=== PATIENT | female | born 1940 | race Caucasian/White ===

== ENCOUNTER 2016-09-09 16:08 | Inpatient (IN) | payer OTHER ==
[2016-09-09] VITALS (9 sets, daily range): BP systolic 75–97; BP diastolic 44–60; PULSE 91–101; RESP 19–26; TEMP 98.4; Ht 154.9 cm; Wt 60.1 kg
[~2016-09-09] VITALS: Ht 154.9 cm; Wt 60.1 kg
[~2016-09-09 16:08] MED LIST: ETOMIDATE 20 MG INJ ONE; ROCURONIUM 50 MG INJ ONE
--- NOTE | 2016-09-09 17:59 | ERA ---
ER Documentation Chief Complaint Date/Time DATE: 09/09/16 TIME: 17:59 Chief Complaint Back pain HPI The patient is a 75-year-old female, presenting to the ER because of right lower back pain, generalized weakness that began today. She complains of vomiting mostly mucus, dizziness, denies fever, chills, neck pain, chest pain, dyspnea, abdominal pain, diarrhea or constipation or dysuria. She does not smoke does not drink Past medical history: Diabetes mellitus Past surgical history: Right hip ROS All systems reviewed and are negative except as per history of present illness. Allergies Allergies: Coded Allergies: No Known Allergy (Unverified , 09/09/16) Physical Exam Vitals Vital Signs Date Time Temp Pulse Resp B/P Pulse Ox O2 Delivery O2 Flow Rate FiO2 09/09/16 19:29 98.9 09/09/16 16:14 98.8 68 22 88/49 97 Physical Exam Const: No acute distress. Head: Atraumatic. Eyes: Normal Conjunctiva. ENT: Normal External Ears, Nose and Mouth. Neck: Full range of motion. No meningismus. Resp: Clear to auscultation bilaterally. Cardio: Regular rate and rhythm, no murmurs. Abd: Soft, non distended, normal bowel sounds, right CVA tenderness, no right lower quadrant, right upper quadrant, epigastric tenderness Skin: No petechiae or rashes. Back: No midline or flank tenderness. Ext: No cyanosis, or edema. Neur: Awake and alert. No focal deficit Psych: Normal Mood and Affect. Result Diagram: 09/09/16 1810 09/09/16 1810 Results 24 hrs Laboratory Tests Test 09/09/16 16:32 09/09/16 18:10 09/09/16 19:57 Bedside Glucose 205mg/dL Activated Partial Thromboplast Time 23.6Sec Alanine Aminotransferase (ALT/SGPT) 15IU/L Albumin 3.3g/dl Albumin/Globulin Ratio 1.17 Alkaline Phosphatase 118IU/L Anion Gap 21 Aspartate Amino Transf (AST/SGOT) 33IU/L Band Neutrophils % 9.0% Blood Urea Nitrogen 23mg/dl Calcium Level 8.7mg/dl Carbon Dioxide Level 24mmol/L Chloride Level 100mmol/L Creatinine 1.58mg/dl Direct Bilirubin 0.00mg/dl Globulin 2.80g/dl Glucose Level 205mg/dl Hematocrit 37.2% Hemoglobin 12.6g/dl INR International Normalized Ratio 1.11 Indirect Bilirubin 0.4mg/dl Lactic Acid Level 9.1mmol/L Lymphocytes # 1.610^3/ul Lymphocytes % 7.0% Mean Corpuscular Hemoglobin 29.4pg Mean Corpuscular Hemoglobin Concent 33.7g/dl Mean Corpuscular Volume 87.3fl Mean Platelet Volume 8.4fl Neutrophils # 19.710^3/ul Neutrophils % 84.0% Platelet Count 99621^3/UL Platelet Estimate PLT APPEAR ADEQUATE Potassium Level 3.7mmol/L Prothrombin Time 14.3Sec Prothrombin Time Ratio 1.1 Red Blood Count 4.2610^6/ul Red Cell Distribution Width 13.9% Sodium Level 141mmol/L Total Bilirubin 0.4mg/dl Total Protein 6.1g/dl Troponin I < 0.012ng/ml White Blood Count 23.410^3/ul Bedside Urine Blood 1+ Bedside Urine Glucose (UA) Negative Bedside Urine Ketones (LAB) Negative Bedside Urine Leukocyte Esterase (L 3+ Bedside Urine Nitrite (LAB) Negative Bedside Urine Protein (LAB) 1+ Bedside Urine pH (LAB) 6.0 Current Medications Medications (Trade) Dose Ordered Sig/Nisreen Route PRN Reason Start Time Stop Time Status Last Admin Dose Admin Sodium Chloride 1950 ml 1,950 ml BOLUS OVER 2 HOURS STAT IV* 09/09/16 18:09 09/09/16 18:11 DC 09/09/16 18:37 Vancomycin HCl 250 ml @ 125 mls/hr ONCE IVPB 09/09/16 19:30 09/09/16 21:29 Piperacillin Sod/ Tazobactam Sod 50 ml @ 100 mls/hr ONCE ONCE IVPB 09/09/16 19:30 09/09/16 19:59 DC Sodium Chloride (NS) 1,000 ml @ 75 mls/hr [id number] IV 09/09/16 19:47 UNV Ondansetron HCl (Zofran Inj) 4 mg Q6H PRN IV NAUSEA AND/OR VOMITING 09/09/16 20:00 UNV Nitroglycerin (Nitroglycerin (Sl Tab) 0.4 Mg) 1 tab Q5M PRN SL CHEST PAIN 09/09/16 20:00 UNV Acetaminophen (Tylenol Liquid) 650 mg Q6H PRN PO PAIN LEVEL 1-3 OR FEVER 09/09/16 20:00 UNV Morphine Sulfate (morphine) 2 mg Q4H PRN IV PAIN LEVEL 7-10 09/09/16 20:00 UNV Lorazepam (Ativan) 1 mg Q2H PRN IV ANXIETY 09/09/16 20:00 UNV Docusate Sodium (Colace) 100 mg Q12H PRN PO CONSTIPATION 09/09/16 20:00 UNV Famotidine (Pepcid Iv) 20 mg Q12 IV 09/09/16 21:00 UNV Heparin Sodium (Porcine) (Heparin (5000 Units/0.5 ml)) 5,000 unit Q12 SC 09/09/16 21:00 UNV Insulin Aspart (Novolog Insulin Pen) NOVOLOG *MILD* ALGORITHM WITH MEALS BEDTIME SC 09/09/16 21:00 UNV Miscellaneous Information (* Miscellaneous Pharmacy Order) HYPOGLYCEMIA PROTOCOL w... ONCE ONCE XX 09/09/16 20:00 09/09/16 20:01 DC Miscellaneous Information (* Miscellaneous Pharmacy Order) Discontinue Glyburide, Glipizide,... ONCE ONCE XX 09/09/16 20:00 09/09/16 20:01 DC Miscellaneous Information Discontinue all previ... ONCE ONCE XX 09/09/16 20:00 09/09/16 20:01 DC Sodium Chloride 1,000 ml @ 1,000 mls/hr Q1H IV 09/09/16 19:47 09/09/16 21:46 UNV Piperacillin Sod/ Tazobactam Sod (Zosyn 3.375gm/ 100 ml (Pmx)) 100 ml @ 200 mls/hr Q6 IVPB 09/10/16 00:00 UNV Vancomycin HCl (Vanco Iv Per Pharmacy) VANCOMYCIN PER PHARMACY PER PROTOCOL XX 09/09/16 20:00 UNV Diagnostic Test (Pha) (Accucheck) 1 ea 02 XX 09/10/16 02:00 Miscellaneous Information 1 ea NOTE XX 09/09/16 20:30 Glucose (Glutose) 15 gm Q15M PRN PO DECREASED GLUCOSE 09/09/16 20:30 Glucose (Glutose) 22.5 gm Q15M PRN PO DECREASED GLUCOSE 09/09/16 20:30 Dextrose (D50w Syringe) 25 ml Q15M PRN IV DECREASED GLUCOSE 09/09/16 20:30 Dextrose (D50w Syringe) 50 ml Q15M PRN IV DECREASED GLUCOSE 09/09/16 20:30 Glucagon (Glucagen) 1 mg Q15M PRN IM DECREASED GLUCOSE 09/09/16 20:30 Glucose (Glutose) 15 gm Q15M PRN BUCCAL DECREASED GLUCOSE 09/09/16 20:30 Famotidine (Pepcid Iv) 20 mg DAILY IV 09/10/16 09:00 Procedures/[place] [id number] Radiology Main Line: [phone] DIAGNOSTIC IMAGING REPORT Patient: DARIUS WHITE : 1940 Age: 75 Sex: F MR #: [id number] DOS: 09/09/16 180 Ordering MD: SHAREE JENKINS MD Location: E/R Room/Bed: PROCEDURE: XR Chest. CLINICAL INDICATION: Sepsis TECHNIQUE: Chest AP portable COMPARISON: None available FINDINGS: The mediastinal structures are unremarkable. There is calcification of the thoracic aorta (consistent with atherosclerosis). The heart is normal in size and configuration. The pulmonary vascularity is normal. The lung modi are unremarkable. No consolidation is identified. The pleural spaces are unremarkable. There are senescent changes of the axial skeleton. IMPRESSION: Calcification of the thoracic aorta (consistent with atherosclerosis). No evidence for active cardiopulmonary disease. RPTAT: HGDB .Ayo Villarreal MD, Date Time Electronically viewed and signed by .Ayo Villarreal MD, on 09/09/2016 18:30 .B/ CC: SHAREE JENKINS MD MEDICAL MAKING DECISION: The patient is a 75-year-old female, presenting with acute septic shock. She was treated with normal saline 30 mL/kg IV, Zosyn IV, vancomycin IV with good response. The differential diagnoses considered include but are not limited to cholelithiasis, cholecystitis, cystitis, pancreatitis, hepatitis, gastritis, peptic ulcer disease, gastric ulcer, appendicitis, diverticulitis, cholangitis, choledocholithiasis, partial small bowel obstruction. Admit MDM: Patient's infectious symptoms have not stabilized and the patient is at risk of rapid decompensation. The patient will be admitted for careful hydration, antibiotic therapy, and infectious source control. Severe Sepsis criteria: Infectious source: Pyelonephritis End organ damage indicated by: Lactate > 2.0 mmol/L Hypotension (SBP < 90 or >40 mmHG drop or MAP < 65) Sepsis Management: Time of recognition of severe sepsis/septic shock:6:15 PM Within 3 hours of recognition: Blood cultures x 2 before broad-spectrum antibiotics: Yes 30 ml/kg NS bolus completed Initial lactate 9.1 Repeat lactate pending Critical Care: Critical care time 35 minutes Emergent fluid management while maintaining close respiratory support. Provision of immediate and broad-spectrum antibiotic therapy. Simultaneous assessment for possible sources in order to direct targeted therapy. Consideration for invasive and chemical support to prevent cardiopulmonary collapse. Septic Shock Assessment: Any lactic acid > 4.0 yes Persistent hypotension (SBP < 90 or 40 mmHg drop, MAP < 65) despite 30 mL/kg IV fluid bolusno Volume Re-assessment for Septic Shock (post 30 ml/kg bolus): Temp98.5 BP105/46 HR95, RR20, Pox 95% RA Heart regular rate & rhythm Lungs no crackles Skin Warm & dry & pink Cap Refill less than 2 seconds Peripheral pulses radially present Persistent Hypotension Treatment: Comfort care no Central line not indicated Vasopressor started not indicated I considered further perfusion assessment with CVP measurement, SCVO2, bedside ultrasound volume assessment, passive leg raise, trial of further fluid bolus. And proceeded withIV fluid Departure Diagnosis: Primary Impression: Septic shock Additional Impression: Pyelonephritis Condition: Critical Comments I discussed the findings with the patient. I discussed the patient with the on- call hospitalist Dr. Nj who was made aware of the lab, the treatment, the patient condition. The patient is admitted to ICU at 7:45 PM SHAREE JENKINS MD Sep 09, 2016 17:59
[2016-09-09] MEDS ORDERED: SODIUM CHLORIDE 0.9% 1L BAG IV* STA (18:09)
--- NOTE | 2016-09-09 18:30 | RADRPT ---
PROCEDURE: XR Chest. CLINICAL INDICATION: Sepsis TECHNIQUE: Chest AP portable COMPARISON: None available FINDINGS: The mediastinal structures are unremarkable. There is calcification of the thoracic aorta (consiste nt with atherosclerosis). The heart is normal in size and configuration. The pulmonary vascularity is normal. The lung modi are unremarkable. No consolidation is identified. The pleural spaces are unremarkable. There are senescent changes of the axial skeleton. IMPRESSION: Calcification of the thoracic aorta (consistent with atherosclerosis). No evidence for active cardiopulmonary disease. RPTAT: HGDB .Ayo Villarreal MD, MD Date Time Electronically viewed and signed by .Ayo Villarreal MD, on 09/09/2016 18:30 .B/
[2016-09-09 18:32] LABS: HEMATOCRIT 37.2 % (37.0-47.0); HEMOGLOBIN 12.6 g/dl (12.0-16.0); MEAN CORPUSCULAR HEMOGLOBIN 29.4 pg (29.0-33.0); MEAN CORPUSCULAR HGB CONC 33.7 g/dl (32.0-37.0); MEAN CORPUSCULAR VOLUME 87.3 fl (82.0-101.0); MEAN PLATELET VOLUME 8.4 fl (7.4-10.4); PLATELET COUNT 176 10^3/UL (140-440); RED BLOOD COUNT 4.26 10^6/ul (4.20-5.40); RED CELL DISTRIBUTION WIDTH 13.9 % (11.5-14.5); UNCORRECTED WBC 23.4 10^3/ul (4.8-10.8); WHITE BLOOD COUNT 23.4 10^3/ul (4.8-10.8)
[2016-09-09 18:35] LABS: CONDITION 1; LH ANALYZER COMMENTS 1; SUSPECT 1
[2016-09-09 18:39] LABS: ALBUMIN 3.3 g/dl (3.3-4.9); CHLORIDE 100 mmol/L (97-110); INR 1.11; POTASSIUM 3.7 mmol/L (3.5-5.1); PROTIME 14.3 Sec (12.2-14.2); PT RATIO 1.1; SODIUM 141 mmol/L (135-144)
[2016-09-09 18:41] LABS: BILIRUBIN,INDIRECT 0.4 mg/dl (0-1.1); BILIRUBIN,TOTAL 0.4 mg/dl (0.2-1.3); CREATININE 1.58 mg/dl (0.44-1.00)
[2016-09-09 18:42] LABS: ALANINE AMINOTRANSFERASE 15 IU/L (13-69); ALBUMIN/GLOBULIN RATIO 1.17; ALKALINE PHOSPHATASE 118 IU/L (42-121); ANION GAP 21 (8-16); ASPARTATE AMINO TRANSFERASE 33 IU/L (15-46); BLOOD UREA NITROGEN 23 mg/dl (7-20); CALCIUM 8.7 mg/dl (8.4-10.2); CARBON DIOXIDE 24 mmol/L (21-31); GLUCOSE 205 mg/dl (70-220); TOTAL PROTEIN 6.1 g/dl (6.1-8.1)
[2016-09-09 18:45] LABS: PARTIAL THROMBOPLASTIN TIME 23.6 Sec (25.0-35.0)
[2016-09-09 19:02] LABS: TROPONIN-I < 0.012 ng/ml (0.00-0.12)
[2016-09-09 19:10] LABS: LYMPHOCYTES # 1.6 10^3/ul (0.8-2.9); NEUTROPHIL # 19.7 10^3/ul (1.6-7.5); PLATELET ESTIMATE PLT APPEAR ADEQUATE
[2016-09-09] MEDS ORDERED: VANCOMYCIN 1 GM (PMX) 250 ML IVPB SCH (19:30)
[2016-09-09] MEDS ORDERED: PIPER-TAZO 2.25 GM (PMX) 50 ML IVPB ONE (19:30)
[2016-09-09 19:55] LABS: URINE BLOOD (Dip) POC 1+ (NEGATIVE)
[2016-09-09] MEDS ORDERED: DOCUSATE SODIUM 100 MG CAP PO PRN (20:00)
[2016-09-09] MEDS ORDERED: NITROGLYCERIN (SL) 0.4 MG TAB SL PRN (20:00)
[2016-09-09] MEDS ORDERED: VANCOMYCIN IV PER PHARMACY XX SCH (20:00)
[2016-09-09 20:12] LABS: ADD UMIC YES; URINE BILIRUBIN (Dip) NEGATIVE (NEGATIVE); URINE BLOOD (Dip) 1+ (NEGATIVE); URINE COLOR RED (YELLOW); URINE GLUCOSE (Dip) NEGATIVE (NEGATIVE); URINE KETONES (Dip) TRACE (NEGATIVE); URINE LEUKOCYTE ESTERASE (Dip) 3+ (NEGATIVE); URINE NITRITE (Dip) NEGATIVE (NEGATIVE); URINE TOTAL PROTEIN (Dip) TRACE (NEGATIVE); URINE UROBILINOGEN (Dip) 0.2 E.U./dL (0.1-1.0)
--- NOTE | 2016-09-09 20:23 | HP ---
Date/Time of Note Date/Time of Note DATE: 09/09/16 TIME: 20:15 Assessment/Plan VTE Prophylaxis VTE Prophylaxis Intervention: heparin Lines/Catheters Urinary Cath still in place: No Assessment/Plan Assessment/Plan 75 yo female with a past medical history of type II DM, chronic pain who complains of weakness and decreased urinary output for the last several days. 1. Severe Sepsis 2/2 UTI - leukocytosis/hypotension/lactic acidosis, will admit the patient to the ICU, monitor for acute changes, IVF, if needed pressor support, IV antibiotics, f/u blood and urine cultures, trend lactic acid 2. Acute renal failure - 2/2 to ATN - will renally adjust medications, check renal US, avoid nephrotoxins 3. Type II DM - uncontrolled - will check hgba1c, labs, ISS 4. Metabolic acidosis 2/2 #1 - will continue to monitor trend 5. GI ppx - pepcid 6. DVT ppx - heparin answered all of her questions. as per clinical course. this critical care note took greater than 1 hour to complete HPI/ROS Admit Date/Time Admit Date/Time 09/09/2016, 8:16 pm Hx of Present Illness 75 yo female with a past medical history of type II DM, chronic pain who complains of weakness and decreased urinary output for the last several days. She states that she has increasing fatigue. Associated with nausea and 4 episodes of NBNB vomitus. Her urine output has decreased dramatically and is not getting any better at this time. Denies any discharge, hematuria, or increased frequency. She complains of chills, and mild flank pain on the right in comparison to the left. Denies any chest pain, shortness of breath, recent travel, headaches, sick contacts, dizziness, or other constitutional symptoms. ED course: NS boluses x2 for hypotension, IV antibiotics ROS 14 point review of systems completed, please refer to HPI for any positive findings PMH/Family/Social Past Medical History chronic back pain Medical History: diabetes Past Surgical History ALVARO-BSO Family History Significant Family History: no pertinent family hx, heart disease (none), cancer (none), COPD (none) Social History Alcohol Use: none Smoking Status: Current every day smoker (1 cig/day) Drug Use: none Exam/Review of Systems Vital Signs Vitals Vital Signs Date Time Temp Pulse Resp B/P Pulse Ox O2 Delivery O2 Flow Rate FiO2 2/20/17 19:29 98.9 09/09/16 16:14 68 22 88/49 97 Exam Exam Gen Sheeba: mild to moderate distress 2/2 to right flank pain, AAOx4 HEENT: NC/AT, PERRLA, EOMI, no pharyngeal erythema, no tonsillar exudates, no lymphadenopathy, no JVD, no carotid bruits, MM dry NECK: supple, no thyromegaly THORAX: symmetrical, no obvious deformities CV: S1S2, RRR, no M/G/R Lungs: CTAB no W/C/R/R Abd: soft, NT/ND, +BS, no rebound, no guarding, neg HSM, mild right CVA tenderness EXT: no edema, no ecchymosis, no clubbing, FROM Neuro: CN II-XII grossly intact, no focal deficits Psych: good mentation, alert and oriented, fair mood and affect Skin: C/D/I Labs Result Diagram: 09/09/16180909/09/16 181 Medications Medications Current Medications Vancomycin HCl 250 ml @ 125 mls/hr ONCE IVPB ; Start 09/09/16 at 19:30; Stop at 21:29 Sodium Chloride (NS) 1,000 ml @ 75 mls/hr [id number] IV ; Start 09/09/16 at 19:47 Ondansetron HCl (Zofran Inj) 4 mg Q6H PRN IV NAUSEA AND/OR VOMITING; Start at 20:00 Nitroglycerin (Nitroglycerin (Sl Tab) 0.4 Mg) 1 tab Q5M PRN SL CHEST PAIN; Start 09/09/16 at 20:00 Acetaminophen (Tylenol Liquid) 650 mg Q6H PRN PO PAIN LEVEL 1-3 OR FEVER; Start 09/09/16 at 20:00 Morphine Sulfate (morphine) 2 mg Q4H PRN IV PAIN LEVEL 7-10; Start 09/09/16 at 20:00 Lorazepam (Ativan) 1 mg Q2H PRN IV ANXIETY; Start 09/09/16 at 20:00 Docusate Sodium (Colace) 100 mg Q12H PRN PO CONSTIPATION; Start 09/09/16 at 20: 00 Heparin Sodium (Porcine) 5000 unit 5,000 unit Q12 SC ; Start 09/09/16 at 21:00 Sodium Chloride 1,000 ml @ 1,000 mls/hr Q1H IV ; Start 09/09/16 at 19:47; Stop 09/09/16 at 21:46 Piperacillin Sod/ Tazobactam Sod (Zosyn 3.375gm/ 100 ml (Pmx)) 100 ml @ 200 mls /hr Q6 IVPB ; Start 09/10/16 at 00:00 Diagnostic Test (Pha) (Accucheck) 1 ea 02 XX ; Start 09/10/16 at 02:00 Miscellaneous Information 1 ea NOTE XX ; Start 09/09/16 at 20:30 Glucose (Glutose) 15 gm Q15M PRN PO DECREASED GLUCOSE; Start 09/09/16 at 20:30 Glucose (Glutose) 22.5 gm Q15M PRN PO DECREASED GLUCOSE; Start 09/09/16 at 20: 30 Dextrose (D50w Syringe) 25 ml Q15M PRN IV DECREASED GLUCOSE; Start 09/09/16 at 20:30 Dextrose (D50w Syringe) 50 ml Q15M PRN IV DECREASED GLUCOSE; Start 09/09/16 at 20:30 Glucagon (Glucagen) 1 mg Q15M PRN IM DECREASED GLUCOSE; Start 09/09/16 at 20:30 Glucose (Glutose) 15 gm Q15M PRN BUCCAL DECREASED GLUCOSE; Start 09/09/16 at 20 :30 Famotidine 20 mg 20 mg DAILY IV ; Start 09/10/16 at 09:00 Sodium Chloride (NS) 1,000 ml @ 1,000 mls/hr Q1H ONCE IV ; Start 09/09/16 at 20 :30; Stop 09/09/16 at 21:29 Procedures Procedures CXR IMPRESSION: Calcification of the thoracic aorta (consistent with atherosclerosis). No evidence for active cardiopulmonary disease. LUIGI KIM MD Sep 09, 2016 20:23
[2016-09-09] MEDS ORDERED: GLUCOSE GEL 15 GRAM TUBE PO PRN ×2 (20:30)
[2016-09-09] MEDS ORDERED: SOD CHLORIDE 0.9% 1,000 ML IV ONE (20:30)
[2016-09-09] MEDS ORDERED: DEXTROSE 50% 50 ML SYRINGE IV PRN (20:30)
[2016-09-09] MEDS ORDERED: GLUCOSE GEL 15 GRAM TUBE BUCCAL PRN (20:30)
[2016-09-09] MEDS ORDERED: GLUCAGON 1 MG INJ IM PRN (20:30)
[2016-09-09 20:36] LABS: BACTERIA,URINE MANY
[2016-09-09] MEDS: SOD CHLORIDE 0.9% 1,000 ML IV SCH ×3 (20:36→20:47)
--- NOTE | 2016-09-09 20:49 | RADRPT ---
PROCEDURE: Retroperitoneal ultrasound. CLINICAL INDICATION: Flank pain TECHNIQUE: Sainz scale and color doppler ultrasound images of the retroperitoneum, kidneys, urinary bladder COMPARISON: No prior studies are available for comparison. FINDINGS: Right kidney 12.9 cm in length. Right renal cortical thickness is preserved. Left kidney 11.5 cm in length. Left renal cortical thickness is preserved. Normal echogenicity. Mild right-sided hydronephrosis. No renal calculi. A few cortical and parapelvic cysts are present within the right kidney measuring up to 1.7 cm. Bladder: Urinary bladder is not well distended however there appears to be significant wall thickening measur ing at least 9.6 mm. Partial visualization of gallstones. IMPRESSION: Mild right-sided hydronephrosis. No renal calculi are seen. Apparent wall thickening of the urinary bladder possibly due to under distension. Recommend correla tion with urinalysis. Incidental finding of gallstones. RPTAT: AADD .Lalo Gee MD, MD Date Time Electronically viewed and signed by .Lalo Gee MD, on 09/09/2016 20:49 .B/
[2016-09-09] MEDS: INSULIN ASPART [NOVOLOG] 3 ML PEN SC SCH (21:00)
[2016-09-09] MEDS ORDERED: FAMOTIDINE 20 MG INJ IV SCH (21:00)
[2016-09-09 21:44] LABS: HEMATOCRIT 34.4 % (37.0-47.0); HEMOGLOBIN 11.4 g/dl (12.0-16.0); MEAN CORPUSCULAR HEMOGLOBIN 29.2 pg (29.0-33.0); MEAN CORPUSCULAR HGB CONC 33.2 g/dl (32.0-37.0); MEAN PLATELET VOLUME 7.4 fl (7.4-10.4); PLATELET COUNT 193 10^3/UL (140-440); RED CELL DISTRIBUTION WIDTH 14.2 % (11.5-14.5); UNCORRECTED WBC 26.7 10^3/ul (4.8-10.8); WHITE BLOOD COUNT 26.7 10^3/ul (4.8-10.8)
[2016-09-09] MEDS: HEPARIN 5,000 UNIT/0.5 ML SYG SC SCH (21:47)
[2016-09-09 21:48] LABS: CONDITION 1; LH ANALYZER COMMENTS 1; SUSPECT 1
[2016-09-09 21:57] LABS: INR 1.38; PT RATIO 1.3
[2016-09-09 21:58] LABS: PARTIAL THROMBOPLASTIN TIME 41.2 Sec (25.0-35.0)
[2016-09-09 21:59] LABS: ALBUMIN 2.6 g/dl (3.3-4.9); CHLORIDE 106 mmol/L (97-110)
[2016-09-09 22:00] LABS: POTASSIUM 3.3 mmol/L (3.5-5.1); SODIUM 144 mmol/L (135-144)
[2016-09-09 22:02] LABS: ALANINE AMINOTRANSFERASE 16 IU/L (13-69); ALBUMIN/GLOBULIN RATIO 0.96; ALKALINE PHOSPHATASE 84 IU/L (42-121); ANION GAP 20 (8-16); ASPARTATE AMINO TRANSFERASE 28 IU/L (15-46); BILIRUBIN,INDIRECT 0.2 mg/dl (0-1.1); BILIRUBIN,TOTAL 0.2 mg/dl (0.2-1.3); BLOOD UREA NITROGEN 21 mg/dl (7-20); CARBON DIOXIDE 21 mmol/L (21-31); CREATININE 1.33 mg/dl (0.44-1.00); GLUCOSE 147 mg/dl (70-220); TOTAL PROTEIN 5.3 g/dl (6.1-8.1)
[2016-09-09 22:03] LABS: CALCIUM 7.1 mg/dl (8.4-10.2); LACTATE DEHYDROGENASE 461 IU/L (313-618)
[2016-09-09 22:07] LABS: LYMPHOCYTES # 0.5 10^3/ul (0.8-2.9)
[2016-09-09 22:08] LABS: PLATELET ESTIMATE PLT APPEAR ADEQUATE
[2016-09-09] MEDS ORDERED: POTASSIUM CHLORIDE (SR) 20 MEQ TAB PO STA (22:14)
[2016-09-09 22:18] LABS: TROPONIN-I < 0.012 ng/ml (0.00-0.12)
[2016-09-09] MEDS ORDERED: MAGNESIUM SULFATE 3 GM in SOD CHLORIDE 0.9% 100 ML IVPB ONE (22:30)
[2016-09-10] VITALS (95 sets, daily range): BP systolic 64–155; BP diastolic 36–83; PULSE 91–149; RESP 12–34
[2016-09-10] MEDS: PIPER-TAZO 3.375 GM IV (PMX) 100 ML IVPB SCH ×3 (00:48→12:40)
[2016-09-10] MEDS: ACCUCHECK AT 2AM (Patients on SS coverage) XX SCH (02:08)
[2016-09-10] MEDS: morphine 2 MG INJ IV PRN ×2 (02:10→23:03)
[2016-09-10] MEDS: ONDANSETRON 4 MG INJ IV PRN ×2 (02:15→23:03)
[2016-09-10 04:58] LABS: EOSINOPHILS % 0.3 % (0.0-7.0); HEMATOCRIT 35.4 % (37.0-47.0); LYMPHOCYTES # 0.2 10^3/ul (0.8-2.9); LYMPHOCYTES % 2.2 % (15.0-51.0); MEAN CORPUSCULAR HEMOGLOBIN 29.7 pg (29.0-33.0); MEAN CORPUSCULAR VOLUME 87.4 fl (82.0-101.0); MEAN PLATELET VOLUME 8.1 fl (7.4-10.4); MONOCYTE # 0.2 10^3/ul (0.3-0.9); MONOCYTES % 1.5 % (0.0-11.0); NEUTROPHIL # 10.7 10^3/ul (1.6-7.5); PLATELET COUNT 172 10^3/UL (140-440); RED BLOOD COUNT 4.05 10^6/ul (4.20-5.40); RED CELL DISTRIBUTION WIDTH 14.4 % (11.5-14.5); UNCORRECTED WBC 11.1 10^3/ul (4.8-10.8); WHITE BLOOD COUNT 11.1 10^3/ul (4.8-10.8)
[2016-09-10 05:02] LABS: POTASSIUM 3.7 mmol/L (3.5-5.1)
[2016-09-10 05:04] LABS: CREATININE 1.5 mg/dl (0.44-1.00)
[2016-09-10 05:05] LABS: CALCIUM 7.5 mg/dl (8.4-10.2)
[2016-09-10 05:53] LABS: CONDITION 1; LH ANALYZER COMMENTS 1; SUSPECT 1
--- NOTE | 2016-09-10 07:44 | EN ---
Date/Time of Note Date/Time of Note DATE: 09/10/16 TIME: 07:40 ER Progress Note I was called to the intensive care unit to place a central line. In short: This is a 75-year-old female presents to the ICU with hypotension requiring pressors. The patient is becoming more confused and requiring pressor support. On exam: The patient is in slight distress, slightly confused and generally weak, decreased capillary refill is noted, the patient is hypotensive on the monitor. Assessment and plan: Central Line Note: Consent: The patient had been consented by the ICU team using a tetryl blender operator. The document was signed and placed in the chart Indication: Critically ill patient requiring specialized vascular access for fluid or pressor management Location: Right IJ Procedure: Sterile procedure was observed throughout insertion of the central line. The insertion site was prepped with sterile solution. Ultrasound-guided identification of the vein was performed. Insertion of a needle into the vein was obtained with return of dark, nonpulsatile blood. The wire was then threaded through the needle without complication. The wire was then identified within the vein using ultrasound. A small skin incision was made, the needle was removed intact, dilation of the vein was performed and insertion of a triple lumen catheter was completed. The catheter was then sutured to the skin. All 3 ports inocencio back and flushed without difficulty. A sterile dressing was applied. The patient tolerated the procedure well there were no complications. Emergency Bedside Ultrasound: Indication: Central line Probe Type: Linear Findings: Dynamic ultrasound utilizing compressive technique with both linear and horizontal views, additional images showing wire within the venous system were obtained. The images unable to be saved given that the ultrasound does not have printer capability. The patient tolerated the procedure well and there were no complications. A post-line chest x-ray was ordered as indicated. Chest x-ray: I reviewed and interpreted a 1 view of the chest Mediastinum: No enlargement Cardiac silhouette: No cardiomegaly Airspace: Clear lung modi bilaterally without evidence of pneumothorax Bones: No evidence of fracture Triple-lumen catheter in good position Managing nurse and team notified of placement and ability to use the triple lumen catheter. Diagnostic impression Acute encephalopathy Hypotension Shock MIKAL NARANJO MD Sep 10, 2016 07:44
--- NOTE | 2016-09-10 07:55 | RADRPT ---
PROCEDURE: XR Chest 1 View. CLINICAL INDICATION: Status post central line placement TECHNIQUE: AP view of the chest were obtained. COMPARISON: Yesterday FINDINGS: The heart size is within normal limits. Calcified atherosclerosis is noted in the aorta. Right-side d central line has its tip in the expected location of the mid superior vena cava. The lungs are hy perexpanded. Mild elevation right hemidiaphragm is observed. Atelectasis is seen at the lung bases . No consolidations are identified. No pneumothorax is seen. The osseous structures are unchanged. IMPRESSION: Calcified atherosclerosis in the aorta. Right-sided central line with its tip in the expected location of the mid superior vena cava. No pn eumothorax. Hyperexpanded lungs with mild elevation right hemidiaphragm. Atelectasis at the lung bases. RPTAT: AA .Praveen Martell MD, MD Date Time Electronically viewed and signed by .Praveen Martell MD, MD on 09/10/2016 07:54 .P/
[2016-09-10] MEDS: INSULIN ASPART [NOVOLOG] 3 ML PEN SC SCH ×4 (08:35→21:00)
[2016-09-10] MEDS: SOD CHLORIDE 0.9% 1,000 ML IV SCH ×2 (09:39→22:27)
[2016-09-10] MEDS: HEPARIN 5,000 UNIT/0.5 ML SYG SC SCH ×2 (09:39→21:24)
[2016-09-10] MEDS: FAMOTIDINE 20 MG INJ IV SCH (09:39)
[2016-09-10] MEDS ORDERED: LIDOCAINE 1% (MDV) 20 ML INJ ONE ×2 (11:28→11:29)
[2016-09-10] MEDS ORDERED: CEFAZOLIN 1 GM/50 ML (PMX) 50 ML IVPB ONE (11:29)
[2016-09-10] MEDS ORDERED: MIDAZOLAM 1 MG/ML 2 ML INJ ONE (11:29)
[2016-09-10] MEDS ORDERED: HEPARIN 1000 UNITS/ML 10 ML INJ ONE (11:29)
[2016-09-10] MEDS ORDERED: SOD CHLORIDE 0.9% 1,000 ML ONE (11:30)
[2016-09-10] MEDS ORDERED: DIPHENHYDRAMINE 50 MG INJ ONE (11:30)
[2016-09-10] MEDS ORDERED: FENTAnyl 50 MCG/ML VIAL ONE (11:30)
[2016-09-10] MEDS: LORAZEPAM 2 MG INJ IV PRN ×2 (17:37→21:43)
[2016-09-10] MEDS ORDERED: FUROSEMIDE 40 MG INJ ONE (17:45)
[2016-09-10] MEDS ORDERED: FUROSEMIDE 40 MG INJ IV ONE (18:00)
--- NOTE | 2016-09-10 18:21 | RADRPT ---
PROCEDURE: XR Chest 1 View. CLINICAL INDICATION: Shortness of breath TECHNIQUE: AP view of the chest were obtained. COMPARISON: September 10, 2016 at 07:29 a.m. FINDINGS: The heart size is within normal limits. Calcified atherosclerosis is noted in the aorta. Right-side d central line is stable. Lungs are hyperexpanded. Diffuse mild interstitial prominence in both santiago ngs is unchanged. Small right pleural effusion with associated basilar atelectasis is observed. No consolidations are identified. No pneumothorax is seen. The osseous structures are unchanged. IMPRESSION: Calcified atherosclerosis in the aorta. Hyperexpanded lungs with diffuse mild interstitial prominence in both lungs. Interstitial prominenc e could be chronic. Findings could reflect COPD. Interval development of small right pleural effusion with associated basilar atelectasis. RPTAT: AA .Praveen Martell MD, Date Time Electronically viewed and signed by .Praveen Martell MD, MD on 09/10/2016 18:21 .P/
[2016-09-10] MEDS ORDERED: NORepinephrine 32 MG in DEXTROSE 5% 218 ML IV SCH ×2 (18:30→19:30)
[2016-09-10 18:37] LABS: AADO2 Arterial 166.4 mmHg (7.0-24.0); Allen Test ACCEPTAB; Arterial Base Excess -12.1 mmol/L (-3.0-3); Arterial COHb 0.3 % (0.0-3.0); Arterial Fraction of Oxyhgb 98.9 % (93.0-99.0); Arterial HCO3 13.9 mmol/L (22.0-26.0); Arterial MetHb 0.5 % (0.0-1.5); Arterial Total Hemglobin 12.7 g/dl (12.0-18.0); Blood Gas IEPAP 12; Blood Gas PS 20/8; MODE MASK - BIPAP
--- NOTE | 2016-09-10 18:49 | EN ---
Date/Time of Note Date/Time of Note DATE: 09/10/16 TIME: 18:42 Event Note Medicine Medicine Event Note Patient developed acute episode of shortness of breath and tachypnea and agitation. Patient was evaluated stat. IV Lasix 40 mg given stat chest x-ray ordered, stat EKG reviewed by myself, negative for ST elevations or depression concerning for acute ischemic infarct. Stat ABG ordered. Patient was placed on BiPAP, ABG confirmed presence of acidosis. Continue supportive BiPAP therapy / rule out an acute coronary syndrome / cardiology pulmonary and infectious diseases consultation. Critical care time 35 minutes. EMILIANO HENDRICKS Sep 10, 2016 18:49
[2016-09-10 19:10] LABS: CK-MB 1.53 ng/ml (0.0-2.4)
[2016-09-10 19:13] LABS: TROPONIN-I 0.097 ng/ml (0.00-0.12)
[2016-09-10] MEDS: ALBUMIN HUMAN 25% 100 ML IV SCH ×3 (19:31→21:28)
[2016-09-10] MEDS ORDERED: VANCOMYCIN 750 MG in SOD CHLORIDE 0.9% 150 ML IVPB SCH (20:00)
[2016-09-10] MEDS: DOCUSATE SODIUM 100 MG CAP PO SCH (20:00)
[2016-09-10 20:24] LABS: POTASSIUM 5.1 mmol/L (3.5-5.1)
[2016-09-10 20:27] LABS: CALCIUM 7.4 mg/dl (8.4-10.2); CREATININE 2.59 mg/dl (0.44-1.00)
[2016-09-10 20:35] LABS: AADO2 Arterial 203.8 mmHg (7.0-24.0); Allen Test ACCEPTAB; Arterial Base Excess -9.2 mmol/L (-3.0-3); Arterial COHb 0.3 % (0.0-3.0); Arterial Fraction of Oxyhgb 98.7 % (93.0-99.0); Arterial HCO3 15.5 mmol/L (22.0-26.0); Arterial MetHb 0.6 % (0.0-1.5); Arterial Total Hemglobin 12.1 g/dl (12.0-18.0); Blood Gas IEPAP 20/8; Blood Gas PS 12; MODE MASK - BIPAP
[2016-09-10] MEDS ORDERED: PIPER-TAZO 3.375 GM IV (PMX) 100 ML IVPB SCH (22:00)
[2016-09-10] MEDS: PHENYLephrine 160 MG in DEXTROSE 5% 484 ML IV SCH (22:05)
[2016-09-10] MEDS: NORepinephrine 32 MG in DEXTROSE 5% 218 ML IV SCH (22:26)
[2016-09-11] VITALS (103 sets, daily range): BP systolic 70–140; BP diastolic 36–94; PULSE 84–110; RESP 13–32
[2016-09-11] MEDS: LORAZEPAM 2 MG INJ IV PRN ×2 (00:03→04:06)
[2016-09-11 00:47] LABS: CK-MB 1.69 ng/ml (0.0-2.4)
[2016-09-11 01:05] LABS: TROPONIN-I 0.211 ng/ml (0.00-0.12)
[2016-09-11] MEDS: ACCUCHECK AT 2AM (Patients on SS coverage) XX SCH (02:00)
[2016-09-11 04:48] LABS: HEMATOCRIT 30.2 % (37.0-47.0); MEAN CORPUSCULAR HEMOGLOBIN 29.7 pg (29.0-33.0); MEAN CORPUSCULAR HGB CONC 33.2 g/dl (32.0-37.0); MEAN CORPUSCULAR VOLUME 89.5 fl (82.0-101.0); MEAN PLATELET VOLUME 9.2 fl (7.4-10.4); PLATELET COUNT 62 10^3/UL (140-440); RED BLOOD COUNT 3.38 10^6/ul (4.20-5.40)
[2016-09-11 05:05] LABS: CALCIUM 7.3 mg/dl (8.4-10.2)
[2016-09-11 05:13] LABS: CONDITION 1; LH ANALYZER COMMENTS 1; SUSPECT 1
[2016-09-11 05:18] LABS: CK-MB 2.08 ng/ml (0.0-2.4)
[2016-09-11 05:26] LABS: CREATININE 3.15 mg/dl (0.44-1.00)
[2016-09-11 05:27] LABS: TROPONIN-I 0.234 ng/ml (0.00-0.12)
[2016-09-11] MEDS ORDERED: VANCOMYCIN 750 MG in SOD CHLORIDE 0.9% 150 ML IVPB SCH (06:00)
--- NOTE | 2016-09-11 07:10 | CONS ---
Date/Time of Note Date/Time of Note DATE: 09/11/16 TIME: 07:03 Assessment/Plan Assessment/Plan Additional Assessment/Plan Chest x-ray was reviewed from yesterday which is totally clear. Labs were reviewed as well patient on developing acute renal failure. With mild metabolic acidosis. ABG also was reviewed from yesterday which is showing normal PO2 100% FiO2 on BiPAP with evidence of hyperventilation. Next Assessment and recommendations; 1. Patient admitted with severe gram-negative sepsis from UTI. 2. Severe hypotension on high-dose pressor support. 3. Developing acute renal failure and metabolic acidosis. 4. Worsening mental status. 5. Patient hyperventilating as a compensatory mechanism. 6. Developing thrombocytopenia indicative of underlying sepsis. He will need to be intubated and put on invasive mechanical ventilation. Meanwhile administer sodium bicarb. Chest x-ray and an ABG. Continue current supportive care. Continue current antibiotics. Prognosis is guarded. Patient may need a CT of the head done. Consultation Date/Type/Reason Admit Date/Time 09/09/2016, 8:16 pm Date of Consultation: Sep 11, 2016 Type of Consultation: Pulmonary/critical care Reason for Consultation Patient is a 75-year-old lady who was admitted on the of this month with complaints of decreased urinary output. The patient over the last 24 hours has taken a turn for the worse now admitted to ICU on high-dose pressor support. Consultation obtained for impending respiratory failure and sepsis. History presenting; 75-year-old lady admitted 2 days ago with complaints of decreased urine output patient was diagnosed with severe UTI as well as gram- negative sepsis. Her course has been of decline with patient now developing renal failure as well as metabolic acidosis. Also requiring high-dose pressor support with combination Levophed and Michael-Synephrine drips. Patient mental status also has been poor over the last 24 hours to the point where the patient currently is essentially unresponsive. Patient has been adequately fluid resuscitated as well as provided with broad-spectrum antibiotic coverage. The time I saw the patient I see the patient is on nasal cannula unresponsive. Appearing tachypneic. Past medical history; 1. Patient is a history of any back pain. 2. Total abdominal hysterectomy with a large ventral hernia. 3. No show any diabetes, hypertension or any renal insufficiency. Medications; were reviewed. Allergies; none. Social history; patient is a very scant smoker not more than 1 cigarette per day. No history of alcohol or drug abuse. Family history; currently not available. Occupational history; not available. Review of systems; currently not obtainable. General examination; elderly woman, on nasal cannula appearing tachypneic and unresponsive. Past Medical History Medical History: diabetes Social History Alcohol Use: none Smoking Status: Former smoker Drug Use: none Exam/Review of Systems Vital Signs Vitals Vital Signs Date Time Temp Pulse Resp B/P Pulse Ox O2 Delivery O2 Flow Rate FiO2 09/11/16 06:45 98.5 95 23 106/47 97 09/11/16 06:00 Nasal Cannula 5.0 09/10/16 19:30 100 Intake and Output 09/10/16 09/10/16 09/11/16 15:00 23:00 07:00 Intake Total 881.25 ml 970.75 ml 164.05 ml Output Total 150 ml 125 ml 55 ml Balance 731.25 ml 845.75 ml 109.05 ml Exam H EENT examination; supple neck, no JVD. No lymphadenopathy. Patient is edentulous. And he has dentures. Pupils are small bilaterally. Chest examination; clear to auscultation bilaterally. S1-S2 audible, no murmurs. Regular rhythm. Abdomen examination; there is a very large reducible ventral hernia present. There is a well-healed laparotomy scar present. Bowel sounds are sluggish. Umbilicus is flat. No organomegaly felt. Extremity examination; no peripheral edema. MICA INSPECTOR examination; patient is essentially unresponsive. Results Result Diagram: 09/11/16 0400 09/11/16 0400 Results 24 hrs Laboratory Tests Test 09/10/16 08:35 09/10/16 10:13 09/10/16 12:30 09/10/16 14:20 Bedside Glucose 136 189 Lactic Acid Level 4.0 H 4.7 *H Test 09/10/16 17:54 09/10/16 18:13 09/10/16 18:20 09/10/16 18:30 Arterial Blood HCO3 13.9 L Arterial Blood Base Excess -12.1 L Arterial Blood Oxygen Saturation 99.7 Jarett Test ACCEPTAB Arterial Blood Gas Puncture Site Right Radial Arterial Blood Carboxyhemoglobin 0.3 Arterial Blood Date Drawn 09/10/2016 6:25:03 PM Arterial Blood Methemoglobin 0.5 Arterial Blood pCO2 (Temp correct) 32.2 L Arterial Blood pH (Temp corrected) 7.253 *L Arterial Blood pO2 (Temp corrected) 514.4 H Blood Gas A-a O2 Differential 166.4 H Blood Gas Actual Respiration Rate 25 Blood Gas Critical Value Read Back Barbara CHISHOLM RN Blood Gas IPAP/EPAP Ratio 12 Blood Gas Modality MASK - BIPAP Blood Gas Notified Time 09/10/2016 6:37:12 PM Blood Gas Notified Whom DT Blood Gas Pressure Support 20 Blood Gas Respiration Rate 16.0 Blood Gas Specimen Source Blood arterial Blood Gas Temperature 37.0 FiO2 100.0 Oxyhemoglobin Percent 98.9 Total Hemoglobin 12.7 Lactic Acid Level 5.2 *H Creatine Kinase 28 Creatine Kinase Index 5.5 Creatinine Kinase MB (Mass) 1.53 Troponin I 0.097 Bedside Glucose 148 Test 09/10/16 20:00 09/10/16 20:30 09/10/16 21:23 09/10/16 21:46 Anion Gap 21 H Blood Urea Nitrogen 38 #H Calcium Level 7.4 L Carbon Dioxide Level 19 L Chloride Level 105 Creatinine 2.59 #H Glucose Level 131 Lactic Acid Level 4.6 *H 4.0 H Potassium Level 5.1 Sodium Level 140 Arterial Blood HCO3 15.5 L Arterial Blood Base Excess -9.2 L Arterial Blood Oxygen Saturation 99.6 Jarett Test ACCEPTAB Arterial Blood Gas Puncture Site Left Radial Arterial Blood Carboxyhemoglobin 0.3 Arterial Blood Date Drawn 09/10/2016 8:28:03 PM Arterial Blood Methemoglobin 0.6 Arterial Blood pCO2 (Temp correct) 30.1 L Arterial Blood pH (Temp corrected) 7.329 L Arterial Blood pO2 (Temp corrected) 479.1 H Blood Gas A-a O2 Differential 203.8 H Blood Gas Actual Respiration Rate 21 Blood Gas IPAP/EPAP Ratio 20 Blood Gas Modality MASK - BIPAP Blood Gas Notified Time 09/10/2016 8:34:59 PM Blood Gas Notified Whom KM Blood Gas Pressure Support 12 Blood Gas Respiration Rate 16.0 Blood Gas Specimen Source Blood arterial Blood Gas Temperature 37.0 FiO2 100.0 Oxyhemoglobin Percent 98.7 Total Hemoglobin 12.1 Bedside Glucose 114 Test 09/11/16 00:10 09/11/16 02:06 09/11/16 04:00 Creatine Kinase 65 55 Creatine Kinase Index 2.6 3.8 Creatinine Kinase MB (Mass) 1.69 2.08 Troponin I 0.211 *H 0.234 *H Bedside Glucose 110 Anion Gap 23 H Blood Morphology Comment Blood Urea Nitrogen 43 H Calcium Level 7.3 L Carbon Dioxide Level 18 L Chloride Level 105 Creatinine 3.15 H Glucose Level 107 Hematocrit 30.2 L Hemoglobin 10.0 L Lactic Acid Level 3.9 H Mean Corpuscular Hemoglobin 29.7 Mean Corpuscular Hemoglobin Concent 33.2 Mean Corpuscular Volume 89.5 Mean Platelet Volume 9.2 Platelet Count 62 #L Potassium Level 5.0 Red Blood Count 3.38 L Red Cell Distribution Width 15.0 H Sodium Level 141 White Blood Count 34.0 #H Medications Medications Current Medications Sodium Chloride (NS) 1,000 ml @ 75 mls/hr [id number] IV Last administered on 09/10 09:39; Admin Dose 75 MLS/HR; Start 09/09/16 at 19:47; Status Future Hold Ondansetron HCl (Zofran Inj) 4 mg Q6H PRN IV NAUSEA AND/OR VOMITING Last administered on 09/10/16 23:03; Admin Dose 4 MG; Start 09/09/16 at 20:00 Nitroglycerin (Nitroglycerin (Sl Tab) 0.4 Mg) 1 tab Q5M PRN SL CHEST PAIN; Start 09/09/16 at 20:00 Acetaminophen (Tylenol Liquid) 650 mg Q6H PRN PO PAIN LEVEL 1-3 OR FEVER; Start 09/09/16 at 20:00 Morphine Sulfate (morphine) 2 mg Q4H PRN IV PAIN LEVEL 7-10 Last administered on 09/10/16 23:03; Admin Dose 2 MG; Start 09/09/16 at 20:00 Lorazepam (Ativan) 1 mg Q2H PRN IV ANXIETY Last administered on 09/11/16 04:06 ; Admin Dose 1 MG; Start 09/09/16 at 20:00 Heparin Sodium (Porcine) (Heparin (5000 Units/0.5 ml)) 5,000 unit Q12 SC Last administered on 09/10/16 21:24; Admin Dose 5,000 UNIT; Start 09/09/16 at 21:00 ; Status Future Hold Diagnostic Test (Pha) (Accucheck) 1 ea 02 XX Last administered on 09/10/16 02: 08; Admin Dose 1 EA; Start 09/10/16 at 02:00 Miscellaneous Information 1 ea NOTE XX ; Start 09/09/16 at 20:30 Glucose (Glutose) 15 gm Q15M PRN PO DECREASED GLUCOSE; Start 09/09/16 at 20:30 Glucose (Glutose) 22.5 gm Q15M PRN PO DECREASED GLUCOSE; Start 09/09/16 at 20: 30 Dextrose (D50w Syringe) 25 ml Q15M PRN IV DECREASED GLUCOSE; Start 09/09/16 at 20:30 Dextrose (D50w Syringe) 50 ml Q15M PRN IV DECREASED GLUCOSE; Start 09/09/16 at 20:30 Glucagon (Glucagen) 1 mg Q15M PRN IM DECREASED GLUCOSE; Start 09/09/16 at 20:30 Glucose (Glutose) 15 gm Q15M PRN BUCCAL DECREASED GLUCOSE; Start 09/09/16 at 20 :30 Famotidine 20 mg 20 mg DAILY IV Last administered on 09/10/16 09:39; Admin Dose 20 MG; Start 09/10/16 at 09:00 Piperacillin Sod/ Tazobactam Sod 100 ml @ 200 mls/hr Q8 IVPB Last administered on 09/10/16 21:30; Admin Dose 200 MLS/HR; Start 09/10/16 at 22:00 Vancomycin HCl/ Sodium Chloride (Vancocin/NS) 150 ml @ 75 mls/hr Q36H IVPB Last administered on 09/11/16 05:56; Admin Dose 75 MLS/HR; Start 09/11/16 at 06 :00 Docusate Sodium 100 mg 100 mg Q12H PO ; Start 09/10/16 at 20:00 Albumin Human 100 ml @ 100 mls/hr Q8H IV Last administered on 09/10/16 21:28 ; Admin Dose 100 MLS/HR; Start 09/10/16 at 19:30; Stop 09/11/16 at 12:29 Phenylephrine HCl 160 mg/Dextrose 500 ml @ 0 mls/hr TITRATE IV Last administered on 09/10/16 22:05; Admin Dose 18.75 MLS/HR; Start 09/10/16 at 19: 30 Norepinephrine/ Dextrose (Levophed/D5W) 250 ml @ 0.46 mls/hr TITRATE IV Last administered on 09/10/16t 22:26; Admin Dose 14.06 MLS/HR; Start 09/10/16 at 22: 00 DEANNA MONSALVE Sep 11, 2016 07:10
[2016-09-11 07:35] LABS: AADO2 Arterial 109.5 mmHg (7.0-24.0); Arterial Base Excess -12.1 mmol/L (-3.0-3); Arterial COHb 0.3 % (0.0-3.0); Arterial Fraction of Oxyhgb 96.2 % (93.0-99.0); Arterial HCO3 14.8 mmol/L (22.0-26.0); Arterial MetHb 0.5 % (0.0-1.5); Arterial Total Hemglobin 11.6 g/dl (12.0-18.0); MODE NASAL CANNULA
[2016-09-11] MEDS: INSULIN ASPART [NOVOLOG] 3 ML PEN SC SCH ×4 (07:35→20:13)
[2016-09-11] MEDS: DOCUSATE SODIUM 100 MG CAP PO SCH ×2 (08:00→19:34)
[2016-09-11] MEDS: FENTAnyl (DRIP) 1000 mcg/100mL 100 ML IV SCH ×2 (08:41→22:50)
[2016-09-11] MEDS: MIDAZOLAM (DRIP) 50 mg/50 mL 50 ML IV SCH ×2 (08:41→19:46)
[2016-09-11 09:08] LABS: AADO2 Arterial 81.5 mmHg (7.0-24.0); Arterial Base Excess -11.8 mmol/L (-3.0-3); Arterial COHb 0.3 % (0.0-3.0); Arterial Fraction of Oxyhgb 95.2 % (93.0-99.0); Arterial MetHb 0.3 % (0.0-1.5); Arterial Total Hemglobin 11.7 g/dl (12.0-18.0); MODE VENT - AC
--- NOTE | 2016-09-11 09:08 | RADRPT ---
PROCEDURE: XR Chest. CLINICAL INDICATION: Status post intubation TECHNIQUE: Single portable view of the chest was obtained COMPARISON: Yesterday FINDINGS: There is a new endotracheal tube 1.7 cm above the haroon. There is a nasogastric tube extending below the diaphragm. There is a right-sided central line in p lace. The heart is normal in size. There is no focal infiltrate. RPTAT: AA IMPRESSION: New endotracheal tube in appropriate position. Nasogastric tube extending below the diaphragm. .Salas Wise MD, MD Date Time Electronically viewed and signed by .Salas Wise MD, MD on 09/11/2016 09:08 .S/
--- NOTE | 2016-09-11 09:25 | EN ---
Date/Time of Note Date/Time of Note DATE: 09/11/16 TIME: 09:23 Event Note Medicine Medicine Event Note Oral intubation note. Patient appearing tachypneic with developing renal failure metabolic acidosis and profound mental unresponsiveness. It was decided to electively intubate the patient. Patient was given 20 mg of etomidate intravenously and 10 mg of rocuronium intravenously for paralysis. Orally intubated with 7.5 endotracheal tube without any difficulty. Direct visualization of vocal cords was seen. The procedure was well-tolerated. DEANNA MONSALVE Sep 11, 2016 09:25
[2016-09-11 09:34] LABS: EOSINOPHILS # 0.3 10^3/ul (0.0-0.5); LYMPHOCYTES # 1.7 10^3/ul (0.8-2.9); MONOCYTE # 1.4 10^3/ul (0.3-0.9); NEUTROPHIL # 21.4 10^3/ul (1.6-7.5); PLATELET ESTIMATE PLT APPEAR DECREASED
[2016-09-11] MEDS: FAMOTIDINE 20 MG INJ IV SCH (09:57)
[2016-09-11] MEDS: PIPER-TAZO 2.25 GM (PMX) 50 ML IVPB SCH ×4 (09:57→23:44)
[2016-09-11] MEDS ORDERED: SOD CHLORIDE 0.9% 1,000 ML IV SCH (10:30)
[2016-09-11] MEDS ORDERED: VANCOMYCIN IV PER PHARMACY XX SCH (10:30)
[2016-09-11] MEDS ORDERED: ASPIRIN 325 MG TAB PO ONE (10:30)
[2016-09-11] MEDS: PHENYLephrine 160 MG in DEXTROSE 5% 484 ML IV SCH (11:02)
[2016-09-11] MEDS: NORepinephrine 32 MG in DEXTROSE 5% 218 ML IV SCH (11:04)
[2016-09-11] MEDS ORDERED: NA BICARBONATE 8.4% 50 ML SYG IV STA (12:06)
[2016-09-11] MEDS ORDERED: NA BICARBONATE 8.4% 50 ML SYG IV ONE (12:30)
--- NOTE | 2016-09-11 13:57 | PN ---
DATE: 09/11/2016 INFECTIOUS DISEASE PROGRESS NOTE SUBJECTIVE: The patient was intubated this morning. She is on multiple pressors. Family at bedsid e. LABORATORY DATA: WBC today is 34, H 10 and 30.2, platelets 62, neutrophils 63, bands 27, lymphs 5, monos 4. BUN 43, creatinine 3.15. MICROBIOLOGY: Blood culture growing gram-negative rods. Urine culture growing E coli resistant to Ancef and ampicillin. Nares swab negative. DIAGNOSTICS: Chest x-ray revealed no focal infiltrates. INDWELLINGS: Endotracheal tube, NG tube, right chest triple lumen catheter, Alaniz catheter. ANTIMICROBIALS: The patient is on: 1. Vancomycin. 2. Zosyn. PHYSICAL EXAMINATION: GENERAL: This is a well-developed, elderly woman who is intubated, in no distress. HEENT: Head atraumatic, normocephalic. Sclerae anicteric. Buccal mucosa dry. NECK: Supple. CHEST: Rise symmetrical. Breath sounds diminished with bilateral scattered crackles. HEART: S1, S2. ABDOMEN: Soft, abdominal hernia present. Bowel sounds hypoactive. EXTREMITIES: Without cyanosis. ASSESSMENT: 1. Severe sepsis with shock and multisystem organ failure. 2. Escherichia coli urinary tract infection. 3. Gram-negative sergio bacteremia, likely secondary to above. 4. Acute renal failure with metabolic acidosis. 5. Acute respiratory failure, intubated. 6. Acute encephalopathy. 7. Thrombocytopenia. PLAN: The patient is doing poorly, hemodynamically unstable, covered with broad-spectrum antibiotic s. Final cultures pending. Continue present care. Dictated By: CHLOE MONROY VET ASSISTANT for DELANO RODRIGUEZ/ARLENE Conf#: [id number] DID#: [id number]
--- NOTE | 2016-09-11 14:14 | CONS ---
DATE OF ADMISSION: 09/09/2016 DATE OF CONSULTATION: 09/11/2016 REASON FOR CONSULTATION: Positive troponin, shock. REQUESTING PHYSICIAN: Dr. Hendricks from the hospitalist service. HISTORY OF PRESENT ILLNESS: Ms. Juarez is a 75-year-old female with a history of diabetes mellitu s, chronic pain syndrome who initially presented with feelings of generalized weakness, decreased ur ine output, chills, mild flank pain. Upon arrival in the emergency department, temperature 98.8, bl ood pressure 88/49, pulse 68, respiratory rate 22, saturating 97%. The patient's labs revealed sodium 141, potassium 3.7, creatinine 1.58, BUN 23. Lactic acid of 9.1. Troponin negative. White blood cell count 23.4, hemoglobin 12.6, platelet count of 176. ABG reve aling a pH of 7.253, a PaO2 of 514, a pCO2 of 32.2, INR 1.1. UA positive. The patient underwent a renal ultrasound revealing mild right-sided hydronephrosis. No renal calcul i, apparent wall thickening, urinary bladder, possibly due to urinary distention and a chest x-ray t hat revealed calcification of thoracic aorta. No evidence of active cardiopulmonary disease. The p atient's electrocardiogram revealed a rhythm most probably consistent with sinus rhythm with first d egree AV block versus accelerated junctional rhythm at a rate of 89, normal axis, normal intervals w ith lateral biphasic T-wave abnormalities. The patient subsequently required BiPAP respiratory supp ort and emergent intubation and has now been admitted to the ICU where she remains intubated on mult iple pressor support. PAST MEDICAL HISTORY: As above in HPI. MEDICATIONS CURRENTLY IN HOSPITAL: 1. Aspirin 81 mg daily. 2. Sodium bicarbonate 120 mg IV q.8h. 3. Zosyn IV q.6h. 4. Midazolam. 5. Fentanyl. 6. Vancomycin. 7. Levophed pressure support. 8. Albumin IV q.8h. 9. Michael-Synephrine pressor support. 10. Xopenex. 11. Pepcid 20 mg IV daily. 12. Insulin sliding scale. ALLERGIES: NO KNOWN DRUG ALLERGIES. SOCIAL HISTORY: No tobacco, ETOH or illicit drug use. FAMILY HISTORY: No history of sudden cardiac or early CAD. REVIEW OF SYSTEMS: As above in HPI. CONSTITUTIONAL: No current fevers. PULMONARY: Respiratory failure and subsequent intubation. GASTROINTESTINAL: No current nausea or vomiting: GENITOURINARY: Hydroureteronephrosis on renal ultrasound, renal failure. PSYCHIATRIC: No documented psychiatric history. NEUROLOGIC: No documented history of CVA. ENDOCRINE: Diabetes mellitus. PHYSICAL EXAMINATION: VITAL SIGNS: Temperature 98.8, blood pressure 114/45, pulse 90, respiratory rate 20, saturating 98% . GENERAL: The patient is sedated, intubated. NECK: JVP of approximately 9 cm of water. CHEST: Upper airway sounds are rhonchorous sounds. HEART: Regular rate and rhythm. Normal S1, increased S2, 1/6 systolic murmur, nondisplaced PMI. ABDOMEN: Positive bowel sounds, soft. EXTREMITIES: No pitting edema, 1+ pulses bilaterally, posterior tibial. LABORATORY DATA: As above in HPI with most recently from today, sodium 141, potassium 5.0, creatini ne 3.15, BUN of 43. Troponin positive 0.234. Lactic acid of 3.9. INR of 1.38. White blood cell c ount 34, hemoglobin 10, platelet count of 62. ABG revealing a pH of 7.227, a PaO2 of 89, a pCO2 of 36. IMAGING STUDIES: As above in HPI with a chest x-ray from the revealing a new endotracheal tube in appropriate position, nasogastric tube extending below the diaphragm. ECG: As above in HPI, with most recent from today revealing sinus rhythm, rate 94 with normal axis and nonspecific STT abnormalities. IMPRESSION: 1. Positive troponin, assess significance, assess for true acute coronary syndrome. 2. Hypotension, shock state. Rule out cardiac etiology. 3. Abnormal electrocardiogram, assess for acute coronary syndrome. 4. Respiratory failure. 5. Leukocytosis. 6. Anemia. 7. Thrombocytopenia. 8. Renal failure. 9. Bacteremia with gram negative rods. RECOMMENDATIONS: 1. At this time, would maintain the patient on telemetry monitoring to follow rhythm and rate close ly. 2. Continue to trend the patient's cardiac enzymes to assess for any significant ongoing cardiac da mage. 3. Continue the patient's aspirin at this time. Will hold on Lovenox at this time given developmen t of thrombocytopenia. 4. We will wean the patient's pressors as tolerated. 5. Check a 2D echocardiogram to further assess patient's ejection fraction, wall motion and any az[place] or valve abnormalities. 6. Continue the patient's broad spectrum antibiotics and follow up all culture data. 7. Continue the patient's bicarbonate fluids for acidosis. Thank you for allowing me to take part in the care of this patient. I will continue to follow along very closely with you. Further recommendations will be made as the [facility]. Dictated By: ALLISON ALVA/ARLENE Conf#: [id number] DID#: [id number] CC: EMILIANO HENDRICKS MD;*EndCC*
--- NOTE | 2016-09-11 15:04 | PN ---
Date/Time of Note Date/Time of Note DATE: 09/11/16 TIME: 14:51 Assessment/Plan VTE Prophylaxis VTE Prophylaxis Intervention: heparin Lines/Catheters IV Catheter Type (from Nrsg): Central Line Central line still needed: Yes Urinary Cath still in place: Yes Reason Cath still needed: other (indicate) (intubated) Assessment/Plan Assessment/Plan 75 yo female with a past medical history of type II DM, chronic pain who complains of weakness and decreased urinary output for the last several days. 1. Severe Sepsis with septic shock 2/2 Ecoli UTI /Bacteremia 2. Acute renal failure - 2/2 to ATN from sepsis 3. Type II DM - 4. Metabolic acidosis 2/2 #1 5. Acute resp failure now ventilator dependent 6. NSTEMI versus demand ischemia PLAN: * Continue ICU care * Continue Vent mgt / appreciate pulm input * Continue broad spectrum abx / ID consult * Daily aspirin / no BB or Acei for now 2/2 hypotension /Cardiology consult * SSI only for now till on some kind of diet * serial labs and IVF hydration * Appreciate all consults PROPHYLAXIS: Pepcid / SCDS CRITICAL CARE TIME: >35 mins Subjective 24 Hr Interval Summary Free Text/Dictation Patient seen and examined. just got intubated by pulmonary spoke with family at bedside Exam/Review of Systems Vital Signs Vitals Vital Signs Date Time Temp Pulse Resp B/P Pulse Ox O2 Delivery O2 Flow Rate FiO2 09/11/16 12:00 91 09/11/16 12:00 98.8 20 114/45 98 Mechanical Ventilator 09/11/16 10:40 30 09/11/16 08:00 5.0 Intake and Output 09/10/16 09/10/16 09/11/16 15:00 23:00 07:00 Intake Total 881.25 ml 970.75 ml 215.61 ml Output Total 150 ml 125 ml 55 ml Balance 731.25 ml 845.75 ml 160.61 ml Exam Constitutional: No alert, No distress Head: normocephalic Eyes: PERRL Respiratory: diminished breath sounds, No labored breathing, No wheezing Cardiovascular: No murmurs/extra sounds, No regular rate and rhythm (tachy) Gastrointestinal: bowel sounds, other (Large periumbilical hernia), soft Extremities: No edema Neurological: other (dsedated) Results Result Diagram: 09/11/16 0400 09/11/16 0400 Results 24 hrs Laboratory Tests Test 09/10/16 17:54 09/10/16 18:13 09/10/16 18:20 09/10/16 18:30 Arterial Blood HCO3 13.9 L Arterial Blood Base Excess -12.1 L Arterial Blood Oxygen Saturation 99.7 Jarett Test ACCEPTAB Arterial Blood Gas Puncture Site Right Radial Arterial Blood Carboxyhemoglobin 0.3 Arterial Blood Date Drawn 09/10/2016 6:25:03 PM Arterial Blood Methemoglobin 0.5 Arterial Blood pCO2 (Temp correct) 32.2 L Arterial Blood pH (Temp corrected) 7.253 *L Arterial Blood pO2 (Temp corrected) 514.4 H Blood Gas A-a O2 Differential 166.4 H Blood Gas Actual Respiration Rate 25 Blood Gas Critical Value Read Back Barbara CHISHOLM RN Blood Gas IPAP/EPAP Ratio 12 Blood Gas Modality MASK - BIPAP Blood Gas Notified Time 09/10/2016 6:37:12 PM Blood Gas Notified Whom DT Blood Gas Pressure Support 20 Blood Gas Respiration Rate 16.0 Blood Gas Specimen Source Blood arterial Blood Gas Temperature 37.0 FiO2 100.0 Oxyhemoglobin Percent 98.9 Total Hemoglobin 12.7 Lactic Acid Level 5.2 *H Creatine Kinase 28 Creatine Kinase Index 5.5 Creatinine Kinase MB (Mass) 1.53 Troponin I 0.097 Bedside Glucose 148 Test 09/10/16 20:00 09/10/16 20:30 09/10/16 21:23 09/10/16 21:46 Anion Gap 21 H Blood Urea Nitrogen 38 #H Calcium Level 7.4 L Carbon Dioxide Level 19 L Chloride Level 105 Creatinine 2.59 #H Glucose Level 131 Lactic Acid Level 4.6 *H 4.0 H Potassium Level 5.1 Sodium Level 140 Arterial Blood HCO3 15.5 L Arterial Blood Base Excess -9.2 L Arterial Blood Oxygen Saturation 99.6 Jarett Test ACCEPTAB Arterial Blood Gas Puncture Site Left Radial Arterial Blood Carboxyhemoglobin 0.3 Arterial Blood Date Drawn 09/10/2016 8:28:03 PM Arterial Blood Methemoglobin 0.6 Arterial Blood pCO2 (Temp correct) 30.1 L Arterial Blood pH (Temp corrected) 7.329 L Arterial Blood pO2 (Temp corrected) 479.1 H Blood Gas A-a O2 Differential 203.8 H Blood Gas Actual Respiration Rate 21 Blood Gas IPAP/EPAP Ratio 20/8 Blood Gas Modality MASK - BIPAP Blood Gas Notified Time 09/10/2016 8:34:59 PM Blood Gas Notified Whom KM Blood Gas Pressure Support 12 Blood Gas Respiration Rate 16.0 Blood Gas Specimen Source Blood arterial Blood Gas Temperature 37.0 FiO2 100.0 Oxyhemoglobin Percent 98.7 Total Hemoglobin 12.1 Bedside Glucose 114 Test 09/11/16 00:10 09/11/16 02:06 09/11/16 04:00 09/11/16 06:57 Creatine Kinase 65 55 Creatine Kinase Index 2.6 3.8 Creatinine Kinase MB (Mass) 1.69 2.08 Troponin I 0.211 *H 0.234 *H Bedside Glucose 110 Anion Gap 23 H Band Neutrophils % 27.0 H Blood Morphology Comment Blood Urea Nitrogen 43 H Calcium Level 7.3 L Carbon Dioxide Level 18 L Chloride Level 105 Creatinine 3.15 H Eosinophils # 0.3 Eosinophils % 1.0 Glucose Level 107 Hematocrit 30.2 L Hemoglobin 10.0 L Lactic Acid Level 3.9 H Lymphocytes # 1.7 Lymphocytes % 5.0 L Mean Corpuscular Hemoglobin 29.7 Mean Corpuscular Hemoglobin Concent 33.2 Mean Corpuscular Volume 89.5 Mean Platelet Volume 9.2 Monocytes # 1.4 H Monocytes % 4.0 Neutrophils # 21.4 H Neutrophils % 63.0 Platelet Count 62 #L Platelet Estimate PLT APPEAR DECREASED Potassium Level 5.0 Red Blood Count 3.38 L Red Cell Distribution Width 15.0 H Sodium Level 141 White Blood Count 34.0 #H Arterial Blood HCO3 14.8 L Arterial Blood Base Excess -12.1 L Arterial Blood Oxygen Saturation 97.0 Jarett Test N/A Arterial Blood Gas Puncture Site Right Brachial Arterial Blood Carboxyhemoglobin 0.3 Arterial Blood Date Drawn 09/11/2016 7:27:49 AM Arterial Blood Methemoglobin 0.5 Arterial Blood pCO2 (Temp correct) 37.7 Arterial Blood pH (Temp corrected) 7.213 *L Arterial Blood pO2 (Temp corrected) 103.5 H Blood Gas A-a O2 Differential 109.5 H Blood Gas Critical Value Read Back Jeovanny SELF RN Blood Gas Modality NASAL CANNULA Blood Gas Notified Time 09/11/2016 7:35:30 AM Blood Gas Notified Whom TM Blood Gas Specimen Source Blood arterial Blood Gas Temperature 37.0 FiO2 36.0 Oxyhemoglobin Percent 96.2 Total Hemoglobin 11.6 L Test 09/11/16 09:00 09/11/16 11:47 Arterial Blood HCO3 15.0 L Arterial Blood Base Excess -11.8 L Arterial Blood Oxygen Saturation 95.8 Jarett Test N/A Arterial Blood Gas Puncture Site Right Brachial Arterial Blood Carboxyhemoglobin 0.3 Arterial Blood Date Drawn 09/11/2016 9:00:26 AM Arterial Blood Methemoglobin 0.3 Arterial Blood pCO2 (Temp correct) 36.8 Arterial Blood pH (Temp corrected) 7.227 *L Arterial Blood pO2 (Temp corrected) 89.2 Blood Gas A-a O2 Differential 81.5 H Blood Gas Actual Respiration Rate 23 Blood Gas Critical Value Read Back D CLAIR RN Blood Gas Modality VENT - AC Blood Gas Notified Time 09/11/2016 9:08:12 AM Blood Gas Notified Whom TM Blood Gas Respiration Rate 12.0 Blood Gas Specimen Source Blood arterial Blood Gas Temperature 37.0 Blood Gas Tidal Volume 450.0 FiO2 30.0 Oxyhemoglobin Percent 95.2 Total Hemoglobin 11.7 L Bedside Glucose 112 Medications Medications Current Medications Ondansetron HCl (Zofran Inj) 4 mg Q6H PRN IV NAUSEA AND/OR VOMITING Last administered on 09/10/16 23:03; Admin Dose 4 MG; Start 09/09/16 at 20:00 Nitroglycerin (Nitroglycerin (Sl Tab) 0.4 Mg) 1 tab Q5M PRN SL CHEST PAIN; Start 09/09/16 at 20:00 Acetaminophen (Tylenol Liquid) 650 mg Q6H PRN PO PAIN LEVEL 1-3 OR FEVER; Start 09/09/16 at 20:00 Morphine Sulfate (morphine) 2 mg Q4H PRN IV PAIN LEVEL 7-10 Last administered on 09/10/16 23:03; Admin Dose 2 MG; Start 09/09/16 at 20:00 Lorazepam (Ativan) 1 mg Q2H PRN IV ANXIETY Last administered on 09/11/16 04:06 ; Admin Dose 1 MG; Start 09/09/16 at 20:00 Heparin Sodium (Porcine) (Heparin (5000 Units/0.5 ml)) 5,000 unit Q12 SC Last administered on 09/10/16 21:24; Admin Dose 5,000 UNIT; Start 09/09/16 at 21:00 ; Status Future Hold Diagnostic Test (Pha) (Accucheck) 1 ea 02 XX Last administered on 09/10/16 02: 08; Admin Dose 1 EA; Start 09/10/16 at 02:00 Miscellaneous Information 1 ea NOTE XX ; Start 09/09/16 at 20:30 Glucose (Glutose) 15 gm Q15M PRN PO DECREASED GLUCOSE; Start 09/09/16 at 20:30 Glucose (Glutose) 22.5 gm Q15M PRN PO DECREASED GLUCOSE; Start 09/09/16 at 20: 30 Dextrose (D50w Syringe) 25 ml Q15M PRN IV DECREASED GLUCOSE; Start 09/09/16 at 20:30 Dextrose (D50w Syringe) 50 ml Q15M PRN IV DECREASED GLUCOSE; Start 09/09/16 at 20:30 Glucagon (Glucagen) 1 mg Q15M PRN IM DECREASED GLUCOSE; Start 09/09/16 at 20:30 Glucose (Glutose) 15 gm Q15M PRN BUCCAL DECREASED GLUCOSE; Start 09/09/16 at 20 :30 Famotidine 20 mg 20 mg DAILY IV Last administered on 09/11/16 09:57; Admin Dose 20 MG; Start 09/10/16 at 09:00 Vancomycin HCl/ Sodium Chloride (Vancocin/NS) 150 ml @ 75 mls/hr Q36H IVPB Last administered on 09/11/16 05:56; Admin Dose 75 MLS/HR; Start 09/11/16 at 06 :00 Docusate Sodium 100 mg 100 mg Q12H PO ; Start 09/10/16 at 20:00 Phenylephrine HCl 160 mg/Dextrose 500 ml @ 0 mls/hr TITRATE IV Last administered on 09/11/16 11:02; Admin Dose 28.12 MLS/HR; Start 09/10/16 at 19: 30 Norepinephrine 32 mg/Dextrose 250 ml @ 0.46 mls/hr TITRATE IV Last administered on 09/11/16 11:04; Admin Dose 14.06 MLS/HR; Start 09/10/16 at 22: 00 Midazolam HCl 50 ml @ 1 mls/hr TITRATE IV Last administered on 09/11/16 08:41 ; Admin Dose 2 MLS/HR; Start 09/11/16 at 08:30 Fentanyl 100 ml @ 2.5 mls/hr TITRATE IV Last administered on 09/11/16 08:41; Admin Dose 5 MLS/HR; Start 09/11/16 at 08:30 Piperacillin Sod/ Tazobactam Sod (Zosyn 2.25gm/ 50ml (Pmx)) 50 ml @ 200 mls/hr Q6 IVPB Last administered on 09/11/16 09:57; Admin Dose 200 MLS/HR; Start at 09:45 Aspirin 81 mg 81 mg DAILY PO ; Start 09/12/16 at 09:00 Sodium Bicarbonate/ Dextrose (Na Bicarb/D5W) 1,000 ml @ 125 mls/hr Q8H IV ; Start 09/11/16 at 13:15 Procedures Procedures PROCEDURE: XR Chest. CLINICAL INDICATION: Status post intubation TECHNIQUE: Single portable view of the chest was obtained COMPARISON: Yesterday FINDINGS: There is a new endotracheal tube 1.7 cm above the haroon. There is a nasogastric tube extending below the diaphragm. There is a right- sided central line in place. The heart is normal in size. There is no focal infiltrate. RPTAT: AA IMPRESSION: New endotracheal tube in appropriate position. Nasogastric tube extending below the diaphragm. .Salas Wise MD, MD Date Time Electronically viewed and signed by .Salas Wise MD, MD on 09/11/2016 09: 08 .S/ CC: DEANNA MONSALVE BOLATITO M. Sep 11, 2016 15:02
--- NOTE | 2016-09-11 15:57 | RADRPT ---
Vent Rate: 89 bpm RR Interval: 0 msec MA Interval: 0 msec QRS Duration: 68 msec QT Interval: 350 msec QTC Interval: 425 msec P-R-T [place]: 0 - 79 - 80 degrees ? Accelerated Junctional rhythm Nonspecific T wave abnormality Abnormal ECG Electronically Signed By: Everardo Canales [id number]
--- NOTE | 2016-09-11 16:02 | RADRPT ---
Vent Rate: 94 bpm RR Interval: 0 msec TX Interval: 100 msec QRS Duration: 84 msec QT Interval: 364 msec QTC Interval: 455 msec P-R-T [place]: 29 - 74 - 72 degrees Sinus rhythm with short TX Otherwise normal ECG Electronically Signed By: Everardo Canales [id number]
[2016-09-11] MEDS: SODIUM BICARBONATE (IV ADD) 100 MEQ in DEXTROSE 5% 900 ML IV SCH ×2 (16:05→20:10)
--- NOTE | 2016-09-11 16:48 | RADRPT ---
Echocardiogram Report Patient Name: DARIUS WHITE Gender: Female Date: 1940 Study Date: 11-Sep-2016 Paralegal Legal Secretary: Gabe Merchant RDCS Location: [facility] Ref. Physician: EMILIANO HENDRICKS Quality: Adequate Procedures: Transthoracic echocardiogram with complete 2D, M-Mode, and doppler examination. Indications: Acute resp distress. 2D/M Mode Doppler Measurement Value Normal Ranges Measurement Value Normal Ranges LVIDd 2D 4.7 3.5 - 5.6 cm AV Peak Sriram 1.5 m/sec LVIDs 2D 3.0 2.1 - 4.1 cm AV Peak PG 9.1 mmHg LVPWd 2D 0.9 0.6 - 1.1 cm LVOT Peak Sriram 0.9 m/sec IVSd 2D 0.8 0.6 - 1.1 cm LVOT Peak PG 3.2 mmHg AoR Diam 2D 2.6 2.0 - 3.7 cm MV E Peak Sriram 0.9 m/sec EDV 2D 102.8 cm3 MV A Peak Sriram 0.6 m/sec ESV 2D 27.9 cm3 MV E/A 1.5 LA Dimen 2D 2.8 2.3 - 4.0 cm MV Decel Time 147 msec MV Decel Charles 6 MV E/A 1.5 TR Peak Sriram 3.5 m/sec TR Peak PG 50.0 mmHg RVSP 65.0 mmHg Findings Left Ventricle: Normal left ventricular cavity size. Normal left ventricular wall thickness. Mild left ventricular systolic dysfunction. Ejection fraction is visually estimated at 4550 %. These segments of the LV are hypokinetic apical septum and mid septum segment. Right Ventricle: Normal right ventricular size. Normal right ventricular systolic function. Left Atrium: The left atrium is normal in size. Right Atrium: The right atrium is normal in size. Mitral Valve: Mitral valve leaflets appear mildly thickened. Mild mitral annular calcification. Mild mitral valve regurgitation. Aortic Valve: No significant aortic stenosis or insufficiency. Aortic cusps appear mildly calcified. Tricuspid Valve: Estimated peak PA systolic pressure 65 mmHg. There is mild to moderate tricuspid regurgitation. Pulmonic Valve: Normal pulmonic valve appearance. Pericardium: Normal pericardium with no significant pericardial effusion. Aorta: Normal aortic root. IVC: Dilated inferior vena cava without respiratory collapse, however, patient on ventilator. Conclusions 1.Normal left ventricular cavity size. Normal left ventricular wall thickness. Mild left ventricular systolic dysfunction. Ejection fraction is visually estimated at 45-50 %. These segments of the LV are hypokinetic apical septum and mid septum segment. 2.Mitral valve leaflets appear mildly thickened. Mild mitral annular calcification. Mild mitral valve regurgitation. 3.Estimated peak PA systolic pressure 65 mmHg. 4.There is mild to moderate tricuspid regurgitation. Electronically Signed By: Colin Vinson 11-Sep-2016 16:47:20 -0800 Patient Name: DARIUS WHITE Study Date: 11-Sep-2016 [id number]
[2016-09-11 19:35] LABS: CK-MB 3.14 ng/ml (0.0-2.4)
[2016-09-11 19:38] LABS: TROPONIN-I 0.509 ng/ml (0.00-0.12)
[2016-09-12] VITALS (106 sets, daily range): BP systolic 68–138; BP diastolic 38–77; PULSE 79–150; RESP 12–23
[2016-09-12] MEDS: INSULIN ASPART [NOVOLOG] 3 ML PEN SC SCH ×6 (01:00→20:44)
[2016-09-12] MEDS: SODIUM BICARBONATE (IV ADD) 100 MEQ in DEXTROSE 5% 900 ML IV SCH ×3 (01:06→19:10)
[2016-09-12 01:45] LABS: TROPONIN-I 0.47 ng/ml (0.00-0.12)
[2016-09-12 05:40] LABS: EOSINOPHILS # 0.2 10^3/ul (0.0-0.5); EOSINOPHILS % 1.1 % (0.0-7.0); HEMATOCRIT 29.1 % (37.0-47.0); HEMOGLOBIN 9.9 g/dl (12.0-16.0); LYMPHOCYTES # 1.2 10^3/ul (0.8-2.9); LYMPHOCYTES % 6.8 % (15.0-51.0); MEAN CORPUSCULAR HEMOGLOBIN 29.7 pg (29.0-33.0); MEAN CORPUSCULAR VOLUME 87.4 fl (82.0-101.0); MEAN PLATELET VOLUME 11.1 fl (7.4-10.4); MONOCYTE # 0.3 10^3/ul (0.3-0.9); MONOCYTES % 1.4 % (0.0-11.0); NEUTROPHIL # 16.4 10^3/ul (1.6-7.5); NEUTROPHILS % 90.7 % (39.0-77.0); RED BLOOD COUNT 3.33 10^6/ul (4.20-5.40); RED CELL DISTRIBUTION WIDTH 15.1 % (11.5-14.5); UNCORRECTED WBC 18.1 10^3/ul (4.8-10.8); WHITE BLOOD COUNT 18.1 10^3/ul (4.8-10.8)
[2016-09-12 05:58] LABS: CK-MB 3.94 ng/ml (0.0-2.4)
[2016-09-12] MEDS: PIPER-TAZO 2.25 GM (PMX) 50 ML IVPB SCH ×3 (06:09→18:28)
[2016-09-12 06:22] LABS: TROPONIN-I 0.428 ng/ml (0.00-0.12)
[2016-09-12 06:27] LABS: CONDITION 1; LH ANALYZER COMMENTS 1; SUSPECT 1
[2016-09-12 06:29] LABS: PLATELET COUNT 15 10^3/UL (140-440)
[2016-09-12 07:01] LABS: POTASSIUM 4.7 mmol/L (3.5-5.1)
[2016-09-12 07:04] LABS: CALCIUM 6.6 mg/dl (8.4-10.2)
[2016-09-12 07:20] LABS: CREATININE 3.61 mg/dl (0.44-1.00)
[2016-09-12 07:33] LABS: CHOLESTEROL 58 mg/dl (100-200); TRIGLYCERIDES 307 mg/dl (0-149)
[2016-09-12 07:34] LABS: CHOL/HDL RATIO 4.4 RATIO; HDL CHOLESTEROL 13 mg/dl (33-92)
[2016-09-12 08:02] LABS: AADO2 Arterial 43.7 mmHg (7.0-24.0); Allen Test ACCEPTAB; Arterial Base Excess -0.1 mmol/L (-3.0-3); Arterial COHb 0.3 % (0.0-3.0); Arterial Fraction of Oxyhgb 96.8 % (93.0-99.0); Arterial HCO3 25.7 mmol/L (22.0-26.0); Arterial MetHb 0.5 % (0.0-1.5); Arterial Total Hemglobin 9.6 g/dl (12.0-18.0); Blood Gas Low PEEP Setting 0 cmH2O; MODE VENT - AC
--- NOTE | 2016-09-12 08:14 | RADRPT ---
PROCEDURE: CHEST 1VW CLINICAL INDICATION: Status post intubation TECHNIQUE: Single frontal view of the chest was obtained COMPARISON: 09/11/2016 FINDINGS: Stable positioning of right internal jugular central venous catheter, endotracheal tube, nasogastric tube. The cardiac size is normal. Aortic vascular calcifications are demonstrated. There is no pulmonary vascular congestion. The lungs are clear. No consolidation, effusion, or pneumothorax. Mild degenerative changes of the visualized osseous structures are visualized. IMPRESSION: 1. No acute cardiopulmonary process. 2. Atherosclerosis. 3. Stable lines and tubes. RPTAT:PP .Darren Olmos MD, Date Time Electronically viewed and signed by .Darren Olmos MD, MD on 09/12/2016 08:14 .V/
[2016-09-12] MEDS: ASPIRIN 81 MG TAB PO SCH (09:00)
[2016-09-12 09:02] LABS: INR 1.67; PROTIME 19.8 Sec (12.2-14.2); PT RATIO 1.5
[2016-09-12 09:03] LABS: PARTIAL THROMBOPLASTIN TIME 55.8 Sec (25.0-35.0)
[2016-09-12 09:06] LABS: PLATELET COUNT 16 10^3/UL (140-415)
--- NOTE | 2016-09-12 09:09 | PN ---
Date/Time of Note Date/Time of Note DATE: 09/12/16 TIME: 09:08 Assessment/Plan VTE Prophylaxis VTE Prophylaxis Intervention: SCD's Lines/Catheters IV Catheter Type (from Nrs): Central Line Central line still needed: Yes Urinary Cath still in place: Yes Reason Cath still needed: other (indicate) Assessment/Plan Assessment/Plan 75 yo female with a past medical history of type II DM, chronic pain who complains of weakness and decreased urinary output for the last several days. 1. Severe Sepsis with septic shock 2/2 Ecoli UTI /Bacteremia 2. Acute renal failure - 2/2 to ATN from sepsis 3. Type II DM - 4. Metabolic / Lactic acidosis 2/2 #1 5. Acute resp failure now ventilator dependent 6. NSTEMI versus demand ischemia 7. ?Impending DIC PLAN: * Continue ICU care * Continue Vent mgt / appreciate pulm input * Continue broad spectrum abx / ID consult * Daily aspirin / no BB or Acei for now 2/2 hypotension /Cardiology consult * SSI only for now till on some kind of diet * serial labs and IVF hydration * Appreciate all consults PROPHYLAXIS: Pepcid / SCDS CRITICAL CARE TIME: >35 mins Exam/Review of Systems Vital Signs Vitals Vital Signs Date Time Temp Pulse Resp B/P Pulse Ox O2 Delivery O2 Flow Rate FiO2 09/12/16 06:45 93 13 112/48 99 09/12/16 06:30 Mechanical Ventilator 09/12/16 05:09 30 09/12/16 04:00 98.9 09/11/16 08:00 5.0 Intake and Output 09/11/16 09/11/16 09/12/16 14:59 22:59 06:59 Intake Total 734.47 ml 1127.19 ml 1294.21 ml Output Total 15 ml 135 ml 140 ml Balance 719.47 ml 992.19 ml 1154.21 ml Results Result Diagram: 09/12/16 0500 09/12/16 0500 Results 24 hrs Laboratory Tests Test 09/11/16 11:47 09/11/16 19:00 09/11/16 20:12 09/12/16 00:39 Bedside Glucose 112 91 Creatine Kinase 50 57 Creatine Kinase Index 6.3 5.3 Creatinine Kinase MB (Mass) 3.14 H 3.00 H Troponin I 0.509 *H 0.470 *H Test 09/12/16 01:14 09/12/16 05:00 09/12/16 05:16 09/12/16 07:00 Bedside Glucose 106 130 Anion Gap 19 H Basophils # 0.0 Basophils % 0.0 Blood Morphology Comment Blood Urea Nitrogen 54 H Calcium Level 6.6 L Carbon Dioxide Level 28 # Chloride Level 97 Cholesterol Level 58 L Cholesterol/HDL Ratio 4.4 Creatine Kinase 89 Creatine Kinase Index 4.4 Creatinine 3.61 H Creatinine Kinase MB (Mass) 3.94 H Eosinophils # 0.2 Eosinophils % 1.1 Glucose Level 121 HDL Cholesterol 13 L Hematocrit 29.1 L Hemoglobin 9.9 L LDL Cholesterol, Calculated Pending Lactic Acid Level 2.7 H Lymphocytes # 1.2 Lymphocytes % 6.8 L Mean Corpuscular Hemoglobin 29.7 Mean Corpuscular Hemoglobin Concent 34.0 Mean Corpuscular Volume 87.4 Mean Platelet Volume 11.1 #H Monocytes # 0.3 Monocytes % 1.4 Neutrophils # 16.4 H Neutrophils % 90.7 H Nucleated Red Blood Cells # 0.0 Nucleated Red Blood Cells % 0.0 Platelet Count 15 #*L Potassium Level 4.7 Random Vancomycin Level 14.9 Red Blood Count 3.33 L Red Cell Distribution Width 15.1 H Sodium Level 139 Triglycerides Level 307 H Troponin I 0.428 *H White Blood Count 18.1 #H Arterial Blood HCO3 25.7 Arterial Blood Base Excess -0.1 Arterial Blood Oxygen Saturation 97.6 Jarett Test ACCEPTAB Arterial Blood Gas Puncture Site Left Radial Arterial Blood Carboxyhemoglobin 0.3 Arterial Blood Date Drawn 09/12/2016 7:33:10 AM Arterial Blood Methemoglobin 0.5 Arterial Blood pCO2 (Temp correct) 47.3 H Arterial Blood pH (Temp corrected) 7.353 Arterial Blood pO2 (Temp corrected) 114.6 H Blood Gas A-a O2 Differential 43.7 H Blood Gas Actual Respiration Rate 13 Blood Gas Low PEEP Setting 0 Blood Gas Modality VENT - AC Blood Gas Notified Time 09/12/2016 8:01:59 AM Blood Gas Notified Whom JLD Blood Gas Respiration Rate 12.0 Blood Gas Specimen Source Blood arterial Blood Gas Temperature 37.0 Blood Gas Tidal Volume 450.0 FiO2 30.0 Oxyhemoglobin Percent 96.8 Total Hemoglobin 9.6 L Test 09/12/16 08:26 Activated Partial Thromboplast Time 55.8 H D-Dimer Pending Fibrinogen 581.0 H INR International Normalized Ratio 1.67 Plasma Fibrin Degradation Products Pending Platelet Count 16 *L Prothrombin Time 19.8 H Prothrombin Time Ratio 1.5 Thrombin Time Pending Medications Medications Current Medications Ondansetron HCl (Zofran Inj) 4 mg Q6H PRN IV NAUSEA AND/OR VOMITING Last administered on 09/10/16 23:03; Admin Dose 4 MG; Start 09/09/16 at 20:00 Nitroglycerin (Nitroglycerin (Sl Tab) 0.4 Mg) 1 tab Q5M PRN SL CHEST PAIN; Start 09/09/16 at 20:00 Acetaminophen (Tylenol Liquid) 650 mg Q6H PRN PO PAIN LEVEL 1-3 OR FEVER; Start 09/09/16 at 20:00 Morphine Sulfate (morphine) 2 mg Q4H PRN IV PAIN LEVEL 7-10 Last administered on 09/10/16 23:03; Admin Dose 2 MG; Start 09/09/16 at 20:00 Lorazepam (Ativan) 1 mg Q2H PRN IV ANXIETY Last administered on 09/11/16 04:06 ; Admin Dose 1 MG; Start 09/09/16 at 20:00 Heparin Sodium (Porcine) (Heparin (5000 Units/0.5 ml)) 5,000 unit Q12 SC Last administered on 09/10/16 21:24; Admin Dose 5,000 UNIT; Start 09/09/16 at 21:00 ; Status Future Hold Glucose (Glutose) 15 gm Q15M PRN PO DECREASED GLUCOSE; Start 09/09/16 at 20:30 Glucose (Glutose) 22.5 gm Q15M PRN PO DECREASED GLUCOSE; Start 09/09/16 at 20: 30 Dextrose (D50w Syringe) 25 ml Q15M PRN IV DECREASED GLUCOSE; Start 09/09/16 at 20:30 Dextrose (D50w Syringe) 50 ml Q15M PRN IV DECREASED GLUCOSE; Start 09/09/16 at 20:30 Glucagon (Glucagen) 1 mg Q15M PRN IM DECREASED GLUCOSE; Start 09/09/16 at 20:30 Glucose (Glutose) 15 gm Q15M PRN BUCCAL DECREASED GLUCOSE; Start 09/09/16 at 20 :30 Famotidine 20 mg 20 mg DAILY IV Last administered on 09/11/16 09:57; Admin Dose 20 MG; Start 09/10/16 at 09:00 Vancomycin HCl/ Sodium Chloride (Vancocin/NS) 150 ml @ 75 mls/hr Q36H IVPB Last administered on 09/11/16 05:56; Admin Dose 75 MLS/HR; Start 09/11/16 at 06 :00; Status Future Hold Docusate Sodium 100 mg 100 mg Q12H PO ; Start 09/10/16 at 20:00 Phenylephrine HCl 160 mg/Dextrose 500 ml @ 0 mls/hr TITRATE IV Last administered on 09/11/16 11:02; Admin Dose 28.12 MLS/HR; Start 09/10/16 at 19: 30 Norepinephrine 32 mg/Dextrose 250 ml @ 0.46 mls/hr TITRATE IV Last administered on 09/11/16 11:04; Admin Dose 14.06 MLS/HR; Start 09/10/16 at 22: 00 Midazolam HCl 50 ml @ 1 mls/hr TITRATE IV Last administered on 09/11/16 19:46 ; Admin Dose 2 MLS/HR; Start 09/11/16 at 08:30 Fentanyl 100 ml @ 2.5 mls/hr TITRATE IV Last administered on 09/11/16 22:50; Admin Dose 5 MLS/HR; Start 09/11/16 at 08:30 Piperacillin Sod/ Tazobactam Sod (Zosyn 2.25gm/ 50ml (Pmx)) 50 ml @ 200 mls/hr Q6 IVPB Last administered on 09/12/16 06:09; Admin Dose 200 MLS/HR; Start at 09:45 Aspirin 81 mg 81 mg DAILY PO ; Start 09/12/16 at 09:00 Sodium Bicarbonate/ Dextrose (Na Bicarb/D5W) 1,000 ml @ 125 mls/hr Q8H IV Last administered on 09/12/16 01:06; Admin Dose 125 MLS/HR; Start 09/11/16 at 13:15 Insulin Aspart (Novolog Insulin Pen) NOVOLOG *MILD* ALGORI... Q4 SC ; Start at 21:00 Procedures Procedures PROCEDURE: CHEST 1VW CLINICAL INDICATION: Status post intubation TECHNIQUE: Single frontal view of the chest was obtained COMPARISON: 09/11/2016 FINDINGS: Stable positioning of right internal jugular central venous catheter, endotracheal tube, nasogastric tube. The cardiac size is normal. Aortic vascular calcifications are demonstrated. There is no pulmonary vascular congestion. The lungs are clear. No consolidation, effusion, or pneumothorax. Mild degenerative changes of the visualized osseous structures are visualized. IMPRESSION: 1. No acute cardiopulmonary process. 2. Atherosclerosis. 3. Stable lines and tubes. RPTAT:PP .Darren Olmos MD, MD Date Time Electronically viewed and signed by .Darren Olmos MD, MD on 09/12/2016 08:14 .V/ CC: DEANNA MONSALVE BOLATITO M. Sep 12, 2016 09:09
[2016-09-12 09:13] LABS: ADD SCAN DIFF NO
[2016-09-12 09:27] LABS: ABNORMAL IP MESSAGE 1; HEMATOCRIT 28.8 % (37.0-47.0); HEMOGLOBIN 9.7 g/dl (12.0-16.0); MEAN CORPUSCULAR HEMOGLOBIN 29.6 pg (29.0-33.0); MEAN CORPUSCULAR HGB CONC 33.7 g/dl (32.0-37.0); MEAN CORPUSCULAR VOLUME 87.8 fl (82.0-101.0); RED BLOOD COUNT 3.28 10^6/ul (4.20-5.40); RED CELL DISTRIBUTION WIDTH 15.3 % (11.5-14.5); WHITE BLOOD COUNT 16.8 10^3/ul (4.8-10.8)
[2016-09-12 09:35] LABS: PLATELET COUNT 16 10^3/UL (140-415)
--- NOTE | 2016-09-12 09:35 | CONS ---
Date/Time of Note Date/Time of Note DATE: 09/12/16 TIME: 09:31 Assessment/Plan Assessment/Plan Additional Assessment/Plan Ventilator settings; assist control of 12, tidal volume 450, PEEP of 5, 30% FiO2. Chest x-ray was reviewed from today which is showing no acute infiltrates endotracheal tube is at an adequate level. Assessment and recommendations; 1. Patient admitted with severe sepsis due to UTI due to gram-negative bacteremia. 2. Severe shock. 3. Acute renal failure. Slight improvement in serum creatinine today. 4. Patient currently on high-dose pressor support. 5. Possibilities decerebrate posturing. 6. Severe thrombocytopenia. From likely underlying sepsis possibly DIC as well. Continue current supportive care. Stat CBC has been ordered if the platelet count is below 20,000 I would recommend transfusing 2 units of platelets. Add Keppra IV. Prognosis remains extremely guarded. I did have a detailed discussion the patient's son at bedside and answered all his questions. About 35 minutes of critical care time was spent evaluating the patient Consultation Date/Type/Reason Admit Date/Time Sep 09, 2016 at 19:47 Initial Consult Date 09/11/16 Type of Consultation: Pulmonary/critical care 24 HR Interval Summary Free Text/Dictation Patient's condition remains extremely critical. Requiring full ventilator support. On high-dose pressor support for blood pressure maintenance. General examination; elderly woman, orally intubated. Sedated. Exam/Review of Systems Vital Signs Vitals Vital Signs Date Time Temp Pulse Resp B/P Pulse Ox O2 Delivery O2 Flow Rate FiO2 09/12/16 07:40 91 14 99 30 09/12/16 06:45 112/48 09/12/16 06:30 Mechanical Ventilator 09/12/16 04:00 98.9 09/11/16 08:00 5.0 Intake and Output 09/11/16 09/11/16 09/12/16 15:00 23:00 07:00 Intake Total 713.34 ml 1255.94 ml 1135.03 ml Output Total 20 ml 145 ml 125 ml Balance 693.34 ml 1110.94 ml 1010.03 ml Exam HEENT examination; supple neck, no JVD. No lymphadenopathy. Pupils are small bilaterally. Orally intubated. No thyromegaly. No lymphadenopathy. Chest examination; clear to auscultation bilaterally. S1-S2 audible, no murmurs. Abdomen examination; there is a large reducible ventral hernia. Bowel sounds audible. No organomegaly felt. Extremity examination; no peripheral edema. HORSER UP examination; patient is sedated. Exhibiting what appears to be mild decerebrate posturing. Results Result Diagram: 09/12/16 0826 09/12/16 0500 Results 24 hrs Laboratory Tests Test 09/11/16 11:47 09/11/16 19:00 09/11/16 20:12 09/12/16 00:39 Bedside Glucose 112 91 Creatine Kinase 50 57 Creatine Kinase Index 6.3 5.3 Creatinine Kinase MB (Mass) 3.14 H 3.00 H Troponin I 0.509 *H 0.470 *H Test 09/12/16 01:14 09/12/16 05:00 09/12/16 05:16 09/12/16 07:00 Bedside Glucose 106 130 Anion Gap 19 H Basophils # 0.0 Basophils % 0.0 Blood Morphology Comment Blood Urea Nitrogen 54 H Calcium Level 6.6 L Carbon Dioxide Level 28 # Chloride Level 97 Cholesterol Level 58 L Cholesterol/HDL Ratio 4.4 Creatine Kinase 89 Creatine Kinase Index 4.4 Creatinine 3.61 H Creatinine Kinase MB (Mass) 3.94 H Eosinophils # 0.2 Eosinophils % 1.1 Glucose Level 121 HDL Cholesterol 13 L Hematocrit 29.1 L Hemoglobin 9.9 L LDL Cholesterol, Calculated Pending Lactic Acid Level 2.7 H Lymphocytes # 1.2 Lymphocytes % 6.8 L Mean Corpuscular Hemoglobin 29.7 Mean Corpuscular Hemoglobin Concent 34.0 Mean Corpuscular Volume 87.4 Mean Platelet Volume 11.1 #H Monocytes # 0.3 Monocytes % 1.4 Neutrophils # 16.4 H Neutrophils % 90.7 H Nucleated Red Blood Cells # 0.0 Nucleated Red Blood Cells % 0.0 Platelet Count 15 #*L Potassium Level 4.7 Random Vancomycin Level 14.9 Red Blood Count 3.33 L Red Cell Distribution Width 15.1 H Sodium Level 139 Triglycerides Level 307 H Troponin I 0.428 *H White Blood Count 18.1 #H Arterial Blood HCO3 25.7 Arterial Blood Base Excess -0.1 Arterial Blood Oxygen Saturation 97.6 Jarett Test ACCEPTAB Arterial Blood Gas Puncture Site Left Radial Arterial Blood Carboxyhemoglobin 0.3 Arterial Blood Date Drawn 09/12/2016 7:33:10 AM Arterial Blood Methemoglobin 0.5 Arterial Blood pCO2 (Temp correct) 47.3 H Arterial Blood pH (Temp corrected) 7.353 Arterial Blood pO2 (Temp corrected) 114.6 H Blood Gas A-a O2 Differential 43.7 H Blood Gas Actual Respiration Rate 13 Blood Gas Low PEEP Setting 0 Blood Gas Modality VENT - AC Blood Gas Notified Time 09/12/2016 8:01:59 AM Blood Gas Notified Whom JLD Blood Gas Respiration Rate 12.0 Blood Gas Specimen Source Blood arterial Blood Gas Temperature 37.0 Blood Gas Tidal Volume 450.0 FiO2 30.0 Oxyhemoglobin Percent 96.8 Total Hemoglobin 9.6 L Test 09/12/16 08:26 Activated Partial Thromboplast Time 55.8 H D-Dimer Pending Fibrinogen 581.0 H INR International Normalized Ratio 1.67 Plasma Fibrin Degradation Products Pending Platelet Count 16 *L Prothrombin Time 19.8 H Prothrombin Time Ratio 1.5 Thrombin Time Pending Medications Medications Current Medications Ondansetron HCl (Zofran Inj) 4 mg Q6H PRN IV NAUSEA AND/OR VOMITING Last administered on 09/10/16 23:03; Admin Dose 4 MG; Start 09/09/16 at 20:00 Nitroglycerin (Nitroglycerin (Sl Tab) 0.4 Mg) 1 tab Q5M PRN SL CHEST PAIN; Start 09/09/16 at 20:00 Acetaminophen (Tylenol Liquid) 650 mg Q6H PRN PO PAIN LEVEL 1-3 OR FEVER; Start 09/09/16 at 20:00 Morphine Sulfate (morphine) 2 mg Q4H PRN IV PAIN LEVEL 7-10 Last administered on 09/10/16 23:03; Admin Dose 2 MG; Start 09/09/16 at 20:00 Lorazepam (Ativan) 1 mg Q2H PRN IV ANXIETY Last administered on 09/11/16 04:06 ; Admin Dose 1 MG; Start 09/09/16 at 20:00 Glucose (Glutose) 15 gm Q15M PRN PO DECREASED GLUCOSE; Start 09/09/16 at 20:30 Glucose (Glutose) 22.5 gm Q15M PRN PO DECREASED GLUCOSE; Start 09/09/16 at 20: 30 Dextrose (D50w Syringe) 25 ml Q15M PRN IV DECREASED GLUCOSE; Start 09/09/16 at 20:30 Dextrose (D50w Syringe) 50 ml Q15M PRN IV DECREASED GLUCOSE; Start 09/09/16 at 20:30 Glucagon (Glucagen) 1 mg Q15M PRN IM DECREASED GLUCOSE; Start 09/09/16 at 20:30 Glucose (Glutose) 15 gm Q15M PRN BUCCAL DECREASED GLUCOSE; Start 09/09/16 at 20 :30 Famotidine 20 mg 20 mg DAILY IV Last administered on 09/11/16 09:57; Admin Dose 20 MG; Start 09/10/16 at 09:00 Vancomycin HCl/ Sodium Chloride (Vancocin/NS) 150 ml @ 75 mls/hr Q36H IVPB Last administered on 09/11/16 05:56; Admin Dose 75 MLS/HR; Start 09/11/16 at 06 :00; Status Future Hold Docusate Sodium 100 mg 100 mg Q12H PO ; Start 09/10/16 at 20:00 Phenylephrine HCl 160 mg/Dextrose 500 ml @ 0 mls/hr TITRATE IV Last administered on 09/11/16 11:02; Admin Dose 28.12 MLS/HR; Start 09/10/16 at 19: 30 Norepinephrine 32 mg/Dextrose 250 ml @ 0.46 mls/hr TITRATE IV Last administered on 09/11/16 11:04; Admin Dose 14.06 MLS/HR; Start 09/10/16 at 22: 00 Midazolam HCl 50 ml @ 1 mls/hr TITRATE IV Last administered on 09/11/16 19:46 ; Admin Dose 2 MLS/HR; Start 09/11/16 at 08:30 Fentanyl 100 ml @ 2.5 mls/hr TITRATE IV Last administered on 09/11/16 22:50; Admin Dose 5 MLS/HR; Start 09/11/16 at 08:30 Piperacillin Sod/ Tazobactam Sod (Zosyn 2.25gm/ 50ml (Pmx)) 50 ml @ 200 mls/hr Q6 IVPB Last administered on 09/12/16 06:09; Admin Dose 200 MLS/HR; Start at 09:45 Aspirin 81 mg 81 mg DAILY PO ; Start 09/12/16 at 09:00 Sodium Bicarbonate/ Dextrose (Na Bicarb/D5W) 1,000 ml @ 125 mls/hr Q8H IV Last administered on 09/12/16t 01:06; Admin Dose 125 MLS/HR; Start 09/11/16 at 13:15 Insulin Aspart (Novolog Insulin Pen) NOVOLOG *MILD* ALGORI... Q4 SC ; Start at 21:00 DEANNA MONSALVE Sep 12, 2016 09:35
[2016-09-12] MEDS: DOCUSATE SODIUM 100 MG CAP PO SCH ×2 (10:03→20:38)
[2016-09-12] MEDS: FAMOTIDINE 20 MG INJ IV SCH (10:03)
[2016-09-12 10:06] LABS: D-DIMER > 10000.00 ng/ml (<460)
[2016-09-12] MEDS: NORepinephrine 32 MG in DEXTROSE 5% 218 ML IV SCH (10:16)
--- NOTE | 2016-09-12 11:01 | CONS ---
Date/Time of Note Date/Time of Note DATE: 09/12/16 TIME: 10:53 Assessment/Plan Assessment/Plan Chief Complaint/Hosp Course IMPRESSION: 1. Positive troponin, assess significance, assess for true acute coronary syndrome.-mild uptrend in setting of renal failure 2. Hypotension, shock state. Rule out cardiac etiology-EF 45-50 by echo this admit 3. Abnormal electrocardiogram, assess for acute coronary syndrome. 4. Respiratory failure. 5. Leukocytosis. 6. Anemia. 7. Thrombocytopenia. 8. Renal failure. 9. Bacteremia with gram negative rods. REcc: -Tele -wean pressors as tolerated -continue abx's and f/u ca data -ASA as tolerated only given low platelets -Consider renal consult for acute on chronic renal failure -Follow volume status closely Problems: Consultation Date/Type/Reason Admit Date/Time Sep 09, 2016 at 19:47 Initial Consult Date 09/11/16 Type of Consultation: Cardiology Reason for Consultation Positive troponin Referring Provider: JOAN MALONEY MD Exam/Review of Systems Vital Signs Vitals Vital Signs Date Time Temp Pulse Resp B/P Pulse Ox O2 Delivery O2 Flow Rate FiO2 09/12/16 09:53 94 16 100 30 09/12/16 06:45 112/48 09/12/16 06:30 Mechanical Ventilator 09/12/16 04:00 98.9 09/11/16 08:00 5.0 Intake and Output 09/11/16 09/11/16 09/12/16 15:00 23:00 07:00 Intake Total 713.34 ml 1255.94 ml 1135.03 ml Output Total 20 ml 145 ml 125 ml Balance 693.34 ml 1110.94 ml 1010.03 ml Exam Review of Systems: CONSTITUTIONAL: No fevers, chills. PULMONARY: intubated CARDIOVASCULAR: No chest pain/palpitations GASTROINTESTINAL: No nausea/vomiting. GENITOURINARY: No hematuria/dysuria. MUSCULOSKELETAL: No myagias/arthalgias. PSYCHIATRIC: The patient denies depression. NEUROLOGIC: non-responsive Constitutional: alert, oriented Psych: no complaints Head: normocephalic ENMT: mucosa pink and moist Neck: jvd (9 cm water), supple Respiratory: diminished breath sounds Cardiovascular: regular rate and rhythm Gastrointestinal: non-tender Musculoskeletal: muscle tone (normal) Extremities: edema (none) Neurological: unresponsive Results Result Diagram: 09/12/16 0826 09/12/16 0500 Results 24 hrs Laboratory Tests Test 09/11/16 11:47 09/11/16 19:00 09/11/16 20:12 09/12/16 00:39 Bedside Glucose 112 91 Creatine Kinase 50 57 Creatine Kinase Index 6.3 5.3 Creatinine Kinase MB (Mass) 3.14 H 3.00 H Troponin I 0.509 *H 0.470 *H Test 09/12/16 01:14 09/12/16 05:00 09/12/16 05:16 09/12/16 07:00 Bedside Glucose 106 130 Anion Gap 19 H Basophils # 0.0 Basophils % 0.0 Blood Morphology Comment Blood Urea Nitrogen 54 H Calcium Level 6.6 L Carbon Dioxide Level 28 # Chloride Level 97 Cholesterol Level 58 L Cholesterol/HDL Ratio 4.4 Creatine Kinase 89 Creatine Kinase Index 4.4 Creatinine 3.61 H Creatinine Kinase MB (Mass) 3.94 H Eosinophils # 0.2 Eosinophils % 1.1 Glucose Level 121 HDL Cholesterol 13 L Hematocrit 29.1 L Hemoglobin 9.9 L LDL Cholesterol, Calculated Pending Lactic Acid Level 2.7 H Lymphocytes # 1.2 Lymphocytes % 6.8 L Mean Corpuscular Hemoglobin 29.7 Mean Corpuscular Hemoglobin Concent 34.0 Mean Corpuscular Volume 87.4 Mean Platelet Volume 11.1 #H Monocytes # 0.3 Monocytes % 1.4 Neutrophils # 16.4 H Neutrophils % 90.7 H Nucleated Red Blood Cells # 0.0 Nucleated Red Blood Cells % 0.0 Platelet Count 15 #*L Potassium Level 4.7 Random Vancomycin Level 14.9 Red Blood Count 3.33 L Red Cell Distribution Width 15.1 H Sodium Level 139 Triglycerides Level 307 H Troponin I 0.428 *H White Blood Count 18.1 #H Arterial Blood HCO3 25.7 Arterial Blood Base Excess -0.1 Arterial Blood Oxygen Saturation 97.6 Jarett Test ACCEPTAB Arterial Blood Gas Puncture Site Left Radial Arterial Blood Carboxyhemoglobin 0.3 Arterial Blood Date Drawn 09/12/2016 7:33:10 AM Arterial Blood Methemoglobin 0.5 Arterial Blood pCO2 (Temp correct) 47.3 H Arterial Blood pH (Temp corrected) 7.353 Arterial Blood pO2 (Temp corrected) 114.6 H Blood Gas A-a O2 Differential 43.7 H Blood Gas Actual Respiration Rate 13 Blood Gas Low PEEP Setting 0 Blood Gas Modality VENT - AC Blood Gas Notified Time 09/12/2016 8:01:59 AM Blood Gas Notified Whom JLD Blood Gas Respiration Rate 12.0 Blood Gas Specimen Source Blood arterial Blood Gas Temperature 37.0 Blood Gas Tidal Volume 450.0 FiO2 30.0 Oxyhemoglobin Percent 96.8 Total Hemoglobin 9.6 L Test 09/12/16 08:26 09/12/16 10:10 Activated Partial Thromboplast Time 55.8 H Basophils # 0.1 Basophils % 0.4 D-Dimer > 08378.00 H Eosinophils # 0.2 Eosinophils % 1.4 Fibrinogen 581.0 H Hematocrit 28.8 L Hemoglobin 9.7 L INR International Normalized Ratio 1.67 Lymphocytes # 1.3 Lymphocytes % 7.8 L Mean Corpuscular Hemoglobin 29.6 Mean Corpuscular Hemoglobin Concent 33.7 Mean Corpuscular Volume 87.8 Mean Platelet Volume Monocytes # 0.5 Monocytes % 3.1 Neutrophils # 14.0 H Neutrophils % 86.0 H Nucleated Red Blood Cells # 0.0 Nucleated Red Blood Cells % 0.0 Plasma Fibrin Degradation Products Pending Platelet Count 16 *L Prothrombin Time 19.8 H Prothrombin Time Ratio 1.5 Red Blood Count 3.28 L Red Cell Distribution Width 15.3 H Thrombin Time 14.0 White Blood Count 16.8 H Bedside Glucose 113 Medications Medications Current Medications Ondansetron HCl (Zofran Inj) 4 mg Q6H PRN IV NAUSEA AND/OR VOMITING Last administered on 09/10/16 23:03; Admin Dose 4 MG; Start 09/09/16 at 20:00 Nitroglycerin (Nitroglycerin (Sl Tab) 0.4 Mg) 1 tab Q5M PRN SL CHEST PAIN; Start 09/09/16 at 20:00 Acetaminophen (Tylenol Liquid) 650 mg Q6H PRN PO PAIN LEVEL 1-3 OR FEVER; Start 09/09/16 at 20:00 Morphine Sulfate (morphine) 2 mg Q4H PRN IV PAIN LEVEL 7-10 Last administered on 09/10/16 23:03; Admin Dose 2 MG; Start 09/09/16 at 20:00 Lorazepam (Ativan) 1 mg Q2H PRN IV ANXIETY Last administered on 09/11/16 04:06 ; Admin Dose 1 MG; Start 09/09/16 at 20:00 Glucose (Glutose) 15 gm Q15M PRN PO DECREASED GLUCOSE; Start 09/09/16 at 20:30 Glucose (Glutose) 22.5 gm Q15M PRN PO DECREASED GLUCOSE; Start 09/09/16 at 20: 30 Dextrose (D50w Syringe) 25 ml Q15M PRN IV DECREASED GLUCOSE; Start 09/09/16 at 20:30 Dextrose (D50w Syringe) 50 ml Q15M PRN IV DECREASED GLUCOSE; Start 09/09/16 at 20:30 Glucagon (Glucagen) 1 mg Q15M PRN IM DECREASED GLUCOSE; Start 09/09/16 at 20:30 Glucose (Glutose) 15 gm Q15M PRN BUCCAL DECREASED GLUCOSE; Start 09/09/16 at 20 :30 Famotidine 20 mg 20 mg DAILY IV Last administered on 09/12/16 10:03; Admin Dose 20 MG; Start 09/10/16 at 09:00 Vancomycin HCl/ Sodium Chloride (Vancocin/NS) 150 ml @ 75 mls/hr Q36H IVPB Last administered on 09/11/16 05:56; Admin Dose 75 MLS/HR; Start 09/11/16 at 06 :00; Status Future Hold Docusate Sodium 100 mg 100 mg Q12H PO Last administered on 09/12/16 10:03; Admin Dose 100 MG; Start 09/10/16 at 20:00 Phenylephrine HCl 160 mg/Dextrose 500 ml @ 0 mls/hr TITRATE IV Last administered on 09/11/16 11:02; Admin Dose 28.12 MLS/HR; Start 09/10/16 at 19: 30 Norepinephrine 32 mg/Dextrose 250 ml @ 0.46 mls/hr TITRATE IV Last administered on 09/12/16 10:16; Admin Dose 14.05 MLS/HR; Start 09/10/16 at 22: 00 Midazolam HCl 50 ml @ 1 mls/hr TITRATE IV Last administered on 09/11/16 19:46 ; Admin Dose 2 MLS/HR; Start 09/11/16 at 08:30 Fentanyl 100 ml @ 2.5 mls/hr TITRATE IV Last administered on 09/11/16 22:50; Admin Dose 5 MLS/HR; Start 09/11/16 at 08:30 Piperacillin Sod/ Tazobactam Sod (Zosyn 2.25gm/ 50ml (Pmx)) 50 ml @ 200 mls/hr Q6 IVPB Last administered on 09/12/16 06:09; Admin Dose 200 MLS/HR; Start at 09:45 Aspirin 81 mg 81 mg DAILY PO ; Start 09/12/16 at 09:00 Sodium Bicarbonate/ Dextrose (Na Bicarb/D5W) 1,000 ml @ 125 mls/hr Q8H IV Last administered on 09/12/16 10:18; Admin Dose 125 MLS/HR; Start 09/11/16 at 13:15 Insulin Aspart NOVOLOG *MILD* ALGORI... Q4 SC ; Start 09/11/16 at 21:00 Levetiracetam/ Dextrose (Keppra Iv/D5W) 110 ml @ 440 mls/hr Q12 IVPB ; Start at 11:30 ALLISON CONTRERAS Sep 12, 2016 11:01
[2016-09-12] MEDS: LEVETIRACETAM IV 1,000 MG in DEXTROSE 5% 100 ML IVPB SCH ×2 (12:05→20:38)
--- NOTE | 2016-09-12 12:12 | PN ---
DATE: 09/12/2016 SUBJECTIVE: No acute events. The patient remains intubated, off sedation, unresponsive. She is on multiple pressors for blood pressure support with Michael- Synephrine and Levophed drip. Family at bedside. VITAL SIGNS: Temperature 98.9, pulse 93, respirations 13, blood pressure 112/48 , saturation 100 on 30 FIO2. WBC 16.8, H and H 9.7 and 28.8, platelets 16, neutrophils 86, no bands. Lactic acid 2.7, BUN 54, creatinine 3.61. INDWELLINGS: Endotracheal tube, NG tube, right IJ triple lumen catheter, Alaniz catheter. ANTIMICROBIALS: 1. Vancomycin. 2. Zosyn. MICROBIOLOGY: Blood culture and urine culture growing Escherichia coli. PHYSICAL EXAMINATION: GENERAL: This is a well-developed, elderly woman who is intubated, in no distress. HEENT: Head atraumatic, normocephalic. Sclerae anicteric. Buccal mucosa dry. NECK: Supple, trachea midline. CHEST: Rise symmetrical. Breath sounds diminished to bases. HEART: S1, S2, tachycardic, soft. ABDOMEN: Soft. Bowel tones hypoactive. EXTREMITIES: With trace edema and mottled. ASSESSMENT: 1. Severe sepsis with shock and multisystem organ failure. 2. Escherichia coli UTI with bacteremia. 3. Acute renal failure with metabolic acidosis. 4. Coagulopathy, possible DIC. 5. Acute event respiratory failure, intubated. 6. Acute encephalopathy. 7. Severe thrombocytopenia secondary to above. PLAN: The patient remains hemodynamically unstable, overall doing poorly. She is covered with broad spectrum antibiotics, which we are going to continue. Repeat blood cultures pending. She is being followed by multiple consultants. Prognosis guarded. Above was discussed with family at bedside. Dictated By: CHLOE MONROY VP LAB for DELANO RODRIGUEZ/ARLENE Conf#: [id number] DID#: [id number] MTDD
[2016-09-12 12:13] LABS: FIBRIN SPLIT PRODUCT <10 ug/ml (<10)
[2016-09-12] MEDS ORDERED: VANCOMYCIN 750 MG in SOD CHLORIDE 0.9% 150 ML IVPB SCH (14:30)
--- NOTE | 2016-09-12 15:55 | CONS ---
DATE OF ADMISSION: 09/09/2016 DATE OF CONSULTATION: 09/10/2016 TYPE OF CONSULTATION: Infectious disease. REASON FOR CONSULTATION: Antibiotic management. HISTORY OF PRESENT ILLNESS: Kay Juarez is an unfortunate 75-year-old female with n umerous problems who comes in with weakness, decreased urinary output for several days and severe se psis. She is a 75-year-old female with problems which include: 1. Adult-onset diabetes mellitus. 2. Chronic pain syndrome. As noted, she had decreased urine associated with nausea and was found t o have severe sepsis with leukocytosis, hypotension and lactic acidosis. She was admitted to the [facility] for acute changes. Intravenous fluids, pressors and IV antibiotics. Patient has acute renal fail ure secondary to ATN. She currently is intubated. She has an ET tube, an NG tube, a Alaniz catheter and a central line. HER PAST PROBLEMS: Include: 1. Chronic back pain. 2. Diabetes mellitus. 3. Surgical history of ALVARO and BSO. FAMILY HISTORY: Noncontributory. SOCIAL HISTORY: She is a current every day smoker. PHYSICAL EXAMINATION: GENERAL: She is an elderly appearing female who is obtunded on a respirator. VITAL SIGNS: Stable. Her blood pressure is 88/49, probably maintained on pressors. She has an ET tube, an NG tube. SKIN: Without generalized rash. HEENT: Within normal limits. NECK: Supple. LYMPH NODES: None palpable. CHEST: Decreased breath sounds at the bases. HEART: Without murmur or gallop. ABDOMEN: Soft, nontender, without organosplenomegaly or masses. EXTREMITIES: Without cyanosis, clubbing, or edema. RECTAL AND GENITAL: Deferred. NEUROLOGIC: Difficult to assess. She is obtunded. HOSPITAL COURSE: Her white count on the was 23.4, H and H of 12.6 and 37.2, platelet count 176 ,000. BUN and creatinine 23/1.58, glucose of 205. She was placed on vancomycin and Zosyn. Chest x -ray shows calcification of the thoracic aorta, no evidence for acute cardiopulmonary disease. Ches t x-ray on the shows no acute cardiopulmonary process, stable lines and tubes. Microbiology: She has urosepsis or UTI with sepsis with Escherichia coli, which is sensitive to cefotaxime. The p atient is currently on vancomycin and Zosyn. She has a right IJ triple lumen catheter as noted. We can probably switch her over to Rocephin. I will dictate my findings to the hospitalist. Dictated By: DELANO DUNNE MD, JD/ARLENE Conf#: [id number] DID#: [id number]
[2016-09-12 16:26] LABS: PLATELET ESTIMATE PLT APPEAR DECREASED
[2016-09-12 16:32] LABS: EOSINOPHILS # 0.3 10^3/ul (0.0-0.5); LYMPHOCYTES # 1.7 10^3/ul (0.8-2.9); MONOCYTE # 0.5 10^3/ul (0.3-0.9); NEUTROPHIL # 12.1 10^3/ul (1.6-7.5)
[2016-09-12] MEDS: CEFTRIAXONE 1 GM/50 ML (PMX) 50 ML IVPB SCH (17:27)
--- NOTE | 2016-09-12 19:09 | QN ---
Documentation Comment [id number] consult QUITA SCHOFIELD MD Sep 12, 2016 19:09
[2016-09-12 19:18] LABS: HAAIG REFLEX REFLEX FILED
--- NOTE | 2016-09-12 20:23 | CONS ---
DATE OF ADMISSION: 09/09/2016 DATE OF CONSULTATION: TYPE OF CONSULTATION: Nephrology. Thank you, Dr. Land, HISTORY OF PRESENT ILLNESS: Thank you Dr. Land for kindly asking me to see this patient in consultation. Chart reviewed. The patient initially was admitted with severe sepsis. The patient currently is intubated, unable to give any history. Patient is on pressors and in view of patient's abnormal electrolytes , nephrology consultation requested. Patient's diagnoses include: 1. Sepsis. 2. Renal failure. 3. Diabetes mellitus. The patient is being seen by Dr. Angel Massey for of his impression. The patient has a gram-negative sepsis and severe hypotension. The patient has also thrombocytopenia. The patient is being seen by Dr. Vinson in consultation and Dr. Vinson' impression positive troponin, hypertension, hypotension shock state , respiratory failure, leukocytosis and the patient, as mentioned, unable to give any detailed history. The patient's laboratory data shows patient's WBC is , hematocrit 28.8, platelet count of 16. Patient has sodium 139, potassium 4.7, CO2 19, _28, BUN 54, creatinine 3.61. Troponin 0.470, patient had an echocardiogram done shows the patient has ejection fraction _%, mild wall leaflet, estimated peak PA systolic pressure 65, mild to moderate tricuspid regurgitation. PAST MEDICAL HISTORY: Cannot be obtained as mentioned above. ALLERGY HISTORY: Not available. FAMILY HISTORY: Cannot be obtained. SOCIAL HISTORY: Cannot be obtained. MEDICATION HISTORY: The patient is currently on: 1. Rocephin. 2. Dextrose with sodium bicarbonate. 3. Keppra. 4. Versed. 5. Norepinephrine. 6. Phenylephrine. 7. Michael-Synephrine. 8. Zosyn. 9. Vancomycin. 10. Tylenol. 11. Aspirin. 12. Pepcid. 13. Glucagon. 14. Heparin. 15. Lorazepam. 16. Nitroglycerin 17. NovoLog insulin. 18. Vancomycin. REVIEW OF SYSTEMS: Cannot be obtained. PHYSICAL EXAMINATION: GENERAL: The patient is intubated, unresponsive, possibly sedated. VITAL SIGNS: Pulse 80, blood pressure 106/47. Patient intake recorded as 3155 , output 290. HEENT: Head is atraumatic, normocephalic. Pupils equal, reactive. NECK: Supple, no JVD. LUNGS: Rhonchi noted. CARDIOVASCULAR: S1, S2 are normal. ABDOMEN: Soft, nontender. Bowel sounds positive. No palpable mass abdominal area noted. EXTREMITIES: There is no cyanosis, clubbing. Trace edema. LABORATORY DATA: As mentioned above. The patient has BUN 43, creatinine 3.15 earlier. Urine, specific gravity x15, trace ketones, nitrite positive. The patient has ultrasound of the kidney shows the patient's urinary bladder is not well distended. Right-sided mild hydronephrosis, right kidney 12.9 cm, left 9.7 cm. Chest x-ray shows no acute abdominal process, atherosclerosis. IMPRESSION: 1. Patient has acute kidney injury. 2. Patient has acute kidney injury possibly due to severe hypertension and sepsis. 3. Patient has acute tubular necrosis multifactorial. 4.. Patient has leukocytosis, anemia, thrombocytopenia. The patient has Escherichia coli bacteremia, E. coli urinary tract infection. OTHER DIAGNOSES: Metabolic acidosis, respiratory failure, vent dependent, incomplete database, positive troponin, thrombocytopenia. PLAN: To obtain urine sodium, creatinine and eosinophil. IV fluid will be continued. Patient's uric acid, phosphorus will be monitored, including BMP. Patient will use Lasix p.r.n. Thank you, Dr. Land for kindly asking me to see this patient in nephrology consultation. Dictated By: QUITA LEON/ARLENE Conf#: [id number] DID#: [id number] MTDD
[2016-09-12 20:42] LABS: PROTEIN URINE 91.5 mg/dl (0.0-9.9); PROTEIN/CREAT RATIO 2.42 RATIO
[2016-09-12 20:48] LABS: HEPATITIS B CORE ANTIBODY NEGATIVE (NEGATIVE)
[2016-09-13] VITALS (93 sets, daily range): BP systolic 97–170; BP diastolic 49–86; PULSE 71–91; RESP 1–25
[2016-09-13] MEDS: PIPER-TAZO 2.25 GM (PMX) 50 ML IVPB SCH ×2 (01:19→05:41)
[2016-09-13] MEDS: INSULIN ASPART [NOVOLOG] 3 ML PEN SC SCH ×6 (01:35→21:00)
[2016-09-13] MEDS: SODIUM BICARBONATE (IV ADD) 100 MEQ in DEXTROSE 5% 900 ML IV SCH ×2 (04:32→05:15)
[2016-09-13 06:26] LABS: ADD SCAN DIFF NO
[2016-09-13 06:53] LABS: ABNORMAL IP MESSAGE 1; HEMATOCRIT 26.8 % (37.0-47.0); HEMOGLOBIN 9.1 g/dl (12.0-16.0); MEAN CORPUSCULAR HEMOGLOBIN 28.9 pg (29.0-33.0); MEAN CORPUSCULAR VOLUME 85.1 fl (82.0-101.0); MEAN PLATELET VOLUME 10.5 fl (7.4-10.4); RED BLOOD COUNT 3.15 10^6/ul (4.20-5.40); RED CELL DISTRIBUTION WIDTH 14.7 % (11.5-14.5)
[2016-09-13 06:57] LABS: CREATININE 3.91 mg/dl (0.44-1.00)
[2016-09-13 06:58] LABS: CALCIUM 6.8 mg/dl (8.4-10.2)
[2016-09-13 07:33] LABS: PLATELET COUNT 6 10^3/UL (140-415)
[2016-09-13] MEDS ORDERED: SOD CHLORIDE 0.9% 1,000 ML IV ONE (08:00)
[2016-09-13] MEDS: FAMOTIDINE 20 MG INJ IV SCH (08:00)
[2016-09-13] MEDS: DOCUSATE SODIUM 100 MG CAP PO SCH ×2 (08:13→20:00)
[2016-09-13] MEDS: ASPIRIN 81 MG TAB PO SCH (08:13)
[2016-09-13] MEDS: LEVETIRACETAM IV 1,000 MG in DEXTROSE 5% 100 ML IVPB SCH ×2 (08:13→21:30)
[2016-09-13] MEDS ORDERED: CALCIUM GLUCONATE 10% 2 GM in SOD CHLORIDE 0.9% 100 ML IVPB ONE (09:30)
--- NOTE | 2016-09-13 09:49 | CONS ---
Date/Time of Note Date/Time of Note DATE: 09/13/16 TIME: 09:43 Assessment/Plan Assessment/Plan Additional Assessment/Plan Ventilator settings; AC of 12, tidal volume 450, PEEP of 5, 30% FiO2. Assessment and recommendations; 1. Patient admitted with severe gram-negative sepsis from UTI leading to respiratory failure. 2. Acute renal failure. Patient however having adequate urine output. 3. Severe thrombocytopenia. 4. Perform mental unresponsiveness. Continue current supportive care. Transfuse platelets. Obtain a CT of the head. Discontinue Zosyn due to thrombocytopenia and continue Rocephin and vancomycin. Prognosis remains very guarded. Consultation Date/Type/Reason Admit Date/Time Sep 09, 2016 at 19:47 Initial Consult Date 09/11/16 Type of Consultation: Pulmonary/critical care Referring Provider: JOAN MALONEY MD 24 HR Interval Summary Free Text/Dictation Patient's condition remains critical. However patient is improving hemodynamically and currently on low-dose Levophed drip only. Patient however still remains unresponsive despite getting no sedation. General examination; elderly woman orally intubated, unresponsive. Exam/Review of Systems Vital Signs Vitals Vital Signs Date Time Temp Pulse Resp B/P Pulse Ox O2 Delivery O2 Flow Rate FiO2 09/13/16 08:00 78 09/13/16 06:30 13 139/62 100 Mechanical Ventilator 09/13/16 05:19 30 09/13/16 04:00 98.6 09/11/16 08:00 5.0 Intake and Output 09/12/16 09/12/16 09/13/16 15:00 23:00 07:00 Intake Total 1313.46 ml 1462.975 ml 1056.97 ml Output Total 315 ml 320 ml 230 ml Balance 998.46 ml 1142.975 ml 826.97 ml Exam H EENT examination; supple neck, no JVD. No lymphadenopathy. Pupils small bilaterally. Orally intubated. No thyromegaly. Chest examination; clear to auscultation bilaterally. S1-S2 audible, no murmurs. Regular rhythm. Abdomen examination; soft, nondistended. No organomegaly. Extremity examination; no peripheral edema. INTEGRITY ENGINEER examination; patient remains unresponsive. Results Result Diagram: 09/13/16 0510 09/13/16 0510 Results 24 hrs Laboratory Tests Test 09/12/16 10:10 09/12/16 12:43 09/12/16 18:33 09/12/16 19:00 Bedside Glucose 113 146 191 Urine Eosinophils % 1.0 Urine Protein/Creatinine Ratio 2.42 Urine Random Creatinine 37.78 Urine Random Sodium 82 Urine Total Protein 91.5 H Test 09/12/16 19:05 09/12/16 20:34 09/13/16 01:20 09/13/16 05:10 Hepatitis B Core Total Antibody NEGATIVE Hepatitis B Surface Antigen NEGATIVE Hepatitis C Antibody NEGATIVE Parathyroid Hormone (Intact) Phosphorus Level 4.0 Bedside Glucose 197 201 Anion Gap 17 H Blood Urea Nitrogen 55 H Calcium Level 6.8 L Carbon Dioxide Level 33 H Chloride Level 91 L Creatinine 3.91 H Eosinophils # Eosinophils % Glucose Level 197 Hematocrit 26.8 L Hemoglobin 9.1 L Lactic Acid Level 2.3 H Mean Corpuscular Hemoglobin 28.9 L Mean Corpuscular Hemoglobin Concent 34.0 Mean Corpuscular Volume 85.1 Mean Platelet Volume 10.5 H Neutrophils # Neutrophils % Platelet Count 6 #*L Potassium Level 4.0 Red Blood Count 3.15 L Red Cell Distribution Width 14.7 H Sodium Level 137 White Blood Count 11.0 #H Test 09/13/16 05:36 Bedside Glucose 214 Medications Medications Current Medications Ondansetron HCl (Zofran Inj) 4 mg Q6H PRN IV NAUSEA AND/OR VOMITING Last administered on 09/10/16 23:03; Admin Dose 4 MG; Start 09/09/16 at 20:00 Nitroglycerin (Nitroglycerin (Sl Tab) 0.4 Mg) 1 tab Q5M PRN SL CHEST PAIN; Start 09/09/16 at 20:00 Acetaminophen (Tylenol Liquid) 650 mg Q6H PRN PO PAIN LEVEL 1-3 OR FEVER; Start 09/09/16 at 20:00 Morphine Sulfate (morphine) 2 mg Q4H PRN IV PAIN LEVEL 7-10 Last administered on 09/10/16 23:03; Admin Dose 2 MG; Start 09/09/16 at 20:00 Lorazepam (Ativan) 1 mg Q2H PRN IV ANXIETY Last administered on 09/11/16 04:06 ; Admin Dose 1 MG; Start 09/09/16 at 20:00 Glucose (Glutose) 15 gm Q15M PRN PO DECREASED GLUCOSE; Start 09/09/16 at 20:30 Glucose (Glutose) 22.5 gm Q15M PRN PO DECREASED GLUCOSE; Start 09/09/16 at 20: 30 Dextrose (D50w Syringe) 25 ml Q15M PRN IV DECREASED GLUCOSE; Start 09/09/16 at 20:30 Dextrose (D50w Syringe) 50 ml Q15M PRN IV DECREASED GLUCOSE; Start 09/09/16 at 20:30 Glucagon (Glucagen) 1 mg Q15M PRN IM DECREASED GLUCOSE; Start 09/09/16 at 20:30 Glucose (Glutose) 15 gm Q15M PRN BUCCAL DECREASED GLUCOSE; Start 09/09/16 at 20 :30 Famotidine (Pepcid Iv) 20 mg DAILY IV Last administered on 09/13/16 08:00; Admin Dose 20 MG; Start 09/10/16 at 09:00 Docusate Sodium 100 mg 100 mg Q12H PO Last administered on 09/13/16 08:13; Admin Dose 100 MG; Start 09/10/16 at 20:00 Phenylephrine HCl 160 mg/Dextrose 500 ml @ 0 mls/hr TITRATE IV Last administered on 09/11/16 11:02; Admin Dose 28.12 MLS/HR; Start 09/10/16 at 19: 30 Norepinephrine 32 mg/Dextrose 250 ml @ 0.46 mls/hr TITRATE IV Last administered on 09/12/16 10:16; Admin Dose 14.05 MLS/HR; Start 09/10/16 at 22: 00 Midazolam HCl 50 ml @ 1 mls/hr TITRATE IV Last administered on 09/11/16 19:46 ; Admin Dose 2 MLS/HR; Start 09/11/16 at 08:30 Fentanyl 100 ml @ 2.5 mls/hr TITRATE IV Last administered on 09/11/16 22:50; Admin Dose 5 MLS/HR; Start 09/11/16 at 08:30 Piperacillin Sod/ Tazobactam Sod (Zosyn 2.25gm/ 50ml (Pmx)) 50 ml @ 200 mls/hr Q6 IVPB Last administered on 09/13/16 05:41; Admin Dose 200 MLS/HR; Start at 09:45 Aspirin 81 mg 81 mg DAILY PO Last administered on 09/13/16 08:13; Admin Dose 81 MG; Start 09/12/16 at 09:00 Sodium Bicarbonate/ Dextrose (Na Bicarb/D5W) 1,000 ml @ 125 mls/hr Q8H IV Last administered on 09/13/16 04:32; Admin Dose 125 MLS/HR; Start 09/11/16 at 13:15 Insulin Aspart NOVOLOG *MILD* ALGORI... Q4 SC Last administered on 09/13/16 05 :43; Admin Dose 2 UNIT; Start 09/11/16 at 21:00 Levetiracetam 1000 mg/Dextrose 110 ml @ 440 mls/hr Q12 IVPB Last administered on 09/13/16 08:13; Admin Dose 440 MLS/HR; Start 09/12/16 at 11:30 Ceftriaxone Sodium 50 ml @ 100 mls/hr Q24H IVPB Last administered on 17:27; Admin Dose 100 MLS/HR; Start 09/12/16 at 16:00 Sodium Chloride 1,000 ml @ 500 mls/hr Q2H ONCE IV Last administered on 08:23; Admin Dose 500 MLS/HR; Start 09/13/16 at 08:00; Stop 09/13/16 at 09: 59 Calcium Gluconate/ Sodium Chloride (Ca Gluc/NS) 120 ml @ 60 mls/hr ONCE ONCE IVPB ; Start 09/13/16 at 09:30; Stop 09/13/16 at 11:29 DEANNA MONSALVE Sep 13, 2016 09:49
[2016-09-13 09:59] LABS: EOSINOPHILS # 0.1 10^3/ul (0.0-0.5); LYMPHOCYTES # 0.2 10^3/ul (0.8-2.9); MONOCYTE # 0.6 10^3/ul (0.3-0.9); NEUTROPHIL # 9.2 10^3/ul (1.6-7.5)
[2016-09-13 10:00] LABS: PLATELET ESTIMATE PLT APPEAR DECREASED
[2016-09-13 10:05] LABS: AADO2 Arterial 30.7 mmHg (7.0-24.0); Allen Test ACCEPTAB; Arterial Base Excess 8.4 mmol/L (-3.0-3); Arterial COHb 0.3 % (0.0-3.0); Arterial Fraction of Oxyhgb 97.8 % (93.0-99.0); Arterial HCO3 33.4 mmol/L (22.0-26.0); Arterial MetHb 0.3 % (0.0-1.5); Arterial Total Hemglobin 10.3 g/dl (12.0-18.0); Blood Gas Low PEEP Setting 0 cmH2O; MODE VENT - AC
--- NOTE | 2016-09-13 11:34 | PN ---
DATE: 09/13/2016 INFECTIOUS DISEASE PROGRESS NOTE SUBJECTIVE: Patient is lying comfortably in bed. She is on Levophed only. Michael-Synephrine most tape red off. She is getting platelet transfusion. VITAL SIGNS: Temperature 98.6, pulse 86, respirations 12, blood pressure 139/62, saturation 99% on 30%. LABORATORY DATA: WBC today 11, H and H 9.1 and 26.8, platelets 6, neutrophils 84, bands 8, lymphs 2 , BUN 55, creatinine 3.91. MICROBIOLOGY: Blood and urine culture growing Escherichia coli. Repeat blood cultures pending. INDWELLINGS: Endotracheal tube, NG tube, Alaniz catheter, right IJ triple-lumen catheter. ANTIMICROBIALS: Rocephin, status post vancomycin, Zosyn. PHYSICAL EXAMINATION: GENERAL: This is a fragile, elderly woman who is in no distress. HEENT: Head atraumatic, normocephalic. Sclerae anicteric. Buccal mucosa dry. NECK: Supple. CHEST: Rise symmetrical. Breath sounds diminished to bases. HEART: S1, S2. ABDOMEN: Soft, bowel tones present. EXTREMITIES: With trace edema, mottled. ASSESSMENT: 1. Severe sepsis with shock and multisystem organ failure. 2. Escherichia coli urinary tract infection with bacteremia. 3. Acute respiratory failure. 4. Acute encephalopathy. 5. Acute renal failure with metabolic acidosis. 6. Coagulopathy with anemia and thrombocytopenia, possible DIC. PLAN: The patient remains hemodynamically unstable, although now on 1 pressor only. She is getting platelet transfusion and getting blood products p.r.n. She is being followed by multiple human resources consultant s. Antibiotics downgraded to Rocephin pending repeat blood cultures. Dictated By: CHLOE MONROY DEWATERING FILTERING SUPERVISOR for DELANO DUNNE MD NI/NTS Conf#: [id number] DID#: [id number]
--- NOTE | 2016-09-13 12:01 | CONS ---
Date/Time of Note Date/Time of Note DATE: 09/13/16 TIME: 11:59 Assessment/Plan Assessment/Plan Additional Assessment/Plan 1. Positive troponin, assess significance, assess for true acute coronary syndrome.-mild uptrend in setting of renal failure - no intervention planned now , will monitor 2. Hypotension, shock state. Rule out cardiac etiology-EF 45-50 by echo this admit - better now, con't supportive care 3. Abnormal electrocardiogram, assess for acute coronary syndrome- no cp now, will monitor 4. Respiratory failure- acute, con't resp rx, intubated 5. Leukocytosis- on anti-bx 6. Anemia- H/H stable - no significant active bleed noted 7. Thrombocytopenia. 8. Renal failure. 9. Bacteremia with gram negative rods. Consultation Date/Type/Reason Admit Date/Time Sep 09, 2016 at 19:47 Initial Consult Date 09/11/16 Type of Consultation: Pulmonary/critical care Referring Provider: JOAN MALONEY MD 24 HR Interval Summary Free Text/Dictation NO acute cahnge - BP stable, family at bedside - happy with care. ROS: No fever, no chills, no nausea, no vomiting, no diarrhea/constipation No recent weight changes No chest pain, no PND, no orthopnea No dizziness, blurred vision No thirst, no heat or cold intolerance (per nurse)_ Exam/Review of Systems Vital Signs Vitals Vital Signs Date Time Temp Pulse Resp B/P Pulse Ox O2 Delivery O2 Flow Rate FiO2 09/13/16 09:00 86 12 99 30 09/13/16 06:30 139/62 Mechanical Ventilator 09/13/16 04:00 98.6 09/11/16 08:00 5.0 Intake and Output 09/12/16 09/12/16 09/13/16 15:00 23:00 07:00 Intake Total 1313.46 ml 1462.975 ml 1056.97 ml Output Total 315 ml 320 ml 230 ml Balance 998.46 ml 1142.975 ml 826.97 ml Exam General: WN/WD/NAD, AOx 0 HEENT: Unicetric/atraumatic/EOMI (does not follow commands) NECK: JVD elevated, no thyromegaly, intib Lymph: no lymphadenopathy HEART: regular with no S3, II/ systolic murmur at apex LUNGS: Coarse sounds ABD: soft, NT, ND, +BS : Intact Neuro: non focal SKIN: chronic changes EXT: trace edema, rue swelling Results Result Diagram: 09/13/16 0510 09/13/16 0510 Results 24 hrs Laboratory Tests Test 09/12/16 12:43 09/12/16 18:33 09/12/16 19:00 09/12/16 19:05 Bedside Glucose 146 191 Urine Eosinophils % 1.0 Urine Protein/Creatinine Ratio 2.42 Urine Random Creatinine 37.78 Urine Random Sodium 82 Urine Total Protein 91.5 H Hepatitis B Core Total Antibody NEGATIVE Hepatitis B Surface Antigen NEGATIVE Hepatitis C Antibody NEGATIVE Parathyroid Hormone (Intact) Phosphorus Level 4.0 Test 09/12/16 20:34 09/13/16 01:20 09/13/16 05:10 09/13/16 05:36 Bedside Glucose 197 201 214 Anion Gap 17 H Band Neutrophils % 8.0 H Blood Urea Nitrogen 55 H Calcium Level 6.8 L Carbon Dioxide Level 33 H Chloride Level 91 L Creatinine 3.91 H Eosinophils # 0.1 Eosinophils % 1.0 Glucose Level 197 Hematocrit 26.8 L Hemoglobin 9.1 L Lactic Acid Level 2.3 H Lymphocytes # 0.2 L Lymphocytes % 2.0 L Mean Corpuscular Hemoglobin 28.9 L Mean Corpuscular Hemoglobin Concent 34.0 Mean Corpuscular Volume 85.1 Mean Platelet Volume 10.5 H Monocytes # 0.6 Monocytes % 5.0 Neutrophils # 9.2 H Neutrophils % 84.0 H Platelet Count 6 #*L Platelet Estimate PLT APPEAR DECREASED Potassium Level 4.0 Red Blood Count 3.15 L Red Cell Distribution Width 14.7 H Sodium Level 137 White Blood Count 11.0 #H Test 09/13/16 09:23 Arterial Blood HCO3 33.4 H Arterial Blood Base Excess 8.4 H Arterial Blood Oxygen Saturation 98.4 Jarett Test ACCEPTAB Arterial Blood Gas Puncture Site Left Radial Arterial Blood Carboxyhemoglobin 0.3 Arterial Blood Date Drawn 09/13/2016 9:51:51 AM Arterial Blood Methemoglobin 0.3 Arterial Blood pCO2 (Temp correct) 48.6 H Arterial Blood pH (Temp corrected) 7.455 H Arterial Blood pO2 (Temp corrected) 126.1 H Blood Gas A-a O2 Differential 30.7 H Blood Gas Actual Respiration Rate 16 Blood Gas Low PEEP Setting 0 Blood Gas Modality VENT - AC Blood Gas Notified Time 09/13/2016 10:05:34 AM Blood Gas Notified Whom JLD Blood Gas Respiration Rate 12.0 Blood Gas Specimen Source Blood arterial Blood Gas Temperature 37.0 Blood Gas Tidal Volume 450.0 FiO2 30.0 Oxyhemoglobin Percent 97.8 Total Hemoglobin 10.3 L Medications Medications Current Medications Ondansetron HCl (Zofran Inj) 4 mg Q6H PRN IV NAUSEA AND/OR VOMITING Last administered on 09/10/16 23:03; Admin Dose 4 MG; Start 09/09/16 at 20:00 Nitroglycerin (Nitroglycerin (Sl Tab) 0.4 Mg) 1 tab Q5M PRN SL CHEST PAIN; Start 09/09/16 at 20:00 Acetaminophen (Tylenol Liquid) 650 mg Q6H PRN PO PAIN LEVEL 1-3 OR FEVER; Start 09/09/16 at 20:00 Morphine Sulfate (morphine) 2 mg Q4H PRN IV PAIN LEVEL 7-10 Last administered on 09/10/16 23:03; Admin Dose 2 MG; Start 09/09/16 at 20:00 Lorazepam (Ativan) 1 mg Q2H PRN IV ANXIETY Last administered on 09/11/16 04:06 ; Admin Dose 1 MG; Start 09/09/16 at 20:00 Glucose (Glutose) 15 gm Q15M PRN PO DECREASED GLUCOSE; Start 09/09/16 at 20:30 Glucose (Glutose) 22.5 gm Q15M PRN PO DECREASED GLUCOSE; Start 09/09/16 at 20: 30 Dextrose (D50w Syringe) 25 ml Q15M PRN IV DECREASED GLUCOSE; Start 09/09/16 at 20:30 Dextrose (D50w Syringe) 50 ml Q15M PRN IV DECREASED GLUCOSE; Start 09/09/16 at 20:30 Glucagon (Glucagen) 1 mg Q15M PRN IM DECREASED GLUCOSE; Start 09/09/16 at 20:30 Glucose (Glutose) 15 gm Q15M PRN BUCCAL DECREASED GLUCOSE; Start 09/09/16 at 20 :30 Famotidine (Pepcid Iv) 20 mg DAILY IV Last administered on 09/13/16 08:00; Admin Dose 20 MG; Start 09/10/16 at 09:00 Docusate Sodium 100 mg 100 mg Q12H PO Last administered on 09/13/16 08:13; Admin Dose 100 MG; Start 09/10/16 at 20:00 Phenylephrine HCl 160 mg/Dextrose 500 ml @ 0 mls/hr TITRATE IV Last administered on 09/11/16 11:02; Admin Dose 28.12 MLS/HR; Start 09/10/16 at 19: 30 Norepinephrine 32 mg/Dextrose 250 ml @ 0.46 mls/hr TITRATE IV Last administered on 09/12/16 10:16; Admin Dose 14.05 MLS/HR; Start 09/10/16 at 22: 00 Midazolam HCl 50 ml @ 1 mls/hr TITRATE IV Last administered on 09/11/16 19:46 ; Admin Dose 2 MLS/HR; Start 09/11/16 at 08:30 Fentanyl (Sublimaze) 100 ml @ 2.5 mls/hr TITRATE IV Last administered on 22:50; Admin Dose 5 MLS/HR; Start 09/11/16 at 08:30 Aspirin 81 mg 81 mg DAILY PO Last administered on 09/13/16 08:13; Admin Dose 81 MG; Start 09/12/16 at 09:00 Sodium Bicarbonate/ Dextrose (Na Bicarb/D5W) 1,000 ml @ 125 mls/hr Q8H IV Last administered on 09/13/16 04:32; Admin Dose 125 MLS/HR; Start 09/11/16 at 13:15 Insulin Aspart NOVOLOG *MILD* ALGORI... Q4 SC Last administered on 09/13/16 05 :43; Admin Dose 2 UNIT; Start 09/11/16 at 21:00 Levetiracetam 1000 mg/Dextrose 110 ml @ 440 mls/hr Q12 IVPB Last administered on 09/13/16 08:13; Admin Dose 440 MLS/HR; Start 09/12/16 at 11:30 Ceftriaxone Sodium (Rocephin) 50 ml @ 100 mls/hr Q24H IVPB Last administered on 09/12/16 17:27; Admin Dose 100 MLS/HR; Start 09/12/16 at 16:00 CHERI PATTEN MD Sep 13, 2016 12:01
--- NOTE | 2016-09-13 14:44 | RADRPT ---
PROCEDURE: CT Brain without contrast. CLINICAL INDICATION: poor mental statud TECHNIQUE: A CT of the brain was performed on a GE [employer] 64-slice CT scanner utilizing axial imaging from the skull base through the vertex without IV contrast. Multiplanar reformatted images were made. Images were reviewed on a PACS workstation. The CTDIvol is 39.3 mGy and the DLP is 555 mGycm. COMPARISON: None FINDINGS: There is no intracranial hemorrhage, mass effect, or midline shift. No extra-axial fluid collection is seen. The ventricles and sulci are normal in size and configuration. Nonspecific periventricular white matter hypodensities are mild in severity and may reflect chronic microvascular ischemic leon ge. 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 Sainz-white matter differentiation is preserved. In tracranial arterial calcifications are present. The visualized paranasal sinuses and osseous structures are grossly unremarkable. IMPRESSION: 1. No evidence of acute intracranial pathology. 2. Mild periventricular white matter hypodensities are nonspecific but likely reflect chronic micro vascular ischemic change. Physician Barbara Date Time Electronically viewed and signed by Physician Barbara on 09/13/2016 14:44 ML/
--- NOTE | 2016-09-13 14:45 | PN ---
Date/Time of Note Date/Time of Note DATE: 09/13/16 TIME: 14:33 Assessment/Plan VTE Prophylaxis VTE Prophylaxis Intervention: SCD's VTE Contraindication Reason: thrombocytopenia Lines/Catheters IV Catheter Type (from Nrsg): Central Line Central line still needed: Yes Urinary Cath still in place: Yes Reason Cath still needed: other (indicate) Assessment/Plan Assessment/Plan 75 yo female with a past medical history of type II DM, chronic pain who complains of weakness and decreased urinary output for the last several days. 1. Severe Sepsis with septic shock 2/2 Ecoli UTI /Bacteremia 2. Acute renal failure - 2/2 to ATN from sepsis 3. Type II DM - Hyperglycemic on D5W 4. Metabolic / Lactic acidosis 2/2 #1 5. Acute resp failure now ventilator dependent 6. NSTEMI versus demand ischemia 7. DIC with thrombocytopenia s/p FFP yesterday PLAN: * Continue ICU care / Continue to wean pressors * Platelet transfusion today / hematology consult * Continue Vent mgt / appreciate pulm input * Continue broad spectrum abx / Appreciate ID consult * Daily aspirin / no BB or Acei for now 2/2 hypotension /Appreciate Cardiology consult * SSI only for now till on some kind of diet * D/C D5 and Bicarb if ok with nephro / serial labs * Appreciate all consults PROPHYLAXIS: Pepcid / SCDS CRITICAL CARE TIME: >35 mins Subjective 24 Hr Interval Summary Free Text/Dictation Patient seen and examined. Nursing reports no acute overnight events. Grimacing noted and some upper extremity movt Weaned down to 1 pressor Subjective hx not possible: pt critical status Exam/Review of Systems Vital Signs Vitals Vital Signs Date Time Temp Pulse Resp B/P Pulse Ox O2 Delivery O2 Flow Rate FiO2 09/13/16 12:00 76 09/13/16 11:45 16 143/73 100 09/13/16 11:25 30 09/13/16 11:00 Mechanical Ventilator 09/13/16 08:00 98.0 09/11/16 08:00 5.0 Intake and Output 09/12/16 09/12/16 09/13/16 15:00 23:00 07:00 Intake Total 1313.46 ml 1462.975 ml 1056.97 ml Output Total 315 ml 320 ml 230 ml Balance 998.46 ml 1142.975 ml 826.97 ml Exam Constitutional: frail, No alert, No oriented Head: normocephalic Eyes: PERRL, icteric ENMT: intubated Respiratory: clear to auscultation, diminished breath sounds Cardiovascular: regular rate and rhythm, No murmurs/extra sounds Gastrointestinal: bowel sounds, distended, other (large periumbilical hernia), soft Genitourinary - Female: other (montoya draining clear urine) Extremities: No edema Neurological: No nl mental status Results Result Diagram: 09/13/16 0510 09/13/16 0510 Results 24 hrs Laboratory Tests Test 09/12/16 18:33 09/12/16 19:00 09/12/16 19:05 09/12/16 20:34 Bedside Glucose 191 197 Urine Eosinophils % 1.0 Urine Protein/Creatinine Ratio 2.42 Urine Random Creatinine 37.78 Urine Random Sodium 82 Urine Total Protein 91.5 H Hepatitis B Core Total Antibody NEGATIVE Hepatitis B Surface Antigen NEGATIVE Hepatitis C Antibody NEGATIVE Parathyroid Hormone (Intact) Phosphorus Level 4.0 Test 09/13/16 01:20 09/13/16 05:10 09/13/16 05:36 09/13/16 09:23 Bedside Glucose 201 214 Anion Gap 17 H Band Neutrophils % 8.0 H Blood Urea Nitrogen 55 H Calcium Level 6.8 L Carbon Dioxide Level 33 H Chloride Level 91 L Creatinine 3.91 H Eosinophils # 0.1 Eosinophils % 1.0 Glucose Level 197 Hematocrit 26.8 L Hemoglobin 9.1 L Lactic Acid Level 2.3 H Lymphocytes # 0.2 L Lymphocytes % 2.0 L Mean Corpuscular Hemoglobin 28.9 L Mean Corpuscular Hemoglobin Concent 34.0 Mean Corpuscular Volume 85.1 Mean Platelet Volume 10.5 H Monocytes # 0.6 Monocytes % 5.0 Neutrophils # 9.2 H Neutrophils % 84.0 H Platelet Count 6 #*L Platelet Estimate PLT APPEAR DECREASED Potassium Level 4.0 Red Blood Count 3.15 L Red Cell Distribution Width 14.7 H Sodium Level 137 White Blood Count 11.0 #H Arterial Blood HCO3 33.4 H Arterial Blood Base Excess 8.4 H Arterial Blood Oxygen Saturation 98.4 Jarett Test ACCEPTAB Arterial Blood Gas Puncture Site Left Radial Arterial Blood Carboxyhemoglobin 0.3 Arterial Blood Date Drawn 09/13/2016 9:51:51 AM Arterial Blood Methemoglobin 0.3 Arterial Blood pCO2 (Temp correct) 48.6 H Arterial Blood pH (Temp corrected) 7.455 H Arterial Blood pO2 (Temp corrected) 126.1 H Blood Gas A-a O2 Differential 30.7 H Blood Gas Actual Respiration Rate 16 Blood Gas Low PEEP Setting 0 Blood Gas Modality VENT - AC Blood Gas Notified Time 09/13/2016 10:05:34 AM Blood Gas Notified Whom JLD Blood Gas Respiration Rate 12.0 Blood Gas Specimen Source Blood arterial Blood Gas Temperature 37.0 Blood Gas Tidal Volume 450.0 FiO2 30.0 Oxyhemoglobin Percent 97.8 Total Hemoglobin 10.3 L Test 09/13/16 13:22 Bedside Glucose 207 Medications Medications Current Medications Ondansetron HCl (Zofran Inj) 4 mg Q6H PRN IV NAUSEA AND/OR VOMITING Last administered on 09/10/16 23:03; Admin Dose 4 MG; Start 09/09/16 at 20:00 Nitroglycerin (Nitroglycerin (Sl Tab) 0.4 Mg) 1 tab Q5M PRN SL CHEST PAIN; Start 09/09/16 at 20:00 Acetaminophen (Tylenol Liquid) 650 mg Q6H PRN PO PAIN LEVEL 1-3 OR FEVER; Start 09/09/16 at 20:00 Morphine Sulfate (morphine) 2 mg Q4H PRN IV PAIN LEVEL 7-10 Last administered on 09/10/16 23:03; Admin Dose 2 MG; Start 09/09/16 at 20:00 Lorazepam (Ativan) 1 mg Q2H PRN IV ANXIETY Last administered on 09/11/16 04:06 ; Admin Dose 1 MG; Start 09/09/16 at 20:00 Glucose (Glutose) 15 gm Q15M PRN PO DECREASED GLUCOSE; Start 09/09/16 at 20:30 Glucose (Glutose) 22.5 gm Q15M PRN PO DECREASED GLUCOSE; Start 09/09/16 at 20: 30 Dextrose (D50w Syringe) 25 ml Q15M PRN IV DECREASED GLUCOSE; Start 09/09/16 at 20:30 Dextrose (D50w Syringe) 50 ml Q15M PRN IV DECREASED GLUCOSE; Start 09/09/16 at 20:30 Glucagon (Glucagen) 1 mg Q15M PRN IM DECREASED GLUCOSE; Start 09/09/16 at 20:30 Glucose (Glutose) 15 gm Q15M PRN BUCCAL DECREASED GLUCOSE; Start 09/09/16 at 20 :30 Famotidine (Pepcid Iv) 20 mg DAILY IV Last administered on 09/13/16 08:00; Admin Dose 20 MG; Start 09/10/16 at 09:00 Docusate Sodium 100 mg 100 mg Q12H PO Last administered on 09/13/16 08:13; Admin Dose 100 MG; Start 09/10/16 at 20:00 Phenylephrine HCl 160 mg/Dextrose 500 ml @ 0 mls/hr TITRATE IV Last administered on 09/11/16 11:02; Admin Dose 28.12 MLS/HR; Start 09/10/16 at 19: 30 Norepinephrine 32 mg/Dextrose 250 ml @ 0.46 mls/hr TITRATE IV Last administered on 09/12/16 10:16; Admin Dose 14.05 MLS/HR; Start 09/10/16 at 22: 00 Midazolam HCl 50 ml @ 1 mls/hr TITRATE IV Last administered on 09/11/16 19:46 ; Admin Dose 2 MLS/HR; Start 09/11/16 at 08:30 Fentanyl (Sublimaze) 100 ml @ 2.5 mls/hr TITRATE IV Last administered on 22:50; Admin Dose 5 MLS/HR; Start 09/11/16 at 08:30 Aspirin 81 mg 81 mg DAILY PO Last administered on 09/13/16 08:13; Admin Dose 81 MG; Start 09/12/16 at 09:00 Sodium Bicarbonate 100 meq/Dextrose 1,000 ml @ 125 mls/hr Q8H IV Last administered on 09/13/16 04:32; Admin Dose 125 MLS/HR; Start 09/11/16 at 13:15 Levetiracetam 1000 mg/Dextrose 110 ml @ 440 mls/hr Q12 IVPB Last administered on 09/13/16 08:13; Admin Dose 440 MLS/HR; Start 09/12/16 at 11:30 Ceftriaxone Sodium (Rocephin) 50 ml @ 100 mls/hr Q24H IVPB Last administered on 09/12/16 17:27; Admin Dose 100 MLS/HR; Start 09/12/16 at 16:00 Insulin Aspart (Novolog Insulin Pen) NOVOLOG *MODERATE* ALGORI... Q4 SC Last administered on 09/13/16t 13:24; Admin Dose 4 UNIT; Start 09/13/16 at 13:00 Procedures Procedures PROCEDURE: CHEST 1VW CLINICAL INDICATION: Status post intubation TECHNIQUE: Single frontal view of the chest was obtained COMPARISON: 09/11/2016 FINDINGS: Stable positioning of right internal jugular central venous catheter, endotracheal tube, nasogastric tube. The cardiac size is normal. Aortic vascular calcifications are demonstrated. There is no pulmonary vascular congestion. The lungs are clear. No consolidation, effusion, or pneumothorax. Mild degenerative changes of the visualized osseous structures are visualized. IMPRESSION: 1. No acute cardiopulmonary process. 2. Atherosclerosis. 3. Stable lines and tubes. RPTAT:PP .Darren Olmos MD, MD Date Time Electronically viewed and signed by .Darren Olmos MD, MD on 09/12/2016 08:14 EMILIANO HENDRICKS Sep 13, 2016 14:45
[2016-09-13] MEDS: SOD CHLORIDE 0.45% 1,000 ML IV SCH ×2 (15:00→19:03)
[2016-09-13] MEDS: CEFTRIAXONE 1 GM/50 ML (PMX) 50 ML IVPB SCH (17:38)
--- NOTE | 2016-09-13 22:17 | CONS ---
Date/Time of Note Date/Time of Note DATE: 09/13/16 TIME: 22:15 Assessment/Plan Assessment/Plan Chief Complaint/Hosp Course IMPRESSION: 1. Patient has acute kidney injury. 2. Patient has acute kidney injury possibly due to severe hypotension and sepsis. 3. Patient has acute tubular necrosis multifactorial. 4.. Patient has leukocytosis, anemia, thrombocytopenia. The patient has Escherichia coli bacteremia, E. coli urinary tract infection. 5: Metabolic acidosis,6 respiratory failure, vent dependent, incomplete database ,7 positive troponin,8 thrombocytopenia. plan iv fluid dec sodium bicarbonate Problems: Consultation Date/Type/Reason Admit Date/Time Sep 09, 2016 at 19:47 Initial Consult Date 09/11/16 Type of Consultation: RENAL Referring Provider: JOAN MALONEY MD 24 HR Interval Summary Constitutional: other (ON VENT) Exam/Review of Systems Vital Signs Vitals Vital Signs Date Time Temp Pulse Resp B/P Pulse Ox O2 Delivery O2 Flow Rate FiO2 09/13/16 21:45 72 14 120/57 100 Mechanical Ventilator 09/13/16 20:00 98.1 09/13/16 17:20 30 09/11/16 08:00 5.0 Intake and Output 09/12/16 09/12/16 09/13/16 15:00 23:00 07:00 Intake Total 1313.46 ml 1462.975 ml 1066.79 ml Output Total 315 ml 320 ml 270 ml Balance 998.46 ml 1142.975 ml 796.79 ml Exam Neck: supple Respiratory: diminished breath sounds Cardiovascular: regular rate and rhythm Gastrointestinal: bowel sounds (+), soft Extremities: edema (TR) Results Result Diagram: 09/13/16 0510 09/13/16 0510 Results 24 hrs Laboratory Tests Test 09/13/16 01:20 09/13/16 05:10 09/13/16 05:36 09/13/16 09:23 Bedside Glucose 201 214 Anion Gap 17 H Band Neutrophils % 8.0 H Blood Urea Nitrogen 55 H Calcium Level 6.8 L Carbon Dioxide Level 33 H Chloride Level 91 L Creatinine 3.91 H Eosinophils # 0.1 Eosinophils % 1.0 Glucose Level 197 Hematocrit 26.8 L Hemoglobin 9.1 L Lactic Acid Level 2.3 H Lymphocytes # 0.2 L Lymphocytes % 2.0 L Mean Corpuscular Hemoglobin 28.9 L Mean Corpuscular Hemoglobin Concent 34.0 Mean Corpuscular Volume 85.1 Mean Platelet Volume 10.5 H Monocytes # 0.6 Monocytes % 5.0 Neutrophils # 9.2 H Neutrophils % 84.0 H Platelet Count 6 #*L Platelet Estimate PLT APPEAR DECREASED Potassium Level 4.0 Red Blood Count 3.15 L Red Cell Distribution Width 14.7 H Sodium Level 137 White Blood Count 11.0 #H Arterial Blood HCO3 33.4 H Arterial Blood Base Excess 8.4 H Arterial Blood Oxygen Saturation 98.4 Jarett Test ACCEPTAB Arterial Blood Gas Puncture Site Left Radial Arterial Blood Carboxyhemoglobin 0.3 Arterial Blood Date Drawn 09/13/2016 9:51:51 AM Arterial Blood Methemoglobin 0.3 Arterial Blood pCO2 (Temp correct) 48.6 H Arterial Blood pH (Temp corrected) 7.455 H Arterial Blood pO2 (Temp corrected) 126.1 H Blood Gas A-a O2 Differential 30.7 H Blood Gas Actual Respiration Rate 16 Blood Gas Low PEEP Setting 0 Blood Gas Modality VENT - AC Blood Gas Notified Time 09/13/2016 10:05:34 AM Blood Gas Notified Whom JLD Blood Gas Respiration Rate 12.0 Blood Gas Specimen Source Blood arterial Blood Gas Temperature 37.0 Blood Gas Tidal Volume 450.0 FiO2 30.0 Oxyhemoglobin Percent 97.8 Total Hemoglobin 10.3 L Test 09/13/16 13:22 09/13/16 17:48 09/13/16 21:34 Bedside Glucose 207 141 123 Medications Medications Current Medications Ondansetron HCl (Zofran Inj) 4 mg Q6H PRN IV NAUSEA AND/OR VOMITING Last administered on 09/10/16 23:03; Admin Dose 4 MG; Start 09/09/16 at 20:00 Nitroglycerin (Nitroglycerin (Sl Tab) 0.4 Mg) 1 tab Q5M PRN SL CHEST PAIN; Start 09/09/16 at 20:00 Acetaminophen (Tylenol Liquid) 650 mg Q6H PRN PO PAIN LEVEL 1-3 OR FEVER; Start 09/09/16 at 20:00 Morphine Sulfate (morphine) 2 mg Q4H PRN IV PAIN LEVEL 7-10 Last administered on 09/10/16 23:03; Admin Dose 2 MG; Start 09/09/16 at 20:00 Lorazepam (Ativan) 1 mg Q2H PRN IV ANXIETY Last administered on 09/11/16 04:06 ; Admin Dose 1 MG; Start 09/09/16 at 20:00 Glucose (Glutose) 15 gm Q15M PRN PO DECREASED GLUCOSE; Start 09/09/16 at 20:30 Glucose (Glutose) 22.5 gm Q15M PRN PO DECREASED GLUCOSE; Start 09/09/16 at 20: 30 Dextrose (D50w Syringe) 25 ml Q15M PRN IV DECREASED GLUCOSE; Start 09/09/16 at 20:30 Dextrose (D50w Syringe) 50 ml Q15M PRN IV DECREASED GLUCOSE; Start 09/09/16 at 20:30 Glucagon (Glucagen) 1 mg Q15M PRN IM DECREASED GLUCOSE; Start 09/09/16 at 20:30 Glucose (Glutose) 15 gm Q15M PRN BUCCAL DECREASED GLUCOSE; Start 09/09/16 at 20 :30 Famotidine (Pepcid Iv) 20 mg DAILY IV Last administered on 09/13/16 08:00; Admin Dose 20 MG; Start 09/10/16 at 09:00 Docusate Sodium 100 mg 100 mg Q12H PO Last administered on 09/13/16 08:13; Admin Dose 100 MG; Start 09/10/16 at 20:00 Phenylephrine HCl 160 mg/Dextrose 500 ml @ 0 mls/hr TITRATE IV Last administered on 09/11/16 11:02; Admin Dose 28.12 MLS/HR; Start 09/10/16 at 19: 30 Norepinephrine 32 mg/Dextrose 250 ml @ 0.46 mls/hr TITRATE IV Last administered on 09/12/16 10:16; Admin Dose 14.05 MLS/HR; Start 09/10/16 at 22: 00 Midazolam HCl 50 ml @ 1 mls/hr TITRATE IV Last administered on 09/11/16 19:46 ; Admin Dose 2 MLS/HR; Start 09/11/16 at 08:30 Fentanyl (Sublimaze) 100 ml @ 2.5 mls/hr TITRATE IV Last administered on 22:50; Admin Dose 5 MLS/HR; Start 09/11/16 at 08:30 Aspirin 81 mg 81 mg DAILY PO Last administered on 09/13/16 08:13; Admin Dose 81 MG; Start 09/12/16 at 09:00 Levetiracetam 1000 mg/Dextrose 110 ml @ 440 mls/hr Q12 IVPB Last administered on 09/13/16 21:30; Admin Dose 440 MLS/HR; Start 09/12/16 at 11:30 Ceftriaxone Sodium (Rocephin) 50 ml @ 100 mls/hr Q24H IVPB Last administered on 09/13/16 17:38; Admin Dose 100 MLS/HR; Start 09/12/16 at 16:00 Insulin Aspart NOVOLOG *MODERATE* ALGORI... Q4 SC Last administered on 13:24; Admin Dose 4 UNIT; Start 09/13/16 at 13:00 Sodium Chloride (1/2 NS) 1,000 ml @ 125 mls/hr Q8H IV Last administered on 19:03; Admin Dose 125 MLS/HR; Start 09/13/16 at 15:00 QUITA SCHOFIELD MD Sep 13, 2016 22:17
--- NOTE | 2016-09-13 22:51 | CONS ---
Date/Time of Note Date/Time of Note DATE: 09/13/16 TIME: 22:32 Assessment/Plan Assessment/Plan Chief Complaint/Hosp Course IMPRESSION: thrombocytopenia in pt with severe sepsis, exposed to multiple meds with pos thrombocytopenic effect, including VANCO, ZOSYN, HEPARIN,CEFAZOLIN NO EVIDENCE DIC s/p FFP yesterday and platelet transfusion today cont to monitor blood count closely transfuse [place] [id number], considering severe sepsis check HIPA Leukocytosis. REACTIVE MONITOR Anemia. COMPLETE W-UP Severe Sepsis with septic shock 08/22 Ecoli UTI /Bacteremia Acute renal failure - / to ATN from sepsis Type II DM - Hyperglycemic on D5W Metabolic / Lactic acidosis 08/22 #1 Acute resp failure now ventilator dependent NSTEMI versus demand ischemia Positive troponin, assess significance, assess for true acute coronary syndrome. Metabolic acidosis respiratory failure, vent dependent incomplete database Thank you for allowing me to take part in the care of this patient. I will continue to follow along very closely with you. Further recommendations will be made as the patient progresses through her inpatient hospital clinical course. Problems: Consultation Date/Type/Reason Admit Date/Time Sep 09, 2016 at 19:47 Date of Consultation: Sep 13, 2016 Type of Consultation: HEMEON Reason for Consultation THROMBOCYTOPENIA Referring Provider: EMILIANO HENDRICKS of Present Illness Ms. Juarez is a 75-year-old female with a history of diabetes mellitus, chronic pain syndrome who initially presented with feelings of generalized weakness, decreased urine output, chills, mild flank pain. Upon arrival in the emergency department, temperature 98.8, blood pressure 88/49, pulse 68, respiratory rate 22, saturating 97%. The patient's labs revealed sodium 141, potassium 3.7, creatinine 1.58, BUN 23. Lactic acid of 9.1. Troponin negative. White blood cell count 23.4, hemoglobin 12.6, platelet count of 176. ABG revealing a pH of 7.253, a PaO2 of 514, a pCO2 of 32.2, INR 1.1. UA positive. The patient underwent a renal ultrasound revealing mild right-sided hydronephrosis. No renal calculi, apparent wall thickening, urinary bladder, possibly due to urinary distention and a chest x-ray that revealed calcification of thoracic aorta. No evidence of active cardiopulmonary disease. The patient's electrocardiogram revealed a rhythm most probably consistent with sinus rhythm with first degree AV block versus accelerated junctional rhythm at a rate of 89, normal axis, normal intervals with lateral biphasic T-wave abnormalities. The patient subsequently required BiPAP respiratory support and emergent intubation and has now been admitted to the ICU where she remains intubated on multiple pressor support. SHE WAS NOTED TO HAVE PROGRESSIVE THROMBOCYTOPENIA AND I WAS ASKED TO [facility] NOTE THAT PT IS CRITICALLY ILL WITH SEVERE SEPSIS , IN ICU, ON ATB HER PLATELET COUNT WAS N ON ADMISSION AND IT RAPIDLY DECREASED TO 6 TODAY PER RN- NO ACTIVE BLEEDING NOTED PAST MEDICAL HISTORY: As above in HPI. MEDICATIONS CURRENTLY IN HOSPITAL: 1. Aspirin 81 mg daily. 2. Sodium bicarbonate 120 mg IV q.8h. 3. Zosyn IV q.6h. 4. Midazolam. 5. Fentanyl. 6. Vancomycin. 7. Levophed pressure support. 8. Albumin IV q.8h. 9. Michael-Synephrine pressor support. 10. Xopenex. 11. Pepcid 20 mg IV daily. 12. Insulin sliding scale. ALLERGIES: NO KNOWN DRUG ALLERGIES. SOCIAL HISTORY: No tobacco, ETOH or illicit drug use. FAMILY HISTORY: No history of sudden cardiac or early CAD. REVIEW OF SYSTEMS: As above in HPI. CONSTITUTIONAL: No current fevers. PULMONARY: Respiratory failure and subsequent intubation. GASTROINTESTINAL: No current nausea or vomiting: GENITOURINARY: Hydroureteronephrosis on renal ultrasound, renal failure. PSYCHIATRIC: No documented psychiatric history. NEUROLOGIC: No documented history of CVA. ENDOCRINE: Diabetes mellitus. Constitutional: other (ON VENT) Psychological: no complaints Past Medical History Medical History: diabetes Social History Alcohol Use: none Smoking Status: Former smoker Drug Use: none Exam/Review of Systems Vital Signs Vitals Vital Signs Date Time Temp Pulse Resp B/P Pulse Ox O2 Delivery O2 Flow Rate FiO2 09/13/16 21:45 72 14 120/57 100 Mechanical Ventilator 09/13/16 20:15 30 09/13/16 20:00 98.1 09/11/16 08:00 5.0 Intake and Output 09/12/16 09/12/16 09/13/16 15:00 23:00 07:00 Intake Total 1313.46 ml 1462.975 ml 1066.79 ml Output Total 315 ml 320 ml 270 ml Balance 998.46 ml 1142.975 ml 796.79 ml Exam PHYSICAL EXAMINATION: GENERAL: The patient is sedated, intubated. NECK: JVP of approximately 9 cm of water. CHEST: Upper airway sounds are rhonchorous sounds. HEART: Regular rate and rhythm. Normal S1, increased S2, 1/6 systolic murmur, nondisplaced PMI. ABDOMEN: Positive bowel sounds, soft. EXTREMITIES: No pitting edema, 1+ pulses bilaterally, posterior tibial. Results Result Diagram: 09/13/16 0510 09/13/16 0510 Results 24 hrs Laboratory Tests Test 09/13/16 01:20 09/13/16 05:10 09/13/16 05:36 09/13/16 09:23 Bedside Glucose 201 214 Anion Gap 17 H Band Neutrophils % 8.0 H Blood Urea Nitrogen 55 H Calcium Level 6.8 L Carbon Dioxide Level 33 H Chloride Level 91 L Creatinine 3.91 H Eosinophils # 0.1 Eosinophils % 1.0 Glucose Level 197 Hematocrit 26.8 L Hemoglobin 9.1 L Lactic Acid Level 2.3 H Lymphocytes # 0.2 L Lymphocytes % 2.0 L Mean Corpuscular Hemoglobin 28.9 L Mean Corpuscular Hemoglobin Concent 34.0 Mean Corpuscular Volume 85.1 Mean Platelet Volume 10.5 H Monocytes # 0.6 Monocytes % 5.0 Neutrophils # 9.2 H Neutrophils % 84.0 H Platelet Count 6 #*L Platelet Estimate PLT APPEAR DECREASED Potassium Level 4.0 Red Blood Count 3.15 L Red Cell Distribution Width 14.7 H Sodium Level 137 White Blood Count 11.0 #H Arterial Blood HCO3 33.4 H Arterial Blood Base Excess 8.4 H Arterial Blood Oxygen Saturation 98.4 Jarett Test ACCEPTAB Arterial Blood Gas Puncture Site Left Radial Arterial Blood Carboxyhemoglobin 0.3 Arterial Blood Date Drawn 09/13/2016 9:51:51 AM Arterial Blood Methemoglobin 0.3 Arterial Blood pCO2 (Temp correct) 48.6 H Arterial Blood pH (Temp corrected) 7.455 H Arterial Blood pO2 (Temp corrected) 126.1 H Blood Gas A-a O2 Differential 30.7 H Blood Gas Actual Respiration Rate 16 Blood Gas Low PEEP Setting 0 Blood Gas Modality VENT - AC Blood Gas Notified Time 09/13/2016 10:05:34 AM Blood Gas Notified Whom JLD Blood Gas Respiration Rate 12.0 Blood Gas Specimen Source Blood arterial Blood Gas Temperature 37.0 Blood Gas Tidal Volume 450.0 FiO2 30.0 Oxyhemoglobin Percent 97.8 Total Hemoglobin 10.3 L Test 09/13/16 13:22 09/13/16 17:48 09/13/16 21:34 Bedside Glucose 207 141 123 Medications Medications Current Medications Ondansetron HCl (Zofran Inj) 4 mg Q6H PRN IV NAUSEA AND/OR VOMITING Last administered on 09/10/16 23:03; Admin Dose 4 MG; Start 09/09/16 at 20:00 Nitroglycerin (Nitroglycerin (Sl Tab) 0.4 Mg) 1 tab Q5M PRN SL CHEST PAIN; Start 09/09/16 at 20:00 Acetaminophen (Tylenol Liquid) 650 mg Q6H PRN PO PAIN LEVEL 1-3 OR FEVER; Start 09/09/16 at 20:00 Morphine Sulfate (morphine) 2 mg Q4H PRN IV PAIN LEVEL 7-10 Last administered on 09/10/16 23:03; Admin Dose 2 MG; Start 09/09/16 at 20:00 Lorazepam (Ativan) 1 mg Q2H PRN IV ANXIETY Last administered on 09/11/16 04:06 ; Admin Dose 1 MG; Start 09/09/16 at 20:00 Glucose (Glutose) 15 gm Q15M PRN PO DECREASED GLUCOSE; Start 09/09/16 at 20:30 Glucose (Glutose) 22.5 gm Q15M PRN PO DECREASED GLUCOSE; Start 09/09/16 at 20: 30 Dextrose (D50w Syringe) 25 ml Q15M PRN IV DECREASED GLUCOSE; Start 09/09/16 at 20:30 Dextrose (D50w Syringe) 50 ml Q15M PRN IV DECREASED GLUCOSE; Start 09/09/16 at 20:30 Glucagon (Glucagen) 1 mg Q15M PRN IM DECREASED GLUCOSE; Start 09/09/16 at 20:30 Glucose (Glutose) 15 gm Q15M PRN BUCCAL DECREASED GLUCOSE; Start 09/09/16 at 20 :30 Famotidine (Pepcid Iv) 20 mg DAILY IV Last administered on 09/13/16 08:00; Admin Dose 20 MG; Start 09/10/16 at 09:00 Docusate Sodium 100 mg 100 mg Q12H PO Last administered on 09/13/16 08:13; Admin Dose 100 MG; Start 09/10/16 at 20:00 Phenylephrine HCl 160 mg/Dextrose 500 ml @ 0 mls/hr TITRATE IV Last administered on 09/11/16 11:02; Admin Dose 28.12 MLS/HR; Start 09/10/16 at 19: 30 Norepinephrine 32 mg/Dextrose 250 ml @ 0.46 mls/hr TITRATE IV Last administered on 09/12/16 10:16; Admin Dose 14.05 MLS/HR; Start 09/10/16 at 22: 00 Midazolam HCl 50 ml @ 1 mls/hr TITRATE IV Last administered on 09/11/16 19:46 ; Admin Dose 2 MLS/HR; Start 09/11/16 at 08:30 Fentanyl (Sublimaze) 100 ml @ 2.5 mls/hr TITRATE IV Last administered on 22:50; Admin Dose 5 MLS/HR; Start 09/11/16 at 08:30 Aspirin 81 mg 81 mg DAILY PO Last administered on 09/13/16 08:13; Admin Dose 81 MG; Start 09/12/16 at 09:00 Levetiracetam 1000 mg/Dextrose 110 ml @ 440 mls/hr Q12 IVPB Last administered on 09/13/16 21:30; Admin Dose 440 MLS/HR; Start 09/12/16 at 11:30 Ceftriaxone Sodium (Rocephin) 50 ml @ 100 mls/hr Q24H IVPB Last administered on 09/13/16 17:38; Admin Dose 100 MLS/HR; Start 09/12/16 at 16:00 Insulin Aspart NOVOLOG *MODERATE* ALGORI... Q4 SC Last administered on 13:24; Admin Dose 4 UNIT; Start 09/13/16 at 13:00 Sodium Chloride (1/2 NS) 1,000 ml @ 125 mls/hr Q8H IV Last administered on 19:03; Admin Dose 125 MLS/HR; Start 09/13/16 at 15:00 JEFF FRANK MD Sep 13, 2016 22:49
[2016-09-13 23:16] LABS: HEPARIN INDUCED PLATELET AB NEGATIVE (NEGATIVE)
[2016-09-14] VITALS (93 sets, daily range): BP systolic 97–141; BP diastolic 43–78; PULSE 71–83; RESP 10–24
[2016-09-14] MEDS: INSULIN ASPART [NOVOLOG] 3 ML PEN SC SCH ×6 (01:00→20:40)
[2016-09-14] MEDS: SOD CHLORIDE 0.45% 1,000 ML IV SCH ×3 (03:46→22:03)
[2016-09-14 04:34] LABS: ADD SCAN DIFF NO
[2016-09-14 04:43] LABS: ABNORMAL IP MESSAGE 1; BASOPHILS % 0.3 % (0.0-2.0); EOSINOPHILS # 0.1 10^3/ul (0.0-0.5); HEMATOCRIT 25.9 % (37.0-47.0); HEMOGLOBIN 8.6 g/dl (12.0-16.0); LYMPHOCYTES # 0.9 10^3/ul (0.8-2.9); LYMPHOCYTES % 7.3 % (15.0-51.0); MEAN CORPUSCULAR HEMOGLOBIN 28.4 pg (29.0-33.0); MEAN CORPUSCULAR HGB CONC 33.2 g/dl (32.0-37.0); MEAN CORPUSCULAR VOLUME 85.5 fl (82.0-101.0); MEAN PLATELET VOLUME 11.5 fl (7.4-10.4); MONOCYTE # 0.7 10^3/ul (0.3-0.9); MONOCYTES % 5.7 % (0.0-11.0); NEUTROPHIL # 9.9 10^3/ul (1.6-7.5); PLATELET COUNT 33 10^3/UL (140-415); RED BLOOD COUNT 3.03 10^6/ul (4.20-5.40); RED CELL DISTRIBUTION WIDTH 14.7 % (11.5-14.5); WHITE BLOOD COUNT 11.7 10^3/ul (4.8-10.8)
[2016-09-14 04:46] LABS: ALBUMIN 2.4 g/dl (3.3-4.9)
[2016-09-14 04:49] LABS: IRON 15 ug/dl (35-150)
[2016-09-14 04:49] LABS: BILIRUBIN,INDIRECT 0.1 mg/dl (0-1.1); BILIRUBIN,TOTAL 0.1 mg/dl (0.2-1.3); TOTAL PROTEIN 4.9 g/dl (6.1-8.1)
[2016-09-14 04:50] LABS: URIC ACID 6.4 mg/dl (3.1-7.9)
[2016-09-14 04:59] LABS: RETICULOCYTE COUNT % 1.9 % (0.5-1.5)
[2016-09-14 04:59] LABS: TOTAL IRON BINDING CAPACITY 218 ug/dl (241-421)
[2016-09-14 05:20] LABS: THYROID STIMULATING HORMONE 2.78 MIU/L (0.465-4.680)
[2016-09-14 05:22] LABS: POTASSIUM 3.6 mmol/L (3.5-5.1)
[2016-09-14 05:24] LABS: CREATININE 3.53 mg/dl (0.44-1.00)
[2016-09-14 05:25] LABS: CALCIUM 7.5 mg/dl (8.4-10.2)
[2016-09-14 06:46] LABS: FOLATE 7.8 ng/ml (2.8-20.0)
--- NOTE | 2016-09-14 08:45 | PN ---
Date/Time of Note Date/Time of Note DATE: 09/14/16 TIME: 08:44 Assessment/Plan VTE Prophylaxis VTE Prophylaxis Intervention: SCD's Lines/Catheters IV Catheter Type (from Nrs): Central Line Central line still needed: Yes Urinary Cath still in place: Yes Reason Cath still needed: other (indicate) Assessment/Plan Assessment/Plan 75 yo female with a past medical history of type II DM, chronic pain who complains of weakness and decreased urinary output for the last several days. 1. Severe Sepsis with septic shock 2/2 Ecoli UTI /Bacteremia 2. Acute renal failure - 2/2 to ATN from sepsis * Patient seems to be in recovery phase now. 3. Type II DM - Hyperglycemic on D5W 4. Metabolic / Lactic acidosis 2/2 #1 5. Acute resp failure now ventilator dependent 6. NSTEMI versus demand ischemia 7. Probable DIC with thrombocytopenia s/p FFP yesterday PLAN: * Continue ICU care / Continue to wean pressors * Continue Vent mgt / appreciate pulm input * Continue broad spectrum abx / Appreciate ID consult * Daily aspirin / no BB or Acei for now 2/2 hypotension /Appreciate Cardiology consult * SSI only for now till on some kind of diet * D/C D5 and Bicarb if ok with nephro / serial labs * Appreciate all consults PROPHYLAXIS: Pepcid / SCDS CRITICAL CARE TIME: >35 mins Subjective 24 Hr Interval Summary Free Text/Dictation Patient seen and examined. Still not fully awake but grimaces and moves in response to stimulation remains intubated and off sedation, Subjective hx not possible: pt critical status Exam/Review of Systems Vital Signs Vitals Vital Signs Date Time Temp Pulse Resp B/P Pulse Ox O2 Delivery O2 Flow Rate FiO2 09/14/16 07:44 78 13 99/46 99 Mechanical Ventilator 09/14/16 07:30 30 09/14/16 04:00 98.4 09/11/16 08:00 5.0 Intake and Output 09/13/16 09/13/16 09/14/16 15:00 23:00 07:00 Intake Total 60 ml 1610 ml 875.93 ml Output Total 560 ml 380 ml 400 ml Balance -500 ml 1230 ml 475.93 ml Exam Constitutional: frail, No alert, No oriented Head: normocephalic Eyes: PERRL, icteric ENMT: intubated Respiratory: clear to auscultation, diminished breath sounds Cardiovascular: regular rate and rhythm, No murmurs/extra sounds Gastrointestinal: bowel sounds, distended, other (large periumbilical hernia), soft Genitourinary - Female: other (montoya draining clear urine) Extremities: No edema Neurological: No nl mental status Results Result Diagram: 09/14/16 0410 09/14/16 0410 Results 24 hrs Laboratory Tests Test 09/13/16 09:23 09/13/16 13:22 09/13/16 17:48 09/13/16 21:34 Arterial Blood HCO3 33.4 H Arterial Blood Base Excess 8.4 H Arterial Blood Oxygen Saturation 98.4 Jarett Test ACCEPTAB Arterial Blood Gas Puncture Site Left Radial Arterial Blood Carboxyhemoglobin 0.3 Arterial Blood Date Drawn 09/13/2016 9:51:51 AM Arterial Blood Methemoglobin 0.3 Arterial Blood pCO2 (Temp correct) 48.6 H Arterial Blood pH (Temp corrected) 7.455 H Arterial Blood pO2 (Temp corrected) 126.1 H Blood Gas A-a O2 Differential 30.7 H Blood Gas Actual Respiration Rate 16 Blood Gas Low PEEP Setting 0 Blood Gas Modality VENT - AC Blood Gas Notified Time 09/13/2016 10:05:34 AM Blood Gas Notified Whom JLD Blood Gas Respiration Rate 12.0 Blood Gas Specimen Source Blood arterial Blood Gas Temperature 37.0 Blood Gas Tidal Volume 450.0 FiO2 30.0 Oxyhemoglobin Percent 97.8 Total Hemoglobin 10.3 L Bedside Glucose 207 141 123 Test 09/14/16 01:20 09/14/16 04:10 09/14/16 05:00 09/14/16 05:08 Bedside Glucose 130 117 Absolute Reticulocyte Count 0.061 Alanine Aminotransferase (ALT/SGPT) 40 Albumin 2.4 L Alkaline Phosphatase 186 H Anion Gap 14 Aspartate Amino Transf (AST/SGOT) 35 Basophils # 0.0 Basophils % 0.3 Blood Urea Nitrogen 55 H Calcium Level 7.5 L Carbon Dioxide Level 34 H Carcinoembryonic Antigen Pending Chloride Level 92 L Creatinine 3.53 H Direct Bilirubin 0.00 Eosinophils # 0.1 Eosinophils % 1.0 Ferritin 146.0 Folate 7.8 Glucose Level 114 # Hematocrit 25.9 L Hemoglobin 8.6 L Indirect Bilirubin 0.1 Lactate Dehydrogenase 420 Lactic Acid Level 1.1 Lymphocytes # 0.9 Lymphocytes % 7.3 L Mean Corpuscular Hemoglobin 28.4 L Mean Corpuscular Hemoglobin Concent 33.2 Mean Corpuscular Volume 85.5 Mean Platelet Volume 11.5 H Monocytes # 0.7 Monocytes % 5.7 Neutrophils # 9.9 H Neutrophils % 85.0 H Nucleated Red Blood Cells # 0.0 Nucleated Red Blood Cells % 0.0 Percent Reticulocyte Count 1.9 H Platelet Count 33 #L Potassium Level 3.6 Red Blood Count 3.03 L Red Cell Distribution Width 14.7 H Sodium Level 136 Thyroid Stimulating Hormone (TSH) 2.780 Total Bilirubin 0.1 L Total Protein 4.9 L Uric Acid 6.4 White Blood Count 11.7 H Iron Level 15 L Percent Iron Saturation 7 L Total Iron Binding Capacity 218 L Medications Medications Current Medications Ondansetron HCl (Zofran Inj) 4 mg Q6H PRN IV NAUSEA AND/OR VOMITING Last administered on 09/10/16 23:03; Admin Dose 4 MG; Start 09/09/16 at 20:00 Nitroglycerin (Nitroglycerin (Sl Tab) 0.4 Mg) 1 tab Q5M PRN SL CHEST PAIN; Start 09/09/16 at 20:00 Acetaminophen (Tylenol Liquid) 650 mg Q6H PRN PO PAIN LEVEL 1-3 OR FEVER; Start 09/09/16 at 20:00 Morphine Sulfate (morphine) 2 mg Q4H PRN IV PAIN LEVEL 7-10 Last administered on 09/10/16 23:03; Admin Dose 2 MG; Start 09/09/16 at 20:00 Lorazepam (Ativan) 1 mg Q2H PRN IV ANXIETY Last administered on 09/11/16 04:06 ; Admin Dose 1 MG; Start 09/09/16 at 20:00 Glucose (Glutose) 15 gm Q15M PRN PO DECREASED GLUCOSE; Start 09/09/16 at 20:30 Glucose (Glutose) 22.5 gm Q15M PRN PO DECREASED GLUCOSE; Start 09/09/16 at 20: 30 Dextrose (D50w Syringe) 25 ml Q15M PRN IV DECREASED GLUCOSE; Start 09/09/16 at 20:30 Dextrose (D50w Syringe) 50 ml Q15M PRN IV DECREASED GLUCOSE; Start 09/09/16 at 20:30 Glucagon (Glucagen) 1 mg Q15M PRN IM DECREASED GLUCOSE; Start 09/09/16 at 20:30 Glucose (Glutose) 15 gm Q15M PRN BUCCAL DECREASED GLUCOSE; Start 09/09/16 at 20 :30 Famotidine (Pepcid Iv) 20 mg DAILY IV Last administered on 09/13/16 08:00; Admin Dose 20 MG; Start 09/10/16 at 09:00 Docusate Sodium 100 mg 100 mg Q12H PO Last administered on 09/13/16 08:13; Admin Dose 100 MG; Start 09/10/16 at 20:00 Phenylephrine HCl 160 mg/Dextrose 500 ml @ 0 mls/hr TITRATE IV Last administered on 09/11/16 11:02; Admin Dose 28.12 MLS/HR; Start 09/10/16 at 19: 30 Norepinephrine 32 mg/Dextrose 250 ml @ 0.46 mls/hr TITRATE IV Last administered on 09/12/16 10:16; Admin Dose 14.05 MLS/HR; Start 09/10/16 at 22: 00 Midazolam HCl 50 ml @ 1 mls/hr TITRATE IV Last administered on 09/11/16 19:46 ; Admin Dose 2 MLS/HR; Start 09/11/16 at 08:30 Fentanyl (Sublimaze) 100 ml @ 2.5 mls/hr TITRATE IV Last administered on 22:50; Admin Dose 5 MLS/HR; Start 09/11/16 at 08:30 Aspirin 81 mg 81 mg DAILY PO Last administered on 09/13/16 08:13; Admin Dose 81 MG; Start 09/12/16 at 09:00 Levetiracetam 1000 mg/Dextrose 110 ml @ 440 mls/hr Q12 IVPB Last administered on 09/13/16 21:30; Admin Dose 440 MLS/HR; Start 09/12/16 at 11:30 Ceftriaxone Sodium (Rocephin) 50 ml @ 100 mls/hr Q24H IVPB Last administered on 09/13/16 17:38; Admin Dose 100 MLS/HR; Start 09/12/16 at 16:00 Insulin Aspart NOVOLOG *MODERATE* ALGORI... Q4 SC Last administered on 13:24; Admin Dose 4 UNIT; Start 09/13/16 at 13:00 Sodium Chloride (1/2 NS) 1,000 ml @ 125 mls/hr Q8H IV Last administered on 03:46; Admin Dose 125 MLS/HR; Start 09/13/16 at 15:00 EMILIANO HENDRICKS Sep 14, 2016 08:45
--- NOTE | 2016-09-14 09:15 | CONS ---
Date/Time of Note Date/Time of Note DATE: 09/14/16 TIME: 09:15 Assessment/Plan Assessment/Plan Chief Complaint/Hosp Course ID PROGRESS NOTE CURRENT ABX=> Ceftriaxone s/p Vanco IV/Zosyn 24H INTERVAL SUMMARY * Afebrile, VSS, NAD, noncommunicative on the Vent * Family member present, given update on ABX Rx for septicemia * CXR = unremarkable for acute process * CT Brain = age related changes: Mild periventricular white matter hypodensities are nonspecific but likely reflect chronic microvascular ischemic change. PHYSICAL EXAMINATION: GENERAL: VSS, NAD HEENT: ETT-> Secure to Vent, NGT -> Secure NECK: Supple, trachea midline. CHEST: Rise symmetrical, vented HEART: Pulse RRR ABDOMEN: Soft, benign EXTREMITIES: Warm ID ASSESSMENT 75 yo F seen in ICU with: 1. Severe GNR E.Coli septicemia with shock and multisystem organ failure. * GNR E/.Coli (+)BCx 09/09/16-> Repeat BCx 09/12/16 (-) 2. Complicated polymicrobial GNR Escherichia coli urinary tract infection w/ bacteremia 09/09/16 URINE CULTURE Final Organism 1 ESCHERICHIA COLI COLONY COUNT >100,000 CFU/ml Organism 2 ESCHERICHIA COLI#2 COLONY COUNT >100,000 CFU/ml 3. Acute respiratory failure. 4. Acute encephalopathy. 5. Acute renal failure with metabolic acidosis. 6. Coagulopathy with anemia and thrombocytopenia, possible DIC. (-)MRSA Nares INVASIVES: PIV, R-IJ TLC, ETT, NGT, FC ABX ALLERGY: KNDA CURRENT ABX: =>Ceftriaxone s/p Vanco IV/Zosyn ID RECOMMENDATIONS 1. Continue current ABX 2. F/U final result BCx (-)48 hours . Problems: Consultation Date/Type/Reason Admit Date/Time Sep 09, 2016 at 19:47 Initial Consult Date 09/13/16 Type of Consultation: ID Referring Provider: EMILIANO HENDRICKS Exam/Review of Systems Vital Signs Vitals Vital Signs Date Time Temp Pulse Resp B/P Pulse Ox O2 Delivery O2 Flow Rate FiO2 09/14/16 07:44 78 13 99/46 99 Mechanical Ventilator 09/14/16 07:30 30 09/14/16 04:00 98.4 09/11/16 08:00 5.0 Intake and Output 09/13/16 09/13/16 09/14/16 15:00 23:00 07:00 Intake Total 60 ml 1610 ml 875.93 ml Output Total 560 ml 380 ml 400 ml Balance -500 ml 1230 ml 475.93 ml Results Result Diagram: 09/14/16 0410 09/14/16 0410 Results 24 hrs Laboratory Tests Test 09/13/16 09:23 09/13/16 13:22 09/13/16 17:48 09/13/16 21:34 Arterial Blood HCO3 33.4 H Arterial Blood Base Excess 8.4 H Arterial Blood Oxygen Saturation 98.4 Jarett Test ACCEPTAB Arterial Blood Gas Puncture Site Left Radial Arterial Blood Carboxyhemoglobin 0.3 Arterial Blood Date Drawn 09/13/2016 9:51:51 AM Arterial Blood Methemoglobin 0.3 Arterial Blood pCO2 (Temp correct) 48.6 H Arterial Blood pH (Temp corrected) 7.455 H Arterial Blood pO2 (Temp corrected) 126.1 H Blood Gas A-a O2 Differential 30.7 H Blood Gas Actual Respiration Rate 16 Blood Gas Low PEEP Setting 0 Blood Gas Modality VENT - AC Blood Gas Notified Time 09/13/2016 10:05:34 AM Blood Gas Notified Whom JLD Blood Gas Respiration Rate 12.0 Blood Gas Specimen Source Blood arterial Blood Gas Temperature 37.0 Blood Gas Tidal Volume 450.0 FiO2 30.0 Oxyhemoglobin Percent 97.8 Total Hemoglobin 10.3 L Bedside Glucose 207 141 123 Test 09/14/16 01:20 09/14/16 04:10 09/14/16 05:00 09/14/16 05:08 Bedside Glucose 130 117 Absolute Reticulocyte Count 0.061 Alanine Aminotransferase (ALT/SGPT) 40 Albumin 2.4 L Alkaline Phosphatase 186 H Anion Gap 14 Aspartate Amino Transf (AST/SGOT) 35 Basophils # 0.0 Basophils % 0.3 Blood Urea Nitrogen 55 H Calcium Level 7.5 L Carbon Dioxide Level 34 H Carcinoembryonic Antigen Pending Chloride Level 92 L Creatinine 3.53 H Direct Bilirubin 0.00 Eosinophils # 0.1 Eosinophils % 1.0 Erythrocyte Sedimentation Rate 48 H Ferritin 146.0 Folate 7.8 Glucose Level 114 # Hematocrit 25.9 L Hemoglobin 8.6 L Indirect Bilirubin 0.1 Lactate Dehydrogenase 420 Lactic Acid Level 1.1 Lymphocytes # 0.9 Lymphocytes % 7.3 L Mean Corpuscular Hemoglobin 28.4 L Mean Corpuscular Hemoglobin Concent 33.2 Mean Corpuscular Volume 85.5 Mean Platelet Volume 11.5 H Monocytes # 0.7 Monocytes % 5.7 Neutrophils # 9.9 H Neutrophils % 85.0 H Nucleated Red Blood Cells # 0.0 Nucleated Red Blood Cells % 0.0 Percent Reticulocyte Count 1.9 H Platelet Count 33 #L Potassium Level 3.6 Red Blood Count 3.03 L Red Cell Distribution Width 14.7 H Sodium Level 136 Thyroid Stimulating Hormone (TSH) 2.780 Total Bilirubin 0.1 L Total Protein 4.9 L Uric Acid 6.4 White Blood Count 11.7 H Iron Level 15 L Percent Iron Saturation 7 L Total Iron Binding Capacity 218 L Medications Medications Current Medications Ondansetron HCl (Zofran Inj) 4 mg Q6H PRN IV NAUSEA AND/OR VOMITING Last administered on 09/10/16 23:03; Admin Dose 4 MG; Start 09/09/16 at 20:00 Nitroglycerin (Nitroglycerin (Sl Tab) 0.4 Mg) 1 tab Q5M PRN SL CHEST PAIN; Start 09/09/16 at 20:00 Acetaminophen (Tylenol Liquid) 650 mg Q6H PRN PO PAIN LEVEL 1-3 OR FEVER; Start 09/09/16 at 20:00 Morphine Sulfate (morphine) 2 mg Q4H PRN IV PAIN LEVEL 7-10 Last administered on 09/10/16 23:03; Admin Dose 2 MG; Start 09/09/16 at 20:00 Lorazepam (Ativan) 1 mg Q2H PRN IV ANXIETY Last administered on 09/11/16 04:06 ; Admin Dose 1 MG; Start 09/09/16 at 20:00 Glucose (Glutose) 15 gm Q15M PRN PO DECREASED GLUCOSE; Start 09/09/16 at 20:30 Glucose (Glutose) 22.5 gm Q15M PRN PO DECREASED GLUCOSE; Start 09/09/16 at 20: 30 Dextrose (D50w Syringe) 25 ml Q15M PRN IV DECREASED GLUCOSE; Start 09/09/16 at 20:30 Dextrose (D50w Syringe) 50 ml Q15M PRN IV DECREASED GLUCOSE; Start 09/09/16 at 20:30 Glucagon (Glucagen) 1 mg Q15M PRN IM DECREASED GLUCOSE; Start 09/09/16 at 20:30 Glucose (Glutose) 15 gm Q15M PRN BUCCAL DECREASED GLUCOSE; Start 09/09/16 at 20 :30 Famotidine (Pepcid Iv) 20 mg DAILY IV Last administered on 09/13/16 08:00; Admin Dose 20 MG; Start 09/10/16 at 09:00 Docusate Sodium 100 mg 100 mg Q12H PO Last administered on 09/13/16 08:13; Admin Dose 100 MG; Start 09/10/16 at 20:00 Phenylephrine HCl 160 mg/Dextrose 500 ml @ 0 mls/hr TITRATE IV Last administered on 09/11/16 11:02; Admin Dose 28.12 MLS/HR; Start 09/10/16 at 19: 30 Norepinephrine 32 mg/Dextrose 250 ml @ 0.46 mls/hr TITRATE IV Last administered on 09/12/16 10:16; Admin Dose 14.05 MLS/HR; Start 09/10/16 at 22: 00 Midazolam HCl 50 ml @ 1 mls/hr TITRATE IV Last administered on 09/11/16 19:46 ; Admin Dose 2 MLS/HR; Start 09/11/16 at 08:30 Fentanyl (Sublimaze) 100 ml @ 2.5 mls/hr TITRATE IV Last administered on 22:50; Admin Dose 5 MLS/HR; Start 09/11/16 at 08:30 Aspirin 81 mg 81 mg DAILY PO Last administered on 09/13/16 08:13; Admin Dose 81 MG; Start 09/12/16 at 09:00 Levetiracetam 1000 mg/Dextrose 110 ml @ 440 mls/hr Q12 IVPB Last administered on 09/13/16 21:30; Admin Dose 440 MLS/HR; Start 09/12/16 at 11:30 Ceftriaxone Sodium (Rocephin) 50 ml @ 100 mls/hr Q24H IVPB Last administered on 09/13/16 17:38; Admin Dose 100 MLS/HR; Start 09/12/16 at 16:00 Insulin Aspart NOVOLOG *MODERATE* ALGORI... Q4 SC Last administered on 13:24; Admin Dose 4 UNIT; Start 09/13/16 at 13:00 Sodium Chloride (1/2 NS) 1,000 ml @ 125 mls/hr Q8H IV Last administered on t 03:46; Admin Dose 125 MLS/HR; Start 09/13/16 at 15:00 LEONARDA PIZARRO NP Sep 14, 2016 09:15
--- NOTE | 2016-09-14 09:57 | CONS ---
Date/Time of Note Date/Time of Note DATE: 09/14/16 TIME: 09:53 Assessment/Plan Assessment/Plan Additional Assessment/Plan Ventilator settings; assist control of 12, tidal volume 450, PEEP of 5, 30% FiO2. Next Assessment and recommendations; 1. Patient admitted with severe gram-negative sepsis from E. coli leading to respiratory failure. 2. Acute renal insufficiency with improving serum creatinine. Patient having good urine output as well. 3. Severe thrombocytopenia. The platelet count improved today. Patient also had a CT scan of head done yesterday which is essentially negative. 4. Improving hemodynamics. Patient currently on low-dose Levophed. 5. Interval resolution of severe metabolic acidosis. 6. Severe mental unresponsiveness likely on account of metabolic encephalopathy. 7. Possibly underlying seizures. Patient started on Keppra. Continue current supportive care. Continue current antibiotics. Obtain a follow-up chest x-ray. Weaning from ventilator with depend upon adequate mental status recovery. I did have a detailed discussion with the patient's son at bedside and answered all his questions. Consultation Date/Type/Reason Admit Date/Time Sep 09, 2016 at 19:47 Initial Consult Date 09/11/16 Type of Consultation: Pulmonary/critical care Referring Provider: EMILIANO HENDRICKS 24 HR Interval Summary Free Text/Dictation Patient's condition remains critical. However the patient's hemodynamics are improving and is currently on 4 mics of Levophed. Patient however, remains profoundly unresponsive. General examination; elderly lady, orally intubated, unresponsive. Exam/Review of Systems Vital Signs Vitals Vital Signs Date Time Temp Pulse Resp B/P Pulse Ox O2 Delivery O2 Flow Rate FiO2 09/14/16 07:44 78 13 99/46 99 Mechanical Ventilator 09/14/16 07:30 30 09/14/16 04:00 98.4 09/11/16 08:00 5.0 Intake and Output 09/13/16 09/13/16 09/14/16 15:00 23:00 07:00 Intake Total 60 ml 1610 ml 875.93 ml Output Total 560 ml 380 ml 400 ml Balance -500 ml 1230 ml 475.93 ml Exam H EENT examination; supple neck, no JVD. No lymphadenopathy. Orally intubated. No neck masses. No thyromegaly. No neck bruits. Chest examination; clear to auscultation bilaterally. S1-S2 audible, no murmurs. Regular rhythm. Abdomen examination; soft, nondistended, no organomegaly. Bowel sounds audible. Extremity examination; no peripheral edema. MOLD DESIGNER examination; patient remains unresponsive. Results Result Diagram: 09/14/16 0410 09/14/16 0410 Results 24 hrs Laboratory Tests Test 09/13/16 13:22 09/13/16 17:48 09/13/16 21:34 09/14/16 01:20 Bedside Glucose 207 141 123 130 Test 09/14/16 04:10 09/14/16 05:00 09/14/16 05:08 Absolute Reticulocyte Count 0.061 Alanine Aminotransferase (ALT/SGPT) 40 Albumin 2.4 L Alkaline Phosphatase 186 H Anion Gap 14 Aspartate Amino Transf (AST/SGOT) 35 Basophils # 0.0 Basophils % 0.3 Blood Urea Nitrogen 55 H Calcium Level 7.5 L Carbon Dioxide Level 34 H Carcinoembryonic Antigen Pending Chloride Level 92 L Creatinine 3.53 H Direct Bilirubin 0.00 Eosinophils # 0.1 Eosinophils % 1.0 Erythrocyte Sedimentation Rate 48 H Ferritin 146.0 Folate 7.8 Glucose Level 114 # Hematocrit 25.9 L Hemoglobin 8.6 L Indirect Bilirubin 0.1 Lactate Dehydrogenase 420 Lactic Acid Level 1.1 Lymphocytes # 0.9 Lymphocytes % 7.3 L Mean Corpuscular Hemoglobin 28.4 L Mean Corpuscular Hemoglobin Concent 33.2 Mean Corpuscular Volume 85.5 Mean Platelet Volume 11.5 H Monocytes # 0.7 Monocytes % 5.7 Neutrophils # 9.9 H Neutrophils % 85.0 H Nucleated Red Blood Cells # 0.0 Nucleated Red Blood Cells % 0.0 Percent Reticulocyte Count 1.9 H Platelet Count 33 #L Potassium Level 3.6 Red Blood Count 3.03 L Red Cell Distribution Width 14.7 H Sodium Level 136 Thyroid Stimulating Hormone (TSH) 2.780 Total Bilirubin 0.1 L Total Protein 4.9 L Uric Acid 6.4 White Blood Count 11.7 H Iron Level 15 L Percent Iron Saturation 7 L Total Iron Binding Capacity 218 L Bedside Glucose 117 Medications Medications Current Medications Ondansetron HCl (Zofran Inj) 4 mg Q6H PRN IV NAUSEA AND/OR VOMITING Last administered on 09/10/16t 23:03; Admin Dose 4 MG; Start 09/09/16 at 20:00 Nitroglycerin (Nitroglycerin (Sl Tab) 0.4 Mg) 1 tab Q5M PRN SL CHEST PAIN; Start 09/09/16 at 20:00 Acetaminophen (Tylenol Liquid) 650 mg Q6H PRN PO PAIN LEVEL 1-3 OR FEVER; Start 09/09/16 at 20:00 Morphine Sulfate (morphine) 2 mg Q4H PRN IV PAIN LEVEL 7-10 Last administered on 09/10/16 23:03; Admin Dose 2 MG; Start 09/09/16 at 20:00 Lorazepam (Ativan) 1 mg Q2H PRN IV ANXIETY Last administered on 09/11/16 04:06 ; Admin Dose 1 MG; Start 09/09/16 at 20:00 Glucose (Glutose) 15 gm Q15M PRN PO DECREASED GLUCOSE; Start 09/09/16 at 20:30 Glucose (Glutose) 22.5 gm Q15M PRN PO DECREASED GLUCOSE; Start 09/09/16 at 20: 30 Dextrose (D50w Syringe) 25 ml Q15M PRN IV DECREASED GLUCOSE; Start 09/09/16 at 20:30 Dextrose (D50w Syringe) 50 ml Q15M PRN IV DECREASED GLUCOSE; Start 09/09/16 at 20:30 Glucagon (Glucagen) 1 mg Q15M PRN IM DECREASED GLUCOSE; Start 09/09/16 at 20:30 Glucose (Glutose) 15 gm Q15M PRN BUCCAL DECREASED GLUCOSE; Start 09/09/16 at 20 :30 Famotidine (Pepcid Iv) 20 mg DAILY IV Last administered on 09/13/16 08:00; Admin Dose 20 MG; Start 09/10/16 at 09:00 Docusate Sodium 100 mg 100 mg Q12H PO Last administered on 09/13/16 08:13; Admin Dose 100 MG; Start 09/10/16 at 20:00 Phenylephrine HCl 160 mg/Dextrose 500 ml @ 0 mls/hr TITRATE IV Last administered on 09/11/16 11:02; Admin Dose 28.12 MLS/HR; Start 09/10/16 at 19: 30 Norepinephrine 32 mg/Dextrose 250 ml @ 0.46 mls/hr TITRATE IV Last administered on 09/12/16 10:16; Admin Dose 14.05 MLS/HR; Start 09/10/16 at 22: 00 Midazolam HCl 50 ml @ 1 mls/hr TITRATE IV Last administered on 09/11/16 19:46 ; Admin Dose 2 MLS/HR; Start 09/11/16 at 08:30 Fentanyl (Sublimaze) 100 ml @ 2.5 mls/hr TITRATE IV Last administered on 22:50; Admin Dose 5 MLS/HR; Start 09/11/16 at 08:30 Aspirin 81 mg 81 mg DAILY PO Last administered on 09/13/16 08:13; Admin Dose 81 MG; Start 09/12/16 at 09:00 Levetiracetam 1000 mg/Dextrose 110 ml @ 440 mls/hr Q12 IVPB Last administered on 09/13/16 21:30; Admin Dose 440 MLS/HR; Start 09/12/16 at 11:30 Ceftriaxone Sodium (Rocephin) 50 ml @ 100 mls/hr Q24H IVPB Last administered on 09/13/16 17:38; Admin Dose 100 MLS/HR; Start 09/12/16 at 16:00 Insulin Aspart NOVOLOG *MODERATE* ALGORI... Q4 SC Last administered on 13:24; Admin Dose 4 UNIT; Start 09/13/16 at 13:00 Sodium Chloride (1/2 NS) 1,000 ml @ 125 mls/hr Q8H IV Last administered on 03:46; Admin Dose 125 MLS/HR; Start 09/13/16 at 15:00 DEANNA MONSALVE Sep 14, 2016 09:57
[2016-09-14 09:59] LABS: CARCINOEMBRYONIC ANTIGEN 2.3 ng/ml (0.0-5.0)
[2016-09-14] MEDS: ASPIRIN 81 MG TAB PO SCH (09:59)
[2016-09-14] MEDS: FAMOTIDINE 20 MG INJ IV SCH (09:59)
[2016-09-14] MEDS: LEVETIRACETAM IV 1,000 MG in DEXTROSE 5% 100 ML IVPB SCH ×2 (09:59→20:39)
[2016-09-14] MEDS: DOCUSATE SODIUM 100 MG CAP PO SCH ×2 (10:00→20:39)
--- NOTE | 2016-09-14 12:12 | CONS ---
Date/Time of Note Date/Time of Note DATE: 09/14/16 TIME: 12:12 Assessment/Plan Assessment/Plan Chief Complaint/Hosp Course IMPRESSION: thrombocytopenia in pt with severe sepsis, exposed to multiple meds with pos thrombocytopenic effect, including VANCO, ZOSYN, HEPARIN,CEFAZOLIN NO EVIDENCE DIC s/p FFP yesterday and platelet transfusion today cont to monitor blood count closely transfuse if platelet count less [place] [id number], considering severe sepsis check HIPA Leukocytosis. REACTIVE MONITOR Anemia. C/W ACD MONITOR BLOOD COUNT CLOSELY Severe Sepsis with septic shock / Ecoli UTI /Bacteremia Acute renal failure - / to ATN from sepsis Type II DM - Hyperglycemic on D5W Metabolic / Lactic acidosis / #1 Acute resp failure now ventilator dependent NSTEMI versus demand ischemia Positive troponin, assess significance, assess for true acute coronary syndrome. Metabolic acidosis respiratory failure, vent dependent incomplete database Thank you for allowing me to take part in the care of this patient. I will continue to follow along very closely with you. Further recommendations will be made as the patient progresses through her inpatient hospital clinical course. Problems: Consultation Date/Type/Reason Admit Date/Time Sep 09, 2016 at 19:47 Initial Consult Date 09/13/16 Type of Consultation: HEMEON Referring Provider: EMILIANO HENDRICKS 24 HR Interval Summary Free Text/Dictation ALL NOTED COUNT INCREASED POST PLATELET TRANSFUSION NO BLEEDING Exam/Review of Systems Vital Signs Vitals Vital Signs Date Time Temp Pulse Resp B/P Pulse Ox O2 Delivery O2 Flow Rate FiO2 09/14/16 11:45 76 13 105/55 99 09/14/16 09:00 Mechanical Ventilator 09/14/16 08:00 30 09/14/16 08:00 98.4 09/11/16 08:00 5.0 Intake and Output 09/13/16 09/13/16 09/14/16 15:00 23:00 07:00 Intake Total 60 ml 1610 ml 875.93 ml Output Total 560 ml 380 ml 450 ml Balance -500 ml 1230 ml 425.93 ml Exam General: WN/WD/NAD, AOx 0 HEENT: Unicetric/atraumatic/EOMI (does not follow commands) NECK: JVD elevated, no thyromegaly, intub Lymph: no lymphadenopathy HEART: regular with no S3, II/ systolic murmur at apex LUNGS: Coarse sounds ABD: soft, NT, ND, +BS : Intact Neuro: non focal SKIN: chronic changes EXT: increased edema Results Result Diagram: 09/14/1640909/14/16 0410 Results 24 hrs Laboratory Tests Test 09/13/16 13:22 09/13/16 17:48 09/13/16 21:34 09/14/16 01:20 Bedside Glucose 207 141 123 130 Test 09/14/16 04:10 09/14/16 05:00 09/14/16 05:08 09/14/16 09:52 Absolute Reticulocyte Count 0.061 Alanine Aminotransferase (ALT/SGPT) 40 Albumin 2.4 L Alkaline Phosphatase 186 H Anion Gap 14 Aspartate Amino Transf (AST/SGOT) 35 Basophils # 0.0 Basophils % 0.3 Blood Urea Nitrogen 55 H Calcium Level 7.5 L Carbon Dioxide Level 34 H Carcinoembryonic Antigen 2.3 Chloride Level 92 L Creatinine 3.53 H Direct Bilirubin 0.00 Eosinophils # 0.1 Eosinophils % 1.0 Erythrocyte Sedimentation Rate 48 H Ferritin 146.0 Folate 7.8 Glucose Level 114 # Hematocrit 25.9 L Hemoglobin 8.6 L Indirect Bilirubin 0.1 Lactate Dehydrogenase 420 Lactic Acid Level 1.1 Lymphocytes # 0.9 Lymphocytes % 7.3 L Mean Corpuscular Hemoglobin 28.4 L Mean Corpuscular Hemoglobin Concent 33.2 Mean Corpuscular Volume 85.5 Mean Platelet Volume 11.5 H Monocytes # 0.7 Monocytes % 5.7 Neutrophils # 9.9 H Neutrophils % 85.0 H Nucleated Red Blood Cells # 0.0 Nucleated Red Blood Cells % 0.0 Percent Reticulocyte Count 1.9 H Platelet Count 33 #L Potassium Level 3.6 Red Blood Count 3.03 L Red Cell Distribution Width 14.7 H Sodium Level 136 Thyroid Stimulating Hormone (TSH) 2.780 Total Bilirubin 0.1 L Total Protein 4.9 L Uric Acid 6.4 White Blood Count 11.7 H Iron Level 15 L Percent Iron Saturation 7 L Total Iron Binding Capacity 218 L Bedside Glucose 117 121 Medications Medications Current Medications Ondansetron HCl (Zofran Inj) 4 mg Q6H PRN IV NAUSEA AND/OR VOMITING Last administered on 09/10/16t 23:03; Admin Dose 4 MG; Start 09/09/16 at 20:00 Nitroglycerin (Nitroglycerin (Sl Tab) 0.4 Mg) 1 tab Q5M PRN SL CHEST PAIN; Start 09/09/16 at 20:00 Acetaminophen (Tylenol Liquid) 650 mg Q6H PRN PO PAIN LEVEL 1-3 OR FEVER; Start 09/09/16 at 20:00 Morphine Sulfate (morphine) 2 mg Q4H PRN IV PAIN LEVEL 7-10 Last administered on 09/10/16 23:03; Admin Dose 2 MG; Start 09/09/16 at 20:00 Lorazepam (Ativan) 1 mg Q2H PRN IV ANXIETY Last administered on 09/11/16 04:06 ; Admin Dose 1 MG; Start 09/09/16 at 20:00 Glucose (Glutose) 15 gm Q15M PRN PO DECREASED GLUCOSE; Start 09/09/16 at 20:30 Glucose (Glutose) 22.5 gm Q15M PRN PO DECREASED GLUCOSE; Start 09/09/16 at 20: 30 Dextrose (D50w Syringe) 25 ml Q15M PRN IV DECREASED GLUCOSE; Start 09/09/16 at 20:30 Dextrose (D50w Syringe) 50 ml Q15M PRN IV DECREASED GLUCOSE; Start 09/09/16 at 20:30 Glucagon (Glucagen) 1 mg Q15M PRN IM DECREASED GLUCOSE; Start 09/09/16 at 20:30 Glucose (Glutose) 15 gm Q15M PRN BUCCAL DECREASED GLUCOSE; Start 09/09/16 at 20 :30 Famotidine (Pepcid Iv) 20 mg DAILY IV Last administered on 09/14/16 09:59; Admin Dose 20 MG; Start 09/10/16 at 09:00 Docusate Sodium 100 mg 100 mg Q12H PO Last administered on 09/14/16 10:00; Admin Dose 100 MG; Start 09/10/16 at 20:00 Phenylephrine HCl 160 mg/Dextrose 500 ml @ 0 mls/hr TITRATE IV Last administered on 09/11/16 11:02; Admin Dose 28.12 MLS/HR; Start 09/10/16 at 19: 30 Norepinephrine 32 mg/Dextrose 250 ml @ 0.46 mls/hr TITRATE IV Last administered on 09/12/16 10:16; Admin Dose 14.05 MLS/HR; Start 09/10/16 at 22: 00 Midazolam HCl 50 ml @ 1 mls/hr TITRATE IV Last administered on 09/11/16 19:46 ; Admin Dose 2 MLS/HR; Start 09/11/16 at 08:30 Fentanyl (Sublimaze) 100 ml @ 2.5 mls/hr TITRATE IV Last administered on 22:50; Admin Dose 5 MLS/HR; Start 09/11/16 at 08:30 Aspirin 81 mg 81 mg DAILY PO Last administered on 09/14/16 09:59; Admin Dose 81 MG; Start 09/12/16 at 09:00 Levetiracetam 1000 mg/Dextrose 110 ml @ 440 mls/hr Q12 IVPB Last administered on 09/14/16 09:59; Admin Dose 440 MLS/HR; Start 09/12/16 at 11:30 Ceftriaxone Sodium (Rocephin) 50 ml @ 100 mls/hr Q24H IVPB Last administered on 09/13/16 17:38; Admin Dose 100 MLS/HR; Start 09/12/16 at 16:00 Insulin Aspart NOVOLOG *MODERATE* ALGORI... Q4 SC Last administered on 13:24; Admin Dose 4 UNIT; Start 09/13/16 at 13:00 Sodium Chloride (1/2 NS) 1,000 ml @ 125 mls/hr Q8H IV Last administered on 03:46; Admin Dose 125 MLS/HR; Start 09/13/16 at 15:00 JEFF FRANK MD Sep 14, 2016 12:12
--- NOTE | 2016-09-14 12:13 | CONS ---
Date/Time of Note Date/Time of Note DATE: 09/14/16 TIME: 12:11 Assessment/Plan Assessment/Plan Chief Complaint/Hosp Course IMPRESSION: 1. Patient has acute kidney injury./atn 2. Patient has acute kidney injury possibly due to severe hypotension and sepsis. 3. Patient has acute tubular necrosis multifactorial. 4.. Patient has leukocytosis, anemia, thrombocytopenia. The patient has Escherichia coli bacteremia, E. coli urinary tract infection. 5: Metabolic acidosis,6 respiratory failure, vent dependent, incomplete database ,7 positive troponin,8 thrombocytopenia. plan iv fluid ck bmp Problems: Consultation Date/Type/Reason Admit Date/Time Sep 09, 2016 at 19:47 Initial Consult Date 09/11/16 Type of Consultation: renal Referring Provider: EMILIANO HENDRICKS 24 HR Interval Summary Constitutional: other (on vent) Exam/Review of Systems Vital Signs Vitals Vital Signs Date Time Temp Pulse Resp B/P Pulse Ox O2 Delivery O2 Flow Rate FiO2 09/14/16 11:45 76 13 105/55 99 09/14/16 09:00 Mechanical Ventilator 09/14/16 08:00 30 09/14/16 08:00 98.4 09/11/16 08:00 5.0 Intake and Output 09/13/16 09/13/16 09/14/16 15:00 23:00 07:00 Intake Total 60 ml 1610 ml 875.93 ml Output Total 560 ml 380 ml 450 ml Balance -500 ml 1230 ml 425.93 ml Exam Respiratory: diminished breath sounds Cardiovascular: regular rate and rhythm Gastrointestinal: bowel sounds (+), soft Extremities: edema (+) Results Result Diagram: 09/14/16 0410 09/14/16 0410 Results 24 hrs Laboratory Tests Test 09/13/16 13:22 09/13/16 17:48 09/13/16 21:34 09/14/16 01:20 Bedside Glucose 207 141 123 130 Test 09/14/16 04:10 09/14/16 05:00 09/14/16 05:08 09/14/16 09:52 Absolute Reticulocyte Count 0.061 Alanine Aminotransferase (ALT/SGPT) 40 Albumin 2.4 L Alkaline Phosphatase 186 H Anion Gap 14 Aspartate Amino Transf (AST/SGOT) 35 Basophils # 0.0 Basophils % 0.3 Blood Urea Nitrogen 55 H Calcium Level 7.5 L Carbon Dioxide Level 34 H Carcinoembryonic Antigen 2.3 Chloride Level 92 L Creatinine 3.53 H Direct Bilirubin 0.00 Eosinophils # 0.1 Eosinophils % 1.0 Erythrocyte Sedimentation Rate 48 H Ferritin 146.0 Folate 7.8 Glucose Level 114 # Hematocrit 25.9 L Hemoglobin 8.6 L Indirect Bilirubin 0.1 Lactate Dehydrogenase 420 Lactic Acid Level 1.1 Lymphocytes # 0.9 Lymphocytes % 7.3 L Mean Corpuscular Hemoglobin 28.4 L Mean Corpuscular Hemoglobin Concent 33.2 Mean Corpuscular Volume 85.5 Mean Platelet Volume 11.5 H Monocytes # 0.7 Monocytes % 5.7 Neutrophils # 9.9 H Neutrophils % 85.0 H Nucleated Red Blood Cells # 0.0 Nucleated Red Blood Cells % 0.0 Percent Reticulocyte Count 1.9 H Platelet Count 33 #L Potassium Level 3.6 Red Blood Count 3.03 L Red Cell Distribution Width 14.7 H Sodium Level 136 Thyroid Stimulating Hormone (TSH) 2.780 Total Bilirubin 0.1 L Total Protein 4.9 L Uric Acid 6.4 White Blood Count 11.7 H Iron Level 15 L Percent Iron Saturation 7 L Total Iron Binding Capacity 218 L Bedside Glucose 117 121 Medications Medications Current Medications Ondansetron HCl (Zofran Inj) 4 mg Q6H PRN IV NAUSEA AND/OR VOMITING Last administered on 09/10/16 23:03; Admin Dose 4 MG; Start 09/09/16 at 20:00 Nitroglycerin (Nitroglycerin (Sl Tab) 0.4 Mg) 1 tab Q5M PRN SL CHEST PAIN; Start 09/09/16 at 20:00 Acetaminophen (Tylenol Liquid) 650 mg Q6H PRN PO PAIN LEVEL 1-3 OR FEVER; Start 09/09/16 at 20:00 Morphine Sulfate (morphine) 2 mg Q4H PRN IV PAIN LEVEL 7-10 Last administered on 09/10/16 23:03; Admin Dose 2 MG; Start 09/09/16 at 20:00 Lorazepam (Ativan) 1 mg Q2H PRN IV ANXIETY Last administered on 09/11/16 04:06 ; Admin Dose 1 MG; Start 09/09/16 at 20:00 Glucose (Glutose) 15 gm Q15M PRN PO DECREASED GLUCOSE; Start 09/09/16 at 20:30 Glucose (Glutose) 22.5 gm Q15M PRN PO DECREASED GLUCOSE; Start 09/09/16 at 20: 30 Dextrose (D50w Syringe) 25 ml Q15M PRN IV DECREASED GLUCOSE; Start 09/09/16 at 20:30 Dextrose (D50w Syringe) 50 ml Q15M PRN IV DECREASED GLUCOSE; Start 09/09/16 at 20:30 Glucagon (Glucagen) 1 mg Q15M PRN IM DECREASED GLUCOSE; Start 09/09/16 at 20:30 Glucose (Glutose) 15 gm Q15M PRN BUCCAL DECREASED GLUCOSE; Start 09/09/16 at 20 :30 Famotidine (Pepcid Iv) 20 mg DAILY IV Last administered on 09/14/16 09:59; Admin Dose 20 MG; Start 09/10/16 at 09:00 Docusate Sodium 100 mg 100 mg Q12H PO Last administered on 09/14/16 10:00; Admin Dose 100 MG; Start 09/10/16 at 20:00 Phenylephrine HCl 160 mg/Dextrose 500 ml @ 0 mls/hr TITRATE IV Last administered on 09/11/16 11:02; Admin Dose 28.12 MLS/HR; Start 09/10/16 at 19: 30 Norepinephrine 32 mg/Dextrose 250 ml @ 0.46 mls/hr TITRATE IV Last administered on 09/12/16 10:16; Admin Dose 14.05 MLS/HR; Start 09/10/16 at 22: 00 Midazolam HCl 50 ml @ 1 mls/hr TITRATE IV Last administered on 09/11/16 19:46 ; Admin Dose 2 MLS/HR; Start 09/11/16 at 08:30 Fentanyl (Sublimaze) 100 ml @ 2.5 mls/hr TITRATE IV Last administered on 22:50; Admin Dose 5 MLS/HR; Start 09/11/16 at 08:30 Aspirin 81 mg 81 mg DAILY PO Last administered on 09/14/16 09:59; Admin Dose 81 MG; Start 09/12/16 at 09:00 Levetiracetam 1000 mg/Dextrose 110 ml @ 440 mls/hr Q12 IVPB Last administered on 09/14/16 09:59; Admin Dose 440 MLS/HR; Start 09/12/16 at 11:30 Ceftriaxone Sodium (Rocephin) 50 ml @ 100 mls/hr Q24H IVPB Last administered on 09/13/16 17:38; Admin Dose 100 MLS/HR; Start 09/12/16 at 16:00 Insulin Aspart NOVOLOG *MODERATE* ALGORI... Q4 SC Last administered on 13:24; Admin Dose 4 UNIT; Start 09/13/16 at 13:00 Sodium Chloride (1/2 NS) 1,000 ml @ 125 mls/hr Q8H IV Last administered on 03:46; Admin Dose 125 MLS/HR; Start 09/13/16 at 15:00 QUITA SCHOFIELD MD Sep 14, 2016 12:13
[2016-09-14] MEDS: CEFTRIAXONE 1 GM/50 ML (PMX) 50 ML IVPB SCH (16:10)
--- NOTE | 2016-09-14 17:02 | CONS ---
Date/Time of Note Date/Time of Note DATE: 09/14/16 TIME: 17:01 Assessment/Plan Assessment/Plan Additional Assessment/Plan 1. Positive troponin, assess significance, assess for true acute coronary syndrome.-mild uptrend in setting of renal failure - no intervention planned now , will monitor - CONSERVATIVE RX for now. 2. Hypotension, shock state. Rule out cardiac etiology-EF 45-50 by echo this admit - better now, con't supportive care - STABLE 3. Abnormal electrocardiogram, assess for acute coronary syndrome- no cp now, will monitor 4. Respiratory failure- acute, con't resp rx, intubated 5. Leukocytosis- on anti-bx 6. Anemia- H/H stable - no significant active bleed noted 7. Thrombocytopenia. 8. Renal failure- acute on chronic, renal team follows 9. Bacteremia with gram negative rods. Consultation Date/Type/Reason Admit Date/Time Sep 09, 2016 at 19:47 Initial Consult Date 09/11/16 Type of Consultation: renal Referring Provider: EMILIANO HENDRICKS 24 HR Interval Summary Free Text/Dictation NO acute change - family at bedside, happy with care. ROS: No fever, no chills, no nausea, no vomiting, no diarrhea/constipation No recent weight changes No chest pain, no PND, no orthopnea No dizziness, blurred vision No thirst, no heat or cold intolerance (per nurse) Exam/Review of Systems Vital Signs Vitals Vital Signs Date Time Temp Pulse Resp B/P Pulse Ox O2 Delivery O2 Flow Rate FiO2 09/14/16 16:00 80 09/14/16 15:30 15 126/59 100 09/14/16 15:00 Mechanical Ventilator 09/14/16 12:00 98.3 09/14/16 11:00 30 09/11/16 08:00 5.0 Intake and Output 09/13/16 09/13/16 09/14/16 15:00 23:00 07:00 Intake Total 60 ml 1610 ml 875.93 ml Output Total 560 ml 380 ml 450 ml Balance -500 ml 1230 ml 425.93 ml Exam General: WN/WD/NAD, AOx 0 HEENT: Unicetric/atraumatic/EOMI (does not follow commands) NECK: JVD elevated, no thyromegaly, intibub Lymph: no lymphadenopathy HEART: regular with no S3, II/ systolic murmur at apex LUNGS: Coarse sounds ABD: soft, NT, ND, +BS : Intact Neuro: non focal SKIN: chronic changes EXT: trace edema Results Result Diagram: 09/14/1640909/14/160 Results 24 hrs Laboratory Tests Test 09/13/16 17:48 09/13/16 21:34 09/14/16 01:20 09/14/16 04:10 Bedside Glucose 141 123 130 Absolute Reticulocyte Count 0.061 Alanine Aminotransferase (ALT/SGPT) 40 Albumin 2.4 L Alkaline Phosphatase 186 H Anion Gap 14 Aspartate Amino Transf (AST/SGOT) 35 Basophils # 0.0 Basophils % 0.3 Blood Urea Nitrogen 55 H Calcium Level 7.5 L Carbon Dioxide Level 34 H Carcinoembryonic Antigen 2.3 Chloride Level 92 L Creatinine 3.53 H Direct Bilirubin 0.00 Eosinophils # 0.1 Eosinophils % 1.0 Erythrocyte Sedimentation Rate 48 H Ferritin 146.0 Folate 7.8 Glucose Level 114 # Hematocrit 25.9 L Hemoglobin 8.6 L Indirect Bilirubin 0.1 Lactate Dehydrogenase 420 Lactic Acid Level 1.1 Lymphocytes # 0.9 Lymphocytes % 7.3 L Mean Corpuscular Hemoglobin 28.4 L Mean Corpuscular Hemoglobin Concent 33.2 Mean Corpuscular Volume 85.5 Mean Platelet Volume 11.5 H Monocytes # 0.7 Monocytes % 5.7 Neutrophils # 9.9 H Neutrophils % 85.0 H Nucleated Red Blood Cells # 0.0 Nucleated Red Blood Cells % 0.0 Percent Reticulocyte Count 1.9 H Platelet Count 33 #L Potassium Level 3.6 Red Blood Count 3.03 L Red Cell Distribution Width 14.7 H Sodium Level 136 Thyroid Stimulating Hormone (TSH) 2.780 Total Bilirubin 0.1 L Total Protein 4.9 L Uric Acid 6.4 White Blood Count 11.7 H Test 09/14/16 05:00 09/14/16 05:08 09/14/16 09:52 09/14/16 12:40 Iron Level 15 L Percent Iron Saturation 7 L Total Iron Binding Capacity 218 L Bedside Glucose 117 121 119 Test 09/14/16 16:19 Bedside Glucose 114 Medications Medications Current Medications Ondansetron HCl (Zofran Inj) 4 mg Q6H PRN IV NAUSEA AND/OR VOMITING Last administered on 09/10/16t 23:03; Admin Dose 4 MG; Start 09/09/16 at 20:00 Nitroglycerin (Nitroglycerin (Sl Tab) 0.4 Mg) 1 tab Q5M PRN SL CHEST PAIN; Start 09/09/16 at 20:00 Acetaminophen (Tylenol Liquid) 650 mg Q6H PRN PO PAIN LEVEL 1-3 OR FEVER; Start 09/09/16 at 20:00 Morphine Sulfate (morphine) 2 mg Q4H PRN IV PAIN LEVEL 7-10 Last administered on 09/10/16 23:03; Admin Dose 2 MG; Start 09/09/16 at 20:00 Lorazepam (Ativan) 1 mg Q2H PRN IV ANXIETY Last administered on 09/11/16 04:06 ; Admin Dose 1 MG; Start 09/09/16 at 20:00 Glucose (Glutose) 15 gm Q15M PRN PO DECREASED GLUCOSE; Start 09/09/16 at 20:30 Glucose (Glutose) 22.5 gm Q15M PRN PO DECREASED GLUCOSE; Start 09/09/16 at 20: 30 Dextrose (D50w Syringe) 25 ml Q15M PRN IV DECREASED GLUCOSE; Start 09/09/16 at 20:30 Dextrose (D50w Syringe) 50 ml Q15M PRN IV DECREASED GLUCOSE; Start 09/09/16 at 20:30 Glucagon (Glucagen) 1 mg Q15M PRN IM DECREASED GLUCOSE; Start 09/09/16 at 20:30 Glucose (Glutose) 15 gm Q15M PRN BUCCAL DECREASED GLUCOSE; Start 09/09/16 at 20 :30 Famotidine (Pepcid Iv) 20 mg DAILY IV Last administered on 09/14/16 09:59; Admin Dose 20 MG; Start 09/10/16 at 09:00 Docusate Sodium 100 mg 100 mg Q12H PO Last administered on 09/14/16 10:00; Admin Dose 100 MG; Start 09/10/16 at 20:00 Phenylephrine HCl 160 mg/Dextrose 500 ml @ 0 mls/hr TITRATE IV Last administered on 09/11/16 11:02; Admin Dose 28.12 MLS/HR; Start 09/10/16 at 19: 30 Norepinephrine 32 mg/Dextrose 250 ml @ 0.46 mls/hr TITRATE IV Last administered on 09/12/16 10:16; Admin Dose 14.05 MLS/HR; Start 09/10/16 at 22: 00 Midazolam HCl 50 ml @ 1 mls/hr TITRATE IV Last administered on 09/11/16 19:46 ; Admin Dose 2 MLS/HR; Start 09/11/16 at 08:30 Fentanyl (Sublimaze) 100 ml @ 2.5 mls/hr TITRATE IV Last administered on 22:50; Admin Dose 5 MLS/HR; Start 09/11/16 at 08:30 Aspirin 81 mg 81 mg DAILY PO Last administered on 09/14/16 09:59; Admin Dose 81 MG; Start 09/12/16 at 09:00 Levetiracetam 1000 mg/Dextrose 110 ml @ 440 mls/hr Q12 IVPB Last administered on 09/14/16 09:59; Admin Dose 440 MLS/HR; Start 09/12/16 at 11:30 Ceftriaxone Sodium (Rocephin) 50 ml @ 100 mls/hr Q24H IVPB Last administered on 09/14/16 16:10; Admin Dose 100 MLS/HR; Start 09/12/16 at 16:00 Insulin Aspart NOVOLOG *MODERATE* ALGORI... Q4 SC Last administered on 13:24; Admin Dose 4 UNIT; Start 09/13/16 at 13:00 Sodium Chloride (1/2 NS) 1,000 ml @ 125 mls/hr Q8H IV Last administered on 12:35; Admin Dose 125 MLS/HR; Start 09/13/16 at 15:00 CHERI PATTEN MD Sep 14, 2016 17:02
[2016-09-15] VITALS (36 sets, daily range): BP systolic 114–150; BP diastolic 52–83; PULSE 76–87; RESP 13–29
[2016-09-15] MEDS: INSULIN ASPART [NOVOLOG] 3 ML PEN SC SCH ×6 (00:56→20:24)
[2016-09-15 05:05] LABS: ADD SCAN DIFF NO
[2016-09-15 05:25] LABS: ALBUMIN 2.2 g/dl (3.3-4.9)
[2016-09-15 05:28] LABS: TOTAL PROTEIN 4.5 g/dl (6.1-8.1)
[2016-09-15 05:30] LABS: ABNORMAL IP MESSAGE 1; BASOPHILS % 0.2 % (0.0-2.0); EOSINOPHILS # 0.1 10^3/ul (0.0-0.5); EOSINOPHILS % 0.8 % (0.0-7.0); HEMATOCRIT 29.2 % (37.0-47.0); HEMOGLOBIN 9.9 g/dl (12.0-16.0); LYMPHOCYTES # 1.3 10^3/ul (0.8-2.9); LYMPHOCYTES % 10.4 % (15.0-51.0); MEAN CORPUSCULAR HEMOGLOBIN 28.9 pg (29.0-33.0); MEAN CORPUSCULAR HGB CONC 33.9 g/dl (32.0-37.0); MEAN CORPUSCULAR VOLUME 85.1 fl (82.0-101.0); MONOCYTE # 0.9 10^3/ul (0.3-0.9); MONOCYTES % 7.3 % (0.0-11.0); NEUTROPHILS % 80.7 % (39.0-77.0); RED BLOOD COUNT 3.43 10^6/ul (4.20-5.40); RED CELL DISTRIBUTION WIDTH 14.9 % (11.5-14.5); WHITE BLOOD COUNT 12.4 10^3/ul (4.8-10.8)
[2016-09-15 05:31] LABS: POTASSIUM 3.5 mmol/L (3.5-5.1)
[2016-09-15 05:34] LABS: CREATININE 3.66 mg/dl (0.44-1.00)
[2016-09-15 05:35] LABS: CALCIUM 7.3 mg/dl (8.4-10.2); MAGNESIUM 1.9 mg/dl (1.7-2.5)
[2016-09-15 05:37] LABS: PLATELET COUNT 26 10^3/UL (140-415)
[2016-09-15] MEDS: SOD CHLORIDE 0.45% 1,000 ML IV SCH ×2 (06:13→15:00)
--- NOTE | 2016-09-15 08:33 | PN ---
Date/Time of Note Date/Time of Note DATE: 09/15/16 TIME: 08:25 Assessment/Plan VTE Prophylaxis VTE Prophylaxis Intervention: SCD's VTE Contraindication Reason: thrombocytopenia Lines/Catheters IV Catheter Type (from Nrsg): Central Line Central line still needed: Yes Urinary Cath still in place: Yes Reason Cath still needed: other (indicate) Assessment/Plan Assessment/Plan 75 yo female with a past medical history of type II DM, chronic pain who complains of weakness and decreased urinary output for the last several days. 1. Severe Sepsis with septic shock 2/2 Ecoli UTI /Bacteremia 2. Acute renal failure r/o CKD- 2/2 to ATN from sepsis 3. Type II DM - controlled on SSI only 4. Metabolic / Lactic acidosis 2/2 #1: resolved 5. Acute resp failure now ventilator dependent 6. NSTEMI versus demand ischemia 7. 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 Severe Iron deficiency: could be causing thrombocytopenia PLAN: * Continue ICU care * Continue Vent mgt/ patient on CPAP trials today/ appreciate pulm input * Continue broad spectrum abx / Appreciate ID consult * Daily aspirin / no BB or Acei for now 2/2 hypotension /Appreciate Cardiology consult * SSI only for now till on some kind of diet * IV iron infusion * Appreciate all consults PROPHYLAXIS: Pepcid / SCDS CRITICAL CARE TIME: >35 mins Subjective Subjective 24 Hr Interval Summary Free Text/Dictation Patient seen and examined. Exam/Review of Systems Vital Signs Vitals Vital Signs Date Time Temp Pulse Resp B/P Pulse Ox O2 Delivery O2 Flow Rate FiO2 09/15/16 07:00 81 15 124/57 99 Mechanical Ventilator 09/15/16 04:56 30 09/15/16 04:00 98.3 09/11/16 08:00 5.0 Intake and Output 09/14/16 09/14/16 09/15/16 15:00 23:00 07:00 Intake Total 1110.64 ml 1160 ml 1000 ml Output Total 525 ml 560 ml 390 ml Balance 585.64 ml 600 ml 610 ml Exam Constitutional: frail, No alert, No oriented Head: normocephalic Eyes: PERRL, icteric ENMT: intubated Respiratory: clear to auscultation, diminished breath sounds Cardiovascular: regular rate and rhythm, No murmurs/extra sounds Gastrointestinal: bowel sounds, distended, other (large periumbilical hernia), soft Genitourinary - Female: other (montoya draining clear urine) Extremities: No edema Neurological: No nl mental status Results Result Diagram: 09/15/16 0430 09/15/16 0430 Results 24 hrs Laboratory Tests Test 09/14/16 09:52 09/14/16 12:40 09/14/16 16:19 09/14/16 20:40 Bedside Glucose 121 119 114 100 Test 09/15/16 00:55 09/15/16 04:30 09/15/16 05:02 Bedside Glucose 112 105 Alanine Aminotransferase (ALT/SGPT) 37 Albumin 2.2 L Alkaline Phosphatase 184 H Anion Gap 14 Aspartate Amino Transf (AST/SGOT) 22 Basophils # 0.0 Basophils % 0.2 Blood Urea Nitrogen 53 H Calcium Level 7.3 L Carbon Dioxide Level 29 Chloride Level 94 L Creatinine 3.66 H Direct Bilirubin 0.00 Eosinophils # 0.1 Eosinophils % 0.8 Glucose Level 95 Hematocrit 29.2 L Hemoglobin 9.9 L Indirect Bilirubin 0.0 Lymphocytes # 1.3 Lymphocytes % 10.4 L Magnesium Level 1.9 Mean Corpuscular Hemoglobin 28.9 L Mean Corpuscular Hemoglobin Concent 33.9 Mean Corpuscular Volume 85.1 Mean Platelet Volume Monocytes # 0.9 Monocytes % 7.3 Neutrophils # 10.0 H Neutrophils % 80.7 H Nucleated Red Blood Cells # 0.0 Nucleated Red Blood Cells % 0.0 Phosphorus Level 3.6 Platelet Count 26 #*L Potassium Level 3.5 Red Blood Count 3.43 L Red Cell Distribution Width 14.9 H Sodium Level 133 L Total Bilirubin 0.0 L Total Protein 4.5 L White Blood Count 12.4 H Medications Medications Current Medications Ondansetron HCl (Zofran Inj) 4 mg Q6H PRN IV NAUSEA AND/OR VOMITING Last administered on 09/10/16t 23:03; Admin Dose 4 MG; Start 09/09/16 at 20:00 Nitroglycerin (Nitroglycerin (Sl Tab) 0.4 Mg) 1 tab Q5M PRN SL CHEST PAIN; Start 09/09/16 at 20:00 Acetaminophen (Tylenol Liquid) 650 mg Q6H PRN PO PAIN LEVEL 1-3 OR FEVER; Start 09/09/16 at 20:00 Morphine Sulfate (morphine) 2 mg Q4H PRN IV PAIN LEVEL 7-10 Last administered on 09/10/16 23:03; Admin Dose 2 MG; Start 09/09/16 at 20:00 Lorazepam (Ativan) 1 mg Q2H PRN IV ANXIETY Last administered on 09/11/16 04:06 ; Admin Dose 1 MG; Start 09/09/16 at 20:00 Glucose (Glutose) 15 gm Q15M PRN PO DECREASED GLUCOSE; Start 09/09/16 at 20:30 Glucose (Glutose) 22.5 gm Q15M PRN PO DECREASED GLUCOSE; Start 09/09/16 at 20: 30 Dextrose (D50w Syringe) 25 ml Q15M PRN IV DECREASED GLUCOSE; Start 09/09/16 at 20:30 Dextrose (D50w Syringe) 50 ml Q15M PRN IV DECREASED GLUCOSE; Start 09/09/16 at 20:30 Glucagon (Glucagen) 1 mg Q15M PRN IM DECREASED GLUCOSE; Start 09/09/16 at 20:30 Glucose (Glutose) 15 gm Q15M PRN BUCCAL DECREASED GLUCOSE; Start 09/09/16 at 20 :30 Famotidine (Pepcid Iv) 20 mg DAILY IV Last administered on 09/14/16 09:59; Admin Dose 20 MG; Start 09/10/16 at 09:00 Docusate Sodium 100 mg 100 mg Q12H PO Last administered on 09/14/16 20:39; Admin Dose 100 MG; Start 09/10/16 at 20:00 Phenylephrine HCl 160 mg/Dextrose 500 ml @ 0 mls/hr TITRATE IV Last administered on 09/11/16 11:02; Admin Dose 28.12 MLS/HR; Start 09/10/16 at 19: 30 Norepinephrine 32 mg/Dextrose 250 ml @ 0.46 mls/hr TITRATE IV Last administered on 09/12/16 10:16; Admin Dose 14.05 MLS/HR; Start 09/10/16 at 22: 00 Midazolam HCl 50 ml @ 1 mls/hr TITRATE IV Last administered on 09/11/16 19:46 ; Admin Dose 2 MLS/HR; Start 09/11/16 at 08:30 Fentanyl (Sublimaze) 100 ml @ 2.5 mls/hr TITRATE IV Last administered on 22:50; Admin Dose 5 MLS/HR; Start 09/11/16 at 08:30 Aspirin 81 mg 81 mg DAILY PO Last administered on 09/14/16 09:59; Admin Dose 81 MG; Start 09/12/16 at 09:00 Levetiracetam 1000 mg/Dextrose 110 ml @ 440 mls/hr Q12 IVPB Last administered on 09/14/16 20:39; Admin Dose 440 MLS/HR; Start 09/12/16 at 11:30 Ceftriaxone Sodium (Rocephin) 50 ml @ 100 mls/hr Q24H IVPB Last administered on 09/14/16 16:10; Admin Dose 100 MLS/HR; Start 09/12/16 at 16:00 Insulin Aspart NOVOLOG *MODERATE* ALGORI... Q4 SC Last administered on 13:24; Admin Dose 4 UNIT; Start 09/13/16 at 13:00 Sodium Chloride (1/2 NS) 1,000 ml @ 125 mls/hr Q8H IV Last administered on 06:13; Admin Dose 125 MLS/HR; Start 09/13/16 at 15:00 Procedures Procedures PROCEDURE: XR Chest. CLINICAL INDICATION: Shortness of breath. TECHNIQUE: A single portable view of the chest was obtained. COMPARISON: 09/12/2016 FINDINGS: An endotracheal tube is seen at the level of the haroon. Recommend retraction approximately 3 cm. The nasogastric tube and right internal jugular catheter are essentially unchanged. The cardiomediastinal silhouette is within normal limits. Increase in size of right pleural effusion is seen. A probable small left pleural effusion is also noted. Diffuse pulmonary vascular congestion is seen which is increased. The soft tissues and osseous structures are unremarkable. IMPRESSION: 1. Endotracheal tube at the level of the haroon. Recommend retraction approximately 3 cm. 2. Increase in size of a right pleural effusion as well as a small left pleural effusion. 3. Increased diffuse pulmonary vascular congestion. RPTAT: HPNM Results were discussed with the patient's nurse Rachel Contreras at 2016 11:29:58 AM Harjeet Maher, Physician Date Time Electronically viewed and signed by Harjeet Maher, Physician on 09/15/2016 11 :30 EMILIANO HENDRICKS Sep 15, 2016 08:32
[2016-09-15] MEDS: LEVETIRACETAM IV 1,000 MG in DEXTROSE 5% 100 ML IVPB SCH (09:04)
[2016-09-15] MEDS: DOCUSATE SODIUM 100 MG CAP PO SCH ×2 (09:04→20:22)
[2016-09-15] MEDS: FAMOTIDINE 20 MG INJ IV SCH (09:04)
[2016-09-15] MEDS: ASPIRIN 81 MG TAB PO SCH (09:04)
--- NOTE | 2016-09-15 10:19 | RADRPT ---
PROCEDURE: Right upper extremity venous ultrasound CLINICAL INDICATION: Right arm pain and swelling TECHNIQUE: Multiple color Doppler and spectral Doppler images of the right upper extremity venous system were obtained. Images were reviewed on a high-resolution PACS workstation. COMPARISON: None FINDINGS: Normal compressibility and color flow is seen in the right internal jugular vein, subclavian vein, a xillary vein, brachial vein, radial vein, ulnar vein, basilic vein, and cephalic vein. Normal respir atory ability with augmentation is seen. IMPRESSION: No sonographic evidence for a deep venous thrombosis. RPTAT: HPNM Physician Laura Date Time Electronically viewed and signed by Physician Laura on 09/15/2016 10:19 /
--- NOTE | 2016-09-15 10:36 | CONS ---
Date/Time of Note Date/Time of Note DATE: 09/15/16 TIME: 10:34 Assessment/Plan Assessment/Plan Additional Assessment/Plan Ventilator settings; AC of 14, tidal volume 500, PEEP of 5, 30% FiO2. Assessment and recommendations; next 1. Patient admitted with severe gram-negative sepsis leading to respiratory failure. 2. Severe metabolic acidosis with interval correction. 3. Acute renal insufficiency. Serum creatinine has stabilized. Patient having adequate urine output. 4. Severe mental unresponsiveness. Likely from metabolic encephalopathy. Patient did have a negative CT scan of the head done. 5. Thrombocytopenia from sepsis with slight drop in platelet count today. No overt bleeding seen. 6. Possibly seizure activity. Patient on Keppra. Continue current supportive care. Weaning from ventilator with depend upon adequate mental status recovery. Note is guarded. Consultation Date/Type/Reason Admit Date/Time Sep 09, 2016 at 19:47 Initial Consult Date 09/11/16 Type of Consultation: Pulmonary/critical care Referring Provider: EMILIANO HENDRICKS 24 HR Interval Summary Free Text/Dictation Patient's condition remains critical. Still requiring full ventilator support. Patient however still severely unresponsive mentally. General examination; elderly lady, currently in no distress. Unresponsive. Exam/Review of Systems Vital Signs Vitals Vital Signs Date Time Temp Pulse Resp B/P Pulse Ox O2 Delivery O2 Flow Rate FiO2 09/15/16 09:18 84 09/15/16 09:00 14 114/55 99 Mechanical Ventilator 09/15/16 04:56 30 09/15/16 04:00 98.3 09/11/16 08:00 5.0 Intake and Output 09/14/16 09/14/16 09/15/16 15:00 23:00 07:00 Intake Total 1110.64 ml 1160 ml 1000 ml Output Total 525 ml 560 ml 390 ml Balance 585.64 ml 600 ml 610 ml Exam H EENT examination; supple neck, no JVD. No lymphadenopathy. Midline trachea. Pupils are small bilaterally. Orally intubated. Chest examination; clear to auscultation bilaterally. S1-S2 audible, no murmurs. Regular rhythm. Abdomen examination; soft, nondistended. No organomegaly. Bowel sounds audible. Extremity examination; no peripheral edema. ASTRONOMY DEPARTMENT CHAIR examination; patient unresponsive. Results Result Diagram: 2/26/17 0430 2/26/17 0430 Results 24 hrs Laboratory Tests Test 09/14/16 12:40 09/14/16 16:19 09/14/16 20:40 09/15/16 00:55 Bedside Glucose 119 114 100 112 Test 09/15/16 03:00 09/15/16 04:30 09/15/16 05:02 09/15/16 08:51 Stool Occult Blood POSITIVE Alanine Aminotransferase (ALT/SGPT) 37 Albumin 2.2 L Alkaline Phosphatase 184 H Anion Gap 14 Aspartate Amino Transf (AST/SGOT) 22 Basophils # 0.0 Basophils % 0.2 Blood Urea Nitrogen 53 H Calcium Level 7.3 L Carbon Dioxide Level 29 Chloride Level 94 L Creatinine 3.66 H Direct Bilirubin 0.00 Eosinophils # 0.1 Eosinophils % 0.8 Glucose Level 95 Hematocrit 29.2 L Hemoglobin 9.9 L Indirect Bilirubin 0.0 Lymphocytes # 1.3 Lymphocytes % 10.4 L Magnesium Level 1.9 Mean Corpuscular Hemoglobin 28.9 L Mean Corpuscular Hemoglobin Concent 33.9 Mean Corpuscular Volume 85.1 Mean Platelet Volume Monocytes # 0.9 Monocytes % 7.3 Neutrophils # 10.0 H Neutrophils % 80.7 H Nucleated Red Blood Cells # 0.0 Nucleated Red Blood Cells % 0.0 Phosphorus Level 3.6 Platelet Count 26 #*L Potassium Level 3.5 Red Blood Count 3.43 L Red Cell Distribution Width 14.9 H Sodium Level 133 L Total Bilirubin 0.0 L Total Protein 4.5 L White Blood Count 12.4 H Bedside Glucose 105 81 Medications Medications Current Medications Ondansetron HCl (Zofran Inj) 4 mg Q6H PRN IV NAUSEA AND/OR VOMITING Last administered on 09/10/16 23:03; Admin Dose 4 MG; Start 09/09/16 at 20:00 Nitroglycerin (Nitroglycerin (Sl Tab) 0.4 Mg) 1 tab Q5M PRN SL CHEST PAIN; Start 09/09/16 at 20:00 Acetaminophen (Tylenol Liquid) 650 mg Q6H PRN PO PAIN LEVEL 1-3 OR FEVER; Start 09/09/16 at 20:00 Morphine Sulfate (morphine) 2 mg Q4H PRN IV PAIN LEVEL 7-10 Last administered on 09/10/16 23:03; Admin Dose 2 MG; Start 09/09/16 at 20:00 Lorazepam (Ativan) 1 mg Q2H PRN IV ANXIETY Last administered on 09/11/16 04:06 ; Admin Dose 1 MG; Start 09/09/16 at 20:00 Glucose (Glutose) 15 gm Q15M PRN PO DECREASED GLUCOSE; Start 09/09/16 at 20:30 Glucose (Glutose) 22.5 gm Q15M PRN PO DECREASED GLUCOSE; Start 09/09/16 at 20: 30 Dextrose (D50w Syringe) 25 ml Q15M PRN IV DECREASED GLUCOSE; Start 09/09/16 at 20:30 Dextrose (D50w Syringe) 50 ml Q15M PRN IV DECREASED GLUCOSE; Start 09/09/16 at 20:30 Glucagon (Glucagen) 1 mg Q15M PRN IM DECREASED GLUCOSE; Start 09/09/16 at 20:30 Glucose (Glutose) 15 gm Q15M PRN BUCCAL DECREASED GLUCOSE; Start 09/09/16 at 20 :30 Famotidine (Pepcid Iv) 20 mg DAILY IV Last administered on 09/15/16 09:04; Admin Dose 20 MG; Start 09/10/16 at 09:00 Docusate Sodium 100 mg 100 mg Q12H PO Last administered on 09/15/16 09:04; Admin Dose 100 MG; Start 09/10/16 at 20:00 Phenylephrine HCl 160 mg/Dextrose 500 ml @ 0 mls/hr TITRATE IV Last administered on 09/11/16 11:02; Admin Dose 28.12 MLS/HR; Start 09/10/16 at 19: 30 Norepinephrine 32 mg/Dextrose 250 ml @ 0.46 mls/hr TITRATE IV Last administered on 09/12/16 10:16; Admin Dose 14.05 MLS/HR; Start 09/10/16 at 22: 00 Midazolam HCl 50 ml @ 1 mls/hr TITRATE IV Last administered on 09/11/16 19:46 ; Admin Dose 2 MLS/HR; Start 09/11/16 at 08:30 Fentanyl (Sublimaze) 100 ml @ 2.5 mls/hr TITRATE IV Last administered on 22:50; Admin Dose 5 MLS/HR; Start 09/11/16 at 08:30 Aspirin 81 mg 81 mg DAILY PO Last administered on 09/15/16 09:04; Admin Dose 81 MG; Start 09/12/16 at 09:00 Levetiracetam 1000 mg/Dextrose 110 ml @ 440 mls/hr Q12 IVPB Last administered on 09/15/16 09:04; Admin Dose 440 MLS/HR; Start 09/12/16 at 11:30 Ceftriaxone Sodium (Rocephin) 50 ml @ 100 mls/hr Q24H IVPB Last administered on 09/14/16 16:10; Admin Dose 100 MLS/HR; Start 09/12/16 at 16:00 Insulin Aspart NOVOLOG *MODERATE* ALGORI... Q4 SC Last administered on 13:24; Admin Dose 4 UNIT; Start 09/13/16 at 13:00 Sodium Chloride 1,000 ml @ 125 mls/hr Q8H IV Last administered on 09/15/16 06 :13; Admin Dose 125 MLS/HR; Start 09/13/16 at 15:00 Ferric Sodium Gluconate Complex/ Sodium Chloride (Ferrlecit/NS) 110 ml @ 110 mls/hr Q24H IVPB ; Start 09/15/16 at 10:00; Stop 09/19/16 at 10:59 DEANNA MONSALVE Sep 15, 2016 10:36
[2016-09-15] MEDS: SOD FERRIC GLUC COMPLX 125 MG in SOD CHLORIDE 0.9% 100 ML IVPB SCH (11:19)
--- NOTE | 2016-09-15 11:30 | RADRPT ---
PROCEDURE: XR Chest. CLINICAL INDICATION: Shortness of breath. TECHNIQUE: A single portable view of the chest was obtained. COMPARISON: 09/12/2016 FINDINGS: An endotracheal tube is seen at the level of the haroon. Recommend retraction approximately 3 cm. The nasogastric tube and right internal jugular catheter are essentially unchanged. The cardiomedia stinal silhouette is within normal limits. Increase in size of right pleural effusion is seen. A pr obable small left pleural effusion is also noted. Diffuse pulmonary vascular congestion is seen whi ch is increased. The soft tissues and osseous structures are unremarkable. IMPRESSION: 1. Endotracheal tube at the level of the haroon. Recommend retraction approximately 3 cm. 2. Increase in size of a right pleural effusion as well as a small left pleural effusion. 3. Increased diffuse pulmonary vascular congestion. RPTAT: HPNM Results were discussed with the patient's nurse Rachel Contreras at 09/15/2016 11:29:58 AM Physician Laura Date Time Electronically viewed and signed by Harjeet Maher Physician on 09/15/2016 11:30 /
--- NOTE | 2016-09-15 13:34 | CONS ---
Date/Time of Note Date/Time of Note DATE: 09/15/16 TIME: 13:32 Assessment/Plan Assessment/Plan Additional Assessment/Plan 1. Positive troponin, assess significance, assess for true acute coronary syndrome.-mild uptrend in setting of renal failure - no intervention planned now , will monitor - CONSERVATIVE RX for now. 2. Hypotension, shock state. Rule out cardiac etiology-EF 45-50 by echo this admit - better now, con't supportive care - STABLE - now with increased edema - will hold IVF now. 3. Abnormal electrocardiogram, assess for acute coronary syndrome- no cp now, will monitor 4. Respiratory failure- acute, con't resp rx, intubated - stable 5. Leukocytosis- on anti-bx 6. Anemia- H/H stable - no significant active bleed noted 7. Thrombocytopenia. 8. Renal failure- acute on chronic, renal team follows 9. Bacteremia with gram negative rods- on anti-Bx Consultation Date/Type/Reason Admit Date/Time Sep 09, 2016 at 19:47 Initial Consult Date 09/11/16 Type of Consultation: Pulmonary/critical care Referring Provider: EMILIANO HENDRICKS 24 HR Interval Summary Free Text/Dictation Now with increased edema - will hold IVF now. NO ectopy on tele. ROS: No fever, no chills, no nausea, no vomiting, no diarrhea/constipation No recent weight changes No chest pain, no PND, no orthopnea No dizziness, blurred vision No thirst, no heat or cold intolerance (per nurse) Exam/Review of Systems Vital Signs Vitals Vital Signs Date Time Temp Pulse Resp B/P Pulse Ox O2 Delivery O2 Flow Rate FiO2 09/15/16 12:41 78 09/15/16 11:30 30 09/15/16 11:20 13 100 09/15/16 11:00 125/52 Mechanical Ventilator 09/15/16 04:00 98.3 09/11/16 08:00 5.0 Intake and Output 09/14/16 09/14/16 09/15/16 15:00 23:00 07:00 Intake Total 1110.64 ml 1160 ml 1000 ml Output Total 525 ml 560 ml 390 ml Balance 585.64 ml 600 ml 610 ml Exam General: WN/WD/NAD, AOx 0 HEENT: Unicetric/atraumatic/EOMI (does not follow commands) NECK: JVD elevated, no thyromegaly, intub Lymph: no lymphadenopathy HEART: regular with no S3, II/ systolic murmur at apex LUNGS: Coarse sounds ABD: soft, NT, ND, +BS : Intact Neuro: non focal SKIN: chronic changes EXT: increased edema Results Result Diagram: 09/15/16 0430 09/15/16 0430 Results 24 hrs Laboratory Tests Test 09/14/16 16:19 09/14/16 20:40 09/15/16 00:55 09/15/16 03:00 Bedside Glucose 114 100 112 Stool Occult Blood POSITIVE Test 09/15/16 04:30 09/15/16 05:02 09/15/16 08:51 Alanine Aminotransferase (ALT/SGPT) 37 Albumin 2.2 L Alkaline Phosphatase 184 H Anion Gap 14 Aspartate Amino Transf (AST/SGOT) 22 Basophils # 0.0 Basophils % 0.2 Blood Urea Nitrogen 53 H Calcium Level 7.3 L Carbon Dioxide Level 29 Chloride Level 94 L Creatinine 3.66 H Direct Bilirubin 0.00 Eosinophils # 0.1 Eosinophils % 0.8 Glucose Level 95 Hematocrit 29.2 L Hemoglobin 9.9 L Indirect Bilirubin 0.0 Lymphocytes # 1.3 Lymphocytes % 10.4 L Magnesium Level 1.9 Mean Corpuscular Hemoglobin 28.9 L Mean Corpuscular Hemoglobin Concent 33.9 Mean Corpuscular Volume 85.1 Mean Platelet Volume Monocytes # 0.9 Monocytes % 7.3 Neutrophils # 10.0 H Neutrophils % 80.7 H Nucleated Red Blood Cells # 0.0 Nucleated Red Blood Cells % 0.0 Phosphorus Level 3.6 Platelet Count 26 #*L Potassium Level 3.5 Red Blood Count 3.43 L Red Cell Distribution Width 14.9 H Sodium Level 133 L Total Bilirubin 0.0 L Total Protein 4.5 L White Blood Count 12.4 H Bedside Glucose 105 81 Medications Medications Current Medications Ondansetron HCl (Zofran Inj) 4 mg Q6H PRN IV NAUSEA AND/OR VOMITING Last administered on 09/10/16t 23:03; Admin Dose 4 MG; Start 09/09/16 at 20:00 Nitroglycerin (Nitroglycerin (Sl Tab) 0.4 Mg) 1 tab Q5M PRN SL CHEST PAIN; Start 09/09/16 at 20:00 Acetaminophen (Tylenol Liquid) 650 mg Q6H PRN PO PAIN LEVEL 1-3 OR FEVER; Start 09/09/16 at 20:00 Morphine Sulfate (morphine) 2 mg Q4H PRN IV PAIN LEVEL 7-10 Last administered on 09/10/16 23:03; Admin Dose 2 MG; Start 09/09/16 at 20:00 Lorazepam (Ativan) 1 mg Q2H PRN IV ANXIETY Last administered on 09/11/16 04:06 ; Admin Dose 1 MG; Start 09/09/16 at 20:00 Glucose (Glutose) 15 gm Q15M PRN PO DECREASED GLUCOSE; Start 09/09/16 at 20:30 Glucose (Glutose) 22.5 gm Q15M PRN PO DECREASED GLUCOSE; Start 09/09/16 at 20: 30 Dextrose (D50w Syringe) 25 ml Q15M PRN IV DECREASED GLUCOSE; Start 09/09/16 at 20:30 Dextrose (D50w Syringe) 50 ml Q15M PRN IV DECREASED GLUCOSE; Start 09/09/16 at 20:30 Glucagon (Glucagen) 1 mg Q15M PRN IM DECREASED GLUCOSE; Start 09/09/16 at 20:30 Glucose (Glutose) 15 gm Q15M PRN BUCCAL DECREASED GLUCOSE; Start 09/09/16 at 20 :30 Famotidine (Pepcid Iv) 20 mg DAILY IV Last administered on 09/15/16 09:04; Admin Dose 20 MG; Start 09/10/16 at 09:00 Docusate Sodium 100 mg 100 mg Q12H PO Last administered on 09/15/16 09:04; Admin Dose 100 MG; Start 09/10/16 at 20:00 Phenylephrine HCl 160 mg/Dextrose 500 ml @ 0 mls/hr TITRATE IV Last administered on 09/11/16 11:02; Admin Dose 28.12 MLS/HR; Start 09/10/16 at 19: 30 Norepinephrine 32 mg/Dextrose 250 ml @ 0.46 mls/hr TITRATE IV Last administered on 09/12/16 10:16; Admin Dose 14.05 MLS/HR; Start 09/10/16 at 22: 00 Midazolam HCl 50 ml @ 1 mls/hr TITRATE IV Last administered on 09/11/16 19:46 ; Admin Dose 2 MLS/HR; Start 09/11/16 at 08:30 Fentanyl (Sublimaze) 100 ml @ 2.5 mls/hr TITRATE IV Last administered on 22:50; Admin Dose 5 MLS/HR; Start 09/11/16 at 08:30 Aspirin 81 mg 81 mg DAILY PO Last administered on 09/15/16 09:04; Admin Dose 81 MG; Start 09/12/16 at 09:00 Levetiracetam 1000 mg/Dextrose 110 ml @ 440 mls/hr Q12 IVPB Last administered on 09/15/16 09:04; Admin Dose 440 MLS/HR; Start 09/12/16 at 11:30 Ceftriaxone Sodium (Rocephin) 50 ml @ 100 mls/hr Q24H IVPB Last administered on 09/14/16 16:10; Admin Dose 100 MLS/HR; Start 09/12/16 at 16:00 Insulin Aspart NOVOLOG *MODERATE* ALGORI... Q4 SC Last administered on 13:24; Admin Dose 4 UNIT; Start 09/13/16 at 13:00 Sodium Chloride 1,000 ml @ 125 mls/hr Q8H IV Last administered on 09/15/16 06 :13; Admin Dose 125 MLS/HR; Start 09/13/16 at 15:00 Ferric Sodium Gluconate Complex/ Sodium Chloride (Ferrlecit/NS) 110 ml @ 110 mls/hr Q24H IVPB Last administered on 09/15/16 11:19; Admin Dose 110 MLS/HR; Start 09/15/16 at 10:00; Stop 09/19/16 at 10:59 CHERI PATTEN MD Sep 15, 2016 13:34
--- NOTE | 2016-09-15 13:55 | CONS ---
Date/Time of Note Date/Time of Note DATE: 09/15/16 TIME: 13:32 Assessment/Plan Assessment/Plan Chief Complaint/Hosp Course ID PROGRESS NOTE TOTAL ABX DAY #7=> Ceftriaxone #4 s/p Vanco IV/Zosyn 24H INTERVAL SUMMARY * Obtunded on the Vent - family present - Afebrile, VSS, NAD * NEW: RUEXT forearm/wrist/hand edema w/erythema -US today (-)DVT * WBC up slightly, PLT down, no bleeing noted at trach, * CXR = unremarkable for acute process * CT Brain = age related changes: Mild periventricular white matter hypodensities are nonspecific but likely reflect chronic microvascular ischemic change. * 09/15/16 0430 09/15/16 0430 PHYSICAL EXAMINATION: GENERAL: VSS, NAD HEENT: ETT-> Secure to Vent, NGT -> Secure NECK: Supple, trachea midline. CHEST: Rise symmetrical, vented HEART: Pulse RRR ABDOMEN: Soft, benign EXTREMITIES: Warm ID ASSESSMENT 75 yo F seen in ICU with: 1. Severe GNR E.Coli septicemia with shock, (+Troponin bump, AMS, and multisystem organ failure. * GNR E/.Coli (+)BCx 09/09/16-> Repeat BCx 09/12/16 (-) 2. Complicated polymicrobial GNR Escherichia coli urinary tract infection w/ bacteremia 09/09/16 URINE CULTURE Final Organism 1 ESCHERICHIA COLI COLONY COUNT >100,000 CFU/ml Organism 2 ESCHERICHIA COLI#2 COLONY COUNT >100,000 CFU/ml 3. Acute respiratory failure. 4. Acute encephalopathy. 5. Acute renal failure with metabolic acidosis. 6. Coagulopathy with anemia and thrombocytopenia, possible DIC. 7. DM Type II 8/ NEW: RUEXT cellulitis forearm/wrist/hand edema w/erythema -US today (-)DVT (-)MRSA Nares INVASIVES: PIV, R-IJ TLC, ETT, NGT, FC ABX ALLERGY: KNDA CURRENT ABX: TOTAL ABX DAY #7=> Ceftriaxone #4 + Start Doxy for cellulitis s/p Vanco IV/Zosyn ID RECOMMENDATIONS 1. Continue Ceftriaxone to complete 14 day course for GNR septicemia = Today day #7/14 days 2. Doxy 100mg IV Q12 -> To cover RUEXT cellulitis 3. F/U final result BCx (-)48 hours . . Problems: Consultation Date/Type/Reason Admit Date/Time Sep 09, 2016 at 19:47 Initial Consult Date 09/13/16 Type of Consultation: ID Referring Provider: EMILIANO HENDRICKS Exam/Review of Systems Vital Signs Vitals Vital Signs Date Time Temp Pulse Resp B/P Pulse Ox O2 Delivery O2 Flow Rate FiO2 09/15/16 12:41 78 09/15/16 11:30 30 09/15/16 11:20 13 100 09/15/16 11:00 125/52 Mechanical Ventilator 09/15/16 04:00 98.3 09/11/16 08:00 5.0 Intake and Output 09/14/16 09/14/16 09/15/16 15:00 23:00 07:00 Intake Total 1110.64 ml 1160 ml 1000 ml Output Total 525 ml 560 ml 390 ml Balance 585.64 ml 600 ml 610 ml Results Result Diagram: 09/15/16 0430 09/15/16 0430 Results 24 hrs Laboratory Tests Test 09/14/16 16:19 09/14/16 20:40 09/15/16 00:55 09/15/16 03:00 Bedside Glucose 114 100 112 Stool Occult Blood POSITIVE Test 09/15/16 04:30 09/15/16 05:02 09/15/16 08:51 Alanine Aminotransferase (ALT/SGPT) 37 Albumin 2.2 L Alkaline Phosphatase 184 H Anion Gap 14 Aspartate Amino Transf (AST/SGOT) 22 Basophils # 0.0 Basophils % 0.2 Blood Urea Nitrogen 53 H Calcium Level 7.3 L Carbon Dioxide Level 29 Chloride Level 94 L Creatinine 3.66 H Direct Bilirubin 0.00 Eosinophils # 0.1 Eosinophils % 0.8 Glucose Level 95 Hematocrit 29.2 L Hemoglobin 9.9 L Indirect Bilirubin 0.0 Lymphocytes # 1.3 Lymphocytes % 10.4 L Magnesium Level 1.9 Mean Corpuscular Hemoglobin 28.9 L Mean Corpuscular Hemoglobin Concent 33.9 Mean Corpuscular Volume 85.1 Mean Platelet Volume Monocytes # 0.9 Monocytes % 7.3 Neutrophils # 10.0 H Neutrophils % 80.7 H Nucleated Red Blood Cells # 0.0 Nucleated Red Blood Cells % 0.0 Phosphorus Level 3.6 Platelet Count 26 #*L Potassium Level 3.5 Red Blood Count 3.43 L Red Cell Distribution Width 14.9 H Sodium Level 133 L Total Bilirubin 0.0 L Total Protein 4.5 L White Blood Count 12.4 H Bedside Glucose 105 81 Medications Medications Current Medications Ondansetron HCl (Zofran Inj) 4 mg Q6H PRN IV NAUSEA AND/OR VOMITING Last administered on 09/10/16 23:03; Admin Dose 4 MG; Start 09/09/16 at 20:00 Nitroglycerin (Nitroglycerin (Sl Tab) 0.4 Mg) 1 tab Q5M PRN SL CHEST PAIN; Start 09/09/16 at 20:00 Acetaminophen (Tylenol Liquid) 650 mg Q6H PRN PO PAIN LEVEL 1-3 OR FEVER; Start 09/09/16 at 20:00 Morphine Sulfate (morphine) 2 mg Q4H PRN IV PAIN LEVEL 7-10 Last administered on 09/10/16 23:03; Admin Dose 2 MG; Start 09/09/16 at 20:00 Lorazepam (Ativan) 1 mg Q2H PRN IV ANXIETY Last administered on 09/11/16 04:06 ; Admin Dose 1 MG; Start 09/09/16 at 20:00 Glucose (Glutose) 15 gm Q15M PRN PO DECREASED GLUCOSE; Start 09/09/16 at 20:30 Glucose (Glutose) 22.5 gm Q15M PRN PO DECREASED GLUCOSE; Start 09/09/16 at 20: 30 Dextrose (D50w Syringe) 25 ml Q15M PRN IV DECREASED GLUCOSE; Start 09/09/16 at 20:30 Dextrose (D50w Syringe) 50 ml Q15M PRN IV DECREASED GLUCOSE; Start 09/09/16 at 20:30 Glucagon (Glucagen) 1 mg Q15M PRN IM DECREASED GLUCOSE; Start 09/09/16 at 20:30 Glucose (Glutose) 15 gm Q15M PRN BUCCAL DECREASED GLUCOSE; Start 09/09/16 at 20 :30 Famotidine (Pepcid Iv) 20 mg DAILY IV Last administered on 09/15/16 09:04; Admin Dose 20 MG; Start 09/10/16 at 09:00 Docusate Sodium 100 mg 100 mg Q12H PO Last administered on 09/15/16 09:04; Admin Dose 100 MG; Start 09/10/16 at 20:00 Phenylephrine HCl 160 mg/Dextrose 500 ml @ 0 mls/hr TITRATE IV Last administered on 09/11/16 11:02; Admin Dose 28.12 MLS/HR; Start 09/10/16 at 19: 30 Norepinephrine 32 mg/Dextrose 250 ml @ 0.46 mls/hr TITRATE IV Last administered on 09/12/16 10:16; Admin Dose 14.05 MLS/HR; Start 09/10/16 at 22: 00 Midazolam HCl 50 ml @ 1 mls/hr TITRATE IV Last administered on 09/11/16 19:46 ; Admin Dose 2 MLS/HR; Start 09/11/16 at 08:30 Fentanyl (Sublimaze) 100 ml @ 2.5 mls/hr TITRATE IV Last administered on 22:50; Admin Dose 5 MLS/HR; Start 09/11/16 at 08:30 Aspirin 81 mg 81 mg DAILY PO Last administered on 09/15/16 09:04; Admin Dose 81 MG; Start 09/12/16 at 09:00 Levetiracetam 1000 mg/Dextrose 110 ml @ 440 mls/hr Q12 IVPB Last administered on 09/15/16 09:04; Admin Dose 440 MLS/HR; Start 09/12/16 at 11:30 Ceftriaxone Sodium (Rocephin) 50 ml @ 100 mls/hr Q24H IVPB Last administered on 09/14/16 16:10; Admin Dose 100 MLS/HR; Start 09/12/16 at 16:00 Insulin Aspart NOVOLOG *MODERATE* ALGORI... Q4 SC Last administered on 13:24; Admin Dose 4 UNIT; Start 09/13/16 at 13:00 Sodium Chloride 1,000 ml @ 125 mls/hr Q8H IV Last administered on 09/15/16 06 :13; Admin Dose 125 MLS/HR; Start 09/13/16 at 15:00 Ferric Sodium Gluconate Complex/ Sodium Chloride (Ferrlecit/NS) 110 ml @ 110 mls/hr Q24H IVPB Last administered on 09/15/16 11:19; Admin Dose 110 MLS/HR; Start 09/15/16 at 10:00; Stop 09/19/16 at 10:59 LEONARDA PIZARRO [employer] EMPLOYEE Sep 15, 2016 13:42
[2016-09-15] MEDS ORDERED: DOXYCYCLINE 100 MG in SOD CHLORIDE 0.9% 250 ML IVPB SCH (15:00)
[2016-09-15] MEDS: DOXYCYCLINE 100 MG in SOD CHLORIDE 0.9% 250 ML IVPB SCH ×2 (15:17→23:14)
[2016-09-15] MEDS ORDERED: ALBUMIN HUMAN 25% 100 ML IV ONE (16:30)
[2016-09-15] MEDS: CEFTRIAXONE 1 GM/50 ML (PMX) 50 ML IVPB SCH (16:38)
[2016-09-15] MEDS ORDERED: FUROSEMIDE 20 MG INJ IV ONE (17:30)
--- NOTE | 2016-09-15 19:40 | CONS ---
Date/Time of Note Date/Time of Note DATE: 09/15/16 TIME: 19:37 Assessment/Plan Assessment/Plan Chief Complaint/Hosp Course IMPRESSION: thrombocytopenia in pt with severe sepsis, exposed to multiple meds with pos thrombocytopenic effect, including VANCO, ZOSYN, HEPARIN,CEFAZOLIN NO EVIDENCE DIC s/p FFP yesterday and platelet transfusion today cont to monitor blood count closely transfuse if platelet count less [place] 11556, considering severe sepsis HIPA- NEG Leukocytosis. REACTIVE MONITOR Anemia. W-UP C/W ACD Severe Sepsis with septic shock / Ecoli UTI /Bacteremia Acute renal failure - / to ATN from sepsis Type II DM - Hyperglycemic on D5W Metabolic / Lactic acidosis / #1 Acute resp failure now ventilator dependent NSTEMI versus demand ischemia Positive troponin, assess significance, assess for true acute coronary syndrome. Metabolic acidosis respiratory failure, vent dependent incomplete database Thank you for allowing me to take part in the care of this patient. I will continue to follow along very closely with you. Further recommendations will be made as the patient progresses through her inpatient hospital clinical course. Problems: Consultation Date/Type/Reason Admit Date/Time Sep 09, 2016 at 19:47 Initial Consult Date 09/13/16 Type of Consultation: HEMEONC Reason for Consultation THROMBOCYTOPENIA Referring Provider: EMILIANO HENDRICKS 24 HR Interval Summary Free Text/Dictation ALL NOTED NO NEW EVENTS POST PLATELET TRANSFUSION COUNT STARTED TO DECLINE AGAIN NO BLEEDING Exam/Review of Systems Vital Signs Vitals Vital Signs Date Time Temp Pulse Resp B/P Pulse Ox O2 Delivery O2 Flow Rate FiO2 09/15/16 17:49 87 09/15/16 17:42 14 100 30 09/15/16 11:00 125/52 Mechanical Ventilator 09/15/16 04:00 98.3 09/11/16 08:00 5.0 Intake and Output 09/14/16 09/14/16 09/15/16 15:00 23:00 07:00 Intake Total 1110.64 ml 1160 ml 1000 ml Output Total 525 ml 560 ml 390 ml Balance 585.64 ml 600 ml 610 ml Exam General: WN/WD/NAD, AOx 0 HEENT: Unicetric/atraumatic/EOMI (does not follow commands) NECK: JVD elevated, no thyromegaly, intub Lymph: no lymphadenopathy HEART: regular with no S3, II/ systolic murmur at apex LUNGS: Coarse sounds ABD: soft, NT, ND, +BS : Intact Neuro: non focal SKIN: chronic changes EXT: increased edema Results Result Diagram: 09/15/16 0430 09/15/16 0430 Results 24 hrs Laboratory Tests Test 09/14/16 20:40 09/15/16 00:55 09/15/16 03:00 09/15/16 04:30 Bedside Glucose 100 112 Stool Occult Blood POSITIVE Alanine Aminotransferase (ALT/SGPT) 37 Albumin 2.2 L Alkaline Phosphatase 184 H Anion Gap 14 Aspartate Amino Transf (AST/SGOT) 22 Basophils # 0.0 Basophils % 0.2 Blood Urea Nitrogen 53 H Calcium Level 7.3 L Carbon Dioxide Level 29 Chloride Level 94 L Creatinine 3.66 H Direct Bilirubin 0.00 Eosinophils # 0.1 Eosinophils % 0.8 Glucose Level 95 Hematocrit 29.2 L Hemoglobin 9.9 L Indirect Bilirubin 0.0 Lymphocytes # 1.3 Lymphocytes % 10.4 L Magnesium Level 1.9 Mean Corpuscular Hemoglobin 28.9 L Mean Corpuscular Hemoglobin Concent 33.9 Mean Corpuscular Volume 85.1 Mean Platelet Volume Monocytes # 0.9 Monocytes % 7.3 Neutrophils # 10.0 H Neutrophils % 80.7 H Nucleated Red Blood Cells # 0.0 Nucleated Red Blood Cells % 0.0 Phosphorus Level 3.6 Platelet Count 26 #*L Potassium Level 3.5 Red Blood Count 3.43 L Red Cell Distribution Width 14.9 H Sodium Level 133 L Total Bilirubin 0.0 L Total Protein 4.5 L White Blood Count 12.4 H Test 09/15/16 05:02 09/15/16 08:51 09/15/16 13:38 09/15/16 17:10 Bedside Glucose 105 81 101 101 Medications Medications Current Medications Ondansetron HCl (Zofran Inj) 4 mg Q6H PRN IV NAUSEA AND/OR VOMITING Last administered on 09/10/16t 23:03; Admin Dose 4 MG; Start 09/09/16 at 20:00 Nitroglycerin (Nitroglycerin (Sl Tab) 0.4 Mg) 1 tab Q5M PRN SL CHEST PAIN; Start 09/09/16 at 20:00 Acetaminophen (Tylenol Liquid) 650 mg Q6H PRN PO PAIN LEVEL 1-3 OR FEVER; Start 09/09/16 at 20:00 Morphine Sulfate (morphine) 2 mg Q4H PRN IV PAIN LEVEL 7-10 Last administered on 09/10/16 23:03; Admin Dose 2 MG; Start 09/09/16 at 20:00 Lorazepam (Ativan) 1 mg Q2H PRN IV ANXIETY Last administered on 09/11/16 04:06 ; Admin Dose 1 MG; Start 09/09/16 at 20:00 Glucose (Glutose) 15 gm Q15M PRN PO DECREASED GLUCOSE; Start 09/09/16 at 20:30 Glucose (Glutose) 22.5 gm Q15M PRN PO DECREASED GLUCOSE; Start 09/09/16 at 20: 30 Dextrose (D50w Syringe) 25 ml Q15M PRN IV DECREASED GLUCOSE; Start 09/09/16 at 20:30 Dextrose (D50w Syringe) 50 ml Q15M PRN IV DECREASED GLUCOSE; Start 09/09/16 at 20:30 Glucagon (Glucagen) 1 mg Q15M PRN IM DECREASED GLUCOSE; Start 09/09/16 at 20:30 Glucose (Glutose) 15 gm Q15M PRN BUCCAL DECREASED GLUCOSE; Start 09/09/16 at 20 :30 Famotidine (Pepcid Iv) 20 mg DAILY IV Last administered on 09/15/16 09:04; Admin Dose 20 MG; Start 09/10/16 at 09:00 Docusate Sodium 100 mg 100 mg Q12H PO Last administered on 09/15/16 09:04; Admin Dose 100 MG; Start 09/10/16 at 20:00 Phenylephrine HCl 160 mg/Dextrose 500 ml @ 0 mls/hr TITRATE IV Last administered on 09/11/16 11:02; Admin Dose 28.12 MLS/HR; Start 09/10/16 at 19: 30 Norepinephrine/ Dextrose (Levophed/D5W) 250 ml @ 0.46 mls/hr TITRATE IV Last administered on 09/12/16 10:16; Admin Dose 14.05 MLS/HR; Start 09/10/16 at 22: 00 Aspirin 81 mg 81 mg DAILY PO Last administered on 09/15/16 09:04; Admin Dose 81 MG; Start 09/12/16 at 09:00 Ceftriaxone Sodium (Rocephin) 50 ml @ 100 mls/hr Q24H IVPB Last administered on 09/15/16 16:38; Admin Dose 100 MLS/HR; Start 09/12/16 at 16:00 Insulin Aspart NOVOLOG *MODERATE* ALGORI... Q4 SC Last administered on 13:24; Admin Dose 4 UNIT; Start 09/13/16 at 13:00 Ferric Sodium Gluconate Complex 125 mg/Sodium Chloride 110 ml @ 110 mls/hr Q24H IVPB Last administered on 09/15/16 11:19; Admin Dose 110 MLS/HR; Start at 10:00; Stop 09/19/16 at 10:59 Doxycycline Hyclate/Sodium Chloride (Vibramycin/NS) 250 ml @ 250 mls/hr Q12 IVPB Last administered on 09/15/16 15:17; Admin Dose 250 MLS/HR; Start at 15:00 JEFF FRANK MD Sep 15, 2016 19:39
--- NOTE | 2016-09-15 23:51 | RADRPT ---
PROCEDURE: XR Chest. CLINICAL INDICATION: Endotracheal tube adjustment. TECHNIQUE: Single frontal chest x-ray. COMPARISON: 09/15/2016 FINDINGS: Endotracheal tube tip is at the level aortic knob, 4.2 cm above haroon. The NG tube tip is at the d istal thoracic esophagus, unchanged... Right internal jugular central venous line tips in the SVC a ppear. The heart is normal in size. Pulmonary vessels are mildly engorged. There is a layering right pleural effusion with associated basilar atelectasis.. There is no pneumothorax. The osseous stru ctures are unremarkable. IMPRESSION: 1. Endotracheal tube retracted now approximately 4.2 cm above haroon. 2. NG tube tip at the distal thoracic esophagus. 3. Otherwise no change. Report called to ICU nurse Chloé 09-15-2016 23:48 RPTAT: HMVK .Rio Kaye MD, Date Time Electronically viewed and signed by .Rio Kaye MD, on 09/15/2016 23:51 .K/
[2016-09-16] VITALS (36 sets, daily range): BP systolic 128–166; BP diastolic 53–82; PULSE 79–97; RESP 15–28
[2016-09-16] MEDS: INSULIN ASPART [NOVOLOG] 3 ML PEN SC SCH ×6 (01:00→20:50)
[2016-09-16 04:55] LABS: ADD SCAN DIFF NO
[2016-09-16 05:04] LABS: ABNORMAL IP MESSAGE 1; BASOPHILS % 0.2 % (0.0-2.0); EOSINOPHILS # 0.1 10^3/ul (0.0-0.5); EOSINOPHILS % 0.5 % (0.0-7.0); HEMATOCRIT 26.5 % (37.0-47.0); HEMOGLOBIN 8.9 g/dl (12.0-16.0); LYMPHOCYTES # 1.1 10^3/ul (0.8-2.9); LYMPHOCYTES % 7.6 % (15.0-51.0); MEAN CORPUSCULAR HEMOGLOBIN 28.3 pg (29.0-33.0); MEAN CORPUSCULAR HGB CONC 33.6 g/dl (32.0-37.0); MEAN CORPUSCULAR VOLUME 84.4 fl (82.0-101.0); MONOCYTES % 7.5 % (0.0-11.0); NEUTROPHIL # 11.6 10^3/ul (1.6-7.5); NEUTROPHILS % 83.4 % (39.0-77.0); RED BLOOD COUNT 3.14 10^6/ul (4.20-5.40); RED CELL DISTRIBUTION WIDTH 14.6 % (11.5-14.5); WHITE BLOOD COUNT 13.9 10^3/ul (4.8-10.8)
[2016-09-16 05:09] LABS: PLATELET COUNT 38 10^3/UL (140-415)
[2016-09-16 05:13] LABS: INR 1.33; PROTIME 16.6 Sec (12.2-14.2); PT RATIO 1.3
[2016-09-16 05:14] LABS: PARTIAL THROMBOPLASTIN TIME 32.9 Sec (25.0-35.0)
[2016-09-16 05:29] LABS: POTASSIUM 3.4 mmol/L (3.5-5.1)
[2016-09-16 05:32] LABS: CREATININE 3.37 mg/dl (0.44-1.00)
[2016-09-16] MEDS: DOCUSATE SODIUM 100 MG CAP PO SCH ×2 (08:51→20:45)
[2016-09-16] MEDS: FAMOTIDINE 20 MG INJ IV SCH (08:51)
[2016-09-16] MEDS: ASPIRIN 81 MG TAB PO SCH (08:51)
[2016-09-16] MEDS: DOXYCYCLINE 100 MG in SOD CHLORIDE 0.9% 250 ML IVPB SCH ×2 (08:51→20:47)
--- NOTE | 2016-09-16 10:50 | CONS ---
Date/Time of Note Date/Time of Note DATE: 09/16/16 TIME: 10:47 Assessment/Plan Assessment/Plan Additional Assessment/Plan Ventilator settings are assist control of 16, tidal volume 450, PEEP of 0 30% FiO2. Assessment and recommendations; 1. Patient admitted with severe gram-negative sepsis from UTI. 2. Acute renal failure with improving serum creatinine. Patient maintaining adequate urine output. 3. Severe mental unresponsiveness with marked interval improvement as well. Patient empirically started on Keppra. 4. Thrombus cytopenia with stable platelet count. No overt bleeding noted. Next Continue current treatment. Ventilator settings have been adjusted. Patient has been switched over to SIMV with a rate of 12 pressure support 10and PEEP of 5, 30% FiO2. Patient also was assessed on CPAP mode and is currently not able to be weaned off from ventilator due to poor spontaneous minute ventilation. Require another 24 hours of supportive care. I did have a detailed discussion the patient's [id number] at bedside all throughout her questions. Consultation Date/Type/Reason Admit Date/Time Sep 09, 2016 at 19:47 Initial Consult Date 09/11/16 Type of Consultation: Pulmonary/critical care Referring Provider: EMILIANO HENDRICKS 24 HR Interval Summary Free Text/Dictation Patient condition remains critical however patient is improving on a daily basis. Mental status also is improving substantially. Patient always readily arousable and follows simple commands. General examination; elderly lady, orally intubated, currently in no distress. Awake and alert. Exam/Review of Systems Vital Signs Vitals Vital Signs Date Time Temp Pulse Resp B/P Pulse Ox O2 Delivery O2 Flow Rate FiO2 09/16/16 10:00 89 23 146/69 98 Mechanical Ventilator 09/16/16 09:35 30 09/16/16 08:00 97.9 Intake and Output 09/15/16 09/15/16 09/16/16 15:00 23:00 07:00 Intake Total 625 ml 740 ml 660 ml Output Total 660 ml 800 ml 750 ml Balance -35 ml -60 ml -90 ml Exam HEENT examination; supple neck, no JVD. No lymphadenopathy. Midline trachea. No thyromegaly. Orally intubated. Pupils are small bilaterally. Chest examination; clear to auscultation bilaterally. S1-S2 audible, no murmurs. Regular rhythm. Abdomen examination; soft, nondistended. No organomegaly. Bowel sounds audible. Extremity examination; no peripheral edema. GETTER WELDER examination; patient is awake and follows simple commands. Results Result Diagram: 09/16/16 0430 09/16/16 0430 Results 24 hrs Laboratory Tests Test 09/15/16 13:38 09/15/16 17:10 09/15/16 20:24 09/16/16 01:18 Bedside Glucose 101 101 96 134 Test 09/16/16 04:30 09/16/16 05:35 09/16/16 07:50 Activated Partial Thromboplast Time 32.9 Anion Gap 17 H Basophils # 0.0 Basophils % 0.2 Blood Urea Nitrogen 53 H Calcium Level 8.0 L Carbon Dioxide Level 29 Chloride Level 97 Creatinine 3.37 H Eosinophils # 0.1 Eosinophils % 0.5 Glucose Level 119 Hematocrit 26.5 L Hemoglobin 8.9 L INR International Normalized Ratio 1.33 Lymphocytes # 1.1 Lymphocytes % 7.6 L Mean Corpuscular Hemoglobin 28.3 L Mean Corpuscular Hemoglobin Concent 33.6 Mean Corpuscular Volume 84.4 Mean Platelet Volume Monocytes # 1.0 H Monocytes % 7.5 Neutrophils # 11.6 H Neutrophils % 83.4 H Nucleated Red Blood Cells # 0.0 Nucleated Red Blood Cells % 0.0 Platelet Count 38 #L Potassium Level 3.4 L Prothrombin Time 16.6 H Prothrombin Time Ratio 1.3 Red Blood Count 3.14 L Red Cell Distribution Width 14.6 H Sodium Level 140 White Blood Count 13.9 H Bedside Glucose 140 176 Medications Medications Current Medications Ondansetron HCl (Zofran Inj) 4 mg Q6H PRN IV NAUSEA AND/OR VOMITING Last administered on 09/10/16 23:03; Admin Dose 4 MG; Start 09/09/16 at 20:00 Nitroglycerin (Nitroglycerin (Sl Tab) 0.4 Mg) 1 tab Q5M PRN SL CHEST PAIN; Start 09/09/16 at 20:00 Acetaminophen (Tylenol Liquid) 650 mg Q6H PRN PO PAIN LEVEL 1-3 OR FEVER; Start 09/09/16 at 20:00 Morphine Sulfate (morphine) 2 mg Q4H PRN IV PAIN LEVEL 7-10 Last administered on 09/10/16 23:03; Admin Dose 2 MG; Start 09/09/16 at 20:00 Lorazepam (Ativan) 1 mg Q2H PRN IV ANXIETY Last administered on 09/11/16 04:06 ; Admin Dose 1 MG; Start 09/09/16 at 20:00 Glucose (Glutose) 15 gm Q15M PRN PO DECREASED GLUCOSE; Start 09/09/16 at 20:30 Glucose (Glutose) 22.5 gm Q15M PRN PO DECREASED GLUCOSE; Start 09/09/16 at 20: 30 Dextrose (D50w Syringe) 25 ml Q15M PRN IV DECREASED GLUCOSE; Start 09/09/16 at 20:30 Dextrose (D50w Syringe) 50 ml Q15M PRN IV DECREASED GLUCOSE; Start 09/09/16 at 20:30 Glucagon (Glucagen) 1 mg Q15M PRN IM DECREASED GLUCOSE; Start 09/09/16 at 20:30 Glucose (Glutose) 15 gm Q15M PRN BUCCAL DECREASED GLUCOSE; Start 09/09/16 at 20 :30 Famotidine (Pepcid Iv) 20 mg DAILY IV Last administered on 09/16/16 08:51; Admin Dose 20 MG; Start 09/10/16 at 09:00 Docusate Sodium 100 mg 100 mg Q12H PO Last administered on 09/16/16 08:51; Admin Dose 100 MG; Start 09/10/16 at 20:00 Phenylephrine HCl 160 mg/Dextrose 500 ml @ 0 mls/hr TITRATE IV Last administered on 09/11/16 11:02; Admin Dose 28.12 MLS/HR; Start 09/10/16 at 19: 30 Norepinephrine/ Dextrose (Levophed/D5W) 250 ml @ 0.46 mls/hr TITRATE IV Last administered on 09/12/16 10:16; Admin Dose 14.05 MLS/HR; Start 09/10/16 at 22: 00 Aspirin 81 mg 81 mg DAILY PO Last administered on 09/16/16 08:51; Admin Dose 81 MG; Start 09/12/16 at 09:00 Ceftriaxone Sodium (Rocephin) 50 ml @ 100 mls/hr Q24H IVPB Last administered on 09/15/16 16:38; Admin Dose 100 MLS/HR; Start 09/12/16 at 16:00 Insulin Aspart NOVOLOG *MODERATE* ALGORI... Q4 SC Last administered on 08:55; Admin Dose 2 UNIT; Start 09/13/16 at 13:00 Ferric Sodium Gluconate Complex 125 mg/Sodium Chloride 110 ml @ 110 mls/hr Q24H IVPB Last administered on 09/15/16 11:19; Admin Dose 110 MLS/HR; Start at 10:00; Stop 09/19/16 at 10:59 Doxycycline Hyclate/Sodium Chloride (Vibramycin/NS) 250 ml @ 250 mls/hr Q12 IVPB Last administered on 09/16/16 08:51; Admin Dose 250 MLS/HR; Start at 15:00 DEANNA MONSALVE Sep 16, 2016 10:50
[2016-09-16] MEDS: SOD FERRIC GLUC COMPLX 125 MG in SOD CHLORIDE 0.9% 100 ML IVPB SCH (10:56)
--- NOTE | 2016-09-16 11:03 | CONS ---
Date/Time of Note Date/Time of Note DATE: 09/16/16 TIME: 11:02 Assessment/Plan Assessment/Plan Additional Assessment/Plan 1. Positive troponin, assess significance, assess for true acute coronary syndrome.-mild uptrend in setting of renal failure - no intervention planned now , will monitor - CONSERVATIVE RX for now. No intervention planned. 2. Hypotension, shock state. Rule out cardiac etiology-EF 45-50 by echo this admit - better now, con't supportive care - STABLE - now with increased edema - will hold IVF now. 3. Abnormal electrocardiogram, assess for acute coronary syndrome- no cp now, will monitor - SINUS NOW - 80s 4. Respiratory failure- acute, con't resp rx, intubated - stable 5. Leukocytosis- on anti-bx 6. Anemia- H/H stable - no significant active bleed noted - no change 7. Thrombocytopenia. 8. Renal failure- acute on chronic, renal team follows 9. Bacteremia with gram negative rods- on anti-Bx Consultation Date/Type/Reason Admit Date/Time Sep 09, 2016 at 19:47 Initial Consult Date 09/11/16 Type of Consultation: Pulmonary/critical care Referring Provider: EMILIANO HENDRICKS 24 HR Interval Summary Free Text/Dictation NO acute change - con't resp Rx - in sinus now. ROS: No fever, no chills, no nausea, no vomiting, no diarrhea/constipation No recent weight changes No chest pain, no PND, no orthopnea No dizziness, blurred vision No thirst, no heat or cold intolerance (per nurse) Exam/Review of Systems Vital Signs Vitals Vital Signs Date Time Temp Pulse Resp B/P Pulse Ox O2 Delivery O2 Flow Rate FiO2 09/16/16 10:00 89 23 146/69 98 Mechanical Ventilator 09/16/16 09:35 30 09/16/16 08:00 97.9 Intake and Output 09/15/16 09/15/16 09/16/16 15:00 23:00 07:00 Intake Total 625 ml 740 ml 660 ml Output Total 660 ml 800 ml 750 ml Balance -35 ml -60 ml -90 ml Exam General: WN/WD/NAD, AOx 0 HEENT: Unicetric/atraumatic/EOMI (does not follow commands) NECK: JVD elevated, no thyromegaly, intub Lymph: no lymphadenopathy HEART: regular with no S3, II/ systolic murmur at apex LUNGS: Coarse sounds ABD: soft, NT, ND, +BS : Intact Neuro: non focal SKIN: chronic changes EXT: trace edema Results Result Diagram: 09/16/16 0430 09/16/16 0430 Results 24 hrs Laboratory Tests Test 09/15/16 13:38 09/15/16 17:10 09/15/16 20:24 09/16/16 01:18 Bedside Glucose 101 101 96 134 Test 09/16/16 04:30 09/16/16 05:35 09/16/16 07:50 Activated Partial Thromboplast Time 32.9 Anion Gap 17 H Basophils # 0.0 Basophils % 0.2 Blood Urea Nitrogen 53 H Calcium Level 8.0 L Carbon Dioxide Level 29 Chloride Level 97 Creatinine 3.37 H Eosinophils # 0.1 Eosinophils % 0.5 Glucose Level 119 Hematocrit 26.5 L Hemoglobin 8.9 L INR International Normalized Ratio 1.33 Lymphocytes # 1.1 Lymphocytes % 7.6 L Mean Corpuscular Hemoglobin 28.3 L Mean Corpuscular Hemoglobin Concent 33.6 Mean Corpuscular Volume 84.4 Mean Platelet Volume Monocytes # 1.0 H Monocytes % 7.5 Neutrophils # 11.6 H Neutrophils % 83.4 H Nucleated Red Blood Cells # 0.0 Nucleated Red Blood Cells % 0.0 Platelet Count 38 #L Potassium Level 3.4 L Prothrombin Time 16.6 H Prothrombin Time Ratio 1.3 Red Blood Count 3.14 L Red Cell Distribution Width 14.6 H Sodium Level 140 White Blood Count 13.9 H Bedside Glucose 140 176 Medications Medications Current Medications Ondansetron HCl (Zofran Inj) 4 mg Q6H PRN IV NAUSEA AND/OR VOMITING Last administered on 09/10/16 23:03; Admin Dose 4 MG; Start 09/09/16 at 20:00 Nitroglycerin (Nitroglycerin (Sl Tab) 0.4 Mg) 1 tab Q5M PRN SL CHEST PAIN; Start 09/09/16 at 20:00 Acetaminophen (Tylenol Liquid) 650 mg Q6H PRN PO PAIN LEVEL 1-3 OR FEVER; Start 09/09/16 at 20:00 Morphine Sulfate (morphine) 2 mg Q4H PRN IV PAIN LEVEL 7-10 Last administered on 09/10/16 23:03; Admin Dose 2 MG; Start 09/09/16 at 20:00 Lorazepam (Ativan) 1 mg Q2H PRN IV ANXIETY Last administered on 09/11/16 04:06 ; Admin Dose 1 MG; Start 09/09/16 at 20:00 Glucose (Glutose) 15 gm Q15M PRN PO DECREASED GLUCOSE; Start 09/09/16 at 20:30 Glucose (Glutose) 22.5 gm Q15M PRN PO DECREASED GLUCOSE; Start 09/09/16 at 20: 30 Dextrose (D50w Syringe) 25 ml Q15M PRN IV DECREASED GLUCOSE; Start 09/09/16 at 20:30 Dextrose (D50w Syringe) 50 ml Q15M PRN IV DECREASED GLUCOSE; Start 09/09/16 at 20:30 Glucagon (Glucagen) 1 mg Q15M PRN IM DECREASED GLUCOSE; Start 09/09/16 at 20:30 Glucose (Glutose) 15 gm Q15M PRN BUCCAL DECREASED GLUCOSE; Start 09/09/16 at 20 :30 Famotidine (Pepcid Iv) 20 mg DAILY IV Last administered on 09/16/16 08:51; Admin Dose 20 MG; Start 09/10/16 at 09:00 Docusate Sodium 100 mg 100 mg Q12H PO Last administered on 09/16/16 08:51; Admin Dose 100 MG; Start 09/10/16 at 20:00 Phenylephrine HCl 160 mg/Dextrose 500 ml @ 0 mls/hr TITRATE IV Last administered on 09/11/16 11:02; Admin Dose 28.12 MLS/HR; Start 09/10/16 at 19: 30 Norepinephrine/ Dextrose (Levophed/D5W) 250 ml @ 0.46 mls/hr TITRATE IV Last administered on 09/12/16 10:16; Admin Dose 14.05 MLS/HR; Start 09/10/16 at 22: 00 Aspirin 81 mg 81 mg DAILY PO Last administered on 09/16/16 08:51; Admin Dose 81 MG; Start 09/12/16 at 09:00 Ceftriaxone Sodium (Rocephin) 50 ml @ 100 mls/hr Q24H IVPB Last administered on 09/15/16 16:38; Admin Dose 100 MLS/HR; Start 09/12/16 at 16:00 Insulin Aspart NOVOLOG *MODERATE* ALGORI... Q4 SC Last administered on 08:55; Admin Dose 2 UNIT; Start 09/13/16 at 13:00 Ferric Sodium Gluconate Complex 125 mg/Sodium Chloride 110 ml @ 110 mls/hr Q24H IVPB Last administered on 09/16/16 10:56; Admin Dose 110 MLS/HR; Start at 10:00; Stop 09/19/16 at 10:59 Doxycycline Hyclate/Sodium Chloride (Vibramycin/NS) 250 ml @ 250 mls/hr Q12 IVPB Last administered on 09/16/16 08:51; Admin Dose 250 MLS/HR; Start at 15:00 CHERI PATTEN MD Sep 16, 2016 11:03
--- NOTE | 2016-09-16 13:32 | PN ---
DATE: 09/16/2016 SUBJECTIVE: No acute changes overnight. The patient is on SIMV mode. She is off pressors, looks c omfortable. Family at bedside. No fevers. VITAL SIGNS: Temperature 97.9, pulse 89, respirations 23, blood pressure 146/69, saturation 98 on 3 0 FIO2. WBC 13.9, H and H 8.9 and 26.5, platelets 38, neutrophils 83.4, BUN 53, creatinine 3.37. MICROBIOLOGY: Repeat blood culture on 09/12/2016 remains negative. INDWELLINGS: The patient has endotracheal tube, NG tube, Alaniz catheter, right IJ triple-lumen cath eter. ANTIMICROBIALS: She is on: 1. Doxycycline 2. Rocephin. PHYSICAL EXAMINATION: GENERAL: This is a fragile, elderly woman who is in no distress. HEENT: Head atraumatic, normocephalic. Sclerae anicteric. Buccal mucosa dry. NECK: Supple, trachea midline. CHEST: Rise symmetrical. Breath sounds diminished to bases. HEART: S1, S2. ABDOMEN: Soft, bowel tones present. EXTREMITIES: Without cyanosis. Right upper extremity with erythema. ASSESSMENT: 1. Severe sepsis status post shock. 2. Escherichia coli urinary tract infection with bacteremia. 3. Right upper extremity cellulitis. 4. Acute kidney injury, possibly chronic kidney disease. 5. Acute encephalopathy. 6. Anemia with severe thrombocytopenia. 7. Coagulopathy. PLAN: The patient remains stable off pressors, covered with appropriate antimicrobials. Repeat blo od cultures negative. Continue present care, weaning trials as per pulmonary. Blood products p.r.n . Dictated By: CHLOE MONROY [facility] EMT for DELANO RODRIGUEZ/NTS Conf#: [id number] DID#: [id number]
--- NOTE | 2016-09-16 14:32 | PN ---
Date/Time of Note Date/Time of Note DATE: 09/16/16 TIME: 14:32 Assessment/Plan VTE Prophylaxis VTE Prophylaxis Intervention: SCD's VTE Contraindication Reason: thrombocytopenia Lines/Catheters IV Catheter Type (from Nrsg): Central Line Central line still needed: Yes Urinary Cath still in place: Yes Reason Cath still needed: urinary retention Assessment/Plan Chief Complaint/Hosp Course Assessment/Plan: 75 yo female with a past medical history of type II DM, chronic pain who complains of weakness and decreased urinary output for the last several days, found with septic shock. 1. Severe Sepsis with septic shock - 2/2 Ecoli UTI /Bacteremia - received pressors earlier, now off, and on abx. - Continue broad spectrum abx / Appreciate ID consult - Continue ICU care 2. Acute renal failure r/o CKD- 2/2 to ATN from sepsis 3. Type II DM - controlled on SSI - SSI only for now 4. Metabolic / Lactic acidosis 2/2 #1: resolved 5. Acute resp failure now ventilator dependent - on SIMV presently - Continue Vent mgt/appreciate pulm input - wean off as tolerated 6. NSTEMI versus - Daily aspirin / no BB or Acei for now 2/2 hypotension /Appreciate Cardiology consultdemand ischemia 7. new onset thrombocytopenia: per heme Onc does not appear to be DIC. possibly is sec to sepsis and per per Heme/Onc, pt was also exposed to multiple meds with pos thrombocytopenic effect, including VANCO, ZOSYN, HEPARIN,CEFAZOLIN. HIT antibody negative/ s/p FFP and platelet transfusion. - monitor for now, transfuse if plts < 20,000 per heme/Onc rec's. 8. Severe Iron deficiency: pt also now with + occult test stool. No signs of GI bleeding presently. - IV iron infusion - will consult GI as well. PROPHYLAXIS: Pepcid / SCDS CRITICAL CARE TIME: 40 mins Problems: Subjective 24 Hr Interval Summary Free Text/Dictation Still intubated (on SIMV). Exam/Review of Systems Vital Signs Vitals Vital Signs Date Time Temp Pulse Resp B/P Pulse Ox O2 Delivery O2 Flow Rate FiO2 09/16/16 13:05 76 18 99 30 09/16/16 10:00 146/69 Mechanical Ventilator 09/16/16 08:00 97.9 Intake and Output 09/15/16 09/15/16 09/16/16 15:00 23:00 07:00 Intake Total 625 ml 740 ml 660 ml Output Total 660 ml 800 ml 750 ml Balance -35 ml -60 ml -90 ml Exam Constitutional: frail, No alert, No oriented, intubated Head: normocephalic Eyes: PERRL, icteric ENMT: intubated Respiratory: clear to auscultation, diminished breath sounds Cardiovascular: regular rate and rhythm, No murmurs/extra sounds Gastrointestinal: bowel sounds, distended, other (large periumbilical hernia), soft Genitourinary - Female: other (montoya draining clear urine) Extremities: No edema Neurological: No nl mental status Results Result Diagram: 09/16/1642909/16/16 043 Results 24 hrs Laboratory Tests Test 09/15/16 17:10 09/15/16 20:24 09/16/16 01:18 09/16/16 04:30 Bedside Glucose 101 96 134 Activated Partial Thromboplast Time 32.9 Anion Gap 17 H Basophils # 0.0 Basophils % 0.2 Blood Urea Nitrogen 53 H Calcium Level 8.0 L Carbon Dioxide Level 29 Chloride Level 97 Creatinine 3.37 H Eosinophils # 0.1 Eosinophils % 0.5 Glucose Level 119 Hematocrit 26.5 L Hemoglobin 8.9 L INR International Normalized Ratio 1.33 Lymphocytes # 1.1 Lymphocytes % 7.6 L Mean Corpuscular Hemoglobin 28.3 L Mean Corpuscular Hemoglobin Concent 33.6 Mean Corpuscular Volume 84.4 Mean Platelet Volume Monocytes # 1.0 H Monocytes % 7.5 Neutrophils # 11.6 H Neutrophils % 83.4 H Nucleated Red Blood Cells # 0.0 Nucleated Red Blood Cells % 0.0 Platelet Count 38 #L Potassium Level 3.4 L Prothrombin Time 16.6 H Prothrombin Time Ratio 1.3 Red Blood Count 3.14 L Red Cell Distribution Width 14.6 H Sodium Level 140 White Blood Count 13.9 H Test 09/16/16 05:35 09/16/16 07:50 09/16/16 12:01 Bedside Glucose 140 176 160 Medications Medications Current Medications Ondansetron HCl (Zofran Inj) 4 mg Q6H PRN IV NAUSEA AND/OR VOMITING Last administered on 09/10/16t 23:03; Admin Dose 4 MG; Start 09/09/16 at 20:00 Nitroglycerin (Nitroglycerin (Sl Tab) 0.4 Mg) 1 tab Q5M PRN SL CHEST PAIN; Start 09/09/16 at 20:00 Acetaminophen (Tylenol Liquid) 650 mg Q6H PRN PO PAIN LEVEL 1-3 OR FEVER; Start 09/09/16 at 20:00 Morphine Sulfate (morphine) 2 mg Q4H PRN IV PAIN LEVEL 7-10 Last administered on 09/10/16 23:03; Admin Dose 2 MG; Start 09/09/16 at 20:00 Lorazepam (Ativan) 1 mg Q2H PRN IV ANXIETY Last administered on 09/11/16 04:06 ; Admin Dose 1 MG; Start 09/09/16 at 20:00 Glucose (Glutose) 15 gm Q15M PRN PO DECREASED GLUCOSE; Start 09/09/16 at 20:30 Glucose (Glutose) 22.5 gm Q15M PRN PO DECREASED GLUCOSE; Start 09/09/16 at 20: 30 Dextrose (D50w Syringe) 25 ml Q15M PRN IV DECREASED GLUCOSE; Start 09/09/16 at 20:30 Dextrose (D50w Syringe) 50 ml Q15M PRN IV DECREASED GLUCOSE; Start 09/09/16 at 20:30 Glucagon (Glucagen) 1 mg Q15M PRN IM DECREASED GLUCOSE; Start 09/09/16 at 20:30 Glucose (Glutose) 15 gm Q15M PRN BUCCAL DECREASED GLUCOSE; Start 09/09/16 at 20 :30 Famotidine (Pepcid Iv) 20 mg DAILY IV Last administered on 09/16/16 08:51; Admin Dose 20 MG; Start 09/10/16 at 09:00 Docusate Sodium 100 mg 100 mg Q12H PO Last administered on 09/16/16 08:51; Admin Dose 100 MG; Start 09/10/16 at 20:00 Phenylephrine HCl 160 mg/Dextrose 500 ml @ 0 mls/hr TITRATE IV Last administered on 09/11/16 11:02; Admin Dose 28.12 MLS/HR; Start 09/10/16 at 19: 30 Norepinephrine/ Dextrose (Levophed/D5W) 250 ml @ 0.46 mls/hr TITRATE IV Last administered on 09/12/16 10:16; Admin Dose 14.05 MLS/HR; Start 09/10/16 at 22: 00 Aspirin 81 mg 81 mg DAILY PO Last administered on 09/16/16 08:51; Admin Dose 81 MG; Start 09/12/16 at 09:00 Ceftriaxone Sodium (Rocephin) 50 ml @ 100 mls/hr Q24H IVPB Last administered on 09/15/16 16:38; Admin Dose 100 MLS/HR; Start 09/12/16 at 16:00 Insulin Aspart NOVOLOG *MODERATE* ALGORI... Q4 SC Last administered on 12:24; Admin Dose 2 UNIT; Start 09/13/16 at 13:00 Ferric Sodium Gluconate Complex 125 mg/Sodium Chloride 110 ml @ 110 mls/hr Q24H IVPB Last administered on 09/16/16 10:56; Admin Dose 110 MLS/HR; Start at 10:00; Stop 09/19/16 at 10:59 Doxycycline Hyclate/Sodium Chloride (Vibramycin/NS) 250 ml @ 250 mls/hr Q12 IVPB Last administered on 09/16/16 08:51; Admin Dose 250 MLS/HR; Start at 15:00 MARIO ALBERTO CLAUDIO Sep 16, 2016 14:32
[2016-09-16] MEDS ORDERED: POTASSIUM CHLORIDE (SR) 10 MEQ TAB PO ONE (16:30)
--- NOTE | 2016-09-16 16:31 | CONS ---
Date/Time of Note Date/Time of Note DATE: 09/16/16 TIME: 16:29 Assessment/Plan Assessment/Plan Chief Complaint/Hosp Course IMPRESSION: 1. Patient has acute kidney injury./atn 2. Patient has acute kidney injury possibly due to severe hypotension and sepsis. 3. Patient has acute tubular necrosis multifactorial. 4.. Patient has leukocytosis, anemia, thrombocytopenia. The patient has Escherichia coli bacteremia, E. coli urinary tract infection. 5 hypokalemia 6 vdrf plan iv fluid ck bmp kcl Problems: Consultation Date/Type/Reason Admit Date/Time Sep 09, 2016 at 19:47 Initial Consult Date 09/11/16 Type of Consultation: renal Referring Provider: EMILIANO HENDRICKS 24 HR Interval Summary Constitutional: no complaints Exam/Review of Systems Vital Signs Vitals Vital Signs Date Time Temp Pulse Resp B/P Pulse Ox O2 Delivery O2 Flow Rate FiO2 09/16/16 16:00 80 09/16/16 13:05 18 99 30 09/16/16 10:00 146/69 Mechanical Ventilator 09/16/16 08:00 97.9 Intake and Output 09/15/16 09/15/16 09/16/16 15:00 23:00 07:00 Intake Total 625 ml 740 ml 660 ml Output Total 660 ml 800 ml 750 ml Balance -35 ml -60 ml -90 ml Exam Respiratory: clear to auscultation Cardiovascular: regular rate and rhythm Gastrointestinal: soft Musculoskeletal: nl extremities to inspection Results Result Diagram: 09/16/16 0430 09/16/16 0430 Results 24 hrs Laboratory Tests Test 09/15/16 17:10 09/15/16 20:24 09/16/16 01:18 09/16/16 04:30 Bedside Glucose 101 96 134 Activated Partial Thromboplast Time 32.9 Anion Gap 17 H Basophils # 0.0 Basophils % 0.2 Blood Urea Nitrogen 53 H Calcium Level 8.0 L Carbon Dioxide Level 29 Chloride Level 97 Creatinine 3.37 H Eosinophils # 0.1 Eosinophils % 0.5 Glucose Level 119 Hematocrit 26.5 L Hemoglobin 8.9 L INR International Normalized Ratio 1.33 Lymphocytes # 1.1 Lymphocytes % 7.6 L Mean Corpuscular Hemoglobin 28.3 L Mean Corpuscular Hemoglobin Concent 33.6 Mean Corpuscular Volume 84.4 Mean Platelet Volume Monocytes # 1.0 H Monocytes % 7.5 Neutrophils # 11.6 H Neutrophils % 83.4 H Nucleated Red Blood Cells # 0.0 Nucleated Red Blood Cells % 0.0 Platelet Count 38 #L Potassium Level 3.4 L Prothrombin Time 16.6 H Prothrombin Time Ratio 1.3 Red Blood Count 3.14 L Red Cell Distribution Width 14.6 H Sodium Level 140 White Blood Count 13.9 H Test 09/16/16 05:35 09/16/16 07:50 09/16/16 12:01 Bedside Glucose 140 176 160 Medications Medications Current Medications Ondansetron HCl (Zofran Inj) 4 mg Q6H PRN IV NAUSEA AND/OR VOMITING Last administered on 09/10/16 23:03; Admin Dose 4 MG; Start 09/09/16 at 20:00 Nitroglycerin (Nitroglycerin (Sl Tab) 0.4 Mg) 1 tab Q5M PRN SL CHEST PAIN; Start 09/09/16 at 20:00 Acetaminophen (Tylenol Liquid) 650 mg Q6H PRN PO PAIN LEVEL 1-3 OR FEVER; Start 09/09/16 at 20:00 Morphine Sulfate (morphine) 2 mg Q4H PRN IV PAIN LEVEL 7-10 Last administered on 09/10/16 23:03; Admin Dose 2 MG; Start 09/09/16 at 20:00 Lorazepam (Ativan) 1 mg Q2H PRN IV ANXIETY Last administered on 09/11/16 04:06 ; Admin Dose 1 MG; Start 09/09/16 at 20:00 Glucose (Glutose) 15 gm Q15M PRN PO DECREASED GLUCOSE; Start 09/09/16 at 20:30 Glucose (Glutose) 22.5 gm Q15M PRN PO DECREASED GLUCOSE; Start 09/09/16 at 20: 30 Dextrose (D50w Syringe) 25 ml Q15M PRN IV DECREASED GLUCOSE; Start 09/09/16 at 20:30 Dextrose (D50w Syringe) 50 ml Q15M PRN IV DECREASED GLUCOSE; Start 09/09/16 at 20:30 Glucagon (Glucagen) 1 mg Q15M PRN IM DECREASED GLUCOSE; Start 09/09/16 at 20:30 Glucose (Glutose) 15 gm Q15M PRN BUCCAL DECREASED GLUCOSE; Start 09/09/16 at 20 :30 Famotidine (Pepcid Iv) 20 mg DAILY IV Last administered on 09/16/16 08:51; Admin Dose 20 MG; Start 09/10/16 at 09:00 Docusate Sodium 100 mg 100 mg Q12H PO Last administered on 09/16/16 08:51; Admin Dose 100 MG; Start 09/10/16 at 20:00 Phenylephrine HCl 160 mg/Dextrose 500 ml @ 0 mls/hr TITRATE IV Last administered on 09/11/16 11:02; Admin Dose 28.12 MLS/HR; Start 09/10/16 at 19: 30 Norepinephrine/ Dextrose (Levophed/D5W) 250 ml @ 0.46 mls/hr TITRATE IV Last administered on 09/12/16 10:16; Admin Dose 14.05 MLS/HR; Start 09/10/16 at 22: 00 Aspirin 81 mg 81 mg DAILY PO Last administered on 09/16/16 08:51; Admin Dose 81 MG; Start 09/12/16 at 09:00 Ceftriaxone Sodium (Rocephin) 50 ml @ 100 mls/hr Q24H IVPB Last administered on 09/15/16 16:38; Admin Dose 100 MLS/HR; Start 09/12/16 at 16:00 Insulin Aspart NOVOLOG *MODERATE* ALGORI... Q4 SC Last administered on 12:24; Admin Dose 2 UNIT; Start 09/13/16 at 13:00 Ferric Sodium Gluconate Complex 125 mg/Sodium Chloride 110 ml @ 110 mls/hr Q24H IVPB Last administered on 09/16/16 10:56; Admin Dose 110 MLS/HR; Start at 10:00; Stop 09/19/16 at 10:59 Doxycycline Hyclate/Sodium Chloride (Vibramycin/NS) 250 ml @ 250 mls/hr Q12 IVPB Last administered on 09/16/16 08:51; Admin Dose 250 MLS/HR; Start at 15:00 QUITA SCHOFIELD MD Sep 16, 2016 16:31
[2016-09-16] MEDS: CEFTRIAXONE 1 GM/50 ML (PMX) 50 ML IVPB SCH (16:41)
[2016-09-16] MEDS: LORAZEPAM 2 MG INJ IV PRN (20:57)
[2016-09-16 21:49] LABS: HEPARIN INDUCED PLATELET AB NEGATIVE (NEGATIVE)
--- NOTE | 2016-09-16 22:05 | CONS ---
Date/Time of Note Date/Time of Note DATE: 09/16/16 TIME: 22:04 Assessment/Plan Assessment/Plan Chief Complaint/Hosp Course IMPRESSION: thrombocytopenia in pt with severe sepsis, exposed to multiple meds with pos thrombocytopenic effect, including VANCO, ZOSYN, HEPARIN,CEFAZOLIN NO EVIDENCE DIC s/p FFP yesterday and platelet transfusion today cont to monitor blood count closely transfuse if platelet count less [place] [id number], considering severe sepsis HIPA- NEG Leukocytosis. REACTIVE MONITOR Anemia. C/W ACD MONITOR BLOOD COUNT CLOSELY Severe Sepsis with septic shock 08/22 Ecoli UTI /Bacteremia Acute renal failure - 08/22 to ATN from sepsis Type II DM - Hyperglycemic on D5W Metabolic / Lactic acidosis 08/22 #1 Acute resp failure now ventilator dependent NSTEMI versus demand ischemia Positive troponin, assess significance, assess for true acute coronary syndrome. Metabolic acidosis respiratory failure, vent dependent incomplete database Thank you for allowing me to take part in the care of this patient. I will continue to follow along very closely with you. Further recommendations will be made as the patient progresses through her inpatient hospital clinical course. Problems: Consultation Date/Type/Reason Admit Date/Time Sep 09, 2016 at 19:47 Initial Consult Date 09/13/16 Type of Consultation: HEMEON Referring Provider: EMILIANO HENDRICKS 24 HR Interval Summary Free Text/Dictation ALL NOTED NO BLEEDING COUNT REVIEWED Exam/Review of Systems Vital Signs Vitals Vital Signs Date Time Temp Pulse Resp B/P Pulse Ox O2 Delivery O2 Flow Rate FiO2 09/16/16 21:15 91 28 100 30 09/16/16 17:00 136/56 Mechanical Ventilator 09/16/16 16:00 98.1 Intake and Output 09/15/16 09/15/16 09/16/16 15:00 23:00 07:00 Intake Total 625 ml 740 ml 660 ml Output Total 660 ml 800 ml 750 ml Balance -35 ml -60 ml -90 ml Exam Constitutional: frail, No alert, No oriented, intubated Head: normocephalic Eyes: PERRL, icteric ENMT: intubated Respiratory: clear to auscultation, diminished breath sounds Cardiovascular: regular rate and rhythm, No murmurs/extra sounds Gastrointestinal: bowel sounds, distended, other (large periumbilical hernia), soft Genitourinary - Female: other (montoya draining clear urine) Extremities: No edema Neurological: No nl mental status Results Result Diagram: 09/16/16 0430 09/16/16 0430 Results 24 hrs Laboratory Tests Test 09/16/16 01:18 09/16/16 04:30 09/16/16 05:35 09/16/16 07:50 Bedside Glucose 134 140 176 Activated Partial Thromboplast Time 32.9 Anion Gap 17 H Basophils # 0.0 Basophils % 0.2 Blood Urea Nitrogen 53 H Calcium Level 8.0 L Carbon Dioxide Level 29 Chloride Level 97 Creatinine 3.37 H Eosinophils # 0.1 Eosinophils % 0.5 Glucose Level 119 Hematocrit 26.5 L Hemoglobin 8.9 L INR International Normalized Ratio 1.33 Lymphocytes # 1.1 Lymphocytes % 7.6 L Mean Corpuscular Hemoglobin 28.3 L Mean Corpuscular Hemoglobin Concent 33.6 Mean Corpuscular Volume 84.4 Mean Platelet Volume Monocytes # 1.0 H Monocytes % 7.5 Neutrophils # 11.6 H Neutrophils % 83.4 H Nucleated Red Blood Cells # 0.0 Nucleated Red Blood Cells % 0.0 Platelet Count 38 #L Potassium Level 3.4 L Prothrombin Time 16.6 H Prothrombin Time Ratio 1.3 Red Blood Count 3.14 L Red Cell Distribution Width 14.6 H Sodium Level 140 White Blood Count 13.9 H Test 09/16/16 12:01 09/16/16 16:40 Bedside Glucose 160 129 Medications Medications Current Medications Ondansetron HCl (Zofran Inj) 4 mg Q6H PRN IV NAUSEA AND/OR VOMITING Last administered on 09/10/16 23:03; Admin Dose 4 MG; Start 09/09/16 at 20:00 Nitroglycerin (Nitroglycerin (Sl Tab) 0.4 Mg) 1 tab Q5M PRN SL CHEST PAIN; Start 09/09/16 at 20:00 Acetaminophen (Tylenol Liquid) 650 mg Q6H PRN PO PAIN LEVEL 1-3 OR FEVER; Start 09/09/16 at 20:00 Morphine Sulfate (morphine) 2 mg Q4H PRN IV PAIN LEVEL 7-10 Last administered on 09/10/16 23:03; Admin Dose 2 MG; Start 09/09/16 at 20:00 Lorazepam (Ativan) 1 mg Q2H PRN IV ANXIETY Last administered on 09/16/16 20:57 ; Admin Dose 1 MG; Start 09/09/16 at 20:00 Glucose (Glutose) 15 gm Q15M PRN PO DECREASED GLUCOSE; Start 09/09/16 at 20:30 Glucose (Glutose) 22.5 gm Q15M PRN PO DECREASED GLUCOSE; Start 09/09/16 at 20: 30 Dextrose (D50w Syringe) 25 ml Q15M PRN IV DECREASED GLUCOSE; Start 09/09/16 at 20:30 Dextrose (D50w Syringe) 50 ml Q15M PRN IV DECREASED GLUCOSE; Start 09/09/16 at 20:30 Glucagon (Glucagen) 1 mg Q15M PRN IM DECREASED GLUCOSE; Start 09/09/16 at 20:30 Glucose (Glutose) 15 gm Q15M PRN BUCCAL DECREASED GLUCOSE; Start 09/09/16 at 20 :30 Famotidine (Pepcid Iv) 20 mg DAILY IV Last administered on 09/16/16 08:51; Admin Dose 20 MG; Start 09/10/16 at 09:00 Docusate Sodium 100 mg 100 mg Q12H PO Last administered on 09/16/16 20:45; Admin Dose 100 MG; Start 09/10/16 at 20:00 Phenylephrine HCl 160 mg/Dextrose 500 ml @ 0 mls/hr TITRATE IV Last administered on 09/11/16 11:02; Admin Dose 28.12 MLS/HR; Start 09/10/16 at 19: 30 Norepinephrine/ Dextrose (Levophed/D5W) 250 ml @ 0.46 mls/hr TITRATE IV Last administered on 09/12/16 10:16; Admin Dose 14.05 MLS/HR; Start 09/10/16 at 22: 00 Aspirin 81 mg 81 mg DAILY PO Last administered on 09/16/16 08:51; Admin Dose 81 MG; Start 09/12/16 at 09:00 Ceftriaxone Sodium (Rocephin) 50 ml @ 100 mls/hr Q24H IVPB Last administered on 09/16/16 16:41; Admin Dose 100 MLS/HR; Start 09/12/16 at 16:00 Insulin Aspart NOVOLOG *MODERATE* ALGORI... Q4 SC Last administered on 20:50; Admin Dose 4 UNIT; Start 09/13/16 at 13:00 Ferric Sodium Gluconate Complex 125 mg/Sodium Chloride 110 ml @ 110 mls/hr Q24H IVPB Last administered on 09/16/16 10:56; Admin Dose 110 MLS/HR; Start at 10:00; Stop 09/19/16 at 10:59 Doxycycline Hyclate/Sodium Chloride (Vibramycin/NS) 250 ml @ 250 mls/hr Q12 IVPB Last administered on 09/16/16 20:47; Admin Dose 250 MLS/HR; Start at 15:00 JEFF FRANK MD Sep 16, 2016 22:05
[2016-09-17] VITALS (34 sets, daily range): BP systolic 140–200; BP diastolic 50–84; PULSE 86–110; RESP 19–35
[2016-09-17] MEDS: INSULIN ASPART [NOVOLOG] 3 ML PEN SC SCH ×6 (01:44→20:57)
[2016-09-17 04:43] LABS: ADD SCAN DIFF NO
[2016-09-17 04:53] LABS: ABNORMAL IP MESSAGE 1; BASOPHILS % 0.1 % (0.0-2.0); EOSINOPHILS # 0.1 10^3/ul (0.0-0.5); EOSINOPHILS % 0.6 % (0.0-7.0); HEMATOCRIT 26.3 % (37.0-47.0); HEMOGLOBIN 8.8 g/dl (12.0-16.0); LYMPHOCYTES % 7.9 % (15.0-51.0); MEAN CORPUSCULAR HEMOGLOBIN 28.8 pg (29.0-33.0); MEAN CORPUSCULAR HGB CONC 33.5 g/dl (32.0-37.0); MEAN CORPUSCULAR VOLUME 85.9 fl (82.0-101.0); MEAN PLATELET VOLUME 12.8 fl (7.4-10.4); MONOCYTE # 1.1 10^3/ul (0.3-0.9); MONOCYTES % 8.5 % (0.0-11.0); NEUTROPHIL # 10.8 10^3/ul (1.6-7.5); NEUTROPHILS % 82.2 % (39.0-77.0); PLATELET COUNT 70 10^3/UL (140-415); RED BLOOD COUNT 3.06 10^6/ul (4.20-5.40); WHITE BLOOD COUNT 13.2 10^3/ul (4.8-10.8)
[2016-09-17 04:59] LABS: INR 1.28; PROTIME 16.1 Sec (12.2-14.2); PT RATIO 1.3
[2016-09-17 05:00] LABS: PARTIAL THROMBOPLASTIN TIME 32.7 Sec (25.0-35.0)
[2016-09-17 05:46] LABS: POTASSIUM 3.4 mmol/L (3.5-5.1)
[2016-09-17 05:49] LABS: CREATININE 2.7 mg/dl (0.44-1.00)
[2016-09-17] MEDS: hydrALAzine 20 MG INJ IV PRN ×2 (06:45→21:15)
[2016-09-17] MEDS: morphine 2 MG INJ IV PRN ×2 (06:57→21:45)
[2016-09-17 07:58] LABS: PLATELET ESTIMATE PLT APPEAR DECREASED
[2016-09-17] MEDS: ASPIRIN 81 MG TAB PO SCH (08:32)
[2016-09-17] MEDS: FAMOTIDINE 20 MG INJ IV SCH (08:40)
[2016-09-17] MEDS: DOXYCYCLINE 100 MG in SOD CHLORIDE 0.9% 250 ML IVPB SCH ×2 (08:43→20:55)
[2016-09-17] MEDS: DOCUSATE SODIUM 10 MG/ML (10ML CUP) PO SCH ×2 (09:20→20:54)
--- NOTE | 2016-09-17 10:11 | CONS ---
Date/Time of Note Date/Time of Note DATE: 09/17/16 TIME: 10:07 Assessment/Plan Assessment/Plan Additional Assessment/Plan Ventilator settings; SIMV of 12, tidal volume 450, pressure support 10, PEEP of 5, 30% FiO2. Assessment and recommendations; 1. Patient admitted with severe gram-negative sepsis from E. coli leading to respiratory failure with severe metabolic acidosis with marked interval improvement. 2. Acute renal failure with continued improvement in renal function as well. 3. Thrombocytopenia with interval improvement as well. 4. Poor mental status with continually improving mental status. Continue current treatment. Patient has been switched over to CPAP mode with pressure support of 15. Will wean from ventilator as tolerated. I did have a detailed discussion the patient's daughter at bedside and answered all her questions. Consultation Date/Type/Reason Admit Date/Time Sep 09, 2016 at 19:47 Initial Consult Date 09/11/16 Type of Consultation: Pulmonary/critical care Referring Provider: EMILIANO HENDRICKS 24 HR Interval Summary Free Text/Dictation Patient condition is continually improving. There is continued improvement in mental status to the point with the patient is now following simple commands. She has remained hemodynamically stable. General examination; elderly lady, or intubated, awake. Currently in no distress. Exam/Review of Systems Vital Signs Vitals Vital Signs Date Time Temp Pulse Resp B/P Pulse Ox O2 Delivery O2 Flow Rate FiO2 09/17/16 08:00 97 09/17/16 07:00 32 175/64 98 Mechanical Ventilator 09/17/16 05:20 30 09/17/16 04:00 98.4 Intake and Output 09/16/16 09/16/16 09/17/16 15:00 23:00 07:00 Intake Total 580 ml 490 ml 480 ml Output Total 800 ml 450 ml 600 ml Balance -220 ml 40 ml -120 ml Exam HEENT examination; supple neck, no JVD. No lymphadenopathy. Midline trachea. Orally intubated. No neck masses. No thyromegaly. Pupils are small bilaterally. Chest examination; clear to auscultation bilaterally. S1-S2 audible, no murmurs. Regular rhythm. Abdomen examination; soft, nondistended, nontender. No organomegaly. Bowel sounds audible. Extremity examination; no peripheral edema. ROLL EXAMINER examination;. Patient follows simple commands moves all 4 extremities. Results Result Diagram: 09/17/160 09/17/16399 Results 24 hrs Laboratory Tests Test 09/16/16 12:01 09/16/16 16:40 09/16/16 20:47 09/17/16 01:42 Bedside Glucose 160 129 183 182 Test 09/17/16 04:00 09/17/16 04:57 09/17/16 08:30 09/17/16 08:33 Activated Partial Thromboplast Time 32.7 Anion Gap 14 Basophils # 0.0 Basophils % 0.1 Blood Urea Nitrogen 52 H Calcium Level 8.0 L Carbon Dioxide Level 31 Chloride Level 101 Creatinine 2.70 H Differential Comment AUTO w/SCAN Eosinophils # 0.1 Eosinophils % 0.6 Glucose Level 141 Hematocrit 26.3 L Hemoglobin 8.8 L INR International Normalized Ratio 1.28 Lymphocytes # 1.0 Lymphocytes % 7.9 L Mean Corpuscular Hemoglobin 28.8 L Mean Corpuscular Hemoglobin Concent 33.5 Mean Corpuscular Volume 85.9 Mean Platelet Volume 12.8 H Monocytes # 1.1 H Monocytes % 8.5 Neutrophils # 10.8 H Neutrophils % 82.2 H Nucleated Red Blood Cells # 0.0 Nucleated Red Blood Cells % 0.0 Platelet Count 70 #L Platelet Estimate PLT APPEAR DECREASED Potassium Level 3.4 L Prothrombin Time 16.1 H Prothrombin Time Ratio 1.3 Red Blood Count 3.06 L Red Cell Distribution Width 15.0 H Sodium Level 143 White Blood Count 13.2 H Bedside Glucose 149 125 Lab Scanned Report REFERENCE LAB Medications Medications Current Medications Ondansetron HCl (Zofran Inj) 4 mg Q6H PRN IV NAUSEA AND/OR VOMITING Last administered on 09/10/16 23:03; Admin Dose 4 MG; Start 09/09/16 at 20:00 Nitroglycerin (Nitroglycerin (Sl Tab) 0.4 Mg) 1 tab Q5M PRN SL CHEST PAIN; Start 09/09/16 at 20:00 Acetaminophen (Tylenol Liquid) 650 mg Q6H PRN PO PAIN LEVEL 1-3 OR FEVER; Start 09/09/16 at 20:00 Morphine Sulfate (morphine) 2 mg Q4H PRN IV PAIN LEVEL 7-10 Last administered on 09/17/16 06:57; Admin Dose 2 MG; Start 09/09/16 at 20:00 Lorazepam (Ativan) 1 mg Q2H PRN IV ANXIETY Last administered on 09/16/16 20:57 ; Admin Dose 1 MG; Start 09/09/16 at 20:00 Glucose (Glutose) 15 gm Q15M PRN PO DECREASED GLUCOSE; Start 09/09/16 at 20:30 Glucose (Glutose) 22.5 gm Q15M PRN PO DECREASED GLUCOSE; Start 09/09/16 at 20: 30 Dextrose (D50w Syringe) 25 ml Q15M PRN IV DECREASED GLUCOSE; Start 09/09/16 at 20:30 Dextrose (D50w Syringe) 50 ml Q15M PRN IV DECREASED GLUCOSE; Start 09/09/16 at 20:30 Glucagon (Glucagen) 1 mg Q15M PRN IM DECREASED GLUCOSE; Start 09/09/16 at 20:30 Glucose (Glutose) 15 gm Q15M PRN BUCCAL DECREASED GLUCOSE; Start 09/09/16 at 20 :30 Famotidine 20 mg 20 mg DAILY IV Last administered on 09/17/16 08:40; Admin Dose 20 MG; Start 09/10/16 at 09:00 Phenylephrine HCl 160 mg/Dextrose 500 ml @ 0 mls/hr TITRATE IV Last administered on 09/11/16 11:02; Admin Dose 28.12 MLS/HR; Start 09/10/16 at 19: 30 Norepinephrine/ Dextrose (Levophed/D5W) 250 ml @ 0.46 mls/hr TITRATE IV Last administered on 09/12/16 10:16; Admin Dose 14.05 MLS/HR; Start 09/10/16 at 22: 00 Aspirin 81 mg 81 mg DAILY PO Last administered on 09/17/16 08:32; Admin Dose 81 MG; Start 09/12/16 at 09:00 Ceftriaxone Sodium (Rocephin) 50 ml @ 100 mls/hr Q24H IVPB Last administered on 09/16/16 16:41; Admin Dose 100 MLS/HR; Start 09/12/16 at 16:00 Insulin Aspart NOVOLOG *MODERATE* ALGORI... Q4 SC Last administered on 05:01; Admin Dose 2 UNIT; Start 09/13/16 at 13:00 Ferric Sodium Gluconate Complex 125 mg/Sodium Chloride 110 ml @ 110 mls/hr Q24H IVPB Last administered on 09/16/16 10:56; Admin Dose 110 MLS/HR; Start at 10:00; Stop 09/19/16 at 10:59 Doxycycline Hyclate/Sodium Chloride (Vibramycin/NS) 250 ml @ 250 mls/hr Q12 IVPB Last administered on 09/17/16 08:43; Admin Dose 250 MLS/HR; Start at 15:00 Hydralazine HCl (Apresoline) 10 mg Q4H PRN IV SBP >160 Last administered on 06:45; Admin Dose 10 MG; Start 09/17/16 at 07:00 Docusate Sodium (Colace Liquid Cup) 100 mg Q12 PO Last administered on 09:20; Admin Dose 100 MG; Start 09/17/16 at 09:00 DEANNA MONSALVE Sep 17, 2016 10:11
[2016-09-17] MEDS ORDERED: POTASSIUM CHLORIDE 250 ML IVPB ONE (10:30)
[2016-09-17] MEDS: SOD FERRIC GLUC COMPLX 125 MG in SOD CHLORIDE 0.9% 100 ML IVPB SCH (10:49)
--- NOTE | 2016-09-17 12:00 | PN ---
DATE: 09/17/2016 SUBJECTIVE: No acute changes. The patient is on SIMV mode. Opens eyes to voice, looks comfortable, no fevers. VITAL SIGNS: Temperature 98.6, pulse 94, respirations 20, blood pressure 160/60, saturation 97% on vent. WBC 13.2, H and H 8.8 and 26.3, platelets 70, neutrophils 82.2, no bands. BUN 52, creatinin e 2.70. ANTIMICROBIALS: The patient is on: 1. Rocephin. 2. Doxycycline. INDWELLINGS: Endotracheal tube, NG tube, Alaniz catheter, right IJ triple-lumen catheter. PHYSICAL EXAMINATION: GENERAL: Fragile, elderly woman who is lying comfortably in bed. HEENT: Head atraumatic, normocephalic. Sclerae anicteric. Buccal mucosa dry. NECK: Supple, trachea midline. CHEST: Rise symmetrical. Breath sounds diminished to bases. HEART: S1, S2. ABDOMEN: Soft, bowel tones present. EXTREMITIES: Without cyanosis. Right upper extremity erythema. ASSESSMENT: 1. Resolving sepsis status post shock. 2. Escherichia coli urinary tract infection with bacteremia. 3. Right upper extremity cellulitis. 4. Acute respiratory failure. 5. Acute encephalopathy. 6. Acute renal failure. 7. Severe thrombocytopenia, coagulopathy and anemia, likely secondary to disseminated intravascular coagulopathy. PLAN: The patient remains stable, slowly improving, tolerates weaning. Continue present care, anti biotics and follow recommendations of consultants. Dictated By: CHLOE MONROY DECALER for DELANO RODRIGUEZ/ARLENE Conf#: [id number] DID#: [id number]
--- NOTE | 2016-09-17 12:04 | PN ---
Date/Time of Note Date/Time of Note DATE: 09/17/16 TIME: 12:01 Assessment/Plan VTE Prophylaxis VTE Prophylaxis Intervention: contraindicated, SCD's VTE Contraindication Reason: thrombocytopenia Lines/Catheters IV Catheter Type (from Nrs): Central Line Central line still needed: Yes Urinary Cath still in place: Yes Reason Cath still needed: urinary retention Assessment/Plan Chief Complaint/Hosp Course Assessment/Plan: 75 yo female with a past medical history of type II DM, chronic pain who complains of weakness and decreased urinary output for the last several days, found with septic shock. 1. Severe Sepsis with septic shock - 2/2 Ecoli UTI /Bacteremia - pressors off, and on abx. - Continue broad spectrum abx / Appreciate ID consult - Continue ICU care 2. Acute renal failure r/o CKD- 2/2 to ATN from sepsis 3. Type II DM - controlled on SSI - SSI only for now 4. Metabolic / Lactic acidosis 2/2 #1: resolved 5. Acute resp failure now ventilator dependent - on SIMV presently - Continue Vent mgt/appreciate pulm input - wean off as tolerated 6. NSTEMI versus - Daily aspirin / no BB or Acei for now 2/2 hypotension /Appreciate Cardiology consultdemand ischemia 7. new onset thrombocytopenia: slightly improved today - per heme Onc does not appear to be DIC. possibly is sec to sepsis and per per Heme/Onc, pt was also exposed to multiple meds with pos thrombocytopenic effect, including VANCO, ZOSYN, HEPARIN,CEFAZOLIN. HIT antibody negative/ s/p FFP and platelet transfusion. - monitor for now, transfuse if plts < 20,000 per heme/Onc rec's. 8. Severe Iron deficiency: pt also now with + occult test stool. No signs of GI bleeding presently. - IV iron infusion - awaiting consult GI as well. PROPHYLAXIS: Pepcid / SCDS CRITICAL CARE TIME: 40 mins Problems: Subjective 24 Hr Interval Summary Free Text/Dictation Pt presently undergoing CPAP trial. No acute events overnight. Exam/Review of Systems Vital Signs Vitals Vital Signs Date Time Temp Pulse Resp B/P Pulse Ox O2 Delivery O2 Flow Rate FiO2 09/17/16 10:00 94 20 160/60 97 Mechanical Ventilator 09/17/16 07:00 98.6 09/17/16 05:20 30 Intake and Output 2/09/16/16 09/17/16 15:00 23:00 07:00 Intake Total 580 ml 490 ml 480 ml Output Total 800 ml 450 ml 600 ml Balance -220 ml 40 ml -120 ml Exam Constitutional: frail, No alert, No oriented, intubated Head: normocephalic Eyes: PERRL, icteric ENMT: intubated Respiratory: clear to auscultation, diminished breath sounds Cardiovascular: regular rate and rhythm, No murmurs/extra sounds Gastrointestinal: bowel sounds, distended, other (large periumbilical hernia), soft Genitourinary - Female: other (montoya draining clear urine) Extremities: No edema Neurological: No nl mental status Results Result Diagram: 09/17/16 0400 09/17/16 0400 Results 24 hrs Laboratory Tests Test 09/16/16 16:40 09/16/16 20:47 09/17/16 01:42 09/17/16 04:00 Bedside Glucose 129 183 182 Activated Partial Thromboplast Time 32.7 Anion Gap 14 Basophils # 0.0 Basophils % 0.1 Blood Urea Nitrogen 52 H Calcium Level 8.0 L Carbon Dioxide Level 31 Chloride Level 101 Creatinine 2.70 H Differential Comment AUTO w/SCAN Eosinophils # 0.1 Eosinophils % 0.6 Glucose Level 141 Hematocrit 26.3 L Hemoglobin 8.8 L INR International Normalized Ratio 1.28 Lymphocytes # 1.0 Lymphocytes % 7.9 L Mean Corpuscular Hemoglobin 28.8 L Mean Corpuscular Hemoglobin Concent 33.5 Mean Corpuscular Volume 85.9 Mean Platelet Volume 12.8 H Monocytes # 1.1 H Monocytes % 8.5 Neutrophils # 10.8 H Neutrophils % 82.2 H Nucleated Red Blood Cells # 0.0 Nucleated Red Blood Cells % 0.0 Platelet Count 70 #L Platelet Estimate PLT APPEAR DECREASED Potassium Level 3.4 L Prothrombin Time 16.1 H Prothrombin Time Ratio 1.3 Red Blood Count 3.06 L Red Cell Distribution Width 15.0 H Sodium Level 143 White Blood Count 13.2 H Test 09/17/16 04:57 09/17/16 08:30 09/17/16 08:33 Bedside Glucose 149 125 Lab Scanned Report REFERENCE LAB Medications Medications Current Medications Ondansetron HCl (Zofran Inj) 4 mg Q6H PRN IV NAUSEA AND/OR VOMITING Last administered on 09/10/16 23:03; Admin Dose 4 MG; Start 09/09/16 at 20:00 Nitroglycerin (Nitroglycerin (Sl Tab) 0.4 Mg) 1 tab Q5M PRN SL CHEST PAIN; Start 09/09/16 at 20:00 Acetaminophen (Tylenol Liquid) 650 mg Q6H PRN PO PAIN LEVEL 1-3 OR FEVER; Start 09/09/16 at 20:00 Morphine Sulfate (morphine) 2 mg Q4H PRN IV PAIN LEVEL 7-10 Last administered on 09/17/16 06:57; Admin Dose 2 MG; Start 09/09/16 at 20:00 Lorazepam (Ativan) 1 mg Q2H PRN IV ANXIETY Last administered on 09/16/16 20:57 ; Admin Dose 1 MG; Start 09/09/16 at 20:00 Glucose (Glutose) 15 gm Q15M PRN PO DECREASED GLUCOSE; Start 09/09/16 at 20:30 Glucose (Glutose) 22.5 gm Q15M PRN PO DECREASED GLUCOSE; Start 09/09/16 at 20: 30 Dextrose (D50w Syringe) 25 ml Q15M PRN IV DECREASED GLUCOSE; Start 09/09/16 at 20:30 Dextrose (D50w Syringe) 50 ml Q15M PRN IV DECREASED GLUCOSE; Start 09/09/16 at 20:30 Glucagon (Glucagen) 1 mg Q15M PRN IM DECREASED GLUCOSE; Start 09/09/16 at 20:30 Glucose (Glutose) 15 gm Q15M PRN BUCCAL DECREASED GLUCOSE; Start 09/09/16 at 20 :30 Famotidine 20 mg 20 mg DAILY IV Last administered on 09/17/16 08:40; Admin Dose 20 MG; Start 09/10/16 at 09:00 Phenylephrine HCl 160 mg/Dextrose 500 ml @ 0 mls/hr TITRATE IV Last administered on 09/11/16 11:02; Admin Dose 28.12 MLS/HR; Start 09/10/16 at 19: 30 Norepinephrine/ Dextrose (Levophed/D5W) 250 ml @ 0.46 mls/hr TITRATE IV Last administered on 09/12/16 10:16; Admin Dose 14.05 MLS/HR; Start 09/10/16 at 22: 00 Aspirin 81 mg 81 mg DAILY PO Last administered on 09/17/16 08:32; Admin Dose 81 MG; Start 09/12/16 at 09:00 Ceftriaxone Sodium (Rocephin) 50 ml @ 100 mls/hr Q24H IVPB Last administered on 09/16/16 16:41; Admin Dose 100 MLS/HR; Start 09/12/16 at 16:00 Insulin Aspart NOVOLOG *MODERATE* ALGORI... Q4 SC Last administered on 05:01; Admin Dose 2 UNIT; Start 09/13/16 at 13:00 Ferric Sodium Gluconate Complex 125 mg/Sodium Chloride 110 ml @ 110 mls/hr Q24H IVPB Last administered on 09/17/16 10:49; Admin Dose 110 MLS/HR; Start at 10:00; Stop 09/19/16 at 10:59 Doxycycline Hyclate/Sodium Chloride (Vibramycin/NS) 250 ml @ 250 mls/hr Q12 IVPB Last administered on 09/17/16 08:43; Admin Dose 250 MLS/HR; Start at 15:00 Hydralazine HCl (Apresoline) 10 mg Q4H PRN IV SBP >160 Last administered on 06:45; Admin Dose 10 MG; Start 09/17/16 at 07:00 Docusate Sodium 100 mg 100 mg Q12 PO Last administered on 09/17/16 09:20; Admin Dose 100 MG; Start 09/17/16 at 09:00 Potassium Chloride (KCl 40 MEQ/250 ML NS) 250 ml @ 62.5 mls/hr ONCE ONCE IVPB ; Start 09/17/16 at 10:30; Stop 09/17/16 at 14:29 MARIO ALBERTO CLAUDIO Sep 17, 2016 12:04
--- NOTE | 2016-09-17 12:40 | CONS ---
Date/Time of Note Date/Time of Note DATE: 09/17/16 TIME: 12:38 Assessment/Plan Assessment/Plan Additional Assessment/Plan 1. Positive troponin, assess significance, assess for true acute coronary syndrome.-mild uptrend in setting of renal failure - no intervention planned now , will monitor - CONSERVATIVE RX for now. No intervention planned. WILL FOLLOW CLINICALLY. 2. Hypotension, shock state. Rule out cardiac etiology-EF 45-50 by echo this admit - better now, con't supportive care - STABLE - now with increased edema - will hold IVF now. BETTER NOW. 3. Abnormal electrocardiogram, assess for acute coronary syndrome- no cp now, will monitor - SINUS NOW - 80s 4. Respiratory failure- acute, con't resp rx, intubated - stable - now on WEANING TRIAL. 5. Leukocytosis- on anti-bx 6. Anemia- H/H stable - no significant active bleed noted - no change 7. Thrombocytopenia. 8. Renal failure- acute on chronic, renal team follows 9. Bacteremia with gram negative rods- on anti-Bx Consultation Date/Type/Reason Admit Date/Time Sep 09, 2016 at 19:47 Initial Consult Date 09/11/16 Type of Consultation: Pulmonary/critical care Referring Provider: EMILIANO HENDRICKS 24 HR Interval Summary Free Text/Dictation NO acute change - con't to wean off vent. NO CP noted. ROS: No fever, no chills, no nausea, no vomiting, no diarrhea/constipation No recent weight changes No chest pain, no PND, no orthopnea No dizziness, blurred vision No thirst, no heat or cold intolerance (per nurse) Exam/Review of Systems Vital Signs Vitals Vital Signs Date Time Temp Pulse Resp B/P Pulse Ox O2 Delivery O2 Flow Rate FiO2 09/17/16 12:00 91 09/17/16 10:00 20 160/60 97 Mechanical Ventilator 09/17/16 07:00 98.6 09/17/16 05:20 30 Intake and Output 09/16/16 09/16/16 09/17/16 15:00 23:00 07:00 Intake Total 580 ml 490 ml 480 ml Output Total 800 ml 450 ml 600 ml Balance -220 ml 40 ml -120 ml Exam General: WN/WD/NAD, AOx 0, seadted HEENT: Unicetric/atraumatic/EOMI (does not follow commands) NECK: JVD elevated, no thyromegaly, intub Lymph: no lymphadenopathy HEART: regular with no S3, II/ systolic murmur at apex LUNGS: Coarse sounds ABD: soft, NT, ND, +BS : Intact Neuro: non focal SKIN: chronic changes EXT: trace edema Results Result Diagram: 09/17/16 0400 09/17/16 0400 Results 24 hrs Laboratory Tests Test 09/16/16 16:40 09/16/16 20:47 09/17/16 01:42 09/17/16 04:00 Bedside Glucose 129 183 182 Activated Partial Thromboplast Time 32.7 Anion Gap 14 Basophils # 0.0 Basophils % 0.1 Blood Urea Nitrogen 52 H Calcium Level 8.0 L Carbon Dioxide Level 31 Chloride Level 101 Creatinine 2.70 H Differential Comment AUTO w/SCAN Eosinophils # 0.1 Eosinophils % 0.6 Glucose Level 141 Hematocrit 26.3 L Hemoglobin 8.8 L INR International Normalized Ratio 1.28 Lymphocytes # 1.0 Lymphocytes % 7.9 L Mean Corpuscular Hemoglobin 28.8 L Mean Corpuscular Hemoglobin Concent 33.5 Mean Corpuscular Volume 85.9 Mean Platelet Volume 12.8 H Monocytes # 1.1 H Monocytes % 8.5 Neutrophils # 10.8 H Neutrophils % 82.2 H Nucleated Red Blood Cells # 0.0 Nucleated Red Blood Cells % 0.0 Platelet Count 70 #L Platelet Estimate PLT APPEAR DECREASED Potassium Level 3.4 L Prothrombin Time 16.1 H Prothrombin Time Ratio 1.3 Red Blood Count 3.06 L Red Cell Distribution Width 15.0 H Sodium Level 143 White Blood Count 13.2 H Test 09/17/16 04:57 09/17/16 08:30 09/17/16 08:33 Bedside Glucose 149 125 Lab Scanned Report REFERENCE LAB Medications Medications Current Medications Ondansetron HCl (Zofran Inj) 4 mg Q6H PRN IV NAUSEA AND/OR VOMITING Last administered on 09/10/16t 23:03; Admin Dose 4 MG; Start 09/09/16 at 20:00 Nitroglycerin (Nitroglycerin (Sl Tab) 0.4 Mg) 1 tab Q5M PRN SL CHEST PAIN; Start 09/09/16 at 20:00 Acetaminophen (Tylenol Liquid) 650 mg Q6H PRN PO PAIN LEVEL 1-3 OR FEVER; Start 09/09/16 at 20:00 Morphine Sulfate (morphine) 2 mg Q4H PRN IV PAIN LEVEL 7-10 Last administered on 09/17/16 06:57; Admin Dose 2 MG; Start 09/09/16 at 20:00 Lorazepam (Ativan) 1 mg Q2H PRN IV ANXIETY Last administered on 09/16/16 20:57 ; Admin Dose 1 MG; Start 09/09/16 at 20:00 Glucose (Glutose) 15 gm Q15M PRN PO DECREASED GLUCOSE; Start 09/09/16 at 20:30 Glucose (Glutose) 22.5 gm Q15M PRN PO DECREASED GLUCOSE; Start 09/09/16 at 20: 30 Dextrose (D50w Syringe) 25 ml Q15M PRN IV DECREASED GLUCOSE; Start 09/09/16 at 20:30 Dextrose (D50w Syringe) 50 ml Q15M PRN IV DECREASED GLUCOSE; Start 09/09/16 at 20:30 Glucagon (Glucagen) 1 mg Q15M PRN IM DECREASED GLUCOSE; Start 09/09/16 at 20:30 Glucose (Glutose) 15 gm Q15M PRN BUCCAL DECREASED GLUCOSE; Start 09/09/16 at 20 :30 Famotidine 20 mg 20 mg DAILY IV Last administered on 09/17/16 08:40; Admin Dose 20 MG; Start 09/10/16 at 09:00 Phenylephrine HCl 160 mg/Dextrose 500 ml @ 0 mls/hr TITRATE IV Last administered on 09/11/16 11:02; Admin Dose 28.12 MLS/HR; Start 09/10/16 at 19: 30 Norepinephrine/ Dextrose (Levophed/D5W) 250 ml @ 0.46 mls/hr TITRATE IV Last administered on 09/12/16 10:16; Admin Dose 14.05 MLS/HR; Start 09/10/16 at 22: 00 Aspirin 81 mg 81 mg DAILY PO Last administered on 09/17/16 08:32; Admin Dose 81 MG; Start 09/12/16 at 09:00 Ceftriaxone Sodium (Rocephin) 50 ml @ 100 mls/hr Q24H IVPB Last administered on 09/16/16 16:41; Admin Dose 100 MLS/HR; Start 09/12/16 at 16:00 Insulin Aspart NOVOLOG *MODERATE* ALGORI... Q4 SC Last administered on 05:01; Admin Dose 2 UNIT; Start 09/13/16 at 13:00 Ferric Sodium Gluconate Complex 125 mg/Sodium Chloride 110 ml @ 110 mls/hr Q24H IVPB Last administered on 09/17/16 10:49; Admin Dose 110 MLS/HR; Start at 10:00; Stop 09/19/16 at 10:59 Doxycycline Hyclate/Sodium Chloride (Vibramycin/NS) 250 ml @ 250 mls/hr Q12 IVPB Last administered on 09/17/16 08:43; Admin Dose 250 MLS/HR; Start at 15:00 Hydralazine HCl (Apresoline) 10 mg Q4H PRN IV SBP >160 Last administered on 06:45; Admin Dose 10 MG; Start 09/17/16 at 07:00 Docusate Sodium 100 mg 100 mg Q12 PO Last administered on 09/17/16 09:20; Admin Dose 100 MG; Start 09/17/16 at 09:00 Potassium Chloride (KCl 40 MEQ/250 ML NS) 250 ml @ 62.5 mls/hr ONCE ONCE IVPB ; Start 09/17/16 at 10:30; Stop 09/17/16 at 14:29 CHERI PATTEN MD Sep 17, 2016 12:40
[2016-09-17] MEDS ORDERED: POTASSIUM CHLORIDE 250 ML IVPB SCH (14:00)
--- NOTE | 2016-09-17 15:38 | CONS ---
Date/Time of Note Date/Time of Note DATE: 09/17/16 TIME: 15:34 Assessment/Plan Assessment/Plan Additional Assessment/Plan Anemia * Stool OB pos * Cardiac clearance prior to EGD * EGD if clinically indicated * PPI BID * Monitor Hgb Q8hrs, transfuse 2 units for hgb < 7.5 * Continue iron supplementation SHALOM * Nephrology following Elevated Troponin * Cardiology following Acute Respiratory Failure * On CPAP * Pulmonology following Further recommendations depend on clinical course Consultation Date/Type/Reason Admit Date/Time Sep 09, 2016 at 19:47 Type of Consultation: GI Reason for Consultation Anemia Hx of Present Illness 75 YO woman that presented to ED 08/22 to increasing back pain and weakness. Pt at bedside is intubated on CPAP and sedated. Per pt's daughters, she was experiencing abdominal pain with nausea, and non bloody bilious vomiting x 1 day. They denied she had melena stool, fever, chills, chest pain, and diarrhea. Family denies previous colonoscopy and EGD. Pt also noted to have severe iron deficiency anemia and is currently getting supplementation. Constitutional: no complaints Psychological: no complaints Past Medical History Medical History: diabetes Past Surgical History Past Surgical Hx: no surgical history Social History Alcohol Use: none Smoking Status: Former smoker Drug Use: none Exam/Review of Systems Vital Signs Vitals Vital Signs Date Time Temp Pulse Resp B/P Pulse Ox O2 Delivery O2 Flow Rate FiO2 09/17/16 14:00 86 22 148/55 100 Mechanical Ventilator 09/17/16 12:00 98.0 09/17/16 05:20 30 Intake and Output 09/16/16 09/16/16 09/17/16 15:00 23:00 07:00 Intake Total 580 ml 490 ml 480 ml Output Total 800 ml 450 ml 600 ml Balance -220 ml 40 ml -120 ml Exam Constitutional: non-verbal Eyes: nl conjunctiva Respiratory: other (intubated CPAP) Cardiovascular: regular rate and rhythm Gastrointestinal: non-tender, soft Musculoskeletal: nl extremities to inspection Extremities: edema Neurological: lethargic Results Result Diagram: 09/17/16 0400 09/17/16 0400 Results 24 hrs Laboratory Tests Test 09/16/16 16:40 09/16/16 20:47 09/17/16 01:42 09/17/16 04:00 Bedside Glucose 129 183 182 Activated Partial Thromboplast Time 32.7 Anion Gap 14 Basophils # 0.0 Basophils % 0.1 Blood Urea Nitrogen 52 H Calcium Level 8.0 L Carbon Dioxide Level 31 Chloride Level 101 Creatinine 2.70 H Differential Comment AUTO w/SCAN Eosinophils # 0.1 Eosinophils % 0.6 Glucose Level 141 Hematocrit 26.3 L Hemoglobin 8.8 L INR International Normalized Ratio 1.28 Lymphocytes # 1.0 Lymphocytes % 7.9 L Mean Corpuscular Hemoglobin 28.8 L Mean Corpuscular Hemoglobin Concent 33.5 Mean Corpuscular Volume 85.9 Mean Platelet Volume 12.8 H Monocytes # 1.1 H Monocytes % 8.5 Neutrophils # 10.8 H Neutrophils % 82.2 H Nucleated Red Blood Cells # 0.0 Nucleated Red Blood Cells % 0.0 Platelet Count 70 #L Platelet Estimate PLT APPEAR DECREASED Potassium Level 3.4 L Prothrombin Time 16.1 H Prothrombin Time Ratio 1.3 Red Blood Count 3.06 L Red Cell Distribution Width 15.0 H Sodium Level 143 White Blood Count 13.2 H Test 09/17/16 04:57 09/17/16 08:30 09/17/16 08:33 09/17/16 13:12 Bedside Glucose 149 125 132 Lab Scanned Report REFERENCE LAB Medications Medications Current Medications Ondansetron HCl (Zofran Inj) 4 mg Q6H PRN IV NAUSEA AND/OR VOMITING Last administered on 09/10/16 23:03; Admin Dose 4 MG; Start 09/09/16 at 20:00 Nitroglycerin (Nitroglycerin (Sl Tab) 0.4 Mg) 1 tab Q5M PRN SL CHEST PAIN; Start 09/09/16 at 20:00 Acetaminophen (Tylenol Liquid) 650 mg Q6H PRN PO PAIN LEVEL 1-3 OR FEVER; Start 09/09/16 at 20:00 Morphine Sulfate (morphine) 2 mg Q4H PRN IV PAIN LEVEL 7-10 Last administered on 09/17/16 06:57; Admin Dose 2 MG; Start 09/09/16 at 20:00 Lorazepam (Ativan) 1 mg Q2H PRN IV ANXIETY Last administered on 09/16/16 20:57 ; Admin Dose 1 MG; Start 09/09/16 at 20:00 Glucose (Glutose) 15 gm Q15M PRN PO DECREASED GLUCOSE; Start 09/09/16 at 20:30 Glucose (Glutose) 22.5 gm Q15M PRN PO DECREASED GLUCOSE; Start 09/09/16 at 20: 30 Dextrose (D50w Syringe) 25 ml Q15M PRN IV DECREASED GLUCOSE; Start 09/09/16 at 20:30 Dextrose (D50w Syringe) 50 ml Q15M PRN IV DECREASED GLUCOSE; Start 09/09/16 at 20:30 Glucagon (Glucagen) 1 mg Q15M PRN IM DECREASED GLUCOSE; Start 09/09/16 at 20:30 Glucose (Glutose) 15 gm Q15M PRN BUCCAL DECREASED GLUCOSE; Start 09/09/16 at 20 :30 Famotidine 20 mg 20 mg DAILY IV Last administered on 09/17/16 08:40; Admin Dose 20 MG; Start 09/10/16 at 09:00 Phenylephrine HCl 160 mg/Dextrose 500 ml @ 0 mls/hr TITRATE IV Last administered on 09/11/16 11:02; Admin Dose 28.12 MLS/HR; Start 09/10/16 at 19: 30 Norepinephrine/ Dextrose (Levophed/D5W) 250 ml @ 0.46 mls/hr TITRATE IV Last administered on 09/12/16 10:16; Admin Dose 14.05 MLS/HR; Start 09/10/16 at 22: 00 Aspirin 81 mg 81 mg DAILY PO Last administered on 09/17/16 08:32; Admin Dose 81 MG; Start 09/12/16 at 09:00 Ceftriaxone Sodium (Rocephin) 50 ml @ 100 mls/hr Q24H IVPB Last administered on 09/16/16 16:41; Admin Dose 100 MLS/HR; Start 09/12/16 at 16:00 Insulin Aspart NOVOLOG *MODERATE* ALGORI... Q4 SC Last administered on 05:01; Admin Dose 2 UNIT; Start 09/13/16 at 13:00 Ferric Sodium Gluconate Complex 125 mg/Sodium Chloride 110 ml @ 110 mls/hr Q24H IVPB Last administered on 09/17/16 10:49; Admin Dose 110 MLS/HR; Start at 10:00; Stop 09/19/16 at 10:59 Doxycycline Hyclate/Sodium Chloride (Vibramycin/NS) 250 ml @ 250 mls/hr Q12 IVPB Last administered on 09/17/16 08:43; Admin Dose 250 MLS/HR; Start at 15:00 Hydralazine HCl (Apresoline) 10 mg Q4H PRN IV SBP >160 Last administered on 06:45; Admin Dose 10 MG; Start 09/17/16 at 07:00 Docusate Sodium (Colace Liquid Cup) 100 mg Q12 PO Last administered on 09:20; Admin Dose 100 MG; Start 09/17/16 at 09:00 SALINA BIRCH MD Sep 17, 2016 15:38
[2016-09-17] MEDS: CEFTRIAXONE 1 GM/50 ML (PMX) 50 ML IVPB SCH (17:06)
--- NOTE | 2016-09-17 17:36 | RADRPT ---
Vent Rate: 92 bpm RR Interval: 0 msec HI Interval: 128 msec QRS Duration: 86 msec QT Interval: 390 msec QTC Interval: 482 msec P-R-T [place]: 62 - 61 - 57 degrees Normal sinus rhythm Normal ECG Electronically Signed By: Everardo Canales [id number]
--- NOTE | 2016-09-17 18:24 | CONS ---
Date/Time of Note Date/Time of Note DATE: 09/17/16 TIME: 18:24 Assessment/Plan Assessment/Plan Chief Complaint/Hosp Course IMPRESSION: thrombocytopenia in pt with severe sepsis, exposed to multiple meds with pos thrombocytopenic effect, including VANCO, ZOSYN, HEPARIN,CEFAZOLIN NO EVIDENCE DIC s/p FFP yesterday and platelet transfusion today cont to monitor blood count closely transfuse if platelet [place] less [place] [id number], considering severe sepsis HIPA- NEG Leukocytosis. REACTIVE MONITOR Anemia. C/W ACD MONITOR BLOOD COUNT CLOSELY Severe Sepsis with septic shock / Ecoli UTI /Bacteremia Acute renal failure - / to ATN from sepsis Type II DM - Hyperglycemic on D5W Metabolic / Lactic acidosis / #1 Acute resp failure now ventilator dependent NSTEMI versus demand ischemia Positive troponin, assess significance, assess for true acute coronary syndrome. Metabolic acidosis respiratory failure, vent dependent incomplete database Thank you for allowing me to take part in the care of this patient. I will continue to follow along very closely with you. Further recommendations will be made as the patient progresses through her inpatient hospital clinical course. Problems: Consultation Date/Type/Reason Admit Date/Time Sep 09, 2016 at 19:47 Initial Consult Date 09/13/16 Type of Consultation: HEMEON Referring Provider: EMILIANO HENDRICKS 24 HR Interval Summary Free Text/Dictation ALL NOTED ON VENT PLATELET COUNT IMPROVING NO BLEEDING Exam/Review of Systems Vital Signs Vitals Vital Signs Date Time Temp Pulse Resp B/P Pulse Ox O2 Delivery O2 Flow Rate FiO2 09/17/16 17:35 93 27 100 30 09/17/16 14:00 148/55 Mechanical Ventilator 09/17/16 12:00 98.0 Intake and Output 09/16/16 09/16/16 09/17/16 15:00 23:00 07:00 Intake Total 580 ml 490 ml 480 ml Output Total 800 ml 450 ml 600 ml Balance -220 ml 40 ml -120 ml Exam General: WN/WD/NAD, AOx 0, seadted HEENT: Unicetric/atraumatic/EOMI (does not follow commands) NECK: JVD elevated, no thyromegaly, intub Lymph: no lymphadenopathy HEART: regular with no S3, II/ systolic murmur at apex LUNGS: Coarse sounds ABD: soft, NT, ND, +BS : Intact Neuro: non focal SKIN: chronic changes EXT: trace edema Results Result Diagram: 09/17/16 0400 09/17/16 0400 Results 24 hrs Laboratory Tests Test 09/16/16 20:47 09/17/16 01:42 09/17/16 04:00 09/17/16 04:57 Bedside Glucose 183 182 149 Activated Partial Thromboplast Time 32.7 Anion Gap 14 Basophils # 0.0 Basophils % 0.1 Blood Urea Nitrogen 52 H Calcium Level 8.0 L Carbon Dioxide Level 31 Chloride Level 101 Creatinine 2.70 H Differential Comment AUTO w/SCAN Eosinophils # 0.1 Eosinophils % 0.6 Glucose Level 141 Hematocrit 26.3 L Hemoglobin 8.8 L INR International Normalized Ratio 1.28 Lymphocytes # 1.0 Lymphocytes % 7.9 L Mean Corpuscular Hemoglobin 28.8 L Mean Corpuscular Hemoglobin Concent 33.5 Mean Corpuscular Volume 85.9 Mean Platelet Volume 12.8 H Monocytes # 1.1 H Monocytes % 8.5 Neutrophils # 10.8 H Neutrophils % 82.2 H Nucleated Red Blood Cells # 0.0 Nucleated Red Blood Cells % 0.0 Platelet Count 70 #L Platelet Estimate PLT APPEAR DECREASED Potassium Level 3.4 L Prothrombin Time 16.1 H Prothrombin Time Ratio 1.3 Red Blood Count 3.06 L Red Cell Distribution Width 15.0 H Sodium Level 143 White Blood Count 13.2 H Test 09/17/16 08:30 09/17/16 08:33 09/17/16 13:12 09/17/16 17:46 Bedside Glucose 125 132 126 Lab Scanned Report REFERENCE LAB Medications Medications Current Medications Ondansetron HCl (Zofran Inj) 4 mg Q6H PRN IV NAUSEA AND/OR VOMITING Last administered on 09/10/16 23:03; Admin Dose 4 MG; Start 09/09/16 at 20:00 Nitroglycerin (Nitroglycerin (Sl Tab) 0.4 Mg) 1 tab Q5M PRN SL CHEST PAIN; Start 09/09/16 at 20:00 Acetaminophen (Tylenol Liquid) 650 mg Q6H PRN PO PAIN LEVEL 1-3 OR FEVER; Start 09/09/16 at 20:00 Morphine Sulfate (morphine) 2 mg Q4H PRN IV PAIN LEVEL 7-10 Last administered on 09/17/16 06:57; Admin Dose 2 MG; Start 09/09/16 at 20:00 Lorazepam (Ativan) 1 mg Q2H PRN IV ANXIETY Last administered on 09/16/16 20:57 ; Admin Dose 1 MG; Start 09/09/16 at 20:00 Glucose (Glutose) 15 gm Q15M PRN PO DECREASED GLUCOSE; Start 09/09/16 at 20:30 Glucose (Glutose) 22.5 gm Q15M PRN PO DECREASED GLUCOSE; Start 09/09/16 at 20: 30 Dextrose (D50w Syringe) 25 ml Q15M PRN IV DECREASED GLUCOSE; Start 09/09/16 at 20:30 Dextrose (D50w Syringe) 50 ml Q15M PRN IV DECREASED GLUCOSE; Start 09/09/16 at 20:30 Glucagon (Glucagen) 1 mg Q15M PRN IM DECREASED GLUCOSE; Start 09/09/16 at 20:30 Glucose (Glutose) 15 gm Q15M PRN BUCCAL DECREASED GLUCOSE; Start 09/09/16 at 20 :30 Famotidine 20 mg 20 mg DAILY IV Last administered on 09/17/16 08:40; Admin Dose 20 MG; Start 09/10/16 at 09:00 Phenylephrine HCl 160 mg/Dextrose 500 ml @ 0 mls/hr TITRATE IV Last administered on 09/11/16 11:02; Admin Dose 28.12 MLS/HR; Start 09/10/16 at 19: 30 Norepinephrine/ Dextrose (Levophed/D5W) 250 ml @ 0.46 mls/hr TITRATE IV Last administered on 09/12/16 10:16; Admin Dose 14.05 MLS/HR; Start 09/10/16 at 22: 00 Aspirin 81 mg 81 mg DAILY PO Last administered on 09/17/16 08:32; Admin Dose 81 MG; Start 09/12/16 at 09:00 Ceftriaxone Sodium (Rocephin) 50 ml @ 100 mls/hr Q24H IVPB Last administered on 09/17/16 17:06; Admin Dose 100 MLS/HR; Start 09/12/16 at 16:00 Insulin Aspart NOVOLOG *MODERATE* ALGORI... Q4 SC Last administered on 05:01; Admin Dose 2 UNIT; Start 09/13/16 at 13:00 Ferric Sodium Gluconate Complex 125 mg/Sodium Chloride 110 ml @ 110 mls/hr Q24H IVPB Last administered on 09/17/16 10:49; Admin Dose 110 MLS/HR; Start at 10:00; Stop 09/19/16 at 10:59 Doxycycline Hyclate/Sodium Chloride (Vibramycin/NS) 250 ml @ 250 mls/hr Q12 IVPB Last administered on 09/17/16 08:43; Admin Dose 250 MLS/HR; Start at 15:00 Hydralazine HCl (Apresoline) 10 mg Q4H PRN IV SBP >160 Last administered on 06:45; Admin Dose 10 MG; Start 09/17/16 at 07:00 Docusate Sodium (Colace Liquid Cup) 100 mg Q12 PO Last administered on 09:20; Admin Dose 100 MG; Start 09/17/16 at 09:00 JEFF FRANK MD Sep 17, 2016 18:24
[2016-09-17] MEDS: LORAZEPAM 2 MG INJ IV PRN ×2 (21:23→23:16)
[2016-09-17] MEDS ORDERED: LEVALBUTEROL (HFA) 15 GM INHALER INH PRN (21:30)
--- NOTE | 2016-09-17 22:37 | CONS ---
Date/Time of Note Date/Time of Note DATE: 09/17/16 TIME: 22:35 Assessment/Plan Assessment/Plan Chief Complaint/Hosp Course IMPRESSION: 1. Patient has acute kidney injury./atn stable 2. Patient has acute kidney injury possibly due to severe hypotension and sepsis.better 3. vdrf 4.. Patient has leukocytosis, anemia, thrombocytopenia. The patient has Escherichia coli bacteremia, E. coli urinary tract infection. 5 hypokalemia plan iv fluid ck bmp kcl weaning Problems: Consultation Date/Type/Reason Admit Date/Time Sep 09, 2016 at 19:47 Initial Consult Date 09/11/16 Type of Consultation: renal Referring Provider: EMILIANO HENDRICKS 24 HR Interval Summary Constitutional: no complaints Exam/Review of Systems Vital Signs Vitals Vital Signs Date Time Temp Pulse Resp B/P Pulse Ox O2 Delivery O2 Flow Rate FiO2 09/17/16 21:12 106 35 99 30 09/17/16 18:00 163/69 Mechanical Ventilator 09/17/16 16:00 98.0 Intake and Output 09/16/16 09/16/16 09/17/16 15:00 23:00 07:00 Intake Total 580 ml 490 ml 480 ml Output Total 800 ml 450 ml 600 ml Balance -220 ml 40 ml -120 ml Exam Constitutional: other (on vent awake ) Neck: supple Respiratory: clear to auscultation Cardiovascular: regular rate and rhythm Gastrointestinal: bowel sounds (+), soft Extremities: edema (+) Results Result Diagram: 09/17/16 0400 09/17/16 0400 Results 24 hrs Laboratory Tests Test 09/17/16 01:42 09/17/16 04:00 09/17/16 04:57 09/17/16 08:30 Bedside Glucose 182 149 125 Activated Partial Thromboplast Time 32.7 Anion Gap 14 Basophils # 0.0 Basophils % 0.1 Blood Urea Nitrogen 52 H Calcium Level 8.0 L Carbon Dioxide Level 31 Chloride Level 101 Creatinine 2.70 H Differential Comment AUTO w/SCAN Eosinophils # 0.1 Eosinophils % 0.6 Glucose Level 141 Hematocrit 26.3 L Hemoglobin 8.8 L INR International Normalized Ratio 1.28 Lymphocytes # 1.0 Lymphocytes % 7.9 L Mean Corpuscular Hemoglobin 28.8 L Mean Corpuscular Hemoglobin Concent 33.5 Mean Corpuscular Volume 85.9 Mean Platelet Volume 12.8 H Monocytes # 1.1 H Monocytes % 8.5 Neutrophils # 10.8 H Neutrophils % 82.2 H Nucleated Red Blood Cells # 0.0 Nucleated Red Blood Cells % 0.0 Platelet Count 70 #L Platelet Estimate PLT APPEAR DECREASED Potassium Level 3.4 L Prothrombin Time 16.1 H Prothrombin Time Ratio 1.3 Red Blood Count 3.06 L Red Cell Distribution Width 15.0 H Sodium Level 143 White Blood Count 13.2 H Test 09/17/16 08:33 09/17/16 13:12 09/17/16 17:46 09/17/16 20:54 Lab Scanned Report REFERENCE LAB Bedside Glucose 132 126 151 Medications Medications Current Medications Ondansetron HCl (Zofran Inj) 4 mg Q6H PRN IV NAUSEA AND/OR VOMITING Last administered on 09/10/16 23:03; Admin Dose 4 MG; Start 09/09/16 at 20:00 Nitroglycerin (Nitroglycerin (Sl Tab) 0.4 Mg) 1 tab Q5M PRN SL CHEST PAIN; Start 09/09/16 at 20:00 Acetaminophen (Tylenol Liquid) 650 mg Q6H PRN PO PAIN LEVEL 1-3 OR FEVER; Start 09/09/16 at 20:00 Morphine Sulfate (morphine) 2 mg Q4H PRN IV PAIN LEVEL 7-10 Last administered on 09/17/16 21:45; Admin Dose 2 MG; Start 09/09/16 at 20:00 Lorazepam (Ativan) 1 mg Q2H PRN IV ANXIETY Last administered on 09/17/16 21:23 ; Admin Dose 1 MG; Start 09/09/16 at 20:00 Glucose (Glutose) 15 gm Q15M PRN PO DECREASED GLUCOSE; Start 09/09/16 at 20:30 Glucose (Glutose) 22.5 gm Q15M PRN PO DECREASED GLUCOSE; Start 09/09/16 at 20: 30 Dextrose (D50w Syringe) 25 ml Q15M PRN IV DECREASED GLUCOSE; Start 09/09/16 at 20:30 Dextrose (D50w Syringe) 50 ml Q15M PRN IV DECREASED GLUCOSE; Start 09/09/16 at 20:30 Glucagon (Glucagen) 1 mg Q15M PRN IM DECREASED GLUCOSE; Start 09/09/16 at 20:30 Glucose (Glutose) 15 gm Q15M PRN BUCCAL DECREASED GLUCOSE; Start 09/09/16 at 20 :30 Famotidine 20 mg 20 mg DAILY IV Last administered on 09/17/16 08:40; Admin Dose 20 MG; Start 09/10/16 at 09:00 Phenylephrine HCl 160 mg/Dextrose 500 ml @ 0 mls/hr TITRATE IV Last administered on 09/11/16 11:02; Admin Dose 28.12 MLS/HR; Start 09/10/16 at 19: 30 Norepinephrine/ Dextrose (Levophed/D5W) 250 ml @ 0.46 mls/hr TITRATE IV Last administered on 09/12/16 10:16; Admin Dose 14.05 MLS/HR; Start 09/10/16 at 22: 00 Aspirin 81 mg 81 mg DAILY PO Last administered on 09/17/16 08:32; Admin Dose 81 MG; Start 09/12/16 at 09:00 Ceftriaxone Sodium (Rocephin) 50 ml @ 100 mls/hr Q24H IVPB Last administered on 09/17/16 17:06; Admin Dose 100 MLS/HR; Start 09/12/16 at 16:00 Insulin Aspart NOVOLOG *MODERATE* ALGORI... Q4 SC Last administered on 20:57; Admin Dose 2 UNIT; Start 09/13/16 at 13:00 Ferric Sodium Gluconate Complex 125 mg/Sodium Chloride 110 ml @ 110 mls/hr Q24H IVPB Last administered on 09/17/16 10:49; Admin Dose 110 MLS/HR; Start at 10:00; Stop 09/19/16 at 10:59 Doxycycline Hyclate/Sodium Chloride (Vibramycin/NS) 250 ml @ 250 mls/hr Q12 IVPB Last administered on 09/17/16 20:55; Admin Dose 250 MLS/HR; Start at 15:00 Hydralazine HCl (Apresoline) 10 mg Q4H PRN IV SBP >160 Last administered on 21:15; Admin Dose 10 MG; Start 09/17/16 at 07:00 Docusate Sodium (Colace Liquid Cup) 100 mg Q12 PO Last administered on 20:54; Admin Dose 100 MG; Start 2/28/17 at 09:00 QUITA SCHOFIELD MD Sep 17, 2016 22:37
[2016-09-18] VITALS (35 sets, daily range): BP systolic 108–187; BP diastolic 48–85; PULSE 75–119; RESP 12–32
[2016-09-18] MEDS: INSULIN ASPART [NOVOLOG] 3 ML PEN SC SCH ×6 (01:04→20:45)
[2016-09-18 05:51] LABS: ADD SCAN DIFF NO
[2016-09-18 06:06] LABS: INR 1.34; PROTIME 16.7 Sec (12.2-14.2); PT RATIO 1.3
[2016-09-18 06:07] LABS: PARTIAL THROMBOPLASTIN TIME 36.1 Sec (25.0-35.0)
[2016-09-18 06:10] LABS: POTASSIUM 4.2 mmol/L (3.5-5.1)
[2016-09-18 06:12] LABS: CREATININE 2.2 mg/dl (0.44-1.00)
[2016-09-18 06:13] LABS: CALCIUM 8.3 mg/dl (8.4-10.2)
[2016-09-18 06:17] LABS: BASOPHILS % 0.2 % (0.0-2.0); EOSINOPHILS # 0.1 10^3/ul (0.0-0.5); EOSINOPHILS % 0.5 % (0.0-7.0); HEMATOCRIT 28.3 % (37.0-47.0); HEMOGLOBIN 9.2 g/dl (12.0-16.0); LYMPHOCYTES # 1.1 10^3/ul (0.8-2.9); LYMPHOCYTES % 7.7 % (15.0-51.0); MEAN CORPUSCULAR HEMOGLOBIN 28.5 pg (29.0-33.0); MEAN CORPUSCULAR HGB CONC 32.5 g/dl (32.0-37.0); MEAN CORPUSCULAR VOLUME 87.6 fl (82.0-101.0); MEAN PLATELET VOLUME 12.3 fl (7.4-10.4); MONOCYTE # 1.2 10^3/ul (0.3-0.9); MONOCYTES % 8.5 % (0.0-11.0); NEUTROPHIL # 11.5 10^3/ul (1.6-7.5); NEUTROPHILS % 82.1 % (39.0-77.0); PLATELET COUNT 137 10^3/UL (140-415); RED BLOOD COUNT 3.23 10^6/ul (4.20-5.40); RED CELL DISTRIBUTION WIDTH 15.5 % (11.5-14.5); WHITE BLOOD COUNT 13.9 10^3/ul (4.8-10.8)
[2016-09-18] MEDS: FAMOTIDINE 20 MG INJ IV SCH (08:22)
[2016-09-18] MEDS: DOXYCYCLINE 100 MG in SOD CHLORIDE 0.9% 250 ML IVPB SCH ×2 (08:22→20:44)
[2016-09-18] MEDS: ASPIRIN 81 MG TAB PO SCH (08:22)
[2016-09-18] MEDS: DOCUSATE SODIUM 10 MG/ML (10ML CUP) PO SCH ×2 (08:22→20:44)
[2016-09-18] MEDS: SOD FERRIC GLUC COMPLX 125 MG in SOD CHLORIDE 0.9% 100 ML IVPB SCH (09:44)
--- NOTE | 2016-09-18 10:51 | CONS ---
Date/Time of Note Date/Time of Note DATE: 09/18/16 TIME: 10:47 Assessment/Plan Assessment/Plan Additional Assessment/Plan Ventilator settings; currently on CPAP mode with pressure support of 14. 30% FiO2. Assessment and recommendations; 1. Patient admitted with severe gram-negative sepsis from E. coli leading to respiratory failure. 2. Acute renal failure with marked and continued improvement in renal function. 3. Severe metabolic acidosis with interval resolution. 4. Severe thrombocytopenia with continued improvement as well. 5. Patient exhibiting very poor mental status now quite awake and alert. Continue CPAP mode for now. Patient currently is mildly tachypneic and requiring high pressure support. Once the pressure support is down to 10 patient will be evaluated for extubation if she continues to meet extubation criteria. Consultation Date/Type/Reason Admit Date/Time Sep 09, 2016 at 19:47 Initial Consult Date 09/11/16 Type of Consultation: Pulmonary/ critical care Referring Provider: EMILIANO HENDRICKS 24 HR Interval Summary Free Text/Dictation Patient condition remains critical but the patient is exhibiting continued overall improvement. Mental status also is continually improving. Patient has been switched over to CPAP mode again. The patient had to be reverted back to SIMV mode overnight because of mild tachypnea. Next General examination; elderly lady, orally intubated, awake. Currently in no distress. Exam/Review of Systems Vital Signs Vitals Vital Signs Date Time Temp Pulse Resp B/P Pulse Ox O2 Delivery O2 Flow Rate FiO2 09/18/16 10:00 98 26 108/85 97 Mechanical Ventilator 09/18/16 09:33 30 09/18/16 08:00 98.6 Intake and Output 09/17/16 09/17/16 09/18/16 15:00 23:00 07:00 Intake Total 680 ml 570 ml 220 ml Output Total 480 ml 505 ml 550 ml Balance 200 ml 65 ml -330 ml Exam HEENT examination; supple neck, no JVD. No lymphadenopathy. Midline trachea. No thyromegaly. Orally intubated. It was a small bilaterally. Chest examination; clear to auscultation bilaterally. S1-S2 audible, no murmurs. Regular rhythm. Abdomen examination; soft, nondistended. No organomegaly. Bowel sounds audible. Extremity examination; no peripheral edema. RESPIRATORY CARE SPECIALIST examination; patient is awake and moves all 4 extremities spontaneously. Follows some commands. Results Result Diagram: 09/18/16 0525 09/18/16 0525 Results 24 hrs Laboratory Tests Test 09/17/16 13:12 09/17/16 17:46 09/17/16 20:54 09/18/16 01:01 Bedside Glucose 132 126 151 193 Test 09/18/16 04:47 09/18/16 05:25 09/18/16 08:20 Bedside Glucose 190 126 Activated Partial Thromboplast Time 36.1 H Anion Gap 16 Basophils # 0.0 Basophils % 0.2 Blood Urea Nitrogen 45 H Calcium Level 8.3 L Carbon Dioxide Level 29 Chloride Level 107 Creatinine 2.20 H Eosinophils # 0.1 Eosinophils % 0.5 Glucose Level 164 Hematocrit 28.3 L Hemoglobin 9.2 L INR International Normalized Ratio 1.34 Lymphocytes # 1.1 Lymphocytes % 7.7 L Mean Corpuscular Hemoglobin 28.5 L Mean Corpuscular Hemoglobin Concent 32.5 Mean Corpuscular Volume 87.6 Mean Platelet Volume 12.3 H Monocytes # 1.2 H Monocytes % 8.5 Neutrophils # 11.5 H Neutrophils % 82.1 H Nucleated Red Blood Cells # 0.0 Nucleated Red Blood Cells % 0.0 Platelet Count 137 #L Potassium Level 4.2 Prothrombin Time 16.7 H Prothrombin Time Ratio 1.3 Red Blood Count 3.23 L Red Cell Distribution Width 15.5 H Sodium Level 148 H White Blood Count 13.9 H Medications Medications Current Medications Ondansetron HCl (Zofran Inj) 4 mg Q6H PRN IV NAUSEA AND/OR VOMITING Last administered on 09/10/16 23:03; Admin Dose 4 MG; Start 09/09/16 at 20:00 Nitroglycerin (Nitroglycerin (Sl Tab) 0.4 Mg) 1 tab Q5M PRN SL CHEST PAIN; Start 09/09/16 at 20:00 Acetaminophen (Tylenol Liquid) 650 mg Q6H PRN PO PAIN LEVEL 1-3 OR FEVER; Start 09/09/16 at 20:00 Morphine Sulfate (morphine) 2 mg Q4H PRN IV PAIN LEVEL 7-10 Last administered on 09/17/16 21:45; Admin Dose 2 MG; Start 09/09/16 at 20:00 Lorazepam (Ativan) 1 mg Q2H PRN IV ANXIETY Last administered on 09/17/16 23:16 ; Admin Dose 1 MG; Start 09/09/16 at 20:00 Glucose (Glutose) 15 gm Q15M PRN PO DECREASED GLUCOSE; Start 09/09/16 at 20:30 Glucose (Glutose) 22.5 gm Q15M PRN PO DECREASED GLUCOSE; Start 09/09/16 at 20: 30 Dextrose (D50w Syringe) 25 ml Q15M PRN IV DECREASED GLUCOSE; Start 09/09/16 at 20:30 Dextrose (D50w Syringe) 50 ml Q15M PRN IV DECREASED GLUCOSE; Start 09/09/16 at 20:30 Glucagon (Glucagen) 1 mg Q15M PRN IM DECREASED GLUCOSE; Start 09/09/16 at 20:30 Glucose (Glutose) 15 gm Q15M PRN BUCCAL DECREASED GLUCOSE; Start 09/09/16 at 20 :30 Famotidine 20 mg 20 mg DAILY IV Last administered on 09/18/16 08:22; Admin Dose 20 MG; Start 09/10/16 at 09:00 Phenylephrine HCl 160 mg/Dextrose 500 ml @ 0 mls/hr TITRATE IV Last administered on 09/11/16 11:02; Admin Dose 28.12 MLS/HR; Start 09/10/16 at 19: 30 Norepinephrine/ Dextrose (Levophed/D5W) 250 ml @ 0.46 mls/hr TITRATE IV Last administered on 09/12/16 10:16; Admin Dose 14.05 MLS/HR; Start 09/10/16 at 22: 00 Aspirin 81 mg 81 mg DAILY PO Last administered on 09/18/16 08:22; Admin Dose 81 MG; Start 09/12/16 at 09:00 Ceftriaxone Sodium (Rocephin) 50 ml @ 100 mls/hr Q24H IVPB Last administered on 09/17/16 17:06; Admin Dose 100 MLS/HR; Start 09/12/16 at 16:00 Insulin Aspart NOVOLOG *MODERATE* ALGORI... Q4 SC Last administered on 05:41; Admin Dose 4 UNIT; Start 09/13/16 at 13:00 Ferric Sodium Gluconate Complex 125 mg/Sodium Chloride 110 ml @ 110 mls/hr Q24H IVPB Last administered on 09/18/16 09:44; Admin Dose 110 MLS/HR; Start at 10:00; Stop 09/19/16 at 10:59 Doxycycline Hyclate/Sodium Chloride (Vibramycin/NS) 250 ml @ 250 mls/hr Q12 IVPB Last administered on 09/18/16 08:22; Admin Dose 250 MLS/HR; Start at 15:00 Hydralazine HCl (Apresoline) 10 mg Q4H PRN IV SBP >160 Last administered on 21:15; Admin Dose 10 MG; Start 09/17/16 at 07:00 Docusate Sodium (Colace Liquid Cup) 100 mg Q12 PO Last administered on 08:22; Admin Dose 100 MG; Start 09/17/16 at 09:00 DEANNA MONSALVE Sep 18, 2016 10:51
--- NOTE | 2016-09-18 11:06 | CONS ---
Date/Time of Note Date/Time of Note DATE: 09/18/16 TIME: 11:02 Assessment/Plan Assessment/Plan Chief Complaint/Hosp Course IMPRESSION: 1. Positive troponin, assess significance, assess for true acute coronary syndrome.-now downtrending in setting ongoing renal failure 2. Hypotension, shock state. Rule out cardiac etiology-EF 45-50 by echo this admit-improved off of pressors 3. Abnormal electrocardiogram, assess for acute coronary syndrome. 4. Respiratory failure-remains intuated 5. Leukocytosis. 6. Anemia. 7. Thrombocytopenia-slowly improving 8. Renal failure-ongoing 9. Bacteremia with gram negative rods. REcc: -Tele -continue abx's and f/u ca data -ASA as tolerated only given low platelets -Start BB given positive troponin -Follow volume status closely -Wean vent as tolerated Problems: Consultation Date/Type/Reason Admit Date/Time Sep 09, 2016 at 19:47 Initial Consult Date 09/11/16 Type of Consultation: Cardiology Reason for Consultation positive troponin Referring Provider: EMILIANO HENDRICKS Exam/Review of Systems Vital Signs Vitals Vital Signs Date Time Temp Pulse Resp B/P Pulse Ox O2 Delivery O2 Flow Rate FiO2 09/18/16 10:00 98 26 108/85 97 Mechanical Ventilator 09/18/16 09:33 30 09/18/16 08:00 98.6 Intake and Output 09/17/16 09/17/16 09/18/16 15:00 23:00 07:00 Intake Total 680 ml 570 ml 220 ml Output Total 480 ml 505 ml 550 ml Balance 200 ml 65 ml -330 ml Exam Review of Systems: CONSTITUTIONAL: No fevers, chills. PULMONARY: intubated CARDIOVASCULAR: No obvious chest pain/palpitations GASTROINTESTINAL: No nausea/vomiting. GENITOURINARY: No hematuria/dysuria. MUSCULOSKELETAL: No myagias/arthalgias. PSYCHIATRIC: The patient denies depression. NEUROLOGIC: No weakness Constitutional: other (sedated) Psych: no complaints Head: normocephalic ENMT: intubated Neck: jvd (9 cm water), supple Respiratory: diminished breath sounds Cardiovascular: regular rate and rhythm Gastrointestinal: soft Musculoskeletal: muscle tone Extremities: normal pulses Neurological: other Results Result Diagram: 09/18/16 0525 09/18/16 0525 Results 24 hrs Laboratory Tests Test 09/17/16 13:12 09/17/16 17:46 09/17/16 20:54 09/18/16 01:01 Bedside Glucose 132 126 151 193 Test 09/18/16 04:47 09/18/16 05:25 09/18/16 08:20 Bedside Glucose 190 126 Activated Partial Thromboplast Time 36.1 H Anion Gap 16 Basophils # 0.0 Basophils % 0.2 Blood Urea Nitrogen 45 H Calcium Level 8.3 L Carbon Dioxide Level 29 Chloride Level 107 Creatinine 2.20 H Eosinophils # 0.1 Eosinophils % 0.5 Glucose Level 164 Hematocrit 28.3 L Hemoglobin 9.2 L INR International Normalized Ratio 1.34 Lymphocytes # 1.1 Lymphocytes % 7.7 L Mean Corpuscular Hemoglobin 28.5 L Mean Corpuscular Hemoglobin Concent 32.5 Mean Corpuscular Volume 87.6 Mean Platelet Volume 12.3 H Monocytes # 1.2 H Monocytes % 8.5 Neutrophils # 11.5 H Neutrophils % 82.1 H Nucleated Red Blood Cells # 0.0 Nucleated Red Blood Cells % 0.0 Platelet Count 137 #L Potassium Level 4.2 Prothrombin Time 16.7 H Prothrombin Time Ratio 1.3 Red Blood Count 3.23 L Red Cell Distribution Width 15.5 H Sodium Level 148 H White Blood Count 13.9 H Medications Medications Current Medications Ondansetron HCl (Zofran Inj) 4 mg Q6H PRN IV NAUSEA AND/OR VOMITING Last administered on 09/10/16 23:03; Admin Dose 4 MG; Start 09/09/16 at 20:00 Nitroglycerin (Nitroglycerin (Sl Tab) 0.4 Mg) 1 tab Q5M PRN SL CHEST PAIN; Start 09/09/16 at 20:00 Acetaminophen (Tylenol Liquid) 650 mg Q6H PRN PO PAIN LEVEL 1-3 OR FEVER; Start 09/09/16 at 20:00 Morphine Sulfate (morphine) 2 mg Q4H PRN IV PAIN LEVEL 7-10 Last administered on 09/17/16 21:45; Admin Dose 2 MG; Start 09/09/16 at 20:00 Lorazepam (Ativan) 1 mg Q2H PRN IV ANXIETY Last administered on 09/17/16 23:16 ; Admin Dose 1 MG; Start 09/09/16 at 20:00 Glucose (Glutose) 15 gm Q15M PRN PO DECREASED GLUCOSE; Start 09/09/16 at 20:30 Glucose (Glutose) 22.5 gm Q15M PRN PO DECREASED GLUCOSE; Start 09/09/16 at 20: 30 Dextrose (D50w Syringe) 25 ml Q15M PRN IV DECREASED GLUCOSE; Start 09/09/16 at 20:30 Dextrose (D50w Syringe) 50 ml Q15M PRN IV DECREASED GLUCOSE; Start 09/09/16 at 20:30 Glucagon (Glucagen) 1 mg Q15M PRN IM DECREASED GLUCOSE; Start 09/09/16 at 20:30 Glucose (Glutose) 15 gm Q15M PRN BUCCAL DECREASED GLUCOSE; Start 09/09/16 at 20 :30 Famotidine 20 mg 20 mg DAILY IV Last administered on 09/18/16 08:22; Admin Dose 20 MG; Start 09/10/16 at 09:00 Phenylephrine HCl 160 mg/Dextrose 500 ml @ 0 mls/hr TITRATE IV Last administered on 09/11/16 11:02; Admin Dose 28.12 MLS/HR; Start 09/10/16 at 19: 30 Norepinephrine/ Dextrose (Levophed/D5W) 250 ml @ 0.46 mls/hr TITRATE IV Last administered on 09/12/16 10:16; Admin Dose 14.05 MLS/HR; Start 09/10/16 at 22: 00 Aspirin 81 mg 81 mg DAILY PO Last administered on 09/18/16 08:22; Admin Dose 81 MG; Start 09/12/16 at 09:00 Ceftriaxone Sodium (Rocephin) 50 ml @ 100 mls/hr Q24H IVPB Last administered on 09/17/16 17:06; Admin Dose 100 MLS/HR; Start 09/12/16 at 16:00 Insulin Aspart NOVOLOG *MODERATE* ALGORI... Q4 SC Last administered on 05:41; Admin Dose 4 UNIT; Start 09/13/16 at 13:00 Ferric Sodium Gluconate Complex 125 mg/Sodium Chloride 110 ml @ 110 mls/hr Q24H IVPB Last administered on 09/18/16 09:44; Admin Dose 110 MLS/HR; Start at 10:00; Stop 09/19/16 at 10:59 Doxycycline Hyclate/Sodium Chloride (Vibramycin/NS) 250 ml @ 250 mls/hr Q12 IVPB Last administered on 09/18/16 08:22; Admin Dose 250 MLS/HR; Start at 15:00 Hydralazine HCl (Apresoline) 10 mg Q4H PRN IV SBP >160 Last administered on 21:15; Admin Dose 10 MG; Start 09/17/16 at 07:00 Docusate Sodium (Colace Liquid Cup) 100 mg Q12 PO Last administered on 08:22; Admin Dose 100 MG; Start 09/17/16 at 09:00 ALLISON CONTRERAS Sep 18, 2016 11:06
[2016-09-18 11:32] LABS: AADO2 Arterial 101.6 mmHg (7.0-24.0); Allen Test ACCEPTAB; Arterial Base Excess 3.6 mmol/L (-3.0-3); Arterial COHb 0.3 % (0.0-3.0); Arterial Fraction of Oxyhgb 96.5 % (93.0-99.0); Arterial HCO3 28.1 mmol/L (22.0-26.0); Arterial MetHb 0.5 % (0.0-1.5); Arterial Total Hemglobin 10.9 g/dl (12.0-18.0); Blood Gas PS 15; MODE VENT - CPAP
[2016-09-18 12:45] LABS: CREATINE KINASE < 20 IU/L (23-200)
[2016-09-18 12:51] LABS: CK-MB < 0.22 ng/ml (0.0-2.4); TROPONIN-I 0.019 ng/ml (0.00-0.12)
[2016-09-18] MEDS: METOPROLOL 25 MG TAB PO SCH ×2 (13:17→20:44)
--- NOTE | 2016-09-18 14:16 | PN ---
Date/Time of Note Date/Time of Note DATE: 09/18/16 TIME: 14:10 Assessment/Plan VTE Prophylaxis VTE Prophylaxis Intervention: contraindicated, SCD's VTE Contraindication Reason: thrombocytopenia Lines/Catheters IV Catheter Type (from Nrs): Central Line Central line still needed: Yes Urinary Cath still in place: Yes Reason Cath still needed: urinary retention Assessment/Plan Chief Complaint/Hosp Course Assessment/Plan: 75 yo female with a past medical history of type II DM, chronic pain who complains of weakness and decreased urinary output for the last several days, found with septic shock. 1. Severe Sepsis with septic shock - 2/2 Ecoli UTI /Bacteremia - pressors off, and on abx. - Continue broad spectrum abx / Appreciate ID consult, f/u rec's - Continue ICU care 2. Acute renal failure r/o CKD- 2/2 to ATN from sepsis - improving now - monitor UO, Cr, f/u renal rec's 3. Type II DM - controlled on SSI - SSI only for now 4. Metabolic / Lactic acidosis 2/2 #1: resolved 5. Acute resp failure now ventilator dependent - on SIMV presently - Continue Vent mgt/appreciate pulm input - wean off as tolerated 6. NSTEMI versus elevated trop - CV monitoring. ECHO = EF 45-50 by echo this admit. - Daily aspirin - start BB per CV team 7. new onset thrombocytopenia: improved (38 -> 70 -> 137) - per heme Onc does not appear to be DIC. possibly is sec to sepsis and per per Heme/Onc, pt was also exposed to multiple meds with pos thrombocytopenic effect, including VANCO , ZOSYN, HEPARIN,CEFAZOLIN. HIT antibody negative/ s/p FFP and platelet transfusion. - monitor for now, transfuse if plts < 20,000 per heme/Onc rec's. 8. Severe Iron deficiency: pt also now with + occult test stool. No signs of GI bleeding presently. - IV iron infusion - GI planning for EGD when CV clearance PROPHYLAXIS: Pepcid / SCDS CRITICAL CARE TIME: 45 mins Problems: Subjective 24 Hr Interval Summary Free Text/Dictation Pt still intubated. Seen by GI and CV team. Exam/Review of Systems Vital Signs Vitals Vital Signs Date Time Temp Pulse Resp B/P Pulse Ox O2 Delivery O2 Flow Rate FiO2 09/18/16 13:11 121 25 100 30 09/18/16 11:00 162/69 Mechanical Ventilator 09/18/16 08:00 98.6 Intake and Output 09/17/16 09/17/16 09/18/16 15:00 23:00 07:00 Intake Total 680 ml 570 ml 220 ml Output Total 480 ml 505 ml 625 ml Balance 200 ml 65 ml -405 ml Exam Constitutional: frail, No alert, No oriented, intubated Head: normocephalic Eyes: PERRL, icteric ENMT: intubated Respiratory: clear to auscultation, diminished breath sounds Cardiovascular: regular rate and rhythm, No murmurs/extra sounds Gastrointestinal: bowel sounds, distended, other (large periumbilical hernia), soft Genitourinary - Female: other (montoya draining clear urine) Extremities: No edema Neurological: No nl mental status Results Result Diagram: 09/18/16 0525 09/18/16 0525 Results 24 hrs Laboratory Tests Test 09/17/16 17:46 09/17/16 20:54 09/18/16 01:01 09/18/16 04:47 Bedside Glucose 126 151 193 190 Test 09/18/16 05:25 09/18/16 08:00 09/18/16 08:20 09/18/16 12:06 Activated Partial Thromboplast Time 36.1 H Anion Gap 16 Basophils # 0.0 Basophils % 0.2 Blood Urea Nitrogen 45 H Calcium Level 8.3 L Carbon Dioxide Level 29 Chloride Level 107 Creatinine 2.20 H Eosinophils # 0.1 Eosinophils % 0.5 Glucose Level 164 Hematocrit 28.3 L Hemoglobin 9.2 L INR International Normalized Ratio 1.34 Lymphocytes # 1.1 Lymphocytes % 7.7 L Mean Corpuscular Hemoglobin 28.5 L Mean Corpuscular Hemoglobin Concent 32.5 Mean Corpuscular Volume 87.6 Mean Platelet Volume 12.3 H Monocytes # 1.2 H Monocytes % 8.5 Neutrophils # 11.5 H Neutrophils % 82.1 H Nucleated Red Blood Cells # 0.0 Nucleated Red Blood Cells % 0.0 Platelet Count 137 #L Potassium Level 4.2 Prothrombin Time 16.7 H Prothrombin Time Ratio 1.3 Red Blood Count 3.23 L Red Cell Distribution Width 15.5 H Sodium Level 148 H White Blood Count 13.9 H Arterial Blood HCO3 28.1 H Arterial Blood Base Excess 3.6 H Arterial Blood Oxygen Saturation 97.3 Jarett Test ACCEPTAB Arterial Blood Gas Puncture Site Left Radial Arterial Blood Carboxyhemoglobin 0.3 Arterial Blood Date Drawn 09/18/2016 11:20:46 AM Arterial Blood Methemoglobin 0.5 Arterial Blood pCO2 (Temp correct) 42.2 Arterial Blood pH (Temp corrected) 7.441 Arterial Blood pO2 (Temp corrected) 98.9 H Blood Gas A-a O2 Differential 101.6 H Blood Gas Actual Respiration Rate 21 Blood Gas Low PEEP Setting 5.0 Blood Gas Modality VENT - CPAP Blood Gas Notified Time 09/18/2016 11:30:33 AM Blood Gas Notified Whom T KASSAII Blood Gas Pressure Support 15 Blood Gas Specimen Source Blood arterial Blood Gas Temperature 37.0 FiO2 35.0 Oxyhemoglobin Percent 96.5 Total Hemoglobin 10.9 L Bedside Glucose 126 Creatine Kinase < 20 L Creatine Kinase Index Creatinine Kinase MB (Mass) < 0.22 Troponin I 0.019 Test 09/18/16 13:16 Bedside Glucose 131 Medications Medications Current Medications Ondansetron HCl (Zofran Inj) 4 mg Q6H PRN IV NAUSEA AND/OR VOMITING Last administered on 09/10/16 23:03; Admin Dose 4 MG; Start 09/09/16 at 20:00 Nitroglycerin (Nitroglycerin (Sl Tab) 0.4 Mg) 1 tab Q5M PRN SL CHEST PAIN; Start 09/09/16 at 20:00 Acetaminophen (Tylenol Liquid) 650 mg Q6H PRN PO PAIN LEVEL 1-3 OR FEVER; Start 09/09/16 at 20:00 Morphine Sulfate (morphine) 2 mg Q4H PRN IV PAIN LEVEL 7-10 Last administered on 09/17/16 21:45; Admin Dose 2 MG; Start 09/09/16 at 20:00 Lorazepam (Ativan) 1 mg Q2H PRN IV ANXIETY Last administered on 09/17/16 23:16 ; Admin Dose 1 MG; Start 09/09/16 at 20:00 Glucose (Glutose) 15 gm Q15M PRN PO DECREASED GLUCOSE; Start 09/09/16 at 20:30 Glucose (Glutose) 22.5 gm Q15M PRN PO DECREASED GLUCOSE; Start 09/09/16 at 20: 30 Dextrose (D50w Syringe) 25 ml Q15M PRN IV DECREASED GLUCOSE; Start 09/09/16 at 20:30 Dextrose (D50w Syringe) 50 ml Q15M PRN IV DECREASED GLUCOSE; Start 09/09/16 at 20:30 Glucagon (Glucagen) 1 mg Q15M PRN IM DECREASED GLUCOSE; Start 09/09/16 at 20:30 Glucose (Glutose) 15 gm Q15M PRN BUCCAL DECREASED GLUCOSE; Start 09/09/16 at 20 :30 Famotidine 20 mg 20 mg DAILY IV Last administered on 09/18/16 08:22; Admin Dose 20 MG; Start 09/10/16 at 09:00 Phenylephrine HCl 160 mg/Dextrose 500 ml @ 0 mls/hr TITRATE IV Last administered on 09/11/16 11:02; Admin Dose 28.12 MLS/HR; Start 09/10/16 at 19: 30 Norepinephrine/ Dextrose (Levophed/D5W) 250 ml @ 0.46 mls/hr TITRATE IV Last administered on 09/12/16 10:16; Admin Dose 14.05 MLS/HR; Start 09/10/16 at 22: 00 Aspirin 81 mg 81 mg DAILY PO Last administered on 09/18/16 08:22; Admin Dose 81 MG; Start 09/12/16 at 09:00 Ceftriaxone Sodium (Rocephin) 50 ml @ 100 mls/hr Q24H IVPB Last administered on 09/17/16 17:06; Admin Dose 100 MLS/HR; Start 09/12/16 at 16:00 Insulin Aspart NOVOLOG *MODERATE* ALGORI... Q4 SC Last administered on 05:41; Admin Dose 4 UNIT; Start 09/13/16 at 13:00 Ferric Sodium Gluconate Complex 125 mg/Sodium Chloride 110 ml @ 110 mls/hr Q24H IVPB Last administered on 09/18/16 09:44; Admin Dose 110 MLS/HR; Start at 10:00; Stop 09/19/16 at 10:59 Doxycycline Hyclate/Sodium Chloride (Vibramycin/NS) 250 ml @ 250 mls/hr Q12 IVPB Last administered on 09/18/16 08:22; Admin Dose 250 MLS/HR; Start at 15:00 Hydralazine HCl (Apresoline) 10 mg Q4H PRN IV SBP >160 Last administered on 21:15; Admin Dose 10 MG; Start 09/17/16 at 07:00 Docusate Sodium (Colace Liquid Cup) 100 mg Q12 PO Last administered on 08:22; Admin Dose 100 MG; Start 09/17/16 at 09:00 Metoprolol Tartrate (Lopressor) 25 mg BID PO Last administered on 09/18/16 13: 17; Admin Dose 25 MG; Start 09/18/16 at 12:00 MARIO ALBERTO CLAUDIO Sep 18, 2016 14:16
--- NOTE | 2016-09-18 15:05 | PN ---
DATE: 09/18/2016 SUBJECTIVE: No acute events overnight. The patient is on CPAP, tachycardic, tachypneic and hyperte nsive. Family at bedside. She is in no distress, no fevers overnight with a temperature max of 99. 6 this morning. LABORATORY DATA: WBC 13.9, H and H 9.1 and 28.3, platelets 137, no bands. BUN 45, creatinine 2.20. MICROBIOLOGY: Repeat blood cultures have been negative. ANTIMICROBIALS: The patient is on: 1. Doxycycline. 2. Rocephin. INDWELLINGS: Endotracheal tube, NG tube, Alaniz catheter, right chest Bruce. PHYSICAL EXAMINATION: GENERAL: This is a fragile, elderly woman who is lying comfortably in bed. HEENT: Head atraumatic, normocephalic. Sclerae anicteric. Buccal mucosa dry. NECK: Supple. CHEST: Rise symmetrical. Breath sounds with bilateral scattered rhonchi. HEART: S1, S2. ABDOMEN: Soft. Bowel sounds present. EXTREMITIES: With trace edema. ASSESSMENT: 1. Sepsis status post shock. 2. Escherichia coli urinary tract infection with bacteremia. 3. Right upper extremity cellulitis. 4. Acute respiratory failure. 5. Acute encephalopathy. 6. Acute renal failure. 7. Coagulopathy with anemia and thrombocytopenia secondary to DIC. PLAN: The patient remains hemodynamically stable. Repeat blood culture on 09/12/2016 negative. Babs zuniga is on appropriate antimicrobials. Platelet count slowly tracing up. Continue present care. Wean ing trial per pulmonary. Dictated By: CHLOE MONROY LIFTER/DRIVER for DELANO RODRIGUEZ/NTS Conf#: [id number] DID#: [id number]
[2016-09-18] MEDS: morphine 2 MG INJ IV PRN (15:19)
[2016-09-18] MEDS: CEFTRIAXONE 1 GM/50 ML (PMX) 50 ML IVPB SCH (16:36)
[2016-09-18] MEDS ORDERED: MIDAZOLAM 1 MG/ML 2 ML INJ IV ONE (17:30)
[2016-09-18] MEDS ORDERED: FENTAnyl 50 MCG/ML VIAL IV ONE (17:30)
--- NOTE | 2016-09-18 20:31 | CONS ---
Date/Time of Note Date/Time of Note DATE: 09/18/16 TIME: 20:29 Assessment/Plan Assessment/Plan Chief Complaint/Hosp Course IMPRESSION: thrombocytopenia in pt with severe sepsis, exposed to multiple meds with pos thrombocytopenic effect, including VANCO, ZOSYN, HEPARIN,CEFAZOLIN NO EVIDENCE DIC s/p FFP yesterday and platelet transfusion today cont to monitor blood count closely transfuse if platelet count less than [address]015, considering severe sepsis HIPA- NEG PLATELET COUNT IMPROVING Leukocytosis. REACTIVE MONITOR Anemia. C/W ACD MONITOR BLOOD COUNT CLOSELY Severe Sepsis with septic shock / Ecoli UTI /Bacteremia Acute renal failure - 2/ to ATN from sepsis Type II DM - Hyperglycemic on D5W Metabolic / Lactic acidosis / #1 Acute resp failure now ventilator dependent NSTEMI versus demand ischemia Positive troponin, assess significance, assess for true acute coronary syndrome. Metabolic acidosis respiratory failure, vent dependent incomplete database Thank you for allowing me to take part in the care of this patient. I will continue to follow along very closely with you. Further recommendations will be made as the patient progresses through her inpatient hospital clinical course. Problems: Consultation Date/Type/Reason Admit Date/Time Sep 09, 2016 at 19:47 Initial Consult Date 09/13/16 Type of Consultation: HEMEON Referring Provider: EMILIANO HENDRICKS 24 HR Interval Summary Free Text/Dictation Pt still intubated. Seen by GI and CV team. PLATELET COUNT IMPROVING Exam/Review of Systems Vital Signs Vitals Vital Signs Date Time Temp Pulse Resp B/P Pulse Ox O2 Delivery O2 Flow Rate FiO2 09/18/16 19:25 87 21 100 30 09/18/16 18:00 111/48 Mechanical Ventilator 09/18/16 16:00 99.0 Intake and Output 09/17/16 09/17/16 09/18/16 15:00 23:00 07:00 Intake Total 680 ml 570 ml 220 ml Output Total 480 ml 505 ml 625 ml Balance 200 ml 65 ml -405 ml Exam General: WN/WD/NAD, AOx 0, seadted HEENT: Unicetric/atraumatic/EOMI (does not follow commands) NECK: JVD elevated, no thyromegaly, intub Lymph: no lymphadenopathy HEART: regular with no S3, II/ systolic murmur at apex LUNGS: Coarse sounds ABD: soft, NT, ND, +BS : Intact Neuro: non focal SKIN: chronic changes EXT: trace edema Results Result Diagram: 09/18/16 0525 09/18/16 0525 Results 24 hrs Laboratory Tests Test 09/17/16 20:54 09/18/16 01:01 09/18/16 04:47 09/18/16 05:25 Bedside Glucose 151 193 190 Activated Partial Thromboplast Time 36.1 H Anion Gap 16 Basophils # 0.0 Basophils % 0.2 Blood Urea Nitrogen 45 H Calcium Level 8.3 L Carbon Dioxide Level 29 Chloride Level 107 Creatinine 2.20 H Eosinophils # 0.1 Eosinophils % 0.5 Glucose Level 164 Hematocrit 28.3 L Hemoglobin 9.2 L INR International Normalized Ratio 1.34 Lymphocytes # 1.1 Lymphocytes % 7.7 L Mean Corpuscular Hemoglobin 28.5 L Mean Corpuscular Hemoglobin Concent 32.5 Mean Corpuscular Volume 87.6 Mean Platelet Volume 12.3 H Monocytes # 1.2 H Monocytes % 8.5 Neutrophils # 11.5 H Neutrophils % 82.1 H Nucleated Red Blood Cells # 0.0 Nucleated Red Blood Cells % 0.0 Platelet Count 137 #L Potassium Level 4.2 Prothrombin Time 16.7 H Prothrombin Time Ratio 1.3 Red Blood Count 3.23 L Red Cell Distribution Width 15.5 H Sodium Level 148 H White Blood Count 13.9 H Test 09/18/16 08:00 09/18/16 08:20 09/18/16 12:06 09/18/16 13:16 Arterial Blood HCO3 28.1 H Arterial Blood Base Excess 3.6 H Arterial Blood Oxygen Saturation 97.3 Jarett Test ACCEPTAB Arterial Blood Gas Puncture Site Left Radial Arterial Blood Carboxyhemoglobin 0.3 Arterial Blood Date Drawn 09/18/2016 11:20:46 AM Arterial Blood Methemoglobin 0.5 Arterial Blood pCO2 (Temp correct) 42.2 Arterial Blood pH (Temp corrected) 7.441 Arterial Blood pO2 (Temp corrected) 98.9 H Blood Gas A-a O2 Differential 101.6 H Blood Gas Actual Respiration Rate 21 Blood Gas Low PEEP Setting 5.0 Blood Gas Modality VENT - CPAP Blood Gas Notified Time 09/18/2016 11:30:33 AM Blood Gas Notified Whom T KASSAII Blood Gas Pressure Support 15 Blood Gas Specimen Source Blood arterial Blood Gas Temperature 37.0 FiO2 35.0 Oxyhemoglobin Percent 96.5 Total Hemoglobin 10.9 L Bedside Glucose 126 131 Creatine Kinase < 20 L Creatine Kinase Index Creatinine Kinase MB (Mass) < 0.22 Troponin I 0.019 Test 09/18/16 16:33 Bedside Glucose 135 Medications Medications Current Medications Ondansetron HCl (Zofran Inj) 4 mg Q6H PRN IV NAUSEA AND/OR VOMITING Last administered on 09/10/16 23:03; Admin Dose 4 MG; Start 09/09/16 at 20:00 Nitroglycerin (Nitroglycerin (Sl Tab) 0.4 Mg) 1 tab Q5M PRN SL CHEST PAIN; Start 09/09/16 at 20:00 Acetaminophen (Tylenol Liquid) 650 mg Q6H PRN PO PAIN LEVEL 1-3 OR FEVER; Start 09/09/16 at 20:00 Morphine Sulfate (morphine) 2 mg Q4H PRN IV PAIN LEVEL 7-10 Last administered on 09/18/16 15:19; Admin Dose 2 MG; Start 09/09/16 at 20:00 Lorazepam (Ativan) 1 mg Q2H PRN IV ANXIETY Last administered on 09/17/16 23:16 ; Admin Dose 1 MG; Start 09/09/16 at 20:00 Glucose (Glutose) 15 gm Q15M PRN PO DECREASED GLUCOSE; Start 09/09/16 at 20:30 Glucose (Glutose) 22.5 gm Q15M PRN PO DECREASED GLUCOSE; Start 09/09/16 at 20: 30 Dextrose (D50w Syringe) 25 ml Q15M PRN IV DECREASED GLUCOSE; Start 09/09/16 at 20:30 Dextrose (D50w Syringe) 50 ml Q15M PRN IV DECREASED GLUCOSE; Start 09/09/16 at 20:30 Glucagon (Glucagen) 1 mg Q15M PRN IM DECREASED GLUCOSE; Start 09/09/16 at 20:30 Glucose (Glutose) 15 gm Q15M PRN BUCCAL DECREASED GLUCOSE; Start 09/09/16 at 20 :30 Famotidine 20 mg 20 mg DAILY IV Last administered on 09/18/16 08:22; Admin Dose 20 MG; Start 09/10/16 at 09:00 Phenylephrine HCl 160 mg/Dextrose 500 ml @ 0 mls/hr TITRATE IV Last administered on 09/11/16 11:02; Admin Dose 28.12 MLS/HR; Start 09/10/16 at 19: 30 Norepinephrine/ Dextrose (Levophed/D5W) 250 ml @ 0.46 mls/hr TITRATE IV Last administered on 09/12/16 10:16; Admin Dose 14.05 MLS/HR; Start 09/10/16 at 22: 00 Aspirin 81 mg 81 mg DAILY PO Last administered on 09/18/16 08:22; Admin Dose 81 MG; Start 09/12/16 at 09:00 Ceftriaxone Sodium (Rocephin) 50 ml @ 100 mls/hr Q24H IVPB Last administered on 09/18/16 16:36; Admin Dose 100 MLS/HR; Start 09/12/16 at 16:00 Insulin Aspart NOVOLOG *MODERATE* ALGORI... Q4 SC Last administered on 05:41; Admin Dose 4 UNIT; Start 09/13/16 at 13:00 Ferric Sodium Gluconate Complex 125 mg/Sodium Chloride 110 ml @ 110 mls/hr Q24H IVPB Last administered on 09/18/16 09:44; Admin Dose 110 MLS/HR; Start at 10:00; Stop 09/19/16 at 10:59 Doxycycline Hyclate/Sodium Chloride (Vibramycin/NS) 250 ml @ 250 mls/hr Q12 IVPB Last administered on 09/18/16 08:22; Admin Dose 250 MLS/HR; Start at 15:00 Hydralazine HCl (Apresoline) 10 mg Q4H PRN IV SBP >160 Last administered on 21:15; Admin Dose 10 MG; Start 09/17/16 at 07:00 Docusate Sodium (Colace Liquid Cup) 100 mg Q12 PO Last administered on 08:22; Admin Dose 100 MG; Start 09/17/16 at 09:00 Metoprolol Tartrate (Lopressor) 25 mg BID PO Last administered on 09/18/16 13: 17; Admin Dose 25 MG; Start 09/18/16 at 12:00 JEFF FRANK MD Sep 18, 2016 20:31
--- NOTE | 2016-09-18 20:36 | GILP ---
DATE OF PROCEDURE: NAME OF PROCEDURE: Esophagogastroduodenoscopy with biopsies. SURGEON: Salina Pinon MD. HISTORY AND INDICATIONS: The patient is being evaluated for gastrointestinal bleeding and anemia. PREMEDICATION: Monitored anesthesia care by anesthesiologist. INSTRUMENT USED: Olympus panendoscope. TECHNIQUE: After informed consent, with the patient/relatives understanding the procedure, its indic ations, potential risks and complications, including but not limited to: allergic reaction, bleeding , perforation or infection, and after all pertinent questions were answered to the patients satisfac tion, the patient/relatives signed witnessed informed consent. Following this, premedication was administered slowly IV push under careful cardiovascular and respi ratory monitoring with pulse oximetry, automatic blood pressure and squad sergeant. Once the sedative effect was achieved the patient was place in the left lateral decubitus, the panen doscope was introduced and advanced under visual control. Careful examination of the upper gastrointestinal tract, both on insertion as well as withdrawal of the instrument disclosed the following findings: ESOPHAGUS: The mucosa of the entire esophagus appears within normal limits. There is no evidence of esophagitis, varices, neoplasm or stricture. No hiatal hernia identified. STOMACH: Upon entrance to the stomach, air was insufflated, the gastric gibson distended normally. There is erythema and edema of the mucosa of a moderate degree. No definitive ulcerations are prese nt. Biopsies were obtained to rule out H. pylori infection. PYLORUS: The pylorus appears patent and within normal limits, with no evidence of gastric outlet ob struction. DUODENUM: The duodenal mucosa was carefully examined in the duodenal bulb as well as the second por tion of the duodenum and appears unremarkable with no evidence of duodenitis, ulcer or neoplasm. The instrument was then withdrawn, the patient tolerated the procedure well and was transfer out of the endoscopy suite awake, and in good condition to continue recovery under observation IMPRESSION: Gastritis, rule out Helicobacter pylori infection, biopsies obtained. RECOMMENDATIONS: The patient will be continued on PPIs. Pathology will be reviewed as soon as arnaldo banegas. Further recommendations will depend on her clinical course. Dictated By: SALINA PINON MS/ARLENE Conf#: [id number] DID#: [id number]
--- NOTE | 2016-09-18 22:58 | CONS ---
Date/Time of Note Date/Time of Note DATE: 09/18/16 TIME: 22:57 Assessment/Plan Assessment/Plan Chief Complaint/Hosp Course IMPRESSION: 1. Patient has acute kidney injury./atn stable better 2. Patient has acute kidney injury possibly due to severe hypotension and sepsis.better 3. vdrf 4.. Patient has leukocytosis, anemia, thrombocytopenia. The patient has Escherichia coli bacteremia, E. coli urinary tract infection. 5 hypernatremia plan iv fluid ck bmp weaning Problems: Consultation Date/Type/Reason Admit Date/Time Sep 09, 2016 at 19:47 Initial Consult Date 09/11/16 Type of Consultation: renal Referring Provider: EMILIANO HENDRICKS 24 HR Interval Summary Constitutional: other (on vent) Exam/Review of Systems Vital Signs Vitals Vital Signs Date Time Temp Pulse Resp B/P Pulse Ox O2 Delivery O2 Flow Rate FiO2 09/18/16 21:50 80 22 99 30 09/18/16 18:00 111/48 Mechanical Ventilator 09/18/16 16:00 99.0 Intake and Output 09/17/16 09/17/16 09/18/16 15:00 23:00 07:00 Intake Total 680 ml 570 ml 220 ml Output Total 480 ml 505 ml 625 ml Balance 200 ml 65 ml -405 ml Exam Respiratory: diminished breath sounds Cardiovascular: regular rate and rhythm Gastrointestinal: bowel sounds, soft Extremities: edema (+) Results Result Diagram: 09/18/16 0525 09/18/16 0525 Results 24 hrs Laboratory Tests Test 09/18/16 01:01 09/18/16 04:47 09/18/16 05:25 09/18/16 08:00 Bedside Glucose 193 190 Activated Partial Thromboplast Time 36.1 H Anion Gap 16 Basophils # 0.0 Basophils % 0.2 Blood Urea Nitrogen 45 H Calcium Level 8.3 L Carbon Dioxide Level 29 Chloride Level 107 Creatinine 2.20 H Eosinophils # 0.1 Eosinophils % 0.5 Glucose Level 164 Hematocrit 28.3 L Hemoglobin 9.2 L INR International Normalized Ratio 1.34 Lymphocytes # 1.1 Lymphocytes % 7.7 L Mean Corpuscular Hemoglobin 28.5 L Mean Corpuscular Hemoglobin Concent 32.5 Mean Corpuscular Volume 87.6 Mean Platelet Volume 12.3 H Monocytes # 1.2 H Monocytes % 8.5 Neutrophils # 11.5 H Neutrophils % 82.1 H Nucleated Red Blood Cells # 0.0 Nucleated Red Blood Cells % 0.0 Platelet Count 137 #L Potassium Level 4.2 Prothrombin Time 16.7 H Prothrombin Time Ratio 1.3 Red Blood Count 3.23 L Red Cell Distribution Width 15.5 H Sodium Level 148 H White Blood Count 13.9 H Arterial Blood HCO3 28.1 H Arterial Blood Base Excess 3.6 H Arterial Blood Oxygen Saturation 97.3 Jarett Test ACCEPTAB Arterial Blood Gas Puncture Site Left Radial Arterial Blood Carboxyhemoglobin 0.3 Arterial Blood Date Drawn 09/18/2016 11:20:46 AM Arterial Blood Methemoglobin 0.5 Arterial Blood pCO2 (Temp correct) 42.2 Arterial Blood pH (Temp corrected) 7.441 Arterial Blood pO2 (Temp corrected) 98.9 H Blood Gas A-a O2 Differential 101.6 H Blood Gas Actual Respiration Rate 21 Blood Gas Low PEEP Setting 5.0 Blood Gas Modality VENT - CPAP Blood Gas Notified Time 09/18/2016 11:30:33 AM Blood Gas Notified Whom T KASSAII Blood Gas Pressure Support 15 Blood Gas Specimen Source Blood arterial Blood Gas Temperature 37.0 FiO2 35.0 Oxyhemoglobin Percent 96.5 Total Hemoglobin 10.9 L Test 09/18/16 08:20 09/18/16 12:06 09/18/16 13:16 09/18/16 16:33 Bedside Glucose 126 131 135 Creatine Kinase < 20 L Creatine Kinase Index Creatinine Kinase MB (Mass) < 0.22 Troponin I 0.019 Test 09/18/16 20:33 Bedside Glucose 143 Medications Medications Current Medications Ondansetron HCl (Zofran Inj) 4 mg Q6H PRN IV NAUSEA AND/OR VOMITING Last administered on 09/10/16 23:03; Admin Dose 4 MG; Start 09/09/16 at 20:00 Nitroglycerin (Nitroglycerin (Sl Tab) 0.4 Mg) 1 tab Q5M PRN SL CHEST PAIN; Start 09/09/16 at 20:00 Acetaminophen (Tylenol Liquid) 650 mg Q6H PRN PO PAIN LEVEL 1-3 OR FEVER; Start 09/09/16 at 20:00 Morphine Sulfate (morphine) 2 mg Q4H PRN IV PAIN LEVEL 7-10 Last administered on 09/18/16 15:19; Admin Dose 2 MG; Start 09/09/16 at 20:00 Lorazepam (Ativan) 1 mg Q2H PRN IV ANXIETY Last administered on 09/17/16 23:16 ; Admin Dose 1 MG; Start 09/09/16 at 20:00 Glucose (Glutose) 15 gm Q15M PRN PO DECREASED GLUCOSE; Start 09/09/16 at 20:30 Glucose (Glutose) 22.5 gm Q15M PRN PO DECREASED GLUCOSE; Start 09/09/16 at 20: 30 Dextrose (D50w Syringe) 25 ml Q15M PRN IV DECREASED GLUCOSE; Start 09/09/16 at 20:30 Dextrose (D50w Syringe) 50 ml Q15M PRN IV DECREASED GLUCOSE; Start 09/09/16 at 20:30 Glucagon (Glucagen) 1 mg Q15M PRN IM DECREASED GLUCOSE; Start 09/09/16 at 20:30 Glucose (Glutose) 15 gm Q15M PRN BUCCAL DECREASED GLUCOSE; Start 09/09/16 at 20 :30 Famotidine 20 mg 20 mg DAILY IV Last administered on 09/18/16 08:22; Admin Dose 20 MG; Start 09/10/16 at 09:00 Phenylephrine HCl 160 mg/Dextrose 500 ml @ 0 mls/hr TITRATE IV Last administered on 09/11/16 11:02; Admin Dose 28.12 MLS/HR; Start 09/10/16 at 19: 30 Norepinephrine/ Dextrose (Levophed/D5W) 250 ml @ 0.46 mls/hr TITRATE IV Last administered on 09/12/16 10:16; Admin Dose 14.05 MLS/HR; Start 09/10/16 at 22: 00 Aspirin 81 mg 81 mg DAILY PO Last administered on 09/18/16 08:22; Admin Dose 81 MG; Start 09/12/16 at 09:00 Ceftriaxone Sodium (Rocephin) 50 ml @ 100 mls/hr Q24H IVPB Last administered on 09/18/16 16:36; Admin Dose 100 MLS/HR; Start 09/12/16 at 16:00 Insulin Aspart NOVOLOG *MODERATE* ALGORI... Q4 SC Last administered on 20:45; Admin Dose 2 UNIT; Start 09/13/16 at 13:00 Ferric Sodium Gluconate Complex 125 mg/Sodium Chloride 110 ml @ 110 mls/hr Q24H IVPB Last administered on 09/18/16 09:44; Admin Dose 110 MLS/HR; Start at 10:00; Stop 09/19/16 at 10:59 Doxycycline Hyclate/Sodium Chloride (Vibramycin/NS) 250 ml @ 250 mls/hr Q12 IVPB Last administered on 09/18/16 20:44; Admin Dose 250 MLS/HR; Start at 15:00 Hydralazine HCl (Apresoline) 10 mg Q4H PRN IV SBP >160 Last administered on 21:15; Admin Dose 10 MG; Start 09/17/16 at 07:00 Docusate Sodium (Colace Liquid Cup) 100 mg Q12 PO Last administered on 20:44; Admin Dose 100 MG; Start 09/17/16 at 09:00 Metoprolol Tartrate (Lopressor) 25 mg BID PO Last administered on 09/18/16 20: 44; Admin Dose 25 MG; Start 09/18/16 at 12:00 QUITA SCHOFIELD MD Sep 18, 2016 22:58
[2016-09-19] VITALS (37 sets, daily range): BP systolic 128–168; BP diastolic 48–123; PULSE 74–109; RESP 16–32
[2016-09-19] MEDS: morphine 2 MG INJ IV PRN ×2 (00:39→13:42)
[2016-09-19] MEDS: INSULIN ASPART [NOVOLOG] 3 ML PEN SC SCH ×6 (00:44→20:51)
[2016-09-19] MEDS: LORAZEPAM 2 MG INJ IV PRN ×2 (01:45→10:04)
[2016-09-19 05:52] LABS: ADD SCAN DIFF NO
[2016-09-19 06:25] LABS: POTASSIUM 4.4 mmol/L (3.5-5.1)
[2016-09-19 06:27] LABS: CREATININE 1.9 mg/dl (0.44-1.00)
[2016-09-19 06:36] LABS: CREATINE KINASE < 20 IU/L (23-200)
[2016-09-19 06:37] LABS: BASOPHILS % 0.2 % (0.0-2.0); CK-MB < 0.22 ng/ml (0.0-2.4); EOSINOPHILS # 0.1 10^3/ul (0.0-0.5); EOSINOPHILS % 1.1 % (0.0-7.0); HEMATOCRIT 26.8 % (37.0-47.0); HEMOGLOBIN 8.5 g/dl (12.0-16.0); LYMPHOCYTES # 1.1 10^3/ul (0.8-2.9); LYMPHOCYTES % 10.3 % (15.0-51.0); MEAN CORPUSCULAR HEMOGLOBIN 28.6 pg (29.0-33.0); MEAN CORPUSCULAR HGB CONC 31.7 g/dl (32.0-37.0); MEAN CORPUSCULAR VOLUME 90.2 fl (82.0-101.0); MEAN PLATELET VOLUME 12.8 fl (7.4-10.4); MONOCYTE # 0.8 10^3/ul (0.3-0.9); MONOCYTES % 7.9 % (0.0-11.0); NEUTROPHIL # 8.4 10^3/ul (1.6-7.5); NEUTROPHILS % 79.9 % (39.0-77.0); PLATELET COUNT 170 10^3/UL (140-415); RED BLOOD COUNT 2.97 10^6/ul (4.20-5.40); RED CELL DISTRIBUTION WIDTH 16.2 % (11.5-14.5); WHITE BLOOD COUNT 10.5 10^3/ul (4.8-10.8)
[2016-09-19 06:40] LABS: TROPONIN-I 0.023 ng/ml (0.00-0.12)
[2016-09-19] MEDS: METOPROLOL 25 MG TAB PO SCH (08:39)
[2016-09-19] MEDS: FAMOTIDINE 20 MG INJ IV SCH (08:39)
[2016-09-19] MEDS: DOXYCYCLINE 100 MG in SOD CHLORIDE 0.9% 250 ML IVPB SCH ×2 (08:41→20:49)
[2016-09-19] MEDS: DOCUSATE SODIUM 10 MG/ML (10ML CUP) PO SCH ×2 (08:41→20:49)
[2016-09-19] MEDS: ASPIRIN 81 MG TAB PO SCH (08:43)
--- NOTE | 2016-09-19 09:51 | PN ---
DATE: 09/19/2016 FOLLOWUP NOTE SUBJECTIVE: Sierra Juarez remains stable this morning. PHYSICAL EXAMINATION: VITAL SIGNS: Temperature 98, pulse is 83, blood pressure 143/70, O2 saturation 96% on 30% FIO2. Babs zuniga is orally intubated. HEENT: Pupils are equal and reactive to light. Dry mucous membranes. CARDIAC EXAM: S1, S2. No added sounds or murmurs. CHEST: Diminished air entry bilaterally. ABDOMEN: Soft, nontender. No guarding or rebound. EXTREMITIES: No cyanosis or clubbing. 1+ edema. NEUROLOGIC: Generalized weakness. LABORATORY: White count 10.5, hemoglobin 8.5, platelets are 170. Chemistry: BUN 42, creatinine 1. 9, INR was 1.34. IMAGING: Chest x-ray was reviewed, shows no significant infiltrates or effusions. IMPRESSION AND PLAN: 1. Hypoxemic respiratory failure. 2. Gram-negative septic shock from Escherichia coli. 3. Acute renal failure. 4. Metabolic acidosis. 5. Severe thrombocytopenia. PLAN: 1. Continue mechanical ventilation. 2. Patient pending Perm-A-Cath. 3. Possible cardiac catheterization per cardiology. 4. Continue DVT and GI prophylaxis. 5. Continue tube feeding as tolerated. Dictated By: PEDRO YORK/ARLENE Conf#: [id number] DID#: [id number]
[2016-09-19] MEDS: SOD FERRIC GLUC COMPLX 125 MG in SOD CHLORIDE 0.9% 100 ML IVPB SCH (10:08)
--- NOTE | 2016-09-19 11:54 | PN ---
Date/Time of Note Date/Time of Note DATE: 09/19/16 TIME: 11:51 Assessment/Plan VTE Prophylaxis VTE Prophylaxis Intervention: contraindicated, SCD's VTE Contraindication Reason: thrombocytopenia Lines/Catheters IV Catheter Type (from Nrs): Central Line Central line still needed: Yes Urinary Cath still in place: Yes Reason Cath still needed: urinary retention Assessment/Plan Chief Complaint/Hosp Course Assessment/Plan: 75 yo female with a past medical history of type II DM, chronic pain who complains of weakness and decreased urinary output for the last several days, found with septic shock. 1. Severe Sepsis with septic shock - 2/2 Ecoli UTI /Bacteremia - pressors off, and on abx. - Continue broad spectrum abx / Appreciate ID consult, f/u rec's - Continue ICU care 2. Acute renal failure r/o CKD- 2/2 to ATN from sepsis - improving now - monitor UO, Cr, f/u renal rec's 3. Type II DM - controlled on SSI - SSI only for now 4. Metabolic / Lactic acidosis 2/2 #1: resolved 5. Acute resp failure now ventilator dependent - on SIMV presently - Continue Vent mgt/appreciate pulm input - wean off as tolerated 6. NSTEMI versus elevated trop - CV monitoring. ECHO = EF 45-50 by echo this admit. - Daily aspirin, may need further cardiac intervention when more medically stable - continue BB per CV team 7. new onset thrombocytopenia: improved now the last 72 hrs (38 -> 70 -> 137 -> 170) - per heme Onc does not appear to be DIC. possibly is sec to sepsis and per per Heme/Onc, pt was also exposed to multiple meds with pos thrombocytopenic effect, including VANCO, ZOSYN, HEPARIN,CEFAZOLIN. HIT antibody negative/ s/p FFP and platelet transfusion. - monitor for now, transfuse if plts < 20,000 per heme/Onc rec's. 8. Severe Iron deficiency: pt also now with + occult test stool. No signs of GI bleeding presently. S/p EGD yesterday with gastritis findings only. - IV iron infusion as needed - f/u GI rec's, monitor PROPHYLAXIS: Pepcid / SCDS CRITICAL CARE TIME: 45 mins Problems: Subjective 24 Hr Interval Summary Free Text/Dictation Still intubated, on SIMV mode. Pt had EGD yesterday, no acute events overnight. Exam/Review of Systems Vital Signs Vitals Vital Signs Date Time Temp Pulse Resp B/P Pulse Ox O2 Delivery O2 Flow Rate FiO2 09/19/16 11:07 80 32 99 30 09/19/16 11:00 156/123 Mechanical Ventilator 09/19/16 08:00 98.9 Intake and Output 09/18/16 09/18/16 09/19/16 15:00 23:00 07:00 Intake Total 360 ml 500 ml 380 ml Output Total 525 ml 270 ml 270 ml Balance -165 ml 230 ml 110 ml Exam Constitutional: frail, intubated Head: normocephalic Eyes: PERRL, icteric ENMT: intubated Respiratory: clear to auscultation, diminished breath sounds Cardiovascular: regular rate and rhythm, No murmurs/extra sounds Gastrointestinal: bowel sounds, distended, other (large periumbilical hernia), soft Genitourinary - Female: other (montoya draining clear urine) Extremities: No edema Neurological: No nl mental status Results Result Diagram: 09/19/16 0448 09/19/16 0448 Results 24 hrs Laboratory Tests Test 09/18/16 12:06 09/18/16 13:16 09/18/16 16:33 09/18/16 20:33 Creatine Kinase < 20 L Creatine Kinase Index Creatinine Kinase MB (Mass) < 0.22 Troponin I 0.019 Bedside Glucose 131 135 143 Test 09/19/16 00:34 09/19/16 04:48 09/19/16 05:23 09/19/16 08:45 Bedside Glucose 191 162 195 Anion Gap 16 Basophils # 0.0 Basophils % 0.2 Blood Urea Nitrogen 42 H Calcium Level 8.0 L Carbon Dioxide Level 28 Chloride Level 110 Creatine Kinase < 20 L Creatine Kinase Index Creatinine 1.90 H Creatinine Kinase MB (Mass) < 0.22 Eosinophils # 0.1 Eosinophils % 1.1 Glucose Level 138 Hematocrit 26.8 L Hemoglobin 8.5 L Lymphocytes # 1.1 Lymphocytes % 10.3 L Mean Corpuscular Hemoglobin 28.6 L Mean Corpuscular Hemoglobin Concent 31.7 L Mean Corpuscular Volume 90.2 Mean Platelet Volume 12.8 H Monocytes # 0.8 Monocytes % 7.9 Neutrophils # 8.4 H Neutrophils % 79.9 H Nucleated Red Blood Cells # 0.0 Nucleated Red Blood Cells % 0.0 Platelet Count 170 # Potassium Level 4.4 Red Blood Count 2.97 L Red Cell Distribution Width 16.2 H Sodium Level 150 H Troponin I 0.023 White Blood Count 10.5 # Medications Medications Current Medications Ondansetron HCl (Zofran Inj) 4 mg Q6H PRN IV NAUSEA AND/OR VOMITING Last administered on 09/10/16 23:03; Admin Dose 4 MG; Start 09/09/16 at 20:00 Nitroglycerin (Nitroglycerin (Sl Tab) 0.4 Mg) 1 tab Q5M PRN SL CHEST PAIN; Start 09/09/16 at 20:00 Acetaminophen (Tylenol Liquid) 650 mg Q6H PRN PO PAIN LEVEL 1-3 OR FEVER; Start 09/09/16 at 20:00 Morphine Sulfate (morphine) 2 mg Q4H PRN IV PAIN LEVEL 7-10 Last administered on 09/19/16 00:39; Admin Dose 2 MG; Start 09/09/16 at 20:00 Lorazepam (Ativan) 1 mg Q2H PRN IV ANXIETY Last administered on 09/19/16 10:04 ; Admin Dose 1 MG; Start 09/09/16 at 20:00 Glucose (Glutose) 15 gm Q15M PRN PO DECREASED GLUCOSE; Start 09/09/16 at 20:30 Glucose (Glutose) 22.5 gm Q15M PRN PO DECREASED GLUCOSE; Start 09/09/16 at 20: 30 Dextrose (D50w Syringe) 25 ml Q15M PRN IV DECREASED GLUCOSE; Start 09/09/16 at 20:30 Dextrose (D50w Syringe) 50 ml Q15M PRN IV DECREASED GLUCOSE; Start 09/09/16 at 20:30 Glucagon (Glucagen) 1 mg Q15M PRN IM DECREASED GLUCOSE; Start 09/09/16 at 20:30 Glucose (Glutose) 15 gm Q15M PRN BUCCAL DECREASED GLUCOSE; Start 09/09/16 at 20 :30 Famotidine 20 mg 20 mg DAILY IV Last administered on 09/19/16 08:39; Admin Dose 20 MG; Start 09/10/16 at 09:00 Phenylephrine HCl 160 mg/Dextrose 500 ml @ 0 mls/hr TITRATE IV Last administered on 09/11/16 11:02; Admin Dose 28.12 MLS/HR; Start 09/10/16 at 19: 30 Norepinephrine/ Dextrose (Levophed/D5W) 250 ml @ 0.46 mls/hr TITRATE IV Last administered on 09/12/16 10:16; Admin Dose 14.05 MLS/HR; Start 09/10/16 at 22: 00 Aspirin 81 mg 81 mg DAILY PO Last administered on 09/19/16 08:43; Admin Dose 81 MG; Start 09/12/16 at 09:00 Ceftriaxone Sodium (Rocephin) 50 ml @ 100 mls/hr Q24H IVPB Last administered on 09/18/16 16:36; Admin Dose 100 MLS/HR; Start 09/12/16 at 16:00 Insulin Aspart NOVOLOG *MODERATE* ALGORI... Q4 SC Last administered on 08:47; Admin Dose 4 UNIT; Start 09/13/16 at 13:00 Doxycycline Hyclate/Sodium Chloride (Vibramycin/NS) 250 ml @ 250 mls/hr Q12 IVPB Last administered on 09/19/16 08:41; Admin Dose 250 MLS/HR; Start at 15:00 Hydralazine HCl (Apresoline) 10 mg Q4H PRN IV SBP >160 Last administered on 21:15; Admin Dose 10 MG; Start 09/17/16 at 07:00 Docusate Sodium (Colace Liquid Cup) 100 mg Q12 PO Last administered on 08:41; Admin Dose 100 MG; Start 09/17/16 at 09:00 Metoprolol Tartrate (Lopressor) 25 mg BID PO Last administered on 09/19/16 08: 39; Admin Dose 25 MG; Start 09/18/16 at 12:00 MARIO ALBERTO CLAUDIO Sep 19, 2016 11:54
--- NOTE | 2016-09-19 11:54 | PN ---
DATE: 09/19/2016 INFECTIOUS DISEASE PROGRESS NOTE SUBJECTIVE: No acute events. The patient is lying comfortably in bed, no fevers. LABORATORY DATA: WBC today 10.5, H and H 8.5 and 26.8, platelets 170, neutrophils 79.9, BUN 42, cre atinine 1.90. ANTIMICROBIALS: The patient is on: 1. Doxycycline 2. Rocephin. INDWELLINGS: Endotracheal tube, NG tube, Alaniz catheter, right chest triple-lumen catheter. PHYSICAL EXAMINATION: GENERAL: This is a fragile, elderly woman who is comfortable on vent. HEENT: Head atraumatic, normocephalic. Sclerae anicteric. Buccal mucosa dry. NECK: Supple, trachea midline. CHEST: Rise symmetrical. Breath sounds clear. HEART: S1, S2. ABDOMEN: Soft, bowel sounds present. EXTREMITIES: Without cyanosis. ASSESSMENT: 1. Resolving sepsis status post shock. 2. Acute respiratory failure. 3. Escherichia coli urinary tract infection with bacteremia. 4. Acute renal failure secondary to acute tubular necrosis, kidney function improving. 5. Resolving thrombocytopenia. 6. Right upper extremity cellulitis. 7. Encephalopathy. PLAN: The patient remains stable, overall slowly improving. White blood cell count tracing down, p latelets going up. We will continue her on current regimen to complete treatment for bacteremia. C ontinue vent management as per pulmonary. Dictated By: CHLOE [facility] [employer] GU[employer] for DELANO DUNNE MD NI/NTS Conf#: [id number] DID#: [id number]
[2016-09-19] MEDS: hydrALAzine 20 MG INJ IV PRN (12:43)
--- NOTE | 2016-09-19 12:44 | CONS ---
Date/Time of Note Date/Time of Note DATE: 09/19/16 TIME: 12:39 Assessment/Plan Assessment/Plan Chief Complaint/Hosp Course IMPRESSION: 1. Positive troponin, assess significance, assess for true acute coronary syndrome.-now downtrending in setting ongoing renal failure 2. Hypotension, shock state. Rule out cardiac etiology-EF 45-50 by echo this admit-improved off of pressors 3. Abnormal electrocardiogram, assess for acute coronary syndrome. 4. Respiratory failure-remains intubated 5. Leukocytosis. 6. Anemia. 7. Thrombocytopenia-slowly improving 8. Renal failure-ongoing 9. Bacteremia with gram negative rods. 10.CHF-systolic and diastolic acute EF 45-50 by echo this admit REcc: -Tele -continue abx's and f/u ca data -ASA as tolerated only given low platelets which are improving -Increase BB to improve BP control and will start low dose hydralazine afterload reduction -Follow volume status closely -Wean vent as tolerated Problems: Consultation Date/Type/Reason Admit Date/Time Sep 09, 2016 at 19:47 Initial Consult Date 09/11/16 Type of Consultation: Cardiology Reason for Consultation positive troponin Referring Provider: EMILIANO HENDRICKS Exam/Review of Systems Vital Signs Vitals Vital Signs Date Time Temp Pulse Resp B/P Pulse Ox O2 Delivery O2 Flow Rate FiO2 09/19/16 11:07 80 32 99 30 09/19/16 11:00 156/123 Mechanical Ventilator 09/19/16 08:00 98.9 Intake and Output 09/18/16 09/18/16 09/19/16 15:00 23:00 07:00 Intake Total 360 ml 500 ml 380 ml Output Total 525 ml 270 ml 270 ml Balance -165 ml 230 ml 110 ml Exam Review of Systems: CONSTITUTIONAL: No fevers, chills. PULMONARY: No sob CARDIOVASCULAR: No chest pain/palpitations GASTROINTESTINAL: No nausea/vomiting. GENITOURINARY: No hematuria/dysuria. MUSCULOSKELETAL: No myagias/arthalgias. PSYCHIATRIC: The patient denies depression. NEUROLOGIC: No weakness Constitutional: other (sedated) Psych: no complaints Head: normocephalic ENMT: intubated Neck: jvd (9 cm water), supple Respiratory: other (upper airway rhoncherous sounds) Cardiovascular: regular rate and rhythm Gastrointestinal: non-tender, soft Musculoskeletal: muscle tone Neurological: other (No focal deficits) Results Result Diagram: 09/19/16 0448 09/19/16 0448 Results 24 hrs Laboratory Tests Test 09/18/16 13:16 09/18/16 16:33 09/18/16 20:33 09/19/16 00:34 Bedside Glucose 131 135 143 191 Test 09/19/16 04:48 09/19/16 05:23 09/19/16 08:45 Anion Gap 16 Basophils # 0.0 Basophils % 0.2 Blood Urea Nitrogen 42 H Calcium Level 8.0 L Carbon Dioxide Level 28 Chloride Level 110 Creatine Kinase < 20 L Creatine Kinase Index Creatinine 1.90 H Creatinine Kinase MB (Mass) < 0.22 Eosinophils # 0.1 Eosinophils % 1.1 Glucose Level 138 Hematocrit 26.8 L Hemoglobin 8.5 L Lymphocytes # 1.1 Lymphocytes % 10.3 L Mean Corpuscular Hemoglobin 28.6 L Mean Corpuscular Hemoglobin Concent 31.7 L Mean Corpuscular Volume 90.2 Mean Platelet Volume 12.8 H Monocytes # 0.8 Monocytes % 7.9 Neutrophils # 8.4 H Neutrophils % 79.9 H Nucleated Red Blood Cells # 0.0 Nucleated Red Blood Cells % 0.0 Platelet Count 170 # Potassium Level 4.4 Red Blood Count 2.97 L Red Cell Distribution Width 16.2 H Sodium Level 150 H Troponin I 0.023 White Blood Count 10.5 # Bedside Glucose 162 195 Medications Medications Current Medications Ondansetron HCl (Zofran Inj) 4 mg Q6H PRN IV NAUSEA AND/OR VOMITING Last administered on 09/10/16 23:03; Admin Dose 4 MG; Start 09/09/16 at 20:00 Nitroglycerin (Nitroglycerin (Sl Tab) 0.4 Mg) 1 tab Q5M PRN SL CHEST PAIN; Start 09/09/16 at 20:00 Acetaminophen (Tylenol Liquid) 650 mg Q6H PRN PO PAIN LEVEL 1-3 OR FEVER; Start 09/09/16 at 20:00 Morphine Sulfate (morphine) 2 mg Q4H PRN IV PAIN LEVEL 7-10 Last administered on 09/19/16 00:39; Admin Dose 2 MG; Start 09/09/16 at 20:00 Lorazepam (Ativan) 1 mg Q2H PRN IV ANXIETY Last administered on 09/19/16 10:04 ; Admin Dose 1 MG; Start 09/09/16 at 20:00 Glucose (Glutose) 15 gm Q15M PRN PO DECREASED GLUCOSE; Start 09/09/16 at 20:30 Glucose (Glutose) 22.5 gm Q15M PRN PO DECREASED GLUCOSE; Start 09/09/16 at 20: 30 Dextrose (D50w Syringe) 25 ml Q15M PRN IV DECREASED GLUCOSE; Start 09/09/16 at 20:30 Dextrose (D50w Syringe) 50 ml Q15M PRN IV DECREASED GLUCOSE; Start 09/09/16 at 20:30 Glucagon (Glucagen) 1 mg Q15M PRN IM DECREASED GLUCOSE; Start 09/09/16 at 20:30 Glucose (Glutose) 15 gm Q15M PRN BUCCAL DECREASED GLUCOSE; Start 09/09/16 at 20 :30 Famotidine 20 mg 20 mg DAILY IV Last administered on 09/19/16 08:39; Admin Dose 20 MG; Start 09/10/16 at 09:00 Phenylephrine HCl 160 mg/Dextrose 500 ml @ 0 mls/hr TITRATE IV Last administered on 09/11/16 11:02; Admin Dose 28.12 MLS/HR; Start 09/10/16 at 19: 30 Norepinephrine/ Dextrose (Levophed/D5W) 250 ml @ 0.46 mls/hr TITRATE IV Last administered on 09/12/16 10:16; Admin Dose 14.05 MLS/HR; Start 09/10/16 at 22: 00 Aspirin 81 mg 81 mg DAILY PO Last administered on 09/19/16 08:43; Admin Dose 81 MG; Start 09/12/16 at 09:00 Ceftriaxone Sodium (Rocephin) 50 ml @ 100 mls/hr Q24H IVPB Last administered on 09/18/16 16:36; Admin Dose 100 MLS/HR; Start 09/12/16 at 16:00 Insulin Aspart NOVOLOG *MODERATE* ALGORI... Q4 SC Last administered on 08:47; Admin Dose 4 UNIT; Start 09/13/16 at 13:00 Doxycycline Hyclate/Sodium Chloride (Vibramycin/NS) 250 ml @ 250 mls/hr Q12 IVPB Last administered on 09/19/16 08:41; Admin Dose 250 MLS/HR; Start at 15:00 Hydralazine HCl (Apresoline) 10 mg Q4H PRN IV SBP >160 Last administered on 21:15; Admin Dose 10 MG; Start 09/17/16 at 07:00 Docusate Sodium (Colace Liquid Cup) 100 mg Q12 PO Last administered on 08:41; Admin Dose 100 MG; Start 09/17/16 at 09:00 Metoprolol Tartrate (Lopressor) 25 mg BID PO Last administered on 09/19/16 08: 39; Admin Dose 25 MG; Start 09/18/16 at 12:00 ALLISON CONTRERAS Sep 19, 2016 12:43
--- NOTE | 2016-09-19 13:42 | CONS ---
Date/Time of Note Date/Time of Note DATE: 09/19/16 TIME: 13:39 Assessment/Plan Assessment/Plan Additional Assessment/Plan Anemia * Stool OB pos * s/p EGD: Gastritis, rule out Helicobacter pylori infection, biopsies obtained. * PPI BID * Review EGD pathology * Monitor Hgb Q8hrs, transfuse 2 units for hgb < 7.5 * Continue iron supplementation SHALOM * Nephrology following Elevated Troponin * Cardiology following Acute Respiratory Failure * On CPAP * Pulmonology following Further recommendations depend on clinical course Patient seen in collaboration with Dr. Pinon Consultation Date/Type/Reason Admit Date/Time Sep 09, 2016 at 19:47 Initial Consult Date 09/13/16 Type of Consultation: Gastroenterology Referring Provider: EMILIANO HENDRICKS 24 HR Interval Summary Free Text/Dictation Hemoglobin stable Intubated and sedated Exam/Review of Systems Vital Signs Vitals Vital Signs Date Time Temp Pulse Resp B/P Pulse Ox O2 Delivery O2 Flow Rate FiO2 09/19/16 13:09 106 32 98 30 09/19/16 13:00 164/56 Mechanical Ventilator 09/19/16 12:00 98.6 Intake and Output 09/18/16 09/18/16 09/19/16 15:00 23:00 07:00 Intake Total 360 ml 500 ml 380 ml Output Total 525 ml 270 ml 270 ml Balance -165 ml 230 ml 110 ml Exam Constitutional: non-verbal Eyes: nl conjunctiva Respiratory: other (intubated CPAP) Cardiovascular: regular rate and rhythm Gastrointestinal: non-tender, soft Musculoskeletal: nl extremities to inspection Extremities: edema Neurological: lethargic Results Result Diagram: 09/19/16 0448 09/19/16 0448 Results 24 hrs Laboratory Tests Test 09/18/16 16:33 09/18/16 20:33 09/19/16 00:34 09/19/16 04:48 Bedside Glucose 135 143 191 Anion Gap 16 Basophils # 0.0 Basophils % 0.2 Blood Urea Nitrogen 42 H Calcium Level 8.0 L Carbon Dioxide Level 28 Chloride Level 110 Creatine Kinase < 20 L Creatine Kinase Index Creatinine 1.90 H Creatinine Kinase MB (Mass) < 0.22 Eosinophils # 0.1 Eosinophils % 1.1 Glucose Level 138 Hematocrit 26.8 L Hemoglobin 8.5 L Lymphocytes # 1.1 Lymphocytes % 10.3 L Mean Corpuscular Hemoglobin 28.6 L Mean Corpuscular Hemoglobin Concent 31.7 L Mean Corpuscular Volume 90.2 Mean Platelet Volume 12.8 H Monocytes # 0.8 Monocytes % 7.9 Neutrophils # 8.4 H Neutrophils % 79.9 H Nucleated Red Blood Cells # 0.0 Nucleated Red Blood Cells % 0.0 Platelet Count 170 # Potassium Level 4.4 Red Blood Count 2.97 L Red Cell Distribution Width 16.2 H Sodium Level 150 H Troponin I 0.023 White Blood Count 10.5 # Test 09/19/16 05:23 09/19/16 08:45 09/19/16 12:49 Bedside Glucose 162 195 137 Medications Medications Current Medications Ondansetron HCl (Zofran Inj) 4 mg Q6H PRN IV NAUSEA AND/OR VOMITING Last administered on 09/10/16 23:03; Admin Dose 4 MG; Start 09/09/16 at 20:00 Nitroglycerin (Nitroglycerin (Sl Tab) 0.4 Mg) 1 tab Q5M PRN SL CHEST PAIN; Start 09/09/16 at 20:00 Acetaminophen (Tylenol Liquid) 650 mg Q6H PRN PO PAIN LEVEL 1-3 OR FEVER; Start 09/09/16 at 20:00 Morphine Sulfate (morphine) 2 mg Q4H PRN IV PAIN LEVEL 7-10 Last administered on 09/19/16 00:39; Admin Dose 2 MG; Start 09/09/16 at 20:00 Lorazepam (Ativan) 1 mg Q2H PRN IV ANXIETY Last administered on 09/19/16 10:04 ; Admin Dose 1 MG; Start 09/09/16 at 20:00 Glucose (Glutose) 15 gm Q15M PRN PO DECREASED GLUCOSE; Start 09/09/16 at 20:30 Glucose (Glutose) 22.5 gm Q15M PRN PO DECREASED GLUCOSE; Start 09/09/16 at 20: 30 Dextrose (D50w Syringe) 25 ml Q15M PRN IV DECREASED GLUCOSE; Start 09/09/16 at 20:30 Dextrose (D50w Syringe) 50 ml Q15M PRN IV DECREASED GLUCOSE; Start 09/09/16 at 20:30 Glucagon (Glucagen) 1 mg Q15M PRN IM DECREASED GLUCOSE; Start 09/09/16 at 20:30 Glucose (Glutose) 15 gm Q15M PRN BUCCAL DECREASED GLUCOSE; Start 09/09/16 at 20 :30 Famotidine (Pepcid Iv) 20 mg DAILY IV Last administered on 09/19/16 08:39; Admin Dose 20 MG; Start 09/10/16 at 09:00 Aspirin 81 mg 81 mg DAILY PO Last administered on 09/19/16 08:43; Admin Dose 81 MG; Start 09/12/16 at 09:00 Ceftriaxone Sodium (Rocephin) 50 ml @ 100 mls/hr Q24H IVPB Last administered on 09/18/16 16:36; Admin Dose 100 MLS/HR; Start 09/12/16 at 16:00 Insulin Aspart NOVOLOG *MODERATE* ALGORI... Q4 SC Last administered on 08:47; Admin Dose 4 UNIT; Start 09/13/16 at 13:00 Doxycycline Hyclate/Sodium Chloride (Vibramycin/NS) 250 ml @ 250 mls/hr Q12 IVPB Last administered on 09/19/16 08:41; Admin Dose 250 MLS/HR; Start at 15:00 Hydralazine HCl (Apresoline) 10 mg Q4H PRN IV SBP >160 Last administered on 09/19 12:43; Admin Dose 10 MG; Start 09/17/16 at 07:00 Docusate Sodium (Colace Liquid Cup) 100 mg Q12 PO Last administered on 08:41; Admin Dose 100 MG; Start 09/17/16 at 09:00 Metoprolol Tartrate (Lopressor) 50 mg BID PO ; Start 09/19/16 at 21:00 Hydralazine HCl (Apresoline) 25 mg Q8 PO ; Start 09/19/16 at 14:00 OSCAR GIMENEZ Sep 19, 2016 13:42
--- NOTE | 2016-09-19 16:18 | CONS ---
Date/Time of Note Date/Time of Note DATE: 09/19/16 TIME: 16:17 Assessment/Plan Assessment/Plan Chief Complaint/Hosp Course IMPRESSION: 1. Patient has acute kidney injury./atn stable better 2. Patient has acute kidney injury possibly due to severe hypotension and sepsis.better 3. vdrf 4.. Patient has leukocytosis, anemia, thrombocytopenia. The patient has Escherichia coli bacteremia, E. coli urinary tract infection. 5 hypernatremia plan iv fluid ck bmp weaning iv fluid Problems: Consultation Date/Type/Reason Admit Date/Time Sep 09, 2016 at 19:47 Initial Consult Date 09/11/16 Type of Consultation: renal Referring Provider: EMILIANO HENDRICKS 24 HR Interval Summary Constitutional: other (on vent) Exam/Review of Systems Vital Signs Vitals Vital Signs Date Time Temp Pulse Resp B/P Pulse Ox O2 Delivery O2 Flow Rate FiO2 09/19/16 15:33 93 18 98 30 09/19/16 13:00 164/56 Mechanical Ventilator 09/19/16 12:00 98.6 Intake and Output 09/18/16 09/18/16 09/19/16 15:00 23:00 07:00 Intake Total 360 ml 500 ml 380 ml Output Total 525 ml 270 ml 270 ml Balance -165 ml 230 ml 110 ml Exam Neck: supple Respiratory: diminished breath sounds Cardiovascular: regular rate and rhythm Gastrointestinal: soft Neurological: lethargic Results Result Diagram: 09/19/16 0448 09/19/16 0448 Results 24 hrs Laboratory Tests Test 09/18/16 16:33 09/18/16 20:33 09/19/16 00:34 09/19/16 04:48 Bedside Glucose 135 143 191 Anion Gap 16 Basophils # 0.0 Basophils % 0.2 Blood Urea Nitrogen 42 H Calcium Level 8.0 L Carbon Dioxide Level 28 Chloride Level 110 Creatine Kinase < 20 L Creatine Kinase Index Creatinine 1.90 H Creatinine Kinase MB (Mass) < 0.22 Eosinophils # 0.1 Eosinophils % 1.1 Glucose Level 138 Hematocrit 26.8 L Hemoglobin 8.5 L Lymphocytes # 1.1 Lymphocytes % 10.3 L Mean Corpuscular Hemoglobin 28.6 L Mean Corpuscular Hemoglobin Concent 31.7 L Mean Corpuscular Volume 90.2 Mean Platelet Volume 12.8 H Monocytes # 0.8 Monocytes % 7.9 Neutrophils # 8.4 H Neutrophils % 79.9 H Nucleated Red Blood Cells # 0.0 Nucleated Red Blood Cells % 0.0 Platelet Count 170 # Potassium Level 4.4 Red Blood Count 2.97 L Red Cell Distribution Width 16.2 H Sodium Level 150 H Troponin I 0.023 White Blood Count 10.5 # Test 09/19/16 05:23 09/19/16 08:45 09/19/16 12:49 Bedside Glucose 162 195 137 Medications Medications Current Medications Ondansetron HCl (Zofran Inj) 4 mg Q6H PRN IV NAUSEA AND/OR VOMITING Last administered on 09/10/16 23:03; Admin Dose 4 MG; Start 09/09/16 at 20:00 Nitroglycerin (Nitroglycerin (Sl Tab) 0.4 Mg) 1 tab Q5M PRN SL CHEST PAIN; Start 09/09/16 at 20:00 Acetaminophen (Tylenol Liquid) 650 mg Q6H PRN PO PAIN LEVEL 1-3 OR FEVER; Start 09/09/16 at 20:00 Morphine Sulfate (morphine) 2 mg Q4H PRN IV PAIN LEVEL 7-10 Last administered on 09/19/16 13:42; Admin Dose 2 MG; Start 09/09/16 at 20:00 Lorazepam (Ativan) 1 mg Q2H PRN IV ANXIETY Last administered on 09/19/16 10:04 ; Admin Dose 1 MG; Start 09/09/16 at 20:00 Glucose (Glutose) 15 gm Q15M PRN PO DECREASED GLUCOSE; Start 09/09/16 at 20:30 Glucose (Glutose) 22.5 gm Q15M PRN PO DECREASED GLUCOSE; Start 09/09/16 at 20: 30 Dextrose (D50w Syringe) 25 ml Q15M PRN IV DECREASED GLUCOSE; Start 09/09/16 at 20:30 Dextrose (D50w Syringe) 50 ml Q15M PRN IV DECREASED GLUCOSE; Start 09/09/16 at 20:30 Glucagon (Glucagen) 1 mg Q15M PRN IM DECREASED GLUCOSE; Start 09/09/16 at 20:30 Glucose (Glutose) 15 gm Q15M PRN BUCCAL DECREASED GLUCOSE; Start 09/09/16 at 20 :30 Famotidine (Pepcid Iv) 20 mg DAILY IV Last administered on 09/19/16 08:39; Admin Dose 20 MG; Start 09/10/16 at 09:00 Aspirin 81 mg 81 mg DAILY PO Last administered on 09/19/16 08:43; Admin Dose 81 MG; Start 09/12/16 at 09:00 Ceftriaxone Sodium (Rocephin) 50 ml @ 100 mls/hr Q24H IVPB Last administered on 09/18/16 16:36; Admin Dose 100 MLS/HR; Start 09/12/16 at 16:00 Insulin Aspart NOVOLOG *MODERATE* ALGORI... Q4 SC Last administered on 08:47; Admin Dose 4 UNIT; Start 09/13/16 at 13:00 Doxycycline Hyclate/Sodium Chloride (Vibramycin/NS) 250 ml @ 250 mls/hr Q12 IVPB Last administered on 09/19/16 08:41; Admin Dose 250 MLS/HR; Start at 15:00 Hydralazine HCl (Apresoline) 10 mg Q4H PRN IV SBP >160 Last administered on 09/19 12:43; Admin Dose 10 MG; Start 09/17/16 at 07:00 Docusate Sodium (Colace Liquid Cup) 100 mg Q12 PO Last administered on 08:41; Admin Dose 100 MG; Start 09/17/16 at 09:00 Metoprolol Tartrate (Lopressor) 50 mg BID PO ; Start 09/19/16 at 21:00 Hydralazine HCl (Apresoline) 25 mg Q8 PO Last administered on 09/19/16 13:39; Admin Dose 25 MG; Start 09/19/16 at 14:00 QUITA SCHOFIELD MD Sep 19, 2016 16:18
[2016-09-19] MEDS: CEFTRIAXONE 1 GM/50 ML (PMX) 50 ML IVPB SCH (16:21)
[2016-09-19] MEDS ORDERED: SOD CHLORIDE 0.45% 1,000 ML IV SCH (16:30)
--- NOTE | 2016-09-19 18:35 | CONS ---
Date/Time of Note Date/Time of Note DATE: 09/19/16 TIME: 18:34 Assessment/Plan Assessment/Plan Chief Complaint/Hosp Course IMPRESSION: thrombocytopenia in pt with severe sepsis, exposed to multiple meds with pos thrombocytopenic effect, including VANCO, ZOSYN, HEPARIN,CEFAZOLIN NO EVIDENCE DIC s/p FFP yesterday and platelet transfusion today cont to monitor blood count closely transfuse if platelet count less than [id number], considering severe sepsis HIPA- NEG PLATELET COUNT IMPROVING Leukocytosis. REACTIVE MONITOR Anemia. C/W ACD MONITOR BLOOD COUNT CLOSELY Severe Sepsis with septic shock / Ecoli UTI /Bacteremia Acute renal failure - / to ATN from sepsis Type II DM - Hyperglycemic on D5W Metabolic / Lactic acidosis / #1 Acute resp failure now ventilator dependent NSTEMI versus demand ischemia Positive troponin, assess significance, assess for true acute coronary syndrome. Metabolic acidosis respiratory failure, vent dependent incomplete database Thank you for allowing me to take part in the care of this patient. I will continue to follow along very closely with you. Further recommendations will be made as the patient progresses through her inpatient hospital clinical course. Problems: Consultation Date/Type/Reason Admit Date/Time Sep 09, 2016 at 19:47 Initial Consult Date 09/13/16 Type of Consultation: HEMEON Referring Provider: EMILIANO HENDRICKS 24 HR Interval Summary Free Text/Dictation ALL NOTED PLATELET COUNT IS IMPROVING NO BLEEDING Exam/Review of Systems Vital Signs Vitals Vital Signs Date Time Temp Pulse Resp B/P Pulse Ox O2 Delivery O2 Flow Rate FiO2 09/19/16 18:00 92 17 140/57 97 Mechanical Ventilator 09/19/16 17:41 30 09/19/16 16:00 99.0 Intake and Output 09/18/16 09/18/16 09/19/16 15:00 23:00 07:00 Intake Total 360 ml 500 ml 380 ml Output Total 525 ml 270 ml 270 ml Balance -165 ml 230 ml 110 ml Exam General: WN/WD/NAD, AOx 0, seadted HEENT: Unicetric/atraumatic/EOMI (does not follow commands) NECK: JVD elevated, no thyromegaly, intub Lymph: no lymphadenopathy HEART: regular with no S3, II/ systolic murmur at apex LUNGS: Coarse sounds ABD: soft, NT, ND, +BS : Intact Neuro: non focal SKIN: chronic changes EXT: trace edema Results Result Diagram: 09/19/16 0448 09/19/16 0448 Results 24 hrs Laboratory Tests Test 09/18/16 20:33 09/19/16 00:34 09/19/16 04:48 09/19/16 05:23 Bedside Glucose 143 191 162 Anion Gap 16 Basophils # 0.0 Basophils % 0.2 Blood Urea Nitrogen 42 H Calcium Level 8.0 L Carbon Dioxide Level 28 Chloride Level 110 Creatine Kinase < 20 L Creatine Kinase Index Creatinine 1.90 H Creatinine Kinase MB (Mass) < 0.22 Eosinophils # 0.1 Eosinophils % 1.1 Glucose Level 138 Hematocrit 26.8 L Hemoglobin 8.5 L Lymphocytes # 1.1 Lymphocytes % 10.3 L Mean Corpuscular Hemoglobin 28.6 L Mean Corpuscular Hemoglobin Concent 31.7 L Mean Corpuscular Volume 90.2 Mean Platelet Volume 12.8 H Monocytes # 0.8 Monocytes % 7.9 Neutrophils # 8.4 H Neutrophils % 79.9 H Nucleated Red Blood Cells # 0.0 Nucleated Red Blood Cells % 0.0 Platelet Count 170 # Potassium Level 4.4 Red Blood Count 2.97 L Red Cell Distribution Width 16.2 H Sodium Level 150 H Troponin I 0.023 White Blood Count 10.5 # Test 09/19/16 08:45 09/19/16 12:49 09/19/16 17:46 Bedside Glucose 195 137 200 Medications Medications Current Medications Ondansetron HCl (Zofran Inj) 4 mg Q6H PRN IV NAUSEA AND/OR VOMITING Last administered on 09/10/16 23:03; Admin Dose 4 MG; Start 09/09/16 at 20:00 Nitroglycerin (Nitroglycerin (Sl Tab) 0.4 Mg) 1 tab Q5M PRN SL CHEST PAIN; Start 09/09/16 at 20:00 Acetaminophen (Tylenol Liquid) 650 mg Q6H PRN PO PAIN LEVEL 1-3 OR FEVER; Start 09/09/16 at 20:00 Morphine Sulfate (morphine) 2 mg Q4H PRN IV PAIN LEVEL 7-10 Last administered on 09/19/16 13:42; Admin Dose 2 MG; Start 09/09/16 at 20:00 Lorazepam (Ativan) 1 mg Q2H PRN IV ANXIETY Last administered on 09/19/16 10:04 ; Admin Dose 1 MG; Start 09/09/16 at 20:00 Glucose (Glutose) 15 gm Q15M PRN PO DECREASED GLUCOSE; Start 09/09/16 at 20:30 Glucose (Glutose) 22.5 gm Q15M PRN PO DECREASED GLUCOSE; Start 09/09/16 at 20: 30 Dextrose (D50w Syringe) 25 ml Q15M PRN IV DECREASED GLUCOSE; Start 09/09/16 at 20:30 Dextrose (D50w Syringe) 50 ml Q15M PRN IV DECREASED GLUCOSE; Start 09/09/16 at 20:30 Glucagon (Glucagen) 1 mg Q15M PRN IM DECREASED GLUCOSE; Start 09/09/16 at 20:30 Glucose (Glutose) 15 gm Q15M PRN BUCCAL DECREASED GLUCOSE; Start 09/09/16 at 20 :30 Famotidine (Pepcid Iv) 20 mg DAILY IV Last administered on 09/19/16 08:39; Admin Dose 20 MG; Start 09/10/16 at 09:00 Aspirin 81 mg 81 mg DAILY PO Last administered on 09/19/16 08:43; Admin Dose 81 MG; Start 09/12/16 at 09:00 Ceftriaxone Sodium (Rocephin) 50 ml @ 100 mls/hr Q24H IVPB Last administered on 09/19/16 16:21; Admin Dose 100 MLS/HR; Start 09/12/16 at 16:00 Insulin Aspart NOVOLOG *MODERATE* ALGORI... Q4 SC Last administered on 17:48; Admin Dose 4 UNIT; Start 09/13/16 at 13:00 Doxycycline Hyclate/Sodium Chloride (Vibramycin/NS) 250 ml @ 250 mls/hr Q12 IVPB Last administered on 09/19/16 08:41; Admin Dose 250 MLS/HR; Start at 15:00 Hydralazine HCl (Apresoline) 10 mg Q4H PRN IV SBP >160 Last administered on 09/19 12:43; Admin Dose 10 MG; Start 09/17/16 at 07:00 Docusate Sodium (Colace Liquid Cup) 100 mg Q12 PO Last administered on 08:41; Admin Dose 100 MG; Start 09/17/16 at 09:00 Metoprolol Tartrate (Lopressor) 50 mg BID PO ; Start 09/19/16 at 21:00 Hydralazine HCl 25 mg 25 mg Q8 PO Last administered on 09/19/16 13:39; Admin Dose 25 MG; Start 09/19/16 at 14:00 Sodium Chloride (1/2 NS) 1,000 ml @ 40 mls/hr Q24H IV Last administered on 09/19 16:22; Admin Dose 40 MLS/HR; Start 09/19/16 at 16:30 JEFF FRANK MD Sep 19, 2016 18:34
[2016-09-19] MEDS: METOPROLOL 50 MG TAB PO SCH (20:49)
[2016-09-20] VITALS (36 sets, daily range): BP systolic 110–187; BP diastolic 50–117; PULSE 60–125; RESP 17–34
[2016-09-20] MEDS: INSULIN ASPART [NOVOLOG] 3 ML PEN SC SCH ×6 (01:05→20:16)
[2016-09-20 04:39] LABS: ADD SCAN DIFF NO
[2016-09-20 04:45] LABS: BASOPHILS % 0.2 % (0.0-2.0); EOSINOPHILS # 0.2 10^3/ul (0.0-0.5); EOSINOPHILS % 2.1 % (0.0-7.0); HEMATOCRIT 25.2 % (37.0-47.0); HEMOGLOBIN 7.9 g/dl (12.0-16.0); LYMPHOCYTES # 1.2 10^3/ul (0.8-2.9); LYMPHOCYTES % 11.9 % (15.0-51.0); MEAN CORPUSCULAR HEMOGLOBIN 28.1 pg (29.0-33.0); MEAN CORPUSCULAR HGB CONC 31.3 g/dl (32.0-37.0); MEAN CORPUSCULAR VOLUME 89.7 fl (82.0-101.0); MEAN PLATELET VOLUME 13.2 fl (7.4-10.4); MONOCYTE # 1.1 10^3/ul (0.3-0.9); MONOCYTES % 10.3 % (0.0-11.0); NEUTROPHIL # 7.8 10^3/ul (1.6-7.5); NEUTROPHILS % 74.9 % (39.0-77.0); PLATELET COUNT 185 10^3/UL (140-415); RED BLOOD COUNT 2.81 10^6/ul (4.20-5.40); RED CELL DISTRIBUTION WIDTH 16.6 % (11.5-14.5); WHITE BLOOD COUNT 10.4 10^3/ul (4.8-10.8)
[2016-09-20 05:07] LABS: CREATININE 1.8 mg/dl (0.44-1.00)
[2016-09-20 05:08] LABS: CALCIUM 8.3 mg/dl (8.4-10.2)
[2016-09-20] MEDS: HALOPERIDOL 5 MG INJ IM PRN (05:31)
[2016-09-20 07:33] LABS: AADO2 Arterial 184.8 mmHg (7.0-24.0); Allen Test ACCEPTAB; Arterial Base Excess 1.7 mmol/L (-3.0-3); Arterial COHb 0.3 % (0.0-3.0); Arterial Fraction of Oxyhgb 98.5 % (93.0-99.0); Arterial HCO3 29.6 mmol/L (22.0-26.0); Arterial MetHb 0.5 % (0.0-1.5); Arterial Total Hemglobin 10.7 g/dl (12.0-18.0); MODE MASK - NRB
[2016-09-20] MEDS: morphine 2 MG INJ IV PRN (07:43)
[2016-09-20] MEDS: ASPIRIN 81 MG TAB PO SCH (08:44)
[2016-09-20] MEDS: METOPROLOL 50 MG TAB PO SCH ×2 (08:44→20:09)
[2016-09-20] MEDS: FAMOTIDINE 20 MG INJ IV SCH (08:44)
[2016-09-20] MEDS: DOCUSATE SODIUM 10 MG/ML (10ML CUP) PO SCH ×2 (08:44→20:08)
[2016-09-20] MEDS: DOXYCYCLINE 100 MG in SOD CHLORIDE 0.9% 250 ML IVPB SCH ×2 (08:45→20:09)
[2016-09-20] MEDS: INSULIN GLARGINE [LANtus] 3 ML PEN SC SCH (08:48)
--- NOTE | 2016-09-20 09:15 | RADRPT ---
PROCEDURE: XR Chest. CLINICAL INDICATION: Pneumonia and congestive heart failure. TECHNIQUE: Chest x-ray, single view. COMPARISON: 09/15/2016. FINDINGS: The cardiac silhouette is slightly magnified and unchanged in size and configuration. Aortic arch a therosclerotic calcification is present. The endotracheal tube terminates within the mid trachea. A right internal jugular central venous catheter terminates within the upper SVC. An enteric tube e xtends below the diaphragm extending into the stomach. Mild hyperinflation is present. Hazy opacif ication of the lung bases is observed and slightly improved. There is no evidence of pneumothorax o r pneumomediastinum. Skeletal structures and upper abdomen are unremarkable. IMPRESSION: Satisfactory positioning of support lines and tubes. Mild hyperinflation. Mild hazy opacification of the lung bases, slightly improved. RPTAT: DD .Suze Schofield MD, Date Time Electronically viewed and signed by .Suze Schofield MD, on 09/20/2016 09:15 .T/
[2016-09-20 09:56] LABS: AADO2 Arterial 83.5 mmHg (7.0-24.0); Allen Test ACCEPTAB; Arterial Base Excess 1.5 mmol/L (-3.0-3); Arterial COHb 0.3 % (0.0-3.0); Arterial Fraction of Oxyhgb 98.1 % (93.0-99.0); Arterial HCO3 27.7 mmol/L (22.0-26.0); Arterial MetHb 0.6 % (0.0-1.5); Arterial Total Hemglobin 9.3 g/dl (12.0-18.0); Blood Gas IEPAP 15/5; Blood Gas PS 10; MODE MASK - BIPAP
--- NOTE | 2016-09-20 10:27 | PN ---
DATE: 09/20/2016 SUBJECTIVE: Patient Larry remains somewhat stable. She self-extubated earlier this morning, was found to have hypercapnia and is now on noninvasive positive-pressure ventilation. She remains suad usable at present. PHYSICAL EXAMINATION: VITAL SIGNS: Temperature 98, pulse is 100, blood pressure 180/80, O2 saturation 96% on FIO2 of 60%, arousable on BiPAP. HEENT: Dry mucous membranes. Pupils equal and reactive to light. CARDIAC: S1, S2, no added sounds or murmurs. CHEST: Diminished air entry bilaterally. ABDOMEN: Soft, nontender. No guarding or rebound. EXTREMITIES: No cyanosis, clubbing, edema. NEUROLOGIC: Grossly intact. No focal deficits. LABORATORY DATA: White count 10.4, hemoglobin 7.9, BUN 45, creatinine 1.8. ABG: pH of 7.27, pCO2 of 64, pO2 of 463. IMAGING: Chest x-ray was reviewed, shows mild opacification lung bases, clinically improved. IMPRESSION AND PLAN: 1. Hypoxemic and hypercapnic respiratory failure worse following self-extubation. 2. Acute on chronic kidney injury. 3. Status post anemia with endoscopy showing gastritis 4. Resolving bacteremia. PLAN: 1. Continue noninvasive positive-pressure ventilation. The patient may require reintubation if rep eat arterial blood gas shows worsening numbers. 2. Continue renal recommendations. 3. Antibiotics. 4. Aspiration precautions. 5. DVT and GI prophylaxis. Dictated By: PEDRO YORK/ARLENE Conf#: [id number] DID#: [id number]
--- NOTE | 2016-09-20 10:46 | PN ---
DATE: 09/20/2016 SUBJECTIVE: Patient is lying comfortably in bed, no fevers. Pulse 72, respirations 34, blood press ure 144/50, saturation 98 on 100 FIO2. LABORATORY: WBC 10.4, H and H 7.9 and 25.2, platelets 185, no shift, no bands. BUN 45, creatinine 1.80. INDWELLINGS: Endotracheal tube, NG tube, Alaniz catheter, right IJ triple-lumen catheter. ANTIMICROBIALS: 1. Rocephin. 2. Doxycycline. PHYSICAL EXAMINATION: GENERAL: This is a fragile, elderly woman who is in no distress. HEENT: Head atraumatic, normocephalic. Sclerae anicteric. Buccal mucosa dry. NECK: Supple, trachea midline. CHEST: Rise symmetrical. Breath sounds diminished at the bases. HEART: S1, S2. ABDOMEN: Soft, bowel tones present. EXTREMITIES: With trace edema. ASSESSMENT: 1. Resolving sepsis status post shock. 2. Escherichia coli UTI with bacteremia. 3. Pneumonia. 4. Right upper extremity cellulitis. 5. Acute renal failure secondary to acute tubular necrosis. 6. Encephalopathy. PLAN: The patient is doing better in terms of her sepsis, white blood cell count tracing down. She is afebrile. She is being seen by multiple consultants. She is completing antibiotics for bactere earl. Continue weaning trials as per pulmonary. Dictated By: CHLOE MONROY PROFESSOR OF BUSINESS ADMINISTRATION for DELANO RODRIGUEZ/ARLENE Conf#: [id number] DID#: [id number]
--- NOTE | 2016-09-20 11:42 | CONS ---
Date/Time of Note Date/Time of Note DATE: 09/20/16 TIME: 11:38 Assessment/Plan Assessment/Plan Chief Complaint/Hosp Course IMPRESSION: 1. Positive troponin, assess significance, assess for true acute coronary syndrome.-now downtrending in setting ongoing renal failure 2. Hypotension, shock state. Rule out cardiac etiology-EF 45-50 by echo this admit-improved off of pressors 3. Abnormal electrocardiogram, assess for acute coronary syndrome. 4. Respiratory failure-remains intubated 5. Leukocytosis. 6. Anemia. 7. Thrombocytopenia-slowly improving 8. Renal failure-ongoing 9. Bacteremia with gram negative rods. 10.CHF-systolic and diastolic acute EF 45-50 by echo this admit REcc: -Tele -continue abx's and f/u ca data -ASA as tolerated only given low platelets which are improving -Increase BB to improve BP control and will start low dose hydralazine afterload reduction -Follow volume status closely and will give dose of lasix and follow volume status closely -Wean vent as tolerated Problems: Consultation Date/Type/Reason Admit Date/Time Sep 09, 2016 at 19:47 Initial Consult Date 09/11/16 Type of Consultation: Cardiology Reason for Consultation Positive troponin Referring Provider: EMILIANO HENDRICKS Exam/Review of Systems Vital Signs Vitals Vital Signs Date Time Temp Pulse Resp B/P Pulse Ox O2 Delivery O2 Flow Rate FiO2 09/20/16 10:13 30 09/20/16 09:00 72 100 09/20/16 07:00 34 185/85 Mechanical Ventilator 09/20/16 04:00 98.8 Intake and Output 09/19/16 09/19/16 09/20/16 15:00 23:00 07:00 Intake Total 850 ml 1070 ml 700 ml Output Total 470 ml 370 ml 305 ml Balance 380 ml 700 ml 395 ml Exam Review of Systems: CONSTITUTIONAL: No fevers, chills. PULMONARY: resp failure on bipap CARDIOVASCULAR: No chest pain/palpitations GASTROINTESTINAL: No nausea/vomiting. GENITOURINARY: No hematuria/dysuria. MUSCULOSKELETAL: No myagias/arthalgias. PSYCHIATRIC: The patient denies depression. NEUROLOGIC: No weakness Constitutional: other (sleeping) ENMT: other (BIPAP in place) Neck: jvd (9 cm water), supple Respiratory: other (upper airway rhonchi) Cardiovascular: regular rate and rhythm Gastrointestinal: non-tender, soft Musculoskeletal: muscle tone (normal) Extremities: edema (trace/B) Results Result Diagram: 09/20/16 0330 09/20/16 0330 Results 24 hrs Laboratory Tests Test 09/19/16 12:49 09/19/16 17:46 09/19/16 20:48 09/20/16 01:03 Bedside Glucose 137 200 165 198 Test 09/20/16 03:30 09/20/16 04:46 09/20/16 07:04 09/20/16 08:46 Anion Gap 14 Basophils # 0.0 Basophils % 0.2 Blood Urea Nitrogen 45 H Calcium Level 8.3 L Carbon Dioxide Level 30 Chloride Level 111 H Creatinine 1.80 H Eosinophils # 0.2 Eosinophils % 2.1 Glucose Level 175 Hematocrit 25.2 L Hemoglobin 7.9 L Lymphocytes # 1.2 Lymphocytes % 11.9 L Mean Corpuscular Hemoglobin 28.1 L Mean Corpuscular Hemoglobin Concent 31.3 L Mean Corpuscular Volume 89.7 Mean Platelet Volume 13.2 H Monocytes # 1.1 H Monocytes % 10.3 Neutrophils # 7.8 H Neutrophils % 74.9 Nucleated Red Blood Cells # 0.0 Nucleated Red Blood Cells % 0.0 Platelet Count 185 Potassium Level 4.0 Red Blood Count 2.81 L Red Cell Distribution Width 16.6 H Sodium Level 151 H White Blood Count 10.4 Bedside Glucose 174 188 Arterial Blood HCO3 29.6 H Arterial Blood Base Excess 1.7 Arterial Blood Oxygen Saturation 99.3 Jartet Test ACCEPTAB Arterial Blood Gas Puncture Site Right Radial Arterial Blood Carboxyhemoglobin 0.3 Arterial Blood Date Drawn 09/20/2016 7:19:05 AM Arterial Blood Methemoglobin 0.5 Arterial Blood pCO2 (Temp correct) 64.5 H Arterial Blood pH (Temp corrected) 7.279 *L Arterial Blood pO2 (Temp corrected) 463.7 H Blood Gas A-a O2 Differential 184.8 H Blood Gas Critical Value Read Back A PHILIPPE BURNS Blood Gas Modality MASK - NRB Blood Gas Notified Time 09/20/2016 7:33:34 AM Blood Gas Notified Whom TM Blood Gas Specimen Source Blood arterial Blood Gas Temperature 37.0 FiO2 100.0 Oxyhemoglobin Percent 98.5 Total Hemoglobin 10.7 L Test 09/20/16 10:00 Arterial Blood HCO3 27.7 H Arterial Blood Base Excess 1.5 Arterial Blood Oxygen Saturation 99.0 Jarett Test ACCEPTAB Arterial Blood Gas Puncture Site Right Radial Arterial Blood Carboxyhemoglobin 0.3 Arterial Blood Date Drawn 09/20/2016 9:46:44 AM Arterial Blood Methemoglobin 0.6 Arterial Blood pCO2 (Temp correct) 51.8 H Arterial Blood pH (Temp corrected) 7.346 L Arterial Blood pO2 (Temp corrected) 287.3 H Blood Gas A-a O2 Differential 83.5 H Blood Gas Actual Respiration Rate 20 Blood Gas IPAP/EPAP Ratio 15/5 Blood Gas Modality MASK - BIPAP Blood Gas Notified Time 09/20/2016 9:56:32 AM Blood Gas Notified Whom TM Blood Gas Pressure Support 10 Blood Gas Respiration Rate 14.0 Blood Gas Specimen Source Blood arterial Blood Gas Temperature 37.0 FiO2 60.0 Oxyhemoglobin Percent 98.1 Total Hemoglobin 9.3 L Medications Medications Current Medications Ondansetron HCl (Zofran Inj) 4 mg Q6H PRN IV NAUSEA AND/OR VOMITING Last administered on 09/10/16 23:03; Admin Dose 4 MG; Start 09/09/16 at 20:00 Nitroglycerin (Nitroglycerin (Sl Tab) 0.4 Mg) 1 tab Q5M PRN SL CHEST PAIN; Start 09/09/16 at 20:00 Acetaminophen (Tylenol Liquid) 650 mg Q6H PRN PO PAIN LEVEL 1-3 OR FEVER; Start 09/09/16 at 20:00 Morphine Sulfate (morphine) 2 mg Q4H PRN IV PAIN LEVEL 7-10 Last administered on 09/20/16 07:43; Admin Dose 2 MG; Start 09/09/16 at 20:00 Lorazepam (Ativan) 1 mg Q2H PRN IV ANXIETY Last administered on 09/19/16 10:04 ; Admin Dose 1 MG; Start 09/09/16 at 20:00 Glucose (Glutose) 15 gm Q15M PRN PO DECREASED GLUCOSE; Start 09/09/16 at 20:30 Glucose (Glutose) 22.5 gm Q15M PRN PO DECREASED GLUCOSE; Start 09/09/16 at 20: 30 Dextrose (D50w Syringe) 25 ml Q15M PRN IV DECREASED GLUCOSE; Start 09/09/16 at 20:30 Dextrose (D50w Syringe) 50 ml Q15M PRN IV DECREASED GLUCOSE; Start 09/09/16 at 20:30 Glucagon (Glucagen) 1 mg Q15M PRN IM DECREASED GLUCOSE; Start 09/09/16 at 20:30 Glucose (Glutose) 15 gm Q15M PRN BUCCAL DECREASED GLUCOSE; Start 09/09/16 at 20 :30 Famotidine (Pepcid Iv) 20 mg DAILY IV Last administered on 09/20/16 08:44; Admin Dose 20 MG; Start 09/10/16 at 09:00 Aspirin 81 mg 81 mg DAILY PO Last administered on 09/20/16 08:44; Admin Dose 81 MG; Start 09/12/16 at 09:00 Ceftriaxone Sodium (Rocephin) 50 ml @ 100 mls/hr Q24H IVPB Last administered on 09/19/16 16:21; Admin Dose 100 MLS/HR; Start 09/12/16 at 16:00 Insulin Aspart NOVOLOG *MODERATE* ALGORI... Q4 SC Last administered on 08:50; Admin Dose 4 UNIT; Start 09/13/16 at 13:00 Doxycycline Hyclate/Sodium Chloride (Vibramycin/NS) 250 ml @ 250 mls/hr Q12 IVPB Last administered on 09/20/16 08:45; Admin Dose 250 MLS/HR; Start at 15:00 Hydralazine HCl (Apresoline) 10 mg Q4H PRN IV SBP >160 Last administered on 09/19 12:43; Admin Dose 10 MG; Start 09/17/16 at 07:00 Docusate Sodium (Colace Liquid Cup) 100 mg Q12 PO Last administered on 08:44; Admin Dose 100 MG; Start 09/17/16 at 09:00 Metoprolol Tartrate (Lopressor) 50 mg BID PO Last administered on 09/20/16 08: 44; Admin Dose 50 MG; Start 09/19/16 at 21:00 Hydralazine HCl 25 mg 25 mg Q8 PO Last administered on 09/20/16 06:21; Admin Dose 25 MG; Start 09/19/16 at 14:00 Sodium Chloride (1/2 NS) 1,000 ml @ 40 mls/hr Q24H IV Last administered on 09/19 16:22; Admin Dose 40 MLS/HR; Start 09/19/16 at 16:30 Haloperidol (Haldol) 2 mg Q4H PRN IM AGITATION Last administered on 09/20/16 05 :31; Admin Dose 2 MG; Start 09/20/16 at 05:30 Insulin Glargine (Lantus) 10 unit QAM SC Last administered on 09/20/16 08:48; Admin Dose 10 UNIT; Start 09/20/16 at 09:00 ALLISON CONTRERAS Sep 20, 2016 11:42
[2016-09-20] MEDS ORDERED: FUROSEMIDE 20 MG INJ IV ONE (12:00)
--- NOTE | 2016-09-20 13:39 | RADRPT ---
Vent Rate: 92 bpm RR Interval: 0 msec CA Interval: 118 msec QRS Duration: 84 msec QT Interval: 356 msec QTC Interval: 440 msec P-R-T [place]: 79 - 80 - 78 degrees Normal sinus rhythm Normal ECG Electronically Signed By: Julio Hansen [id number]
[2016-09-20] MEDS: DEXTROSE 50% 50 ML SYRINGE IV PRN (13:44)
--- NOTE | 2016-09-20 13:59 | PN ---
Date/Time of Note Date/Time of Note DATE: 09/20/16 TIME: 13:53 Assessment/Plan VTE Prophylaxis VTE Prophylaxis Intervention: contraindicated, SCD's VTE Contraindication Reason: thrombocytopenia Lines/Catheters IV Catheter Type (from Nrs): Central Line Central line still needed: Yes Urinary Cath still in place: Yes Reason Cath still needed: urinary retention Assessment/Plan Chief Complaint/Hosp Course Assessment/Plan: 75 yo female with a past medical history of type II DM, chronic pain who complains of weakness and decreased urinary output for the last several days, found with septic shock. 1. Severe Sepsis with septic shock - 2/2 Ecoli UTI /Bacteremia - pressors off, and on abx. - Continue broad spectrum abx / Appreciate ID consult, f/u rec's - Continue ICU care for now 2. Acute renal failure r/o CKD- 2/2 to ATN from sepsis - improving now - monitor UO, Cr, f/u renal rec's 3. Type II DM - controlled on SSI - SSI only for now 4. Metabolic / Lactic acidosis 2/2 #1: resolved 5. Acute resp failure now ventilator dependent - self extubated herself today - on BiPAP now - Continue Vent mgt per pulm 6. NSTEMI versus elevated trop - CV monitoring. ECHO = EF 45-50 by echo this admit. - Daily aspirin, may need further cardiac intervention when more medically stable - continue BB per CV team 7. new onset thrombocytopenia: improved now the last 72 hrs (38 -> 70 -> 137 -> 170 ->185) - per heme Onc does not appear to be DIC. possibly is sec to sepsis and per per Heme/Onc, pt was also exposed to multiple meds with pos thrombocytopenic effect, including VANCO, ZOSYN, HEPARIN,CEFAZOLIN. HIT antibody negative/ s/p FFP and platelet transfusion. - monitor for now, transfuse if plts < 20,000 per heme/Onc rec's. 8. Severe Iron deficiency: + occult test stool. No signs of GI bleeding presently. S/p EGD 2 days ago with gastritis findings only. H/H lower today - consider pRBC transfusion today. - f/u GI rec's, monitor PROPHYLAXIS: Pepcid / SCDS CRITICAL CARE TIME: 45 mins Problems: Subjective 24 Hr Interval Summary Free Text/Dictation Pt self extubated herself today, presently on BiPAP. Exam/Review of Systems Vital Signs Vitals Vital Signs Date Time Temp Pulse Resp B/P Pulse Ox O2 Delivery O2 Flow Rate FiO2 09/20/16 12:00 98.5 64 17 110/52 100 Mechanical Ventilator 09/20/16 11:16 30 Intake and Output 09/19/16 09/19/16 09/20/16 15:00 23:00 07:00 Intake Total 850 ml 1070 ml 700 ml Output Total 470 ml 370 ml 305 ml Balance 380 ml 700 ml 395 ml Exam Constitutional: frail, on BiPAP presently Head: normocephalic Eyes: PERRL, icteric ENMT: intubated Respiratory: clear to auscultation, diminished breath sounds Cardiovascular: regular rate and rhythm, No murmurs/extra sounds Gastrointestinal: bowel sounds, distended, other (large periumbilical hernia), soft Genitourinary - Female: other (montoya draining clear urine) Extremities: No edema Neurological: No nl mental status Results Result Diagram: 09/20/16 0330 09/20/16 0330 Results 24 hrs Laboratory Tests Test 09/19/16 17:46 09/19/16 20:48 09/20/16 01:03 09/20/16 03:30 Bedside Glucose 200 165 198 Anion Gap 14 Basophils # 0.0 Basophils % 0.2 Blood Urea Nitrogen 45 H Calcium Level 8.3 L Carbon Dioxide Level 30 Chloride Level 111 H Creatinine 1.80 H Eosinophils # 0.2 Eosinophils % 2.1 Glucose Level 175 Hematocrit 25.2 L Hemoglobin 7.9 L Lymphocytes # 1.2 Lymphocytes % 11.9 L Mean Corpuscular Hemoglobin 28.1 L Mean Corpuscular Hemoglobin Concent 31.3 L Mean Corpuscular Volume 89.7 Mean Platelet Volume 13.2 H Monocytes # 1.1 H Monocytes % 10.3 Neutrophils # 7.8 H Neutrophils % 74.9 Nucleated Red Blood Cells # 0.0 Nucleated Red Blood Cells % 0.0 Platelet Count 185 Potassium Level 4.0 Red Blood Count 2.81 L Red Cell Distribution Width 16.6 H Sodium Level 151 H White Blood Count 10.4 Test 09/20/16 04:46 09/20/16 07:04 09/20/16 08:46 09/20/16 10:00 Bedside Glucose 174 188 Arterial Blood HCO3 29.6 H 27.7 H Arterial Blood Base Excess 1.7 1.5 Arterial Blood Oxygen Saturation 99.3 99.0 Jarett Test ACCEPTAB ACCEPTAB Arterial Blood Gas Puncture Site Right Radial Right Radial Arterial Blood Carboxyhemoglobin 0.3 0.3 Arterial Blood Date Drawn 09/20/2016 7:19:05 AM 09/20/2016 9:46:44 AM Arterial Blood Methemoglobin 0.5 0.6 Arterial Blood pCO2 (Temp correct) 64.5 H 51.8 H Arterial Blood pH (Temp corrected) 7.279 *L 7.346 L Arterial Blood pO2 (Temp corrected) 463.7 H 287.3 H Blood Gas A-a O2 Differential 184.8 H 83.5 H Blood Gas Critical Value Read Back A PHILIPPE BURNS Blood Gas Modality MASK - NRB MASK - BIPAP Blood Gas Notified Time 09/20/2016 7:33:34 AM 09/20/2016 9:56:32 AM Blood Gas Notified Whom TM TM Blood Gas Specimen Source Blood arterial Blood arterial Blood Gas Temperature 37.0 37.0 FiO2 100.0 60.0 Oxyhemoglobin Percent 98.5 98.1 Total Hemoglobin 10.7 L 9.3 L Blood Gas Actual Respiration Rate 20 Blood Gas IPAP/EPAP Ratio 15/5 Blood Gas Pressure Support 10 Blood Gas Respiration Rate 14.0 Test 09/20/16 13:10 09/20/16 13:17 Bedside Glucose 66 L 74 Medications Medications Current Medications Ondansetron HCl (Zofran Inj) 4 mg Q6H PRN IV NAUSEA AND/OR VOMITING Last administered on 09/10/16 23:03; Admin Dose 4 MG; Start 09/09/16 at 20:00 Nitroglycerin (Nitroglycerin (Sl Tab) 0.4 Mg) 1 tab Q5M PRN SL CHEST PAIN; Start 09/09/16 at 20:00 Acetaminophen (Tylenol Liquid) 650 mg Q6H PRN PO PAIN LEVEL 1-3 OR FEVER; Start 09/09/16 at 20:00 Morphine Sulfate (morphine) 2 mg Q4H PRN IV PAIN LEVEL 7-10 Last administered on 09/20/16 07:43; Admin Dose 2 MG; Start 09/09/16 at 20:00 Lorazepam (Ativan) 1 mg Q2H PRN IV ANXIETY Last administered on 09/19/16 10:04 ; Admin Dose 1 MG; Start 09/09/16 at 20:00 Glucose (Glutose) 15 gm Q15M PRN PO DECREASED GLUCOSE; Start 09/09/16 at 20:30 Glucose (Glutose) 22.5 gm Q15M PRN PO DECREASED GLUCOSE; Start 09/09/16 at 20: 30 Dextrose (D50w Syringe) 25 ml Q15M PRN IV DECREASED GLUCOSE Last administered on 09/20/16 13:44; Admin Dose 25 ML; Start 09/09/16 at 20:30 Dextrose (D50w Syringe) 50 ml Q15M PRN IV DECREASED GLUCOSE; Start 09/09/16 at 20:30 Glucagon (Glucagen) 1 mg Q15M PRN IM DECREASED GLUCOSE; Start 09/09/16 at 20:30 Glucose (Glutose) 15 gm Q15M PRN BUCCAL DECREASED GLUCOSE; Start 09/09/16 at 20 :30 Famotidine (Pepcid Iv) 20 mg DAILY IV Last administered on 09/20/16 08:44; Admin Dose 20 MG; Start 09/10/16 at 09:00 Aspirin 81 mg 81 mg DAILY PO Last administered on 09/20/16 08:44; Admin Dose 81 MG; Start 09/12/16 at 09:00 Ceftriaxone Sodium (Rocephin) 50 ml @ 100 mls/hr Q24H IVPB Last administered on 09/19/16 16:21; Admin Dose 100 MLS/HR; Start 09/12/16 at 16:00 Insulin Aspart NOVOLOG *MODERATE* ALGORI... Q4 SC Last administered on 08:50; Admin Dose 4 UNIT; Start 09/13/16 at 13:00 Doxycycline Hyclate/Sodium Chloride (Vibramycin/NS) 250 ml @ 250 mls/hr Q12 IVPB Last administered on 09/20/16 08:45; Admin Dose 250 MLS/HR; Start at 15:00 Hydralazine HCl (Apresoline) 10 mg Q4H PRN IV SBP >160 Last administered on 09/19 12:43; Admin Dose 10 MG; Start 09/17/16 at 07:00 Docusate Sodium (Colace Liquid Cup) 100 mg Q12 PO Last administered on 08:44; Admin Dose 100 MG; Start 09/17/16 at 09:00 Metoprolol Tartrate (Lopressor) 50 mg BID PO Last administered on 09/20/16 08: 44; Admin Dose 50 MG; Start 09/19/16 at 21:00 Hydralazine HCl 25 mg 25 mg Q8 PO Last administered on 09/20/16 13:08; Admin Dose 25 MG; Start 09/19/16 at 14:00 Sodium Chloride (1/2 NS) 1,000 ml @ 40 mls/hr Q24H IV Last administered on 09/19 16:22; Admin Dose 40 MLS/HR; Start 09/19/16 at 16:30 Haloperidol (Haldol) 2 mg Q4H PRN IM AGITATION Last administered on 09/20/16 05 :31; Admin Dose 2 MG; Start 09/20/16 at 05:30 Insulin Glargine (Lantus) 10 unit QAM SC Last administered on 09/20/16 08:48; Admin Dose 10 UNIT; Start 09/20/16 at 09:00 MARIO ALBERTO CLAUDIO Sep 20, 2016 13:59
[2016-09-20] MEDS ORDERED: SOD CHLORIDE 0.9% 250 ML IV* ONE (14:00)
--- NOTE | 2016-09-20 14:03 | CONS ---
Date/Time of Note Date/Time of Note DATE: 09/20/16 TIME: 14:00 Assessment/Plan Assessment/Plan Additional Assessment/Plan Anemia * Stool OB pos * s/p EGD: Gastritis, negative for Helicobacter pylori infection, intestinal metaplasia present. Recommend repeat EGD in 6-8 weeks to assess for to rule out Agosto's * Continue PPI BID * Monitor Hgb daily, transfuse 2 units for hgb < 7.5 * Continue iron supplementation SHALOM * Nephrology following Elevated Troponin * Cardiology following Acute Respiratory Failure * On BiPAP * Pulmonology following Further recommendations depend on clinical course Patient seen in collaboration with Dr. Pinon Consultation Date/Type/Reason Admit Date/Time Sep 09, 2016 at 19:47 Initial Consult Date 09/13/16 Type of Consultation: Gastroenterology Referring Provider: EMILIANO HENDRICKS 24 HR Interval Summary Free Text/Dictation Extubated, currently on BiPAP NG tube with minimal residual Hemoglobin stable but trending downward Exam/Review of Systems Vital Signs Vitals Vital Signs Date Time Temp Pulse Resp B/P Pulse Ox O2 Delivery O2 Flow Rate FiO2 09/20/16 12:00 98.5 64 17 110/52 100 Mechanical Ventilator 09/20/16 11:16 30 Intake and Output 09/19/16 09/19/16 09/20/16 15:00 23:00 07:00 Intake Total 850 ml 1070 ml 700 ml Output Total 470 ml 370 ml 305 ml Balance 380 ml 700 ml 395 ml Exam Constitutional: non-verbal Eyes: nl conjunctiva Respiratory: other (intubated BiPAP) Cardiovascular: regular rate and rhythm Gastrointestinal: non-tender, soft Musculoskeletal: nl extremities to inspection Extremities: edema Neurological: lethargic Results Result Diagram: 09/20/16 0330 09/20/16 0330 Results 24 hrs Laboratory Tests Test 09/19/16 17:46 09/19/16 20:48 09/20/16 01:03 09/20/16 03:30 Bedside Glucose 200 165 198 Anion Gap 14 Basophils # 0.0 Basophils % 0.2 Blood Urea Nitrogen 45 H Calcium Level 8.3 L Carbon Dioxide Level 30 Chloride Level 111 H Creatinine 1.80 H Eosinophils # 0.2 Eosinophils % 2.1 Glucose Level 175 Hematocrit 25.2 L Hemoglobin 7.9 L Lymphocytes # 1.2 Lymphocytes % 11.9 L Mean Corpuscular Hemoglobin 28.1 L Mean Corpuscular Hemoglobin Concent 31.3 L Mean Corpuscular Volume 89.7 Mean Platelet Volume 13.2 H Monocytes # 1.1 H Monocytes % 10.3 Neutrophils # 7.8 H Neutrophils % 74.9 Nucleated Red Blood Cells # 0.0 Nucleated Red Blood Cells % 0.0 Platelet Count 185 Potassium Level 4.0 Red Blood Count 2.81 L Red Cell Distribution Width 16.6 H Sodium Level 151 H White Blood Count 10.4 Test 09/20/16 04:46 09/20/16 07:04 09/20/16 08:46 09/20/16 10:00 Bedside Glucose 174 188 Arterial Blood HCO3 29.6 H 27.7 H Arterial Blood Base Excess 1.7 1.5 Arterial Blood Oxygen Saturation 99.3 99.0 Jarett Test ACCEPTAB ACCEPTAB Arterial Blood Gas Puncture Site Right Radial Right Radial Arterial Blood Carboxyhemoglobin 0.3 0.3 Arterial Blood Date Drawn 09/20/2016 7:19:05 AM 09/20/2016 9:46:44 AM Arterial Blood Methemoglobin 0.5 0.6 Arterial Blood pCO2 (Temp correct) 64.5 H 51.8 H Arterial Blood pH (Temp corrected) 7.279 *L 7.346 L Arterial Blood pO2 (Temp corrected) 463.7 H 287.3 H Blood Gas A-a O2 Differential 184.8 H 83.5 H Blood Gas Critical Value Read Back A PHILIPPE BURNS Blood Gas Modality MASK - NRB MASK - BIPAP Blood Gas Notified Time 09/20/2016 7:33:34 AM 09/20/2016 9:56:32 AM Blood Gas Notified Whom TM TM Blood Gas Specimen Source Blood arterial Blood arterial Blood Gas Temperature 37.0 37.0 FiO2 100.0 60.0 Oxyhemoglobin Percent 98.5 98.1 Total Hemoglobin 10.7 L 9.3 L Blood Gas Actual Respiration Rate 20 Blood Gas IPAP/EPAP Ratio 15/5 Blood Gas Pressure Support 10 Blood Gas Respiration Rate 14.0 Test 09/20/16 13:10 09/20/16 13:17 09/20/16 13:38 Bedside Glucose 66 L 74 74 Medications Medications Current Medications Ondansetron HCl (Zofran Inj) 4 mg Q6H PRN IV NAUSEA AND/OR VOMITING Last administered on 09/10/16t 23:03; Admin Dose 4 MG; Start 09/09/16 at 20:00 Nitroglycerin (Nitroglycerin (Sl Tab) 0.4 Mg) 1 tab Q5M PRN SL CHEST PAIN; Start 09/09/16 at 20:00 Acetaminophen (Tylenol Liquid) 650 mg Q6H PRN PO PAIN LEVEL 1-3 OR FEVER; Start 09/09/16 at 20:00 Morphine Sulfate (morphine) 2 mg Q4H PRN IV PAIN LEVEL 7-10 Last administered on 09/20/16 07:43; Admin Dose 2 MG; Start 09/09/16 at 20:00 Lorazepam (Ativan) 1 mg Q2H PRN IV ANXIETY Last administered on 09/19/16 10:04 ; Admin Dose 1 MG; Start 09/09/16 at 20:00 Glucose (Glutose) 15 gm Q15M PRN PO DECREASED GLUCOSE; Start 09/09/16 at 20:30 Glucose (Glutose) 22.5 gm Q15M PRN PO DECREASED GLUCOSE; Start 09/09/16 at 20: 30 Dextrose (D50w Syringe) 25 ml Q15M PRN IV DECREASED GLUCOSE Last administered on 09/20/16 13:44; Admin Dose 25 ML; Start 09/09/16 at 20:30 Dextrose (D50w Syringe) 50 ml Q15M PRN IV DECREASED GLUCOSE; Start 09/09/16 at 20:30 Glucagon (Glucagen) 1 mg Q15M PRN IM DECREASED GLUCOSE; Start 09/09/16 at 20:30 Glucose (Glutose) 15 gm Q15M PRN BUCCAL DECREASED GLUCOSE; Start 09/09/16 at 20 :30 Famotidine (Pepcid Iv) 20 mg DAILY IV Last administered on 09/20/16 08:44; Admin Dose 20 MG; Start 09/10/16 at 09:00 Aspirin 81 mg 81 mg DAILY PO Last administered on 09/20/16 08:44; Admin Dose 81 MG; Start 09/12/16 at 09:00 Ceftriaxone Sodium (Rocephin) 50 ml @ 100 mls/hr Q24H IVPB Last administered on 09/19/16 16:21; Admin Dose 100 MLS/HR; Start 09/12/16 at 16:00 Insulin Aspart NOVOLOG *MODERATE* ALGORI... Q4 SC Last administered on 08:50; Admin Dose 4 UNIT; Start 09/13/16 at 13:00 Doxycycline Hyclate/Sodium Chloride (Vibramycin/NS) 250 ml @ 250 mls/hr Q12 IVPB Last administered on 09/20/16 08:45; Admin Dose 250 MLS/HR; Start at 15:00 Hydralazine HCl (Apresoline) 10 mg Q4H PRN IV SBP >160 Last administered on 09/19 12:43; Admin Dose 10 MG; Start 09/17/16 at 07:00 Docusate Sodium (Colace Liquid Cup) 100 mg Q12 PO Last administered on 08:44; Admin Dose 100 MG; Start 09/17/16 at 09:00 Metoprolol Tartrate (Lopressor) 50 mg BID PO Last administered on 09/20/16 08: 44; Admin Dose 50 MG; Start 09/19/16 at 21:00 Hydralazine HCl (Apresoline) 25 mg Q8 PO Last administered on 09/20/16 13:08; Admin Dose 25 MG; Start 09/19/16 at 14:00 Haloperidol (Haldol) 2 mg Q4H PRN IM AGITATION Last administered on 09/20/16 05 :31; Admin Dose 2 MG; Start 09/20/16 at 05:30 Insulin Glargine 10 unit 10 unit QAM SC Last administered on 09/20/16 08:48; Admin Dose 10 UNIT; Start 09/20/16 at 09:00 Dextrose (D5W) 1,000 ml @ 75 mls/hr [id number] IV ; Start 09/20/16 at 14:00 OSCAR GIMENEZ Sep 20, 2016 14:03
--- NOTE | 2016-09-20 14:06 | CONS ---
Date/Time of Note Date/Time of Note DATE: 09/20/16 TIME: 14:04 Assessment/Plan Assessment/Plan Chief Complaint/Hosp Course IMPRESSION: thrombocytopenia in pt with severe sepsis, exposed to multiple meds with pos thrombocytopenic effect, including VANCO, ZOSYN, HEPARIN,CEFAZOLIN NO EVIDENCE DIC cont to monitor blood count closely transfuse [place] [id number], considering severe sepsis HIPA- NEG PLATELET COUNT IMPROVING Leukocytosis. REACTIVE MONITOR IMPROVING Anemia. C/W ACD MONITOR BLOOD COUNT CLOSELY TRANSFUSE NEEDED Severe Sepsis with septic shock 2/2 Ecoli UTI /Bacteremia Acute renal failure - 2/2 to ATN from sepsis Type II DM - Hyperglycemic on D5W Metabolic / Lactic acidosis 2/ #1 Acute resp failure now ventilator dependent NSTEMI versus demand ischemia Positive troponin, assess significance, assess for true acute coronary syndrome. Metabolic acidosis respiratory failure, vent dependent incomplete database Thank you for allowing me to take part in the care of this patient. I will continue to follow along very closely with you. Further recommendations will be made as the patient progresses through her inpatient hospital clinical course. Problems: Consultation Date/Type/Reason Admit Date/Time Sep 09, 2016 at 19:47 Initial Consult Date 09/13/16 Type of Consultation: HEMEON Referring Provider: EMILIANO HENDRICKS 24 HR Interval Summary Free Text/Dictation Pt self extubated herself today, presently on BiPAP. H/H DROPPED NO BLEEDING COUNT - MUCH BETTER Exam/Review of Systems Vital Signs Vitals Vital Signs Date Time Temp Pulse Resp B/P Pulse Ox O2 Delivery O2 Flow Rate FiO2 09/20/16 12:00 98.5 64 17 110/52 100 Mechanical Ventilator 09/20/16 11:16 30 Intake and Output 09/19/16 09/19/16 09/20/16 15:00 23:00 07:00 Intake Total 850 ml 1070 ml 700 ml Output Total 470 ml 370 ml 305 ml Balance 380 ml 700 ml 395 ml Exam Constitutional: frail, on BiPAP presently Head: normocephalic Eyes: PERRL, icteric ENMT: intubated Respiratory: clear to auscultation, diminished breath sounds Cardiovascular: regular rate and rhythm, No murmurs/extra sounds Gastrointestinal: bowel sounds, distended, other (large periumbilical hernia), soft Genitourinary - Female: other (montoya draining clear urine) Extremities: No edema Neurological: No nl mental status Results Result Diagram: 09/20/16 0330 09/20/16 0330 Results 24 hrs Laboratory Tests Test 09/19/16 17:46 09/19/16 20:48 09/20/16 01:03 09/20/16 03:30 Bedside Glucose 200 165 198 Anion Gap 14 Basophils # 0.0 Basophils % 0.2 Blood Urea Nitrogen 45 H Calcium Level 8.3 L Carbon Dioxide Level 30 Chloride Level 111 H Creatinine 1.80 H Eosinophils # 0.2 Eosinophils % 2.1 Glucose Level 175 Hematocrit 25.2 L Hemoglobin 7.9 L Lymphocytes # 1.2 Lymphocytes % 11.9 L Mean Corpuscular Hemoglobin 28.1 L Mean Corpuscular Hemoglobin Concent 31.3 L Mean Corpuscular Volume 89.7 Mean Platelet Volume 13.2 H Monocytes # 1.1 H Monocytes % 10.3 Neutrophils # 7.8 H Neutrophils % 74.9 Nucleated Red Blood Cells # 0.0 Nucleated Red Blood Cells % 0.0 Platelet Count 185 Potassium Level 4.0 Red Blood Count 2.81 L Red Cell Distribution Width 16.6 H Sodium Level 151 H White Blood Count 10.4 Test 09/20/16 04:46 09/20/16 07:04 09/20/16 08:46 09/20/16 10:00 Bedside Glucose 174 188 Arterial Blood HCO3 29.6 H 27.7 H Arterial Blood Base Excess 1.7 1.5 Arterial Blood Oxygen Saturation 99.3 99.0 Jarett Test ACCEPTAB ACCEPTAB Arterial Blood Gas Puncture Site Right Radial Right Radial Arterial Blood Carboxyhemoglobin 0.3 0.3 Arterial Blood Date Drawn 09/20/2016 7:19:05 AM 09/20/2016 9:46:44 AM Arterial Blood Methemoglobin 0.5 0.6 Arterial Blood pCO2 (Temp correct) 64.5 H 51.8 H Arterial Blood pH (Temp corrected) 7.279 *L 7.346 L Arterial Blood pO2 (Temp corrected) 463.7 H 287.3 H Blood Gas A-a O2 Differential 184.8 H 83.5 H Blood Gas Critical Value Read Back A PHILIPPE BURNS Blood Gas Modality MASK - NRB MASK - BIPAP Blood Gas Notified Time 09/20/2016 7:33:34 AM 09/20/2016 9:56:32 AM Blood Gas Notified Whom TM TM Blood Gas Specimen Source Blood arterial Blood arterial Blood Gas Temperature 37.0 37.0 FiO2 100.0 60.0 Oxyhemoglobin Percent 98.5 98.1 Total Hemoglobin 10.7 L 9.3 L Blood Gas Actual Respiration Rate 20 Blood Gas IPAP/EPAP Ratio 15/5 Blood Gas Pressure Support 10 Blood Gas Respiration Rate 14.0 Test 09/20/16 13:10 09/20/16 13:17 09/20/16 13:38 Bedside Glucose 66 L 74 74 Medications Medications Current Medications Ondansetron HCl (Zofran Inj) 4 mg Q6H PRN IV NAUSEA AND/OR VOMITING Last administered on 09/10/16 23:03; Admin Dose 4 MG; Start 09/09/16 at 20:00 Nitroglycerin (Nitroglycerin (Sl Tab) 0.4 Mg) 1 tab Q5M PRN SL CHEST PAIN; Start 09/09/16 at 20:00 Acetaminophen (Tylenol Liquid) 650 mg Q6H PRN PO PAIN LEVEL 1-3 OR FEVER; Start 09/09/16 at 20:00 Morphine Sulfate (morphine) 2 mg Q4H PRN IV PAIN LEVEL 7-10 Last administered on 09/20/16 07:43; Admin Dose 2 MG; Start 09/09/16 at 20:00 Lorazepam (Ativan) 1 mg Q2H PRN IV ANXIETY Last administered on 09/19/16 10:04 ; Admin Dose 1 MG; Start 09/09/16 at 20:00 Glucose (Glutose) 15 gm Q15M PRN PO DECREASED GLUCOSE; Start 09/09/16 at 20:30 Glucose (Glutose) 22.5 gm Q15M PRN PO DECREASED GLUCOSE; Start 09/09/16 at 20: 30 Dextrose (D50w Syringe) 25 ml Q15M PRN IV DECREASED GLUCOSE Last administered on 09/20/16 13:44; Admin Dose 25 ML; Start 09/09/16 at 20:30 Dextrose (D50w Syringe) 50 ml Q15M PRN IV DECREASED GLUCOSE; Start 09/09/16 at 20:30 Glucagon (Glucagen) 1 mg Q15M PRN IM DECREASED GLUCOSE; Start 09/09/16 at 20:30 Glucose (Glutose) 15 gm Q15M PRN BUCCAL DECREASED GLUCOSE; Start 09/09/16 at 20 :30 Famotidine (Pepcid Iv) 20 mg DAILY IV Last administered on 09/20/16 08:44; Admin Dose 20 MG; Start 09/10/16 at 09:00 Aspirin 81 mg 81 mg DAILY PO Last administered on 09/20/16 08:44; Admin Dose 81 MG; Start 09/12/16 at 09:00 Ceftriaxone Sodium (Rocephin) 50 ml @ 100 mls/hr Q24H IVPB Last administered on 09/19/16 16:21; Admin Dose 100 MLS/HR; Start 09/12/16 at 16:00 Insulin Aspart NOVOLOG *MODERATE* ALGORI... Q4 SC Last administered on 08:50; Admin Dose 4 UNIT; Start 09/13/16 at 13:00 Doxycycline Hyclate/Sodium Chloride (Vibramycin/NS) 250 ml @ 250 mls/hr Q12 IVPB Last administered on 09/20/16 08:45; Admin Dose 250 MLS/HR; Start at 15:00 Hydralazine HCl (Apresoline) 10 mg Q4H PRN IV SBP >160 Last administered on 09/19 12:43; Admin Dose 10 MG; Start 09/17/16 at 07:00 Docusate Sodium (Colace Liquid Cup) 100 mg Q12 PO Last administered on 08:44; Admin Dose 100 MG; Start 09/17/16 at 09:00 Metoprolol Tartrate (Lopressor) 50 mg BID PO Last administered on 09/20/16 08: 44; Admin Dose 50 MG; Start 09/19/16 at 21:00 Hydralazine HCl (Apresoline) 25 mg Q8 PO Last administered on 09/20/16 13:08; Admin Dose 25 MG; Start 09/19/16 at 14:00 Haloperidol (Haldol) 2 mg Q4H PRN IM AGITATION Last administered on 09/20/16 05 :31; Admin Dose 2 MG; Start 09/20/16 at 05:30 Insulin Glargine 10 unit 10 unit QAM SC Last administered on 09/20/16 08:48; Admin Dose 10 UNIT; Start 09/20/16 at 09:00 Dextrose 1,000 ml @ 75 mls/hr [id number] IV ; Start 09/20/16 at 14:00 Sodium Chloride (NS) 250 ml @ 0 mls/hr Q0M ONCE IV* ; Start 09/20/16 at 14:00; Stop 09/20/16 at 14:01; Status UNV JEFF FRANK MD Sep 20, 2016 14:06
[2016-09-20] MEDS: DEXTROSE 5% 1,000 ML IV SCH (14:14)
[2016-09-20] MEDS: CEFTRIAXONE 1 GM/50 ML (PMX) 50 ML IVPB SCH (16:16)
--- NOTE | 2016-09-20 17:47 | CONS ---
Date/Time of Note Date/Time of Note DATE: 09/20/16 TIME: 17:46 Assessment/Plan Assessment/Plan Chief Complaint/Hosp Course IMPRESSION: 1. Patient has acute kidney injury./atn stable better 2. Patient has acute kidney injury possibly due to severe hypotension and sepsis.better 3. vdrf 4.. Patient has leukocytosis, anemia, thrombocytopenia. The patient has Escherichia coli bacteremia, E. coli urinary tract infection. 5 hypernatremia plan D5 WATER ck bmp Problems: Consultation Date/Type/Reason Admit Date/Time Sep 09, 2016 at 19:47 Initial Consult Date 09/11/16 Type of Consultation: RENAL Referring Provider: EMILIANO HENDRICKS 24 HR Interval Summary Constitutional: other (OF VENT) Exam/Review of Systems Vital Signs Vitals Vital Signs Date Time Temp Pulse Resp B/P Pulse Ox O2 Delivery O2 Flow Rate FiO2 09/20/16 16:00 98.6 69 20 150/60 100 BIPAP 09/20/16 11:16 30 Intake and Output 09/19/16 09/19/16 09/20/16 15:00 23:00 07:00 Intake Total 850 ml 1070 ml 700 ml Output Total 470 ml 370 ml 305 ml Balance 380 ml 700 ml 395 ml Exam Neck: supple Respiratory: clear to auscultation Cardiovascular: regular rate and rhythm Gastrointestinal: soft Musculoskeletal: nl extremities to inspection Extremities: normal pulses Results Result Diagram: 09/20/16 0330 09/20/16 0330 Results 24 hrs Laboratory Tests Test 09/19/16 20:48 09/20/16 01:03 09/20/16 03:30 09/20/16 04:46 Bedside Glucose 165 198 174 Anion Gap 14 Basophils # 0.0 Basophils % 0.2 Blood Urea Nitrogen 45 H Calcium Level 8.3 L Carbon Dioxide Level 30 Chloride Level 111 H Creatinine 1.80 H Eosinophils # 0.2 Eosinophils % 2.1 Glucose Level 175 Hematocrit 25.2 L Hemoglobin 7.9 L Lymphocytes # 1.2 Lymphocytes % 11.9 L Mean Corpuscular Hemoglobin 28.1 L Mean Corpuscular Hemoglobin Concent 31.3 L Mean Corpuscular Volume 89.7 Mean Platelet Volume 13.2 H Monocytes # 1.1 H Monocytes % 10.3 Neutrophils # 7.8 H Neutrophils % 74.9 Nucleated Red Blood Cells # 0.0 Nucleated Red Blood Cells % 0.0 Platelet Count 185 Potassium Level 4.0 Red Blood Count 2.81 L Red Cell Distribution Width 16.6 H Sodium Level 151 H White Blood Count 10.4 Test 09/20/16 07:04 09/20/16 08:46 09/20/16 10:00 09/20/16 13:10 Arterial Blood HCO3 29.6 H 27.7 H Arterial Blood Base Excess 1.7 1.5 Arterial Blood Oxygen Saturation 99.3 99.0 Jarett Test ACCEPTAB ACCEPTAB Arterial Blood Gas Puncture Site Right Radial Right Radial Arterial Blood Carboxyhemoglobin 0.3 0.3 Arterial Blood Date Drawn 09/20/2016 7:19:05 AM 09/20/2016 9:46:44 AM Arterial Blood Methemoglobin 0.5 0.6 Arterial Blood pCO2 (Temp correct) 64.5 H 51.8 H Arterial Blood pH (Temp corrected) 7.279 *L 7.346 L Arterial Blood pO2 (Temp corrected) 463.7 H 287.3 H Blood Gas A-a O2 Differential 184.8 H 83.5 H Blood Gas Critical Value Read Back A PHILIPPE BURNS Blood Gas Modality MASK - NRB MASK - BIPAP Blood Gas Notified Time 09/20/2016 7:33:34 AM 09/20/2016 9:56:32 AM Blood Gas Notified Whom TM TM Blood Gas Specimen Source Blood arterial Blood arterial Blood Gas Temperature 37.0 37.0 FiO2 100.0 60.0 Oxyhemoglobin Percent 98.5 98.1 Total Hemoglobin 10.7 L 9.3 L Bedside Glucose 188 66 L Blood Gas Actual Respiration Rate 20 Blood Gas IPAP/EPAP Ratio 15/5 Blood Gas Pressure Support 10 Blood Gas Respiration Rate 14.0 Test 09/20/16 13:17 09/20/16 13:38 09/20/16 14:02 09/20/16 14:16 Bedside Glucose 74 74 127 114 Test 09/20/16 16:56 Bedside Glucose 136 Medications Medications Current Medications Ondansetron HCl (Zofran Inj) 4 mg Q6H PRN IV NAUSEA AND/OR VOMITING Last administered on 09/10/16t 23:03; Admin Dose 4 MG; Start 09/09/16 at 20:00 Nitroglycerin (Nitroglycerin (Sl Tab) 0.4 Mg) 1 tab Q5M PRN SL CHEST PAIN; Start 09/09/16 at 20:00 Acetaminophen (Tylenol Liquid) 650 mg Q6H PRN PO PAIN LEVEL 1-3 OR FEVER; Start 09/09/16 at 20:00 Morphine Sulfate (morphine) 2 mg Q4H PRN IV PAIN LEVEL 7-10 Last administered on 09/20/16 07:43; Admin Dose 2 MG; Start 09/09/16 at 20:00 Lorazepam (Ativan) 1 mg Q2H PRN IV ANXIETY Last administered on 09/19/16 10:04 ; Admin Dose 1 MG; Start 09/09/16 at 20:00 Glucose (Glutose) 15 gm Q15M PRN PO DECREASED GLUCOSE; Start 09/09/16 at 20:30 Glucose (Glutose) 22.5 gm Q15M PRN PO DECREASED GLUCOSE; Start 09/09/16 at 20: 30 Dextrose (D50w Syringe) 25 ml Q15M PRN IV DECREASED GLUCOSE Last administered on 09/20/16 13:44; Admin Dose 25 ML; Start 09/09/16 at 20:30 Dextrose (D50w Syringe) 50 ml Q15M PRN IV DECREASED GLUCOSE; Start 09/09/16 at 20:30 Glucagon (Glucagen) 1 mg Q15M PRN IM DECREASED GLUCOSE; Start 09/09/16 at 20:30 Glucose (Glutose) 15 gm Q15M PRN BUCCAL DECREASED GLUCOSE; Start 09/09/16 at 20 :30 Famotidine (Pepcid Iv) 20 mg DAILY IV Last administered on 09/20/16 08:44; Admin Dose 20 MG; Start 09/10/16 at 09:00 Aspirin 81 mg 81 mg DAILY PO Last administered on 09/20/16 08:44; Admin Dose 81 MG; Start 09/12/16 at 09:00 Ceftriaxone Sodium (Rocephin) 50 ml @ 100 mls/hr Q24H IVPB Last administered on 09/20/16 16:16; Admin Dose 100 MLS/HR; Start 09/12/16 at 16:00 Insulin Aspart NOVOLOG *MODERATE* ALGORI... Q4 SC Last administered on 08:50; Admin Dose 4 UNIT; Start 09/13/16 at 13:00 Doxycycline Hyclate/Sodium Chloride (Vibramycin/NS) 250 ml @ 250 mls/hr Q12 IVPB Last administered on 09/20/16 08:45; Admin Dose 250 MLS/HR; Start at 15:00 Hydralazine HCl (Apresoline) 10 mg Q4H PRN IV SBP >160 Last administered on 09/19 12:43; Admin Dose 10 MG; Start 09/17/16 at 07:00 Docusate Sodium (Colace Liquid Cup) 100 mg Q12 PO Last administered on 08:44; Admin Dose 100 MG; Start 09/17/16 at 09:00 Metoprolol Tartrate (Lopressor) 50 mg BID PO Last administered on 09/20/16 08: 44; Admin Dose 50 MG; Start 09/19/16 at 21:00 Hydralazine HCl (Apresoline) 25 mg Q8 PO Last administered on 09/20/16 13:08; Admin Dose 25 MG; Start 09/19/16 at 14:00 Haloperidol (Haldol) 2 mg Q4H PRN IM AGITATION Last administered on 09/20/16 05 :31; Admin Dose 2 MG; Start 09/20/16 at 05:30 Insulin Glargine 10 unit 10 unit QAM SC Last administered on 09/20/16 08:48; Admin Dose 10 UNIT; Start 09/20/16 at 09:00 Dextrose (D5W) 1,000 ml @ 75 mls/hr [id number] IV Last administered on 09/20/16 14:14; Admin Dose 75 MLS/HR; Start 09/20/16 at 14:00 QUITA SCHOFIELD MD Sep 20, 2016 17:47
[2016-09-20] MEDS: hydrALAzine 20 MG INJ IV PRN (21:06)
[2016-09-20] MEDS: LORAZEPAM 2 MG INJ IV PRN ×2 (21:29→23:53)
[2016-09-21] VITALS (47 sets, daily range): BP systolic 115–185; BP diastolic 49–136; PULSE 67–103; RESP 16–31
[2016-09-21] MEDS: INSULIN ASPART [NOVOLOG] 3 ML PEN SC SCH ×6 (01:33→20:39)
[2016-09-21] MEDS: HALOPERIDOL 5 MG INJ IM PRN ×2 (01:35→20:36)
[2016-09-21] MEDS: hydrALAzine 20 MG INJ IV PRN (01:39)
[2016-09-21] MEDS: morphine 2 MG INJ IV PRN ×3 (02:17→23:49)
[2016-09-21] MEDS: LORAZEPAM 2 MG INJ IV PRN ×2 (03:07→21:38)
[2016-09-21] MEDS: DEXTROSE 5% 1,000 ML IV SCH ×2 (03:12→05:16)
[2016-09-21] MEDS ORDERED: LABETALOL HCL 20MG INJ IV ONE (04:00)
[2016-09-21 05:05] LABS: ADD SCAN DIFF NO
[2016-09-21 05:16] LABS: ABNORMAL IP MESSAGE 1; BASOPHIL # 0.1 10^3/ul (0.0-0.1); BASOPHILS % 0.4 % (0.0-2.0); EOSINOPHILS # 0.3 10^3/ul (0.0-0.5); EOSINOPHILS % 2.6 % (0.0-7.0); HEMOGLOBIN 12.3 g/dl (12.0-16.0); LYMPHOCYTES # 1.9 10^3/ul (0.8-2.9); LYMPHOCYTES % 14.6 % (15.0-51.0); MEAN CORPUSCULAR HEMOGLOBIN 28.3 pg (29.0-33.0); MEAN CORPUSCULAR HGB CONC 31.5 g/dl (32.0-37.0); MEAN CORPUSCULAR VOLUME 89.7 fl (82.0-101.0); MEAN PLATELET VOLUME 12.9 fl (7.4-10.4); MONOCYTE # 1.7 10^3/ul (0.3-0.9); MONOCYTES % 12.5 % (0.0-11.0); NEUTROPHIL # 9.1 10^3/ul (1.6-7.5); NEUTROPHILS % 68.4 % (39.0-77.0); PLATELET COUNT 242 10^3/UL (140-415); RED BLOOD COUNT 4.35 10^6/ul (4.20-5.40); RED CELL DISTRIBUTION WIDTH 15.9 % (11.5-14.5); WHITE BLOOD COUNT 13.2 10^3/ul (4.8-10.8)
[2016-09-21 05:17] LABS: POTASSIUM 3.7 mmol/L (3.5-5.1)
[2016-09-21 05:20] LABS: CALCIUM 8.5 mg/dl (8.4-10.2); CREATININE 1.55 mg/dl (0.44-1.00)
[2016-09-21 05:54] LABS: AADO2 Arterial 56.6 mmHg (7.0-24.0); Allen Test ACCEPTAB; Arterial Base Excess 2.7 mmol/L (-3.0-3); Arterial COHb 0.2 % (0.0-3.0); Arterial Fraction of Oxyhgb 96.7 % (93.0-99.0); Arterial HCO3 28.4 mmol/L (22.0-26.0); Arterial MetHb 0.3 % (0.0-1.5); Arterial Total Hemglobin 11.8 g/dl (12.0-18.0); Blood Gas IEPAP 15/5; Blood Gas PS 10; MODE MASK - BIPAP
[2016-09-21] MEDS: METOPROLOL 50 MG TAB PO SCH ×2 (08:36→20:36)
[2016-09-21] MEDS: DOXYCYCLINE 100 MG in SOD CHLORIDE 0.9% 250 ML IVPB SCH ×2 (08:36→20:34)
[2016-09-21] MEDS: DOCUSATE SODIUM 10 MG/ML (10ML CUP) PO SCH ×2 (08:37→20:36)
[2016-09-21] MEDS: FAMOTIDINE 20 MG INJ IV SCH (08:37)
[2016-09-21] MEDS: ASPIRIN 81 MG TAB PO SCH (08:37)
[2016-09-21] MEDS: INSULIN GLARGINE [LANtus] 3 ML PEN SC SCH (08:41)
--- NOTE | 2016-09-21 13:34 | PN ---
DATE: 09/21/2016 SUBJECTIVE: No events overnight. No fevers. Patient was extubated, lethargic on BiPAP, looks comf ortable. VITAL SIGNS: Temperature 97.9, pulse 70, respirations 21, blood pressure 126/53, saturation 100 on BiPAP. WBC 13.2, platelets 242, no shift, no bands. BUN 40, creatinine 1.55. ANTIMICROBIALS: The patient is on: 1. Doxycycline 2. Rocephin. INDWELLINGS: The patient has NG tube, Alaniz catheter, right IJ. PHYSICAL EXAMINATION: GENERAL: Fragile, elderly woman who is lethargic, comfortable on BiPAP. HEENT: Head atraumatic, normocephalic. Sclerae anicteric. Buccal mucosa dry. NECK: Supple, trachea midline. CHEST: Rise symmetrical. Breath sounds diminished to bases. HEART: S1, S2. ABDOMEN: Soft, bowel tones present. EXTREMITIES: Without cyanosis. ASSESSMENT: 1. Resolving sepsis status post shock. 2. Status post Escherichia coli urinary tract infection with bacteremia. 3. Acute respiratory failure, status post extubated, now on BiPAP. 4. Acute renal failure. 5. Anemia. 6. Encephalopathy. PLAN: The patient remains stable post-extubation, completing antibiotics. Repeat blood cultures si September 12 negative. Continue management as per primary team and consultants. Dictated By: CHLOE MONROY [employer] CLINICAL NURSE SPECIALIST for DELANO RODRIGUEZ/ARLENE Conf#: [id number] DID#: [id number]
--- NOTE | 2016-09-21 13:35 | PN ---
Date/Time of Note Date/Time of Note DATE: 09/21/16 TIME: 13:33 Assessment/Plan VTE Prophylaxis VTE Prophylaxis Intervention: contraindicated, SCD's VTE Contraindication Reason: thrombocytopenia Lines/Catheters IV Catheter Type (from Nrs): Central Line Central line still needed: Yes Urinary Cath still in place: Yes Reason Cath still needed: urinary retention Assessment/Plan Chief Complaint/Hosp Course Assessment/Plan: 75 yo female with a past medical history of type II DM, chronic pain who complains of weakness and decreased urinary output for the last several days, found with septic shock. 1. Septic shock - 2/2 Ecoli UTI /Bacteremia - improving now, has been off pressors for a few days now. - Continue broad spectrum abx / Appreciate ID consult, f/u rec's - Continue ICU care for now 2. Acute renal failure r/o CKD- 2/2 to ATN from sepsis - improving now - monitor UO, Cr, f/u renal rec's 3. Type II DM - controlled on SSI - SSI only for now 4. Metabolic / Lactic acidosis 2/2 #1: resolved 5. Acute resp failure now ventilator dependent - self extubated herself today - on BiPAP now - Continue Vent mgt per pulm 6. NSTEMI versus elevated trop - CV monitoring. ECHO = EF 45-50 by echo this admit. - Daily aspirin, may need further cardiac intervention when more medically stable - continue BB per CV team 7. new onset thrombocytopenia: resolved now (38 -> 70 -> 137 -> 170 ->185 -> 242 ) - per heme Onc does not appear to be DIC. possibly is sec to sepsis and per per Heme/Onc, pt was also exposed to multiple meds with pos thrombocytopenic effect, including VANCO, ZOSYN, HEPARIN,CEFAZOLIN. HIT antibody negative/ s/p FFP and platelet transfusion. - monitor for now, transfuse if plts < 20,000 per heme/Onc rec's. 8. Severe Iron deficiency: + occult test stool. No signs of GI bleeding presently. S/p EGD 3 days ago with gastritis findings only. s/p pRBC transfusion yesterday, H/H stable now - monitor CBC daily - f/u GI rec's, monitor PROPHYLAXIS: Pepcid / SCDS CRITICAL CARE TIME: 40 mins Problems: Subjective 24 Hr Interval Summary Free Text/Dictation Still on BiPAP. No acute events overnight. Had pRBC transfusion yesterday. Exam/Review of Systems Vital Signs Vitals Vital Signs Date Time Temp Pulse Resp B/P Pulse Ox O2 Delivery O2 Flow Rate FiO2 09/21/16 13:00 70 21 126/53 100 BIPAP 09/21/16 12:00 97.9 09/21/16 09:20 30 09/21/16 03:00 4.0 Intake and Output 09/20/16 09/20/16 09/21/16 15:00 23:00 07:00 Intake Total 705 ml 1245 ml 1080 ml Output Total 910 ml 1055 ml 280 ml Balance -205 ml 190 ml 800 ml Exam Constitutional: frail, on BiPAP presently Head: normocephalic Eyes: PERRL, icteric ENMT: intubated Respiratory: clear to auscultation, diminished breath sounds Cardiovascular: regular rate and rhythm, No murmurs/extra sounds Gastrointestinal: bowel sounds, distended, other (large periumbilical hernia), soft Genitourinary - Female: other (montoya draining clear urine) Extremities: No edema Neurological: No nl mental status Results Result Diagram: 09/21/16 0335 09/21/16 0335 Results 24 hrs Laboratory Tests Test 09/20/16 13:38 09/20/16 14:02 09/20/16 14:16 09/20/16 16:56 Bedside Glucose 74 127 114 136 Test 09/20/16 20:14 09/21/16 01:30 09/21/16 03:35 09/21/16 04:33 Bedside Glucose 151 186 164 Anion Gap 18 H Basophils # 0.1 Basophils % 0.4 Blood Urea Nitrogen 40 H Calcium Level 8.5 Carbon Dioxide Level 28 Chloride Level 108 Creatinine 1.55 H Eosinophils # 0.3 Eosinophils % 2.6 Glucose Level 158 Hematocrit 39.0 # Hemoglobin 12.3 # Lymphocytes # 1.9 Lymphocytes % 14.6 L Mean Corpuscular Hemoglobin 28.3 L Mean Corpuscular Hemoglobin Concent 31.5 L Mean Corpuscular Volume 89.7 Mean Platelet Volume 12.9 H Monocytes # 1.7 H Monocytes % 12.5 H Neutrophils # 9.1 H Neutrophils % 68.4 Nucleated Red Blood Cells # 0.0 Nucleated Red Blood Cells % 0.0 Platelet Count 242 # Potassium Level 3.7 Red Blood Count 4.35 # Red Cell Distribution Width 15.9 H Sodium Level 150 H White Blood Count 13.2 #H Test 09/21/16 07:00 09/21/16 08:39 09/21/16 13:11 Arterial Blood HCO3 28.4 H Arterial Blood Base Excess 2.7 Arterial Blood Oxygen Saturation 97.2 Jarett Test ACCEPTAB Arterial Blood Gas Puncture Site Right Radial Arterial Blood Carboxyhemoglobin 0.2 Arterial Blood Date Drawn 09/21/2016 5:42:49 AM Arterial Blood Methemoglobin 0.3 Arterial Blood pCO2 (Temp correct) 48.8 H Arterial Blood pH (Temp corrected) 7.383 Arterial Blood pO2 (Temp corrected) 100.0 H Blood Gas A-a O2 Differential 56.6 H Blood Gas Actual Respiration Rate 26 Blood Gas IPAP/EPAP Ratio 15/5 Blood Gas Modality MASK - BIPAP Blood Gas Notified Time 09/21/2016 5:54:33 AM Blood Gas Notified Zeynep NGUYEN [employer] Blood Gas Pressure Support 10 Blood Gas Respiration Rate 14.0 Blood Gas Specimen Source Blood arterial Blood Gas Temperature 37.0 FiO2 30.0 Oxyhemoglobin Percent 96.7 Total Hemoglobin 11.8 L Bedside Glucose 183 135 Medications Medications Current Medications Ondansetron HCl (Zofran Inj) 4 mg Q6H PRN IV NAUSEA AND/OR VOMITING Last administered on 09/10/16 23:03; Admin Dose 4 MG; Start 09/09/16 at 20:00 Nitroglycerin (Nitroglycerin (Sl Tab) 0.4 Mg) 1 tab Q5M PRN SL CHEST PAIN; Start 09/09/16 at 20:00 Acetaminophen (Tylenol Liquid) 650 mg Q6H PRN PO PAIN LEVEL 1-3 OR FEVER; Start 09/09/16 at 20:00 Morphine Sulfate (morphine) 2 mg Q4H PRN IV PAIN LEVEL 7-10 Last administered on 09/21/16 02:17; Admin Dose 2 MG; Start 09/09/16 at 20:00 Lorazepam (Ativan) 1 mg Q2H PRN IV ANXIETY Last administered on 09/21/16 03:07 ; Admin Dose 1 MG; Start 09/09/16 at 20:00 Glucose (Glutose) 15 gm Q15M PRN PO DECREASED GLUCOSE; Start 09/09/16 at 20:30 Glucose (Glutose) 22.5 gm Q15M PRN PO DECREASED GLUCOSE; Start 09/09/16 at 20: 30 Dextrose (D50w Syringe) 25 ml Q15M PRN IV DECREASED GLUCOSE Last administered on 09/20/16 13:44; Admin Dose 25 ML; Start 09/09/16 at 20:30 Dextrose (D50w Syringe) 50 ml Q15M PRN IV DECREASED GLUCOSE; Start 09/09/16 at 20:30 Glucagon (Glucagen) 1 mg Q15M PRN IM DECREASED GLUCOSE; Start 09/09/16 at 20:30 Glucose (Glutose) 15 gm Q15M PRN BUCCAL DECREASED GLUCOSE; Start 09/09/16 at 20 :30 Famotidine (Pepcid Iv) 20 mg DAILY IV Last administered on 09/21/16 08:37; Admin Dose 20 MG; Start 09/10/16 at 09:00 Aspirin 81 mg 81 mg DAILY PO Last administered on 09/21/16 08:37; Admin Dose 81 MG; Start 09/12/16 at 09:00 Ceftriaxone Sodium (Rocephin) 50 ml @ 100 mls/hr Q24H IVPB Last administered on 09/20/16 16:16; Admin Dose 100 MLS/HR; Start 09/12/16 at 16:00 Insulin Aspart NOVOLOG *MODERATE* ALGORI... Q4 SC Last administered on 08:43; Admin Dose 4 UNIT; Start 09/13/16 at 13:00 Doxycycline Hyclate/Sodium Chloride (Vibramycin/NS) 250 ml @ 250 mls/hr Q12 IVPB Last administered on 09/21/16 08:36; Admin Dose 250 MLS/HR; Start at 15:00 Hydralazine HCl (Apresoline) 10 mg Q4H PRN IV SBP >160 Last administered on 09/21 01:39; Admin Dose 10 MG; Start 09/17/16 at 07:00 Docusate Sodium (Colace Liquid Cup) 100 mg Q12 PO Last administered on 08:37; Admin Dose 100 MG; Start 09/17/16 at 09:00 Metoprolol Tartrate (Lopressor) 50 mg BID PO Last administered on 09/21/16 08: 36; Admin Dose 50 MG; Start 09/19/16 at 21:00 Hydralazine HCl (Apresoline) 25 mg Q8 PO Last administered on 09/21/16 13:12; Admin Dose 25 MG; Start 09/19/16 at 14:00 Haloperidol (Haldol) 2 mg Q4H PRN IM AGITATION Last administered on 09/21/16 01 :35; Admin Dose 2 MG; Start 09/20/16 at 05:30 Insulin Glargine 10 unit 10 unit QAM SC Last administered on 09/21/16 08:41; Admin Dose 10 UNIT; Start 09/20/16 at 09:00 Dextrose (D5W) 1,000 ml @ 75 mls/hr [id number] IV Last administered on 09/21/16 05:16; Admin Dose 75 MLS/HR; Start 09/20/16 at 14:00 MARIO ALBERTO CLAUDIO Sep 21, 2016 13:35
--- NOTE | 2016-09-21 14:02 | CONS ---
Date/Time of Note Date/Time of Note DATE: 09/21/16 TIME: 13:59 Consult Date/Type/Reason Admit Date/Time Sep 09, 2016 at 19:47 Initial Consult Date 09/13/16 Type of Consultation: Pulm Ordering Provider: EMILIANO HENDRICKS Subjective Remains on BiPAP; alert and awake. ABG looks good. Objective Vital Signs Date Time Temp Pulse Resp B/P Pulse Ox O2 Delivery O2 Flow Rate FiO2 09/21/16 13:00 70 21 126/53 100 BIPAP 09/21/16 12:00 97.9 09/21/16 09:20 30 09/21/16 03:00 4.0 Intake and Output 09/20/16 09/20/16 09/21/16 15:00 23:00 07:00 Intake Total 705 ml 1245 ml 1080 ml Output Total 910 ml 1055 ml 280 ml Balance -205 ml 190 ml 800 ml HEENT: Neck supple; no JVD; no LAD CVS: RRR, S1 and S2 CHEST: Clear ABD: Soft, NT, + BS EXT: No c/c/e Results/Medications Result Diagram: 09/21/16 0335 09/21/16 0335 Results 24 hrs Laboratory Tests Test 09/20/16 14:02 09/20/16 14:16 09/20/16 16:56 09/20/16 20:14 Bedside Glucose 127 114 136 151 Test 09/21/16 01:30 09/21/16 03:35 09/21/16 04:33 09/21/16 07:00 Bedside Glucose 186 164 Anion Gap 18 H Basophils # 0.1 Basophils % 0.4 Blood Urea Nitrogen 40 H Calcium Level 8.5 Carbon Dioxide Level 28 Chloride Level 108 Creatinine 1.55 H Eosinophils # 0.3 Eosinophils % 2.6 Glucose Level 158 Hematocrit 39.0 # Hemoglobin 12.3 # Lymphocytes # 1.9 Lymphocytes % 14.6 L Mean Corpuscular Hemoglobin 28.3 L Mean Corpuscular Hemoglobin Concent 31.5 L Mean Corpuscular Volume 89.7 Mean Platelet Volume 12.9 H Monocytes # 1.7 H Monocytes % 12.5 H Neutrophils # 9.1 H Neutrophils % 68.4 Nucleated Red Blood Cells # 0.0 Nucleated Red Blood Cells % 0.0 Platelet Count 242 # Potassium Level 3.7 Red Blood Count 4.35 # Red Cell Distribution Width 15.9 H Sodium Level 150 H White Blood Count 13.2 #H Arterial Blood HCO3 28.4 H Arterial Blood Base Excess 2.7 Arterial Blood Oxygen Saturation 97.2 Jarett Test ACCEPTAB Arterial Blood Gas Puncture Site Right Radial Arterial Blood Carboxyhemoglobin 0.2 Arterial Blood Date Drawn 09/21/2016 5:42:49 AM Arterial Blood Methemoglobin 0.3 Arterial Blood pCO2 (Temp correct) 48.8 H Arterial Blood pH (Temp corrected) 7.383 Arterial Blood pO2 (Temp corrected) 100.0 H Blood Gas A-a O2 Differential 56.6 H Blood Gas Actual Respiration Rate 26 Blood Gas IPAP/EPAP Ratio 15/5 Blood Gas Modality MASK - BIPAP Blood Gas Notified Time 09/21/2016 5:54:33 AM Blood Gas Notified Zeynep NGUYEN [employer]SULTANT Blood Gas Pressure Support 10 Blood Gas Respiration Rate 14.0 Blood Gas Specimen Source Blood arterial Blood Gas Temperature 37.0 FiO2 30.0 Oxyhemoglobin Percent 96.7 Total Hemoglobin 11.8 L Test 09/21/16 08:39 09/21/16 13:11 Bedside Glucose 183 135 Medications Current Medications Ondansetron HCl (Zofran Inj) 4 mg Q6H PRN IV NAUSEA AND/OR VOMITING Last administered on 09/10/16 23:03; Admin Dose 4 MG; Start 09/09/16 at 20:00 Nitroglycerin (Nitroglycerin (Sl Tab) 0.4 Mg) 1 tab Q5M PRN SL CHEST PAIN; Start 09/09/16 at 20:00 Acetaminophen (Tylenol Liquid) 650 mg Q6H PRN PO PAIN LEVEL 1-3 OR FEVER; Start 09/09/16 at 20:00 Morphine Sulfate (morphine) 2 mg Q4H PRN IV PAIN LEVEL 7-10 Last administered on 09/21/16 02:17; Admin Dose 2 MG; Start 09/09/16 at 20:00 Lorazepam (Ativan) 1 mg Q2H PRN IV ANXIETY Last administered on 09/21/16 03:07 ; Admin Dose 1 MG; Start 09/09/16 at 20:00 Glucose (Glutose) 15 gm Q15M PRN PO DECREASED GLUCOSE; Start 09/09/16 at 20:30 Glucose (Glutose) 22.5 gm Q15M PRN PO DECREASED GLUCOSE; Start 09/09/16 at 20: 30 Dextrose (D50w Syringe) 25 ml Q15M PRN IV DECREASED GLUCOSE Last administered on 09/20/16 13:44; Admin Dose 25 ML; Start 09/09/16 at 20:30 Dextrose (D50w Syringe) 50 ml Q15M PRN IV DECREASED GLUCOSE; Start 09/09/16 at 20:30 Glucagon (Glucagen) 1 mg Q15M PRN IM DECREASED GLUCOSE; Start 09/09/16 at 20:30 Glucose (Glutose) 15 gm Q15M PRN BUCCAL DECREASED GLUCOSE; Start 09/09/16 at 20 :30 Famotidine (Pepcid Iv) 20 mg DAILY IV Last administered on 09/21/16 08:37; Admin Dose 20 MG; Start 09/10/16 at 09:00 Aspirin 81 mg 81 mg DAILY PO Last administered on 09/21/16 08:37; Admin Dose 81 MG; Start 09/12/16 at 09:00 Ceftriaxone Sodium (Rocephin) 50 ml @ 100 mls/hr Q24H IVPB Last administered on 09/20/16 16:16; Admin Dose 100 MLS/HR; Start 09/12/16 at 16:00 Insulin Aspart NOVOLOG *MODERATE* ALGORI... Q4 SC Last administered on 08:43; Admin Dose 4 UNIT; Start 09/13/16 at 13:00 Doxycycline Hyclate/Sodium Chloride (Vibramycin/NS) 250 ml @ 250 mls/hr Q12 IVPB Last administered on 09/21/16 08:36; Admin Dose 250 MLS/HR; Start at 15:00 Hydralazine HCl (Apresoline) 10 mg Q4H PRN IV SBP >160 Last administered on 09/21 01:39; Admin Dose 10 MG; Start 09/17/16 at 07:00 Docusate Sodium (Colace Liquid Cup) 100 mg Q12 PO Last administered on 08:37; Admin Dose 100 MG; Start 09/17/16 at 09:00 Metoprolol Tartrate (Lopressor) 50 mg BID PO Last administered on 09/21/16 08: 36; Admin Dose 50 MG; Start 09/19/16 at 21:00 Hydralazine HCl (Apresoline) 25 mg Q8 PO Last administered on 09/21/16 13:12; Admin Dose 25 MG; Start 09/19/16 at 14:00 Haloperidol (Haldol) 2 mg Q4H PRN IM AGITATION Last administered on 09/21/16 01 :35; Admin Dose 2 MG; Start 09/20/16 at 05:30 Insulin Glargine 10 unit 10 unit QAM SC Last administered on 09/21/16 08:41; Admin Dose 10 UNIT; Start 09/20/16 at 09:00 Dextrose (D5W) 1,000 ml @ 75 mls/hr [id number] IV Last administered on 09/21/16 05:16; Admin Dose 75 MLS/HR; Start 09/20/16 at 14:00 Assessment/Plan Additional Assessment/Plan IMPRESSION: 1. Hypoxemic and hypercapnic respiratory failure s/p self-extubation. 2. Acute on chronic kidney injury. 3. Status post anemia with endoscopy showing gastritis 4. Resolving bacteremia RECS: 1. Observe off BiPAP 2. Repeat ABG off BIPAP 3. Resume if clinically deteriorates or worsening mental status ZANA ESTEVES MD Sep 21, 2016 14:01
--- NOTE | 2016-09-21 14:28 | RADRPT ---
PROCEDURE: XR Chest. CLINICAL INDICATION: Shortness of breath. TECHNIQUE: Single frontal view. COMPARISON: 09/20/2016. FINDINGS: The endotracheal tube has been removed. The nasogastric tube and right internal jugular vein cathet er remain in satisfactory position. There is atelectasis at the lung bases, slightly worse than see n previously. The lungs are otherwise clear. The heart size is normal. There are small bilateral pleural effusions, larger than seen previously. There is no pneumothorax. IMPRESSION: 1. Endotracheal tube removed. 2. Nasogastric tube and right IJ catheter in satisfactory position. 3. Atelectasis at the lung bases and bilateral pleural effusions, worse than seen previously. RPTAT: QQ .Trevor Harper MD, MD Date Time Electronically viewed and signed by .Trevor Harper MD, MD on 09/21/2016 14:27 .R/
--- NOTE | 2016-09-21 15:41 | CONS ---
Date/Time of Note Date/Time of Note DATE: 09/21/16 TIME: 15:37 Assessment/Plan Assessment/Plan Additional Assessment/Plan Acute Coronary Syndrome Abnormal EKG Cardiomyopathy likely Ischemic Respiratory failure Hypotension Anemia Thrombocytopenia Renal failure Bacteremia Continue Bipap Continue Antibiotics Continue Metoprolol Continue Insulin Continue Nebs Recommend stress test when clinically more stable prior to discharge Consultation Date/Type/Reason Admit Date/Time Sep 09, 2016 at 19:47 Constitutional: other (OF VENT) Psychological: no complaints Past Medical History Medical History: diabetes Past Surgical History Past Surgical Hx: no surgical history Social History Alcohol Use: none Smoking Status: Former smoker Drug Use: none Exam/Review of Systems Vital Signs Vitals Vital Signs Date Time Temp Pulse Resp B/P Pulse Ox O2 Delivery O2 Flow Rate FiO2 09/21/16 14:00 Nasal Cannula 3.0 09/21/16 13:00 70 21 126/53 100 09/21/16 12:00 97.9 09/21/16 09:20 30 Intake and Output 09/20/16 09/20/16 09/21/16 15:00 23:00 07:00 Intake Total 705 ml 1245 ml 1080 ml Output Total 910 ml 1055 ml 280 ml Balance -205 ml 190 ml 800 ml Exam On bipap Head: atraumatic, normocephalic Respiratory: clear to auscultation Cardiovascular: regular rate and rhythm Gastrointestinal: nl liver, spleen, non-tender, soft Extremities: normal pulses Results Result Diagram: 09/21/16 0335 09/21/16 0335 Results 24 hrs Laboratory Tests Test 09/20/16 16:56 09/20/16 20:14 09/21/16 01:30 09/21/16 03:35 Bedside Glucose 136 151 186 Anion Gap 18 H Basophils # 0.1 Basophils % 0.4 Blood Urea Nitrogen 40 H Calcium Level 8.5 Carbon Dioxide Level 28 Chloride Level 108 Creatinine 1.55 H Eosinophils # 0.3 Eosinophils % 2.6 Glucose Level 158 Hematocrit 39.0 # Hemoglobin 12.3 # Lymphocytes # 1.9 Lymphocytes % 14.6 L Mean Corpuscular Hemoglobin 28.3 L Mean Corpuscular Hemoglobin Concent 31.5 L Mean Corpuscular Volume 89.7 Mean Platelet Volume 12.9 H Monocytes # 1.7 H Monocytes % 12.5 H Neutrophils # 9.1 H Neutrophils % 68.4 Nucleated Red Blood Cells # 0.0 Nucleated Red Blood Cells % 0.0 Platelet Count 242 # Potassium Level 3.7 Red Blood Count 4.35 # Red Cell Distribution Width 15.9 H Sodium Level 150 H White Blood Count 13.2 #H Test 09/21/16 04:33 09/21/16 07:00 09/21/16 08:39 09/21/16 13:11 Bedside Glucose 164 183 135 Arterial Blood HCO3 28.4 H Arterial Blood Base Excess 2.7 Arterial Blood Oxygen Saturation 97.2 Jarett Test ACCEPTAB Arterial Blood Gas Puncture Site Right Radial Arterial Blood Carboxyhemoglobin 0.2 Arterial Blood Date Drawn 09/21/2016 5:42:49 AM Arterial Blood Methemoglobin 0.3 Arterial Blood pCO2 (Temp correct) 48.8 H Arterial Blood pH (Temp corrected) 7.383 Arterial Blood pO2 (Temp corrected) 100.0 H Blood Gas A-a O2 Differential 56.6 H Blood Gas Actual Respiration Rate 26 Blood Gas IPAP/EPAP Ratio 15/5 Blood Gas Modality MASK - BIPAP Blood Gas Notified Time 09/21/2016 5:54:33 AM Blood Gas Notified Zeynep NGUYEN [employer] Blood Gas Pressure Support 10 Blood Gas Respiration Rate 14.0 Blood Gas Specimen Source Blood arterial Blood Gas Temperature 37.0 FiO2 30.0 Oxyhemoglobin Percent 96.7 Total Hemoglobin 11.8 L Medications Medications Current Medications Ondansetron HCl (Zofran Inj) 4 mg Q6H PRN IV NAUSEA AND/OR VOMITING Last administered on 09/10/16 23:03; Admin Dose 4 MG; Start 09/09/16 at 20:00 Nitroglycerin (Nitroglycerin (Sl Tab) 0.4 Mg) 1 tab Q5M PRN SL CHEST PAIN; Start 09/09/16 at 20:00 Acetaminophen (Tylenol Liquid) 650 mg Q6H PRN PO PAIN LEVEL 1-3 OR FEVER; Start 09/09/16 at 20:00 Morphine Sulfate (morphine) 2 mg Q4H PRN IV PAIN LEVEL 7-10 Last administered on 09/21/16 14:22; Admin Dose 2 MG; Start 09/09/16 at 20:00 Lorazepam (Ativan) 1 mg Q2H PRN IV ANXIETY Last administered on 09/21/16 03:07 ; Admin Dose 1 MG; Start 09/09/16 at 20:00 Glucose (Glutose) 15 gm Q15M PRN PO DECREASED GLUCOSE; Start 09/09/16 at 20:30 Glucose (Glutose) 22.5 gm Q15M PRN PO DECREASED GLUCOSE; Start 09/09/16 at 20: 30 Dextrose (D50w Syringe) 25 ml Q15M PRN IV DECREASED GLUCOSE Last administered on 09/20/16 13:44; Admin Dose 25 ML; Start 09/09/16 at 20:30 Dextrose (D50w Syringe) 50 ml Q15M PRN IV DECREASED GLUCOSE; Start 09/09/16 at 20:30 Glucagon (Glucagen) 1 mg Q15M PRN IM DECREASED GLUCOSE; Start 09/09/16 at 20:30 Glucose (Glutose) 15 gm Q15M PRN BUCCAL DECREASED GLUCOSE; Start 09/09/16 at 20 :30 Famotidine (Pepcid Iv) 20 mg DAILY IV Last administered on 09/21/16 08:37; Admin Dose 20 MG; Start 09/10/16 at 09:00 Aspirin 81 mg 81 mg DAILY PO Last administered on 09/21/16 08:37; Admin Dose 81 MG; Start 09/12/16 at 09:00 Ceftriaxone Sodium (Rocephin) 50 ml @ 100 mls/hr Q24H IVPB Last administered on 09/20/16 16:16; Admin Dose 100 MLS/HR; Start 09/12/16 at 16:00 Insulin Aspart NOVOLOG *MODERATE* ALGORI... Q4 SC Last administered on 08:43; Admin Dose 4 UNIT; Start 09/13/16 at 13:00 Doxycycline Hyclate/Sodium Chloride (Vibramycin/NS) 250 ml @ 250 mls/hr Q12 IVPB Last administered on 09/21/16 08:36; Admin Dose 250 MLS/HR; Start at 15:00 Hydralazine HCl (Apresoline) 10 mg Q4H PRN IV SBP >160 Last administered on 09/21 01:39; Admin Dose 10 MG; Start 09/17/16 at 07:00 Docusate Sodium (Colace Liquid Cup) 100 mg Q12 PO Last administered on 08:37; Admin Dose 100 MG; Start 09/17/16 at 09:00 Metoprolol Tartrate (Lopressor) 50 mg BID PO Last administered on 09/21/16 08: 36; Admin Dose 50 MG; Start 09/19/16 at 21:00 Hydralazine HCl (Apresoline) 25 mg Q8 PO Last administered on 09/21/16 13:12; Admin Dose 25 MG; Start 09/19/16 at 14:00 Haloperidol (Haldol) 2 mg Q4H PRN IM AGITATION Last administered on 09/21/16 01 :35; Admin Dose 2 MG; Start 09/20/16 at 05:30 Insulin Glargine 10 unit 10 unit QAM SC Last administered on 09/21/16 08:41; Admin Dose 10 UNIT; Start 09/20/16 at 09:00 Dextrose (D5W) 1,000 ml @ 75 mls/hr [id number] IV Last administered on 09/21/16 05:16; Admin Dose 75 MLS/HR; Start 09/20/16 at 14:00 JEAN CARLOS SALAZAR M.D. Sep 21, 2016 15:41
[2016-09-21] MEDS: CEFTRIAXONE 1 GM/50 ML (PMX) 50 ML IVPB SCH (16:28)
--- NOTE | 2016-09-21 16:56 | CONS ---
Date/Time of Note Date/Time of Note DATE: 09/21/16 TIME: 16:56 Assessment/Plan Assessment/Plan Chief Complaint/Hosp Course Impression and Plan: 1. Severe Iron deficiency anemia: + occult test stool. No signs of GI bleeding presently. S/p EGD with gastritis findings. H/H stable now - monitor CBC daily - if need blood transfusion again, will need EGD sooner 2. Dysphagia: - continue NG feeding 3. s/p Septic shock - 2/2 Ecoli UTI /Bacteremia - improving now, has been off pressors for a few days now. - Continue broad spectrum abx - Continue ICU care for now 4. Acute renal failure r/o CKD- 2/2 to ATN from sepsis - improving now 5. Acute Hypercapnic and Hypoxemic Vent depen Resp failure - s/p self extubation - on BiPAP - Continue Vent mgt per pulm 6. NSTEMI versus elevated trop - CV monitoring. ECHO = EF 45-50 by echo this admit. - Daily aspirin - if need repeat EGD with hemostasis, will need to hold aspirin per cardiology Problems: Consultation Date/Type/Reason Admit Date/Time Sep 09, 2016 at 19:47 Initial Consult Date 09/13/16 Type of Consultation: GI Referring Provider: EMILIANO HENDRICKS 24 HR Interval Summary Free Text/Dictation on BiPAP; alert and awake. Exam/Review of Systems Vital Signs Vitals Vital Signs Date Time Temp Pulse Resp B/P Pulse Ox O2 Delivery O2 Flow Rate FiO2 09/21/16 14:40 89 90 30 09/21/16 14:00 Nasal Cannula 3.0 09/21/16 13:00 21 126/53 09/21/16 12:00 97.9 Intake and Output 09/20/16 09/20/16 09/21/16 15:00 23:00 07:00 Intake Total 705 ml 1245 ml 1080 ml Output Total 910 ml 1055 ml 280 ml Balance -205 ml 190 ml 800 ml Exam Psych: nl mood/affect, no complaints Head: atraumatic, normocephalic Eyes: EOMI, nl conjunctiva, nl lids, nl sclera ENMT: mucosa pink and moist, nl external ears & nose, nl lips & teeth, nl nasal mucosa & septum Neck: non-tender, supple Respiratory: clear to auscultation, normal air movement Cardiovascular: nl pulses, regular rate and rhythm Gastrointestinal: bowel sounds, non-tender, soft Results Result Diagram: 09/21/16 0335 09/21/16 0335 Results 24 hrs Laboratory Tests Test 09/20/16 20:14 09/21/16 01:30 09/21/16 03:35 09/21/16 04:33 Bedside Glucose 151 186 164 Anion Gap 18 H Basophils # 0.1 Basophils % 0.4 Blood Urea Nitrogen 40 H Calcium Level 8.5 Carbon Dioxide Level 28 Chloride Level 108 Creatinine 1.55 H Eosinophils # 0.3 Eosinophils % 2.6 Glucose Level 158 Hematocrit 39.0 # Hemoglobin 12.3 # Lymphocytes # 1.9 Lymphocytes % 14.6 L Mean Corpuscular Hemoglobin 28.3 L Mean Corpuscular Hemoglobin Concent 31.5 L Mean Corpuscular Volume 89.7 Mean Platelet Volume 12.9 H Monocytes # 1.7 H Monocytes % 12.5 H Neutrophils # 9.1 H Neutrophils % 68.4 Nucleated Red Blood Cells # 0.0 Nucleated Red Blood Cells % 0.0 Platelet Count 242 # Potassium Level 3.7 Red Blood Count 4.35 # Red Cell Distribution Width 15.9 H Sodium Level 150 H White Blood Count 13.2 #H Test 09/21/16 07:00 09/21/16 08:39 09/21/16 13:11 Arterial Blood HCO3 28.4 H Arterial Blood Base Excess 2.7 Arterial Blood Oxygen Saturation 97.2 Jarett Test ACCEPTAB Arterial Blood Gas Puncture Site Right Radial Arterial Blood Carboxyhemoglobin 0.2 Arterial Blood Date Drawn 09/21/2016 5:42:49 AM Arterial Blood Methemoglobin 0.3 Arterial Blood pCO2 (Temp correct) 48.8 H Arterial Blood pH (Temp corrected) 7.383 Arterial Blood pO2 (Temp corrected) 100.0 H Blood Gas A-a O2 Differential 56.6 H Blood Gas Actual Respiration Rate 26 Blood Gas IPAP/EPAP Ratio 15/ Blood Gas Modality MASK - BIPAP Blood Gas Notified Time 09/21/2016 5:54:33 AM Blood Gas Notified Zeynep NGUYEN HEAD [employer] WAITRESS Blood Gas Pressure Support 10 Blood Gas Respiration Rate 14.0 Blood Gas Specimen Source Blood arterial Blood Gas Temperature 37.0 FiO2 30.0 Oxyhemoglobin Percent 96.7 Total Hemoglobin 11.8 L Bedside Glucose 183 135 Medications Medications Current Medications Ondansetron HCl (Zofran Inj) 4 mg Q6H PRN IV NAUSEA AND/OR VOMITING Last administered on 09/10/16 23:03; Admin Dose 4 MG; Start 09/09/16 at 20:00 Nitroglycerin (Nitroglycerin (Sl Tab) 0.4 Mg) 1 tab Q5M PRN SL CHEST PAIN; Start 09/09/16 at 20:00 Acetaminophen (Tylenol Liquid) 650 mg Q6H PRN PO PAIN LEVEL 1-3 OR FEVER; Start 09/09/16 at 20:00 Morphine Sulfate (morphine) 2 mg Q4H PRN IV PAIN LEVEL 7-10 Last administered on 09/21/16 14:22; Admin Dose 2 MG; Start 09/09/16 at 20:00 Lorazepam (Ativan) 1 mg Q2H PRN IV ANXIETY Last administered on 09/21/16 03:07 ; Admin Dose 1 MG; Start 09/09/16 at 20:00 Glucose (Glutose) 15 gm Q15M PRN PO DECREASED GLUCOSE; Start 09/09/16 at 20:30 Glucose (Glutose) 22.5 gm Q15M PRN PO DECREASED GLUCOSE; Start 09/09/16 at 20: 30 Dextrose (D50w Syringe) 25 ml Q15M PRN IV DECREASED GLUCOSE Last administered on 09/20/16 13:44; Admin Dose 25 ML; Start 09/09/16 at 20:30 Dextrose (D50w Syringe) 50 ml Q15M PRN IV DECREASED GLUCOSE; Start 09/09/16 at 20:30 Glucagon (Glucagen) 1 mg Q15M PRN IM DECREASED GLUCOSE; Start 09/09/16 at 20:30 Glucose (Glutose) 15 gm Q15M PRN BUCCAL DECREASED GLUCOSE; Start 09/09/16 at 20 :30 Famotidine (Pepcid Iv) 20 mg DAILY IV Last administered on 09/21/16 08:37; Admin Dose 20 MG; Start 09/10/16 at 09:00 Aspirin 81 mg 81 mg DAILY PO Last administered on 09/21/16 08:37; Admin Dose 81 MG; Start 09/12/16 at 09:00 Ceftriaxone Sodium (Rocephin) 50 ml @ 100 mls/hr Q24H IVPB Last administered on 09/21/16 16:28; Admin Dose 100 MLS/HR; Start 09/12/16 at 16:00 Insulin Aspart NOVOLOG *MODERATE* ALGORI... Q4 SC Last administered on 08:43; Admin Dose 4 UNIT; Start 09/13/16 at 13:00 Doxycycline Hyclate/Sodium Chloride (Vibramycin/NS) 250 ml @ 250 mls/hr Q12 IVPB Last administered on 09/21/16 08:36; Admin Dose 250 MLS/HR; Start at 15:00 Hydralazine HCl (Apresoline) 10 mg Q4H PRN IV SBP >160 Last administered on 09/21 01:39; Admin Dose 10 MG; Start 09/17/16 at 07:00 Docusate Sodium (Colace Liquid Cup) 100 mg Q12 PO Last administered on 08:37; Admin Dose 100 MG; Start 09/17/16 at 09:00 Metoprolol Tartrate (Lopressor) 50 mg BID PO Last administered on 09/21/16 08: 36; Admin Dose 50 MG; Start 09/19/16 at 21:00 Hydralazine HCl (Apresoline) 25 mg Q8 PO Last administered on 09/21/16 13:12; Admin Dose 25 MG; Start 09/19/16 at 14:00 Haloperidol (Haldol) 2 mg Q4H PRN IM AGITATION Last administered on 09/21/16 01 :35; Admin Dose 2 MG; Start 09/20/16 at 05:30 Insulin Glargine 10 unit 10 unit QAM SC Last administered on 09/21/16 08:41; Admin Dose 10 UNIT; Start 09/20/16 at 09:00 Dextrose (D5W) 1,000 ml @ 75 mls/hr [id number] IV Last administered on 09/21/16 05:16; Admin Dose 75 MLS/HR; Start 09/20/16 at 14:00 LAURIE BOBBY MD Sep 21, 2016 16:56
--- NOTE | 2016-09-21 17:07 | PN ---
Date/Time of Note Date/Time of Note DATE: 09/21/16 TIME: 17:03 Assessment/Plan VTE Prophylaxis VTE Prophylaxis Intervention: other Lines/Catheters IV Catheter Type (from Nrs): Central Line Central line still needed: Yes Urinary Cath still in place: Yes Reason Cath still needed: other (indicate) Assessment/Plan Chief Complaint/Hosp Course IMPRESSION: 1. Patient has SHALOM BETTER 2. S/P ATN 3. S/P vdrf NOW ON BIPAP 4.. Patient has leukocytosis, anemia, thrombocytopenia. The patient has Escherichia coli bacteremia, E. coli urinary tract infection. 5 hypernatremia plan D5 WATER ck bmp Problems: Subjective 24 Hr Interval Summary Subjective hx not possible: other (ON BIPAP) Gastrointestinal: no complaints Genitourinary: no complaints Exam/Review of Systems Vital Signs Vitals Vital Signs Date Time Temp Pulse Resp B/P Pulse Ox O2 Delivery O2 Flow Rate FiO2 09/21/16 14:40 89 90 30 09/21/16 14:00 Nasal Cannula 3.0 09/21/16 13:00 21 126/53 09/21/16 12:00 97.9 Intake and Output 09/20/16 09/20/16 09/21/16 15:00 23:00 07:00 Intake Total 705 ml 1245 ml 1080 ml Output Total 910 ml 1055 ml 280 ml Balance -205 ml 190 ml 800 ml Exam Respiratory: diminished breath sounds Cardiovascular: regular rate and rhythm Gastrointestinal: soft Musculoskeletal: nl extremities to inspection Results Result Diagram: 09/21/16 0335 09/21/16 0335 Results 24 hrs Laboratory Tests Test 09/20/16 20:14 09/21/16 01:30 09/21/16 03:35 09/21/16 04:33 Bedside Glucose 151 186 164 Anion Gap 18 H Basophils # 0.1 Basophils % 0.4 Blood Urea Nitrogen 40 H Calcium Level 8.5 Carbon Dioxide Level 28 Chloride Level 108 Creatinine 1.55 H Eosinophils # 0.3 Eosinophils % 2.6 Glucose Level 158 Hematocrit 39.0 # Hemoglobin 12.3 # Lymphocytes # 1.9 Lymphocytes % 14.6 L Mean Corpuscular Hemoglobin 28.3 L Mean Corpuscular Hemoglobin Concent 31.5 L Mean Corpuscular Volume 89.7 Mean Platelet Volume 12.9 H Monocytes # 1.7 H Monocytes % 12.5 H Neutrophils # 9.1 H Neutrophils % 68.4 Nucleated Red Blood Cells # 0.0 Nucleated Red Blood Cells % 0.0 Platelet Count 242 # Potassium Level 3.7 Red Blood Count 4.35 # Red Cell Distribution Width 15.9 H Sodium Level 150 H White Blood Count 13.2 #H Test 09/21/16 07:00 09/21/16 08:39 09/21/16 13:11 Arterial Blood HCO3 28.4 H Arterial Blood Base Excess 2.7 Arterial Blood Oxygen Saturation 97.2 Jarett Test ACCEPTAB Arterial Blood Gas Puncture Site Right Radial Arterial Blood Carboxyhemoglobin 0.2 Arterial Blood Date Drawn 09/21/2016 5:42:49 AM Arterial Blood Methemoglobin 0.3 Arterial Blood pCO2 (Temp correct) 48.8 H Arterial Blood pH (Temp corrected) 7.383 Arterial Blood pO2 (Temp corrected) 100.0 H Blood Gas A-a O2 Differential 56.6 H Blood Gas Actual Respiration Rate 26 Blood Gas IPAP/EPAP Ratio 15/5 Blood Gas Modality MASK - BIPAP Blood Gas Notified Time 09/21/2016 5:54:33 AM Blood Gas Notified Zeynep NGUYEN CLIMATE CHANGE RISK ASSESSOR Blood Gas Pressure Support 10 Blood Gas Respiration Rate 14.0 Blood Gas Specimen Source Blood arterial Blood Gas Temperature 37.0 FiO2 30.0 Oxyhemoglobin Percent 96.7 Total Hemoglobin 11.8 L Bedside Glucose 183 135 Medications Medications Current Medications Ondansetron HCl (Zofran Inj) 4 mg Q6H PRN IV NAUSEA AND/OR VOMITING Last administered on 09/10/16 23:03; Admin Dose 4 MG; Start 09/09/16 at 20:00 Nitroglycerin (Nitroglycerin (Sl Tab) 0.4 Mg) 1 tab Q5M PRN SL CHEST PAIN; Start 09/09/16 at 20:00 Acetaminophen (Tylenol Liquid) 650 mg Q6H PRN PO PAIN LEVEL 1-3 OR FEVER; Start 09/09/16 at 20:00 Morphine Sulfate (morphine) 2 mg Q4H PRN IV PAIN LEVEL 7-10 Last administered on 09/21/16 14:22; Admin Dose 2 MG; Start 09/09/16 at 20:00 Lorazepam (Ativan) 1 mg Q2H PRN IV ANXIETY Last administered on 09/21/16 03:07 ; Admin Dose 1 MG; Start 09/09/16 at 20:00 Glucose (Glutose) 15 gm Q15M PRN PO DECREASED GLUCOSE; Start 09/09/16 at 20:30 Glucose (Glutose) 22.5 gm Q15M PRN PO DECREASED GLUCOSE; Start 09/09/16 at 20: 30 Dextrose (D50w Syringe) 25 ml Q15M PRN IV DECREASED GLUCOSE Last administered on 09/20/16 13:44; Admin Dose 25 ML; Start 09/09/16 at 20:30 Dextrose (D50w Syringe) 50 ml Q15M PRN IV DECREASED GLUCOSE; Start 09/09/16 at 20:30 Glucagon (Glucagen) 1 mg Q15M PRN IM DECREASED GLUCOSE; Start 09/09/16 at 20:30 Glucose (Glutose) 15 gm Q15M PRN BUCCAL DECREASED GLUCOSE; Start 09/09/16 at 20 :30 Famotidine (Pepcid Iv) 20 mg DAILY IV Last administered on 09/21/16 08:37; Admin Dose 20 MG; Start 09/10/16 at 09:00 Aspirin 81 mg 81 mg DAILY PO Last administered on 09/21/16 08:37; Admin Dose 81 MG; Start 09/12/16 at 09:00 Ceftriaxone Sodium (Rocephin) 50 ml @ 100 mls/hr Q24H IVPB Last administered on 09/21/16 16:28; Admin Dose 100 MLS/HR; Start 09/12/16 at 16:00 Insulin Aspart NOVOLOG *MODERATE* ALGORI... Q4 SC Last administered on 08:43; Admin Dose 4 UNIT; Start 09/13/16 at 13:00 Doxycycline Hyclate/Sodium Chloride (Vibramycin/NS) 250 ml @ 250 mls/hr Q12 IVPB Last administered on 09/21/16 08:36; Admin Dose 250 MLS/HR; Start at 15:00 Hydralazine HCl (Apresoline) 10 mg Q4H PRN IV SBP >160 Last administered on 09/21 01:39; Admin Dose 10 MG; Start 09/17/16 at 07:00 Docusate Sodium (Colace Liquid Cup) 100 mg Q12 PO Last administered on 08:37; Admin Dose 100 MG; Start 09/17/16 at 09:00 Metoprolol Tartrate (Lopressor) 50 mg BID PO Last administered on 09/21/16 08: 36; Admin Dose 50 MG; Start 09/19/16 at 21:00 Hydralazine HCl (Apresoline) 25 mg Q8 PO Last administered on 09/21/16 13:12; Admin Dose 25 MG; Start 09/19/16 at 14:00 Haloperidol (Haldol) 2 mg Q4H PRN IM AGITATION Last administered on 09/21/16 01 :35; Admin Dose 2 MG; Start 09/20/16 at 05:30 Insulin Glargine 10 unit 10 unit QAM SC Last administered on 09/21/16 08:41; Admin Dose 10 UNIT; Start 09/20/16 at 09:00 Dextrose (D5W) 1,000 ml @ 75 mls/hr [id number] IV Last administered on 09/21/16 05:16; Admin Dose 75 MLS/HR; Start 09/20/16 at 14:00 QUITA SCHOFIELD MD Sep 21, 2016 17:06
[2016-09-21 20:34] LABS: AADO2 Arterial 62.4 mmHg (7.0-24.0); Allen Test ACCEPTAB; Arterial Base Excess 2.1 mmol/L (-3.0-3); Arterial Fraction of Oxyhgb 96.1 % (93.0-99.0); Arterial HCO3 27.4 mmol/L (22.0-26.0); Arterial MetHb 0.5 % (0.0-1.5); Arterial Total Hemglobin 12.7 g/dl (12.0-18.0); Blood Gas IEPAP 15/5
--- NOTE | 2016-09-21 22:39 | CONS ---
Date/Time of Note Date/Time of Note DATE: 09/21/16 TIME: 22:37 Assessment/Plan Assessment/Plan Chief Complaint/Hosp Course IMPRESSION: thrombocytopenia in pt with severe sepsis, exposed to multiple meds with pos thrombocytopenic effect, including VANCO, ZOSYN, HEPARIN,CEFAZOLIN NO EVIDENCE DIC cont to monitor blood count closely transfuse if platelet [place] less [place] [id number], considering severe sepsis HIPA- NEG PLATELET COUNT IMPROVING Leukocytosis. REACTIVE MONITOR IMPROVING Anemia. C/W ACD MONITOR BLOOD COUNT CLOSELY TRANSFUSE NEEDED Severe Sepsis with septic shock 2/2 Ecoli UTI /Bacteremia Acute renal failure - 2/2 to ATN from sepsis Type II DM - Hyperglycemic on D5W Metabolic / Lactic acidosis 2/ #1 Acute resp failure now ventilator dependent NSTEMI versus demand ischemia Positive troponin, assess significance, assess for true acute coronary syndrome. Metabolic acidosis respiratory failure, vent dependent incomplete database Thank you for allowing me to take part in the care of this patient. I will continue to follow along very closely with you. Further recommendations will be made as the patient progresses through her inpatient hospital clinical course. Problems: Consultation Date/Type/Reason Admit Date/Time Sep 09, 2016 at 19:47 Initial Consult Date 09/13/16 Type of Consultation: hemeon Referring Provider: EMILIANO HENDRICKS 24 HR Interval Summary Free Text/Dictation Remains on BiPAP; alert and awake. count looks good post PRBC Exam/Review of Systems Vital Signs Vitals Vital Signs Date Time Temp Pulse Resp B/P Pulse Ox O2 Delivery O2 Flow Rate FiO2 09/21/16 20:00 78 09/21/16 19:30 100 30 09/21/16 17:30 20 137/65 BIPAP 09/21/16 16:00 98.1 09/21/16 14:00 3.0 Intake and Output 09/20/16 09/20/16 09/21/16 15:00 23:00 07:00 Intake Total 705 ml 1245 ml 1080 ml Output Total 910 ml 1055 ml 280 ml Balance -205 ml 190 ml 800 ml Exam GENERAL: Fragile, elderly woman who is lethargic, comfortable on BiPAP. HEENT: Head atraumatic, normocephalic. Sclerae anicteric. Buccal mucosa dry. NECK: Supple, trachea midline. CHEST: Rise symmetrical. Breath sounds diminished to bases. HEART: S1, S2. ABDOMEN: Soft, bowel tones present. EXTREMITIES: Without cyanosis. Results Result Diagram: 09/21/16 0335 09/21/16 0335 Results 24 hrs Laboratory Tests Test 09/21/16 01:30 09/21/16 03:35 09/21/16 04:33 09/21/16 07:00 Bedside Glucose 186 164 Anion Gap 18 H Basophils # 0.1 Basophils % 0.4 Blood Urea Nitrogen 40 H Calcium Level 8.5 Carbon Dioxide Level 28 Chloride Level 108 Creatinine 1.55 H Eosinophils # 0.3 Eosinophils % 2.6 Glucose Level 158 Hematocrit 39.0 # Hemoglobin 12.3 # Lymphocytes # 1.9 Lymphocytes % 14.6 L Mean Corpuscular Hemoglobin 28.3 L Mean Corpuscular Hemoglobin Concent 31.5 L Mean Corpuscular Volume 89.7 Mean Platelet Volume 12.9 H Monocytes # 1.7 H Monocytes % 12.5 H Neutrophils # 9.1 H Neutrophils % 68.4 Nucleated Red Blood Cells # 0.0 Nucleated Red Blood Cells % 0.0 Platelet Count 242 # Potassium Level 3.7 Red Blood Count 4.35 # Red Cell Distribution Width 15.9 H Sodium Level 150 H White Blood Count 13.2 #H Arterial Blood HCO3 28.4 H Arterial Blood Base Excess 2.7 Arterial Blood Oxygen Saturation 97.2 Jarett Test ACCEPTAB Arterial Blood Gas Puncture Site Right Radial Arterial Blood Carboxyhemoglobin 0.2 Arterial Blood Date Drawn 09/21/2016 5:42:49 AM Arterial Blood Methemoglobin 0.3 Arterial Blood pCO2 (Temp correct) 48.8 H Arterial Blood pH (Temp corrected) 7.383 Arterial Blood pO2 (Temp corrected) 100.0 H Blood Gas A-a O2 Differential 56.6 H Blood Gas Actual Respiration Rate 26 Blood Gas IPAP/EPAP Ratio 15/5 Blood Gas Modality MASK - BIPAP Blood Gas Notified Time 09/21/2016 5:54:33 AM Blood Gas Notified Zeynep NGUYEN ENCAPSULATOR Blood Gas Pressure Support 10 Blood Gas Respiration Rate 14.0 Blood Gas Specimen Source Blood arterial Blood Gas Temperature 37.0 FiO2 30.0 Oxyhemoglobin Percent 96.7 Total Hemoglobin 11.8 L Test 09/21/16 08:39 09/21/16 13:11 09/21/16 17:00 09/21/16 17:09 Bedside Glucose 183 135 107 Arterial Blood HCO3 27.4 H Arterial Blood Base Excess 2.1 Arterial Blood Oxygen Saturation 97.6 Jarett Test ACCEPTAB Arterial Blood Gas Puncture Site Right Radial Arterial Blood Carboxyhemoglobin 1.0 Arterial Blood Date Drawn 09/21/2016 8:20:16 PM Arterial Blood Methemoglobin 0.5 Arterial Blood pCO2 (Temp correct) 45.3 H Arterial Blood pH (Temp corrected) 7.399 Arterial Blood pO2 (Temp corrected) 98.3 H Blood Gas A-a O2 Differential 62.4 H Blood Gas Actual Respiration Rate 17 Blood Gas IPAP/EPAP Ratio 02/12 Blood Gas Modality mask-bipap Blood Gas Notified Time 09/21/2016 8:33:56 PM Blood Gas Notified Whom jmd Blood Gas Respiration Rate 14.0 Blood Gas Specimen Source Blood arterial Blood Gas Temperature 37.0 FiO2 30.0 Oxyhemoglobin Percent 96.1 Total Hemoglobin 12.7 Test 09/21/16 20:37 Bedside Glucose 153 Medications Medications Current Medications Ondansetron HCl (Zofran Inj) 4 mg Q6H PRN IV NAUSEA AND/OR VOMITING Last administered on 09/10/16 23:03; Admin Dose 4 MG; Start 09/09/16 at 20:00 Nitroglycerin (Nitroglycerin (Sl Tab) 0.4 Mg) 1 tab Q5M PRN SL CHEST PAIN; Start 09/09/16 at 20:00 Acetaminophen (Tylenol Liquid) 650 mg Q6H PRN PO PAIN LEVEL 1-3 OR FEVER; Start 09/09/16 at 20:00 Morphine Sulfate (morphine) 2 mg Q4H PRN IV PAIN LEVEL 7-10 Last administered on 09/21/16 14:22; Admin Dose 2 MG; Start 09/09/16 at 20:00 Lorazepam (Ativan) 1 mg Q2H PRN IV ANXIETY Last administered on 09/21/16 21:38 ; Admin Dose 1 MG; Start 09/09/16 at 20:00 Glucose (Glutose) 15 gm Q15M PRN PO DECREASED GLUCOSE; Start 09/09/16 at 20:30 Glucose (Glutose) 22.5 gm Q15M PRN PO DECREASED GLUCOSE; Start 09/09/16 at 20: 30 Dextrose (D50w Syringe) 25 ml Q15M PRN IV DECREASED GLUCOSE Last administered on 09/20/16 13:44; Admin Dose 25 ML; Start 09/09/16 at 20:30 Dextrose (D50w Syringe) 50 ml Q15M PRN IV DECREASED GLUCOSE; Start 09/09/16 at 20:30 Glucagon (Glucagen) 1 mg Q15M PRN IM DECREASED GLUCOSE; Start 09/09/16 at 20:30 Glucose (Glutose) 15 gm Q15M PRN BUCCAL DECREASED GLUCOSE; Start 09/09/16 at 20 :30 Famotidine (Pepcid Iv) 20 mg DAILY IV Last administered on 09/21/16 08:37; Admin Dose 20 MG; Start 09/10/16 at 09:00 Aspirin 81 mg 81 mg DAILY PO Last administered on 09/21/16 08:37; Admin Dose 81 MG; Start 09/12/16 at 09:00 Ceftriaxone Sodium (Rocephin) 50 ml @ 100 mls/hr Q24H IVPB Last administered on 09/21/16 16:28; Admin Dose 100 MLS/HR; Start 09/12/16 at 16:00 Insulin Aspart NOVOLOG *MODERATE* ALGORI... Q4 SC Last administered on 20:39; Admin Dose 2 UNIT; Start 09/13/16 at 13:00 Doxycycline Hyclate/Sodium Chloride (Vibramycin/NS) 250 ml @ 250 mls/hr Q12 IVPB Last administered on 09/21/16 20:34; Admin Dose 250 MLS/HR; Start at 15:00 Hydralazine HCl (Apresoline) 10 mg Q4H PRN IV SBP >160 Last administered on 09/21 01:39; Admin Dose 10 MG; Start 09/17/16 at 07:00 Docusate Sodium (Colace Liquid Cup) 100 mg Q12 PO Last administered on 20:36; Admin Dose 100 MG; Start 09/17/16 at 09:00 Metoprolol Tartrate (Lopressor) 50 mg BID PO Last administered on 09/21/16 20: 36; Admin Dose 50 MG; Start 09/19/16 at 21:00 Hydralazine HCl (Apresoline) 25 mg Q8 PO Last administered on 09/21/16 21:38; Admin Dose 25 MG; Start 09/19/16 at 14:00 Haloperidol (Haldol) 2 mg Q4H PRN IM AGITATION Last administered on 09/21/16 20 :36; Admin Dose 2 MG; Start 09/20/16 at 05:30 Insulin Glargine 10 unit 10 unit QAM SC Last administered on 09/21/16 08:41; Admin Dose 10 UNIT; Start 09/20/16 at 09:00 Dextrose (D5W) 1,000 ml @ 75 mls/hr [id number] IV Last administered on 09/21/16 05:16; Admin Dose 75 MLS/HR; Start 09/20/16 at 14:00 JEFF FRANK MD Sep 21, 2016 22:39
[2016-09-22] VITALS (44 sets, daily range): BP systolic 110–185; BP diastolic 52–99; PULSE 71–100; RESP 17–36
[2016-09-22] MEDS: HALOPERIDOL 5 MG INJ IM PRN ×2 (00:45→05:17)
[2016-09-22] MEDS: INSULIN ASPART [NOVOLOG] 3 ML PEN SC SCH ×6 (01:00→20:43)
[2016-09-22] MEDS: LORAZEPAM 2 MG INJ IV PRN ×5 (02:56→16:46)
[2016-09-22] MEDS: DEXTROSE 5% 1,000 ML IV SCH (03:02)
[2016-09-22 04:59] LABS: ADD SCAN DIFF NO
[2016-09-22 05:03] LABS: Allen Test ACCEPTAB; Arterial Base Excess 1.4 mmol/L (-3.0-3); Arterial COHb 0.1 % (0.0-3.0); Arterial Fraction of Oxyhgb 96.7 % (93.0-99.0); Arterial HCO3 26.1 mmol/L (22.0-26.0); Arterial MetHb 0.4 % (0.0-1.5); Arterial Total Hemglobin 11.9 g/dl (12.0-18.0); Blood Gas IEPAP 15/5; MODE MASK-BIPAP
[2016-09-22 05:18] LABS: BASOPHIL # 0.1 10^3/ul (0.0-0.1); BASOPHILS % 0.7 % (0.0-2.0); EOSINOPHILS # 0.4 10^3/ul (0.0-0.5); EOSINOPHILS % 4.3 % (0.0-7.0); HEMATOCRIT 36.2 % (37.0-47.0); HEMOGLOBIN 11.5 g/dl (12.0-16.0); LYMPHOCYTES # 2.1 10^3/ul (0.8-2.9); LYMPHOCYTES % 23.3 % (15.0-51.0); MEAN CORPUSCULAR HEMOGLOBIN 28.6 pg (29.0-33.0); MEAN CORPUSCULAR HGB CONC 31.8 g/dl (32.0-37.0); MEAN PLATELET VOLUME 12.9 fl (7.4-10.4); MONOCYTE # 1.1 10^3/ul (0.3-0.9); MONOCYTES % 12.5 % (0.0-11.0); NEUTROPHIL # 5.3 10^3/ul (1.6-7.5); NEUTROPHILS % 58.6 % (39.0-77.0); PLATELET COUNT 241 10^3/UL (140-415); RED BLOOD COUNT 4.02 10^6/ul (4.20-5.40); RED CELL DISTRIBUTION WIDTH 16.1 % (11.5-14.5)
[2016-09-22 05:27] LABS: POTASSIUM 4.1 mmol/L (3.5-5.1)
[2016-09-22 05:30] LABS: CREATININE 1.3 mg/dl (0.44-1.00)
[2016-09-22 05:31] LABS: CALCIUM 8.5 mg/dl (8.4-10.2)
--- NOTE | 2016-09-22 08:49 | PN ---
Date/Time of Note Date/Time of Note DATE: 09/22/16 TIME: 08:43 Assessment/Plan Lines/Catheters IV Catheter Type (from [facility]): Central Line Urinary Cath still in place: Yes Assessment/Plan Assessment/Plan 1. s/p Septic shock - 2/2 Ecoli UTI /Bacteremia - improving now, has been off pressors for a few days now. - Continue broad spectrum abx / Appreciate ID consult, f/u rec's - Continue ICU care for now 2. Acute renal failure r/o CKD- 2/2 to ATN from sepsis - improving now - monitor UO, Cr, f/u renal rec's 3. Type II DM - controlled on SSI - SSI only for now 4. Metabolic / Lactic acidosis 2/2 #1: resolved 5. Acute Hypercapnic and Hypoxemic Vent depen Resp failure - s/p self extubation - on BiPAP - Continue Vent mgt per pulm 6. NSTEMI versus elevated trop - CV monitoring. ECHO = EF 45-50 by echo this admit. - Daily aspirin, may need further cardiac intervention when more medically stable - continue BB per CV team 7. new onset thrombocytopenia: resolved now (38 -> 70 -> 137 -> 170 ->185 -> 242 ->241) - per heme Onc does not appear to be DIC. possibly is sec to sepsis and per per Heme/Onc, pt was also exposed to multiple meds with pos thrombocytopenic effect, including VANCO, ZOSYN, HEPARIN,CEFAZOLIN. HIT antibody negative/ s/p FFP and platelet transfusion. - monitor for now, transfuse if plts < 20,000 per heme/Onc rec's. 8. Severe Iron deficiency: + occult test stool. No signs of GI bleeding presently. S/p EGD with gastritis findings only. s/p pRBC transfusion yesterday , H/H stable now - monitor CBC daily - f/u GI rec's, monitor PROPHYLAXIS: Pepcid / SCDS Exam/Review of Systems Vital Signs Vitals Vital Signs Date Time Temp Pulse Resp B/P Pulse Ox O2 Delivery O2 Flow Rate FiO2 09/22/16 08:00 98.0 82 24 125/56 99 BIPAP 09/22/16 05:34 30 09/21/16 14:00 3.0 Intake and Output 09/21/16 09/21/16 09/22/16 15:00 23:00 07:00 Intake Total 1275 ml 1282.5 ml 1120 ml Output Total 470 ml 380 ml 615 ml Balance 805 ml 902.5 ml 505 ml Exam Constitutional: frail, on BiPAP presently Head: normocephalic Eyes: PERRL, icteric ENMT: intubated Respiratory: clear to auscultation, diminished breath sounds Cardiovascular: regular rate and rhythm, No murmurs/extra sounds Gastrointestinal: bowel sounds, distended, other (large periumbilical hernia), soft Genitourinary - Female: other (montoya draining clear urine) Extremities: No edema Neurological: No nl mental status Results Result Diagram: 09/22/16 0305 09/22/16 0305 Results 24 hrs Laboratory Tests Test 09/21/16 13:11 09/21/16 17:00 09/21/16 17:09 09/21/16 20:37 Bedside Glucose 135 107 153 Arterial Blood HCO3 27.4 H Arterial Blood Base Excess 2.1 Arterial Blood Oxygen Saturation 97.6 Jarett Test ACCEPTAB Arterial Blood Gas Puncture Site Right Radial Arterial Blood Carboxyhemoglobin 1.0 Arterial Blood Date Drawn 09/21/2016 8:20:16 PM Arterial Blood Methemoglobin 0.5 Arterial Blood pCO2 (Temp correct) 45.3 H Arterial Blood pH (Temp corrected) 7.399 Arterial Blood pO2 (Temp corrected) 98.3 H Blood Gas A-a O2 Differential 62.4 H Blood Gas Actual Respiration Rate 17 Blood Gas IPAP/EPAP Ratio 15/ Blood Gas Modality mask-bipap Blood Gas Notified Time 09/21/2016 8:33:56 PM Blood Gas Notified Whom jmd Blood Gas Respiration Rate 14.0 Blood Gas Specimen Source Blood arterial Blood Gas Temperature 37.0 FiO2 30.0 Oxyhemoglobin Percent 96.1 Total Hemoglobin 12.7 Test 09/22/16 00:36 09/22/16 03:05 09/22/16 05:00 09/22/16 05:12 Bedside Glucose 134 188 Anion Gap 16 Basophils # 0.1 Basophils % 0.7 Blood Urea Nitrogen 39 H Calcium Level 8.5 Carbon Dioxide Level 28 Chloride Level 107 Creatinine 1.30 H Eosinophils # 0.4 Eosinophils % 4.3 Glucose Level 171 Hematocrit 36.2 L Hemoglobin 11.5 L Lymphocytes # 2.1 Lymphocytes % 23.3 Mean Corpuscular Hemoglobin 28.6 L Mean Corpuscular Hemoglobin Concent 31.8 L Mean Corpuscular Volume 90.0 Mean Platelet Volume 12.9 H Monocytes # 1.1 H Monocytes % 12.5 H Neutrophils # 5.3 Neutrophils % 58.6 Nucleated Red Blood Cells # 0.0 Nucleated Red Blood Cells % 0.0 Platelet Count 241 Potassium Level 4.1 Red Blood Count 4.02 L Red Cell Distribution Width 16.1 H Sodium Level 147 H White Blood Count 9.0 # Arterial Blood HCO3 26.1 H Arterial Blood Base Excess 1.4 Arterial Blood Oxygen Saturation 97.2 Jarett Test ACCEPTAB Arterial Blood Gas Puncture Site Right Radial Arterial Blood Carboxyhemoglobin 0.1 Arterial Blood Date Drawn 09/22/2016 4:43:51 AM Arterial Blood Methemoglobin 0.4 Arterial Blood pCO2 (Temp correct) 41.7 Arterial Blood pH (Temp corrected) 7.414 Arterial Blood pO2 (Temp corrected) 94.8 H Blood Gas Actual Respiration Rate 20 Blood Gas Critical Value Read Back KATY LOPEZ Blood Gas IPAP/EPAP Ratio 02/12 Blood Gas Modality MASK-BIPAP Blood Gas Notified Time 09/22/2016 5:02:38 AM Blood Gas Notified Whom JMD Blood Gas Respiration Rate 14.0 Blood Gas Specimen Source Blood arterial Blood Gas Temperature 37.0 FiO2 20.0 Oxyhemoglobin Percent 96.7 Total Hemoglobin 11.9 L Medications Medications Current Medications Ondansetron HCl (Zofran Inj) 4 mg Q6H PRN IV NAUSEA AND/OR VOMITING Last administered on 09/10/16 23:03; Admin Dose 4 MG; Start 09/09/16 at 20:00 Nitroglycerin (Nitroglycerin (Sl Tab) 0.4 Mg) 1 tab Q5M PRN SL CHEST PAIN; Start 09/09/16 at 20:00 Acetaminophen (Tylenol Liquid) 650 mg Q6H PRN PO PAIN LEVEL 1-3 OR FEVER; Start 09/09/16 at 20:00 Morphine Sulfate (morphine) 2 mg Q4H PRN IV PAIN LEVEL 7-10 Last administered on 09/21/16 23:49; Admin Dose 2 MG; Start 09/09/16 at 20:00 Lorazepam (Ativan) 1 mg Q2H PRN IV ANXIETY Last administered on 09/22/16 05:57 ; Admin Dose 1 MG; Start 09/09/16 at 20:00 Glucose (Glutose) 15 gm Q15M PRN PO DECREASED GLUCOSE; Start 09/09/16 at 20:30 Glucose (Glutose) 22.5 gm Q15M PRN PO DECREASED GLUCOSE; Start 09/09/16 at 20: 30 Dextrose (D50w Syringe) 25 ml Q15M PRN IV DECREASED GLUCOSE Last administered on 09/20/16 13:44; Admin Dose 25 ML; Start 09/09/16 at 20:30 Dextrose (D50w Syringe) 50 ml Q15M PRN IV DECREASED GLUCOSE; Start 09/09/16 at 20:30 Glucagon (Glucagen) 1 mg Q15M PRN IM DECREASED GLUCOSE; Start 09/09/16 at 20:30 Glucose (Glutose) 15 gm Q15M PRN BUCCAL DECREASED GLUCOSE; Start 09/09/16 at 20 :30 Famotidine (Pepcid Iv) 20 mg DAILY IV Last administered on 09/21/16 08:37; Admin Dose 20 MG; Start 09/10/16 at 09:00 Aspirin 81 mg 81 mg DAILY PO Last administered on 09/21/16 08:37; Admin Dose 81 MG; Start 09/12/16 at 09:00 Ceftriaxone Sodium (Rocephin) 50 ml @ 100 mls/hr Q24H IVPB Last administered on 09/21/16 16:28; Admin Dose 100 MLS/HR; Start 09/12/16 at 16:00 Insulin Aspart NOVOLOG *MODERATE* ALGORI... Q4 SC Last administered on 05:15; Admin Dose 4 UNIT; Start 09/13/16 at 13:00 Doxycycline Hyclate/Sodium Chloride (Vibramycin/NS) 250 ml @ 250 mls/hr Q12 IVPB Last administered on 09/21/16 20:34; Admin Dose 250 MLS/HR; Start at 15:00 Hydralazine HCl (Apresoline) 10 mg Q4H PRN IV SBP >160 Last administered on 09/21 01:39; Admin Dose 10 MG; Start 09/17/16 at 07:00 Docusate Sodium (Colace Liquid Cup) 100 mg Q12 PO Last administered on 20:36; Admin Dose 100 MG; Start 09/17/16 at 09:00 Metoprolol Tartrate (Lopressor) 50 mg BID PO Last administered on 09/21/16 20: 36; Admin Dose 50 MG; Start 09/19/16 at 21:00 Hydralazine HCl (Apresoline) 25 mg Q8 PO Last administered on 09/22/16 05:18; Admin Dose 25 MG; Start 09/19/16 at 14:00 Haloperidol (Haldol) 2 mg Q4H PRN IM AGITATION Last administered on 09/22/16 05 :17; Admin Dose 2 MG; Start 09/20/16 at 05:30 Insulin Glargine 10 unit 10 unit QAM SC Last administered on 09/21/16 08:41; Admin Dose 10 UNIT; Start 09/20/16 at 09:00 Dextrose (D5W) 1,000 ml @ 75 mls/hr [id number] IV Last administered on 09/22/16 03:02; Admin Dose 75 MLS/HR; Start 09/20/16 at 14:00 CHAD HERNANDEZ MD Sep 22, 2016 08:49
[2016-09-22] MEDS: METOPROLOL 50 MG TAB PO SCH ×2 (09:14→20:35)
[2016-09-22] MEDS: INSULIN GLARGINE [LANtus] 3 ML PEN SC SCH (09:24)
[2016-09-22] MEDS: DOXYCYCLINE 100 MG in SOD CHLORIDE 0.9% 250 ML IVPB SCH ×2 (10:37→20:23)
[2016-09-22] MEDS: FAMOTIDINE 20 MG INJ IV SCH (10:37)
[2016-09-22] MEDS: DOCUSATE SODIUM 10 MG/ML (10ML CUP) PO SCH ×2 (10:37→20:33)
[2016-09-22] MEDS: ASPIRIN 81 MG TAB PO SCH (10:37)
--- NOTE | 2016-09-22 13:38 | CONS ---
Date/Time of Note Date/Time of Note DATE: 09/22/16 TIME: 13:33 Consult Date/Type/Reason Admit Date/Time Sep 09, 2016 at 19:47 Initial Consult Date 09/13/16 Type of Consultation: Pulm Ordering Provider: EMILIANO HENDRICKS Subjective Did not tolerate being off BiPAP. Increased work of breathing with no gas exchange issues. Objective Vital Signs Date Time Temp Pulse Resp B/P Pulse Ox O2 Delivery O2 Flow Rate FiO2 09/22/16 12:00 88 100 30 09/22/16 11:00 36 159/86 BIPAP 09/22/16 08:00 98.0 09/21/16 14:00 3.0 Intake and Output 09/21/16 09/21/16 09/22/16 15:00 23:00 07:00 Intake Total 1275 ml 1282.5 ml 1120 ml Output Total 470 ml 380 ml 615 ml Balance 805 ml 902.5 ml 505 ml HEENT: Neck supple; no JVD; no LAD; BiPAP in place CVS: RRR, S1 and S2 CHEST: Clear ABD: Soft, NT, + BS EXT: No c/c/e Results/Medications Result Diagram: 09/22/16 0305 09/22/16 0305 Results 24 hrs Laboratory Tests Test 09/21/16 17:00 09/21/16 17:09 09/21/16 20:37 09/22/16 00:36 Arterial Blood HCO3 27.4 H Arterial Blood Base Excess 2.1 Arterial Blood Oxygen Saturation 97.6 Jarett Test ACCEPTAB Arterial Blood Gas Puncture Site Right Radial Arterial Blood Carboxyhemoglobin 1.0 Arterial Blood Date Drawn 09/21/2016 8:20:16 PM Arterial Blood Methemoglobin 0.5 Arterial Blood pCO2 (Temp correct) 45.3 H Arterial Blood pH (Temp corrected) 7.399 Arterial Blood pO2 (Temp corrected) 98.3 H Blood Gas A-a O2 Differential 62.4 H Blood Gas Actual Respiration Rate 17 Blood Gas IPAP/EPAP Ratio 15 Blood Gas Modality mask-bipap Blood Gas Notified Time 09/21/2016 8:33:56 PM Blood Gas Notified Whom jmd Blood Gas Respiration Rate 14.0 Blood Gas Specimen Source Blood arterial Blood Gas Temperature 37.0 FiO2 30.0 Oxyhemoglobin Percent 96.1 Total Hemoglobin 12.7 Bedside Glucose 107 153 134 Test 09/22/16 03:05 09/22/16 05:00 09/22/16 05:12 09/22/16 09:15 Anion Gap 16 Basophils # 0.1 Basophils % 0.7 Blood Urea Nitrogen 39 H Calcium Level 8.5 Carbon Dioxide Level 28 Chloride Level 107 Creatinine 1.30 H Eosinophils # 0.4 Eosinophils % 4.3 Glucose Level 171 Hematocrit 36.2 L Hemoglobin 11.5 L Lymphocytes # 2.1 Lymphocytes % 23.3 Mean Corpuscular Hemoglobin 28.6 L Mean Corpuscular Hemoglobin Concent 31.8 L Mean Corpuscular Volume 90.0 Mean Platelet Volume 12.9 H Monocytes # 1.1 H Monocytes % 12.5 H Neutrophils # 5.3 Neutrophils % 58.6 Nucleated Red Blood Cells # 0.0 Nucleated Red Blood Cells % 0.0 Platelet Count 241 Potassium Level 4.1 Red Blood Count 4.02 L Red Cell Distribution Width 16.1 H Sodium Level 147 H White Blood Count 9.0 # Arterial Blood HCO3 26.1 H Arterial Blood Base Excess 1.4 Arterial Blood Oxygen Saturation 97.2 Jarett Test ACCEPTAB Arterial Blood Gas Puncture Site Right Radial Arterial Blood Carboxyhemoglobin 0.1 Arterial Blood Date Drawn 09/22/2016 4:43:51 AM Arterial Blood Methemoglobin 0.4 Arterial Blood pCO2 (Temp correct) 41.7 Arterial Blood pH (Temp corrected) 7.414 Arterial Blood pO2 (Temp corrected) 94.8 H Blood Gas Actual Respiration Rate 20 Blood Gas Critical Value Read Back KATY LOPEZ Blood Gas IPAP/EPAP Ratio 02/12 Blood Gas Modality MASK-BIPAP Blood Gas Notified Time 09/22/2016 5:02:38 AM Blood Gas Notified Whom LANCE Blood Gas Respiration Rate 14.0 Blood Gas Specimen Source Blood arterial Blood Gas Temperature 37.0 FiO2 20.0 Oxyhemoglobin Percent 96.7 Total Hemoglobin 11.9 L Bedside Glucose 188 177 Test 09/22/16 12:18 Bedside Glucose 157 Medications Current Medications Ondansetron HCl (Zofran Inj) 4 mg Q6H PRN IV NAUSEA AND/OR VOMITING Last administered on 09/10/16t 23:03; Admin Dose 4 MG; Start 09/09/16 at 20:00 Nitroglycerin (Nitroglycerin (Sl Tab) 0.4 Mg) 1 tab Q5M PRN SL CHEST PAIN; Start 09/09/16 at 20:00 Acetaminophen (Tylenol Liquid) 650 mg Q6H PRN PO PAIN LEVEL 1-3 OR FEVER; Start 09/09/16 at 20:00 Morphine Sulfate (morphine) 2 mg Q4H PRN IV PAIN LEVEL 7-10 Last administered on 09/21/16 23:49; Admin Dose 2 MG; Start 09/09/16 at 20:00 Lorazepam (Ativan) 1 mg Q2H PRN IV ANXIETY Last administered on 09/22/16 13:06 ; Admin Dose 1 MG; Start 09/09/16 at 20:00 Glucose (Glutose) 15 gm Q15M PRN PO DECREASED GLUCOSE; Start 09/09/16 at 20:30 Glucose (Glutose) 22.5 gm Q15M PRN PO DECREASED GLUCOSE; Start 09/09/16 at 20: 30 Dextrose (D50w Syringe) 25 ml Q15M PRN IV DECREASED GLUCOSE Last administered on 09/20/16 13:44; Admin Dose 25 ML; Start 09/09/16 at 20:30 Dextrose (D50w Syringe) 50 ml Q15M PRN IV DECREASED GLUCOSE; Start 09/09/16 at 20:30 Glucagon (Glucagen) 1 mg Q15M PRN IM DECREASED GLUCOSE; Start 09/09/16 at 20:30 Glucose (Glutose) 15 gm Q15M PRN BUCCAL DECREASED GLUCOSE; Start 09/09/16 at 20 :30 Famotidine (Pepcid Iv) 20 mg DAILY IV Last administered on 09/22/16 10:37; Admin Dose 20 MG; Start 09/10/16 at 09:00 Aspirin 81 mg 81 mg DAILY PO Last administered on 09/22/16 10:37; Admin Dose 81 MG; Start 09/12/16 at 09:00 Ceftriaxone Sodium (Rocephin) 50 ml @ 100 mls/hr Q24H IVPB Last administered on 09/21/16 16:28; Admin Dose 100 MLS/HR; Start 09/12/16 at 16:00 Insulin Aspart NOVOLOG *MODERATE* ALGORI... Q4 SC Last administered on 12:21; Admin Dose 2 UNIT; Start 09/13/16 at 13:00 Doxycycline Hyclate/Sodium Chloride (Vibramycin/NS) 250 ml @ 250 mls/hr Q12 IVPB Last administered on 09/22/16 10:37; Admin Dose 250 MLS/HR; Start at 15:00 Hydralazine HCl (Apresoline) 10 mg Q4H PRN IV SBP >160 Last administered on 09/21 01:39; Admin Dose 10 MG; Start 09/17/16 at 07:00 Docusate Sodium (Colace Liquid Cup) 100 mg Q12 PO Last administered on 10:37; Admin Dose 100 MG; Start 09/17/16 at 09:00 Metoprolol Tartrate (Lopressor) 50 mg BID PO Last administered on 09/22/16 09: 14; Admin Dose 50 MG; Start 09/19/16 at 21:00 Hydralazine HCl (Apresoline) 25 mg Q8 PO Last administered on 09/22/16 13:06; Admin Dose 25 MG; Start 09/19/16 at 14:00 Haloperidol (Haldol) 2 mg Q4H PRN IM AGITATION Last administered on 09/22/16 05 :17; Admin Dose 2 MG; Start 09/20/16 at 05:30 Insulin Glargine (Lantus) 10 unit QAM SC Last administered on 09/22/16 09:24; Admin Dose 10 UNIT; Start 09/20/16 at 09:00 Assessment/Plan Additional Assessment/Plan IMPRESSION: 1. Persistent Respiratory Failure--likely to respiratory muscle weakness ? critical illness myopathy/neuropathy. 2. Acute on chronic kidney injury. 3. Status post anemia with endoscopy showing gastritis 4. Sepsis RECS: 1. Continue BiPAP 2. BiPAP may not be a long-term solution as there are no rapidly reversible issues particularly as her resp failure is ventilatory in nature, likely due to neuromuscular weakness. 3 If no improvement, may consider intubation and trach. ZANA ESTEVES MD Sep 22, 2016 13:37
--- NOTE | 2016-09-22 14:35 | CONS ---
Date/Time of Note Date/Time of Note DATE: 09/22/16 TIME: 14:33 Assessment/Plan Assessment/Plan Additional Assessment/Plan Acute Coronary Syndrome Abnormal EKG Cardiomyopathy likely Ischemic Respiratory failure Hypotension Anemia Thrombocytopenia Renal failure Bacteremia Desaturates off Bipap Continue Bipap Continue Antibiotics Continue Metoprolol Continue Insulin Continue Nebs Recommend stress test when clinically more stable prior to discharge Consultation Date/Type/Reason Admit Date/Time Sep 09, 2016 at 19:47 Initial Consult Date 09/13/16 Type of Consultation: Pulm Referring Provider: EMILIANO HENDRICKS Exam/Review of Systems Vital Signs Vitals Vital Signs Date Time Temp Pulse Resp B/P Pulse Ox O2 Delivery O2 Flow Rate FiO2 09/22/16 14:00 95 25 163/91 99 09/22/16 13:00 98.8 BIPAP 09/22/16 12:00 30 09/21/16 14:00 3.0 Intake and Output 09/21/16 09/21/16 09/22/16 15:00 23:00 07:00 Intake Total 1275 ml 1282.5 ml 1120 ml Output Total 470 ml 380 ml 615 ml Balance 805 ml 902.5 ml 505 ml Exam On bipap Head: atraumatic, normocephalic Respiratory: clear to auscultation Cardiovascular: regular rate and rhythm Gastrointestinal: nl liver, spleen, non-tender, soft Extremities: normal pulses Results Result Diagram: 09/22/16 0305 09/22/16 0305 Results 24 hrs Laboratory Tests Test 09/21/16 17:00 09/21/16 17:09 09/21/16 20:37 09/22/16 00:36 Arterial Blood HCO3 27.4 H Arterial Blood Base Excess 2.1 Arterial Blood Oxygen Saturation 97.6 Jarett Test ACCEPTAB Arterial Blood Gas Puncture Site Right Radial Arterial Blood Carboxyhemoglobin 1.0 Arterial Blood Date Drawn 09/21/2016 8:20:16 PM Arterial Blood Methemoglobin 0.5 Arterial Blood pCO2 (Temp correct) 45.3 H Arterial Blood pH (Temp corrected) 7.399 Arterial Blood pO2 (Temp corrected) 98.3 H Blood Gas A-a O2 Differential 62.4 H Blood Gas Actual Respiration Rate 17 Blood Gas IPAP/EPAP Ratio 15/5 Blood Gas Modality mask-bipap Blood Gas Notified Time 09/21/2016 8:33:56 PM Blood Gas Notified Whom [facility] Blood Gas Respiration Rate 14.0 Blood Gas Specimen Source Blood arterial Blood Gas Temperature 37.0 FiO2 30.0 Oxyhemoglobin Percent 96.1 Total Hemoglobin 12.7 Bedside Glucose 107 153 134 Test 09/22/16 03:05 09/22/16 05:00 09/22/16 05:12 09/22/16 09:15 Anion Gap 16 Basophils # 0.1 Basophils % 0.7 Blood Urea Nitrogen 39 H Calcium Level 8.5 Carbon Dioxide Level 28 Chloride Level 107 Creatinine 1.30 H Eosinophils # 0.4 Eosinophils % 4.3 Glucose Level 171 Hematocrit 36.2 L Hemoglobin 11.5 L Lymphocytes # 2.1 Lymphocytes % 23.3 Mean Corpuscular Hemoglobin 28.6 L Mean Corpuscular Hemoglobin Concent 31.8 L Mean Corpuscular Volume 90.0 Mean Platelet Volume 12.9 H Monocytes # 1.1 H Monocytes % 12.5 H Neutrophils # 5.3 Neutrophils % 58.6 Nucleated Red Blood Cells # 0.0 Nucleated Red Blood Cells % 0.0 Platelet Count 241 Potassium Level 4.1 Red Blood Count 4.02 L Red Cell Distribution Width 16.1 H Sodium Level 147 H White Blood Count 9.0 # Arterial Blood HCO3 26.1 H Arterial Blood Base Excess 1.4 Arterial Blood Oxygen Saturation 97.2 Jarett Test ACCEPTAB Arterial Blood Gas Puncture Site Right Radial Arterial Blood Carboxyhemoglobin 0.1 Arterial Blood Date Drawn 09/22/2016 4:43:51 AM Arterial Blood Methemoglobin 0.4 Arterial Blood pCO2 (Temp correct) 41.7 Arterial Blood pH (Temp corrected) 7.414 Arterial Blood pO2 (Temp corrected) 94.8 H Blood Gas Actual Respiration Rate 20 Blood Gas Critical Value Read Back JESSICARN Blood Gas IPAP/EPAP Ratio 02/12 Blood Gas Modality MASK-BIPAP Blood Gas Notified Time 09/22/2016 5:02:38 AM Blood Gas Notified Whom [facility] Blood Gas Respiration Rate 14.0 Blood Gas Specimen Source Blood arterial Blood Gas Temperature 37.0 FiO2 20.0 Oxyhemoglobin Percent 96.7 Total Hemoglobin 11.9 L Bedside Glucose 188 177 Test 09/22/16 12:18 Bedside Glucose 157 Medications Medications Current Medications Ondansetron HCl (Zofran Inj) 4 mg Q6H PRN IV NAUSEA AND/OR VOMITING Last administered on 09/10/16 23:03; Admin Dose 4 MG; Start 09/09/16 at 20:00 Nitroglycerin (Nitroglycerin (Sl Tab) 0.4 Mg) 1 tab Q5M PRN SL CHEST PAIN; Start 09/09/16 at 20:00 Acetaminophen (Tylenol Liquid) 650 mg Q6H PRN PO PAIN LEVEL 1-3 OR FEVER; Start 09/09/16 at 20:00 Morphine Sulfate (morphine) 2 mg Q4H PRN IV PAIN LEVEL 7-10 Last administered on 09/21/16 23:49; Admin Dose 2 MG; Start 09/09/16 at 20:00 Lorazepam (Ativan) 1 mg Q2H PRN IV ANXIETY Last administered on 09/22/16 13:06 ; Admin Dose 1 MG; Start 09/09/16 at 20:00 Glucose (Glutose) 15 gm Q15M PRN PO DECREASED GLUCOSE; Start 09/09/16 at 20:30 Glucose (Glutose) 22.5 gm Q15M PRN PO DECREASED GLUCOSE; Start 09/09/16 at 20: 30 Dextrose (D50w Syringe) 25 ml Q15M PRN IV DECREASED GLUCOSE Last administered on 09/20/16 13:44; Admin Dose 25 ML; Start 09/09/16 at 20:30 Dextrose (D50w Syringe) 50 ml Q15M PRN IV DECREASED GLUCOSE; Start 09/09/16 at 20:30 Glucagon (Glucagen) 1 mg Q15M PRN IM DECREASED GLUCOSE; Start 09/09/16 at 20:30 Glucose (Glutose) 15 gm Q15M PRN BUCCAL DECREASED GLUCOSE; Start 09/09/16 at 20 :30 Famotidine (Pepcid Iv) 20 mg DAILY IV Last administered on 09/22/16 10:37; Admin Dose 20 MG; Start 09/10/16 at 09:00 Aspirin 81 mg 81 mg DAILY PO Last administered on 09/22/16 10:37; Admin Dose 81 MG; Start 09/12/16 at 09:00 Ceftriaxone Sodium (Rocephin) 50 ml @ 100 mls/hr Q24H IVPB Last administered on 09/21/16 16:28; Admin Dose 100 MLS/HR; Start 09/12/16 at 16:00 Insulin Aspart NOVOLOG *MODERATE* ALGORI... Q4 SC Last administered on 12:21; Admin Dose 2 UNIT; Start 09/13/16 at 13:00 Doxycycline Hyclate/Sodium Chloride (Vibramycin/NS) 250 ml @ 250 mls/hr Q12 IVPB Last administered on 09/22/16 10:37; Admin Dose 250 MLS/HR; Start at 15:00 Hydralazine HCl (Apresoline) 10 mg Q4H PRN IV SBP >160 Last administered on 09/21 01:39; Admin Dose 10 MG; Start 09/17/16 at 07:00 Docusate Sodium (Colace Liquid Cup) 100 mg Q12 PO Last administered on 10:37; Admin Dose 100 MG; Start 09/17/16 at 09:00 Metoprolol Tartrate (Lopressor) 50 mg BID PO Last administered on 09/22/16 09: 14; Admin Dose 50 MG; Start 09/19/16 at 21:00 Hydralazine HCl (Apresoline) 25 mg Q8 PO Last administered on 09/22/16 13:06; Admin Dose 25 MG; Start 09/19/16 at 14:00 Haloperidol (Haldol) 2 mg Q4H PRN IM AGITATION Last administered on 09/22/16 05 :17; Admin Dose 2 MG; Start 09/20/16 at 05:30 Insulin Glargine (Lantus) 10 unit QAM SC Last administered on 09/22/16 09:24; Admin Dose 10 UNIT; Start 09/20/16 at 09:00 JEAN CARLOS SALAZAR M.D. Sep 22, 2016 14:35
--- NOTE | 2016-09-22 14:48 | CONS ---
Date/Time of Note Date/Time of Note DATE: 09/22/16 TIME: 14:46 Assessment/Plan Assessment/Plan Chief Complaint/Hosp Course SUBJECTIVE: No events overnight. No fevers. lethargic, on BiPAP, looks comfortable. ANTIMICROBIALS: The patient is on: 1. Doxycycline 2. Rocephin. INDWELLINGS: The patient has NG tube, Alaniz catheter, right IJ. PHYSICAL EXAMINATION: GENERAL: Fragile, elderly woman who is lethargic, comfortable on BiPAP. HEENT: Head atraumatic, normocephalic. Sclerae anicteric. Buccal mucosa dry. NECK: Supple, trachea midline. CHEST: Rise symmetrical. Breath sounds diminished to bases. HEART: S1, S2. ABDOMEN: Soft, bowel tones present. EXTREMITIES: Without cyanosis. ASSESSMENT: 1. Resolving sepsis status post shock. 2. Status post Escherichia coli urinary tract infection with bacteremia. 3. Acute respiratory failure, status post extubated, now on BiPAP. 4. Acute renal failure. 5. Anemia. 6. Encephalopathy. PLAN: The patient remains unchanged, completing antibiotics. Continue Bipap per pulmonary. Continue management as per primary team and consultants. [facility] staff Problems: Consultation Date/Type/Reason Admit Date/Time Sep 09, 2016 at 19:47 Initial Consult Date 09/13/16 Type of Consultation: ID Referring Provider: EMILIANO HENDRICKS Exam/Review of Systems Vital Signs Vitals Vital Signs Date Time Temp Pulse Resp B/P Pulse Ox O2 Delivery O2 Flow Rate FiO2 09/22/16 14:00 95 25 163/91 99 09/22/16 13:00 98.8 BIPAP 09/22/16 12:00 30 09/21/16 14:00 3.0 Intake and Output 09/21/16 09/21/16 09/22/16 15:00 23:00 07:00 Intake Total 1275 ml 1282.5 ml 1120 ml Output Total 470 ml 380 ml 615 ml Balance 805 ml 902.5 ml 505 ml Results Result Diagram: 09/22/16 0305 09/22/16 0305 Results 24 hrs Laboratory Tests Test 09/21/16 17:00 09/21/16 17:09 09/21/16 20:37 09/22/16 00:36 Arterial Blood HCO3 27.4 H Arterial Blood Base Excess 2.1 Arterial Blood Oxygen Saturation 97.6 Jarett Test ACCEPTAB Arterial Blood Gas Puncture Site Right Radial Arterial Blood Carboxyhemoglobin 1.0 Arterial Blood Date Drawn 09/21/2016 8:20:16 PM Arterial Blood Methemoglobin 0.5 Arterial Blood pCO2 (Temp correct) 45.3 H Arterial Blood pH (Temp corrected) 7.399 Arterial Blood pO2 (Temp corrected) 98.3 H Blood Gas A-a O2 Differential 62.4 H Blood Gas Actual Respiration Rate 17 Blood Gas IPAP/EPAP Ratio 02/12 Blood Gas Modality mask-bipap Blood Gas Notified Time 09/21/2016 8:33:56 PM Blood Gas Notified Whom jmd Blood Gas Respiration Rate 14.0 Blood Gas Specimen Source Blood arterial Blood Gas Temperature 37.0 FiO2 30.0 Oxyhemoglobin Percent 96.1 Total Hemoglobin 12.7 Bedside Glucose 107 153 134 Test 09/22/16 03:05 09/22/16 05:00 09/22/16 05:12 09/22/16 09:15 Anion Gap 16 Basophils # 0.1 Basophils % 0.7 Blood Urea Nitrogen 39 H Calcium Level 8.5 Carbon Dioxide Level 28 Chloride Level 107 Creatinine 1.30 H Eosinophils # 0.4 Eosinophils % 4.3 Glucose Level 171 Hematocrit 36.2 L Hemoglobin 11.5 L Lymphocytes # 2.1 Lymphocytes % 23.3 Mean Corpuscular Hemoglobin 28.6 L Mean Corpuscular Hemoglobin Concent 31.8 L Mean Corpuscular Volume 90.0 Mean Platelet Volume 12.9 H Monocytes # 1.1 H Monocytes % 12.5 H Neutrophils # 5.3 Neutrophils % 58.6 Nucleated Red Blood Cells # 0.0 Nucleated Red Blood Cells % 0.0 Platelet Count 241 Potassium Level 4.1 Red Blood Count 4.02 L Red Cell Distribution Width 16.1 H Sodium Level 147 H White Blood Count 9.0 # Arterial Blood HCO3 26.1 H Arterial Blood Base Excess 1.4 Arterial Blood Oxygen Saturation 97.2 Jarett Test ACCEPTAB Arterial Blood Gas Puncture Site Right Radial Arterial Blood Carboxyhemoglobin 0.1 Arterial Blood Date Drawn 09/22/2016 4:43:51 AM Arterial Blood Methemoglobin 0.4 Arterial Blood pCO2 (Temp correct) 41.7 Arterial Blood pH (Temp corrected) 7.414 Arterial Blood pO2 (Temp corrected) 94.8 H Blood Gas Actual Respiration Rate 20 Blood Gas Critical Value Read Back KATY LOPEZ Blood Gas IPAP/EPAP Ratio 02/12 Blood Gas Modality MASK-BIPAP Blood Gas Notified Time 09/22/2016 5:02:38 AM Blood Gas Notified Whom LANCE Blood Gas Respiration Rate 14.0 Blood Gas Specimen Source Blood arterial Blood Gas Temperature 37.0 FiO2 20.0 Oxyhemoglobin Percent 96.7 Total Hemoglobin 11.9 L Bedside Glucose 188 177 Test 09/22/16 12:18 Bedside Glucose 157 Medications Medications Current Medications Ondansetron HCl (Zofran Inj) 4 mg Q6H PRN IV NAUSEA AND/OR VOMITING Last administered on 09/10/16 23:03; Admin Dose 4 MG; Start 09/09/16 at 20:00 Nitroglycerin (Nitroglycerin (Sl Tab) 0.4 Mg) 1 tab Q5M PRN SL CHEST PAIN; Start 09/09/16 at 20:00 Acetaminophen (Tylenol Liquid) 650 mg Q6H PRN PO PAIN LEVEL 1-3 OR FEVER; Start 09/09/16 at 20:00 Morphine Sulfate (morphine) 2 mg Q4H PRN IV PAIN LEVEL 7-10 Last administered on 09/21/16 23:49; Admin Dose 2 MG; Start 09/09/16 at 20:00 Lorazepam (Ativan) 1 mg Q2H PRN IV ANXIETY Last administered on 09/22/16 13:06 ; Admin Dose 1 MG; Start 09/09/16 at 20:00 Glucose (Glutose) 15 gm Q15M PRN PO DECREASED GLUCOSE; Start 09/09/16 at 20:30 Glucose (Glutose) 22.5 gm Q15M PRN PO DECREASED GLUCOSE; Start 09/09/16 at 20: 30 Dextrose (D50w Syringe) 25 ml Q15M PRN IV DECREASED GLUCOSE Last administered on 09/20/16 13:44; Admin Dose 25 ML; Start 09/09/16 at 20:30 Dextrose (D50w Syringe) 50 ml Q15M PRN IV DECREASED GLUCOSE; Start 09/09/16 at 20:30 Glucagon (Glucagen) 1 mg Q15M PRN IM DECREASED GLUCOSE; Start 09/09/16 at 20:30 Glucose (Glutose) 15 gm Q15M PRN BUCCAL DECREASED GLUCOSE; Start 09/09/16 at 20 :30 Famotidine (Pepcid Iv) 20 mg DAILY IV Last administered on 09/22/16 10:37; Admin Dose 20 MG; Start 09/10/16 at 09:00 Aspirin 81 mg 81 mg DAILY PO Last administered on 09/22/16 10:37; Admin Dose 81 MG; Start 09/12/16 at 09:00 Ceftriaxone Sodium (Rocephin) 50 ml @ 100 mls/hr Q24H IVPB Last administered on 09/21/16 16:28; Admin Dose 100 MLS/HR; Start 09/12/16 at 16:00 Insulin Aspart NOVOLOG *MODERATE* ALGORI... Q4 SC Last administered on 12:21; Admin Dose 2 UNIT; Start 09/13/16 at 13:00 Doxycycline Hyclate/Sodium Chloride (Vibramycin/NS) 250 ml @ 250 mls/hr Q12 IVPB Last administered on 09/22/16 10:37; Admin Dose 250 MLS/HR; Start at 15:00 Hydralazine HCl (Apresoline) 10 mg Q4H PRN IV SBP >160 Last administered on 09/21 01:39; Admin Dose 10 MG; Start 09/17/16 at 07:00 Docusate Sodium (Colace Liquid Cup) 100 mg Q12 PO Last administered on 10:37; Admin Dose 100 MG; Start 09/17/16 at 09:00 Metoprolol Tartrate (Lopressor) 50 mg BID PO Last administered on 09/22/16 09: 14; Admin Dose 50 MG; Start 09/19/16 at 21:00 Hydralazine HCl (Apresoline) 25 mg Q8 PO Last administered on 09/22/16 13:06; Admin Dose 25 MG; Start 09/19/16 at 14:00 Haloperidol (Haldol) 2 mg Q4H PRN IM AGITATION Last administered on 09/22/16 05 :17; Admin Dose 2 MG; Start 09/20/16 at 05:30 Insulin Glargine (Lantus) 10 unit QAM SC Last administered on 09/22/16 09:24; Admin Dose 10 UNIT; Start 09/20/16 at 09:00 CHLOE MONROY NP Sep 22, 2016 14:48
[2016-09-22] MEDS: CEFTRIAXONE 1 GM/50 ML (PMX) 50 ML IVPB SCH (16:19)
[2016-09-22] MEDS: hydrALAzine 20 MG INJ IV PRN (16:27)
--- NOTE | 2016-09-22 17:14 | CONS ---
Date/Time of Note Date/Time of Note DATE: 09/22/16 TIME: 17:12 Assessment/Plan Assessment/Plan Chief Complaint/Hosp Course IMPRESSION: 1. Patient has SHALOM BETTER 2. S/P ATN 3. S/P vdrf NOW ON BIPAP 4.. The patient has Escherichia coli bacteremia, E. coli urinary tract infection. 5 hypernatremia PLAN CK BMP plan D5 WATER ck bmp Problems: Consultation Date/Type/Reason Admit Date/Time Sep 09, 2016 at 19:47 Initial Consult Date 09/11/16 Type of Consultation: RENAL Referring Provider: EMILIANO HENDRICKS 24 HR Interval Summary Subjective hx not possible: other (ON BIPAP) Exam/Review of Systems Vital Signs Vitals Vital Signs Date Time Temp Pulse Resp B/P Pulse Ox O2 Delivery O2 Flow Rate FiO2 09/22/16 16:00 88 09/22/16 15:30 100 30 09/22/16 14:00 25 163/91 09/22/16 13:00 98.8 BIPAP 09/21/16 14:00 3.0 Intake and Output 09/21/16 09/21/16 09/22/16 15:00 23:00 07:00 Intake Total 1275 ml 1282.5 ml 1120 ml Output Total 470 ml 380 ml 615 ml Balance 805 ml 902.5 ml 505 ml Exam Respiratory: diminished breath sounds Cardiovascular: regular rate and rhythm Gastrointestinal: soft Musculoskeletal: nl extremities to inspection Extremities: normal pulses Results Result Diagram: 09/22/16 0305 09/22/16 0305 Results 24 hrs Laboratory Tests Test 09/21/16 20:37 09/22/16 00:36 09/22/16 03:05 09/22/16 05:00 Bedside Glucose 153 134 Anion Gap 16 Basophils # 0.1 Basophils % 0.7 Blood Urea Nitrogen 39 H Calcium Level 8.5 Carbon Dioxide Level 28 Chloride Level 107 Creatinine 1.30 H Eosinophils # 0.4 Eosinophils % 4.3 Glucose Level 171 Hematocrit 36.2 L Hemoglobin 11.5 L Lymphocytes # 2.1 Lymphocytes % 23.3 Mean Corpuscular Hemoglobin 28.6 L Mean Corpuscular Hemoglobin Concent 31.8 L Mean Corpuscular Volume 90.0 Mean Platelet Volume 12.9 H Monocytes # 1.1 H Monocytes % 12.5 H Neutrophils # 5.3 Neutrophils % 58.6 Nucleated Red Blood Cells # 0.0 Nucleated Red Blood Cells % 0.0 Platelet Count 241 Potassium Level 4.1 Red Blood Count 4.02 L Red Cell Distribution Width 16.1 H Sodium Level 147 H White Blood Count 9.0 # Arterial Blood HCO3 26.1 H Arterial Blood Base Excess 1.4 Arterial Blood Oxygen Saturation 97.2 Jarett Test ACCEPTAB Arterial Blood Gas Puncture Site Right Radial Arterial Blood Carboxyhemoglobin 0.1 Arterial Blood Date Drawn 09/22/2016 4:43:51 AM Arterial Blood Methemoglobin 0.4 Arterial Blood pCO2 (Temp correct) 41.7 Arterial Blood pH (Temp corrected) 7.414 Arterial Blood pO2 (Temp corrected) 94.8 H Blood Gas Actual Respiration Rate 20 Blood Gas Critical Value Read Back KATY LOPEZ Blood Gas IPAP/EPAP Ratio 02/12 Blood Gas Modality MASK-BIPAP Blood Gas Notified Time 09/22/2016 5:02:38 AM Blood Gas Notified Whom JMD Blood Gas Respiration Rate 14.0 Blood Gas Specimen Source Blood arterial Blood Gas Temperature 37.0 FiO2 20.0 Oxyhemoglobin Percent 96.7 Total Hemoglobin 11.9 L Test 09/22/16 05:12 09/22/16 09:15 09/22/16 12:18 09/22/16 16:57 Bedside Glucose 188 177 157 148 Medications Medications Current Medications Ondansetron HCl (Zofran Inj) 4 mg Q6H PRN IV NAUSEA AND/OR VOMITING Last administered on 09/10/16 23:03; Admin Dose 4 MG; Start 09/09/16 at 20:00 Nitroglycerin (Nitroglycerin (Sl Tab) 0.4 Mg) 1 tab Q5M PRN SL CHEST PAIN; Start 09/09/16 at 20:00 Acetaminophen (Tylenol Liquid) 650 mg Q6H PRN PO PAIN LEVEL 1-3 OR FEVER; Start 09/09/16 at 20:00 Morphine Sulfate (morphine) 2 mg Q4H PRN IV PAIN LEVEL 7-10 Last administered on 09/21/16 23:49; Admin Dose 2 MG; Start 09/09/16 at 20:00 Lorazepam (Ativan) 1 mg Q2H PRN IV ANXIETY Last administered on 09/22/16 16:46 ; Admin Dose 1 MG; Start 09/09/16 at 20:00 Glucose (Glutose) 15 gm Q15M PRN PO DECREASED GLUCOSE; Start 09/09/16 at 20:30 Glucose (Glutose) 22.5 gm Q15M PRN PO DECREASED GLUCOSE; Start 09/09/16 at 20: 30 Dextrose (D50w Syringe) 25 ml Q15M PRN IV DECREASED GLUCOSE Last administered on 09/20/16 13:44; Admin Dose 25 ML; Start 09/09/16 at 20:30 Dextrose (D50w Syringe) 50 ml Q15M PRN IV DECREASED GLUCOSE; Start 09/09/16 at 20:30 Glucagon (Glucagen) 1 mg Q15M PRN IM DECREASED GLUCOSE; Start 09/09/16 at 20:30 Glucose (Glutose) 15 gm Q15M PRN BUCCAL DECREASED GLUCOSE; Start 09/09/16 at 20 :30 Famotidine (Pepcid Iv) 20 mg DAILY IV Last administered on 09/22/16 10:37; Admin Dose 20 MG; Start 09/10/16 at 09:00 Aspirin 81 mg 81 mg DAILY PO Last administered on 09/22/16 10:37; Admin Dose 81 MG; Start 09/12/16 at 09:00 Ceftriaxone Sodium (Rocephin) 50 ml @ 100 mls/hr Q24H IVPB Last administered on 09/22/16 16:19; Admin Dose 100 MLS/HR; Start 09/12/16 at 16:00 Insulin Aspart NOVOLOG *MODERATE* ALGORI... Q4 SC Last administered on 12:21; Admin Dose 2 UNIT; Start 09/13/16 at 13:00 Doxycycline Hyclate/Sodium Chloride (Vibramycin/NS) 250 ml @ 250 mls/hr Q12 IVPB Last administered on 09/22/16 10:37; Admin Dose 250 MLS/HR; Start at 15:00 Hydralazine HCl (Apresoline) 10 mg Q4H PRN IV SBP >160 Last administered on 09/22 16:27; Admin Dose 10 MG; Start 09/17/16 at 07:00 Docusate Sodium (Colace Liquid Cup) 100 mg Q12 PO Last administered on 10:37; Admin Dose 100 MG; Start 09/17/16 at 09:00 Metoprolol Tartrate (Lopressor) 50 mg BID PO Last administered on 09/22/16 09: 14; Admin Dose 50 MG; Start 09/19/16 at 21:00 Hydralazine HCl (Apresoline) 25 mg Q8 PO Last administered on 09/22/16 13:06; Admin Dose 25 MG; Start 09/19/16 at 14:00 Haloperidol (Haldol) 2 mg Q4H PRN IM AGITATION Last administered on 09/22/16 05 :17; Admin Dose 2 MG; Start 09/20/16 at 05:30 Insulin Glargine (Lantus) 10 unit QAM SC Last administered on 09/22/16 09:24; Admin Dose 10 UNIT; Start 09/20/16 at 09:00 QUITA SCHOFIELD MD Sep 22, 2016 17:13
[2016-09-22 18:05] LABS: AADO2 Arterial 66.6 mmHg (7.0-24.0); Allen Test ACCEPTAB; Arterial COHb 0.1 % (0.0-3.0); Arterial Fraction of Oxyhgb 97.1 % (93.0-99.0); Arterial HCO3 27.2 mmol/L (22.0-26.0); Arterial MetHb 0.3 % (0.0-1.5); Arterial Total Hemglobin 13.2 g/dl (12.0-18.0); Blood Gas IEPAP 15/5; MODE MASK - BIPAP
[2016-09-22] MEDS: morphine 2 MG INJ IV PRN (18:21)
--- NOTE | 2016-09-22 19:16 | CONS ---
Date/Time of Note Date/Time of Note DATE: 09/22/16 TIME: 19:15 Assessment/Plan Assessment/Plan Chief Complaint/Hosp Course IMPRESSION: thrombocytopenia in pt with severe sepsis, exposed to multiple meds with pos thrombocytopenic effect, including VANCO, ZOSYN, HEPARIN,CEFAZOLIN- RESOLVED NO EVIDENCE DIC cont to monitor blood count closely transfuse if platelet [place] less [place] [id number], considering severe sepsis HIPA- NEG PLATELET COUNT IMPROVING Leukocytosis. REACTIVE MONITOR IMPROVING Anemia. C/W ACD MONITOR BLOOD COUNT CLOSELY TRANSFUSE NEEDED Severe Sepsis with septic shock 2/2 Ecoli UTI /Bacteremia Acute renal failure - 2/2 to ATN from sepsis Type II DM - Hyperglycemic on D5W Metabolic / Lactic acidosis 2/2 #1 Acute resp failure now ventilator dependent NSTEMI versus demand ischemia Positive troponin, assess significance, assess for true acute coronary syndrome. Metabolic acidosis respiratory failure, vent dependent incomplete database Thank you for allowing me to take part in the care of this patient. I will continue to follow along very closely with you. Further recommendations will be made as the patient progresses through her inpatient hospital clinical course. Problems: Consultation Date/Type/Reason Admit Date/Time Sep 09, 2016 at 19:47 Initial Consult Date 09/13/16 [facility] Referring Provider: EMILIANO HENDRICKS 24 HR Interval Summary Free Text/Dictation all noted count stable/improving Exam/Review of Systems Vital Signs Vitals Vital Signs Date Time Temp Pulse Resp B/P Pulse Ox O2 Delivery O2 Flow Rate FiO2 09/22/16 17:15 98 98 30 09/22/16 14:00 25 163/91 09/22/16 13:00 98.8 BIPAP 09/21/16 14:00 3.0 Intake and Output 09/21/16 09/21/16 09/22/16 15:00 23:00 07:00 Intake Total 1275 ml 1282.5 ml 1120 ml Output Total 470 ml 380 ml 615 ml Balance 805 ml 902.5 ml 505 ml Exam GENERAL: Fragile, elderly woman who is lethargic, comfortable on BiPAP. HEENT: Head atraumatic, normocephalic. Sclerae anicteric. Buccal mucosa dry. NECK: Supple, trachea midline. CHEST: Rise symmetrical. Breath sounds diminished to bases. HEART: S1, S2. ABDOMEN: Soft, bowel tones present. EXTREMITIES: Without cyanosis. Results Result Diagram: 09/22/16 0305 09/22/16 0305 Results 24 hrs Laboratory Tests Test 09/21/16 20:37 09/22/16 00:36 09/22/16 03:05 09/22/16 05:00 Bedside Glucose 153 134 Anion Gap 16 Basophils # 0.1 Basophils % 0.7 Blood Urea Nitrogen 39 H Calcium Level 8.5 Carbon Dioxide Level 28 Chloride Level 107 Creatinine 1.30 H Eosinophils # 0.4 Eosinophils % 4.3 Glucose Level 171 Hematocrit 36.2 L Hemoglobin 11.5 L Lymphocytes # 2.1 Lymphocytes % 23.3 Mean Corpuscular Hemoglobin 28.6 L Mean Corpuscular Hemoglobin Concent 31.8 L Mean Corpuscular Volume 90.0 Mean Platelet Volume 12.9 H Monocytes # 1.1 H Monocytes % 12.5 H Neutrophils # 5.3 Neutrophils % 58.6 Nucleated Red Blood Cells # 0.0 Nucleated Red Blood Cells % 0.0 Platelet Count 241 Potassium Level 4.1 Red Blood Count 4.02 L Red Cell Distribution Width 16.1 H Sodium Level 147 H White Blood Count 9.0 # Arterial Blood HCO3 26.1 H Arterial Blood Base Excess 1.4 Arterial Blood Oxygen Saturation 97.2 Jarett Test ACCEPTAB Arterial Blood Gas Puncture Site Right Radial Arterial Blood Carboxyhemoglobin 0.1 Arterial Blood Date Drawn 09/22/2016 4:43:51 AM Arterial Blood Methemoglobin 0.4 Arterial Blood pCO2 (Temp correct) 41.7 Arterial Blood pH (Temp corrected) 7.414 Arterial Blood pO2 (Temp corrected) 94.8 H Blood Gas Actual Respiration Rate 20 Blood Gas Critical Value Read Back KATY LOPEZ Blood Gas IPAP/EPAP Ratio 02/12 Blood Gas Modality MASK-BIPAP Blood Gas Notified Time 09/22/2016 5:02:38 AM Blood Gas Notified Whom LANCE Blood Gas Respiration Rate 14.0 Blood Gas Specimen Source Blood arterial Blood Gas Temperature 37.0 FiO2 20.0 Oxyhemoglobin Percent 96.7 Total Hemoglobin 11.9 L Test 09/22/16 05:12 09/22/16 09:15 09/22/16 12:18 09/22/16 16:57 Bedside Glucose 188 177 157 148 Test 09/22/16 17:48 Arterial Blood HCO3 27.2 H Arterial Blood Base Excess 2.0 Arterial Blood Oxygen Saturation 97.5 Jarett Test ACCEPTAB Arterial Blood Gas Puncture Site Right Radial Arterial Blood Carboxyhemoglobin 0.1 Arterial Blood Date Drawn 09/22/2016 6:00:42 PM Arterial Blood Methemoglobin 0.3 Arterial Blood pCO2 (Temp correct) 44.8 Arterial Blood pH (Temp corrected) 7.401 Arterial Blood pO2 (Temp corrected) 94.7 H Blood Gas A-a O2 Differential 66.6 H Blood Gas Actual Respiration Rate 34 Blood Gas IPAP/EPAP Ratio 02/12 Blood Gas Modality MASK - BIPAP Blood Gas Notified Time 09/22/2016 6:04:52 PM Blood Gas Notified Whom MH Blood Gas Respiration Rate 14.0 Blood Gas Specimen Source Blood arterial Blood Gas Temperature 37.0 FiO2 30.0 Oxyhemoglobin Percent 97.1 Total Hemoglobin 13.2 Medications Medications Current Medications Ondansetron HCl (Zofran Inj) 4 mg Q6H PRN IV NAUSEA AND/OR VOMITING Last administered on 09/10/16 23:03; Admin Dose 4 MG; Start 09/09/16 at 20:00 Nitroglycerin (Nitroglycerin (Sl Tab) 0.4 Mg) 1 tab Q5M PRN SL CHEST PAIN; Start 09/09/16 at 20:00 Acetaminophen (Tylenol Liquid) 650 mg Q6H PRN PO PAIN LEVEL 1-3 OR FEVER; Start 09/09/16 at 20:00 Morphine Sulfate (morphine) 2 mg Q4H PRN IV PAIN LEVEL 7-10 Last administered on 09/22/16 18:21; Admin Dose 2 MG; Start 09/09/16 at 20:00 Lorazepam (Ativan) 1 mg Q2H PRN IV ANXIETY Last administered on 09/22/16 16:46 ; Admin Dose 1 MG; Start 09/09/16 at 20:00 Glucose (Glutose) 15 gm Q15M PRN PO DECREASED GLUCOSE; Start 09/09/16 at 20:30 Glucose (Glutose) 22.5 gm Q15M PRN PO DECREASED GLUCOSE; Start 09/09/16 at 20: 30 Dextrose (D50w Syringe) 25 ml Q15M PRN IV DECREASED GLUCOSE Last administered on 09/20/16 13:44; Admin Dose 25 ML; Start 09/09/16 at 20:30 Dextrose (D50w Syringe) 50 ml Q15M PRN IV DECREASED GLUCOSE; Start 09/09/16 at 20:30 Glucagon (Glucagen) 1 mg Q15M PRN IM DECREASED GLUCOSE; Start 09/09/16 at 20:30 Glucose (Glutose) 15 gm Q15M PRN BUCCAL DECREASED GLUCOSE; Start 09/09/16 at 20 :30 Famotidine (Pepcid Iv) 20 mg DAILY IV Last administered on 09/22/16 10:37; Admin Dose 20 MG; Start 09/10/16 at 09:00 Aspirin 81 mg 81 mg DAILY PO Last administered on 09/22/16 10:37; Admin Dose 81 MG; Start 09/12/16 at 09:00 Ceftriaxone Sodium (Rocephin) 50 ml @ 100 mls/hr Q24H IVPB Last administered on 09/22/16 16:19; Admin Dose 100 MLS/HR; Start 09/12/16 at 16:00 Insulin Aspart NOVOLOG *MODERATE* ALGORI... Q4 SC Last administered on 12:21; Admin Dose 2 UNIT; Start 09/13/16 at 13:00 Doxycycline Hyclate/Sodium Chloride (Vibramycin/NS) 250 ml @ 250 mls/hr Q12 IVPB Last administered on 09/22/16 10:37; Admin Dose 250 MLS/HR; Start at 15:00 Hydralazine HCl (Apresoline) 10 mg Q4H PRN IV SBP >160 Last administered on 09/22 16:27; Admin Dose 10 MG; Start 09/17/16 at 07:00 Docusate Sodium (Colace Liquid Cup) 100 mg Q12 PO Last administered on 10:37; Admin Dose 100 MG; Start 09/17/16 at 09:00 Metoprolol Tartrate (Lopressor) 50 mg BID PO Last administered on 09/22/16 09: 14; Admin Dose 50 MG; Start 09/19/16 at 21:00 Hydralazine HCl (Apresoline) 25 mg Q8 PO Last administered on 09/22/16 13:06; Admin Dose 25 MG; Start 09/19/16 at 14:00 Haloperidol (Haldol) 2 mg Q4H PRN IM AGITATION Last administered on 09/22/16 05 :17; Admin Dose 2 MG; Start 09/20/16 at 05:30 Insulin Glargine (Lantus) 10 unit QAM SC Last administered on 09/22/16t 09:24; Admin Dose 10 UNIT; Start 09/20/16 at 09:00 JEFF FRANK MD Sep 22, 2016 19:16
[2016-09-22] MEDS: LEVALBUTEROL (NEB) 1.25 MG/0.5 ML AMP HHN PRN (19:58)
[2016-09-22] MEDS: ACETAMINOPHEN 650MG/20.3ML CUP PO PRN (20:33)
--- NOTE | 2016-09-22 20:34 | CONS ---
Date/Time of Note Date/Time of Note DATE: 09/22/16 TIME: 20:33 Assessment/Plan Assessment/Plan Chief Complaint/Hosp Course Impression and Plan: 1. Severe Iron deficiency anemia: + occult test stool. No signs of GI bleeding presently. S/p EGD with gastritis findings. H/H stable now - monitor CBC daily - if need blood transfusion again, will need EGD sooner 2. Dysphagia: - continue NG feeding 3. s/p Septic shock - 2/2 Ecoli UTI /Bacteremia - improving now, has been off pressors for a few days now. - Continue broad spectrum abx - Continue ICU care for now 4. Acute renal failure r/o CKD- 2/2 to ATN from sepsis - improving now 5. Acute Hypercapnic and Hypoxemic Vent depen Resp failure - s/p self extubation - on BiPAP - Continue Vent mgt per pulm 6. NSTEMI versus elevated trop - CV monitoring. ECHO = EF 45-50 by echo this admit. - Daily aspirin - if need repeat EGD with hemostasis, will need to hold aspirin per cardiology Problems: Consultation Date/Type/Reason Admit Date/Time Sep 09, 2016 at 19:47 Initial Consult Date 09/13/16 Type of Consultation: GI Referring Provider: EMILIANO HENDRICKS 24 HR Interval Summary Free Text/Dictation No fevers. lethargic, on BiPAP, looks comfortable. Exam/Review of Systems Vital Signs Vitals Vital Signs Date Time Temp Pulse Resp B/P Pulse Ox O2 Delivery O2 Flow Rate FiO2 09/22/16 19:58 95 98 30 09/22/16 17:00 26 169/73 09/22/16 16:00 BIPAP 09/22/16 15:00 98.7 09/21/16 14:00 3.0 Intake and Output 09/21/16 09/21/16 09/22/16 15:00 23:00 07:00 Intake Total 1275 ml 1282.5 ml 1120 ml Output Total 470 ml 380 ml 615 ml Balance 805 ml 902.5 ml 505 ml Exam Constitutional: frail Psych: nl mood/affect, no complaints Head: atraumatic, normocephalic Eyes: nl conjunctiva, nl lids, nl sclera ENMT: mucosa pink and moist, nl external ears & nose, nl lips & teeth, nl nasal mucosa & septum Neck: non-tender, supple Respiratory: clear to auscultation, normal air movement Cardiovascular: nl pulses, regular rate and rhythm Gastrointestinal: bowel sounds, non-tender, soft Results Result Diagram: 09/22/16 0305 09/22/16 0305 Results 24 hrs Laboratory Tests Test 09/21/16 20:37 09/22/16 00:36 09/22/16 03:05 09/22/16 05:00 Bedside Glucose 153 134 Anion Gap 16 Basophils # 0.1 Basophils % 0.7 Blood Urea Nitrogen 39 H Calcium Level 8.5 Carbon Dioxide Level 28 Chloride Level 107 Creatinine 1.30 H Eosinophils # 0.4 Eosinophils % 4.3 Glucose Level 171 Hematocrit 36.2 L Hemoglobin 11.5 L Lymphocytes # 2.1 Lymphocytes % 23.3 Mean Corpuscular Hemoglobin 28.6 L Mean Corpuscular Hemoglobin Concent 31.8 L Mean Corpuscular Volume 90.0 Mean Platelet Volume 12.9 H Monocytes # 1.1 H Monocytes % 12.5 H Neutrophils # 5.3 Neutrophils % 58.6 Nucleated Red Blood Cells # 0.0 Nucleated Red Blood Cells % 0.0 Platelet Count 241 Potassium Level 4.1 Red Blood Count 4.02 L Red Cell Distribution Width 16.1 H Sodium Level 147 H White Blood Count 9.0 # Arterial Blood HCO3 26.1 H Arterial Blood Base Excess 1.4 Arterial Blood Oxygen Saturation 97.2 Jarett Test ACCEPTAB Arterial Blood Gas Puncture Site Right Radial Arterial Blood Carboxyhemoglobin 0.1 Arterial Blood Date Drawn 09/22/2016 4:43:51 AM Arterial Blood Methemoglobin 0.4 Arterial Blood pCO2 (Temp correct) 41.7 Arterial Blood pH (Temp corrected) 7.414 Arterial Blood pO2 (Temp corrected) 94.8 H Blood Gas Actual Respiration Rate 20 Blood Gas Critical Value Read Back JESSICARN Blood Gas IPAP/EPAP Ratio 02/12 Blood Gas Modality MASK-BIPAP Blood Gas Notified Time 09/22/2016 5:02:38 AM Blood Gas Notified Whom LANCE Blood Gas Respiration Rate 14.0 Blood Gas Specimen Source Blood arterial Blood Gas Temperature 37.0 FiO2 20.0 Oxyhemoglobin Percent 96.7 Total Hemoglobin 11.9 L Test 09/22/16 05:12 09/22/16 09:15 09/22/16 12:18 09/22/16 16:57 Bedside Glucose 188 177 157 148 Test 09/22/16 17:48 Arterial Blood HCO3 27.2 H Arterial Blood Base Excess 2.0 Arterial Blood Oxygen Saturation 97.5 Jarett Test ACCEPTAB Arterial Blood Gas Puncture Site Right Radial Arterial Blood Carboxyhemoglobin 0.1 Arterial Blood Date Drawn 09/22/2016 6:00:42 PM Arterial Blood Methemoglobin 0.3 Arterial Blood pCO2 (Temp correct) 44.8 Arterial Blood pH (Temp corrected) 7.401 Arterial Blood pO2 (Temp corrected) 94.7 H Blood Gas A-a O2 Differential 66.6 H Blood Gas Actual Respiration Rate 34 Blood Gas IPAP/EPAP Ratio 02/12 Blood Gas Modality MASK - BIPAP Blood Gas Notified Time 09/22/2016 6:04:52 PM Blood Gas Notified Whom MH Blood Gas Respiration Rate 14.0 Blood Gas Specimen Source Blood arterial Blood Gas Temperature 37.0 FiO2 30.0 Oxyhemoglobin Percent 97.1 Total Hemoglobin 13.2 Medications Medications Current Medications Ondansetron HCl (Zofran Inj) 4 mg Q6H PRN IV NAUSEA AND/OR VOMITING Last administered on 09/10/16 23:03; Admin Dose 4 MG; Start 09/09/16 at 20:00 Nitroglycerin (Nitroglycerin (Sl Tab) 0.4 Mg) 1 tab Q5M PRN SL CHEST PAIN; Start 09/09/16 at 20:00 Acetaminophen (Tylenol Liquid) 650 mg Q6H PRN PO PAIN LEVEL 1-3 OR FEVER; Start 09/09/16 at 20:00 Morphine Sulfate (morphine) 2 mg Q4H PRN IV PAIN LEVEL 7-10 Last administered on 09/22/16 18:21; Admin Dose 2 MG; Start 09/09/16 at 20:00 Lorazepam (Ativan) 1 mg Q2H PRN IV ANXIETY Last administered on 09/22/16 16:46 ; Admin Dose 1 MG; Start 09/09/16 at 20:00 Glucose (Glutose) 15 gm Q15M PRN PO DECREASED GLUCOSE; Start 09/09/16 at 20:30 Glucose (Glutose) 22.5 gm Q15M PRN PO DECREASED GLUCOSE; Start 09/09/16 at 20: 30 Dextrose (D50w Syringe) 25 ml Q15M PRN IV DECREASED GLUCOSE Last administered on 09/20/16 13:44; Admin Dose 25 ML; Start 09/09/16 at 20:30 Dextrose (D50w Syringe) 50 ml Q15M PRN IV DECREASED GLUCOSE; Start 09/09/16 at 20:30 Glucagon (Glucagen) 1 mg Q15M PRN IM DECREASED GLUCOSE; Start 09/09/16 at 20:30 Glucose (Glutose) 15 gm Q15M PRN BUCCAL DECREASED GLUCOSE; Start 09/09/16 at 20 :30 Famotidine (Pepcid Iv) 20 mg DAILY IV Last administered on 09/22/16 10:37; Admin Dose 20 MG; Start 09/10/16 at 09:00 Aspirin 81 mg 81 mg DAILY PO Last administered on 09/22/16 10:37; Admin Dose 81 MG; Start 09/12/16 at 09:00 Ceftriaxone Sodium (Rocephin) 50 ml @ 100 mls/hr Q24H IVPB Last administered on 09/22/16 16:19; Admin Dose 100 MLS/HR; Start 09/12/16 at 16:00 Insulin Aspart NOVOLOG *MODERATE* ALGORI... Q4 SC Last administered on 12:21; Admin Dose 2 UNIT; Start 09/13/16 at 13:00 Doxycycline Hyclate/Sodium Chloride (Vibramycin/NS) 250 ml @ 250 mls/hr Q12 IVPB Last administered on 09/22/16 20:23; Admin Dose 250 MLS/HR; Start at 15:00 Hydralazine HCl (Apresoline) 10 mg Q4H PRN IV SBP >160 Last administered on 09/22 16:27; Admin Dose 10 MG; Start 09/17/16 at 07:00 Docusate Sodium (Colace Liquid Cup) 100 mg Q12 PO Last administered on 10:37; Admin Dose 100 MG; Start 09/17/16 at 09:00 Metoprolol Tartrate (Lopressor) 50 mg BID PO Last administered on 09/22/16 09: 14; Admin Dose 50 MG; Start 09/19/16 at 21:00 Hydralazine HCl (Apresoline) 25 mg Q8 PO Last administered on 09/22/16 13:06; Admin Dose 25 MG; Start 09/19/16 at 14:00 Haloperidol (Haldol) 2 mg Q4H PRN IM AGITATION Last administered on 09/22/16 05 :17; Admin Dose 2 MG; Start 09/20/16 at 05:30 Insulin Glargine (Lantus) 10 unit QAM SC Last administered on 09/22/16 09:24; Admin Dose 10 UNIT; Start 09/20/16 at 09:00 LAURIE BOBBY MD Sep 22, 2016 20:34
[2016-09-23] VITALS (43 sets, daily range): BP systolic 128–177; BP diastolic 60–129; PULSE 67–95; RESP 16–28
[2016-09-23] MEDS: INSULIN ASPART [NOVOLOG] 3 ML PEN SC SCH ×6 (01:27→20:48)
[2016-09-23] MEDS: ACETAMINOPHEN 650MG/20.3ML CUP PO PRN (03:49)
[2016-09-23 04:53] LABS: AADO2 Arterial 49.4 mmHg (7.0-24.0); Allen Test ACCEPTAB; Arterial Base Excess 2.8 mmol/L (-3.0-3); Arterial COHb 0.4 % (0.0-3.0); Arterial Fraction of Oxyhgb 97.1 % (93.0-99.0); Arterial HCO3 28.1 mmol/L (22.0-26.0); Arterial MetHb 0.4 % (0.0-1.5); Arterial Total Hemglobin 12.6 g/dl (12.0-18.0); Blood Gas IEPAP 15/5; Blood Gas PS 10; MODE BIPAP - S/T
[2016-09-23 06:41] LABS: ADD SCAN DIFF NO
[2016-09-23 06:46] LABS: BASOPHIL # 0.1 10^3/ul (0.0-0.1); BASOPHILS % 0.9 % (0.0-2.0); EOSINOPHILS # 0.3 10^3/ul (0.0-0.5); EOSINOPHILS % 4.4 % (0.0-7.0); HEMOGLOBIN 10.9 g/dl (12.0-16.0); LYMPHOCYTES # 1.7 10^3/ul (0.8-2.9); LYMPHOCYTES % 22.1 % (15.0-51.0); MEAN CORPUSCULAR HEMOGLOBIN 29.2 pg (29.0-33.0); MEAN CORPUSCULAR HGB CONC 32.1 g/dl (32.0-37.0); MEAN CORPUSCULAR VOLUME 91.2 fl (82.0-101.0); MONOCYTE # 0.9 10^3/ul (0.3-0.9); MONOCYTES % 12.6 % (0.0-11.0); NEUTROPHIL # 4.4 10^3/ul (1.6-7.5); NEUTROPHILS % 59.5 % (39.0-77.0); PLATELET COUNT 252 10^3/UL (140-415); RED BLOOD COUNT 3.73 10^6/ul (4.20-5.40); RED CELL DISTRIBUTION WIDTH 16.3 % (11.5-14.5); WHITE BLOOD COUNT 7.5 10^3/ul (4.8-10.8)
[2016-09-23 06:58] LABS: POTASSIUM 4.3 mmol/L (3.5-5.1)
[2016-09-23 07:00] LABS: CREATININE 1.29 mg/dl (0.44-1.00)
[2016-09-23 07:02] LABS: CALCIUM 8.3 mg/dl (8.4-10.2)
--- NOTE | 2016-09-23 07:20 | RADRPT ---
PROCEDURE: XR Chest. CLINICAL INDICATION: Shortness of breath. TECHNIQUE: Single frontal view. COMPARISON: 09/21/2016. FINDINGS: The right internal jugular vein catheter and nasogastric tube are in satisfactory position. There i s atelectasis at the lung bases, unchanged. The lungs are otherwise clear. The heart size is normal. Small bilateral pleural effusions are unchanged. There is no pneumothorax. IMPRESSION: 1. Nasogastric tube and right IJ catheter in satisfactory position. 2. Atelectasis at the lung bases, unchanged. 3. Small bilateral pleural effusions, unchanged. RPTAT: QQ .Trevor Harper MD, MD Date Time Electronically viewed and signed by .Trevor Harper MD, MD on 09/23/2016 07:20 .R/
--- NOTE | 2016-09-23 09:07 | CONS ---
Date/Time of Note Date/Time of Note DATE: 09/23/16 TIME: 09:04 Assessment/Plan Assessment/Plan Additional Assessment/Plan Assessment and recommendations; 1. Patient admitted with severe gram-negative septicemia from E. coli. 2. Status post acute renal failure. 3. Respiratory failure, patient maintaining adequate ABGs on BiPAP. 4. Right lower lobe pneumonia. 5. Interval resolution of metabolic acidosis. 6. Interval resolution of severe thrombocytopenia as well. Continue current treatment. Consultation Date/Type/Reason Admit Date/Time Sep 09, 2016 at 19:47 Initial Consult Date 09/11/16 Type of Consultation: Pulmonary/critical care Referring Provider: EMILIANO HENDRICKS 24 HR Interval Summary Free Text/Dictation Patient condition is tenuous at best. Still requiring BiPAP. Patient however is quite awake and alert. He denies any shortness of breath. Has remained hemodynamically stable. General examination; elderly lady, on BiPAP currently in no distress awake and alert. Exam/Review of Systems Vital Signs Vitals Vital Signs Date Time Temp Pulse Resp B/P Pulse Ox O2 Delivery O2 Flow Rate FiO2 09/23/16 08:00 74 09/23/16 07:32 100 30 09/23/16 06:55 26 09/23/16 04:01 97.7 09/23/16 04:00 168/93 09/22/16 16:00 BIPAP 09/21/16 14:00 3.0 Intake and Output 09/22/16 09/22/16 09/23/16 15:00 23:00 07:00 Intake Total 190 ml 430 ml 600 ml Output Total 110 ml 1680 ml 480 ml Balance 80 ml -1250 ml 120 ml Exam H EENT examination; supple neck, no JVD. No lymphadenopathy. Midline trachea. No thyromegaly. Pupils are small bilaterally. Chest examination; diminished breath sounds bilaterally. No added sounds. S1- S2 audible, no murmurs. Regular rhythm. Abdomen examination; soft, nondistended. No organomegaly. Bowel sounds audible. Extremity examination; no peripheral edema. 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 Results Result Diagram: 09/23/16 0600 09/23/16 0600 Results 24 hrs Laboratory Tests Test 09/22/16 09:15 09/22/16 12:18 09/22/16 16:57 09/22/16 17:48 Bedside Glucose 177 157 148 Arterial Blood HCO3 27.2 H Arterial Blood Base Excess 2.0 Arterial Blood Oxygen Saturation 97.5 Jarett Test ACCEPTAB Arterial Blood Gas Puncture Site Right Radial Arterial Blood Carboxyhemoglobin 0.1 Arterial Blood Date Drawn 09/22/2016 6:00:42 PM Arterial Blood Methemoglobin 0.3 Arterial Blood pCO2 (Temp correct) 44.8 Arterial Blood pH (Temp corrected) 7.401 Arterial Blood pO2 (Temp corrected) 94.7 H Blood Gas A-a O2 Differential 66.6 H Blood Gas Actual Respiration Rate 34 Blood Gas IPAP/EPAP Ratio 02/12 Blood Gas Modality MASK - BIPAP Blood Gas Notified Time 09/22/2016 6:04:52 PM Blood Gas Notified Whom MH Blood Gas Respiration Rate 14.0 Blood Gas Specimen Source Blood arterial Blood Gas Temperature 37.0 FiO2 30.0 Oxyhemoglobin Percent 97.1 Total Hemoglobin 13.2 Test 09/22/16 20:42 09/23/16 01:18 09/23/16 05:00 09/23/16 05:43 Bedside Glucose 137 142 157 Arterial Blood HCO3 28.1 H Arterial Blood Base Excess 2.8 Arterial Blood Oxygen Saturation 97.9 Jarett Test ACCEPTAB Arterial Blood Gas Puncture Site Left Radial Arterial Blood Carboxyhemoglobin 0.4 Arterial Blood Date Drawn 09/23/2016 4:35:26 AM Arterial Blood Methemoglobin 0.4 Arterial Blood pCO2 (Temp correct) 46.2 H Arterial Blood pH (Temp corrected) 7.402 Arterial Blood pO2 (Temp corrected) 110.2 H Blood Gas A-a O2 Differential 49.4 H Blood Gas Actual Respiration Rate 22 Blood Gas IPAP/EPAP Ratio 02/12 Blood Gas Modality BIPAP - S/T Blood Gas Notified Time 09/23/2016 4:53:30 AM Blood Gas Notified Whom RTR Blood Gas Pressure Support 10 Blood Gas Respiration Rate 14.0 Blood Gas Specimen Source Blood arterial Blood Gas Temperature 37.0 FiO2 30.0 Oxyhemoglobin Percent 97.1 Total Hemoglobin 12.6 Test 09/23/16 06:00 09/23/16 08:27 Anion Gap 12 Basophils # 0.1 Basophils % 0.9 Blood Urea Nitrogen 36 H Calcium Level 8.3 L Carbon Dioxide Level 31 Chloride Level 110 Creatinine 1.29 H Eosinophils # 0.3 Eosinophils % 4.4 Glucose Level 173 Hematocrit 34.0 L Hemoglobin 10.9 L Lymphocytes # 1.7 Lymphocytes % 22.1 Mean Corpuscular Hemoglobin 29.2 Mean Corpuscular Hemoglobin Concent 32.1 Mean Corpuscular Volume 91.2 Mean Platelet Volume 12.0 H Monocytes # 0.9 Monocytes % 12.6 H Neutrophils # 4.4 Neutrophils % 59.5 Nucleated Red Blood Cells # 0.0 Nucleated Red Blood Cells % 0.0 Platelet Count 252 Potassium Level 4.3 Red Blood Count 3.73 L Red Cell Distribution Width 16.3 H Sodium Level 149 H White Blood Count 7.5 Bedside Glucose 140 Medications Medications Current Medications Ondansetron HCl (Zofran Inj) 4 mg Q6H PRN IV NAUSEA AND/OR VOMITING Last administered on 09/10/16 23:03; Admin Dose 4 MG; Start 09/09/16 at 20:00 Nitroglycerin (Nitroglycerin (Sl Tab) 0.4 Mg) 1 tab Q5M PRN SL CHEST PAIN; Start 09/09/16 at 20:00 Acetaminophen (Tylenol Liquid) 650 mg Q6H PRN PO PAIN LEVEL 1-3 OR FEVER Last administered on 09/23/16 03:49; Admin Dose 650 MG; Start 09/09/16 at 20:00 Morphine Sulfate (morphine) 2 mg Q4H PRN IV PAIN LEVEL 7-10 Last administered on 09/22/16 18:21; Admin Dose 2 MG; Start 09/09/16 at 20:00 Lorazepam (Ativan) 1 mg Q2H PRN IV ANXIETY Last administered on 09/22/16 16:46 ; Admin Dose 1 MG; Start 09/09/16 at 20:00 Glucose (Glutose) 15 gm Q15M PRN PO DECREASED GLUCOSE; Start 09/09/16 at 20:30 Glucose (Glutose) 22.5 gm Q15M PRN PO DECREASED GLUCOSE; Start 09/09/16 at 20: 30 Dextrose (D50w Syringe) 25 ml Q15M PRN IV DECREASED GLUCOSE Last administered on 09/20/16 13:44; Admin Dose 25 ML; Start 09/09/16 at 20:30 Dextrose (D50w Syringe) 50 ml Q15M PRN IV DECREASED GLUCOSE; Start 09/09/16 at 20:30 Glucagon (Glucagen) 1 mg Q15M PRN IM DECREASED GLUCOSE; Start 09/09/16 at 20:30 Glucose (Glutose) 15 gm Q15M PRN BUCCAL DECREASED GLUCOSE; Start 09/09/16 at 20 :30 Famotidine (Pepcid Iv) 20 mg DAILY IV Last administered on 09/22/16 10:37; Admin Dose 20 MG; Start 09/10/16 at 09:00 Aspirin 81 mg 81 mg DAILY PO Last administered on 09/22/16 10:37; Admin Dose 81 MG; Start 09/12/16 at 09:00 Ceftriaxone Sodium (Rocephin) 50 ml @ 100 mls/hr Q24H IVPB Last administered on 09/22/16 16:19; Admin Dose 100 MLS/HR; Start 09/12/16 at 16:00 Insulin Aspart NOVOLOG *MODERATE* ALGORI... Q4 SC Last administered on 05:58; Admin Dose 2 UNIT; Start 09/13/16 at 13:00 Doxycycline Hyclate/Sodium Chloride (Vibramycin/NS) 250 ml @ 250 mls/hr Q12 IVPB Last administered on 09/22/16 20:23; Admin Dose 250 MLS/HR; Start at 15:00 Hydralazine HCl (Apresoline) 10 mg Q4H PRN IV SBP >160 Last administered on 09/22 16:27; Admin Dose 10 MG; Start 09/17/16 at 07:00 Docusate Sodium (Colace Liquid Cup) 100 mg Q12 PO Last administered on 20:33; Admin Dose 100 MG; Start 09/17/16 at 09:00 Metoprolol Tartrate (Lopressor) 50 mg BID PO Last administered on 09/22/16 20: 35; Admin Dose 50 MG; Start 09/19/16 at 21:00 Hydralazine HCl (Apresoline) 25 mg Q8 PO Last administered on 09/23/16 06:07; Admin Dose 25 MG; Start 09/19/16 at 14:00 Haloperidol (Haldol) 2 mg Q4H PRN IM AGITATION Last administered on 09/22/16 05 :17; Admin Dose 2 MG; Start 09/20/16 at 05:30 Insulin Glargine (Lantus) 10 unit QAM SC Last administered on 09/22/16t 09:24; Admin Dose 10 UNIT; Start 09/20/16 at 09:00 DEANNA MONSALVE Sep 23, 2016 09:06
[2016-09-23] MEDS: METOPROLOL 50 MG TAB PO SCH ×2 (09:19→20:48)
[2016-09-23] MEDS: FAMOTIDINE 20 MG INJ IV SCH (09:19)
[2016-09-23] MEDS: hydrALAzine 20 MG INJ IV PRN ×3 (09:19→21:53)
[2016-09-23] MEDS: DOXYCYCLINE 100 MG in SOD CHLORIDE 0.9% 250 ML IVPB SCH ×2 (09:19→21:55)
[2016-09-23] MEDS: DOCUSATE SODIUM 10 MG/ML (10ML CUP) PO SCH ×2 (09:19→20:48)
[2016-09-23] MEDS: ASPIRIN 81 MG TAB PO SCH (09:19)
[2016-09-23] MEDS: INSULIN GLARGINE [LANtus] 3 ML PEN SC SCH (09:21)
--- NOTE | 2016-09-23 10:51 | PN ---
Date/Time of Note Date/Time of Note DATE: 09/23/16 TIME: 10:35 Assessment/Plan VTE Prophylaxis VTE Prophylaxis Intervention: SCD's VTE Contraindication Reason: thrombocytopenia Lines/Catheters IV Catheter Type (from Nrsg): Central Line Central line still needed: Yes Urinary Cath still in place: Yes Reason Cath still needed: other (indicate) Assessment/Plan Assessment/Plan 1. s/p Septic shock - 2/2 Ecoli UTI /Bacteremia - 2. Acute renal failure r/o CKD- 2/2 to ATN from sepsis - improving now 3. Type II DM - controlled on SSI 4. Metabolic / Lactic acidosis 2/2 #1: resolved 5. Acute Hypercapnic and Hypoxemic Resp failure - s/p self extubation - on BiPAP 6. NSTEMI versus elevated trop - CV monitoring. ECHO = EF 45-50 by echo this admit. 7. Thrombocytopenia likely associated with sepsis vs meds vs mild DIC: resolved / HIT antibody negative/ s/p FFP and platelet transfusion. 8. Severe Iron deficiency: + occult test stool. No signs of GI bleeding presently. S/p EGD with gastritis findings only. s/p pRBC transfusion PLAN: - Continue bipap therapy - Consider low dose lasix if ok with nephrology - Continue broad spectrum abx / Appreciate ID consult, f/u rec's - Continue ICU care for now - Continue serial labs and monitoring PROPHYLAXIS: Pepcid / SCDS CRITICAL CARE TIME: >35 mins Subjective 24 Hr Interval Summary Free Text/Dictation remains on Bipap no new issues looks comfortable but very lethargic and sleepy Exam/Review of Systems Vital Signs Vitals Vital Signs Date Time Temp Pulse Resp B/P Pulse Ox O2 Delivery O2 Flow Rate FiO2 09/23/16 09:52 84 100 30 09/23/16 06:55 26 09/23/16 04:01 97.7 09/23/16 04:00 168/93 09/22/16 16:00 BIPAP 09/21/16 14:00 3.0 Intake and Output 09/22/16 09/22/16 09/23/16 15:00 23:00 07:00 Intake Total 190 ml 430 ml 600 ml Output Total 110 ml 1680 ml 480 ml Balance 80 ml -1250 ml 120 ml Exam Constitutional: frail, on BiPAP presently Head: normocephalic Eyes: PERRL, icteric Respiratory: clear to auscultation, diminished breath sounds Cardiovascular: regular rate and rhythm, No murmurs/extra sounds Gastrointestinal: bowel sounds, distended, other (large periumbilical hernia), soft Genitourinary - Female: other (montoya draining clear urine) Extremities: No edema Neurological: No nl mental status Results Result Diagram: 09/23/16 0600 09/23/16 0600 Results 24 hrs Laboratory Tests Test 09/22/16 12:18 09/22/16 16:57 09/22/16 17:48 09/22/16 20:42 Bedside Glucose 157 148 137 Arterial Blood HCO3 27.2 H Arterial Blood Base Excess 2.0 Arterial Blood Oxygen Saturation 97.5 Jarett Test ACCEPTAB Arterial Blood Gas Puncture Site Right Radial Arterial Blood Carboxyhemoglobin 0.1 Arterial Blood Date Drawn 09/22/2016 6:00:42 PM Arterial Blood Methemoglobin 0.3 Arterial Blood pCO2 (Temp correct) 44.8 Arterial Blood pH (Temp corrected) 7.401 Arterial Blood pO2 (Temp corrected) 94.7 H Blood Gas A-a O2 Differential 66.6 H Blood Gas Actual Respiration Rate 34 Blood Gas IPAP/EPAP Ratio 15 Blood Gas Modality MASK - BIPAP Blood Gas Notified Time 09/22/2016 6:04:52 PM Blood Gas Notified Whom Blood Gas Respiration Rate 14.0 Blood Gas Specimen Source Blood arterial Blood Gas Temperature 37.0 FiO2 30.0 Oxyhemoglobin Percent 97.1 Total Hemoglobin 13.2 Test 09/23/16 01:18 09/23/16 05:00 09/23/16 05:43 09/23/16 06:00 Bedside Glucose 142 157 Arterial Blood HCO3 28.1 H Arterial Blood Base Excess 2.8 Arterial Blood Oxygen Saturation 97.9 Jarett Test ACCEPTAB Arterial Blood Gas Puncture Site Left Radial Arterial Blood Carboxyhemoglobin 0.4 Arterial Blood Date Drawn 09/23/2016 4:35:26 AM Arterial Blood Methemoglobin 0.4 Arterial Blood pCO2 (Temp correct) 46.2 H Arterial Blood pH (Temp corrected) 7.402 Arterial Blood pO2 (Temp corrected) 110.2 H Blood Gas A-a O2 Differential 49.4 H Blood Gas Actual Respiration Rate 22 Blood Gas IPAP/EPAP Ratio 15 Blood Gas Modality BIPAP - S/T Blood Gas Notified Time 09/23/2016 4:53:30 AM Blood Gas Notified Whom RTR Blood Gas Pressure Support 10 Blood Gas Respiration Rate 14.0 Blood Gas Specimen Source Blood arterial Blood Gas Temperature 37.0 FiO2 30.0 Oxyhemoglobin Percent 97.1 Total Hemoglobin 12.6 Anion Gap 12 Basophils # 0.1 Basophils % 0.9 Blood Urea Nitrogen 36 H Calcium Level 8.3 L Carbon Dioxide Level 31 Chloride Level 110 Creatinine 1.29 H Eosinophils # 0.3 Eosinophils % 4.4 Glucose Level 173 Hematocrit 34.0 L Hemoglobin 10.9 L Lymphocytes # 1.7 Lymphocytes % 22.1 Mean Corpuscular Hemoglobin 29.2 Mean Corpuscular Hemoglobin Concent 32.1 Mean Corpuscular Volume 91.2 Mean Platelet Volume 12.0 H Monocytes # 0.9 Monocytes % 12.6 H Neutrophils # 4.4 Neutrophils % 59.5 Nucleated Red Blood Cells # 0.0 Nucleated Red Blood Cells % 0.0 Platelet Count 252 Potassium Level 4.3 Red Blood Count 3.73 L Red Cell Distribution Width 16.3 H Sodium Level 149 H White Blood Count 7.5 Test 09/23/16 08:27 Bedside Glucose 140 Medications Medications Current Medications Ondansetron HCl (Zofran Inj) 4 mg Q6H PRN IV NAUSEA AND/OR VOMITING Last administered on 09/10/16 23:03; Admin Dose 4 MG; Start 09/09/16 at 20:00 Nitroglycerin (Nitroglycerin (Sl Tab) 0.4 Mg) 1 tab Q5M PRN SL CHEST PAIN; Start 09/09/16 at 20:00 Acetaminophen (Tylenol Liquid) 650 mg Q6H PRN PO PAIN LEVEL 1-3 OR FEVER Last administered on 09/23/16 03:49; Admin Dose 650 MG; Start 09/09/16 at 20:00 Morphine Sulfate (morphine) 2 mg Q4H PRN IV PAIN LEVEL 7-10 Last administered on 09/22/16 18:21; Admin Dose 2 MG; Start 09/09/16 at 20:00 Lorazepam (Ativan) 1 mg Q2H PRN IV ANXIETY Last administered on 09/22/16 16:46 ; Admin Dose 1 MG; Start 09/09/16 at 20:00 Glucose (Glutose) 15 gm Q15M PRN PO DECREASED GLUCOSE; Start 09/09/16 at 20:30 Glucose (Glutose) 22.5 gm Q15M PRN PO DECREASED GLUCOSE; Start 09/09/16 at 20: 30 Dextrose (D50w Syringe) 25 ml Q15M PRN IV DECREASED GLUCOSE Last administered on 09/20/16 13:44; Admin Dose 25 ML; Start 09/09/16 at 20:30 Dextrose (D50w Syringe) 50 ml Q15M PRN IV DECREASED GLUCOSE; Start 09/09/16 at 20:30 Glucagon (Glucagen) 1 mg Q15M PRN IM DECREASED GLUCOSE; Start 09/09/16 at 20:30 Glucose (Glutose) 15 gm Q15M PRN BUCCAL DECREASED GLUCOSE; Start 09/09/16 at 20 :30 Famotidine (Pepcid Iv) 20 mg DAILY IV Last administered on 09/23/16 09:19; Admin Dose 20 MG; Start 09/10/16 at 09:00 Aspirin 81 mg 81 mg DAILY PO Last administered on 09/23/16 09:19; Admin Dose 81 MG; Start 09/12/16 at 09:00 Ceftriaxone Sodium (Rocephin) 50 ml @ 100 mls/hr Q24H IVPB Last administered on 09/22/16 16:19; Admin Dose 100 MLS/HR; Start 09/12/16 at 16:00 Insulin Aspart NOVOLOG *MODERATE* ALGORI... Q4 SC Last administered on 05:58; Admin Dose 2 UNIT; Start 09/13/16 at 13:00 Doxycycline Hyclate/Sodium Chloride (Vibramycin/NS) 250 ml @ 250 mls/hr Q12 IVPB Last administered on 09/23/16 09:19; Admin Dose 250 MLS/HR; Start at 15:00 Hydralazine HCl (Apresoline) 10 mg Q4H PRN IV SBP >160 Last administered on 09/23 09:19; Admin Dose 10 MG; Start 09/17/16 at 07:00 Docusate Sodium (Colace Liquid Cup) 100 mg Q12 PO Last administered on 09:19; Admin Dose 100 MG; Start 09/17/16 at 09:00 Metoprolol Tartrate (Lopressor) 50 mg BID PO Last administered on 09/23/16 09: 19; Admin Dose 50 MG; Start 09/19/16 at 21:00 Hydralazine HCl (Apresoline) 25 mg Q8 PO Last administered on 09/23/16 06:07; Admin Dose 25 MG; Start 09/19/16 at 14:00 Haloperidol (Haldol) 2 mg Q4H PRN IM AGITATION Last administered on 09/22/16 05 :17; Admin Dose 2 MG; Start 09/20/16 at 05:30 Insulin Glargine (Lantus) 10 unit QAM SC Last administered on 09/23/16 09:21; Admin Dose 10 UNIT; Start 09/20/16 at 09:00 Procedures Procedures PROCEDURE: XR Chest. CLINICAL INDICATION: Shortness of breath. TECHNIQUE: Single frontal view. COMPARISON: 09/21/2016. FINDINGS: The right internal jugular vein catheter and nasogastric tube are in satisfactory position. There is atelectasis at the lung bases, unchanged. The lungs are otherwise clear. The heart size is normal. Small bilateral pleural effusions are unchanged. There is no pneumothorax. IMPRESSION: 1. Nasogastric tube and right IJ catheter in satisfactory position. 2. Atelectasis at the lung bases, unchanged. 3. Small bilateral pleural effusions, unchanged. RPTAT: QQ .Trevor Harper MD, MD Date Time Electronically viewed and signed by .Trevor Harper MD, MD on 09/23/2016 07:20 .R/ CC: ZANA ESTEVES MD, BOLATITO M. Sep 23, 2016 10:45
--- NOTE | 2016-09-23 11:50 | CONS ---
Date/Time of Note Date/Time of Note DATE: 09/23/16 TIME: 11:48 Assessment/Plan Assessment/Plan Chief Complaint/Hosp Course SUBJECTIVE: No events overnight. No fevers.On BiPAP, more awake, looks comfortable. ANTIMICROBIALS: The patient is on: 1. Doxycycline 2. Rocephin. INDWELLINGS: The patient has NG tube, Alaniz catheter, right IJ. PHYSICAL EXAMINATION: GENERAL: Fragile, elderly woman who is lethargic, comfortable on BiPAP. HEENT: Head atraumatic, normocephalic. Sclerae anicteric. Buccal mucosa dry. NECK: Supple, trachea midline. CHEST: Rise symmetrical. Breath sounds diminished to bases. HEART: S1, S2. ABDOMEN: Soft, bowel tones present. EXTREMITIES: Without cyanosis. ASSESSMENT: 1. Resolving sepsis status post shock. 2. Status post Escherichia coli urinary tract infection with bacteremia. 3. Acute respiratory failure, status post extubated, now on BiPAP. 4. Acute renal failure. 5. Anemia. 6. Encephalopathy. PLAN: The patient remains stable on Bipap, no fevers, will dc antibiotics in am. Continue management as per primary team and consultants. [facility] staff Problems: Consultation Date/Type/Reason Admit Date/Time Sep 09, 2016 at 19:47 Initial Consult Date 09/13/16 Type of Consultation: ID Referring Provider: EMILIANO HENDRICKS Exam/Review of Systems Vital Signs Vitals Vital Signs Date Time Temp Pulse Resp B/P Pulse Ox O2 Delivery O2 Flow Rate FiO2 09/23/16 11:27 77 100 30 09/23/16 11:00 25 156/74 BIPAP 09/23/16 08:00 97.3 09/21/16 14:00 3.0 Intake and Output 09/22/16 09/22/16 09/23/16 15:00 23:00 07:00 Intake Total 190 ml 430 ml 640 ml Output Total 110 ml 1680 ml 605 ml Balance 80 ml -1250 ml 35 ml Results Result Diagram: 09/23/16 0600 09/23/16 0600 Results 24 hrs Laboratory Tests Test 09/22/16 12:18 09/22/16 16:57 09/22/16 17:48 09/22/16 20:42 Bedside Glucose 157 148 137 Arterial Blood HCO3 27.2 H Arterial Blood Base Excess 2.0 Arterial Blood Oxygen Saturation 97.5 Jarett Test ACCEPTAB Arterial Blood Gas Puncture Site Right Radial Arterial Blood Carboxyhemoglobin 0.1 Arterial Blood Date Drawn 09/22/2016 6:00:42 PM Arterial Blood Methemoglobin 0.3 Arterial Blood pCO2 (Temp correct) 44.8 Arterial Blood pH (Temp corrected) 7.401 Arterial Blood pO2 (Temp corrected) 94.7 H Blood Gas A-a O2 Differential 66.6 H Blood Gas Actual Respiration Rate 34 Blood Gas IPAP/EPAP Ratio 15 Blood Gas Modality MASK - BIPAP Blood Gas Notified Time 09/22/2016 6:04:52 PM Blood Gas Notified Whom MH Blood Gas Respiration Rate 14.0 Blood Gas Specimen Source Blood arterial Blood Gas Temperature 37.0 FiO2 30.0 Oxyhemoglobin Percent 97.1 Total Hemoglobin 13.2 Test 09/23/16 01:18 09/23/16 05:00 09/23/16 05:43 09/23/16 06:00 Bedside Glucose 142 157 Arterial Blood HCO3 28.1 H Arterial Blood Base Excess 2.8 Arterial Blood Oxygen Saturation 97.9 Jarett Test ACCEPTAB Arterial Blood Gas Puncture Site Left Radial Arterial Blood Carboxyhemoglobin 0.4 Arterial Blood Date Drawn 09/23/2016 4:35:26 AM Arterial Blood Methemoglobin 0.4 Arterial Blood pCO2 (Temp correct) 46.2 H Arterial Blood pH (Temp corrected) 7.402 Arterial Blood pO2 (Temp corrected) 110.2 H Blood Gas A-a O2 Differential 49.4 H Blood Gas Actual Respiration Rate 22 Blood Gas IPAP/EPAP Ratio 02/12 Blood Gas Modality BIPAP - S/T Blood Gas Notified Time 09/23/2016 4:53:30 AM Blood Gas Notified Whom RTR Blood Gas Pressure Support 10 Blood Gas Respiration Rate 14.0 Blood Gas Specimen Source Blood arterial Blood Gas Temperature 37.0 FiO2 30.0 Oxyhemoglobin Percent 97.1 Total Hemoglobin 12.6 Anion Gap 12 Basophils # 0.1 Basophils % 0.9 Blood Urea Nitrogen 36 H Calcium Level 8.3 L Carbon Dioxide Level 31 Chloride Level 110 Creatinine 1.29 H Eosinophils # 0.3 Eosinophils % 4.4 Glucose Level 173 Hematocrit 34.0 L Hemoglobin 10.9 L Lymphocytes # 1.7 Lymphocytes % 22.1 Mean Corpuscular Hemoglobin 29.2 Mean Corpuscular Hemoglobin Concent 32.1 Mean Corpuscular Volume 91.2 Mean Platelet Volume 12.0 H Monocytes # 0.9 Monocytes % 12.6 H Neutrophils # 4.4 Neutrophils % 59.5 Nucleated Red Blood Cells # 0.0 Nucleated Red Blood Cells % 0.0 Platelet Count 252 Potassium Level 4.3 Red Blood Count 3.73 L Red Cell Distribution Width 16.3 H Sodium Level 149 H White Blood Count 7.5 Test 09/23/16 08:27 Bedside Glucose 140 Medications Medications Current Medications Ondansetron HCl (Zofran Inj) 4 mg Q6H PRN IV NAUSEA AND/OR VOMITING Last administered on 09/10/16 23:03; Admin Dose 4 MG; Start 09/09/16 at 20:00 Nitroglycerin (Nitroglycerin (Sl Tab) 0.4 Mg) 1 tab Q5M PRN SL CHEST PAIN; Start 09/09/16 at 20:00 Acetaminophen (Tylenol Liquid) 650 mg Q6H PRN PO PAIN LEVEL 1-3 OR FEVER Last administered on 09/23/16 03:49; Admin Dose 650 MG; Start 09/09/16 at 20:00 Morphine Sulfate (morphine) 2 mg Q4H PRN IV PAIN LEVEL 7-10 Last administered on 09/22/16 18:21; Admin Dose 2 MG; Start 09/09/16 at 20:00 Lorazepam (Ativan) 1 mg Q2H PRN IV ANXIETY Last administered on 09/22/16 16:46 ; Admin Dose 1 MG; Start 09/09/16 at 20:00 Glucose (Glutose) 15 gm Q15M PRN PO DECREASED GLUCOSE; Start 09/09/16 at 20:30 Glucose (Glutose) 22.5 gm Q15M PRN PO DECREASED GLUCOSE; Start 09/09/16 at 20: 30 Dextrose (D50w Syringe) 25 ml Q15M PRN IV DECREASED GLUCOSE Last administered on 09/20/16 13:44; Admin Dose 25 ML; Start 09/09/16 at 20:30 Dextrose (D50w Syringe) 50 ml Q15M PRN IV DECREASED GLUCOSE; Start 09/09/16 at 20:30 Glucagon (Glucagen) 1 mg Q15M PRN IM DECREASED GLUCOSE; Start 09/09/16 at 20:30 Glucose (Glutose) 15 gm Q15M PRN BUCCAL DECREASED GLUCOSE; Start 09/09/16 at 20 :30 Famotidine (Pepcid Iv) 20 mg DAILY IV Last administered on 09/23/16 09:19; Admin Dose 20 MG; Start 09/10/16 at 09:00 Aspirin 81 mg 81 mg DAILY PO Last administered on 09/23/16 09:19; Admin Dose 81 MG; Start 09/12/16 at 09:00 Ceftriaxone Sodium (Rocephin) 50 ml @ 100 mls/hr Q24H IVPB Last administered on 09/22/16 16:19; Admin Dose 100 MLS/HR; Start 09/12/16 at 16:00 Insulin Aspart NOVOLOG *MODERATE* ALGORI... Q4 SC Last administered on 05:58; Admin Dose 2 UNIT; Start 09/13/16 at 13:00 Doxycycline Hyclate/Sodium Chloride (Vibramycin/NS) 250 ml @ 250 mls/hr Q12 IVPB Last administered on 09/23/16 09:19; Admin Dose 250 MLS/HR; Start at 15:00 Hydralazine HCl (Apresoline) 10 mg Q4H PRN IV SBP >160 Last administered on 09/23 09:19; Admin Dose 10 MG; Start 09/17/16 at 07:00 Docusate Sodium (Colace Liquid Cup) 100 mg Q12 PO Last administered on 09:19; Admin Dose 100 MG; Start 09/17/16 at 09:00 Metoprolol Tartrate (Lopressor) 50 mg BID PO Last administered on 09/23/16 09: 19; Admin Dose 50 MG; Start 09/19/16 at 21:00 Hydralazine HCl (Apresoline) 25 mg Q8 PO Last administered on 09/23/16 06:07; Admin Dose 25 MG; Start 09/19/16 at 14:00 Haloperidol (Haldol) 2 mg Q4H PRN IM AGITATION Last administered on 09/22/16 05 :17; Admin Dose 2 MG; Start 09/20/16 at 05:30 Insulin Glargine (Lantus) 10 unit QAM SC Last administered on 09/23/16 09:21; Admin Dose 10 UNIT; Start 09/20/16 at 09:00 CHLOE MONROY NP Sep 23, 2016 11:49
[2016-09-23] MEDS: FUROSEMIDE 20 MG INJ IV SCH (13:26)
--- NOTE | 2016-09-23 15:27 | CONS ---
Date/Time of Note Date/Time of Note DATE: 09/23/16 TIME: 15:22 Assessment/Plan Assessment/Plan Chief Complaint/Hosp Course IMPRESSION: 1. Positive troponin, assess significance, assess for true acute coronary syndrome.-now downtrending in setting ongoing renal failure 2. Hypotension, shock state. Rule out cardiac etiology-EF 45-50 by echo this admit-improved off of pressors 3. Abnormal electrocardiogram, assess for acute coronary syndrome. 4. Respiratory failure s/p extubation on BIPAP 5. Leukocytosis. 6. Anemia. 7. Thrombocytopenia-improved 8. Renal failure-ongoing/stable to slightly improved 9. Bacteremia with gram negative rods. 10.CHF-systolic and diastolic acute EF 45-50 by echo this admit REcc: -Tele -continue abx's and f/u ca data -Continue asa -Continue BB and increase hydralazine to improve BP control -Follow volume status closely on gentle lasix -Continue BIPAP resp support Problems: Consultation Date/Type/Reason Admit Date/Time Sep 09, 2016 at 19:47 Initial Consult Date 09/11/16 Type of Consultation: Cardiology Reason for Consultation hypotension Referring Provider: EMILIANO HENDRICKS Exam/Review of Systems Vital Signs Vitals Vital Signs Date Time Temp Pulse Resp B/P Pulse Ox O2 Delivery O2 Flow Rate FiO2 09/23/16 13:00 68 20 165/69 100 BIPAP 09/23/16 12:59 30 09/23/16 12:00 97.2 09/21/16 14:00 3.0 Intake and Output 09/22/16 09/22/16 09/23/16 15:00 23:00 07:00 Intake Total 190 ml 430 ml 640 ml Output Total 110 ml 1680 ml 605 ml Balance 80 ml -1250 ml 35 ml Exam Review of Systems: CONSTITUTIONAL: No fevers, chills. PULMONARY: ON BIPAP CARDIOVASCULAR: No chest pain/palpitations GASTROINTESTINAL: No nausea/vomiting. GENITOURINARY: No hematuria/dysuria. MUSCULOSKELETAL: No myagias/arthalgias. PSYCHIATRIC: The patient denies depression. NEUROLOGIC: No weakness Constitutional: alert Psych: no complaints Head: normocephalic ENMT: mucosa pink and moist Neck: jvd (9 cm water), supple Respiratory: diminished breath sounds Cardiovascular: regular rate and rhythm Gastrointestinal: non-tender, soft Musculoskeletal: muscle tone (normal) Extremities: edema (none) Neurological: other (No focal deficits) Results Result Diagram: 09/23/16 0600 09/23/16 0600 Results 24 hrs Laboratory Tests Test 09/22/16 16:57 09/22/16 17:48 09/22/16 20:42 09/23/16 01:18 Bedside Glucose 148 137 142 Arterial Blood HCO3 27.2 H Arterial Blood Base Excess 2.0 Arterial Blood Oxygen Saturation 97.5 Jarett Test ACCEPTAB Arterial Blood Gas Puncture Site Right Radial Arterial Blood Carboxyhemoglobin 0.1 Arterial Blood Date Drawn 09/22/2016 6:00:42 PM Arterial Blood Methemoglobin 0.3 Arterial Blood pCO2 (Temp correct) 44.8 Arterial Blood pH (Temp corrected) 7.401 Arterial Blood pO2 (Temp corrected) 94.7 H Blood Gas A-a O2 Differential 66.6 H Blood Gas Actual Respiration Rate 34 Blood Gas IPAP/EPAP Ratio 15/5 Blood Gas Modality MASK - BIPAP Blood Gas Notified Time 09/22/2016 6:04:52 PM Blood Gas Notified Whom MH Blood Gas Respiration Rate 14.0 Blood Gas Specimen Source Blood arterial Blood Gas Temperature 37.0 FiO2 30.0 Oxyhemoglobin Percent 97.1 Total Hemoglobin 13.2 Test 09/23/16 05:00 09/23/16 05:43 09/23/16 06:00 09/23/16 08:27 Arterial Blood HCO3 28.1 H Arterial Blood Base Excess 2.8 Arterial Blood Oxygen Saturation 97.9 Jarett Test ACCEPTAB Arterial Blood Gas Puncture Site Left Radial Arterial Blood Carboxyhemoglobin 0.4 Arterial Blood Date Drawn 09/23/2016 4:35:26 AM Arterial Blood Methemoglobin 0.4 Arterial Blood pCO2 (Temp correct) 46.2 H Arterial Blood pH (Temp corrected) 7.402 Arterial Blood pO2 (Temp corrected) 110.2 H Blood Gas A-a O2 Differential 49.4 H Blood Gas Actual Respiration Rate 22 Blood Gas IPAP/EPAP Ratio 15/5 Blood Gas Modality BIPAP - S/T Blood Gas Notified Time 09/23/2016 4:53:30 AM Blood Gas Notified Whom RTR Blood Gas Pressure Support 10 Blood Gas Respiration Rate 14.0 Blood Gas Specimen Source Blood arterial Blood Gas Temperature 37.0 FiO2 30.0 Oxyhemoglobin Percent 97.1 Total Hemoglobin 12.6 Bedside Glucose 157 140 Anion Gap 12 Basophils # 0.1 Basophils % 0.9 Blood Urea Nitrogen 36 H Calcium Level 8.3 L Carbon Dioxide Level 31 Chloride Level 110 Creatinine 1.29 H Eosinophils # 0.3 Eosinophils % 4.4 Glucose Level 173 Hematocrit 34.0 L Hemoglobin 10.9 L Lymphocytes # 1.7 Lymphocytes % 22.1 Mean Corpuscular Hemoglobin 29.2 Mean Corpuscular Hemoglobin Concent 32.1 Mean Corpuscular Volume 91.2 Mean Platelet Volume 12.0 H Monocytes # 0.9 Monocytes % 12.6 H Neutrophils # 4.4 Neutrophils % 59.5 Nucleated Red Blood Cells # 0.0 Nucleated Red Blood Cells % 0.0 Platelet Count 252 Potassium Level 4.3 Red Blood Count 3.73 L Red Cell Distribution Width 16.3 H Sodium Level 149 H White Blood Count 7.5 Test 09/23/16 12:00 Bedside Glucose 149 Medications Medications Current Medications Ondansetron HCl (Zofran Inj) 4 mg Q6H PRN IV NAUSEA AND/OR VOMITING Last administered on 09/10/16 23:03; Admin Dose 4 MG; Start 09/09/16 at 20:00 Nitroglycerin (Nitroglycerin (Sl Tab) 0.4 Mg) 1 tab Q5M PRN SL CHEST PAIN; Start 09/09/16 at 20:00 Acetaminophen (Tylenol Liquid) 650 mg Q6H PRN PO PAIN LEVEL 1-3 OR FEVER Last administered on 09/23/16 03:49; Admin Dose 650 MG; Start 09/09/16 at 20:00 Morphine Sulfate (morphine) 2 mg Q4H PRN IV PAIN LEVEL 7-10 Last administered on 09/22/16 18:21; Admin Dose 2 MG; Start 09/09/16 at 20:00 Lorazepam (Ativan) 1 mg Q2H PRN IV ANXIETY Last administered on 09/22/16 16:46 ; Admin Dose 1 MG; Start 09/09/16 at 20:00 Glucose (Glutose) 15 gm Q15M PRN PO DECREASED GLUCOSE; Start 09/09/16 at 20:30 Glucose (Glutose) 22.5 gm Q15M PRN PO DECREASED GLUCOSE; Start 09/09/16 at 20: 30 Dextrose (D50w Syringe) 25 ml Q15M PRN IV DECREASED GLUCOSE Last administered on 09/20/16 13:44; Admin Dose 25 ML; Start 09/09/16 at 20:30 Dextrose (D50w Syringe) 50 ml Q15M PRN IV DECREASED GLUCOSE; Start 09/09/16 at 20:30 Glucagon (Glucagen) 1 mg Q15M PRN IM DECREASED GLUCOSE; Start 09/09/16 at 20:30 Glucose (Glutose) 15 gm Q15M PRN BUCCAL DECREASED GLUCOSE; Start 09/09/16 at 20 :30 Famotidine (Pepcid Iv) 20 mg DAILY IV Last administered on 09/23/16 09:19; Admin Dose 20 MG; Start 09/10/16 at 09:00 Aspirin 81 mg 81 mg DAILY PO Last administered on 09/23/16 09:; Admin Dose 81 MG; Start 09/12/16 at 09:00 Ceftriaxone Sodium (Rocephin) 50 ml @ 100 mls/hr Q24H IVPB Last administered on 09/22/16 16:19; Admin Dose 100 MLS/HR; Start 09/12/16 at 16:00; Stop 09/24/16 at 11:30 Insulin Aspart NOVOLOG *MODERATE* ALGORI... Q4 SC Last administered on 12:17; Admin Dose 2 UNIT; Start 09/13/16 at 13:00 Doxycycline Hyclate/Sodium Chloride (Vibramycin/NS) 250 ml @ 250 mls/hr Q12 IVPB Last administered on 09/23/16 09:19; Admin Dose 250 MLS/HR; Start at 15:00; Stop 09/24/16 at 11:30 Hydralazine HCl (Apresoline) 10 mg Q4H PRN IV SBP >160 Last administered on 09/23 09:19; Admin Dose 10 MG; Start 09/17/16 at 07:00 Docusate Sodium (Colace Liquid Cup) 100 mg Q12 PO Last administered on 09:19; Admin Dose 100 MG; Start 09/17/16 at 09:00 Metoprolol Tartrate (Lopressor) 50 mg BID PO Last administered on 09/23/16 09: 19; Admin Dose 50 MG; Start 09/19/16 at 21:00 Hydralazine HCl (Apresoline) 25 mg Q8 PO Last administered on 09/23/16 13:26; Admin Dose 25 MG; Start 09/19/16 at 14:00 Haloperidol (Haldol) 2 mg Q4H PRN IM AGITATION Last administered on 09/22/16 05 :17; Admin Dose 2 MG; Start 09/20/16 at 05:30 Insulin Glargine (Lantus) 10 unit QAM SC Last administered on 09/23/16 09:21; Admin Dose 10 UNIT; Start 09/20/16 at 09:00 Furosemide (Lasix) 20 mg DAILY IV Last administered on 09/23/16 13:26; Admin Dose 20 MG; Start 09/23/16 at 13:30 ALLISON CONTRERAS Sep 23, 2016 15:27
[2016-09-23] MEDS: CEFTRIAXONE 1 GM/50 ML (PMX) 50 ML IVPB SCH (16:18)
--- NOTE | 2016-09-23 18:35 | CONS ---
Date/Time of Note Date/Time of Note DATE: 09/23/16 TIME: 18:34 Assessment/Plan Assessment/Plan Chief Complaint/Hosp Course IMPRESSION: thrombocytopenia in pt with severe sepsis, exposed to multiple meds with pos thrombocytopenic effect, including VANCO, ZOSYN, HEPARIN,CEFAZOLIN- RESOLVED NO EVIDENCE DIC cont to monitor blood count closely transfuse if platelet count less [place] [id number], considering severe sepsis HIPA- NEG PLATELET COUNT IMPROVING Leukocytosis. REACTIVE MONITOR IMPROVING Anemia. C/W ACD MONITOR BLOOD COUNT CLOSELY TRANSFUSE NEEDED Severe Sepsis with septic shock 2/2 Ecoli UTI /Bacteremia Acute renal failure - 2/2 to ATN from sepsis Type II DM - Hyperglycemic on D5W Metabolic / Lactic acidosis 2/2 #1 Acute resp failure now ventilator dependent NSTEMI versus demand ischemia Positive troponin, assess significance, assess for true acute coronary syndrome. Metabolic acidosis respiratory failure, vent dependent incomplete database Thank you for allowing me to take part in the care of this patient. I will continue to follow along very closely with you. Further recommendations will be made as the patient progresses through her inpatient hospital clinical course. Problems: Consultation Date/Type/Reason Admit Date/Time Sep 09, 2016 at 19:47 Initial Consult Date 09/13/16 Type of Consultation: hemeon Referring Provider: EMILIANO HENDRICKS 24 HR Interval Summary Free Text/Dictation remains on Bipap no new issues looks comfortable Exam/Review of Systems Vital Signs Vitals Vital Signs Date Time Temp Pulse Resp B/P Pulse Ox O2 Delivery O2 Flow Rate FiO2 09/23/16 18:00 78 23 177/67 100 BIPAP 09/23/16 17:13 30 09/23/16 16:00 97.7 09/21/16 14:00 3.0 Intake and Output 09/22/16 09/22/16 09/23/16 15:00 23:00 07:00 Intake Total 190 ml 430 ml 640 ml Output Total 110 ml 1680 ml 605 ml Balance 80 ml -1250 ml 35 ml Exam Constitutional: frail, on BiPAP presently Head: normocephalic Eyes: PERRL, icteric Respiratory: clear to auscultation, diminished breath sounds Cardiovascular: regular rate and rhythm, No murmurs/extra sounds Gastrointestinal: bowel sounds, distended, other (large periumbilical hernia), soft Genitourinary - Female: other (montoya draining clear urine) Extremities: No edema Neurological: No nl mental status Results Result Diagram: 09/23/16 0600 09/23/16 0600 Results 24 hrs Laboratory Tests Test 09/22/16 20:42 09/23/16 01:18 09/23/16 05:00 09/23/16 05:43 Bedside Glucose 137 142 157 Arterial Blood HCO3 28.1 H Arterial Blood Base Excess 2.8 Arterial Blood Oxygen Saturation 97.9 Jarett Test ACCEPTAB Arterial Blood Gas Puncture Site Left Radial Arterial Blood Carboxyhemoglobin 0.4 Arterial Blood Date Drawn 09/23/2016 4:35:26 AM Arterial Blood Methemoglobin 0.4 Arterial Blood pCO2 (Temp correct) 46.2 H Arterial Blood pH (Temp corrected) 7.402 Arterial Blood pO2 (Temp corrected) 110.2 H Blood Gas A-a O2 Differential 49.4 H Blood Gas Actual Respiration Rate 22 Blood Gas IPAP/EPAP Ratio 15/5 Blood Gas Modality BIPAP - S/T Blood Gas Notified Time 09/23/2016 4:53:30 AM Blood Gas Notified Whom RTR Blood Gas Pressure Support 10 Blood Gas Respiration Rate 14.0 Blood Gas Specimen Source Blood arterial Blood Gas Temperature 37.0 FiO2 30.0 Oxyhemoglobin Percent 97.1 Total Hemoglobin 12.6 Test 09/23/16 06:00 09/23/16 08:27 09/23/16 12:00 09/23/16 16:15 Anion Gap 12 Basophils # 0.1 Basophils % 0.9 Blood Urea Nitrogen 36 H Calcium Level 8.3 L Carbon Dioxide Level 31 Chloride Level 110 Creatinine 1.29 H Eosinophils # 0.3 Eosinophils % 4.4 Glucose Level 173 Hematocrit 34.0 L Hemoglobin 10.9 L Lymphocytes # 1.7 Lymphocytes % 22.1 Mean Corpuscular Hemoglobin 29.2 Mean Corpuscular Hemoglobin Concent 32.1 Mean Corpuscular Volume 91.2 Mean Platelet Volume 12.0 H Monocytes # 0.9 Monocytes % 12.6 H Neutrophils # 4.4 Neutrophils % 59.5 Nucleated Red Blood Cells # 0.0 Nucleated Red Blood Cells % 0.0 Platelet Count 252 Potassium Level 4.3 Red Blood Count 3.73 L Red Cell Distribution Width 16.3 H Sodium Level 149 H White Blood Count 7.5 Bedside Glucose 140 149 85 Medications Medications Current Medications Ondansetron HCl (Zofran Inj) 4 mg Q6H PRN IV NAUSEA AND/OR VOMITING Last administered on 09/10/16 23:03; Admin Dose 4 MG; Start 09/09/16 at 20:00 Nitroglycerin (Nitroglycerin (Sl Tab) 0.4 Mg) 1 tab Q5M PRN SL CHEST PAIN; Start 09/09/16 at 20:00 Acetaminophen (Tylenol Liquid) 650 mg Q6H PRN PO PAIN LEVEL 1-3 OR FEVER Last administered on 09/23/16 03:49; Admin Dose 650 MG; Start 09/09/16 at 20:00 Morphine Sulfate (morphine) 2 mg Q4H PRN IV PAIN LEVEL 7-10 Last administered on 09/22/16 18:21; Admin Dose 2 MG; Start 09/09/16 at 20:00 Lorazepam (Ativan) 1 mg Q2H PRN IV ANXIETY Last administered on 09/22/16 16:46 ; Admin Dose 1 MG; Start 09/09/16 at 20:00 Glucose (Glutose) 15 gm Q15M PRN PO DECREASED GLUCOSE; Start 09/09/16 at 20:30 Glucose (Glutose) 22.5 gm Q15M PRN PO DECREASED GLUCOSE; Start 09/09/16 at 20: 30 Dextrose (D50w Syringe) 25 ml Q15M PRN IV DECREASED GLUCOSE Last administered on 09/20/16 13:44; Admin Dose 25 ML; Start 09/09/16 at 20:30 Dextrose (D50w Syringe) 50 ml Q15M PRN IV DECREASED GLUCOSE; Start 09/09/16 at 20:30 Glucagon (Glucagen) 1 mg Q15M PRN IM DECREASED GLUCOSE; Start 09/09/16 at 20:30 Glucose (Glutose) 15 gm Q15M PRN BUCCAL DECREASED GLUCOSE; Start 09/09/16 at 20 :30 Famotidine (Pepcid Iv) 20 mg DAILY IV Last administered on 09/23/16 09:19; Admin Dose 20 MG; Start 09/10/16 at 09:00 Aspirin 81 mg 81 mg DAILY PO Last administered on 09/23/16 09:19; Admin Dose 81 MG; Start 09/12/16 at 09:00 Ceftriaxone Sodium (Rocephin) 50 ml @ 100 mls/hr Q24H IVPB Last administered on 09/23/16 16:18; Admin Dose 100 MLS/HR; Start 09/12/16 at 16:00; Stop 09/24/16 at 11:30 Insulin Aspart NOVOLOG *MODERATE* ALGORI... Q4 SC Last administered on 12:17; Admin Dose 2 UNIT; Start 09/13/16 at 13:00 Doxycycline Hyclate/Sodium Chloride (Vibramycin/NS) 250 ml @ 250 mls/hr Q12 IVPB Last administered on 09/23/16 09:19; Admin Dose 250 MLS/HR; Start at 15:00; Stop 09/24/16 at 11:30 Hydralazine HCl (Apresoline) 10 mg Q4H PRN IV SBP >160 Last administered on 09/23 18:03; Admin Dose 10 MG; Start 09/17/16 at 07:00 Docusate Sodium (Colace Liquid Cup) 100 mg Q12 PO Last administered on 09:19; Admin Dose 100 MG; Start 09/17/16 at 09:00 Metoprolol Tartrate (Lopressor) 50 mg BID PO Last administered on 09/23/16 09: 19; Admin Dose 50 MG; Start 09/19/16 at 21:00 Haloperidol (Haldol) 2 mg Q4H PRN IM AGITATION Last administered on 09/22/16 05 :17; Admin Dose 2 MG; Start 09/20/16 at 05:30 Insulin Glargine (Lantus) 10 unit QAM SC Last administered on 09/23/16 09:21; Admin Dose 10 UNIT; Start 09/20/16 at 09:00 Furosemide (Lasix) 20 mg DAILY IV Last administered on 09/23/16 13:26; Admin Dose 20 MG; Start 09/23/16 at 13:30 Hydralazine HCl (Apresoline) 50 mg Q8 PO ; Start 09/23/16 at 22:00 JEFF FRANK MD Sep 23, 2016 18:35
--- NOTE | 2016-09-23 20:57 | CONS ---
Date/Time of Note Date/Time of Note DATE: 09/23/16 TIME: 20:56 Assessment/Plan Assessment/Plan Chief Complaint/Hosp Course IMPRESSION: 1. Patient has SHALOM BETTER 2. S/P ATN 3. S/P vdrf NOW ON BIPAP 4.. The patient has Escherichia coli bacteremia, E. coli urinary tract infection. 5 hypernatremia better 6 pleural effusion PLAN CK BMP lasix plan D5 WATER ck bmp Problems: Consultation Date/Type/Reason Admit Date/Time Sep 09, 2016 at 19:47 Initial Consult Date 09/11/16 Type of Consultation: renal Referring Provider: EMILIANO HENDRICKS 24 HR Interval Summary Constitutional: other (on bipap) Exam/Review of Systems Vital Signs Vitals Vital Signs Date Time Temp Pulse Resp B/P Pulse Ox O2 Delivery O2 Flow Rate FiO2 09/23/16 18:00 78 23 177/67 100 BIPAP 09/23/16 17:13 30 09/23/16 16:00 97.7 09/21/16 14:00 3.0 Intake and Output 09/22/16 09/22/16 09/23/16 15:00 23:00 07:00 Intake Total 190 ml 430 ml 640 ml Output Total 110 ml 1680 ml 605 ml Balance 80 ml -1250 ml 35 ml Exam Respiratory: diminished breath sounds Cardiovascular: regular rate and rhythm Gastrointestinal: soft Musculoskeletal: nl extremities to inspection Extremities: normal pulses Results Result Diagram: 09/23/16 0600 09/23/16 0600 Results 24 hrs Laboratory Tests Test 09/23/16 01:18 09/23/16 05:00 09/23/16 05:43 09/23/16 06:00 Bedside Glucose 142 157 Arterial Blood HCO3 28.1 H Arterial Blood Base Excess 2.8 Arterial Blood Oxygen Saturation 97.9 Jarett Test ACCEPTAB Arterial Blood Gas Puncture Site Left Radial Arterial Blood Carboxyhemoglobin 0.4 Arterial Blood Date Drawn 09/23/2016 4:35:26 AM Arterial Blood Methemoglobin 0.4 Arterial Blood pCO2 (Temp correct) 46.2 H Arterial Blood pH (Temp corrected) 7.402 Arterial Blood pO2 (Temp corrected) 110.2 H Blood Gas A-a O2 Differential 49.4 H Blood Gas Actual Respiration Rate 22 Blood Gas IPAP/EPAP Ratio 15/5 Blood Gas Modality BIPAP - S/T Blood Gas Notified Time 09/23/2016 4:53:30 AM Blood Gas Notified Whom RTR Blood Gas Pressure Support 10 Blood Gas Respiration Rate 14.0 Blood Gas Specimen Source Blood arterial Blood Gas Temperature 37.0 FiO2 30.0 Oxyhemoglobin Percent 97.1 Total Hemoglobin 12.6 Anion Gap 12 Basophils # 0.1 Basophils % 0.9 Blood Urea Nitrogen 36 H Calcium Level 8.3 L Carbon Dioxide Level 31 Chloride Level 110 Creatinine 1.29 H Eosinophils # 0.3 Eosinophils % 4.4 Glucose Level 173 Hematocrit 34.0 L Hemoglobin 10.9 L Lymphocytes # 1.7 Lymphocytes % 22.1 Mean Corpuscular Hemoglobin 29.2 Mean Corpuscular Hemoglobin Concent 32.1 Mean Corpuscular Volume 91.2 Mean Platelet Volume 12.0 H Monocytes # 0.9 Monocytes % 12.6 H Neutrophils # 4.4 Neutrophils % 59.5 Nucleated Red Blood Cells # 0.0 Nucleated Red Blood Cells % 0.0 Platelet Count 252 Potassium Level 4.3 Red Blood Count 3.73 L Red Cell Distribution Width 16.3 H Sodium Level 149 H White Blood Count 7.5 Test 09/23/16 08:27 09/23/16 12:00 09/23/16 16:15 Bedside Glucose 140 149 85 Medications Medications Current Medications Ondansetron HCl (Zofran Inj) 4 mg Q6H PRN IV NAUSEA AND/OR VOMITING Last administered on 09/10/16 23:03; Admin Dose 4 MG; Start 09/09/16 at 20:00 Nitroglycerin (Nitroglycerin (Sl Tab) 0.4 Mg) 1 tab Q5M PRN SL CHEST PAIN; Start 09/09/16 at 20:00 Acetaminophen (Tylenol Liquid) 650 mg Q6H PRN PO PAIN LEVEL 1-3 OR FEVER Last administered on 09/23/16 03:49; Admin Dose 650 MG; Start 09/09/16 at 20:00 Morphine Sulfate (morphine) 2 mg Q4H PRN IV PAIN LEVEL 7-10 Last administered on 09/22/16 18:21; Admin Dose 2 MG; Start 09/09/16 at 20:00 Lorazepam (Ativan) 1 mg Q2H PRN IV ANXIETY Last administered on 09/22/16 16:46 ; Admin Dose 1 MG; Start 09/09/16 at 20:00 Glucose (Glutose) 15 gm Q15M PRN PO DECREASED GLUCOSE; Start 09/09/16 at 20:30 Glucose (Glutose) 22.5 gm Q15M PRN PO DECREASED GLUCOSE; Start 09/09/16 at 20: 30 Dextrose (D50w Syringe) 25 ml Q15M PRN IV DECREASED GLUCOSE Last administered on 09/20/16 13:44; Admin Dose 25 ML; Start 09/09/16 at 20:30 Dextrose (D50w Syringe) 50 ml Q15M PRN IV DECREASED GLUCOSE; Start 09/09/16 at 20:30 Glucagon (Glucagen) 1 mg Q15M PRN IM DECREASED GLUCOSE; Start 09/09/16 at 20:30 Glucose (Glutose) 15 gm Q15M PRN BUCCAL DECREASED GLUCOSE; Start 09/09/16 at 20 :30 Famotidine (Pepcid Iv) 20 mg DAILY IV Last administered on 09/23/16 09:19; Admin Dose 20 MG; Start 09/10/16 at 09:00 Aspirin 81 mg 81 mg DAILY PO Last administered on 09/23/16 09:19; Admin Dose 81 MG; Start 09/12/16 at 09:00 Ceftriaxone Sodium (Rocephin) 50 ml @ 100 mls/hr Q24H IVPB Last administered on 09/23/16 16:18; Admin Dose 100 MLS/HR; Start 09/12/16 at 16:00; Stop 09/24/16 at 11:30 Insulin Aspart NOVOLOG *MODERATE* ALGORI... Q4 SC Last administered on 12:17; Admin Dose 2 UNIT; Start 09/13/16 at 13:00 Doxycycline Hyclate/Sodium Chloride (Vibramycin/NS) 250 ml @ 250 mls/hr Q12 IVPB Last administered on 09/23/16 09:19; Admin Dose 250 MLS/HR; Start at 15:00; Stop 09/24/16 at 11:30 Hydralazine HCl (Apresoline) 10 mg Q4H PRN IV SBP >160 Last administered on 09/23 18:03; Admin Dose 10 MG; Start 09/17/16 at 07:00 Docusate Sodium (Colace Liquid Cup) 100 mg Q12 PO Last administered on 20:48; Admin Dose 100 MG; Start 09/17/16 at 09:00 Metoprolol Tartrate (Lopressor) 50 mg BID PO Last administered on 09/23/16 20: 48; Admin Dose 50 MG; Start 09/19/16 at 21:00 Haloperidol (Haldol) 2 mg Q4H PRN IM AGITATION Last administered on 09/22/16 05 :17; Admin Dose 2 MG; Start 09/20/16 at 05:30 Insulin Glargine (Lantus) 10 unit QAM SC Last administered on 09/23/16 09:21; Admin Dose 10 UNIT; Start 09/20/16 at 09:00 Furosemide (Lasix) 20 mg DAILY IV Last administered on 09/23/16 13:26; Admin Dose 20 MG; Start 09/23/16 at 13:30 Hydralazine HCl (Apresoline) 50 mg Q8 PO ; Start 09/23/16 at 22:00 QUITA SCHOFIELD MD Sep 23, 2016 20:57
--- NOTE | 2016-09-23 21:18 | CONS ---
Date/Time of Note Date/Time of Note DATE: 09/23/16 TIME: 21:17 Assessment/Plan Assessment/Plan Chief Complaint/Hosp Course Impression and Plan: 1. Severe Iron deficiency anemia: + occult test stool. No signs of GI bleeding presently. S/p EGD with gastritis findings. H/H stable now - monitor CBC daily - if need blood transfusion again, will need EGD sooner 2. Dysphagia: - continue NG feeding 3. s/p Septic shock - 2/2 Ecoli UTI /Bacteremia - improving now, has been off pressors for a few days now. - Continue broad spectrum abx - Continue ICU care for now 4. Acute renal failure r/o CKD- 2/2 to ATN from sepsis - improving now 5. Acute Hypercapnic and Hypoxemic Vent depen Resp failure - s/p self extubation - on BiPAP - Continue Vent mgt per pulm 6. NSTEMI versus elevated trop - CV monitoring. ECHO = EF 45-50 by echo this admit. - Daily aspirin - if need repeat EGD with hemostasis, will need to hold aspirin per cardiology 7. Dr. Pinon to resume care tomorrow. Problems: Consultation Date/Type/Reason Admit Date/Time Sep 09, 2016 at 19:47 Initial Consult Date 09/13/16 Type of Consultation: GI Referring Provider: EMILIANO HENDRICKS 24 HR Interval Summary Free Text/Dictation remains on Bipap Exam/Review of Systems Vital Signs Vitals Vital Signs Date Time Temp Pulse Resp B/P Pulse Ox O2 Delivery O2 Flow Rate FiO2 09/23/16 18:00 78 23 177/67 100 BIPAP 09/23/16 17:13 30 09/23/16 16:00 97.7 09/21/16 14:00 3.0 Intake and Output 09/22/16 09/22/16 09/23/16 15:00 23:00 07:00 Intake Total 190 ml 430 ml 640 ml Output Total 110 ml 1680 ml 605 ml Balance 80 ml -1250 ml 35 ml Exam Constitutional: frail Head: atraumatic, normocephalic Eyes: EOMI, nl conjunctiva, nl lids ENMT: mucosa pink and moist, nl external ears & nose, nl lips & teeth, nl nasal mucosa & septum Neck: non-tender, supple Respiratory: clear to auscultation, normal air movement Cardiovascular: nl pulses, regular rate and rhythm Gastrointestinal: bowel sounds, non-tender, soft Results Result Diagram: 09/23/16 0600 09/23/16 0600 Results 24 hrs Laboratory Tests Test 09/23/16 01:18 09/23/16 05:00 09/23/16 05:43 09/23/16 06:00 Bedside Glucose 142 157 Arterial Blood HCO3 28.1 H Arterial Blood Base Excess 2.8 Arterial Blood Oxygen Saturation 97.9 Jarett Test ACCEPTAB Arterial Blood Gas Puncture Site Left Radial Arterial Blood Carboxyhemoglobin 0.4 Arterial Blood Date Drawn 09/23/2016 4:35:26 AM Arterial Blood Methemoglobin 0.4 Arterial Blood pCO2 (Temp correct) 46.2 H Arterial Blood pH (Temp corrected) 7.402 Arterial Blood pO2 (Temp corrected) 110.2 H Blood Gas A-a O2 Differential 49.4 H Blood Gas Actual Respiration Rate 22 Blood Gas IPAP/EPAP Ratio 15/5 Blood Gas Modality BIPAP - S/T Blood Gas Notified Time 09/23/2016 4:53:30 AM Blood Gas Notified Whom RTR Blood Gas Pressure Support 10 Blood Gas Respiration Rate 14.0 Blood Gas Specimen Source Blood arterial Blood Gas Temperature 37.0 FiO2 30.0 Oxyhemoglobin Percent 97.1 Total Hemoglobin 12.6 Anion Gap 12 Basophils # 0.1 Basophils % 0.9 Blood Urea Nitrogen 36 H Calcium Level 8.3 L Carbon Dioxide Level 31 Chloride Level 110 Creatinine 1.29 H Eosinophils # 0.3 Eosinophils % 4.4 Glucose Level 173 Hematocrit 34.0 L Hemoglobin 10.9 L Lymphocytes # 1.7 Lymphocytes % 22.1 Mean Corpuscular Hemoglobin 29.2 Mean Corpuscular Hemoglobin Concent 32.1 Mean Corpuscular Volume 91.2 Mean Platelet Volume 12.0 H Monocytes # 0.9 Monocytes % 12.6 H Neutrophils # 4.4 Neutrophils % 59.5 Nucleated Red Blood Cells # 0.0 Nucleated Red Blood Cells % 0.0 Platelet Count 252 Potassium Level 4.3 Red Blood Count 3.73 L Red Cell Distribution Width 16.3 H Sodium Level 149 H White Blood Count 7.5 Test 09/23/16 08:27 09/23/16 12:00 09/23/16 16:15 09/23/16 20:41 Bedside Glucose 140 149 85 99 Medications Medications Current Medications Ondansetron HCl (Zofran Inj) 4 mg Q6H PRN IV NAUSEA AND/OR VOMITING Last administered on 09/10/16 23:03; Admin Dose 4 MG; Start 09/09/16 at 20:00 Nitroglycerin (Nitroglycerin (Sl Tab) 0.4 Mg) 1 tab Q5M PRN SL CHEST PAIN; Start 09/09/16 at 20:00 Acetaminophen (Tylenol Liquid) 650 mg Q6H PRN PO PAIN LEVEL 1-3 OR FEVER Last administered on 09/23/16 03:49; Admin Dose 650 MG; Start 09/09/16 at 20:00 Morphine Sulfate (morphine) 2 mg Q4H PRN IV PAIN LEVEL 7-10 Last administered on 09/22/16 18:21; Admin Dose 2 MG; Start 09/09/16 at 20:00 Lorazepam (Ativan) 1 mg Q2H PRN IV ANXIETY Last administered on 09/22/16 16:46 ; Admin Dose 1 MG; Start 09/09/16 at 20:00 Glucose (Glutose) 15 gm Q15M PRN PO DECREASED GLUCOSE; Start 09/09/16 at 20:30 Glucose (Glutose) 22.5 gm Q15M PRN PO DECREASED GLUCOSE; Start 09/09/16 at 20: 30 Dextrose (D50w Syringe) 25 ml Q15M PRN IV DECREASED GLUCOSE Last administered on 09/20/16 13:44; Admin Dose 25 ML; Start 09/09/16 at 20:30 Dextrose (D50w Syringe) 50 ml Q15M PRN IV DECREASED GLUCOSE; Start 09/09/16 at 20:30 Glucagon (Glucagen) 1 mg Q15M PRN IM DECREASED GLUCOSE; Start 09/09/16 at 20:30 Glucose (Glutose) 15 gm Q15M PRN BUCCAL DECREASED GLUCOSE; Start 09/09/16 at 20 :30 Famotidine (Pepcid Iv) 20 mg DAILY IV Last administered on 09/23/16 09:19; Admin Dose 20 MG; Start 09/10/16 at 09:00 Aspirin 81 mg 81 mg DAILY PO Last administered on 09/23/16 09:19; Admin Dose 81 MG; Start 09/12/16 at 09:00 Ceftriaxone Sodium (Rocephin) 50 ml @ 100 mls/hr Q24H IVPB Last administered on 09/23/16 16:18; Admin Dose 100 MLS/HR; Start 09/12/16 at 16:00; Stop 09/24/16 at 11:30 Insulin Aspart NOVOLOG *MODERATE* ALGORI... Q4 SC Last administered on 12:17; Admin Dose 2 UNIT; Start 09/13/16 at 13:00 Doxycycline Hyclate/Sodium Chloride (Vibramycin/NS) 250 ml @ 250 mls/hr Q12 IVPB Last administered on 09/23/16 09:19; Admin Dose 250 MLS/HR; Start at 15:00; Stop 09/24/16 at 11:30 Hydralazine HCl (Apresoline) 10 mg Q4H PRN IV SBP >160 Last administered on 09/23 18:03; Admin Dose 10 MG; Start 09/17/16 at 07:00 Docusate Sodium (Colace Liquid Cup) 100 mg Q12 PO Last administered on 20:48; Admin Dose 100 MG; Start 09/17/16 at 09:00 Metoprolol Tartrate (Lopressor) 50 mg BID PO Last administered on 09/23/16 20: 48; Admin Dose 50 MG; Start 09/19/16 at 21:00 Haloperidol (Haldol) 2 mg Q4H PRN IM AGITATION Last administered on 09/22/16 05 :17; Admin Dose 2 MG; Start 09/20/16 at 05:30 Insulin Glargine (Lantus) 10 unit QAM SC Last administered on 09/23/16 09:21; Admin Dose 10 UNIT; Start 09/20/16 at 09:00 Furosemide (Lasix) 20 mg DAILY IV Last administered on 09/23/16 13:26; Admin Dose 20 MG; Start 09/23/16 at 13:30 Hydralazine HCl (Apresoline) 50 mg Q8 PO ; Start 09/23/16 at 22:00 LAURIE BOBBY MD Sep 23, 2016 21:18
[2016-09-24] VITALS (33 sets, daily range): BP systolic 141–181; BP diastolic 56–117; PULSE 64–103; RESP 15–37
[2016-09-24] MEDS: INSULIN ASPART [NOVOLOG] 3 ML PEN SC SCH ×6 (01:00→21:00)
[2016-09-24 04:53] LABS: ADD SCAN DIFF NO
[2016-09-24] MEDS: hydrALAzine 20 MG INJ IV PRN ×2 (05:03→11:07)
[2016-09-24 05:05] LABS: BASOPHIL # 0.1 10^3/ul (0.0-0.1); EOSINOPHILS # 0.3 10^3/ul (0.0-0.5); EOSINOPHILS % 2.9 % (0.0-7.0); HEMATOCRIT 37.4 % (37.0-47.0); LYMPHOCYTES # 2.1 10^3/ul (0.8-2.9); LYMPHOCYTES % 19.3 % (15.0-51.0); MEAN CORPUSCULAR HEMOGLOBIN 28.8 pg (29.0-33.0); MEAN CORPUSCULAR HGB CONC 32.1 g/dl (32.0-37.0); MEAN CORPUSCULAR VOLUME 89.9 fl (82.0-101.0); MEAN PLATELET VOLUME 12.3 fl (7.4-10.4); MONOCYTE # 1.2 10^3/ul (0.3-0.9); MONOCYTES % 10.8 % (0.0-11.0); NEUTROPHILS % 65.4 % (39.0-77.0); PLATELET COUNT 323 10^3/UL (140-415); RED BLOOD COUNT 4.16 10^6/ul (4.20-5.40); RED CELL DISTRIBUTION WIDTH 16.3 % (11.5-14.5); WHITE BLOOD COUNT 10.8 10^3/ul (4.8-10.8)
[2016-09-24 05:44] LABS: ALBUMIN 2.7 g/dl (3.3-4.9); POTASSIUM 3.9 mmol/L (3.5-5.1)
[2016-09-24 05:46] LABS: CREATININE 1.16 mg/dl (0.44-1.00)
[2016-09-24 05:47] LABS: CALCIUM 8.6 mg/dl (8.4-10.2); PHOSPHORUS 3.4 mg/dl (2.5-4.9)
[2016-09-24 05:48] LABS: MAGNESIUM 1.8 mg/dl (1.7-2.5)
--- NOTE | 2016-09-24 07:56 | RADRPT ---
PROCEDURE: XR Chest 1 View. CLINICAL INDICATION: Shortness of breath TECHNIQUE: AP view of the chest were obtained. COMPARISON: Yesterday FINDINGS: The heart size is within normal limits. Calcified atherosclerosis is noted in the aorta. Nasogastri c tube is stable and appears in grossly appropriate location. Right-sided central line is unchanged . Right lower lobe infiltrates have mildly decreased. Moderate residual combined small pleural eff usion remains. Left lower lobe infiltrates combined small pleural effusion are stable. The osseous structures are unchanged. IMPRESSION: Calcified atherosclerosis in the aorta. Interval decrease in right lower lobe infiltrates. Moderate residual combined small pleural effusio n remains. Stable left lower lobe infiltrates combined with small pleural effusion. RPTAT: AA .Praveen Martell MD, Date Time Electronically viewed and signed by .Praveen Martell MD, on 09/24/2016 07:56 .P/
--- NOTE | 2016-09-24 08:08 | CONS ---
Date/Time of Note Date/Time of Note DATE: 09/24/16 TIME: 08:05 Assessment/Plan Assessment/Plan Additional Assessment/Plan Chest x-ray was reviewed from today which is essentially unremarkable. Assessment recommendations; 1. Patient admitted with severe gram-negative sepsis from UTI with marked interval resolution. 2. Status post extubation however still requiring BiPAP at 30% FiO2. 3. Right upper lobe pneumonia with interval improvement as well 4. Resolution of metabolic acidosis. 5. Stable hypertension. 6. Marked improvement in platelet count. 7. Resolution of renal failure. Continue current treatment. Start the patient on a trial of nasal cannula and wean off BiPAP as tolerated. Consultation Date/Type/Reason Admit Date/Time Sep 09, 2016 at 19:47 Initial Consult Date 09/11/16 Type of Consultation: Pulmonary/critical care Referring Provider: EMILIANO HENDRICKS 24 HR Interval Summary Free Text/Dictation Patient condition is stable. Still requiring BiPAP. Remains awake and alert. Has remained hemodynamically stable. General examination; elderly lady, on BiPAP currently in no distress. Exam/Review of Systems Vital Signs Vitals Vital Signs Date Time Temp Pulse Resp B/P Pulse Ox O2 Delivery O2 Flow Rate FiO2 09/24/16 06:00 92 15 162/80 100 BIPAP 09/24/16 05:10 30 09/24/16 04:00 98.0 09/21/16 14:00 3.0 Intake and Output 09/23/16 09/23/16 09/24/16 14:59 22:59 06:59 Intake Total 600 ml 260 ml 650 ml Output Total 1100 ml 1705 ml 1500 ml Balance -500 ml -1445 ml -850 ml Exam HEENT examination; supple neck, no JVD. No lymphadenopathy. Midline trachea. No thyromegaly. It was a small bilaterally. Pharynx was not examined as the patient is on BiPAP. Chest examination; clear to auscultation bilaterally. No added sounds. S1-S2 audible, no murmurs. Regular rhythm. Abdomen examination; soft, nontender, no organomegaly. Bowel sounds audible. Extremity examination; no peripheral edema. [employer]IST examination; patient is awake follows simple command moves all 4 extremities. Results Result Diagram: 09/24/16 0430 09/24/16 0430 Results 24 hrs Laboratory Tests Test 09/23/16 08:27 09/23/16 12:00 09/23/16 16:15 09/23/16 20:41 Bedside Glucose 140 149 85 99 Test 09/24/16 04:30 Albumin 2.7 L Anion Gap 15 Basophils # 0.1 Basophils % 1.0 Blood Urea Nitrogen 33 H Calcium Level 8.6 Carbon Dioxide Level 30 Chloride Level 107 Creatinine 1.16 H Eosinophils # 0.3 Eosinophils % 2.9 Glucose Level 180 Hematocrit 37.4 Hemoglobin 12.0 Lymphocytes # 2.1 Lymphocytes % 19.3 Magnesium Level 1.8 Mean Corpuscular Hemoglobin 28.8 L Mean Corpuscular Hemoglobin Concent 32.1 Mean Corpuscular Volume 89.9 Mean Platelet Volume 12.3 H Monocytes # 1.2 H Monocytes % 10.8 Neutrophils # 7.0 Neutrophils % 65.4 Nucleated Red Blood Cells # 0.0 Nucleated Red Blood Cells % 0.0 Phosphorus Level 3.4 Platelet Count 323 # Potassium Level 3.9 Red Blood Count 4.16 L Red Cell Distribution Width 16.3 H Sodium Level 148 H White Blood Count 10.8 # Medications Medications Current Medications Ondansetron HCl (Zofran Inj) 4 mg Q6H PRN IV NAUSEA AND/OR VOMITING Last administered on 09/10/16 23:03; Admin Dose 4 MG; Start 09/09/16 at 20:00 Nitroglycerin (Nitroglycerin (Sl Tab) 0.4 Mg) 1 tab Q5M PRN SL CHEST PAIN; Start 09/09/16 at 20:00 Acetaminophen (Tylenol Liquid) 650 mg Q6H PRN PO PAIN LEVEL 1-3 OR FEVER Last administered on 09/23/16 03:49; Admin Dose 650 MG; Start 09/09/16 at 20:00 Morphine Sulfate (morphine) 2 mg Q4H PRN IV PAIN LEVEL 7-10 Last administered on 09/22/16 18:21; Admin Dose 2 MG; Start 09/09/16 at 20:00 Lorazepam (Ativan) 1 mg Q2H PRN IV ANXIETY Last administered on 09/22/16 16:46 ; Admin Dose 1 MG; Start 09/09/16 at 20:00 Glucose (Glutose) 15 gm Q15M PRN PO DECREASED GLUCOSE; Start 09/09/16 at 20:30 Glucose (Glutose) 22.5 gm Q15M PRN PO DECREASED GLUCOSE; Start 09/09/16 at 20: 30 Dextrose (D50w Syringe) 25 ml Q15M PRN IV DECREASED GLUCOSE Last administered on 09/20/16 13:44; Admin Dose 25 ML; Start 09/09/16 at 20:30 Dextrose (D50w Syringe) 50 ml Q15M PRN IV DECREASED GLUCOSE; Start 09/09/16 at 20:30 Glucagon (Glucagen) 1 mg Q15M PRN IM DECREASED GLUCOSE; Start 09/09/16 at 20:30 Glucose (Glutose) 15 gm Q15M PRN BUCCAL DECREASED GLUCOSE; Start 09/09/16 at 20 :30 Famotidine (Pepcid Iv) 20 mg DAILY IV Last administered on 09/23/16 09:19; Admin Dose 20 MG; Start 09/10/16 at 09:00 Aspirin 81 mg 81 mg DAILY PO Last administered on 09/23/16 09:19; Admin Dose 81 MG; Start 09/12/16 at 09:00 Ceftriaxone Sodium (Rocephin) 50 ml @ 100 mls/hr Q24H IVPB Last administered on 09/23/16 16:18; Admin Dose 100 MLS/HR; Start 09/12/16 at 16:00; Stop 09/24/16 at 11:30 Insulin Aspart NOVOLOG *MODERATE* ALGORI... Q4 SC Last administered on 12:17; Admin Dose 2 UNIT; Start 09/13/16 at 13:00 Doxycycline Hyclate/Sodium Chloride (Vibramycin/NS) 250 ml @ 250 mls/hr Q12 IVPB Last administered on 09/23/16 21:55; Admin Dose 250 MLS/HR; Start at 15:00; Stop 09/24/16 at 11:30 Hydralazine HCl (Apresoline) 10 mg Q4H PRN IV SBP >160 Last administered on 09/24 05:03; Admin Dose 10 MG; Start 09/17/16 at 07:00 Docusate Sodium (Colace Liquid Cup) 100 mg Q12 PO Last administered on 20:48; Admin Dose 100 MG; Start 09/17/16 at 09:00 Metoprolol Tartrate (Lopressor) 50 mg BID PO Last administered on 09/23/16 20: 48; Admin Dose 50 MG; Start 09/19/16 at 21:00 Haloperidol (Haldol) 2 mg Q4H PRN IM AGITATION Last administered on 09/22/16 05 :17; Admin Dose 2 MG; Start 09/20/16 at 05:30 Insulin Glargine (Lantus) 10 unit QAM SC Last administered on 09/23/16 09:21; Admin Dose 10 UNIT; Start 09/20/16 at 09:00 Furosemide (Lasix) 20 mg DAILY IV Last administered on 09/23/16 13:26; Admin Dose 20 MG; Start 09/23/16 at 13:30 Hydralazine HCl (Apresoline) 50 mg Q8 PO Last administered on 09/24/16 05:06; Admin Dose 50 MG; Start 09/23/16 at 22:00 DEANNA MONSALVE Sep 24, 2016 08:08
[2016-09-24] MEDS: DOXYCYCLINE 100 MG in SOD CHLORIDE 0.9% 250 ML IVPB SCH (08:54)
[2016-09-24] MEDS: METOPROLOL 50 MG TAB PO SCH ×2 (08:54→20:07)
[2016-09-24] MEDS: ASPIRIN 81 MG TAB PO SCH (08:54)
[2016-09-24] MEDS: FAMOTIDINE 20 MG INJ IV SCH (08:54)
[2016-09-24] MEDS: FUROSEMIDE 20 MG INJ IV SCH (08:54)
[2016-09-24] MEDS: INSULIN GLARGINE [LANtus] 3 ML PEN SC SCH (08:56)
[2016-09-24] MEDS: DOCUSATE SODIUM 10 MG/ML (10ML CUP) PO SCH ×2 (08:59→19:51)
--- NOTE | 2016-09-24 10:36 | PN ---
Date/Time of Note Date/Time of Note DATE: 09/24/16 TIME: 10:32 Assessment/Plan VTE Prophylaxis VTE Prophylaxis Intervention: SCD's Lines/Catheters IV Catheter Type (from Nrsg): Central Line Central line still needed: Yes Urinary Cath still in place: Yes Reason Cath still needed: other (indicate) Assessment/Plan Assessment/Plan 1. s/p Septic shock - 2/2 Ecoli UTI /Bacteremia - much improved 2. Acute renal failure r/o CKD- 2/2 to ATN from sepsis - improved 3. Type II DM - controlled on SSI 4. Metabolic / Lactic acidosis 2/2 #1: resolved 5. Acute Hypercapnic and Hypoxemic Resp failure - s/p self extubation - on BiPAP 6. NSTEMI versus elevated trop - CV monitoring. ECHO = EF 45-50 by echo this admit. 7. Thrombocytopenia likely associated with sepsis vs meds vs mild DIC: HIT antibody negative/ s/p FFP and platelet transfusion - resolved 8. Severe Iron deficiency: + occult test stool. No signs of GI bleeding presently. S/p EGD with gastritis findings only. s/p pRBC transfusion/ and IV iron infusion PLAN: - Try to wean bipap - Continue broad spectrum abx / Appreciate ID consult, f/u rec's - Continue ICU care for now - Continue serial labs and monitoring - Will need prompt outpt mgt of her hernia once stable - Consider restarting heparin if ok with heme onc PROPHYLAXIS: Pepcid / SCDS CRITICAL CARE TIME: >35 mins Subjective 24 Hr Interval Summary Free Text/Dictation Patient seen and examined. doing better, more communicative Exam/Review of Systems Vital Signs Vitals Vital Signs Date Time Temp Pulse Resp B/P Pulse Ox O2 Delivery O2 Flow Rate FiO2 09/24/16 09:00 90 29 173/83 100 BIPAP 09/24/16 08:00 97.8 09/24/16 05:10 30 09/21/16 14:00 3.0 Intake and Output 09/23/16 09/23/16 09/24/16 15:00 23:00 07:00 Intake Total 600 ml 220 ml 650 ml Output Total 1425 ml 1295 ml 1460 ml Balance -825 ml -1075 ml -810 ml Exam Constitutional: alert, distress, other (bipap) Head: normocephalic Eyes: PERRL Respiratory: diminished breath sounds, No wheezing Cardiovascular: nl pulses, regular rate and rhythm Gastrointestinal: bowel sounds, non-tender, soft Extremities: edema Neurological: lethargic Results Result Diagram: 09/24/16 0430 09/24/16 0430 Results 24 hrs Laboratory Tests Test 09/23/16 12:00 09/23/16 16:15 09/23/16 20:41 09/24/16 04:30 Bedside Glucose 149 85 99 Albumin 2.7 L Anion Gap 15 Basophils # 0.1 Basophils % 1.0 Blood Urea Nitrogen 33 H Calcium Level 8.6 Carbon Dioxide Level 30 Chloride Level 107 Creatinine 1.16 H Eosinophils # 0.3 Eosinophils % 2.9 Glucose Level 180 Hematocrit 37.4 Hemoglobin 12.0 Lymphocytes # 2.1 Lymphocytes % 19.3 Magnesium Level 1.8 Mean Corpuscular Hemoglobin 28.8 L Mean Corpuscular Hemoglobin Concent 32.1 Mean Corpuscular Volume 89.9 Mean Platelet Volume 12.3 H Monocytes # 1.2 H Monocytes % 10.8 Neutrophils # 7.0 Neutrophils % 65.4 Nucleated Red Blood Cells # 0.0 Nucleated Red Blood Cells % 0.0 Phosphorus Level 3.4 Platelet Count 323 # Potassium Level 3.9 Red Blood Count 4.16 L Red Cell Distribution Width 16.3 H Sodium Level 148 H White Blood Count 10.8 # Test 09/24/16 08:15 Bedside Glucose 204 Medications Medications Current Medications Ondansetron HCl (Zofran Inj) 4 mg Q6H PRN IV NAUSEA AND/OR VOMITING Last administered on 09/10/16 23:03; Admin Dose 4 MG; Start 09/09/16 at 20:00 Nitroglycerin (Nitroglycerin (Sl Tab) 0.4 Mg) 1 tab Q5M PRN SL CHEST PAIN; Start 09/09/16 at 20:00 Acetaminophen (Tylenol Liquid) 650 mg Q6H PRN PO PAIN LEVEL 1-3 OR FEVER Last administered on 09/23/16 03:49; Admin Dose 650 MG; Start 09/09/16 at 20:00 Morphine Sulfate (morphine) 2 mg Q4H PRN IV PAIN LEVEL 7-10 Last administered on 09/22/16 18:21; Admin Dose 2 MG; Start 09/09/16 at 20:00 Lorazepam (Ativan) 1 mg Q2H PRN IV ANXIETY Last administered on 09/22/16 16:46 ; Admin Dose 1 MG; Start 09/09/16 at 20:00 Glucose (Glutose) 15 gm Q15M PRN PO DECREASED GLUCOSE; Start 09/09/16 at 20:30 Glucose (Glutose) 22.5 gm Q15M PRN PO DECREASED GLUCOSE; Start 09/09/16 at 20: 30 Dextrose (D50w Syringe) 25 ml Q15M PRN IV DECREASED GLUCOSE Last administered on 09/20/16 13:44; Admin Dose 25 ML; Start 09/09/16 at 20:30 Dextrose (D50w Syringe) 50 ml Q15M PRN IV DECREASED GLUCOSE; Start 09/09/16 at 20:30 Glucagon (Glucagen) 1 mg Q15M PRN IM DECREASED GLUCOSE; Start 09/09/16 at 20:30 Glucose (Glutose) 15 gm Q15M PRN BUCCAL DECREASED GLUCOSE; Start 09/09/16 at 20 :30 Famotidine (Pepcid Iv) 20 mg DAILY IV Last administered on 09/24/16 08:54; Admin Dose 20 MG; Start 09/10/16 at 09:00 Aspirin 81 mg 81 mg DAILY PO Last administered on 09/24/16 08:54; Admin Dose 81 MG; Start 09/12/16 at 09:00 Ceftriaxone Sodium (Rocephin) 50 ml @ 100 mls/hr Q24H IVPB Last administered on 09/23/16 16:18; Admin Dose 100 MLS/HR; Start 09/12/16 at 16:00; Stop 09/24/16 at 11:30 Insulin Aspart NOVOLOG *MODERATE* ALGORI... Q4 SC Last administered on 08:56; Admin Dose 4 UNIT; Start 09/13/16 at 13:00 Doxycycline Hyclate/Sodium Chloride (Vibramycin/NS) 250 ml @ 250 mls/hr Q12 IVPB Last administered on 09/24/16 08:54; Admin Dose 250 MLS/HR; Start at 15:00; Stop 09/24/16 at 11:30 Hydralazine HCl (Apresoline) 10 mg Q4H PRN IV SBP >160 Last administered on 09/24 05:03; Admin Dose 10 MG; Start 09/17/16 at 07:00 Docusate Sodium (Colace Liquid Cup) 100 mg Q12 PO Last administered on 20:48; Admin Dose 100 MG; Start 09/17/16 at 09:00 Metoprolol Tartrate (Lopressor) 50 mg BID PO Last administered on 09/24/16 08: 54; Admin Dose 50 MG; Start 09/19/16 at 21:00 Haloperidol (Haldol) 2 mg Q4H PRN IM AGITATION Last administered on 09/22/16 05 :17; Admin Dose 2 MG; Start 09/20/16 at 05:30 Insulin Glargine (Lantus) 10 unit QAM SC Last administered on 09/24/16 08:56; Admin Dose 10 UNIT; Start 09/20/16 at 09:00 Furosemide (Lasix) 20 mg DAILY IV Last administered on 09/24/16 08:54; Admin Dose 20 MG; Start 09/23/16 at 13:30 Hydralazine HCl (Apresoline) 50 mg Q8 PO Last administered on 09/24/16 05:06; Admin Dose 50 MG; Start 09/23/16 at 22:00 EMILIANO HENDRICKS Sep 24, 2016 10:36
--- NOTE | 2016-09-24 11:30 | CONS ---
Date/Time of Note Date/Time of Note DATE: 09/24/16 TIME: 11:29 Assessment/Plan Assessment/Plan Chief Complaint/Hosp Course SUBJECTIVE: No events overnight. No fevers. On BiPAP, awake, looks comfortable. ANTIMICROBIALS: 1. Doxycycline 2. Rocephin. INDWELLINGS: The patient has NG tube, Alaniz catheter, right IJ TLC. PHYSICAL EXAMINATION: GENERAL: Fragile, elderly woman who is lethargic, comfortable on BiPAP. HEENT: Head atraumatic, normocephalic. Sclerae anicteric. Buccal mucosa dry. NECK: Supple, trachea midline. CHEST: Rise symmetrical. Breath sounds diminished to bases. HEART: S1, S2. ABDOMEN: Soft, bowel tones present. EXTREMITIES: Without cyanosis. ASSESSMENT: 1. Resolving sepsis status post shock. 2. Status post Escherichia coli urinary tract infection with bacteremia. 3. Acute respiratory failure, status post extubated, now on BiPAP. 4. Acute renal failure. 5. Anemia. 6. Encephalopathy. PLAN: The patient remains stable on Bipap, no fevers, will dc antibiotics and observe. Continue management as per primary team and consultants. DW family DW staff Problems: Consultation Date/Type/Reason Admit Date/Time Sep 09, 2016 at 19:47 Initial Consult Date 09/13/16 Type of Consultation: ID Referring Provider: EMILIANO HENDRICKS Exam/Review of Systems Vital Signs Vitals Vital Signs Date Time Temp Pulse Resp B/P Pulse Ox O2 Delivery O2 Flow Rate FiO2 09/24/16 11:00 100 4.0 09/24/16 09:00 90 29 173/83 BIPAP 09/24/16 08:00 97.8 09/24/16 05:10 30 Intake and Output 09/23/16 09/23/16 09/24/16 14:59 22:59 06:59 Intake Total 600 ml 260 ml 650 ml Output Total 1100 ml 1705 ml 1500 ml Balance -500 ml -1445 ml -850 ml Results Result Diagram: 09/24/16 0430 09/24/16 0430 Results 24 hrs Laboratory Tests Test 09/23/16 12:00 09/23/16 16:15 09/23/16 20:41 09/24/16 04:30 Bedside Glucose 149 85 99 Albumin 2.7 L Anion Gap 15 Basophils # 0.1 Basophils % 1.0 Blood Urea Nitrogen 33 H Calcium Level 8.6 Carbon Dioxide Level 30 Chloride Level 107 Creatinine 1.16 H Eosinophils # 0.3 Eosinophils % 2.9 Glucose Level 180 Hematocrit 37.4 Hemoglobin 12.0 Lymphocytes # 2.1 Lymphocytes % 19.3 Magnesium Level 1.8 Mean Corpuscular Hemoglobin 28.8 L Mean Corpuscular Hemoglobin Concent 32.1 Mean Corpuscular Volume 89.9 Mean Platelet Volume 12.3 H Monocytes # 1.2 H Monocytes % 10.8 Neutrophils # 7.0 Neutrophils % 65.4 Nucleated Red Blood Cells # 0.0 Nucleated Red Blood Cells % 0.0 Phosphorus Level 3.4 Platelet Count 323 # Potassium Level 3.9 Red Blood Count 4.16 L Red Cell Distribution Width 16.3 H Sodium Level 148 H White Blood Count 10.8 # Test 09/24/16 08:15 09/24/16 11:00 Bedside Glucose 204 Lab Scanned Report BLOOD TRANSFUSION Medications Medications Current Medications Ondansetron HCl (Zofran Inj) 4 mg Q6H PRN IV NAUSEA AND/OR VOMITING Last administered on 09/10/16 23:03; Admin Dose 4 MG; Start 09/09/16 at 20:00 Nitroglycerin (Nitroglycerin (Sl Tab) 0.4 Mg) 1 tab Q5M PRN SL CHEST PAIN; Start 09/09/16 at 20:00 Acetaminophen (Tylenol Liquid) 650 mg Q6H PRN PO PAIN LEVEL 1-3 OR FEVER Last administered on 09/23/16 03:49; Admin Dose 650 MG; Start 09/09/16 at 20:00 Morphine Sulfate (morphine) 2 mg Q4H PRN IV PAIN LEVEL 7-10 Last administered on 09/22/16 18:21; Admin Dose 2 MG; Start 09/09/16 at 20:00 Lorazepam (Ativan) 1 mg Q2H PRN IV ANXIETY Last administered on 09/22/16 16:46 ; Admin Dose 1 MG; Start 09/09/16 at 20:00 Glucose (Glutose) 15 gm Q15M PRN PO DECREASED GLUCOSE; Start 09/09/16 at 20:30 Glucose (Glutose) 22.5 gm Q15M PRN PO DECREASED GLUCOSE; Start 09/09/16 at 20: 30 Dextrose (D50w Syringe) 25 ml Q15M PRN IV DECREASED GLUCOSE Last administered on 09/20/16 13:44; Admin Dose 25 ML; Start 09/09/16 at 20:30 Dextrose (D50w Syringe) 50 ml Q15M PRN IV DECREASED GLUCOSE; Start 09/09/16 at 20:30 Glucagon (Glucagen) 1 mg Q15M PRN IM DECREASED GLUCOSE; Start 09/09/16 at 20:30 Glucose (Glutose) 15 gm Q15M PRN BUCCAL DECREASED GLUCOSE; Start 09/09/16 at 20 :30 Famotidine (Pepcid Iv) 20 mg DAILY IV Last administered on 09/24/16 08:54; Admin Dose 20 MG; Start 09/10/16 at 09:00 Aspirin 81 mg 81 mg DAILY PO Last administered on 09/24/16 08:54; Admin Dose 81 MG; Start 09/12/16 at 09:00 Ceftriaxone Sodium (Rocephin) 50 ml @ 100 mls/hr Q24H IVPB Last administered on 09/23/16 16:18; Admin Dose 100 MLS/HR; Start 09/12/16 at 16:00; Stop 09/24/16 at 11:30 Insulin Aspart NOVOLOG *MODERATE* ALGORI... Q4 SC Last administered on 08:56; Admin Dose 4 UNIT; Start 09/13/16 at 13:00 Doxycycline Hyclate/Sodium Chloride (Vibramycin/NS) 250 ml @ 250 mls/hr Q12 IVPB Last administered on 09/24/16 08:54; Admin Dose 250 MLS/HR; Start at 15:00; Stop 09/24/16 at 11:30 Hydralazine HCl (Apresoline) 10 mg Q4H PRN IV SBP >160 Last administered on 09/24 11:07; Admin Dose 10 MG; Start 09/17/16 at 07:00 Docusate Sodium (Colace Liquid Cup) 100 mg Q12 PO Last administered on 20:48; Admin Dose 100 MG; Start 09/17/16 at 09:00 Metoprolol Tartrate (Lopressor) 50 mg BID PO Last administered on 09/24/16 08: 54; Admin Dose 50 MG; Start 09/19/16 at 21:00 Haloperidol (Haldol) 2 mg Q4H PRN IM AGITATION Last administered on 09/22/16 05 :17; Admin Dose 2 MG; Start 09/20/16 at 05:30 Insulin Glargine (Lantus) 10 unit QAM SC Last administered on 09/24/16 08:56; Admin Dose 10 UNIT; Start 09/20/16 at 09:00 Furosemide (Lasix) 20 mg DAILY IV Last administered on 09/24/16 08:54; Admin Dose 20 MG; Start 09/23/16 at 13:30; Stop 09/26/16 at 13:29 Hydralazine HCl (Apresoline) 50 mg Q8 PO Last administered on 09/24/16 05:06; Admin Dose 50 MG; Start 09/23/16 at 22:00 CHLOE MONROY NP Sep 24, 2016 11:30
--- NOTE | 2016-09-24 15:08 | CONS ---
Date/Time of Note Date/Time of Note DATE: 09/24/16 TIME: 15:05 Assessment/Plan Assessment/Plan Chief Complaint/Hosp Course IMPRESSION: 1. Positive troponin, assess significance, assess for true acute coronary syndrome.-now downtrending in setting ongoing renal failure 2. Hypotension, shock state. Rule out cardiac etiology-EF 45-50 by echo this admit-improved off of pressors 3. Abnormal electrocardiogram, assess for acute coronary syndrome. 4. Respiratory failure s/p extubation on BIPAP 5. Leukocytosis. 6. Anemia. 7. Thrombocytopenia-improved 8. Renal failure-ongoing/stable to slightly improved 9. Bacteremia with gram negative rods. 10.CHF-systolic and diastolic acute EF 45-50 by echo this admit REcc: -Tele -continue abx's and f/u ca data -Continue asa -Continue BB and increase hydralazine to improve BP control -Follow volume status closely on gentle lasix diuresis which I will slightly increase -Continue BIPAP resp support Problems: Consultation Date/Type/Reason Admit Date/Time Sep 09, 2016 at 19:47 Initial Consult Date 09/11/16 Type of Consultation: Cardiology Reason for Consultation positive troponin Referring Provider: EMILIANO HENDRICKS Exam/Review of Systems Vital Signs Vitals Vital Signs Date Time Temp Pulse Resp B/P Pulse Ox O2 Delivery O2 Flow Rate FiO2 09/24/16 15:00 69 17 100 09/24/16 14:00 161/68 BIPAP 09/24/16 12:00 97.0 09/24/16 11:00 4.0 09/24/16 10:10 30 Intake and Output 09/23/16 09/23/16 09/24/16 15:00 23:00 07:00 Intake Total 600 ml 220 ml 650 ml Output Total 1425 ml 1295 ml 1460 ml Balance -825 ml -1075 ml -810 ml Exam Review of Systems: CONSTITUTIONAL: No fevers, chills. PULMONARY: BIpap in place CARDIOVASCULAR: No chest pain/palpitations GASTROINTESTINAL: No nausea/vomiting. GENITOURINARY: No hematuria/dysuria. MUSCULOSKELETAL: No myagias/arthalgias. PSYCHIATRIC: The patient denies depression. NEUROLOGIC: No weakness Constitutional: alert, oriented Psych: no complaints Head: normocephalic ENMT: mucosa pink and moist Neck: jvd (9 cm water), supple Respiratory: other (upper airway rhoncherous sounds) Cardiovascular: regular rate and rhythm Gastrointestinal: non-tender, soft Musculoskeletal: muscle tone (normal) Extremities: edema (none) Neurological: other (No focal deficits) Results Result Diagram: 09/24/16 0430 09/24/16 0430 Results 24 hrs Laboratory Tests Test 09/23/16 16:15 09/23/16 20:41 09/24/16 04:30 09/24/16 08:15 Bedside Glucose 85 99 204 Albumin 2.7 L Anion Gap 15 Basophils # 0.1 Basophils % 1.0 Blood Urea Nitrogen 33 H Calcium Level 8.6 Carbon Dioxide Level 30 Chloride Level 107 Creatinine 1.16 H Eosinophils # 0.3 Eosinophils % 2.9 Glucose Level 180 Hematocrit 37.4 Hemoglobin 12.0 Lymphocytes # 2.1 Lymphocytes % 19.3 Magnesium Level 1.8 Mean Corpuscular Hemoglobin 28.8 L Mean Corpuscular Hemoglobin Concent 32.1 Mean Corpuscular Volume 89.9 Mean Platelet Volume 12.3 H Monocytes # 1.2 H Monocytes % 10.8 Neutrophils # 7.0 Neutrophils % 65.4 Nucleated Red Blood Cells # 0.0 Nucleated Red Blood Cells % 0.0 Phosphorus Level 3.4 Platelet Count 323 # Potassium Level 3.9 Red Blood Count 4.16 L Red Cell Distribution Width 16.3 H Sodium Level 148 H White Blood Count 10.8 # Test 09/24/16 11:00 09/24/16 12:05 Lab Scanned Report BLOOD TRANSFUSION Bedside Glucose 125 Medications Medications Current Medications Ondansetron HCl (Zofran Inj) 4 mg Q6H PRN IV NAUSEA AND/OR VOMITING Last administered on 09/10/16 23:03; Admin Dose 4 MG; Start 09/09/16 at 20:00 Nitroglycerin (Nitroglycerin (Sl Tab) 0.4 Mg) 1 tab Q5M PRN SL CHEST PAIN; Start 09/09/16 at 20:00 Acetaminophen (Tylenol Liquid) 650 mg Q6H PRN PO PAIN LEVEL 1-3 OR FEVER Last administered on 09/23/16 03:49; Admin Dose 650 MG; Start 09/09/16 at 20:00 Morphine Sulfate (morphine) 2 mg Q4H PRN IV PAIN LEVEL 7-10 Last administered on 09/22/16 18:21; Admin Dose 2 MG; Start 09/09/16 at 20:00 Lorazepam (Ativan) 1 mg Q2H PRN IV ANXIETY Last administered on 09/22/16 16:46 ; Admin Dose 1 MG; Start 09/09/16 at 20:00 Glucose (Glutose) 15 gm Q15M PRN PO DECREASED GLUCOSE; Start 09/09/16 at 20:30 Glucose (Glutose) 22.5 gm Q15M PRN PO DECREASED GLUCOSE; Start 09/09/16 at 20: 30 Dextrose (D50w Syringe) 25 ml Q15M PRN IV DECREASED GLUCOSE Last administered on 09/20/16 13:44; Admin Dose 25 ML; Start 09/09/16 at 20:30 Dextrose (D50w Syringe) 50 ml Q15M PRN IV DECREASED GLUCOSE; Start 09/09/16 at 20:30 Glucagon (Glucagen) 1 mg Q15M PRN IM DECREASED GLUCOSE; Start 09/09/16 at 20:30 Glucose (Glutose) 15 gm Q15M PRN BUCCAL DECREASED GLUCOSE; Start 09/09/16 at 20 :30 Famotidine (Pepcid Iv) 20 mg DAILY IV Last administered on 09/24/16 08:54; Admin Dose 20 MG; Start 09/10/16 at 09:00 Aspirin (Aspirin) 81 mg DAILY PO Last administered on 09/24/16 08:54; Admin Dose 81 MG; Start 09/12/16 at 09:00 Insulin Aspart (Novolog Insulin Pen) NOVOLOG *MODERATE* ALGORI... Q4 SC Last administered on 09/24/16 08:56; Admin Dose 4 UNIT; Start 09/13/16 at 13:00 Hydralazine HCl (Apresoline) 10 mg Q4H PRN IV SBP >160 Last administered on 09/24 11:07; Admin Dose 10 MG; Start 09/17/16 at 07:00 Docusate Sodium (Colace Liquid Cup) 100 mg Q12 PO Last administered on 20:48; Admin Dose 100 MG; Start 09/17/16 at 09:00 Metoprolol Tartrate (Lopressor) 50 mg BID PO Last administered on 09/24/16 08: 54; Admin Dose 50 MG; Start 09/19/16 at 21:00 Haloperidol (Haldol) 2 mg Q4H PRN IM AGITATION Last administered on 09/22/16 05 :17; Admin Dose 2 MG; Start 09/20/16 at 05:30 Insulin Glargine (Lantus) 10 unit QAM SC Last administered on 09/24/16 08:56; Admin Dose 10 UNIT; Start 09/20/16 at 09:00 Furosemide (Lasix) 20 mg DAILY IV Last administered on 09/24/16 08:54; Admin Dose 20 MG; Start 09/23/16 at 13:30; Stop 09/26/16 at 13:29 Hydralazine HCl (Apresoline) 50 mg Q8 PO Last administered on 09/24/16 05:06; Admin Dose 50 MG; Start 09/23/16 at 22:00 ALLISON CONTRERAS Sep 24, 2016 15:08
--- NOTE | 2016-09-24 16:28 | CONS ---
DATE OF ADMISSION: 09/09/2016 DATE OF CONSULTATION: 09/24/2016 HISTORY OF PRESENT ILLNESS: All the information is taken from the patient's medical records. The sudhir mackey is currently on CPAP in the intensive care unit. She has had a long, extensive hospital cou rse, and has been in the intensive care unit for a prolonged period of time. Essentially, she is a 75-year-old female who 07/22/2016 was admitted to [facility] on 09/09/2016, histor y of increasing shortness of breath associated with nausea, vomiting, and generalized malaise. She has a co-morbid history of type 2 diabetes, chronic pain syndrome, and generally was deteriorating p rior to this hospitalization. Since she has been here, she has developed increasing respiratory symp toms and required intubation for severe sepsis and was transferred to the intensive care unit, and h as had aggressive care since that period of time. Unfortunately, she still required BiPAP. Overall concern is the patient is a FULL CODE, and chances of a full recovery are less and less the longer she has continued to require this level of care. Once again, patient is a FULL CODE. She is non-En glish speaking, and I have taken all of the information from patient's medical records. MEDICATIONS: Please refer to reconciliation sheet. ALLERGIES: NO KNOWN DRUG ALLERGIES. PAST MEDICAL HISTORY: More extensive detailed information can be obtained from the initial history and physical done by Dr. Cesar Nj. MAJOR MEDICAL PROBLEMS: Once again, as per history of present illness. SOCIAL HISTORY: Unknown. FAMILY HISTORY: Unknown. REVIEW OF SYSTEMS: Cannot be obtained. PHYSICAL EXAMINATION: GENERAL: Shows a frail-appearing, elderly female. VITAL SIGNS: Blood pressure 159/82, pulse 90 and regular, respirations of 27, 97% saturation on BiP AP 4 liters. HEENT: She is otherwise normocephalic and atraumatic. Anicteric, acyanotic. CHEST: Distant breath sounds throughout both lung modi. She has no rales or rhonchi, and not whe ezing. COR: S1, S2. Rapid rate on examination. ABDOMEN: Grossly benign. NEUROLOGIC: She follows simple commands. Moves all 4 extremities without difficulty. She tracks m e. Cannot do an adequate neurological examination secondary to BiPAP mask and patient being in resp iratory distress. LABORATORY TESTS: Today, white blood cell count of 10.8, hemoglobin of 12.0, hematocrit of 37.4, MC V of 89.9, platelet count 323,000. Chemistry: Serum sodium 148, potassium 3.9, chloride 107, bicar bonate 30, BUN of 33, creatinine 1.16, blood sugar 180. ASSESSMENT AND PLAN: I will ask case management to schedule a meeting with family members soon, at least to address her code status. If she does not continue to significantly improve, will address h er ongoing level of care first with Dr. Sybil Land and then with family members. Dictated By: SUKHWINDER JONAS MD LP/NTS Conf#: [id number] DID#: [id number]
--- NOTE | 2016-09-24 20:30 | CONS ---
Date/Time of Note Date/Time of Note DATE: 09/24/16 TIME: 20:29 Assessment/Plan Assessment/Plan Chief Complaint/Hosp Course IMPRESSION: 1. Patient has SHALOM BETTER 2. S/P ATN 3. S/P vdrf NOW ON BIPAP 4.. The patient has Escherichia coli bacteremia, E. coli urinary tract infection. 5 hypernatremia better 6 pleural effusion on lasix PLAN CK BMP lasix Problems: Consultation Date/Type/Reason Admit Date/Time Sep 09, 2016 at 19:47 Initial Consult Date 09/11/16 Type of Consultation: renal Referring Provider: EMILIANO HENDRICKS 24 HR Interval Summary Constitutional: other (on bipap) Exam/Review of Systems Vital Signs Vitals Vital Signs Date Time Temp Pulse Resp B/P Pulse Ox O2 Delivery O2 Flow Rate FiO2 09/24/16 18:00 69 15 144/56 100 BIPAP 09/24/16 17:23 30 09/24/16 16:00 97.6 09/24/16 11:00 4.0 Intake and Output 09/23/16 09/23/16 09/24/16 15:00 23:00 07:00 Intake Total 600 ml 220 ml 650 ml Output Total 1425 ml 1295 ml 1460 ml Balance -825 ml -1075 ml -810 ml Exam Respiratory: diminished breath sounds Cardiovascular: regular rate and rhythm Gastrointestinal: bowel sounds (+), soft Extremities: No edema Results Result Diagram: 09/24/16 0430 09/24/16 0430 Results 24 hrs Laboratory Tests Test 09/23/16 20:41 09/24/16 04:30 09/24/16 08:15 09/24/16 11:00 Bedside Glucose 99 204 Albumin 2.7 L Anion Gap 15 Basophils # 0.1 Basophils % 1.0 Blood Urea Nitrogen 33 H Calcium Level 8.6 Carbon Dioxide Level 30 Chloride Level 107 Creatinine 1.16 H Eosinophils # 0.3 Eosinophils % 2.9 Glucose Level 180 Hematocrit 37.4 Hemoglobin 12.0 Lymphocytes # 2.1 Lymphocytes % 19.3 Magnesium Level 1.8 Mean Corpuscular Hemoglobin 28.8 L Mean Corpuscular Hemoglobin Concent 32.1 Mean Corpuscular Volume 89.9 Mean Platelet Volume 12.3 H Monocytes # 1.2 H Monocytes % 10.8 Neutrophils # 7.0 Neutrophils % 65.4 Nucleated Red Blood Cells # 0.0 Nucleated Red Blood Cells % 0.0 Phosphorus Level 3.4 Platelet Count 323 # Potassium Level 3.9 Red Blood Count 4.16 L Red Cell Distribution Width 16.3 H Sodium Level 148 H White Blood Count 10.8 # Lab Scanned Report BLOOD TRANSFUSION Test 09/24/16 12:05 09/24/16 16:09 09/24/16 20:02 Bedside Glucose 125 84 106 Medications Medications Current Medications Ondansetron HCl (Zofran Inj) 4 mg Q6H PRN IV NAUSEA AND/OR VOMITING Last administered on 09/10/16 23:03; Admin Dose 4 MG; Start 09/09/16 at 20:00 Nitroglycerin (Nitroglycerin (Sl Tab) 0.4 Mg) 1 tab Q5M PRN SL CHEST PAIN; Start 09/09/16 at 20:00 Acetaminophen (Tylenol Liquid) 650 mg Q6H PRN PO PAIN LEVEL 1-3 OR FEVER Last administered on 09/23/16 03:49; Admin Dose 650 MG; Start 09/09/16 at 20:00 Morphine Sulfate (morphine) 2 mg Q4H PRN IV PAIN LEVEL 7-10 Last administered on 09/22/16 18:21; Admin Dose 2 MG; Start 09/09/16 at 20:00 Lorazepam (Ativan) 1 mg Q2H PRN IV ANXIETY Last administered on 09/22/16 16:46 ; Admin Dose 1 MG; Start 09/09/16 at 20:00 Glucose (Glutose) 15 gm Q15M PRN PO DECREASED GLUCOSE; Start 09/09/16 at 20:30 Glucose (Glutose) 22.5 gm Q15M PRN PO DECREASED GLUCOSE; Start 09/09/16 at 20: 30 Dextrose (D50w Syringe) 25 ml Q15M PRN IV DECREASED GLUCOSE Last administered on 09/20/16 13:44; Admin Dose 25 ML; Start 09/09/16 at 20:30 Dextrose (D50w Syringe) 50 ml Q15M PRN IV DECREASED GLUCOSE; Start 09/09/16 at 20:30 Glucagon (Glucagen) 1 mg Q15M PRN IM DECREASED GLUCOSE; Start 09/09/16 at 20:30 Glucose (Glutose) 15 gm Q15M PRN BUCCAL DECREASED GLUCOSE; Start 09/09/16 at 20 :30 Famotidine (Pepcid Iv) 20 mg DAILY IV Last administered on 09/24/16 08:54; Admin Dose 20 MG; Start 09/10/16 at 09:00 Aspirin (Aspirin) 81 mg DAILY PO Last administered on 09/24/16 08:54; Admin Dose 81 MG; Start 09/12/16 at 09:00 Insulin Aspart (Novolog Insulin Pen) NOVOLOG *MODERATE* ALGORI... Q4 SC Last administered on 09/24/16 08:56; Admin Dose 4 UNIT; Start 09/13/16 at 13:00 Hydralazine HCl (Apresoline) 10 mg Q4H PRN IV SBP >160 Last administered on 09/24 11:07; Admin Dose 10 MG; Start 09/17/16 at 07:00 Docusate Sodium (Colace Liquid Cup) 100 mg Q12 PO Last administered on 20:48; Admin Dose 100 MG; Start 09/17/16 at 09:00 Metoprolol Tartrate (Lopressor) 50 mg BID PO Last administered on 09/24/16 20: 07; Admin Dose 50 MG; Start 09/19/16 at 21:00 Haloperidol (Haldol) 2 mg Q4H PRN IM AGITATION Last administered on 09/22/16 05 :17; Admin Dose 2 MG; Start 09/20/16 at 05:30 Insulin Glargine (Lantus) 10 unit QAM SC Last administered on 09/24/16 08:56; Admin Dose 10 UNIT; Start 09/20/16 at 09:00 Furosemide (Lasix) 20 mg DAILY IV Last administered on 09/24/16 08:54; Admin Dose 20 MG; Start 09/23/16 at 13:30; Stop 09/26/16 at 13:29 Hydralazine HCl (Apresoline) 75 mg Q8 PO ; Start 09/24/16 at 22:00 QUITA SCHOFIELD MD Sep 24, 2016 20:30
--- NOTE | 2016-09-24 22:32 | CONS ---
Date/Time of Note Date/Time of Note DATE: 09/24/16 TIME: 22:32 Assessment/Plan Assessment/Plan Chief Complaint/Hosp Course IMPRESSION: thrombocytopenia in pt with severe sepsis, exposed to multiple meds with pos thrombocytopenic effect, including VANCO, ZOSYN, HEPARIN,CEFAZOLIN- RESOLVED NO EVIDENCE DIC cont to monitor blood count closely transfuse if platelet count less than [id number], considering severe sepsis HIPA- NEG PLATELET COUNT IMPROVING Leukocytosis. REACTIVE MONITOR IMPROVING Anemia. C/W ACD MONITOR BLOOD COUNT CLOSELY TRANSFUSE NEEDED Severe Sepsis with septic shock 2/2 Ecoli UTI /Bacteremia Acute renal failure - 2/2 to ATN from sepsis Type II DM - Hyperglycemic on D5W Metabolic / Lactic acidosis 2/2 #1 Acute resp failure now ventilator dependent NSTEMI versus demand ischemia Positive troponin, assess significance, assess for true acute coronary syndrome. Metabolic acidosis respiratory failure, vent dependent incomplete database Thank you for allowing me to take part in the care of this patient. I will continue to follow along very closely with you. Further recommendations will be made as the patient progresses through her inpatient hospital clinical course. Problems: Consultation Date/Type/Reason Admit Date/Time Sep 09, 2016 at 19:47 Initial Consult Date 09/13/16 Type of Consultation: hemeon Referring Provider: EMILIANO HENDRICKS 24 HR Interval Summary Free Text/Dictation PLATELET COUNT NORMALIZED NO BLEEDING Exam/Review of Systems Vital Signs Vitals Vital Signs Date Time Temp Pulse Resp B/P Pulse Ox O2 Delivery O2 Flow Rate FiO2 09/24/16 18:00 69 15 144/56 100 BIPAP 09/24/16 17:23 30 09/24/16 16:00 97.6 09/24/16 11:00 4.0 Intake and Output 09/23/16 09/23/16 09/24/16 15:00 23:00 07:00 Intake Total 600 ml 220 ml 650 ml Output Total 1425 ml 1295 ml 1460 ml Balance -825 ml -1075 ml -810 ml Exam Constitutional: alert, frail, oriented, No distress Psych: nl mood/affect Head: normocephalic Eyes: PERRL ENMT: No mucosa pink and moist (dry) Neck: non-tender Respiratory: diminished breath sounds, No crackles/rales Cardiovascular: regular rate and rhythm, No murmurs/extra sounds Gastrointestinal: bowel sounds, non-tender, other (klarge umbilical hernia), soft Extremities: edema Neurological: lethargic Results Result Diagram: 09/24/16 0430 09/24/16 0430 Results 24 hrs Laboratory Tests Test 09/24/16 04:30 09/24/16 08:15 09/24/16 11:00 09/24/16 12:05 Albumin 2.7 L Anion Gap 15 Basophils # 0.1 Basophils % 1.0 Blood Urea Nitrogen 33 H Calcium Level 8.6 Carbon Dioxide Level 30 Chloride Level 107 Creatinine 1.16 H Eosinophils # 0.3 Eosinophils % 2.9 Glucose Level 180 Hematocrit 37.4 Hemoglobin 12.0 Lymphocytes # 2.1 Lymphocytes % 19.3 Magnesium Level 1.8 Mean Corpuscular Hemoglobin 28.8 L Mean Corpuscular Hemoglobin Concent 32.1 Mean Corpuscular Volume 89.9 Mean Platelet Volume 12.3 H Monocytes # 1.2 H Monocytes % 10.8 Neutrophils # 7.0 Neutrophils % 65.4 Nucleated Red Blood Cells # 0.0 Nucleated Red Blood Cells % 0.0 Phosphorus Level 3.4 Platelet Count 323 # Potassium Level 3.9 Red Blood Count 4.16 L Red Cell Distribution Width 16.3 H Sodium Level 148 H White Blood Count 10.8 # Bedside Glucose 204 125 Lab Scanned Report BLOOD TRANSFUSION Test 09/24/16 16:09 09/24/16 20:02 Bedside Glucose 84 106 Medications Medications Current Medications Ondansetron HCl (Zofran Inj) 4 mg Q6H PRN IV NAUSEA AND/OR VOMITING Last administered on 09/10/16 23:03; Admin Dose 4 MG; Start 09/09/16 at 20:00 Nitroglycerin (Nitroglycerin (Sl Tab) 0.4 Mg) 1 tab Q5M PRN SL CHEST PAIN; Start 09/09/16 at 20:00 Acetaminophen (Tylenol Liquid) 650 mg Q6H PRN PO PAIN LEVEL 1-3 OR FEVER Last administered on 09/23/16 03:49; Admin Dose 650 MG; Start 09/09/16 at 20:00 Morphine Sulfate (morphine) 2 mg Q4H PRN IV PAIN LEVEL 7-10 Last administered on 09/22/16 18:21; Admin Dose 2 MG; Start 09/09/16 at 20:00 Lorazepam (Ativan) 1 mg Q2H PRN IV ANXIETY Last administered on 09/22/16 16:46 ; Admin Dose 1 MG; Start 09/09/16 at 20:00 Glucose (Glutose) 15 gm Q15M PRN PO DECREASED GLUCOSE; Start 09/09/16 at 20:30 Glucose (Glutose) 22.5 gm Q15M PRN PO DECREASED GLUCOSE; Start 09/09/16 at 20: 30 Dextrose (D50w Syringe) 25 ml Q15M PRN IV DECREASED GLUCOSE Last administered on 09/20/16 13:44; Admin Dose 25 ML; Start 09/09/16 at 20:30 Dextrose (D50w Syringe) 50 ml Q15M PRN IV DECREASED GLUCOSE; Start 09/09/16 at 20:30 Glucagon (Glucagen) 1 mg Q15M PRN IM DECREASED GLUCOSE; Start 09/09/16 at 20:30 Glucose (Glutose) 15 gm Q15M PRN BUCCAL DECREASED GLUCOSE; Start 09/09/16 at 20 :30 Famotidine (Pepcid Iv) 20 mg DAILY IV Last administered on 09/24/16 08:54; Admin Dose 20 MG; Start 09/10/16 at 09:00 Aspirin (Aspirin) 81 mg DAILY PO Last administered on 09/24/16 08:54; Admin Dose 81 MG; Start 09/12/16 at 09:00 Insulin Aspart (Novolog Insulin Pen) NOVOLOG *MODERATE* ALGORI... Q4 SC Last administered on 09/24/16 08:56; Admin Dose 4 UNIT; Start 09/13/16 at 13:00 Hydralazine HCl (Apresoline) 10 mg Q4H PRN IV SBP >160 Last administered on 09/24 11:07; Admin Dose 10 MG; Start 09/17/16 at 07:00 Docusate Sodium (Colace Liquid Cup) 100 mg Q12 PO Last administered on 20:48; Admin Dose 100 MG; Start 09/17/16 at 09:00 Metoprolol Tartrate (Lopressor) 50 mg BID PO Last administered on 09/24/16 20: 07; Admin Dose 50 MG; Start 09/19/16 at 21:00 Haloperidol (Haldol) 2 mg Q4H PRN IM AGITATION Last administered on 09/22/16 05 :17; Admin Dose 2 MG; Start 09/20/16 at 05:30 Insulin Glargine (Lantus) 10 unit QAM SC Last administered on 09/24/16 08:56; Admin Dose 10 UNIT; Start 09/20/16 at 09:00 Furosemide (Lasix) 20 mg DAILY IV Last administered on 09/24/16 08:54; Admin Dose 20 MG; Start 09/23/16 at 13:30; Stop 09/26/16 at 13:29 Hydralazine HCl (Apresoline) 75 mg Q8 PO Last administered on 09/24/16 21:37; Admin Dose 75 MG; Start 09/24/16 at 22:00 JEFF FRANK MD Sep 24, 2016 22:32
[2016-09-25] VITALS (26 sets, daily range): BP systolic 138–181; BP diastolic 53–105; PULSE 68–94; RESP 17–28
[2016-09-25] MEDS: hydrALAzine 20 MG INJ IV PRN ×3 (01:05→17:06)
[2016-09-25] MEDS: HALOPERIDOL 5 MG INJ IM PRN (01:13)
[2016-09-25] MEDS: INSULIN ASPART [NOVOLOG] 3 ML PEN SC SCH ×6 (01:22→21:00)
[2016-09-25] MEDS: LEVALBUTEROL (NEB) 1.25 MG/0.5 ML AMP HHN PRN (01:35)
[2016-09-25 05:02] LABS: ADD SCAN DIFF NO
[2016-09-25 05:14] LABS: BASOPHIL # 0.1 10^3/ul (0.0-0.1); EOSINOPHILS # 0.3 10^3/ul (0.0-0.5); EOSINOPHILS % 2.8 % (0.0-7.0); HEMATOCRIT 36.8 % (37.0-47.0); HEMOGLOBIN 11.6 g/dl (12.0-16.0); LYMPHOCYTES # 2.4 10^3/ul (0.8-2.9); LYMPHOCYTES % 24.6 % (15.0-51.0); MEAN CORPUSCULAR HEMOGLOBIN 28.6 pg (29.0-33.0); MEAN CORPUSCULAR HGB CONC 31.5 g/dl (32.0-37.0); MEAN CORPUSCULAR VOLUME 90.6 fl (82.0-101.0); MEAN PLATELET VOLUME 12.1 fl (7.4-10.4); MONOCYTE # 1.1 10^3/ul (0.3-0.9); MONOCYTES % 10.9 % (0.0-11.0); NEUTROPHIL # 5.8 10^3/ul (1.6-7.5); NEUTROPHILS % 60.2 % (39.0-77.0); PLATELET COUNT 320 10^3/UL (140-415); RED BLOOD COUNT 4.06 10^6/ul (4.20-5.40); RED CELL DISTRIBUTION WIDTH 16.4 % (11.5-14.5); WHITE BLOOD COUNT 9.7 10^3/ul (4.8-10.8)
[2016-09-25 05:20] LABS: ALBUMIN 2.8 g/dl (3.3-4.9); POTASSIUM 3.7 mmol/L (3.5-5.1)
[2016-09-25 05:23] LABS: CREATININE 1.18 mg/dl (0.44-1.00)
[2016-09-25 05:24] LABS: CALCIUM 8.7 mg/dl (8.4-10.2); PHOSPHORUS 3.3 mg/dl (2.5-4.9)
[2016-09-25] MEDS: FUROSEMIDE 20 MG INJ IV SCH (08:11)
[2016-09-25] MEDS: METOPROLOL 50 MG TAB PO SCH ×2 (08:12→21:00)
[2016-09-25] MEDS: DOCUSATE SODIUM 10 MG/ML (10ML CUP) PO SCH ×2 (08:21→21:00)
[2016-09-25] MEDS: FAMOTIDINE 20 MG INJ IV SCH (08:30)
[2016-09-25] MEDS: ASPIRIN 81 MG TAB PO SCH (08:30)
[2016-09-25] MEDS: INSULIN GLARGINE [LANtus] 3 ML PEN SC SCH (09:53)
--- NOTE | 2016-09-25 10:02 | PN ---
Date/Time of Note Date/Time of Note DATE: 09/25/16 TIME: 10:01 Assessment/Plan VTE Prophylaxis VTE Prophylaxis Intervention: heparin Lines/Catheters IV Catheter Type (from Nrsg): Central Line Central line still needed: Yes Urinary Cath still in place: Yes Reason Cath still needed: other (indicate) Assessment/Plan Assessment/Plan 1. s/p Septic shock - 2/2 Ecoli UTI /Bacteremia - much improved 2. Acute renal failure r/o CKD- 2/2 to ATN from sepsis - improved 3. Type II DM - controlled on SSI 4. Metabolic / Lactic acidosis 2/2 #1: resolved 5. Acute Hypercapnic and Hypoxemic Resp failure - s/p self extubation - on BiPAP 6. NSTEMI versus elevated trop - CV monitoring. ECHO = EF 45-50 by echo this admit. 7. Thrombocytopenia likely associated with sepsis vs meds vs mild DIC: HIT antibody negative/ s/p FFP and platelet transfusion - resolved 8. Severe Iron deficiency: + occult test stool. No signs of GI bleeding presently. S/p EGD with gastritis findings only. s/p pRBC transfusion/ and IV iron infusion PLAN: - Plan to transfer to telemetry - ST / PT eval pending /keep montoya till after PT eval - Continue abx per ID - Continue serial labs and monitoring - Will need prompt outpt mgt of her hernia once stable - Consider restarting heparin if ok with heme onc PROPHYLAXIS: Pepcid / SCDS CRITICAL CARE TIME: >35 mins Subjective 24 Hr Interval Summary Free Text/Dictation Patient seen and examined. stable on NC, communicative and in a good mood Exam/Review of Systems Vital Signs Vitals Vital Signs Date Time Temp Pulse Resp B/P Pulse Ox O2 Delivery O2 Flow Rate FiO2 09/25/16 07:00 91 19 166/105 100 Nasal Cannula 2.0 09/25/16 04:00 97.7 09/25/16 01:20 30 Intake and Output 09/24/16 09/24/16 09/25/16 15:00 23:00 07:00 Intake Total 540 ml 420 ml 520 ml Output Total 2425 ml 710 ml 660 ml Balance -1885 ml -290 ml -140 ml Exam Constitutional: alert, frail, oriented, No distress Psych: nl mood/affect Head: normocephalic Eyes: PERRL ENMT: No mucosa pink and moist (dry) Neck: non-tender Respiratory: diminished breath sounds, No crackles/rales Cardiovascular: regular rate and rhythm, No murmurs/extra sounds Gastrointestinal: bowel sounds, non-tender, other (klarge umbilical hernia), soft Extremities: edema Neurological: lethargic Results Result Diagram: 09/25/16 0400 09/25/16 0400 Results 24 hrs Laboratory Tests Test 09/24/16 11:00 09/24/16 12:05 09/24/16 16:09 09/24/16 20:02 Lab Scanned Report BLOOD TRANSFUSION Bedside Glucose 125 84 106 Test 09/25/16 01:18 09/25/16 04:00 09/25/16 06:29 09/25/16 09:48 Bedside Glucose 165 197 187 Albumin 2.8 L Anion Gap 11 Basophils # 0.1 Basophils % 1.0 Blood Urea Nitrogen 31 H Calcium Level 8.7 Carbon Dioxide Level 34 H Chloride Level 106 Creatinine 1.18 H Eosinophils # 0.3 Eosinophils % 2.8 Glucose Level 181 Hematocrit 36.8 L Hemoglobin 11.6 L Lymphocytes # 2.4 Lymphocytes % 24.6 Mean Corpuscular Hemoglobin 28.6 L Mean Corpuscular Hemoglobin Concent 31.5 L Mean Corpuscular Volume 90.6 Mean Platelet Volume 12.1 H Monocytes # 1.1 H Monocytes % 10.9 Neutrophils # 5.8 Neutrophils % 60.2 Nucleated Red Blood Cells # 0.0 Nucleated Red Blood Cells % 0.0 Phosphorus Level 3.3 Platelet Count 320 Potassium Level 3.7 Red Blood Count 4.06 L Red Cell Distribution Width 16.4 H Sodium Level 147 H White Blood Count 9.7 Medications Medications Current Medications Ondansetron HCl (Zofran Inj) 4 mg Q6H PRN IV NAUSEA AND/OR VOMITING Last administered on 09/10/16 23:03; Admin Dose 4 MG; Start 09/09/16 at 20:00 Nitroglycerin (Nitroglycerin (Sl Tab) 0.4 Mg) 1 tab Q5M PRN SL CHEST PAIN; Start 09/09/16 at 20:00 Acetaminophen (Tylenol Liquid) 650 mg Q6H PRN PO PAIN LEVEL 1-3 OR FEVER Last administered on 09/23/16 03:49; Admin Dose 650 MG; Start 09/09/16 at 20:00 Morphine Sulfate (morphine) 2 mg Q4H PRN IV PAIN LEVEL 7-10 Last administered on 09/22/16 18:21; Admin Dose 2 MG; Start 09/09/16 at 20:00 Lorazepam (Ativan) 1 mg Q2H PRN IV ANXIETY Last administered on 09/22/16 16:46 ; Admin Dose 1 MG; Start 09/09/16 at 20:00 Glucose (Glutose) 15 gm Q15M PRN PO DECREASED GLUCOSE; Start 09/09/16 at 20:30 Glucose (Glutose) 22.5 gm Q15M PRN PO DECREASED GLUCOSE; Start 09/09/16 at 20: 30 Dextrose (D50w Syringe) 25 ml Q15M PRN IV DECREASED GLUCOSE Last administered on 09/20/16 13:44; Admin Dose 25 ML; Start 09/09/16 at 20:30 Dextrose (D50w Syringe) 50 ml Q15M PRN IV DECREASED GLUCOSE; Start 09/09/16 at 20:30 Glucagon (Glucagen) 1 mg Q15M PRN IM DECREASED GLUCOSE; Start 09/09/16 at 20:30 Glucose (Glutose) 15 gm Q15M PRN BUCCAL DECREASED GLUCOSE; Start 09/09/16 at 20 :30 Famotidine (Pepcid Iv) 20 mg DAILY IV Last administered on 09/25/16 08:30; Admin Dose 20 MG; Start 09/10/16 at 09:00 Aspirin (Aspirin) 81 mg DAILY PO Last administered on 09/25/16 08:30; Admin Dose 81 MG; Start 09/12/16 at 09:00 Insulin Aspart (Novolog Insulin Pen) NOVOLOG *MODERATE* ALGORI... Q4 SC Last administered on 09/25/16 09:53; Admin Dose 4 UNIT; Start 09/13/16 at 13:00 Hydralazine HCl (Apresoline) 10 mg Q4H PRN IV SBP >160 Last administered on 09/25 08:11; Admin Dose 10 MG; Start 09/17/16 at 07:00 Docusate Sodium (Colace Liquid Cup) 100 mg Q12 PO Last administered on 20:48; Admin Dose 100 MG; Start 09/17/16 at 09:00 Metoprolol Tartrate (Lopressor) 50 mg BID PO Last administered on 09/25/16 08: 12; Admin Dose 50 MG; Start 09/19/16 at 21:00 Haloperidol (Haldol) 2 mg Q4H PRN IM AGITATION Last administered on 09/25/16 01 :13; Admin Dose 2 MG; Start 09/20/16 at 05:30 Insulin Glargine (Lantus) 10 unit QAM SC Last administered on 09/25/16 09:53; Admin Dose 10 UNIT; Start 09/20/16 at 09:00 Furosemide (Lasix) 20 mg DAILY IV Last administered on 09/25/16 08:11; Admin Dose 20 MG; Start 09/23/16 at 13:30; Stop 09/26/16 at 13:29 Hydralazine HCl (Apresoline) 75 mg Q8 PO Last administered on 09/25/16 06:21; Admin Dose 75 MG; Start 09/24/16 at 22:00 Procedures Procedures PROCEDURE: XR Chest 1 View. CLINICAL INDICATION: Shortness of breath TECHNIQUE: AP view of the chest were obtained. COMPARISON: Yesterday FINDINGS: The heart size is within normal limits. Calcified atherosclerosis is noted in the aorta. Nasogastric tube is stable and appears in grossly appropriate location. Right-sided central line is unchanged. Right lower lobe infiltrates have mildly decreased. Moderate residual combined small pleural effusion remains. Left lower lobe infiltrates combined small pleural effusion are stable. The osseous structures are unchanged. IMPRESSION: Calcified atherosclerosis in the aorta. Interval decrease in right lower lobe infiltrates. Moderate residual combined small pleural effusion remains. Stable left lower lobe infiltrates combined with small pleural effusion. RPTAT: AA .Praveen Martell MD, Date Time Electronically viewed and signed by .Praveen Martell MD, on 09/24/2016 07:56 EMILIANO HENDRICKS Sep 25, 2016 10:02
[2016-09-25] MEDS: HEPARIN 5,000 UNIT/0.5 ML SYG SC SCH ×2 (11:00→21:00)
--- NOTE | 2016-09-25 11:23 | CONS ---
Date/Time of Note Date/Time of Note DATE: 09/25/16 TIME: 11:21 Assessment/Plan Assessment/Plan Chief Complaint/Hosp Course IMPRESSION: 1. Positive troponin, assess significance, assess for true acute coronary syndrome.-now downtrending in setting ongoing renal failure 2. Hypotension, shock state. Rule out cardiac etiology-EF 45-50 by echo this admit-improved off of pressors 3. Abnormal electrocardiogram, assess for acute coronary syndrome. 4. Respiratory failure s/p extubation-improving off of BIPAP currently 5. Leukocytosis. 6. Anemia. 7. Thrombocytopenia-improved 8. Renal failure-ongoing/stable to slightly improved 9. Bacteremia with gram negative rods. 10.CHF-systolic and diastolic acute EF 45-50 by echo this admit REcc: -Tele -continue abx's and f/u ca data -Continue asa -Continue BB and continue to increase hydralazine to improve BP control -Follow volume status closely on gentle lasix diuresis -Continue PRN BIPAP resp support as necessary only -Continue bronchodilators Problems: Consultation Date/Type/Reason Admit Date/Time Sep 09, 2016 at 19:47 Initial Consult Date 09/11/16 Type of Consultation: Cardiology Reason for Consultation positive troponin Referring Provider: EMILIANO HENDRICKS Exam/Review of Systems Vital Signs Vitals Vital Signs Date Time Temp Pulse Resp B/P Pulse Ox O2 Delivery O2 Flow Rate FiO2 09/25/16 11:00 70 18 145/53 100 Nasal Cannula 2.0 09/25/16 08:00 98.4 09/25/16 01:20 30 Intake and Output 09/24/16 09/24/16 09/25/16 15:00 23:00 07:00 Intake Total 540 ml 420 ml 520 ml Output Total 2425 ml 710 ml 660 ml Balance -1885 ml -290 ml -140 ml Exam Review of Systems: CONSTITUTIONAL: No fevers, chills. PULMONARY: No sob CARDIOVASCULAR: No chest pain/palpitations GASTROINTESTINAL: No nausea/vomiting. GENITOURINARY: No hematuria/dysuria. MUSCULOSKELETAL: No myagias/arthalgias. PSYCHIATRIC: The patient denies depression. NEUROLOGIC: Mild generalized weakness Constitutional: alert Psych: no complaints Head: normocephalic ENMT: mucosa pink and moist Neck: jvd (9 cm water), supple Respiratory: diminished breath sounds (at bases/B) Cardiovascular: regular rate and rhythm Gastrointestinal: non-tender, soft Musculoskeletal: muscle tone (normal) Extremities: edema (trace/B) Neurological: lethargic Results Result Diagram: 09/25/16 0400 09/25/16 0400 Results 24 hrs Laboratory Tests Test 09/24/16 12:05 09/24/16 16:09 09/24/16 20:02 09/25/16 01:18 Bedside Glucose 125 84 106 165 Test 09/25/16 04:00 09/25/16 06:29 09/25/16 09:48 Albumin 2.8 L Anion Gap 11 Basophils # 0.1 Basophils % 1.0 Blood Urea Nitrogen 31 H Calcium Level 8.7 Carbon Dioxide Level 34 H Chloride Level 106 Creatinine 1.18 H Eosinophils # 0.3 Eosinophils % 2.8 Glucose Level 181 Hematocrit 36.8 L Hemoglobin 11.6 L Lymphocytes # 2.4 Lymphocytes % 24.6 Mean Corpuscular Hemoglobin 28.6 L Mean Corpuscular Hemoglobin Concent 31.5 L Mean Corpuscular Volume 90.6 Mean Platelet Volume 12.1 H Monocytes # 1.1 H Monocytes % 10.9 Neutrophils # 5.8 Neutrophils % 60.2 Nucleated Red Blood Cells # 0.0 Nucleated Red Blood Cells % 0.0 Phosphorus Level 3.3 Platelet Count 320 Potassium Level 3.7 Red Blood Count 4.06 L Red Cell Distribution Width 16.4 H Sodium Level 147 H White Blood Count 9.7 Bedside Glucose 197 187 Medications Medications Current Medications Ondansetron HCl (Zofran Inj) 4 mg Q6H PRN IV NAUSEA AND/OR VOMITING Last administered on 09/10/16 23:03; Admin Dose 4 MG; Start 09/09/16 at 20:00 Nitroglycerin (Nitroglycerin (Sl Tab) 0.4 Mg) 1 tab Q5M PRN SL CHEST PAIN; Start 09/09/16 at 20:00 Acetaminophen (Tylenol Liquid) 650 mg Q6H PRN PO PAIN LEVEL 1-3 OR FEVER Last administered on 09/23/16 03:49; Admin Dose 650 MG; Start 09/09/16 at 20:00 Morphine Sulfate (morphine) 2 mg Q4H PRN IV PAIN LEVEL 7-10 Last administered on 09/22/16 18:21; Admin Dose 2 MG; Start 09/09/16 at 20:00 Lorazepam (Ativan) 1 mg Q2H PRN IV ANXIETY Last administered on 09/22/16 16:46 ; Admin Dose 1 MG; Start 09/09/16 at 20:00 Glucose (Glutose) 15 gm Q15M PRN PO DECREASED GLUCOSE; Start 09/09/16 at 20:30 Glucose (Glutose) 22.5 gm Q15M PRN PO DECREASED GLUCOSE; Start 09/09/16 at 20: 30 Dextrose (D50w Syringe) 25 ml Q15M PRN IV DECREASED GLUCOSE Last administered on 09/20/16 13:44; Admin Dose 25 ML; Start 09/09/16 at 20:30 Dextrose (D50w Syringe) 50 ml Q15M PRN IV DECREASED GLUCOSE; Start 09/09/16 at 20:30 Glucagon (Glucagen) 1 mg Q15M PRN IM DECREASED GLUCOSE; Start 09/09/16 at 20:30 Glucose (Glutose) 15 gm Q15M PRN BUCCAL DECREASED GLUCOSE; Start 09/09/16 at 20 :30 Famotidine (Pepcid Iv) 20 mg DAILY IV Last administered on 09/25/16 08:30; Admin Dose 20 MG; Start 09/10/16 at 09:00 Aspirin (Aspirin) 81 mg DAILY PO Last administered on 09/25/16 08:30; Admin Dose 81 MG; Start 09/12/16 at 09:00 Insulin Aspart (Novolog Insulin Pen) NOVOLOG *MODERATE* ALGORI... Q4 SC Last administered on 09/25/16 09:53; Admin Dose 4 UNIT; Start 09/13/16 at 13:00 Hydralazine HCl (Apresoline) 10 mg Q4H PRN IV SBP >160 Last administered on 09/25 08:11; Admin Dose 10 MG; Start 09/17/16 at 07:00 Docusate Sodium (Colace Liquid Cup) 100 mg Q12 PO Last administered on 20:48; Admin Dose 100 MG; Start 09/17/16 at 09:00 Metoprolol Tartrate (Lopressor) 50 mg BID PO Last administered on 09/25/16 08: 12; Admin Dose 50 MG; Start 09/19/16 at 21:00 Haloperidol (Haldol) 2 mg Q4H PRN IM AGITATION Last administered on 09/25/16 01 :13; Admin Dose 2 MG; Start 09/20/16 at 05:30 Insulin Glargine (Lantus) 10 unit QAM SC Last administered on 09/25/16 09:53; Admin Dose 10 UNIT; Start 09/20/16 at 09:00 Furosemide (Lasix) 20 mg DAILY IV Last administered on 09/25/16 08:11; Admin Dose 20 MG; Start 09/23/16 at 13:30; Stop 09/26/16 at 13:29 Hydralazine HCl (Apresoline) 75 mg Q8 PO Last administered on 09/25/16 06:21; Admin Dose 75 MG; Start 09/24/16 at 22:00 Heparin Sodium (Porcine) (Heparin (5000 Units/0.5 ml)) 5,000 unit BID SC ; Start 09/25/16 at 11:00 ALLISON CONTRERAS Sep 25, 2016 11:23
--- NOTE | 2016-09-25 12:57 | PN ---
DATE: 09/25/2016 SUBJECTIVE: No acute events. The patient is awake, comfortable on nasal cannula. No fevers. LABORATORIES: WBC 9.7, H and H 11.6 and 36.8, platelets 320, no shift, no bands. BUN 31, creatinine 1.18. INDWELLINGS: NG tube, Alaniz catheter, right IJ triple-lumen catheter. PHYSICAL EXAMINATION: GENERAL: Fragile, elderly woman who is awake, in no distress. HEENT: Head atraumatic, normocephalic. Sclerae anicteric. Buccal mucosa dry. NECK: Supple. CHEST: Rise symmetrical. Breath sounds diminished to bases. HEART: S1, S2. ABDOMEN: Soft. Bowel tones present. EXTREMITIES: Without cyanosis. ASSESSMENT: 1. Status post severe sepsis with shock. 2. Status post respiratory failure. 3. Status post Escherichia coli urinary tract infection with bacteremia. 4. Renal failure, improving. 5. Anemia. 6. Resolving encephalopathy. PLAN: The patient remains stable, she is off antibiotics. Continue present care. Follow recommendations of consultants and panculture p.r.n. Dictated By: CHLOE MONROY RESISTOR COATER for DELANO DUNNE MD NI/NTS Conf#: [id number] DID#: [id number] MTDD
--- NOTE | 2016-09-25 16:17 | PN ---
DATE: 09/25/2016 SUBJECTIVE: Patient Larry is stable this morning following extubation several days ago. No resp iratory distress. OBJECTIVE: VITAL SIGNS: Temperature 98, pulse 89, blood pressure 155/79, O2 saturation 98% on 2 L nasal cannul a. NECK: Supple. No JVD or lymphadenopathy. CARDIAC: S1, S2, no added sounds or murmurs. CHEST: Diminished air entry bilaterally. ABDOMEN: Soft, nontender. No guarding or rebound. EXTREMITIES: No cyanosis, clubbing. Edema +1. NEUROLOGIC: Generalized weakness. LABORATORY DATA: White count 9.7, hemoglobin 11.6, platelets of 320. Chemistry: BUN 31, creatinine 1.18. Chest x-ray was reviewed, shows mild congestive cardiac failure. IMPRESSION AND PLAN: 1. Status post respiratory failure. 2. Status post extubation remains stable, can be transferred to telemetry floor. Will need physica l therapy evaluation, speech therapy evaluation and continue antibiotics. Dictated By: PEDRO YORK/ARLENE Conf#: [id number] DID#: [id number]
[2016-09-25] MEDS: DEXTROSE 50% 50 ML SYRINGE IV PRN (17:40)
--- NOTE | 2016-09-25 19:54 | CONS ---
Date/Time of Note Date/Time of Note DATE: 09/25/16 TIME: 19:53 Assessment/Plan Assessment/Plan Chief Complaint/Hosp Course IMPRESSION: 1. Patient has SHALOM BETTER 2. S/P ATN 3. S/P vdrf NOW ON BIPAP 4.. The patient has Escherichia coli bacteremia, E. coli urinary tract infection. 5 hypernatremia better 6 pleural effusion on lasix 7 hypernatremia PLAN CK BMP lasix Problems: Consultation Date/Type/Reason Admit Date/Time Sep 09, 2016 at 19:47 Initial Consult Date 09/11/16 Type of Consultation: renal Referring Provider: EMILIANO HENDRICKS Exam/Review of Systems Vital Signs Vitals Vital Signs Date Time Temp Pulse Resp B/P Pulse Ox O2 Delivery O2 Flow Rate FiO2 09/25/16 19:00 88 17 146/65 99 Nasal Cannula 2.0 09/25/16 18:00 97.9 09/25/16 01:20 30 Intake and Output 09/24/16 09/24/16 09/25/16 15:00 23:00 07:00 Intake Total 540 ml 420 ml 520 ml Output Total 2425 ml 710 ml 660 ml Balance -1885 ml -290 ml -140 ml Exam Respiratory: diminished breath sounds Cardiovascular: regular rate and rhythm Gastrointestinal: soft Extremities: edema (tr) Results Result Diagram: 09/25/16 0400 09/25/16 0400 Results 24 hrs Laboratory Tests Test 09/24/16 20:02 09/25/16 01:18 09/25/16 04:00 09/25/16 06:29 Bedside Glucose 106 165 197 Albumin 2.8 L Anion Gap 11 Basophils # 0.1 Basophils % 1.0 Blood Urea Nitrogen 31 H Calcium Level 8.7 Carbon Dioxide Level 34 H Chloride Level 106 Creatinine 1.18 H Eosinophils # 0.3 Eosinophils % 2.8 Glucose Level 181 Hematocrit 36.8 L Hemoglobin 11.6 L Lymphocytes # 2.4 Lymphocytes % 24.6 Mean Corpuscular Hemoglobin 28.6 L Mean Corpuscular Hemoglobin Concent 31.5 L Mean Corpuscular Volume 90.6 Mean Platelet Volume 12.1 H Monocytes # 1.1 H Monocytes % 10.9 Neutrophils # 5.8 Neutrophils % 60.2 Nucleated Red Blood Cells # 0.0 Nucleated Red Blood Cells % 0.0 Phosphorus Level 3.3 Platelet Count 320 Potassium Level 3.7 Red Blood Count 4.06 L Red Cell Distribution Width 16.4 H Sodium Level 147 H White Blood Count 9.7 Test 09/25/16 09:48 09/25/16 12:41 09/25/16 16:53 09/25/16 16:54 Bedside Glucose 187 199 64 L 63 L Test 09/25/16 17:07 09/25/16 17:23 09/25/16 17:43 09/25/16 18:04 Bedside Glucose 75 79 94 90 Medications Medications Current Medications Ondansetron HCl (Zofran Inj) 4 mg Q6H PRN IV NAUSEA AND/OR VOMITING Last administered on 09/10/16 23:03; Admin Dose 4 MG; Start 09/09/16 at 20:00 Nitroglycerin (Nitroglycerin (Sl Tab) 0.4 Mg) 1 tab Q5M PRN SL CHEST PAIN; Start 09/09/16 at 20:00 Acetaminophen (Tylenol Liquid) 650 mg Q6H PRN PO PAIN LEVEL 1-3 OR FEVER Last administered on 09/23/16 03:49; Admin Dose 650 MG; Start 09/09/16 at 20:00 Morphine Sulfate (morphine) 2 mg Q4H PRN IV PAIN LEVEL 7-10 Last administered on 09/22/16 18:21; Admin Dose 2 MG; Start 09/09/16 at 20:00 Lorazepam (Ativan) 1 mg Q2H PRN IV ANXIETY Last administered on 09/22/16 16:46 ; Admin Dose 1 MG; Start 09/09/16 at 20:00 Glucose (Glutose) 15 gm Q15M PRN PO DECREASED GLUCOSE; Start 09/09/16 at 20:30 Glucose (Glutose) 22.5 gm Q15M PRN PO DECREASED GLUCOSE; Start 09/09/16 at 20: 30 Dextrose (D50w Syringe) 25 ml Q15M PRN IV DECREASED GLUCOSE Last administered on 09/25/16 17:40; Admin Dose 25 ML; Start 09/09/16 at 20:30 Dextrose (D50w Syringe) 50 ml Q15M PRN IV DECREASED GLUCOSE; Start 09/09/16 at 20:30 Glucagon (Glucagen) 1 mg Q15M PRN IM DECREASED GLUCOSE; Start 09/09/16 at 20:30 Glucose (Glutose) 15 gm Q15M PRN BUCCAL DECREASED GLUCOSE; Start 09/09/16 at 20 :30 Famotidine (Pepcid Iv) 20 mg DAILY IV Last administered on 09/25/16 08:30; Admin Dose 20 MG; Start 09/10/16 at 09:00 Aspirin (Aspirin) 81 mg DAILY PO Last administered on 09/25/16 08:30; Admin Dose 81 MG; Start 09/12/16 at 09:00 Insulin Aspart (Novolog Insulin Pen) NOVOLOG *MODERATE* ALGORI... Q4 SC Last administered on 09/25/16 12:43; Admin Dose 4 UNIT; Start 09/13/16 at 13:00 Hydralazine HCl (Apresoline) 10 mg Q4H PRN IV SBP >160 Last administered on 09/25 17:06; Admin Dose 10 MG; Start 09/17/16 at 07:00 Docusate Sodium (Colace Liquid Cup) 100 mg Q12 PO Last administered on 20:48; Admin Dose 100 MG; Start 09/17/16 at 09:00 Metoprolol Tartrate (Lopressor) 50 mg BID PO Last administered on 09/25/16 08: 12; Admin Dose 50 MG; Start 09/19/16 at 21:00 Haloperidol (Haldol) 2 mg Q4H PRN IM AGITATION Last administered on 09/25/16 01 :13; Admin Dose 2 MG; Start 09/20/16 at 05:30 Furosemide (Lasix) 20 mg DAILY IV Last administered on 09/25/16 08:11; Admin Dose 20 MG; Start 09/23/16 at 13:30; Stop 09/26/16 at 13:29 Heparin Sodium (Porcine) (Heparin (5000 Units/0.5 ml)) 5,000 unit BID SC ; Start 09/25/16 at 11:00 Hydralazine HCl (Apresoline) 100 mg Q8 PO Last administered on 09/25/16 13:54; Admin Dose 100 MG; Start 09/25/16 at 14:00 QUITA SCHOFIELD MD Sep 25, 2016 19:54
--- NOTE | 2016-09-25 21:46 | CONS ---
Date/Time of Note Date/Time of Note DATE: 09/25/16 TIME: 21:46 Assessment/Plan Assessment/Plan Chief Complaint/Hosp Course IMPRESSION: thrombocytopenia in pt with severe sepsis, exposed to multiple meds with pos thrombocytopenic effect, including VANCO, ZOSYN, HEPARIN,CEFAZOLIN- RESOLVED NO EVIDENCE DIC cont to monitor blood count closely transfuse if [place] less [place] [id number], considering severe sepsis HIPA- NEG PLATELET COUNT IMPROVING Leukocytosis. REACTIVE MONITOR IMPROVING Anemia. C/W ACD MONITOR BLOOD COUNT CLOSELY TRANSFUSE NEEDED Severe Sepsis with septic shock 2/2 Ecoli UTI /Bacteremia Acute renal failure - 2/2 to ATN from sepsis Type II DM - Hyperglycemic on D5W Metabolic / Lactic acidosis 2/2 #1 Acute resp failure now ventilator dependent NSTEMI versus demand ischemia Positive troponin, assess significance, assess for true acute coronary syndrome. Metabolic acidosis respiratory failure, vent dependent incomplete database Thank you for allowing me to take part in the care of this patient. I will continue to follow along very closely with you. Further recommendations will be made as the patient progresses through her inpatient hospital clinical course. Problems: Consultation Date/Type/Reason Admit Date/Time Sep 09, 2016 at 19:47 Initial Consult Date 09/13/16 Type of Consultation: hemeon Referring Provider: EMILIANO HENDRICKS 24 HR Interval Summary Free Text/Dictation COUNT IMPROVING Exam/Review of Systems Vital Signs Vitals Vital Signs Date Time Temp Pulse Resp B/P Pulse Ox O2 Delivery O2 Flow Rate FiO2 09/25/16 19:00 88 17 146/65 99 Nasal Cannula 2.0 09/25/16 18:00 97.9 09/25/16 01:20 30 Intake and Output 09/24/16 09/24/16 09/25/16 15:00 23:00 07:00 Intake Total 540 ml 420 ml 520 ml Output Total 2425 ml 710 ml 660 ml Balance -1885 ml -290 ml -140 ml Exam Constitutional: alert, frail, oriented, No distress Psych: nl mood/affect Head: normocephalic Eyes: PERRL ENMT: No mucosa pink and moist (dry) Neck: non-tender Respiratory: diminished breath sounds, No crackles/rales Cardiovascular: regular rate and rhythm, No murmurs/extra sounds Gastrointestinal: bowel sounds, non-tender, other (klarge umbilical hernia), soft Extremities: edema Neurological: lethargic Results Result Diagram: 09/25/16 0400 09/25/16 0400 Results 24 hrs Laboratory Tests Test 09/25/16 01:18 09/25/16 04:00 09/25/16 06:29 09/25/16 09:48 Bedside Glucose 165 197 187 Albumin 2.8 L Anion Gap 11 Basophils # 0.1 Basophils % 1.0 Blood Urea Nitrogen 31 H Calcium Level 8.7 Carbon Dioxide Level 34 H Chloride Level 106 Creatinine 1.18 H Eosinophils # 0.3 Eosinophils % 2.8 Glucose Level 181 Hematocrit 36.8 L Hemoglobin 11.6 L Lymphocytes # 2.4 Lymphocytes % 24.6 Mean Corpuscular Hemoglobin 28.6 L Mean Corpuscular Hemoglobin Concent 31.5 L Mean Corpuscular Volume 90.6 Mean Platelet Volume 12.1 H Monocytes # 1.1 H Monocytes % 10.9 Neutrophils # 5.8 Neutrophils % 60.2 Nucleated Red Blood Cells # 0.0 Nucleated Red Blood Cells % 0.0 Phosphorus Level 3.3 Platelet Count 320 Potassium Level 3.7 Red Blood Count 4.06 L Red Cell Distribution Width 16.4 H Sodium Level 147 H White Blood Count 9.7 Test 09/25/16 12:41 09/25/16 16:53 09/25/16 16:54 09/25/16 17:07 Bedside Glucose 199 64 L 63 L 75 Test 09/25/16 17:23 09/25/16 17:43 09/25/16 18:04 09/25/16 20:53 Bedside Glucose 79 94 90 106 Medications Medications Current Medications Ondansetron HCl (Zofran Inj) 4 mg Q6H PRN IV NAUSEA AND/OR VOMITING Last administered on 09/10/16 23:03; Admin Dose 4 MG; Start 09/09/16 at 20:00 Nitroglycerin (Nitroglycerin (Sl Tab) 0.4 Mg) 1 tab Q5M PRN SL CHEST PAIN; Start 09/09/16 at 20:00 Acetaminophen (Tylenol Liquid) 650 mg Q6H PRN PO PAIN LEVEL 1-3 OR FEVER Last administered on 09/23/16 03:49; Admin Dose 650 MG; Start 09/09/16 at 20:00 Morphine Sulfate (morphine) 2 mg Q4H PRN IV PAIN LEVEL 7-10 Last administered on 09/22/16 18:21; Admin Dose 2 MG; Start 09/09/16 at 20:00 Lorazepam (Ativan) 1 mg Q2H PRN IV ANXIETY Last administered on 09/22/16 16:46 ; Admin Dose 1 MG; Start 09/09/16 at 20:00 Glucose (Glutose) 15 gm Q15M PRN PO DECREASED GLUCOSE; Start 09/09/16 at 20:30 Glucose (Glutose) 22.5 gm Q15M PRN PO DECREASED GLUCOSE; Start 09/09/16 at 20: 30 Dextrose (D50w Syringe) 25 ml Q15M PRN IV DECREASED GLUCOSE Last administered on 09/25/16 17:40; Admin Dose 25 ML; Start 09/09/16 at 20:30 Dextrose (D50w Syringe) 50 ml Q15M PRN IV DECREASED GLUCOSE; Start 09/09/16 at 20:30 Glucagon (Glucagen) 1 mg Q15M PRN IM DECREASED GLUCOSE; Start 09/09/16 at 20:30 Glucose (Glutose) 15 gm Q15M PRN BUCCAL DECREASED GLUCOSE; Start 09/09/16 at 20 :30 Famotidine (Pepcid Iv) 20 mg DAILY IV Last administered on 09/25/16 08:30; Admin Dose 20 MG; Start 09/10/16 at 09:00 Aspirin (Aspirin) 81 mg DAILY PO Last administered on 09/25/16 08:30; Admin Dose 81 MG; Start 09/12/16 at 09:00 Insulin Aspart (Novolog Insulin Pen) NOVOLOG *MODERATE* ALGORI... Q4 SC Last administered on 09/25/16 12:43; Admin Dose 4 UNIT; Start 09/13/16 at 13:00 Hydralazine HCl (Apresoline) 10 mg Q4H PRN IV SBP >160 Last administered on 09/25 17:06; Admin Dose 10 MG; Start 09/17/16 at 07:00 Docusate Sodium (Colace Liquid Cup) 100 mg Q12 PO Last administered on 21:00; Admin Dose 100 MG; Start 09/17/16 at 09:00 Metoprolol Tartrate (Lopressor) 50 mg BID PO Last administered on 09/25/16 21: 00; Admin Dose 50 MG; Start 09/19/16 at 21:00 Haloperidol (Haldol) 2 mg Q4H PRN IM AGITATION Last administered on 09/25/16 01 :13; Admin Dose 2 MG; Start 09/20/16 at 05:30 Furosemide (Lasix) 20 mg DAILY IV Last administered on 09/25/16 08:11; Admin Dose 20 MG; Start 09/23/16 at 13:30; Stop 09/26/16 at 13:29 Heparin Sodium (Porcine) (Heparin (5000 Units/0.5 ml)) 5,000 unit BID SC ; Start 09/25/16 at 11:00 Hydralazine HCl (Apresoline) 100 mg Q8 PO Last administered on 09/25/16 13:54; Admin Dose 100 MG; Start 09/25/16 at 14:00 JEFF FRANK MD Sep 25, 2016 21:46
[2016-09-25] MEDS: ACETAMINOPHEN 650MG/20.3ML CUP PO PRN (22:12)
[2016-09-26] VITALS (24 sets, daily range): BP systolic 124–186; BP diastolic 41–120; PULSE 63–98; RESP 17–26
[2016-09-26] MEDS: morphine 2 MG INJ IV PRN (00:37)
[2016-09-26] MEDS: INSULIN ASPART [NOVOLOG] 3 ML PEN SC SCH ×6 (01:04→20:51)
[2016-09-26] MEDS: HALOPERIDOL 5 MG INJ IM PRN (01:23)
[2016-09-26] MEDS: hydrALAzine 20 MG INJ IV PRN ×4 (03:34→20:56)
[2016-09-26 05:48] LABS: ADD SCAN DIFF NO
[2016-09-26 06:01] LABS: BASOPHIL # 0.1 10^3/ul (0.0-0.1); BASOPHILS % 1.1 % (0.0-2.0); EOSINOPHILS # 0.3 10^3/ul (0.0-0.5); EOSINOPHILS % 3.5 % (0.0-7.0); HEMATOCRIT 36.7 % (37.0-47.0); HEMOGLOBIN 11.7 g/dl (12.0-16.0); LYMPHOCYTES # 2.3 10^3/ul (0.8-2.9); LYMPHOCYTES % 23.7 % (15.0-51.0); MEAN CORPUSCULAR HGB CONC 31.9 g/dl (32.0-37.0); MEAN CORPUSCULAR VOLUME 91.1 fl (82.0-101.0); MEAN PLATELET VOLUME 12.2 fl (7.4-10.4); MONOCYTE # 1.1 10^3/ul (0.3-0.9); MONOCYTES % 10.9 % (0.0-11.0); NEUTROPHILS % 60.6 % (39.0-77.0); PLATELET COUNT 352 10^3/UL (140-415); RED BLOOD COUNT 4.03 10^6/ul (4.20-5.40); RED CELL DISTRIBUTION WIDTH 16.1 % (11.5-14.5); WHITE BLOOD COUNT 9.8 10^3/ul (4.8-10.8)
[2016-09-26 06:56] LABS: ALBUMIN 2.6 g/dl (3.3-4.9); POTASSIUM 3.6 mmol/L (3.5-5.1)
[2016-09-26 06:59] LABS: CREATININE 1.14 mg/dl (0.44-1.00)
[2016-09-26 07:00] LABS: CALCIUM 8.6 mg/dl (8.4-10.2)
[2016-09-26] MEDS: ASPIRIN 81 MG TAB PO SCH (08:35)
[2016-09-26] MEDS: DOCUSATE SODIUM 10 MG/ML (10ML CUP) PO SCH ×2 (08:35→20:52)
[2016-09-26] MEDS: METOPROLOL 50 MG TAB PO SCH ×2 (08:35→20:53)
[2016-09-26] MEDS: FAMOTIDINE 20 MG INJ IV SCH (08:36)
[2016-09-26] MEDS: FUROSEMIDE 20 MG INJ IV SCH (08:36)
--- NOTE | 2016-09-26 09:47 | PN ---
Date/Time of Note Date/Time of Note DATE: 09/26/16 TIME: 09:42 Assessment/Plan VTE Prophylaxis VTE Prophylaxis Intervention: heparin Lines/Catheters IV Catheter Type (from Nrs): Central Line Urinary Cath still in place: Yes Assessment/Plan Assessment/Plan 1. s/p Septic shock - 2/2 Ecoli UTI /Bacteremia - much improved 2. Acute renal failure r/o CKD- 2/2 to ATN from sepsis - improved 3. Type II DM - controlled on SSI 4. Metabolic / Lactic acidosis 2/2 #1: resolved 5. Acute Hypercapnic and Hypoxemic Resp failure - s/p self extubation - on BiPAP 6. NSTEMI versus elevated trop - CV monitoring. ECHO = EF 45-50 by echo this admit. 7. Thrombocytopenia likely associated with sepsis vs meds vs mild DIC: HIT antibody negative/ s/p FFP and platelet transfusion - resolved 8. Severe Iron deficiency: + occult test stool. No signs of GI bleeding presently. S/p EGD with gastritis findings only. s/p pRBC transfusion/ and IV iron infusion PLAN: - Plan to transfer to telemetry - ST / PT eval pending /keep montoya till after PT eval - Continue abx per ID - Continue serial labs and monitoring - Will need prompt outpt mgt of her hernia once stable - Closely monitor hgb and platelet count on heprin PROPHYLAXIS: Pepcid / SCDS / heprain CRITICAL CARE TIME: >35 mins Subjective 24 Hr Interval Summary Free Text/Dictation Patient seen and examined. Exam/Review of Systems Vital Signs Vitals Vital Signs Date Time Temp Pulse Resp B/P Pulse Ox O2 Delivery O2 Flow Rate FiO2 09/26/16 07:00 92 23 158/71 96 09/26/16 04:00 97.8 Nasal Cannula 2.0 09/25/16 01:20 30 Intake and Output 09/25/16 09/25/16 09/26/16 15:00 23:00 07:00 Intake Total 370 ml 540 ml 240 ml Output Total 1550 ml 920 ml 600 ml Balance -1180 ml -380 ml -360 ml Exam Constitutional: alert, frail, oriented, No distress Psych: nl mood/affect Head: normocephalic Eyes: PERRL ENMT: No mucosa pink and moist (dry) Neck: non-tender Respiratory: diminished breath sounds, No crackles/rales Cardiovascular: regular rate and rhythm, No murmurs/extra sounds Gastrointestinal: bowel sounds, non-tender, other (klarge umbilical hernia), soft Extremities: edema Neurological: lethargic Results Result Diagram: 09/26/16 0500 09/26/16 0500 Results 24 hrs Laboratory Tests Test 09/25/16 09:48 09/25/16 12:41 09/25/16 16:53 09/25/16 16:54 Bedside Glucose 187 199 64 L 63 L Test 09/25/16 17:07 09/25/16 17:23 09/25/16 17:43 09/25/16 18:04 Bedside Glucose 75 79 94 90 Test 09/25/16 20:53 09/26/16 00:43 09/26/16 04:55 09/26/16 05:00 Bedside Glucose 106 148 117 Albumin 2.6 L Anion Gap 11 Basophils # 0.1 Basophils % 1.1 Blood Urea Nitrogen 30 H Calcium Level 8.6 Carbon Dioxide Level 36 H Chloride Level 105 Creatinine 1.14 H Eosinophils # 0.3 Eosinophils % 3.5 Glucose Level 126 # Hematocrit 36.7 L Hemoglobin 11.7 L Lymphocytes # 2.3 Lymphocytes % 23.7 Mean Corpuscular Hemoglobin 29.0 Mean Corpuscular Hemoglobin Concent 31.9 L Mean Corpuscular Volume 91.1 Mean Platelet Volume 12.2 H Monocytes # 1.1 H Monocytes % 10.9 Neutrophils # 6.0 Neutrophils % 60.6 Nucleated Red Blood Cells # 0.0 Nucleated Red Blood Cells % 0.0 Phosphorus Level 4.0 Platelet Count 352 Potassium Level 3.6 Red Blood Count 4.03 L Red Cell Distribution Width 16.1 H Sodium Level 148 H White Blood Count 9.8 Test 09/26/16 08:27 Bedside Glucose 154 Medications Medications Current Medications Ondansetron HCl (Zofran Inj) 4 mg Q6H PRN IV NAUSEA AND/OR VOMITING Last administered on 09/10/16 23:03; Admin Dose 4 MG; Start 09/09/16 at 20:00 Nitroglycerin (Nitroglycerin (Sl Tab) 0.4 Mg) 1 tab Q5M PRN SL CHEST PAIN; Start 09/09/16 at 20:00 Acetaminophen (Tylenol Liquid) 650 mg Q6H PRN PO PAIN LEVEL 1-3 OR FEVER Last administered on 09/25/16 22:12; Admin Dose 650 MG; Start 09/09/16 at 20:00 Morphine Sulfate (morphine) 2 mg Q4H PRN IV PAIN LEVEL 7-10 Last administered on 09/26/16 00:37; Admin Dose 2 MG; Start 09/09/16 at 20:00 Lorazepam (Ativan) 1 mg Q2H PRN IV ANXIETY Last administered on 09/22/16 16:46 ; Admin Dose 1 MG; Start 09/09/16 at 20:00 Glucose (Glutose) 15 gm Q15M PRN PO DECREASED GLUCOSE; Start 09/09/16 at 20:30 Glucose (Glutose) 22.5 gm Q15M PRN PO DECREASED GLUCOSE; Start 09/09/16 at 20: 30 Dextrose (D50w Syringe) 25 ml Q15M PRN IV DECREASED GLUCOSE Last administered on 09/25/16 17:40; Admin Dose 25 ML; Start 09/09/16 at 20:30 Dextrose (D50w Syringe) 50 ml Q15M PRN IV DECREASED GLUCOSE; Start 09/09/16 at 20:30 Glucagon (Glucagen) 1 mg Q15M PRN IM DECREASED GLUCOSE; Start 09/09/16 at 20:30 Glucose (Glutose) 15 gm Q15M PRN BUCCAL DECREASED GLUCOSE; Start 09/09/16 at 20 :30 Famotidine (Pepcid Iv) 20 mg DAILY IV Last administered on 09/26/16 08:36; Admin Dose 20 MG; Start 09/10/16 at 09:00 Aspirin (Aspirin) 81 mg DAILY PO Last administered on 09/26/16 08:35; Admin Dose 81 MG; Start 09/12/16 at 09:00 Insulin Aspart (Novolog Insulin Pen) NOVOLOG *MODERATE* ALGORI... Q4 SC Last administered on 09/26/16 08:50; Admin Dose 2 UNIT; Start 09/13/16 at 13:00 Hydralazine HCl (Apresoline) 10 mg Q4H PRN IV SBP >160 Last administered on 09/26 03:34; Admin Dose 10 MG; Start 09/17/16 at 07:00 Docusate Sodium (Colace Liquid Cup) 100 mg Q12 PO Last administered on 08:35; Admin Dose 100 MG; Start 09/17/16 at 09:00 Metoprolol Tartrate (Lopressor) 50 mg BID PO Last administered on 09/26/16 08: 35; Admin Dose 50 MG; Start 09/19/16 at 21:00 Haloperidol (Haldol) 2 mg Q4H PRN IM AGITATION Last administered on 09/26/16 01 :23; Admin Dose 2 MG; Start 09/20/16 at 05:30 Furosemide (Lasix) 20 mg DAILY IV Last administered on 09/26/16 08:36; Admin Dose 20 MG; Start 09/23/16 at 13:30; Stop 09/26/16 at 13:29 Heparin Sodium (Porcine) (Heparin (5000 Units/0.5 ml)) 5,000 unit BID SC ; Start 09/25/16 at 11:00 Hydralazine HCl (Apresoline) 100 mg Q8 PO Last administered on 09/26/16 06:14; Admin Dose 100 MG; Start 09/25/16 at 14:00 EMILIANO HENDRICKS Sep 26, 2016 09:47
--- NOTE | 2016-09-26 10:05 | RADRPT ---
PROCEDURE: XR Chest 1 View. CLINICAL INDICATION: Shortness of breath TECHNIQUE: AP view of the chest were obtained. COMPARISON: September 24, 2016 FINDINGS: The heart size is within normal limits. Calcified atherosclerosis is noted in the aorta. Nasogastri c tube is stable and appears in grossly appropriate location. Right-sided central line is unchanged . The lungs are hyperexpanded. Left lower lung infiltrates combined small pleural effusion are sta ble. Right lower lung infiltrates and small right pleural effusion have mildly increased The osseou s structures are osteopenic, but appear grossly intact. IMPRESSION: Calcified atherosclerosis in the aorta. Mild interval increase in right lower lung infiltrates combined with small pleural effusion. Stable left lower lobe infiltrates, combined small pleural effusion. Hyperexpanded lungs. RPTAT: AA .Praveen Martell MD, Date Time Electronically viewed and signed by .Praveen Martell MD, on 09/26/2016 10:04 .P/
--- NOTE | 2016-09-26 10:48 | PN ---
DATE: 09/26/2016 SUBJECTIVE: The patient ____. She remains stable, awake, alert, on nasal cannula oxygen and nasoga stric tube in place. PHYSICAL EXAMINATION: VITAL SIGNS: Temperature 98, pulse 80, blood pressure 158/71, O2 saturation 96% on 2 L nasal cannul a. NECK: Supple. No JVD or lymphadenopathy. CARDIAC: S1, S2, no added sounds or murmurs. CHEST: Diminished air entry bilaterally. ABDOMEN: Soft, nontender. No guarding or rebound. EXTREMITIES: No cyanosis, clubbing, edema. NEUROLOGIC: Generalized weakness. LABORATORY DATA: White count 9.8, hemoglobin 11.7, platelets of 352. BUN 30, creatinine 1.14. IMAGING: Chest x-ray was reviewed and shows patchy interstitial edema. IMPRESSION AND PLAN: 1. Status post hypoxemic respiratory failure. 2. Improving thrombocytopenia. 3. Acute renal failure. 4. Type 2 diabetes. 5. Lactic acidosis. 6. Significant weakness with possible aspiration component. The patient will require: 1. Speech therapy evaluation. 2. PT evaluation. 3. Encourage out of bed. 4. Transfer to telemetry. 5. DVT and GI prophylaxis. Dictated By: PEDRO YORK/ARLENE Conf#: [id number] DID#: [id number]
--- NOTE | 2016-09-26 12:12 | CONS ---
Date/Time of Note Date/Time of Note DATE: 09/26/16 TIME: 12:08 Assessment/Plan Assessment/Plan Chief Complaint/Hosp Course IMPRESSION: 1. Positive troponin, assess significance, assess for true acute coronary syndrome.-now downtrending in setting ongoing renal failure 2. Hypotension, shock state. Rule out cardiac etiology-EF 45-50 by echo this admit-improved off of pressors 3. Abnormal electrocardiogram, assess for acute coronary syndrome. 4. Respiratory failure s/p extubation-improving off of BIPAP currently 5. Leukocytosis. 6. Anemia. 7. Thrombocytopenia-improved 8. Renal failure-ongoing/stable to slightly improved 9. Bacteremia with gram negative rods. 10.CHF-systolic and diastolic acute EF 45-50 by echo this admit REcc: -Tele -continue abx's and f/u ca data -Continue asa -Continue BB/hydralazine with overall improved BP control -Follow volume status closely on gentle lasix diuresis -Continue PRN BIPAP resp support as necessary only -Continue bronchodilators Problems: Consultation Date/Type/Reason Admit Date/Time Sep 09, 2016 at 19:47 Initial Consult Date 09/11/16 Type of Consultation: Cardiology Reason for Consultation positive troponin Referring Provider: EMILIANO HENDRICKS Exam/Review of Systems Vital Signs Vitals Vital Signs Date Time Temp Pulse Resp B/P Pulse Ox O2 Delivery O2 Flow Rate FiO2 09/26/16 08:00 95 09/26/16 07:00 23 158/71 96 09/26/16 04:00 97.8 Nasal Cannula 2.0 09/25/16 01:20 30 Intake and Output 09/25/16 09/25/16 09/26/16 15:00 23:00 07:00 Intake Total 370 ml 540 ml 240 ml Output Total 1550 ml 920 ml 600 ml Balance -1180 ml -380 ml -360 ml Exam Review of Systems: CONSTITUTIONAL: No fevers, chills. PULMONARY: No sob CARDIOVASCULAR: No chest pain/palpitations GASTROINTESTINAL: No nausea/vomiting. GENITOURINARY: No hematuria/dysuria. MUSCULOSKELETAL: No myagias/arthalgias. PSYCHIATRIC: The patient denies depression. NEUROLOGIC: No weakness Constitutional: alert, oriented ENMT: mucosa pink and moist Neck: jvd (9 cm water), supple Respiratory: diminished breath sounds (at bases/B) Cardiovascular: regular rate and rhythm Gastrointestinal: non-tender, soft Musculoskeletal: muscle tone (normal) Extremities: edema (trace/B) Neurological: other (No focal deficits) Results Result Diagram: 09/26/16 0500 09/26/16 0500 Results 24 hrs Laboratory Tests Test 09/25/16 12:41 09/25/16 16:53 09/25/16 16:54 09/25/16 17:07 Bedside Glucose 199 64 L 63 L 75 Test 09/25/16 17:23 09/25/16 17:43 09/25/16 18:04 09/25/16 20:53 Bedside Glucose 79 94 90 106 Test 09/26/16 00:43 09/26/16 04:55 09/26/16 05:00 09/26/16 08:27 Bedside Glucose 148 117 154 Albumin 2.6 L Anion Gap 11 Basophils # 0.1 Basophils % 1.1 Blood Urea Nitrogen 30 H Calcium Level 8.6 Carbon Dioxide Level 36 H Chloride Level 105 Creatinine 1.14 H Eosinophils # 0.3 Eosinophils % 3.5 Glucose Level 126 # Hematocrit 36.7 L Hemoglobin 11.7 L Lymphocytes # 2.3 Lymphocytes % 23.7 Mean Corpuscular Hemoglobin 29.0 Mean Corpuscular Hemoglobin Concent 31.9 L Mean Corpuscular Volume 91.1 Mean Platelet Volume 12.2 H Monocytes # 1.1 H Monocytes % 10.9 Neutrophils # 6.0 Neutrophils % 60.6 Nucleated Red Blood Cells # 0.0 Nucleated Red Blood Cells % 0.0 Phosphorus Level 4.0 Platelet Count 352 Potassium Level 3.6 Red Blood Count 4.03 L Red Cell Distribution Width 16.1 H Sodium Level 148 H White Blood Count 9.8 Medications Medications Current Medications Ondansetron HCl (Zofran Inj) 4 mg Q6H PRN IV NAUSEA AND/OR VOMITING Last administered on 09/10/16 23:03; Admin Dose 4 MG; Start 09/09/16 at 20:00 Nitroglycerin (Nitroglycerin (Sl Tab) 0.4 Mg) 1 tab Q5M PRN SL CHEST PAIN; Start 09/09/16 at 20:00 Acetaminophen (Tylenol Liquid) 650 mg Q6H PRN PO PAIN LEVEL 1-3 OR FEVER Last administered on 09/25/16 22:12; Admin Dose 650 MG; Start 09/09/16 at 20:00 Morphine Sulfate (morphine) 2 mg Q4H PRN IV PAIN LEVEL 7-10 Last administered on 09/26/16 00:37; Admin Dose 2 MG; Start 09/09/16 at 20:00 Lorazepam (Ativan) 1 mg Q2H PRN IV ANXIETY Last administered on 09/22/16 16:46 ; Admin Dose 1 MG; Start 09/09/16 at 20:00 Glucose (Glutose) 15 gm Q15M PRN PO DECREASED GLUCOSE; Start 09/09/16 at 20:30 Glucose (Glutose) 22.5 gm Q15M PRN PO DECREASED GLUCOSE; Start 09/09/16 at 20: 30 Dextrose (D50w Syringe) 25 ml Q15M PRN IV DECREASED GLUCOSE Last administered on 09/25/16 17:40; Admin Dose 25 ML; Start 09/09/16 at 20:30 Dextrose (D50w Syringe) 50 ml Q15M PRN IV DECREASED GLUCOSE; Start 09/09/16 at 20:30 Glucagon (Glucagen) 1 mg Q15M PRN IM DECREASED GLUCOSE; Start 09/09/16 at 20:30 Glucose (Glutose) 15 gm Q15M PRN BUCCAL DECREASED GLUCOSE; Start 09/09/16 at 20 :30 Famotidine (Pepcid Iv) 20 mg DAILY IV Last administered on 09/26/16 08:36; Admin Dose 20 MG; Start 09/10/16 at 09:00 Aspirin (Aspirin) 81 mg DAILY PO Last administered on 09/26/16 08:35; Admin Dose 81 MG; Start 09/12/16 at 09:00 Insulin Aspart (Novolog Insulin Pen) NOVOLOG *MODERATE* ALGORI... Q4 SC Last administered on 09/26/16 08:50; Admin Dose 2 UNIT; Start 09/13/16 at 13:00 Hydralazine HCl (Apresoline) 10 mg Q4H PRN IV SBP >160 Last administered on 09/26 03:34; Admin Dose 10 MG; Start 09/17/16 at 07:00 Docusate Sodium (Colace Liquid Cup) 100 mg Q12 PO Last administered on 08:35; Admin Dose 100 MG; Start 09/17/16 at 09:00 Metoprolol Tartrate (Lopressor) 50 mg BID PO Last administered on 09/26/16 08: 35; Admin Dose 50 MG; Start 09/19/16 at 21:00 Furosemide (Lasix) 20 mg DAILY IV Last administered on 09/26/16 08:36; Admin Dose 20 MG; Start 09/23/16 at 13:30; Stop 09/26/16 at 13:29 Heparin Sodium (Porcine) (Heparin (5000 Units/0.5 ml)) 5,000 unit BID SC ; Start 09/25/16 at 11:00 Hydralazine HCl (Apresoline) 100 mg Q8 PO Last administered on 09/26/16 06:14; Admin Dose 100 MG; Start 09/25/16 at 14:00 ALLISON CONTRERAS Sep 26, 2016 12:11
[2016-09-26] MEDS: HEPARIN 5,000 UNIT/0.5 ML SYG SC SCH ×2 (12:30→20:53)
--- NOTE | 2016-09-26 12:40 | CONS ---
Date/Time of Note Date/Time of Note DATE: 09/26/16 TIME: 12:39 Assessment/Plan Assessment/Plan Chief Complaint/Hosp Course SUBJECTIVE: No acute events. The patient is awake, comfortable on nasal cannula. No fevers. INDWELLINGS: NG tube, Alaniz catheter, right IJ triple-lumen catheter. PHYSICAL EXAMINATION: GENERAL: Fragile, elderly woman who is awake, in no distress. HEENT: Head atraumatic, normocephalic. Sclerae anicteric. Buccal mucosa dry. NECK: Supple. CHEST: Rise symmetrical. Breath sounds diminished to bases. HEART: S1, S2. ABDOMEN: Soft. Bowel tones present. EXTREMITIES: Without cyanosis. ASSESSMENT: 1. Status post severe sepsis with shock. 2. Status post respiratory failure. 3. Status post Escherichia coli urinary tract infection with bacteremia. 4. Renal failure, improving. 5. Anemia. 6. Resolving encephalopathy. PLAN: The patient remains stable off antibiotics. Continue present care, aspiration precautions. Follow recommendations of consultants and panculture p.r.n. DW staff DW family at bedside Problems: Consultation Date/Type/Reason Admit Date/Time Sep 09, 2016 at 19:47 Initial Consult Date 09/13/16 Type of Consultation: ID Referring Provider: EMILIANO HENDRICKS Exam/Review of Systems Vital Signs Vitals Vital Signs Date Time Temp Pulse Resp B/P Pulse Ox O2 Delivery O2 Flow Rate FiO2 09/26/16 08:00 95 09/26/16 07:00 23 158/71 96 09/26/16 04:00 97.8 Nasal Cannula 2.0 09/25/16 01:20 30 Intake and Output 09/25/16 09/25/16 09/26/16 15:00 23:00 07:00 Intake Total 370 ml 540 ml 240 ml Output Total 1550 ml 920 ml 600 ml Balance -1180 ml -380 ml -360 ml Results Result Diagram: 09/26/16 0500 09/26/16 0500 Results 24 hrs Laboratory Tests Test 09/25/16 12:41 09/25/16 16:53 09/25/16 16:54 09/25/16 17:07 Bedside Glucose 199 64 L 63 L 75 Test 09/25/16 17:23 09/25/16 17:43 09/25/16 18:04 09/25/16 20:53 Bedside Glucose 79 94 90 106 Test 09/26/16 00:43 09/26/16 04:55 09/26/16 05:00 09/26/16 08:27 Bedside Glucose 148 117 154 Albumin 2.6 L Anion Gap 11 Basophils # 0.1 Basophils % 1.1 Blood Urea Nitrogen 30 H Calcium Level 8.6 Carbon Dioxide Level 36 H Chloride Level 105 Creatinine 1.14 H Eosinophils # 0.3 Eosinophils % 3.5 Glucose Level 126 # Hematocrit 36.7 L Hemoglobin 11.7 L Lymphocytes # 2.3 Lymphocytes % 23.7 Mean Corpuscular Hemoglobin 29.0 Mean Corpuscular Hemoglobin Concent 31.9 L Mean Corpuscular Volume 91.1 Mean Platelet Volume 12.2 H Monocytes # 1.1 H Monocytes % 10.9 Neutrophils # 6.0 Neutrophils % 60.6 Nucleated Red Blood Cells # 0.0 Nucleated Red Blood Cells % 0.0 Phosphorus Level 4.0 Platelet Count 352 Potassium Level 3.6 Red Blood Count 4.03 L Red Cell Distribution Width 16.1 H Sodium Level 148 H White Blood Count 9.8 Medications Medications Current Medications Ondansetron HCl (Zofran Inj) 4 mg Q6H PRN IV NAUSEA AND/OR VOMITING Last administered on 09/10/16 23:03; Admin Dose 4 MG; Start 09/09/16 at 20:00 Nitroglycerin (Nitroglycerin (Sl Tab) 0.4 Mg) 1 tab Q5M PRN SL CHEST PAIN; Start 09/09/16 at 20:00 Acetaminophen (Tylenol Liquid) 650 mg Q6H PRN PO PAIN LEVEL 1-3 OR FEVER Last administered on 09/25/16 22:12; Admin Dose 650 MG; Start 09/09/16 at 20:00 Morphine Sulfate (morphine) 2 mg Q4H PRN IV PAIN LEVEL 7-10 Last administered on 09/26/16 00:37; Admin Dose 2 MG; Start 09/09/16 at 20:00 Lorazepam (Ativan) 1 mg Q2H PRN IV ANXIETY Last administered on 09/22/16 16:46 ; Admin Dose 1 MG; Start 09/09/16 at 20:00 Glucose (Glutose) 15 gm Q15M PRN PO DECREASED GLUCOSE; Start 09/09/16 at 20:30 Glucose (Glutose) 22.5 gm Q15M PRN PO DECREASED GLUCOSE; Start 09/09/16 at 20: 30 Dextrose (D50w Syringe) 25 ml Q15M PRN IV DECREASED GLUCOSE Last administered on 09/25/16 17:40; Admin Dose 25 ML; Start 09/09/16 at 20:30 Dextrose (D50w Syringe) 50 ml Q15M PRN IV DECREASED GLUCOSE; Start 09/09/16 at 20:30 Glucagon (Glucagen) 1 mg Q15M PRN IM DECREASED GLUCOSE; Start 09/09/16 at 20:30 Glucose (Glutose) 15 gm Q15M PRN BUCCAL DECREASED GLUCOSE; Start 09/09/16 at 20 :30 Famotidine (Pepcid Iv) 20 mg DAILY IV Last administered on 09/26/16 08:36; Admin Dose 20 MG; Start 09/10/16 at 09:00 Aspirin (Aspirin) 81 mg DAILY PO Last administered on 09/26/16 08:35; Admin Dose 81 MG; Start 09/12/16 at 09:00 Insulin Aspart (Novolog Insulin Pen) NOVOLOG *MODERATE* ALGORI... Q4 SC Last administered on 09/26/16 08:50; Admin Dose 2 UNIT; Start 09/13/16 at 13:00 Hydralazine HCl (Apresoline) 10 mg Q4H PRN IV SBP >160 Last administered on 09/26 12:27; Admin Dose 10 MG; Start 09/17/16 at 07:00 Docusate Sodium (Colace Liquid Cup) 100 mg Q12 PO Last administered on 08:35; Admin Dose 100 MG; Start 09/17/16 at 09:00 Metoprolol Tartrate (Lopressor) 50 mg BID PO Last administered on 09/26/16 08: 35; Admin Dose 50 MG; Start 09/19/16 at 21:00 Furosemide (Lasix) 20 mg DAILY IV Last administered on 09/26/16 08:36; Admin Dose 20 MG; Start 09/23/16 at 13:30; Stop 09/26/16 at 13:29 Heparin Sodium (Porcine) (Heparin (5000 Units/0.5 ml)) 5,000 unit BID SC Last administered on 09/26/16 12:30; Admin Dose 5,000 UNIT; Start 09/25/16 at 11:00 Hydralazine HCl (Apresoline) 100 mg Q8 PO Last administered on 09/26/16t 06:14; Admin Dose 100 MG; Start 09/25/16 at 14:00 CHLOE MONROY NP Sep 26, 2016 12:39
--- NOTE | 2016-09-26 16:59 | CONS ---
Date/Time of Note Date/Time of Note DATE: 09/26/16 TIME: 16:57 Assessment/Plan Assessment/Plan Chief Complaint/Hosp Course IMPRESSION: 1. Patient has SHALOM BETTER 2. S/P ATN 3. S/P vdrf NOW ON BIPAP 4.. The patient has Escherichia coli bacteremia, E. coli urinary tract infection. 5 hypernatremia better 6 pleural effusion on lasix 7 hypernatremia po water PLAN CK BMP Problems: Consultation Date/Type/Reason Admit Date/Time Sep 09, 2016 at 19:47 Initial Consult Date 09/11/16 Type of Consultation: renal Referring Provider: EMILIANO HENDRICKS 24 HR Interval Summary Constitutional: other (sob better) Exam/Review of Systems Vital Signs Vitals Vital Signs Date Time Temp Pulse Resp B/P Pulse Ox O2 Delivery O2 Flow Rate FiO2 09/26/16 16:25 2.0 09/26/16 16:00 98.0 72 19 152/54 100 09/26/16 12:55 Nasal Cannula 09/25/16 01:20 30 Intake and Output 09/25/16 09/25/16 09/26/16 14:59 22:59 06:59 Intake Total 370 ml 540 ml 240 ml Output Total 1600 ml 895 ml 600 ml Balance -1230 ml -355 ml -360 ml Exam Respiratory: diminished breath sounds Cardiovascular: regular rate and rhythm Gastrointestinal: soft Extremities: edema (+) Results Result Diagram: 09/26/16 0500 09/26/16 0500 Results 24 hrs Laboratory Tests Test 09/25/16 17:07 09/25/16 17:23 09/25/16 17:43 09/25/16 18:04 Bedside Glucose 75 79 94 90 Test 09/25/16 20:53 09/26/16 00:43 09/26/16 04:55 09/26/16 05:00 Bedside Glucose 106 148 117 Albumin 2.6 L Anion Gap 11 Basophils # 0.1 Basophils % 1.1 Blood Urea Nitrogen 30 H Calcium Level 8.6 Carbon Dioxide Level 36 H Chloride Level 105 Creatinine 1.14 H Eosinophils # 0.3 Eosinophils % 3.5 Glucose Level 126 # Hematocrit 36.7 L Hemoglobin 11.7 L Lymphocytes # 2.3 Lymphocytes % 23.7 Mean Corpuscular Hemoglobin 29.0 Mean Corpuscular Hemoglobin Concent 31.9 L Mean Corpuscular Volume 91.1 Mean Platelet Volume 12.2 H Monocytes # 1.1 H Monocytes % 10.9 Neutrophils # 6.0 Neutrophils % 60.6 Nucleated Red Blood Cells # 0.0 Nucleated Red Blood Cells % 0.0 Phosphorus Level 4.0 Platelet Count 352 Potassium Level 3.6 Red Blood Count 4.03 L Red Cell Distribution Width 16.1 H Sodium Level 148 H White Blood Count 9.8 Test 09/26/16 08:27 09/26/16 13:20 Bedside Glucose 154 239 H Medications Medications Current Medications Ondansetron HCl (Zofran Inj) 4 mg Q6H PRN IV NAUSEA AND/OR VOMITING Last administered on 09/10/16 23:03; Admin Dose 4 MG; Start 09/09/16 at 20:00 Nitroglycerin (Nitroglycerin (Sl Tab) 0.4 Mg) 1 tab Q5M PRN SL CHEST PAIN; Start 09/09/16 at 20:00 Acetaminophen (Tylenol Liquid) 650 mg Q6H PRN PO PAIN LEVEL 1-3 OR FEVER Last administered on 09/25/16 22:12; Admin Dose 650 MG; Start 09/09/16 at 20:00 Morphine Sulfate (morphine) 2 mg Q4H PRN IV PAIN LEVEL 7-10 Last administered on 09/26/16 00:37; Admin Dose 2 MG; Start 09/09/16 at 20:00 Lorazepam (Ativan) 1 mg Q2H PRN IV ANXIETY Last administered on 09/22/16 16:46 ; Admin Dose 1 MG; Start 09/09/16 at 20:00 Glucose (Glutose) 15 gm Q15M PRN PO DECREASED GLUCOSE; Start 09/09/16 at 20:30 Glucose (Glutose) 22.5 gm Q15M PRN PO DECREASED GLUCOSE; Start 09/09/16 at 20: 30 Dextrose (D50w Syringe) 25 ml Q15M PRN IV DECREASED GLUCOSE Last administered on 09/25/16 17:40; Admin Dose 25 ML; Start 09/09/16 at 20:30 Dextrose (D50w Syringe) 50 ml Q15M PRN IV DECREASED GLUCOSE; Start 09/09/16 at 20:30 Glucagon (Glucagen) 1 mg Q15M PRN IM DECREASED GLUCOSE; Start 09/09/16 at 20:30 Glucose (Glutose) 15 gm Q15M PRN BUCCAL DECREASED GLUCOSE; Start 09/09/16 at 20 :30 Famotidine (Pepcid Iv) 20 mg DAILY IV Last administered on 09/26/16 08:36; Admin Dose 20 MG; Start 09/10/16 at 09:00 Aspirin (Aspirin) 81 mg DAILY PO Last administered on 09/26/16 08:35; Admin Dose 81 MG; Start 09/12/16 at 09:00 Insulin Aspart (Novolog Insulin Pen) NOVOLOG *MODERATE* ALGORI... Q4 SC Last administered on 09/26/16 13:26; Admin Dose 6 UNIT; Start 09/13/16 at 13:00 Hydralazine HCl (Apresoline) 10 mg Q4H PRN IV SBP >160 Last administered on 09/26 12:27; Admin Dose 10 MG; Start 09/17/16 at 07:00 Docusate Sodium (Colace Liquid Cup) 100 mg Q12 PO Last administered on 08:35; Admin Dose 100 MG; Start 09/17/16 at 09:00 Metoprolol Tartrate (Lopressor) 50 mg BID PO Last administered on 09/26/16 08: 35; Admin Dose 50 MG; Start 09/19/16 at 21:00 Heparin Sodium (Porcine) (Heparin (5000 Units/0.5 ml)) 5,000 unit BID SC Last administered on 09/26/16 12:30; Admin Dose 5,000 UNIT; Start 09/25/16 at 11:00 Hydralazine HCl (Apresoline) 100 mg Q8 PO Last administered on 09/26/16 14:37; Admin Dose 100 MG; Start 09/25/16 at 14:00 Insulin Glargine (Lantus) 10 unit DAILY@08 SC ; Start 09/26/16 at 16:00 QUITA SCHOFIELD MD Sep 26, 2016 16:59
[2016-09-26] MEDS: INSULIN GLARGINE [LANtus] 3 ML PEN SC SCH (17:12)
[2016-09-26] MEDS: ACETAMINOPHEN 650MG/20.3ML CUP PO PRN (18:37)
--- NOTE | 2016-09-26 22:43 | CONS ---
Date/Time of Note Date/Time of Note DATE: 09/26/16 TIME: 22:43 Assessment/Plan Assessment/Plan Chief Complaint/Hosp Course IMPRESSION: thrombocytopenia in pt with severe sepsis, exposed to multiple meds with pos thrombocytopenic effect, including VANCO, ZOSYN, HEPARIN,CEFAZOLIN- RESOLVED NO EVIDENCE DIC cont to monitor blood count closely transfuse if [place] less [place] [id number], considering severe sepsis HIPA- NEG PLATELET COUNT IMPROVING Leukocytosis. REACTIVE MONITOR IMPROVING Anemia. C/W ACD MONITOR BLOOD COUNT CLOSELY TRANSFUSE NEEDED Severe Sepsis with septic shock 2/2 Ecoli UTI /Bacteremia Acute renal failure - 2/2 to ATN from sepsis Type II DM - Hyperglycemic on D5W Metabolic / Lactic acidosis 2/2 #1 Acute resp failure now ventilator dependent NSTEMI versus demand ischemia Positive troponin, assess significance, assess for true acute coronary syndrome. Metabolic acidosis respiratory failure, vent dependent incomplete database Thank you for allowing me to take part in the care of this patient. I will continue to follow along very closely with you. Further recommendations will be made as the patient progresses through her inpatient hospital clinical course. Problems: Consultation Date/Type/Reason Admit Date/Time Sep 09, 2016 at 19:47 Initial Consult Date 09/13/16 Type of Consultation: hemeon Referring Provider: EMILIANO HENDRICKS 24 HR Interval Summary Free Text/Dictation IMPROVING Exam/Review of Systems Vital Signs Vitals Vital Signs Date Time Temp Pulse Resp B/P Pulse Ox O2 Delivery O2 Flow Rate FiO2 09/26/16 20:27 74 09/26/16 16:25 2.0 09/26/16 16:00 98.0 19 152/54 100 09/26/16 12:55 Nasal Cannula 09/25/16 01:20 30 Intake and Output 09/25/16 09/25/16 09/26/16 15:00 23:00 07:00 Intake Total 370 ml 540 ml 240 ml Output Total 1550 ml 920 ml 600 ml Balance -1180 ml -380 ml -360 ml Exam Constitutional: alert, frail, oriented, No distress Psych: nl mood/affect Head: normocephalic Eyes: PERRL ENMT: No mucosa pink and moist (dry) Neck: non-tender Respiratory: diminished breath sounds, No crackles/rales Cardiovascular: regular rate and rhythm, No murmurs/extra sounds Gastrointestinal: bowel sounds, non-tender, other (klarge umbilical hernia), soft Extremities: edema Neurological: lethargic Results Result Diagram: 09/26/16 0500 09/26/16 0500 Results 24 hrs Laboratory Tests Test 09/26/16 00:43 09/26/16 04:55 09/26/16 05:00 09/26/16 08:27 Bedside Glucose 148 117 154 Albumin 2.6 L Anion Gap 11 Basophils # 0.1 Basophils % 1.1 Blood Urea Nitrogen 30 H Calcium Level 8.6 Carbon Dioxide Level 36 H Chloride Level 105 Creatinine 1.14 H Eosinophils # 0.3 Eosinophils % 3.5 Glucose Level 126 # Hematocrit 36.7 L Hemoglobin 11.7 L Lymphocytes # 2.3 Lymphocytes % 23.7 Mean Corpuscular Hemoglobin 29.0 Mean Corpuscular Hemoglobin Concent 31.9 L Mean Corpuscular Volume 91.1 Mean Platelet Volume 12.2 H Monocytes # 1.1 H Monocytes % 10.9 Neutrophils # 6.0 Neutrophils % 60.6 Nucleated Red Blood Cells # 0.0 Nucleated Red Blood Cells % 0.0 Phosphorus Level 4.0 Platelet Count 352 Potassium Level 3.6 Red Blood Count 4.03 L Red Cell Distribution Width 16.1 H Sodium Level 148 H White Blood Count 9.8 Test 09/26/16 13:20 09/26/16 17:14 09/26/16 20:50 Bedside Glucose 239 H 129 90 Medications Medications Current Medications Ondansetron HCl (Zofran Inj) 4 mg Q6H PRN IV NAUSEA AND/OR VOMITING Last administered on 09/10/16 23:03; Admin Dose 4 MG; Start 09/09/16 at 20:00 Nitroglycerin (Nitroglycerin (Sl Tab) 0.4 Mg) 1 tab Q5M PRN SL CHEST PAIN; Start 09/09/16 at 20:00 Acetaminophen (Tylenol Liquid) 650 mg Q6H PRN PO PAIN LEVEL 1-3 OR FEVER Last administered on 09/26/16 18:37; Admin Dose 650 MG; Start 09/09/16 at 20:00 Morphine Sulfate (morphine) 2 mg Q4H PRN IV PAIN LEVEL 7-10 Last administered on 09/26/16 00:37; Admin Dose 2 MG; Start 09/09/16 at 20:00 Lorazepam (Ativan) 1 mg Q2H PRN IV ANXIETY Last administered on 09/22/16 16:46 ; Admin Dose 1 MG; Start 09/09/16 at 20:00 Glucose (Glutose) 15 gm Q15M PRN PO DECREASED GLUCOSE; Start 09/09/16 at 20:30 Glucose (Glutose) 22.5 gm Q15M PRN PO DECREASED GLUCOSE; Start 09/09/16 at 20: 30 Dextrose (D50w Syringe) 25 ml Q15M PRN IV DECREASED GLUCOSE Last administered on 09/25/16 17:40; Admin Dose 25 ML; Start 09/09/16 at 20:30 Dextrose (D50w Syringe) 50 ml Q15M PRN IV DECREASED GLUCOSE; Start 09/09/16 at 20:30 Glucagon (Glucagen) 1 mg Q15M PRN IM DECREASED GLUCOSE; Start 09/09/16 at 20:30 Glucose (Glutose) 15 gm Q15M PRN BUCCAL DECREASED GLUCOSE; Start 09/09/16 at 20 :30 Famotidine (Pepcid Iv) 20 mg DAILY IV Last administered on 09/26/16 08:36; Admin Dose 20 MG; Start 09/10/16 at 09:00 Aspirin (Aspirin) 81 mg DAILY PO Last administered on 09/26/16 08:35; Admin Dose 81 MG; Start 09/12/16 at 09:00 Insulin Aspart (Novolog Insulin Pen) NOVOLOG *MODERATE* ALGORI... Q4 SC Last administered on 09/26/16 13:26; Admin Dose 6 UNIT; Start 09/13/16 at 13:00 Hydralazine HCl (Apresoline) 10 mg Q4H PRN IV SBP >160 Last administered on 09/26 20:56; Admin Dose 10 MG; Start 09/17/16 at 07:00 Docusate Sodium (Colace Liquid Cup) 100 mg Q12 PO Last administered on 20:52; Admin Dose 100 MG; Start 09/17/16 at 09:00 Metoprolol Tartrate (Lopressor) 50 mg BID PO Last administered on 09/26/16 20: 53; Admin Dose 50 MG; Start 09/19/16 at 21:00 Heparin Sodium (Porcine) (Heparin (5000 Units/0.5 ml)) 5,000 unit BID SC Last administered on 09/26/16 20:53; Admin Dose 5,000 UNIT; Start 09/25/16 at 11:00 Hydralazine HCl (Apresoline) 100 mg Q8 PO Last administered on 09/26/16 14:37; Admin Dose 100 MG; Start 09/25/16 at 14:00 Insulin Glargine (Lantus) 10 unit DAILY@08 SC Last administered on 09/26/16 17: 12; Admin Dose 10 UNIT; Start 09/26/16 at 16:00 JEFF FRANK MD Sep 26, 2016 22:43
[2016-09-27] VITALS (12 sets, daily range): BP systolic 157–183; BP diastolic 68–84; PULSE 60–89; RESP 15–20
[2016-09-27] MEDS: INSULIN ASPART [NOVOLOG] 3 ML PEN SC SCH ×6 (01:00→21:00)
--- NOTE | 2016-09-27 07:31 | PN ---
DATE: BEDSIDE FAMILY CONFERENCE Conference was done at the patient's bedside. I spoke to her daughter in [place] and we covered her current medical problems, including her cardiopulmonary problems, the fact that she is improving at this time. Her daughter is very nice, very understanding that her mother has been ill, and there i s a chance that she may have another problem. She is hopeful that she is able to eat and to begin t o walk once again and assume her prior prehospitalization level of activity. I will have a more in detail conversation with her tomorrow. Her mother is a FULL CODE. I believe this daughter is very realistic and she knows that her mother may represent to the hospital with another catastrophic medi carole problem from a cardiopulmonary or a sepsis standpoint. Dictated By: SUKHWINDER JONAS MD, LP/ARLENE Conf#: [id number] DID#: [id number]
[2016-09-27] MEDS ORDERED: INSULIN GLARGINE [LANtus] 3 ML PEN SC SCH (08:00)
[2016-09-27 08:11] LABS: ADD SCAN DIFF NO
[2016-09-27 08:31] LABS: POTASSIUM 3.7 mmol/L (3.5-5.1)
[2016-09-27 08:32] LABS: BASOPHIL # 0.1 10^3/ul (0.0-0.1); BASOPHILS % 1.2 % (0.0-2.0); EOSINOPHILS # 0.3 10^3/ul (0.0-0.5); EOSINOPHILS % 2.9 % (0.0-7.0); HEMATOCRIT 37.6 % (37.0-47.0); HEMOGLOBIN 11.9 g/dl (12.0-16.0); LYMPHOCYTES # 2.5 10^3/ul (0.8-2.9); LYMPHOCYTES % 25.3 % (15.0-51.0); MEAN CORPUSCULAR HEMOGLOBIN 28.8 pg (29.0-33.0); MEAN CORPUSCULAR HGB CONC 31.6 g/dl (32.0-37.0); MEAN PLATELET VOLUME 11.8 fl (7.4-10.4); MONOCYTE # 1.1 10^3/ul (0.3-0.9); MONOCYTES % 11.1 % (0.0-11.0); NEUTROPHIL # 5.9 10^3/ul (1.6-7.5); NEUTROPHILS % 59.2 % (39.0-77.0); PLATELET COUNT 384 10^3/UL (140-415); RED BLOOD COUNT 4.13 10^6/ul (4.20-5.40); RED CELL DISTRIBUTION WIDTH 16.1 % (11.5-14.5)
[2016-09-27 08:34] LABS: CREATININE 1.05 mg/dl (0.44-1.00)
[2016-09-27 08:35] LABS: PHOSPHORUS 3.9 mg/dl (2.5-4.9)
[2016-09-27 08:36] LABS: CALCIUM 8.7 mg/dl (8.4-10.2); MAGNESIUM 1.9 mg/dl (1.7-2.5)
[2016-09-27] MEDS: INSULIN GLARGINE [LANtus] 3 ML PEN SC SCH (08:56)
[2016-09-27] MEDS: FAMOTIDINE 20 MG INJ IV SCH (08:57)
[2016-09-27] MEDS: ASPIRIN 81 MG TAB PO SCH (08:57)
[2016-09-27] MEDS: HEPARIN 5,000 UNIT/0.5 ML SYG SC SCH ×2 (08:57→21:26)
[2016-09-27] MEDS: METOPROLOL 50 MG TAB PO SCH ×2 (08:58→21:24)
[2016-09-27] MEDS: DOCUSATE SODIUM 10 MG/ML (10ML CUP) PO SCH ×2 (09:00→21:24)
--- NOTE | 2016-09-27 09:32 | CONS ---
Date/Time of Note Date/Time of Note DATE: 09/27/16 TIME: 09:30 Assessment/Plan Assessment/Plan Chief Complaint/Hosp Course IMPRESSION: thrombocytopenia in pt with severe sepsis, exposed to multiple meds with pos thrombocytopenic effect, including VANCO, ZOSYN, HEPARIN,CEFAZOLIN- RESOLVED NO EVIDENCE DIC cont to monitor blood count closely transfuse if platelet count less than [id number], considering severe sepsis HIPA- NEG PLATELET COUNT IMPROVING, NORMALIZED Leukocytosis. REACTIVE MONITOR IMPROVING Anemia. C/W ACD MONITOR BLOOD COUNT CLOSELY TRANSFUSE NEEDED Severe Sepsis with septic shock 2/2 Ecoli UTI /Bacteremia Acute renal failure - 2/2 to ATN from sepsis Type II DM - Hyperglycemic on D5W Metabolic / Lactic acidosis / #1 Acute resp failure now ventilator dependent NSTEMI versus demand ischemia Positive troponin, assess significance, assess for true acute coronary syndrome. Metabolic acidosis respiratory failure, vent dependent incomplete database Thank you for allowing me to take part in the care of this patient. I will continue to follow along very closely with you. Further recommendations will be made as the patient progresses through her inpatient hospital clinical course. Problems: Consultation Date/Type/Reason Admit Date/Time Sep 09, 2016 at 19:47 Initial Consult Date 09/13/16 [facility]: [facility] Referring Provider: EMILIANO HENDRICKS 24 HR Interval Summary Free Text/Dictation ALL NOTED TRANSFERRED TO [facility] [place] COMFORTABLE ON VT Exam/Review of Systems Vital Signs Vitals Vital Signs Date Time Temp Pulse Resp B/P Pulse Ox O2 Delivery O2 Flow Rate FiO2 09/27/16 08:20 89 09/27/16 07:49 97.9 19 183/79 96 09/26/16 20:00 Nasal Cannula 2.0 09/25/16 01:20 30 Intake and Output 09/26/16 09/26/16 09/27/16 14:59 22:59 06:59 Intake Total 160 ml 80 ml 680 ml Output Total 1130 ml 200 ml 600 ml Balance -970 ml -120 ml 80 ml Exam CONSTITUTIONAL: No fevers, chills. PULMONARY: No sob CARDIOVASCULAR: No chest pain/palpitations GASTROINTESTINAL: No nausea/vomiting. GENITOURINARY: No hematuria/dysuria. MUSCULOSKELETAL: No myagias/arthalgias. PSYCHIATRIC: The patient denies depression. NEUROLOGIC: No weakness Constitutional: alert, oriented ENMT: mucosa pink and moist Neck: jvd (9 cm water), supple Respiratory: diminished breath sounds (at bases/B) Cardiovascular: regular rate and rhythm Gastrointestinal: non-tender, soft Musculoskeletal: muscle tone (normal) Extremities: edema (trace/B) Neurological: other (No focal deficits) Results Result Diagram: 09/27/16 0745 09/27/16 0745 Results 24 hrs Laboratory Tests Test 09/26/16 13:20 09/26/16 17:14 09/26/16 20:50 09/27/16 05:19 Bedside Glucose 239 H 129 90 79 Test 09/27/16 07:45 09/27/16 08:22 Anion Gap 12 Basophils # 0.1 Basophils % 1.2 Blood Urea Nitrogen 27 H Calcium Level 8.7 Carbon Dioxide Level 35 H Chloride Level 103 Creatinine 1.05 H Eosinophils # 0.3 Eosinophils % 2.9 Glucose Level 102 Hematocrit 37.6 Hemoglobin 11.9 L Lymphocytes # 2.5 Lymphocytes % 25.3 Magnesium Level 1.9 Mean Corpuscular Hemoglobin 28.8 L Mean Corpuscular Hemoglobin Concent 31.6 L Mean Corpuscular Volume 91.0 Mean Platelet Volume 11.8 H Monocytes # 1.1 H Monocytes % 11.1 H Neutrophils # 5.9 Neutrophils % 59.2 Nucleated Red Blood Cells # 0.0 Nucleated Red Blood Cells % 0.0 Phosphorus Level 3.9 Platelet Count 384 Potassium Level 3.7 Red Blood Count 4.13 L Red Cell Distribution Width 16.1 H Sodium Level 146 H White Blood Count 10.0 Bedside Glucose 94 Medications Medications Current Medications Ondansetron HCl (Zofran Inj) 4 mg Q6H PRN IV NAUSEA AND/OR VOMITING Last administered on 09/10/16 23:03; Admin Dose 4 MG; Start 09/09/16 at 20:00 Nitroglycerin (Nitroglycerin (Sl Tab) 0.4 Mg) 1 tab Q5M PRN SL CHEST PAIN; Start 09/09/16 at 20:00 Acetaminophen (Tylenol Liquid) 650 mg Q6H PRN PO PAIN LEVEL 1-3 OR FEVER Last administered on 09/26/16 18:37; Admin Dose 650 MG; Start 09/09/16 at 20:00 Morphine Sulfate (morphine) 2 mg Q4H PRN IV PAIN LEVEL 7-10 Last administered on 09/26/16 00:37; Admin Dose 2 MG; Start 09/09/16 at 20:00 Lorazepam (Ativan) 1 mg Q2H PRN IV ANXIETY Last administered on 09/22/16 16:46 ; Admin Dose 1 MG; Start 09/09/16 at 20:00 Glucose (Glutose) 15 gm Q15M PRN PO DECREASED GLUCOSE; Start 09/09/16 at 20:30 Glucose (Glutose) 22.5 gm Q15M PRN PO DECREASED GLUCOSE; Start 09/09/16 at 20: 30 Dextrose (D50w Syringe) 25 ml Q15M PRN IV DECREASED GLUCOSE Last administered on 09/25/16 17:40; Admin Dose 25 ML; Start 09/09/16 at 20:30 Dextrose (D50w Syringe) 50 ml Q15M PRN IV DECREASED GLUCOSE; Start 09/09/16 at 20:30 Glucagon (Glucagen) 1 mg Q15M PRN IM DECREASED GLUCOSE; Start 09/09/16 at 20:30 Glucose (Glutose) 15 gm Q15M PRN BUCCAL DECREASED GLUCOSE; Start 09/09/16 at 20 :30 Famotidine (Pepcid Iv) 20 mg DAILY IV Last administered on 09/27/16 08:57; Admin Dose 20 MG; Start 09/10/16 at 09:00 Aspirin (Aspirin) 81 mg DAILY PO Last administered on 09/27/16 08:57; Admin Dose 81 MG; Start 09/12/16 at 09:00 Insulin Aspart (Novolog Insulin Pen) NOVOLOG *MODERATE* ALGORI... Q4 SC Last administered on 09/26/16 13:26; Admin Dose 6 UNIT; Start 09/13/16 at 13:00 Hydralazine HCl (Apresoline) 10 mg Q4H PRN IV SBP >160 Last administered on 09/26 20:56; Admin Dose 10 MG; Start 09/17/16 at 07:00 Docusate Sodium (Colace Liquid Cup) 100 mg Q12 PO Last administered on 09:00; Admin Dose 100 MG; Start 09/17/16 at 09:00 Metoprolol Tartrate (Lopressor) 50 mg BID PO Last administered on 09/27/16 08: 58; Admin Dose 50 MG; Start 09/19/16 at 21:00 Heparin Sodium (Porcine) (Heparin (5000 Units/0.5 ml)) 5,000 unit BID SC Last administered on 09/27/16 08:57; Admin Dose 5,000 UNIT; Start 09/25/16 at 11:00 Hydralazine HCl (Apresoline) 100 mg Q8 PO Last administered on 09/27/16 06:04 ; Admin Dose 100 MG; Start 09/25/16 at 14:00 Insulin Glargine (Lantus) 10 unit DAILY@08 SC Last administered on 09/27/16 08 :56; Admin Dose 10 UNIT; Start 09/26/16 at 16:00 JEFF FRANK MD Sep 27, 2016 09:32
--- NOTE | 2016-09-27 11:51 | RADRPT ---
PROCEDURE: XR Chest. CLINICAL INDICATION: Shortness of breath. TECHNIQUE: Single frontal view. COMPARISON: 09/26/2016. FINDINGS: The right internal jugular vein catheter and nasogastric tube are in satisfactory and unchanged posi tion. There is air space disease at the lung bases and small bilateral pleural effusions, unchanged . The heart size is normal. There is calcification in the aorta consistent with atherosclerosis. There is no pleural effusion. There is no pneumothorax. IMPRESSION: 1. Nasogastric tube and right IJ catheter in satisfactory position. 2. Bibasilar air space disease and small bilateral pleural effusions, unchanged. 3. Atherosclerosis. RPTAT: QQ .Trevor Harper MD, MD Date Time Electronically viewed and signed by .Trevor Harper MD, MD on 09/27/2016 11:50 .R/
[2016-09-27] MEDS: hydrALAzine 20 MG INJ IV PRN ×2 (11:57→21:35)
--- NOTE | 2016-09-27 12:14 | CONS ---
Date/Time of Note Date/Time of Note DATE: 09/27/16 TIME: 12:13 Assessment/Plan Assessment/Plan Chief Complaint/Hosp Course SUBJECTIVE: No acute events. The patient is awake, comfortable on nasal cannula. No fevers. INDWELLINGS: NG tube, Alaniz catheter, right IJ triple-lumen catheter. PHYSICAL EXAMINATION: GENERAL: Fragile, elderly woman who is awake, in no distress. HEENT: Head atraumatic, normocephalic. Sclerae anicteric. Buccal mucosa dry. NECK: Supple. CHEST: Rise symmetrical. Breath sounds diminished to bases. HEART: S1, S2. ABDOMEN: Soft. Bowel tones present. EXTREMITIES: Without cyanosis, trace ble edema. ASSESSMENT: 1. Status post severe sepsis with shock. 2. Status post respiratory failure. 3. Status post Escherichia coli urinary tract infection with bacteremia. 4. Renal failure, improving. 5. Anemia. 6. Resolving encephalopathy. PLAN: The patient remains stable off antibiotics. Continue present care, aspiration precautions. Follow recommendations of consultants and panculture p.r.n. ? DC TLC staff/family Problems: Consultation Date/Type/Reason Admit Date/Time Sep 09, 2016 at 19:47 Initial Consult Date 09/13/16 Type of Consultation: ID Referring Provider: EMILIANO HENDRICKS Exam/Review of Systems Vital Signs Vitals Vital Signs Date Time Temp Pulse Resp B/P Pulse Ox O2 Delivery O2 Flow Rate FiO2 09/27/16 12:08 60 09/27/16 11:47 98.2 19 177/79 98 09/26/16 20:00 Nasal Cannula 2.0 09/25/16 01:20 30 Intake and Output 09/26/16 09/26/16 09/27/16 15:00 23:00 07:00 Intake Total 160 ml 40 ml 680 ml Output Total 1130 ml 100 ml 600 ml Balance -970 ml -60 ml 80 ml Results Result Diagram: 09/27/16 0745 09/27/16 0745 Results 24 hrs Laboratory Tests Test 09/26/16 13:20 09/26/16 17:14 09/26/16 20:50 09/27/16 05:19 Bedside Glucose 239 H 129 90 79 Test 09/27/16 07:45 09/27/16 08:22 Anion Gap 12 Basophils # 0.1 Basophils % 1.2 Blood Urea Nitrogen 27 H Calcium Level 8.7 Carbon Dioxide Level 35 H Chloride Level 103 Creatinine 1.05 H Eosinophils # 0.3 Eosinophils % 2.9 Glucose Level 102 Hematocrit 37.6 Hemoglobin 11.9 L Lymphocytes # 2.5 Lymphocytes % 25.3 Magnesium Level 1.9 Mean Corpuscular Hemoglobin 28.8 L Mean Corpuscular Hemoglobin Concent 31.6 L Mean Corpuscular Volume 91.0 Mean Platelet Volume 11.8 H Monocytes # 1.1 H Monocytes % 11.1 H Neutrophils # 5.9 Neutrophils % 59.2 Nucleated Red Blood Cells # 0.0 Nucleated Red Blood Cells % 0.0 Phosphorus Level 3.9 Platelet Count 384 Potassium Level 3.7 Red Blood Count 4.13 L Red Cell Distribution Width 16.1 H Sodium Level 146 H White Blood Count 10.0 Bedside Glucose 94 Medications Medications Current Medications Ondansetron HCl (Zofran Inj) 4 mg Q6H PRN IV NAUSEA AND/OR VOMITING Last administered on 09/10/16 23:03; Admin Dose 4 MG; Start 09/09/16 at 20:00 Nitroglycerin (Nitroglycerin (Sl Tab) 0.4 Mg) 1 tab Q5M PRN SL CHEST PAIN; Start 09/09/16 at 20:00 Acetaminophen (Tylenol Liquid) 650 mg Q6H PRN PO PAIN LEVEL 1-3 OR FEVER Last administered on 09/26/16 18:37; Admin Dose 650 MG; Start 09/09/16 at 20:00 Morphine Sulfate (morphine) 2 mg Q4H PRN IV PAIN LEVEL 7-10 Last administered on 09/26/16 00:37; Admin Dose 2 MG; Start 09/09/16 at 20:00 Lorazepam (Ativan) 1 mg Q2H PRN IV ANXIETY Last administered on 09/22/16 16:46 ; Admin Dose 1 MG; Start 09/09/16 at 20:00 Glucose (Glutose) 15 gm Q15M PRN PO DECREASED GLUCOSE; Start 09/09/16 at 20:30 Glucose (Glutose) 22.5 gm Q15M PRN PO DECREASED GLUCOSE; Start 09/09/16 at 20: 30 Dextrose (D50w Syringe) 25 ml Q15M PRN IV DECREASED GLUCOSE Last administered on 09/25/16 17:40; Admin Dose 25 ML; Start 09/09/16 at 20:30 Dextrose (D50w Syringe) 50 ml Q15M PRN IV DECREASED GLUCOSE; Start 09/09/16 at 20:30 Glucagon (Glucagen) 1 mg Q15M PRN IM DECREASED GLUCOSE; Start 09/09/16 at 20:30 Glucose (Glutose) 15 gm Q15M PRN BUCCAL DECREASED GLUCOSE; Start 09/09/16 at 20 :30 Famotidine (Pepcid Iv) 20 mg DAILY IV Last administered on 09/27/16 08:57; Admin Dose 20 MG; Start 09/10/16 at 09:00 Aspirin (Aspirin) 81 mg DAILY PO Last administered on 09/27/16 08:57; Admin Dose 81 MG; Start 09/12/16 at 09:00 Insulin Aspart (Novolog Insulin Pen) NOVOLOG *MODERATE* ALGORI... Q4 SC Last administered on 09/26/16 13:26; Admin Dose 6 UNIT; Start 09/13/16 at 13:00 Hydralazine HCl (Apresoline) 10 mg Q4H PRN IV SBP >160 Last administered on 11:57; Admin Dose 10 MG; Start 09/17/16 at 07:00 Docusate Sodium (Colace Liquid Cup) 100 mg Q12 PO Last administered on 09:00; Admin Dose 100 MG; Start 09/17/16 at 09:00 Metoprolol Tartrate (Lopressor) 50 mg BID PO Last administered on 09/27/16 08: 58; Admin Dose 50 MG; Start 09/19/16 at 21:00 Heparin Sodium (Porcine) (Heparin (5000 Units/0.5 ml)) 5,000 unit BID SC Last administered on 09/27/16 08:57; Admin Dose 5,000 UNIT; Start 09/25/16 at 11:00 Hydralazine HCl (Apresoline) 100 mg Q8 PO Last administered on 09/27/16 06:04 ; Admin Dose 100 MG; Start 09/25/16 at 14:00 Insulin Glargine (Lantus) 10 unit DAILY@08 SC Last administered on 09/27/16 08 :56; Admin Dose 10 UNIT; Start 09/26/16 at 16:00 CHLOE MONROY NP Sep 27, 2016 12:14
--- NOTE | 2016-09-27 13:29 | PN ---
DATE: 09/27/2016 REASON FOR FOLLOWUP: Shortness of breath. SUBJECTIVE: Ms. Juarez remains relatively stable, stil has significant weakness. OBJECTIVE: VITAL SIGNS: Temperature 98, pulse 60, blood pressure 170/79, O2 saturation 96% on 3 L. NECK: Supple. No JVD, no lymphadenopathy. CARDIAC: S1, S2, no added sounds or murmurs. CHEST: Diminished air entry bilaterally. ABDOMEN: Soft, nontender. No guarding or rebound. EXTREMITIES: No cyanosis, clubbing, edema. NEUROLOGIC: Generalized weakness. LABORATORY DATA: White count 10, hemoglobin 11.9, platelets of 384. Chemistry: BUN 27, creatinine 1.05. IMAGING: Chest x-ray was reviewed, shows a nasogastric tube in place, bibasilar infiltrates. IMPRESSION AND PLAN: 1. Hypoxemic respiratory failure. 2. History of thrombocytopenia. 3. History of anemia. 4. Acute renal failure. 5. Resolved lactic acidosis. The patient will require: 1. Continue physical therapy. 2. Speech therapy evaluation. 3. Supplemental O2. 4. DVT and GI prophylaxis. Overall prognosis still remains guarded. Dictated By: PEDRO YORK/ARLENE Conf#: [id number] DID#: [id number]
[2016-09-27] MEDS ORDERED: FUROSEMIDE 20 MG INJ IV ONE (14:00)
--- NOTE | 2016-09-27 14:01 | CONS ---
Date/Time of Note Date/Time of Note DATE: 09/27/16 TIME: 13:58 Assessment/Plan Assessment/Plan Chief Complaint/Hosp Course IMPRESSION: 1. Positive troponin, assess significance, assess for true acute coronary syndrome.-now downtrending in setting ongoing renal failure 2. Hypotension, shock state. Rule out cardiac etiology-EF 45-50 by echo this admit-improved off of pressors 3. Abnormal electrocardiogram, assess for acute coronary syndrome. 4. Respiratory failure s/p extubation-improving off of BIPAP currently 5. Leukocytosis. 6. Anemia. 7. Thrombocytopenia-improved 8. Renal failure-ongoing/stable to slightly improved 9. Bacteremia with gram negative rods. 10.CHF-systolic and diastolic acute EF 45-50 by echo this admit REcc: -Tele -continue abx's and f/u ca data -Continue asa -Continue BB/hydralazine with uncontrolled BP -Start CCB to improve BVP -Follow volume status closely and will give dose of lasix -Continue PRN BIPAP resp support as necessary only -Continue bronchodilators Problems: Consultation Date/Type/Reason Admit Date/Time Sep 09, 2016 at 19:47 Initial Consult Date 09/11/16 Type of Consultation: Cardiology Reason for Consultation positive troponin Referring Provider: EMILIANO HENDRICKS Exam/Review of Systems Vital Signs Vitals Vital Signs Date Time Temp Pulse Resp B/P Pulse Ox O2 Delivery O2 Flow Rate FiO2 09/27/16 12:08 60 09/27/16 11:47 98.2 19 177/79 98 09/27/16 08:25 Nasal Cannula 2.0 09/25/16 01:20 30 Intake and Output 09/26/16 09/26/16 09/27/16 15:00 23:00 07:00 Intake Total 160 ml 40 ml 680 ml Output Total 1130 ml 100 ml 600 ml Balance -970 ml -60 ml 80 ml Exam Review of Systems: CONSTITUTIONAL: No fevers, chills. PULMONARY: No sob CARDIOVASCULAR: No chest pain/palpitations GASTROINTESTINAL: No nausea/vomiting. GENITOURINARY: No hematuria/dysuria. MUSCULOSKELETAL: No myagias/arthalgias. PSYCHIATRIC: The patient denies depression. NEUROLOGIC: No weakness Constitutional: alert Psych: no complaints Head: normocephalic ENMT: mucosa pink and moist, other (NGT in place) Neck: supple Respiratory: diminished breath sounds (at bases/B) Cardiovascular: regular rate and rhythm Gastrointestinal: soft Musculoskeletal: muscle tone (normal) Extremities: edema (none) Neurological: other (No focal deficits) Results Result Diagram: 09/27/16 0745 09/27/16 0745 Results 24 hrs Laboratory Tests Test 09/26/16 17:14 09/26/16 20:50 09/27/16 05:19 09/27/16 07:45 Bedside Glucose 129 90 79 Anion Gap 12 Basophils # 0.1 Basophils % 1.2 Blood Urea Nitrogen 27 H Calcium Level 8.7 Carbon Dioxide Level 35 H Chloride Level 103 Creatinine 1.05 H Eosinophils # 0.3 Eosinophils % 2.9 Glucose Level 102 Hematocrit 37.6 Hemoglobin 11.9 L Lymphocytes # 2.5 Lymphocytes % 25.3 Magnesium Level 1.9 Mean Corpuscular Hemoglobin 28.8 L Mean Corpuscular Hemoglobin Concent 31.6 L Mean Corpuscular Volume 91.0 Mean Platelet Volume 11.8 H Monocytes # 1.1 H Monocytes % 11.1 H Neutrophils # 5.9 Neutrophils % 59.2 Nucleated Red Blood Cells # 0.0 Nucleated Red Blood Cells % 0.0 Phosphorus Level 3.9 Platelet Count 384 Potassium Level 3.7 Red Blood Count 4.13 L Red Cell Distribution Width 16.1 H Sodium Level 146 H White Blood Count 10.0 Test 09/27/16 08:22 09/27/16 12:40 Bedside Glucose 94 118 Medications Medications Current Medications Ondansetron HCl (Zofran Inj) 4 mg Q6H PRN IV NAUSEA AND/OR VOMITING Last administered on 09/10/16 23:03; Admin Dose 4 MG; Start 09/09/16 at 20:00 Nitroglycerin (Nitroglycerin (Sl Tab) 0.4 Mg) 1 tab Q5M PRN SL CHEST PAIN; Start 09/09/16 at 20:00 Acetaminophen (Tylenol Liquid) 650 mg Q6H PRN PO PAIN LEVEL 1-3 OR FEVER Last administered on 09/26/16 18:37; Admin Dose 650 MG; Start 09/09/16 at 20:00 Morphine Sulfate (morphine) 2 mg Q4H PRN IV PAIN LEVEL 7-10 Last administered on 09/26/16 00:37; Admin Dose 2 MG; Start 09/09/16 at 20:00 Lorazepam (Ativan) 1 mg Q2H PRN IV ANXIETY Last administered on 09/22/16 16:46 ; Admin Dose 1 MG; Start 09/09/16 at 20:00 Glucose (Glutose) 15 gm Q15M PRN PO DECREASED GLUCOSE; Start 09/09/16 at 20:30 Glucose (Glutose) 22.5 gm Q15M PRN PO DECREASED GLUCOSE; Start 09/09/16 at 20: 30 Dextrose (D50w Syringe) 25 ml Q15M PRN IV DECREASED GLUCOSE Last administered on 09/25/16 17:40; Admin Dose 25 ML; Start 09/09/16 at 20:30 Dextrose (D50w Syringe) 50 ml Q15M PRN IV DECREASED GLUCOSE; Start 09/09/16 at 20:30 Glucagon (Glucagen) 1 mg Q15M PRN IM DECREASED GLUCOSE; Start 09/09/16 at 20:30 Glucose (Glutose) 15 gm Q15M PRN BUCCAL DECREASED GLUCOSE; Start 09/09/16 at 20 :30 Aspirin (Aspirin) 81 mg DAILY PO Last administered on 09/27/16 08:57; Admin Dose 81 MG; Start 09/12/16 at 09:00 Insulin Aspart (Novolog Insulin Pen) NOVOLOG *MODERATE* ALGORI... Q4 SC Last administered on 09/26/16 13:26; Admin Dose 6 UNIT; Start 09/13/16 at 13:00 Hydralazine HCl (Apresoline) 10 mg Q4H PRN IV SBP >160 Last administered on 11:57; Admin Dose 10 MG; Start 09/17/16 at 07:00 Docusate Sodium (Colace Liquid Cup) 100 mg Q12 PO Last administered on 09:00; Admin Dose 100 MG; Start 09/17/16 at 09:00 Metoprolol Tartrate (Lopressor) 50 mg BID PO Last administered on 09/27/16 08: 58; Admin Dose 50 MG; Start 09/19/16 at 21:00 Heparin Sodium (Porcine) (Heparin (5000 Units/0.5 ml)) 5,000 unit BID SC Last administered on 09/27/16 08:57; Admin Dose 5,000 UNIT; Start 09/25/16 at 11:00 Hydralazine HCl (Apresoline) 100 mg Q8 PO Last administered on 09/27/16 06:04 ; Admin Dose 100 MG; Start 09/25/16 at 14:00 Insulin Glargine (Lantus) 10 unit DAILY@08 SC Last administered on 09/27/16 08 :56; Admin Dose 10 UNIT; Start 09/26/16 at 16:00 Famotidine (Pepcid) 20 mg DAILY NGT ; Start 09/28/16 at 09:00 ALLISON CONTRERAS Sep 27, 2016 14:01
[2016-09-27] MEDS: AMLODIPINE 5 MG TAB PO SCH (14:49)
--- NOTE | 2016-09-27 18:48 | CONS ---
Date/Time of Note Date/Time of Note DATE: 09/27/16 TIME: 18:47 Assessment/Plan Assessment/Plan Chief Complaint/Hosp Course IMPRESSION: 1. Patient has SHALOM BETTER 2. S/P ATN 3. S/P vdrf NOW ON BIPAP 4.. The patient has Escherichia coli bacteremia, E. coli urinary tract infection. 5 hypernatremia better 6 pleural effusion on lasix 7 hypernatremia po water PLAN CK BMP Problems: Consultation Date/Type/Reason Admit Date/Time Sep 09, 2016 at 19:47 Initial Consult Date 09/11/16 Type of Consultation: RENAL Referring Provider: EMILIANO HENDRICKS 24 HR Interval Summary Constitutional: other (SOB BETTER) Exam/Review of Systems Vital Signs Vitals Vital Signs Date Time Temp Pulse Resp B/P Pulse Ox O2 Delivery O2 Flow Rate FiO2 09/27/16 17:00 70 09/27/16 16:21 98.3 19 157/68 98 09/27/16 08:25 Nasal Cannula 2.0 09/25/16 01:20 30 Intake and Output 09/26/16 09/26/16 09/27/16 15:00 23:00 07:00 Intake Total 160 ml 40 ml 680 ml Output Total 1130 ml 100 ml 600 ml Balance -970 ml -60 ml 80 ml Exam Neck: supple Respiratory: clear to auscultation Cardiovascular: regular rate and rhythm Gastrointestinal: bowel sounds (+), soft Results Result Diagram: 09/27/16 0745 09/27/16 0745 Results 24 hrs Laboratory Tests Test 09/26/16 20:50 09/27/16 05:19 09/27/16 07:45 09/27/16 08:22 Bedside Glucose 90 79 94 Anion Gap 12 Basophils # 0.1 Basophils % 1.2 Blood Urea Nitrogen 27 H Calcium Level 8.7 Carbon Dioxide Level 35 H Chloride Level 103 Creatinine 1.05 H Eosinophils # 0.3 Eosinophils % 2.9 Glucose Level 102 Hematocrit 37.6 Hemoglobin 11.9 L Lymphocytes # 2.5 Lymphocytes % 25.3 Magnesium Level 1.9 Mean Corpuscular Hemoglobin 28.8 L Mean Corpuscular Hemoglobin Concent 31.6 L Mean Corpuscular Volume 91.0 Mean Platelet Volume 11.8 H Monocytes # 1.1 H Monocytes % 11.1 H Neutrophils # 5.9 Neutrophils % 59.2 Nucleated Red Blood Cells # 0.0 Nucleated Red Blood Cells % 0.0 Phosphorus Level 3.9 Platelet Count 384 Potassium Level 3.7 Red Blood Count 4.13 L Red Cell Distribution Width 16.1 H Sodium Level 146 H White Blood Count 10.0 Test 09/27/16 12:40 09/27/16 18:08 Bedside Glucose 118 111 Medications Medications Current Medications Ondansetron HCl (Zofran Inj) 4 mg Q6H PRN IV NAUSEA AND/OR VOMITING Last administered on 09/10/16 23:03; Admin Dose 4 MG; Start 09/09/16 at 20:00 Nitroglycerin (Nitroglycerin (Sl Tab) 0.4 Mg) 1 tab Q5M PRN SL CHEST PAIN; Start 09/09/16 at 20:00 Acetaminophen (Tylenol Liquid) 650 mg Q6H PRN PO PAIN LEVEL 1-3 OR FEVER Last administered on 09/26/16 18:37; Admin Dose 650 MG; Start 09/09/16 at 20:00 Morphine Sulfate (morphine) 2 mg Q4H PRN IV PAIN LEVEL 7-10 Last administered on 09/26/16 00:37; Admin Dose 2 MG; Start 09/09/16 at 20:00 Lorazepam (Ativan) 1 mg Q2H PRN IV ANXIETY Last administered on 09/22/16 16:46 ; Admin Dose 1 MG; Start 09/09/16 at 20:00 Glucose (Glutose) 15 gm Q15M PRN PO DECREASED GLUCOSE; Start 09/09/16 at 20:30 Glucose (Glutose) 22.5 gm Q15M PRN PO DECREASED GLUCOSE; Start 09/09/16 at 20: 30 Dextrose (D50w Syringe) 25 ml Q15M PRN IV DECREASED GLUCOSE Last administered on 09/25/16 17:40; Admin Dose 25 ML; Start 09/09/16 at 20:30 Dextrose (D50w Syringe) 50 ml Q15M PRN IV DECREASED GLUCOSE; Start 09/09/16 at 20:30 Glucagon (Glucagen) 1 mg Q15M PRN IM DECREASED GLUCOSE; Start 09/09/16 at 20:30 Glucose (Glutose) 15 gm Q15M PRN BUCCAL DECREASED GLUCOSE; Start 09/09/16 at 20 :30 Aspirin (Aspirin) 81 mg DAILY PO Last administered on 09/27/16 08:57; Admin Dose 81 MG; Start 09/12/16 at 09:00 Insulin Aspart (Novolog Insulin Pen) NOVOLOG *MODERATE* ALGORI... Q4 SC Last administered on 09/26/16 13:26; Admin Dose 6 UNIT; Start 09/13/16 at 13:00 Hydralazine HCl (Apresoline) 10 mg Q4H PRN IV SBP >160 Last administered on 11:57; Admin Dose 10 MG; Start 09/17/16 at 07:00 Docusate Sodium (Colace Liquid Cup) 100 mg Q12 PO Last administered on 09:00; Admin Dose 100 MG; Start 09/17/16 at 09:00 Metoprolol Tartrate (Lopressor) 50 mg BID PO Last administered on 09/27/16 08: 58; Admin Dose 50 MG; Start 09/19/16 at 21:00 Heparin Sodium (Porcine) (Heparin (5000 Units/0.5 ml)) 5,000 unit BID SC Last administered on 09/27/16 08:57; Admin Dose 5,000 UNIT; Start 09/25/16 at 11:00 Hydralazine HCl (Apresoline) 100 mg Q8 PO Last administered on 09/27/16 14:49 ; Admin Dose 100 MG; Start 09/25/16 at 14:00 Insulin Glargine (Lantus) 10 unit DAILY@08 SC Last administered on 09/27/16 08 :56; Admin Dose 10 UNIT; Start 09/26/16 at 16:00 Famotidine (Pepcid) 20 mg DAILY NGT ; Start 09/28/16 at 09:00 Amlodipine Besylate (Norvasc) 5 mg DAILY PO Last administered on 09/27/16 14: 49; Admin Dose 5 MG; Start 09/27/16 at 14:00 QUITA SCHOFIELD MD Sep 27, 2016 18:47
[2016-09-28] VITALS (12 sets, daily range): BP systolic 147–184; BP diastolic 65–87; PULSE 70–80; RESP 0–19
[2016-09-28] MEDS: INSULIN ASPART [NOVOLOG] 3 ML PEN SC SCH ×6 (01:00→21:00)
[2016-09-28] MEDS: INSULIN GLARGINE [LANtus] 3 ML PEN SC SCH (08:02)
[2016-09-28] MEDS: HEPARIN 5,000 UNIT/0.5 ML SYG SC SCH ×2 (08:02→21:27)
[2016-09-28] MEDS: ASPIRIN 81 MG TAB PO SCH (08:18)
[2016-09-28] MEDS: DOCUSATE SODIUM 10 MG/ML (10ML CUP) PO SCH ×2 (08:18→21:15)
[2016-09-28] MEDS: FAMOTIDINE 20 MG TAB NGT SCH (08:18)
[2016-09-28] MEDS: AMLODIPINE 5 MG TAB PO SCH (08:19)
[2016-09-28] MEDS: METOPROLOL 50 MG TAB PO SCH ×2 (08:19→21:14)
[2016-09-28] MEDS: hydrALAzine 20 MG INJ IV PRN (11:37)
--- NOTE | 2016-09-28 16:37 | CONS ---
Date/Time of Note Date/Time of Note DATE: 09/28/16 TIME: 16:33 Assessment/Plan Assessment/Plan Chief Complaint/Hosp Course IMPRESSION: 1. Positive troponin, assess significance, assess for true acute coronary syndrome.-now downtrending in setting ongoing renal failure 2. Hypotension, shock state. Rule out cardiac etiology-EF 45-50 by echo this admit-improved off of pressors 3. Abnormal electrocardiogram, assess for acute coronary syndrome. 4. Respiratory failure s/p extubation-improving off of BIPAP currently 5. Leukocytosis. 6. Anemia. 7. Thrombocytopenia-improved 8. Renal failure-ongoing/stable to slightly improved 9. Bacteremia with gram negative rods. 10.CHF-systolic and diastolic acute EF 45-50 by echo this admit REcc: -Tele -continue abx's and f/u ca data -Continue asa -Continue BB/hydralazine with slowly improving BP -Start CCB to improve BP -Follow volume status closely s/p dose of lasix -Continue bronchodilators Problems: Consultation Date/Type/Reason Admit Date/Time Sep 09, 2016 at 19:47 Initial Consult Date 09/11/16 Type of Consultation: Cardiology Reason for Consultation positive troponin Referring Provider: EMILIANO HENDRICKS Exam/Review of Systems Vital Signs Vitals Vital Signs Date Time Temp Pulse Resp B/P Pulse Ox O2 Delivery O2 Flow Rate FiO2 09/28/16 16:23 98.0 77 18 147/65 98 09/28/16 07:37 Nasal Cannula 2.0 09/25/16 01:20 30 Intake and Output 09/27/16 09/27/16 09/28/16 15:00 23:00 07:00 Intake Total 680 ml 700 ml Output Total 1400 ml 600 ml Balance -720 ml 100 ml Exam Review of Systems: CONSTITUTIONAL: No fevers, chills. PULMONARY: No sob CARDIOVASCULAR: No chest pain/palpitations GASTROINTESTINAL: No nausea/vomiting. GENITOURINARY: No hematuria/dysuria. MUSCULOSKELETAL: No myagias/arthalgias. PSYCHIATRIC: The patient denies depression. NEUROLOGIC: No weakness Constitutional: alert, oriented Psych: no complaints ENMT: mucosa pink and moist Neck: jvd (8-9 cm water), supple Respiratory: diminished breath sounds (at bases/B) Cardiovascular: regular rate and rhythm Gastrointestinal: non-tender, soft Musculoskeletal: muscle tone Extremities: edema Neurological: other (No focal deficits) Results Result Diagram: 09/27/16 0745 09/27/16 0745 Results 24 hrs Laboratory Tests Test 09/27/16 18:08 09/27/16 21:23 09/28/16 05:49 09/28/16 07:45 Bedside Glucose 111 155 128 150 Test 09/28/16 12:35 Bedside Glucose 103 Medications Medications Current Medications Ondansetron HCl (Zofran Inj) 4 mg Q6H PRN IV NAUSEA AND/OR VOMITING Last administered on 09/10/16 23:03; Admin Dose 4 MG; Start 09/09/16 at 20:00 Nitroglycerin (Nitroglycerin (Sl Tab) 0.4 Mg) 1 tab Q5M PRN SL CHEST PAIN; Start 09/09/16 at 20:00 Acetaminophen (Tylenol Liquid) 650 mg Q6H PRN PO PAIN LEVEL 1-3 OR FEVER Last administered on 09/26/16 18:37; Admin Dose 650 MG; Start 09/09/16 at 20:00 Morphine Sulfate (morphine) 2 mg Q4H PRN IV PAIN LEVEL 7-10 Last administered on 09/26/16 00:37; Admin Dose 2 MG; Start 09/09/16 at 20:00 Lorazepam (Ativan) 1 mg Q2H PRN IV ANXIETY Last administered on 09/22/16 16:46 ; Admin Dose 1 MG; Start 09/09/16 at 20:00 Glucose (Glutose) 15 gm Q15M PRN PO DECREASED GLUCOSE; Start 09/09/16 at 20:30 Glucose (Glutose) 22.5 gm Q15M PRN PO DECREASED GLUCOSE; Start 09/09/16 at 20: 30 Dextrose (D50w Syringe) 25 ml Q15M PRN IV DECREASED GLUCOSE Last administered on 09/25/16 17:40; Admin Dose 25 ML; Start 09/09/16 at 20:30 Dextrose (D50w Syringe) 50 ml Q15M PRN IV DECREASED GLUCOSE; Start 09/09/16 at 20:30 Glucagon (Glucagen) 1 mg Q15M PRN IM DECREASED GLUCOSE; Start 09/09/16 at 20:30 Glucose (Glutose) 15 gm Q15M PRN BUCCAL DECREASED GLUCOSE; Start 09/09/16 at 20 :30 Aspirin (Aspirin) 81 mg DAILY PO Last administered on 09/28/16 08:18; Admin Dose 81 MG; Start 09/12/16 at 09:00 Insulin Aspart (Novolog Insulin Pen) NOVOLOG *MODERATE* ALGORI... Q4 SC Last administered on 09/28/16 08:04; Admin Dose 2 UNIT; Start 09/13/16 at 13:00 Hydralazine HCl (Apresoline) 10 mg Q4H PRN IV SBP >160 Last administered on 11:37; Admin Dose 10 MG; Start 09/17/16 at 07:00 Docusate Sodium (Colace Liquid Cup) 100 mg Q12 PO Last administered on 08:18; Admin Dose 100 MG; Start 09/17/16 at 09:00 Metoprolol Tartrate (Lopressor) 50 mg BID PO Last administered on 09/28/16 08: 19; Admin Dose 50 MG; Start 09/19/16 at 21:00 Heparin Sodium (Porcine) (Heparin (5000 Units/0.5 ml)) 5,000 unit BID SC Last administered on 09/28/16 08:02; Admin Dose 5,000 UNIT; Start 09/25/16 at 11:00 Hydralazine HCl (Apresoline) 100 mg Q8 PO Last administered on 09/28/16 14:36 ; Admin Dose 100 MG; Start 09/25/16 at 14:00 Insulin Glargine (Lantus) 10 unit DAILY@08 SC Last administered on 09/28/16 08 :02; Admin Dose 10 UNIT; Start 09/26/16 at 16:00 Famotidine (Pepcid) 20 mg DAILY NGT Last administered on 09/28/16 08:18; Admin Dose 20 MG; Start 09/28/16 at 09:00 Amlodipine Besylate (Norvasc) 5 mg DAILY PO Last administered on 09/28/16 08: 19; Admin Dose 5 MG; Start 09/27/16 at 14:00 ALLISON CONTRERAS Sep 28, 2016 16:37
--- NOTE | 2016-09-28 17:20 | PN ---
Date/Time of Note Date/Time of Note DATE: 09/28/16 TIME: 17:16 Assessment/Plan VTE Prophylaxis VTE Prophylaxis Intervention: heparin Lines/Catheters IV Catheter Type (from Nrsg): Central Line Central line still needed: Yes Urinary Cath still in place: Yes Reason Cath still needed: other (indicate) Assessment/Plan Assessment/Plan 1. s/p Septic shock - 2/2 Ecoli UTI /Bacteremia - much improved 2. Acute renal failure r/o CKD- 2/2 to ATN from sepsis - improved 3. Type II DM - controlled on SSI 4. Metabolic / Lactic acidosis 2/2 #1: resolved 5. Acute Hypercapnic and Hypoxemic Resp failure - s/p self extubation - on BiPAP 6. NSTEMI versus elevated trop - CV monitoring. ECHO = EF 45-50 by echo this admit. 7. Thrombocytopenia likely associated with sepsis vs meds vs mild DIC: HIT antibody negative/ s/p FFP and platelet transfusion - resolved 8. Severe Iron deficiency: + occult test stool. No signs of GI bleeding presently. S/p EGD with gastritis findings only. s/p pRBC transfusion/ and IV iron infusion PLAN: - d/c jan, plan for ARU eval possibly Friday - Wean oxygen - Continue abx per ID - Continue serial labs and monitoring - Will need prompt outpt mgt of her hernia once stable - Closely monitor hgb and platelet count on heparin PROPHYLAXIS: Pepcid / SCDS / heparin Subjective 24 Hr Interval Summary Free Text/Dictation Patient seen and examined. she has come a long way and improves daily, still very lethargic however tolerating diet, still requiring supplemental O2 Exam/Review of Systems Vital Signs Vitals Vital Signs Date Time Temp Pulse Resp B/P Pulse Ox O2 Delivery O2 Flow Rate FiO2 09/28/16 16:23 98.0 77 18 147/65 98 09/28/16 07:37 Nasal Cannula 2.0 09/25/16 01:20 30 Intake and Output 09/27/16 09/27/16 09/28/16 15:00 23:00 07:00 Intake Total 680 ml 700 ml Output Total 1400 ml 600 ml Balance -720 ml 100 ml Exam Constitutional: alert, frail, oriented, No distress Psych: nl mood/affect Head: normocephalic Eyes: PERRL ENMT: No mucosa pink and moist (dry) Neck: non-tender Respiratory: diminished breath sounds, No crackles/rales Cardiovascular: regular rate and rhythm, No murmurs/extra sounds Gastrointestinal: bowel sounds, non-tender, other (klarge umbilical hernia), soft Extremities: edema Neurological: lethargic Results Result Diagram: 09/27/16 0745 09/27/16 0745 Results 24 hrs Laboratory Tests Test 09/27/16 18:08 09/27/16 21:23 09/28/16 05:49 09/28/16 07:45 Bedside Glucose 111 155 128 150 Test 09/28/16 12:35 Bedside Glucose 103 Medications Medications Current Medications Ondansetron HCl (Zofran Inj) 4 mg Q6H PRN IV NAUSEA AND/OR VOMITING Last administered on 09/10/16 23:03; Admin Dose 4 MG; Start 09/09/16 at 20:00 Nitroglycerin (Nitroglycerin (Sl Tab) 0.4 Mg) 1 tab Q5M PRN SL CHEST PAIN; Start 09/09/16 at 20:00 Acetaminophen (Tylenol Liquid) 650 mg Q6H PRN PO PAIN LEVEL 1-3 OR FEVER Last administered on 09/26/16 18:37; Admin Dose 650 MG; Start 09/09/16 at 20:00 Morphine Sulfate (morphine) 2 mg Q4H PRN IV PAIN LEVEL 7-10 Last administered on 09/26/16 00:37; Admin Dose 2 MG; Start 09/09/16 at 20:00 Lorazepam (Ativan) 1 mg Q2H PRN IV ANXIETY Last administered on 09/22/16 16:46 ; Admin Dose 1 MG; Start 09/09/16 at 20:00 Glucose (Glutose) 15 gm Q15M PRN PO DECREASED GLUCOSE; Start 09/09/16 at 20:30 Glucose (Glutose) 22.5 gm Q15M PRN PO DECREASED GLUCOSE; Start 09/09/16 at 20: 30 Dextrose (D50w Syringe) 25 ml Q15M PRN IV DECREASED GLUCOSE Last administered on 09/25/16 17:40; Admin Dose 25 ML; Start 09/09/16 at 20:30 Dextrose (D50w Syringe) 50 ml Q15M PRN IV DECREASED GLUCOSE; Start 09/09/16 at 20:30 Glucagon (Glucagen) 1 mg Q15M PRN IM DECREASED GLUCOSE; Start 09/09/16 at 20:30 Glucose (Glutose) 15 gm Q15M PRN BUCCAL DECREASED GLUCOSE; Start 09/09/16 at 20 :30 Aspirin (Aspirin) 81 mg DAILY PO Last administered on 09/28/16 08:18; Admin Dose 81 MG; Start 09/12/16 at 09:00 Insulin Aspart (Novolog Insulin Pen) NOVOLOG *MODERATE* ALGORI... Q4 SC Last administered on 09/28/16 08:04; Admin Dose 2 UNIT; Start 09/13/16 at 13:00 Hydralazine HCl (Apresoline) 10 mg Q4H PRN IV SBP >160 Last administered on 11:37; Admin Dose 10 MG; Start 09/17/16 at 07:00 Docusate Sodium (Colace Liquid Cup) 100 mg Q12 PO Last administered on 08:18; Admin Dose 100 MG; Start 09/17/16 at 09:00 Metoprolol Tartrate (Lopressor) 50 mg BID PO Last administered on 09/28/16 08: 19; Admin Dose 50 MG; Start 09/19/16 at 21:00 Heparin Sodium (Porcine) (Heparin (5000 Units/0.5 ml)) 5,000 unit BID SC Last administered on 09/28/16 08:02; Admin Dose 5,000 UNIT; Start 09/25/16 at 11:00 Hydralazine HCl (Apresoline) 100 mg Q8 PO Last administered on 09/28/16 14:36 ; Admin Dose 100 MG; Start 09/25/16 at 14:00 Insulin Glargine (Lantus) 10 unit DAILY@08 SC Last administered on 09/28/16 08 :02; Admin Dose 10 UNIT; Start 09/26/16 at 16:00 Famotidine (Pepcid) 20 mg DAILY NGT Last administered on 09/28/16 08:18; Admin Dose 20 MG; Start 09/28/16 at 09:00 Amlodipine Besylate (Norvasc) 5 mg DAILY PO Last administered on 09/28/16 08: 19; Admin Dose 5 MG; Start 09/27/16 at 14:00 Procedures Procedures PROCEDURE: XR Chest. CLINICAL INDICATION: Shortness of breath. TECHNIQUE: Single frontal view. COMPARISON: 09/26/2016. FINDINGS: The right internal jugular vein catheter and nasogastric tube are in satisfactory and unchanged position. There is air space disease at the lung bases and small bilateral pleural effusions, unchanged. The heart size is normal. There is calcification in the aorta consistent with atherosclerosis. There is no pleural effusion. There is no pneumothorax. IMPRESSION: 1. Nasogastric tube and right IJ catheter in satisfactory position. 2. Bibasilar air space disease and small bilateral pleural effusions, unchanged. 3. Atherosclerosis. RPTAT: QQ .Trevor Harper MD, MD Date Time Electronically viewed and signed by .Trevor Harper MD, MD on 09/27/2016 11:50 .R/ CC: PEDRO SALINAS MD, [facility] EMILIANO HENDRICKS Sep 28, 2016 17:19
--- NOTE | 2016-09-28 17:24 | EN ---
Date/Time of Note Date/Time of Note DATE: 09/28/16 TIME: 17:20 Event Note Medicine Medicine Event Note LATE PROGRESS NOTE DATE OF SERVICE: 09/27/16 SUBJECTIVE: Patient now on telemetry floor, improving daily. s/p successful ST eval OBJECTIVE: Vital Signs Date Time Temp Pulse Resp B/P Pulse Ox O2 Delivery O2 Flow Rate FiO2 09/27/16 08:20 89 09/27/16 07:49 97.9 19 183/79 96 09/26/16 20:00 Nasal Cannula 2.0 09/25/16 01:20 30 Intake and Output 09/26/16 09/26/16 09/27/16 14:59 22:59 06:59 Intake Total 160 ml 80 ml 680 ml Output Total 1130 ml 200 ml 600 ml Balance -970 ml -120 ml 80 ml Constitutional: alert, frail, oriented, No distress Psych: nl mood/affect Head: normocephalic Eyes: PERRL ENMT: No mucosa pink and moist (dry) Neck: non-tender Respiratory: diminished breath sounds, No crackles/rales Cardiovascular: regular rate and rhythm, No murmurs/extra sounds Gastrointestinal: bowel sounds, non-tender, other (klarge umbilical hernia), soft Extremities: edema Neurological: lethargic Result Diagram: 09/27/16 0745 09/27/16 0745 Results 24 hrs Laboratory Tests Test 09/26/16 13:20 09/26/16 17:14 09/26/16 20:50 09/27/16 05:19 Bedside Glucose 239 H 129 90 79 Test 09/27/16 07:45 09/27/16 08:22 Anion Gap 12 Basophils # 0.1 Basophils % 1.2 Blood Urea Nitrogen 27 H Calcium Level 8.7 Carbon Dioxide Level 35 H Chloride Level 103 Creatinine 1.05 H Eosinophils # 0.3 Eosinophils % 2.9 Glucose Level 102 Hematocrit 37.6 Hemoglobin 11.9 L Lymphocytes # 2.5 Lymphocytes % 25.3 Magnesium Level 1.9 Mean Corpuscular Hemoglobin 28.8 L Mean Corpuscular Hemoglobin Concent 31.6 L Mean Corpuscular Volume 91.0 Mean Platelet Volume 11.8 H Monocytes # 1.1 H Monocytes % 11.1 H Neutrophils # 5.9 Neutrophils % 59.2 Nucleated Red Blood Cells # 0.0 Nucleated Red Blood Cells % 0.0 Phosphorus Level 3.9 Platelet Count 384 Potassium Level 3.7 Red Blood Count 4.13 L Red Cell Distribution Width 16.1 H Sodium Level 146 H White Blood Count 10.0 Bedside Glucose 94 Medications Medications Current Medications Ondansetron HCl (Zofran Inj) 4 mg Q6H PRN IV NAUSEA AND/OR VOMITING Last administered on 09/10/16 23:03; Admin Dose 4 MG; Start 09/09/16 at 20:00 Nitroglycerin (Nitroglycerin (Sl Tab) 0.4 Mg) 1 tab Q5M PRN SL CHEST PAIN; Start 09/09/16 at 20:00 Acetaminophen (Tylenol Liquid) 650 mg Q6H PRN PO PAIN LEVEL 1-3 OR FEVER Last administered on 09/26/16 18:37; Admin Dose 650 MG; Start 09/09/16 at 20:00 Morphine Sulfate (morphine) 2 mg Q4H PRN IV PAIN LEVEL 7-10 Last administered on 09/26/16 00:37; Admin Dose 2 MG; Start 09/09/16 at 20:00 Lorazepam (Ativan) 1 mg Q2H PRN IV ANXIETY Last administered on 09/22/16 16:46 ; Admin Dose 1 MG; Start 09/09/16 at 20:00 Glucose (Glutose) 15 gm Q15M PRN PO DECREASED GLUCOSE; Start 09/09/16 at 20:30 Glucose (Glutose) 22.5 gm Q15M PRN PO DECREASED GLUCOSE; Start 09/09/16 at 20: 30 Dextrose (D50w Syringe) 25 ml Q15M PRN IV DECREASED GLUCOSE Last administered on 09/25/16 17:40; Admin Dose 25 ML; Start 09/09/16 at 20:30 Dextrose (D50w Syringe) 50 ml Q15M PRN IV DECREASED GLUCOSE; Start 09/09/16 at 20:30 Glucagon (Glucagen) 1 mg Q15M PRN IM DECREASED GLUCOSE; Start 09/09/16 at 20:30 Glucose (Glutose) 15 gm Q15M PRN BUCCAL DECREASED GLUCOSE; Start 09/09/16 at 20 :30 Famotidine (Pepcid Iv) 20 mg DAILY IV Last administered on 09/27/16 08:57; Admin Dose 20 MG; Start 09/10/16 at 09:00 Aspirin (Aspirin) 81 mg DAILY PO Last administered on 09/27/16 08:57; Admin Dose 81 MG; Start 09/12/16 at 09:00 Insulin Aspart (Novolog Insulin Pen) NOVOLOG *MODERATE* ALGORI... Q4 SC Last administered on 09/26/16 13:26; Admin Dose 6 UNIT; Start 09/13/16 at 13:00 Hydralazine HCl (Apresoline) 10 mg Q4H PRN IV SBP >160 Last administered on 09/26 20:56; Admin Dose 10 MG; Start 09/17/16 at 07:00 Docusate Sodium (Colace Liquid Cup) 100 mg Q12 PO Last administered on 09:00; Admin Dose 100 MG; Start 09/17/16 at 09:00 Metoprolol Tartrate (Lopressor) 50 mg BID PO Last administered on 09/27/16 08: 58; Admin Dose 50 MG; Start 09/19/16 at 21:00 Heparin Sodium (Porcine) (Heparin (5000 Units/0.5 ml)) 5,000 unit BID SC Last administered on 09/27/16 08:57; Admin Dose 5,000 UNIT; Start 09/25/16 at 11:00 Hydralazine HCl (Apresoline) 100 mg Q8 PO Last administered on 09/27/16 06:04 ; Admin Dose 100 MG; Start 09/25/16 at 14:00 Insulin Glargine (Lantus) 10 unit DAILY@08 SC Last administered on 09/27/16 08 :56; Admin Dose 10 UNIT; Start 09/26/16 at 16:00 ASSESSMENT / PLAN: 1. s/p Septic shock - 2/2 Ecoli UTI /Bacteremia - much improved 2. Acute renal failure r/o CKD- 2/2 to ATN from sepsis - improved 3. Type II DM - controlled on SSI 4. Metabolic / Lactic acidosis 2/2 #1: resolved 5. Acute Hypercapnic and Hypoxemic Resp failure - s/p self extubation - on BiPAP 6. NSTEMI versus elevated trop - CV monitoring. ECHO = EF 45-50 by echo this admit. 7. Thrombocytopenia likely associated with sepsis vs meds vs mild DIC: HIT antibody negative/ s/p FFP and platelet transfusion - resolved 8. Severe Iron deficiency: + occult test stool. No signs of GI bleeding presently. S/p EGD with gastritis findings only. s/p pRBC transfusion/ and IV iron infusion PLAN: - Continue abx per ID - Continue serial labs and monitoring - Will need prompt outpt mgt of her hernia once stable - Closely monitor hgb and platelet count on heparin - Commence diet per ST / begin d/c planning PROPHYLAXIS: Pepcid / SCDS / heparin EMILIANO HENDRICKS Sep 28, 2016 17:24
--- NOTE | 2016-09-28 19:18 | CONS ---
Date/Time of Note Date/Time of Note DATE: 09/28/16 TIME: 19:17 Assessment/Plan Assessment/Plan Chief Complaint/Hosp Course IMPRESSION: 1. Patient has SHALOM BETTER 2. S/P ATN 3. S/P vdrf NOW ON BIPAP 4.. The patient has Escherichia coli bacteremia, E. coli urinary tract infection. 5 hypernatremia better 6 pleural effusion on lasix 7 hypernatremia po water PLAN CK BMP Problems: Consultation Date/Type/Reason Admit Date/Time Sep 09, 2016 at 19:47 Initial Consult Date 09/11/16 Type of Consultation: renal Referring Provider: EMILIANO HENDRICKS 24 HR Interval Summary Constitutional: other (no distress) Exam/Review of Systems Vital Signs Vitals Vital Signs Date Time Temp Pulse Resp B/P Pulse Ox O2 Delivery O2 Flow Rate FiO2 09/28/16 16:23 98.0 77 18 147/65 98 09/28/16 07:37 Nasal Cannula 2.0 09/25/16 01:20 30 Intake and Output 09/27/16 09/27/16 09/28/16 15:00 23:00 07:00 Intake Total 680 ml 700 ml Output Total 1400 ml 600 ml Balance -720 ml 100 ml Exam Neck: supple Respiratory: clear to auscultation Cardiovascular: regular rate and rhythm Gastrointestinal: soft Musculoskeletal: nl extremities to inspection Results Result Diagram: 09/27/16 0745 09/27/16 0745 Results 24 hrs Laboratory Tests Test 09/27/16 21:23 09/28/16 05:49 09/28/16 07:45 09/28/16 12:35 Bedside Glucose 155 128 150 103 Test 09/28/16 17:04 Bedside Glucose 89 Medications Medications Current Medications Ondansetron HCl (Zofran Inj) 4 mg Q6H PRN IV NAUSEA AND/OR VOMITING Last administered on 09/10/16 23:03; Admin Dose 4 MG; Start 09/09/16 at 20:00 Nitroglycerin (Nitroglycerin (Sl Tab) 0.4 Mg) 1 tab Q5M PRN SL CHEST PAIN; Start 09/09/16 at 20:00 Acetaminophen (Tylenol Liquid) 650 mg Q6H PRN PO PAIN LEVEL 1-3 OR FEVER Last administered on 09/26/16 18:37; Admin Dose 650 MG; Start 09/09/16 at 20:00 Morphine Sulfate (morphine) 2 mg Q4H PRN IV PAIN LEVEL 7-10 Last administered on 09/26/16 00:37; Admin Dose 2 MG; Start 09/09/16 at 20:00 Lorazepam (Ativan) 1 mg Q2H PRN IV ANXIETY Last administered on 09/22/16 16:46 ; Admin Dose 1 MG; Start 09/09/16 at 20:00 Glucose (Glutose) 15 gm Q15M PRN PO DECREASED GLUCOSE; Start 09/09/16 at 20:30 Glucose (Glutose) 22.5 gm Q15M PRN PO DECREASED GLUCOSE; Start 09/09/16 at 20: 30 Dextrose (D50w Syringe) 25 ml Q15M PRN IV DECREASED GLUCOSE Last administered on 09/25/16 17:40; Admin Dose 25 ML; Start 09/09/16 at 20:30 Dextrose (D50w Syringe) 50 ml Q15M PRN IV DECREASED GLUCOSE; Start 09/09/16 at 20:30 Glucagon (Glucagen) 1 mg Q15M PRN IM DECREASED GLUCOSE; Start 09/09/16 at 20:30 Glucose (Glutose) 15 gm Q15M PRN BUCCAL DECREASED GLUCOSE; Start 09/09/16 at 20 :30 Aspirin (Aspirin) 81 mg DAILY PO Last administered on 09/28/16 08:18; Admin Dose 81 MG; Start 09/12/16 at 09:00 Insulin Aspart (Novolog Insulin Pen) NOVOLOG *MODERATE* ALGORI... Q4 SC Last administered on 09/28/16 08:04; Admin Dose 2 UNIT; Start 09/13/16 at 13:00 Hydralazine HCl (Apresoline) 10 mg Q4H PRN IV SBP >160 Last administered on 11:37; Admin Dose 10 MG; Start 09/17/16 at 07:00 Docusate Sodium (Colace Liquid Cup) 100 mg Q12 PO Last administered on 08:18; Admin Dose 100 MG; Start 09/17/16 at 09:00 Metoprolol Tartrate (Lopressor) 50 mg BID PO Last administered on 09/28/16 08: 19; Admin Dose 50 MG; Start 09/19/16 at 21:00 Heparin Sodium (Porcine) (Heparin (5000 Units/0.5 ml)) 5,000 unit BID SC Last administered on 09/28/16 08:02; Admin Dose 5,000 UNIT; Start 09/25/16 at 11:00 Hydralazine HCl (Apresoline) 100 mg Q8 PO Last administered on 09/28/16 14:36 ; Admin Dose 100 MG; Start 09/25/16 at 14:00 Insulin Glargine (Lantus) 10 unit DAILY@08 SC Last administered on 09/28/16 08 :02; Admin Dose 10 UNIT; Start 09/26/16 at 16:00 Famotidine (Pepcid) 20 mg DAILY NGT Last administered on 09/28/16 08:18; Admin Dose 20 MG; Start 09/28/16 at 09:00 Amlodipine Besylate (Norvasc) 5 mg DAILY PO Last administered on 09/28/16 08: 19; Admin Dose 5 MG; Start 09/27/16 at 14:00 QUITA SCHOFIELD MD Sep 28, 2016 19:18
--- NOTE | 2016-09-28 19:53 | CONS ---
Date/Time of Note Date/Time of Note DATE: 09/28/16 TIME: 19:52 Assessment/Plan Assessment/Plan Chief Complaint/Hosp Course IMPRESSION: thrombocytopenia in pt with severe sepsis, exposed to multiple meds with pos thrombocytopenic effect, including VANCO, ZOSYN, HEPARIN,CEFAZOLIN- RESOLVED NO EVIDENCE DIC cont to monitor blood count closely transfuse if platelet count less than [id number], considering severe sepsis HIPA- NEG PLATELET COUNT IMPROVING, NORMALIZED Leukocytosis. REACTIVE MONITOR IMPROVING Anemia. C/W ACD MONITOR BLOOD COUNT CLOSELY TRANSFUSE NEEDED Severe Sepsis with septic shock 2/ Ecoli UTI /Bacteremia Acute renal failure - 2/2 to ATN from sepsis Type II DM - Hyperglycemic on D5W Metabolic / Lactic acidosis / #1 Acute resp failure now ventilator dependent NSTEMI versus demand ischemia Positive troponin, assess significance, assess for true acute coronary syndrome. Metabolic acidosis respiratory failure, vent dependent incomplete database Thank you for allowing me to take part in the care of this patient. I will continue to follow along very closely with you. Further recommendations will be made as the patient progresses through her inpatient hospital clinical course. Problems: Consultation Date/Type/Reason Admit Date/Time Sep 09, 2016 at 19:47 Initial Consult Date 09/13/16 Type of Consultation: HEMEON Referring Provider: EMILIANO HENDRICKS 24 HR Interval Summary Free Text/Dictation Patient now on telemetry floor, improving daily. s/p successful ST eval COUNT STABLE Exam/Review of Systems Vital Signs Vitals Vital Signs Date Time Temp Pulse Resp B/P Pulse Ox O2 Delivery O2 Flow Rate FiO2 09/28/16 16:23 98.0 77 18 147/65 98 09/28/16 07:37 Nasal Cannula 2.0 09/25/16 01:20 30 Intake and Output 09/27/16 09/27/16 09/28/16 15:00 23:00 07:00 Intake Total 680 ml 700 ml Output Total 1400 ml 600 ml Balance -720 ml 100 ml Exam Constitutional: alert, frail, oriented, No distress Psych: nl mood/affect Head: normocephalic Eyes: PERRL ENMT: No mucosa pink and moist (dry) Neck: non-tender Respiratory: diminished breath sounds, No crackles/rales Cardiovascular: regular rate and rhythm, No murmurs/extra sounds Gastrointestinal: bowel sounds, non-tender, other (klarge umbilical hernia), soft Extremities: edema Neurological: lethargic Results Result Diagram: 09/27/16 0745 09/27/16 0745 Results 24 hrs Laboratory Tests Test 09/27/16 21:23 09/28/16 05:49 09/28/16 07:45 09/28/16 12:35 Bedside Glucose 155 128 150 103 Test 09/28/16 17:04 Bedside Glucose 89 Medications Medications Current Medications Ondansetron HCl (Zofran Inj) 4 mg Q6H PRN IV NAUSEA AND/OR VOMITING Last administered on 09/10/16 23:03; Admin Dose 4 MG; Start 09/09/16 at 20:00 Nitroglycerin (Nitroglycerin (Sl Tab) 0.4 Mg) 1 tab Q5M PRN SL CHEST PAIN; Start 09/09/16 at 20:00 Acetaminophen (Tylenol Liquid) 650 mg Q6H PRN PO PAIN LEVEL 1-3 OR FEVER Last administered on 09/26/16 18:37; Admin Dose 650 MG; Start 09/09/16 at 20:00 Morphine Sulfate (morphine) 2 mg Q4H PRN IV PAIN LEVEL 7-10 Last administered on 09/26/16 00:37; Admin Dose 2 MG; Start 09/09/16 at 20:00 Lorazepam (Ativan) 1 mg Q2H PRN IV ANXIETY Last administered on 09/22/16 16:46 ; Admin Dose 1 MG; Start 09/09/16 at 20:00 Glucose (Glutose) 15 gm Q15M PRN PO DECREASED GLUCOSE; Start 09/09/16 at 20:30 Glucose (Glutose) 22.5 gm Q15M PRN PO DECREASED GLUCOSE; Start 09/09/16 at 20: 30 Dextrose (D50w Syringe) 25 ml Q15M PRN IV DECREASED GLUCOSE Last administered on 09/25/16 17:40; Admin Dose 25 ML; Start 09/09/16 at 20:30 Dextrose (D50w Syringe) 50 ml Q15M PRN IV DECREASED GLUCOSE; Start 09/09/16 at 20:30 Glucagon (Glucagen) 1 mg Q15M PRN IM DECREASED GLUCOSE; Start 09/09/16 at 20:30 Glucose (Glutose) 15 gm Q15M PRN BUCCAL DECREASED GLUCOSE; Start 09/09/16 at 20 :30 Aspirin (Aspirin) 81 mg DAILY PO Last administered on 09/28/16 08:18; Admin Dose 81 MG; Start 09/12/16 at 09:00 Insulin Aspart (Novolog Insulin Pen) NOVOLOG *MODERATE* ALGORI... Q4 SC Last administered on 09/28/16 08:04; Admin Dose 2 UNIT; Start 09/13/16 at 13:00 Hydralazine HCl (Apresoline) 10 mg Q4H PRN IV SBP >160 Last administered on 11:37; Admin Dose 10 MG; Start 09/17/16 at 07:00 Docusate Sodium (Colace Liquid Cup) 100 mg Q12 PO Last administered on 08:18; Admin Dose 100 MG; Start 09/17/16 at 09:00 Metoprolol Tartrate (Lopressor) 50 mg BID PO Last administered on 09/28/16 08: 19; Admin Dose 50 MG; Start 09/19/16 at 21:00 Heparin Sodium (Porcine) (Heparin (5000 Units/0.5 ml)) 5,000 unit BID SC Last administered on 09/28/16 08:02; Admin Dose 5,000 UNIT; Start 09/25/16 at 11:00 Hydralazine HCl (Apresoline) 100 mg Q8 PO Last administered on 09/28/16 14:36 ; Admin Dose 100 MG; Start 09/25/16 at 14:00 Insulin Glargine (Lantus) 10 unit DAILY@08 SC Last administered on 09/28/16 08 :02; Admin Dose 10 UNIT; Start 09/26/16 at 16:00 Famotidine (Pepcid) 20 mg DAILY NGT Last administered on 09/28/16 08:18; Admin Dose 20 MG; Start 09/28/16 at 09:00 Amlodipine Besylate (Norvasc) 5 mg DAILY PO Last administered on 09/28/16 08: 19; Admin Dose 5 MG; Start 09/27/16 at 14:00 JEFF FRANK MD Sep 28, 2016 19:53
[2016-09-29] VITALS (12 sets, daily range): BP systolic 130–170; BP diastolic 67–81; PULSE 63–76; RESP 16–19
[2016-09-29] MEDS: INSULIN ASPART [NOVOLOG] 3 ML PEN SC SCH ×6 (01:00→21:00)
[2016-09-29 06:46] LABS: POTASSIUM 3.6 mmol/L (3.5-5.1)
[2016-09-29 06:48] LABS: CREATININE 1.13 mg/dl (0.44-1.00)
[2016-09-29 06:49] LABS: CALCIUM 8.3 mg/dl (8.4-10.2)
[2016-09-29] MEDS: INSULIN GLARGINE [LANtus] 3 ML PEN SC SCH (08:34)
[2016-09-29] MEDS: HEPARIN 5,000 UNIT/0.5 ML SYG SC SCH ×2 (08:35→21:00)
[2016-09-29] MEDS: ASPIRIN 81 MG TAB PO SCH (08:36)
[2016-09-29] MEDS: DOCUSATE SODIUM 10 MG/ML (10ML CUP) PO SCH ×2 (08:36→20:55)
[2016-09-29] MEDS: METOPROLOL 50 MG TAB PO SCH ×2 (08:36→20:56)
[2016-09-29] MEDS: FAMOTIDINE 20 MG TAB NGT SCH (08:36)
[2016-09-29] MEDS: AMLODIPINE 5 MG TAB PO SCH ×2 (08:37→20:56)
--- NOTE | 2016-09-29 15:52 | CONS ---
Date/Time of Note Date/Time of Note DATE: 09/29/16 TIME: 15:50 Assessment/Plan Assessment/Plan Chief Complaint/Hosp Course IMPRESSION: 1. Positive troponin, assess significance, assess for true acute coronary syndrome.-now downtrending in setting ongoing renal failure 2. Hypotension, shock state. Rule out cardiac etiology-EF 45-50 by echo this admit-improved off of pressors 3. Abnormal electrocardiogram, assess for acute coronary syndrome. 4. Respiratory failure s/p extubation-improving off of BIPAP currently 5. Leukocytosis. 6. Anemia. 7. Thrombocytopenia-improved 8. Renal failure-ongoing/stable to slightly improved 9. Bacteremia with gram negative rods. 10.CHF-systolic and diastolic acute EF 45-50 by echo this admit REcc: -Tele -continue abx's and f/u ca data -Continue asa -Continue BB/hydralazine with slowly improving BP -Increase dose of CCB to improve BP -Follow volume status closely with intermittent spot dosing of lasix -Continue bronchodilators Problems: Consultation Date/Type/Reason Admit Date/Time Sep 09, 2016 at 19:47 Initial Consult Date 09/11/16 Type of Consultation: Cardiology Reason for Consultation positive troponin Referring Provider: EMILIANO HENDRICKS Exam/Review of Systems Vital Signs Vitals Vital Signs Date Time Temp Pulse Resp B/P Pulse Ox O2 Delivery O2 Flow Rate FiO2 09/29/16 12:39 98.0 18 165/67 97 09/29/16 12:04 76 09/29/16 11:06 Nasal Cannula 2.0 Intake and Output 09/28/16 09/28/16 09/29/16 15:00 23:00 07:00 Intake Total 700 ml 150 ml Output Total 2450 ml Balance -1750 ml 150 ml Exam Review of Systems: CONSTITUTIONAL: No fevers, chills. PULMONARY: No sob CARDIOVASCULAR: No chest pain/palpitations GASTROINTESTINAL: No nausea/vomiting. GENITOURINARY: No hematuria/dysuria. MUSCULOSKELETAL: No myagias/arthalgias. PSYCHIATRIC: The patient denies depression. NEUROLOGIC: No weakness Constitutional: alert, oriented Psych: no complaints Head: normocephalic ENMT: mucosa pink and moist Neck: jvd (9 cm water), supple Respiratory: diminished breath sounds (at abses/B) Cardiovascular: regular rate and rhythm Gastrointestinal: non-tender, soft Musculoskeletal: muscle tone (normal) Extremities: edema (trace/B) Results Result Diagram: 09/27/16 0745 09/29/16 0552 Results 24 hrs Laboratory Tests Test 09/28/16 17:04 09/28/16 21:12 09/29/16 05:36 09/29/16 05:52 Bedside Glucose 89 125 94 Anion Gap 12 Blood Urea Nitrogen 23 H Calcium Level 8.3 L Carbon Dioxide Level 35 H Chloride Level 101 Creatinine 1.13 H Glucose Level 81 Potassium Level 3.6 Sodium Level 144 Test 09/29/16 07:51 09/29/16 11:40 Bedside Glucose 78 105 Medications Medications Current Medications Ondansetron HCl (Zofran Inj) 4 mg Q6H PRN IV NAUSEA AND/OR VOMITING Last administered on 09/10/16 23:03; Admin Dose 4 MG; Start 09/09/16 at 20:00 Nitroglycerin (Nitroglycerin (Sl Tab) 0.4 Mg) 1 tab Q5M PRN SL CHEST PAIN; Start 09/09/16 at 20:00 Acetaminophen (Tylenol Liquid) 650 mg Q6H PRN PO PAIN LEVEL 1-3 OR FEVER Last administered on 09/26/16 18:37; Admin Dose 650 MG; Start 09/09/16 at 20:00 Morphine Sulfate (morphine) 2 mg Q4H PRN IV PAIN LEVEL 7-10 Last administered on 09/26/16 00:37; Admin Dose 2 MG; Start 09/09/16 at 20:00 Lorazepam (Ativan) 1 mg Q2H PRN IV ANXIETY Last administered on 09/22/16 16:46 ; Admin Dose 1 MG; Start 09/09/16 at 20:00 Glucose (Glutose) 15 gm Q15M PRN PO DECREASED GLUCOSE; Start 09/09/16 at 20:30 Glucose (Glutose) 22.5 gm Q15M PRN PO DECREASED GLUCOSE; Start 09/09/16 at 20: 30 Dextrose (D50w Syringe) 25 ml Q15M PRN IV DECREASED GLUCOSE Last administered on 09/25/16 17:40; Admin Dose 25 ML; Start 09/09/16 at 20:30 Dextrose (D50w Syringe) 50 ml Q15M PRN IV DECREASED GLUCOSE; Start 09/09/16 at 20:30 Glucagon (Glucagen) 1 mg Q15M PRN IM DECREASED GLUCOSE; Start 09/09/16 at 20:30 Glucose (Glutose) 15 gm Q15M PRN BUCCAL DECREASED GLUCOSE; Start 09/09/16 at 20 :30 Aspirin (Aspirin) 81 mg DAILY PO Last administered on 09/29/16 08:36; Admin Dose 81 MG; Start 09/12/16 at 09:00 Insulin Aspart (Novolog Insulin Pen) NOVOLOG *MODERATE* ALGORI... Q4 SC Last administered on 09/28/16 08:04; Admin Dose 2 UNIT; Start 09/13/16 at 13:00 Hydralazine HCl (Apresoline) 10 mg Q4H PRN IV SBP >160 Last administered on 11:37; Admin Dose 10 MG; Start 09/17/16 at 07:00 Docusate Sodium (Colace Liquid Cup) 100 mg Q12 PO Last administered on 08:36; Admin Dose 100 MG; Start 09/17/16 at 09:00 Metoprolol Tartrate (Lopressor) 50 mg BID PO Last administered on 09/29/16 08: 36; Admin Dose 50 MG; Start 09/19/16 at 21:00 Heparin Sodium (Porcine) (Heparin (5000 Units/0.5 ml)) 5,000 unit BID SC Last administered on 09/29/16 08:35; Admin Dose 5,000 UNIT; Start 09/25/16 at 11:00 Hydralazine HCl (Apresoline) 100 mg Q8 PO Last administered on 09/29/16 14:24 ; Admin Dose 100 MG; Start 09/25/16 at 14:00 Insulin Glargine (Lantus) 10 unit DAILY@08 SC Last administered on 09/29/16 08 :34; Admin Dose 10 UNIT; Start 09/26/16 at 16:00 Famotidine (Pepcid) 20 mg DAILY NGT Last administered on 09/29/16 08:36; Admin Dose 20 MG; Start 09/28/16 at 09:00 Amlodipine Besylate (Norvasc) 5 mg DAILY PO Last administered on 09/29/16 08: 37; Admin Dose 5 MG; Start 09/27/16 at 14:00 ALLISON CONTRERAS 12, 2017 15:52
--- NOTE | 2016-09-29 17:17 | CONS ---
Date/Time of Note Date/Time of Note DATE: 09/29/16 TIME: 17:17 Assessment/Plan Assessment/Plan Chief Complaint/Hosp Course IMPRESSION: 1. Patient has SHALOM BETTER 2. S/P ATN 3. S/P vdrf NOW ON BIPAP 4.. The patient has Escherichia coli bacteremia, E. coli urinary tract infection. 5 hypernatremia better 6 pleural effusion on lasix 7 hypernatremia po water BETTER PLAN CK BMP Problems: Consultation Date/Type/Reason Admit Date/Time Sep 09, 2016 at 19:47 Initial Consult Date 09/11/16 Type of Consultation: RENAL Referring Provider: EMILIANO HENDRICKS 24 HR Interval Summary Constitutional: no complaints Exam/Review of Systems Vital Signs Vitals Vital Signs Date Time Temp Pulse Resp B/P Pulse Ox O2 Delivery O2 Flow Rate FiO2 09/29/16 16:13 67 09/29/16 12:39 98.0 18 165/67 97 09/29/16 11:06 Nasal Cannula 2.0 Intake and Output 09/28/16 09/28/16 09/29/16 15:00 23:00 07:00 Intake Total 700 ml 150 ml Output Total 2450 ml Balance -1750 ml 150 ml Exam Respiratory: clear to auscultation Cardiovascular: regular rate and rhythm Gastrointestinal: soft Musculoskeletal: nl extremities to inspection Results Result Diagram: 09/27/16 0745 09/29/16 0552 Results 24 hrs Laboratory Tests Test 09/28/16 21:12 09/29/16 05:36 09/29/16 05:52 09/29/16 07:51 Bedside Glucose 125 94 78 Anion Gap 12 Blood Urea Nitrogen 23 H Calcium Level 8.3 L Carbon Dioxide Level 35 H Chloride Level 101 Creatinine 1.13 H Glucose Level 81 Potassium Level 3.6 Sodium Level 144 Test 09/29/16 11:40 09/29/16 17:05 Bedside Glucose 105 92 Medications Medications Current Medications Ondansetron HCl (Zofran Inj) 4 mg Q6H PRN IV NAUSEA AND/OR VOMITING Last administered on 09/10/16t 23:03; Admin Dose 4 MG; Start 09/09/16 at 20:00 Nitroglycerin (Nitroglycerin (Sl Tab) 0.4 Mg) 1 tab Q5M PRN SL CHEST PAIN; Start 09/09/16 at 20:00 Acetaminophen (Tylenol Liquid) 650 mg Q6H PRN PO PAIN LEVEL 1-3 OR FEVER Last administered on 09/26/16 18:37; Admin Dose 650 MG; Start 09/09/16 at 20:00 Morphine Sulfate (morphine) 2 mg Q4H PRN IV PAIN LEVEL 7-10 Last administered on 09/26/16 00:37; Admin Dose 2 MG; Start 09/09/16 at 20:00 Lorazepam (Ativan) 1 mg Q2H PRN IV ANXIETY Last administered on 09/22/16 16:46 ; Admin Dose 1 MG; Start 09/09/16 at 20:00 Glucose (Glutose) 15 gm Q15M PRN PO DECREASED GLUCOSE; Start 09/09/16 at 20:30 Glucose (Glutose) 22.5 gm Q15M PRN PO DECREASED GLUCOSE; Start 09/09/16 at 20: 30 Dextrose (D50w Syringe) 25 ml Q15M PRN IV DECREASED GLUCOSE Last administered on 09/25/16 17:40; Admin Dose 25 ML; Start 09/09/16 at 20:30 Dextrose (D50w Syringe) 50 ml Q15M PRN IV DECREASED GLUCOSE; Start 09/09/16 at 20:30 Glucagon (Glucagen) 1 mg Q15M PRN IM DECREASED GLUCOSE; Start 09/09/16 at 20:30 Glucose (Glutose) 15 gm Q15M PRN BUCCAL DECREASED GLUCOSE; Start 09/09/16 at 20 :30 Aspirin (Aspirin) 81 mg DAILY PO Last administered on 09/29/16 08:36; Admin Dose 81 MG; Start 09/12/16 at 09:00 Insulin Aspart (Novolog Insulin Pen) NOVOLOG *MODERATE* ALGORI... Q4 SC Last administered on 09/28/16 08:04; Admin Dose 2 UNIT; Start 09/13/16 at 13:00 Hydralazine HCl (Apresoline) 10 mg Q4H PRN IV SBP >160 Last administered on 11:37; Admin Dose 10 MG; Start 09/17/16 at 07:00 Docusate Sodium (Colace Liquid Cup) 100 mg Q12 PO Last administered on 08:36; Admin Dose 100 MG; Start 09/17/16 at 09:00 Metoprolol Tartrate (Lopressor) 50 mg BID PO Last administered on 09/29/16 08: 36; Admin Dose 50 MG; Start 09/19/16 at 21:00 Heparin Sodium (Porcine) (Heparin (5000 Units/0.5 ml)) 5,000 unit BID SC Last administered on 09/29/16 08:35; Admin Dose 5,000 UNIT; Start 09/25/16 at 11:00 Hydralazine HCl (Apresoline) 100 mg Q8 PO Last administered on 09/29/16 14:24 ; Admin Dose 100 MG; Start 09/25/16 at 14:00 Insulin Glargine (Lantus) 10 unit DAILY@08 SC Last administered on 09/29/16 08 :34; Admin Dose 10 UNIT; Start 09/26/16 at 16:00 Famotidine (Pepcid) 20 mg DAILY NGT Last administered on 09/29/16 08:36; Admin Dose 20 MG; Start 09/28/16 at 09:00 Amlodipine Besylate (Norvasc) 5 mg BID PO ; Start 09/29/16 at 21:00 QUITA SCHOFIELD MD Sep 29, 2016 17:17
--- NOTE | 2016-09-29 17:43 | PN ---
Date/Time of Note Date/Time of Note DATE: 09/29/16 TIME: 17:41 Assessment/Plan VTE Prophylaxis VTE Prophylaxis Intervention: heparin Lines/Catheters IV Catheter Type (from Nrsg): Central Line Central line still needed: Yes Urinary Cath still in place: No Assessment/Plan Assessment/Plan 1. s/p Septic shock - 2/2 Ecoli UTI /Bacteremia - much improved 2. Acute renal failure r/o CKD- 2/2 to ATN from sepsis - improved 3. Type II DM - controlled on SSI 4. Metabolic / Lactic acidosis 2/2 #1: resolved 5. Acute Hypercapnic and Hypoxemic Resp failure - s/p self extubation - on BiPAP 6. NSTEMI versus elevated trop - CV monitoring. ECHO = EF 45-50 by echo this admit. 7. Thrombocytopenia likely associated with sepsis vs meds vs mild DIC: HIT antibody negative/ s/p FFP and platelet transfusion - resolved 8. Severe Iron deficiency: + occult test stool. No signs of GI bleeding presently. S/p EGD with gastritis findings only. s/p pRBC transfusion/ and IV iron infusion 9. Large periumbilical hernia predisposing to recurrent UTIs PLAN: - d/c jan, plan for ARU eval possibly Friday - Wean oxygen - Continue abx per ID - Continue serial labs and monitoring - Will need prompt outpt mgt of her hernia once stable for surgical repair. Family aware - Closely monitor hgb and platelet count on heparin PROPHYLAXIS: Pepcid / SCDS / heparin Subjective 24 Hr Interval Summary Free Text/Dictation Patient seen and examined. Nursing reports no acute overnight events. Exam/Review of Systems Vital Signs Vitals Vital Signs Date Time Temp Pulse Resp B/P Pulse Ox O2 Delivery O2 Flow Rate FiO2 09/29/16 16:13 67 09/29/16 12:39 98.0 18 165/67 97 09/29/16 11:06 Nasal Cannula 2.0 Intake and Output 09/28/16 09/28/16 09/29/16 15:00 23:00 07:00 Intake Total 700 ml 150 ml Output Total 2450 ml Balance -1750 ml 150 ml Exam Constitutional: alert, frail, oriented, No distress Psych: nl mood/affect Head: normocephalic Eyes: PERRL ENMT: No mucosa pink and moist (dry) Neck: non-tender Respiratory: diminished breath sounds, No crackles/rales Cardiovascular: regular rate and rhythm, No murmurs/extra sounds Gastrointestinal: bowel sounds, non-tender, other (large umbilical hernia), soft Extremities: edema Neurological: lethargic Results Result Diagram: 09/27/16 0745 09/29/16 0552 Results 24 hrs Laboratory Tests Test 09/28/16 21:12 09/29/16 05:36 09/29/16 05:52 09/29/16 07:51 Bedside Glucose 125 94 78 Anion Gap 12 Blood Urea Nitrogen 23 H Calcium Level 8.3 L Carbon Dioxide Level 35 H Chloride Level 101 Creatinine 1.13 H Glucose Level 81 Potassium Level 3.6 Sodium Level 144 Test 09/29/16 11:40 09/29/16 17:05 Bedside Glucose 105 92 Medications Medications Current Medications Ondansetron HCl (Zofran Inj) 4 mg Q6H PRN IV NAUSEA AND/OR VOMITING Last administered on 09/10/16 23:03; Admin Dose 4 MG; Start 09/09/16 at 20:00 Nitroglycerin (Nitroglycerin (Sl Tab) 0.4 Mg) 1 tab Q5M PRN SL CHEST PAIN; Start 09/09/16 at 20:00 Acetaminophen (Tylenol Liquid) 650 mg Q6H PRN PO PAIN LEVEL 1-3 OR FEVER Last administered on 09/26/16 18:37; Admin Dose 650 MG; Start 09/09/16 at 20:00 Morphine Sulfate (morphine) 2 mg Q4H PRN IV PAIN LEVEL 7-10 Last administered on 09/26/16 00:37; Admin Dose 2 MG; Start 09/09/16 at 20:00 Lorazepam (Ativan) 1 mg Q2H PRN IV ANXIETY Last administered on 09/22/16 16:46 ; Admin Dose 1 MG; Start 09/09/16 at 20:00 Glucose (Glutose) 15 gm Q15M PRN PO DECREASED GLUCOSE; Start 09/09/16 at 20:30 Glucose (Glutose) 22.5 gm Q15M PRN PO DECREASED GLUCOSE; Start 09/09/16 at 20: 30 Dextrose (D50w Syringe) 25 ml Q15M PRN IV DECREASED GLUCOSE Last administered on 09/25/16 17:40; Admin Dose 25 ML; Start 09/09/16 at 20:30 Dextrose (D50w Syringe) 50 ml Q15M PRN IV DECREASED GLUCOSE; Start 09/09/16 at 20:30 Glucagon (Glucagen) 1 mg Q15M PRN IM DECREASED GLUCOSE; Start 09/09/16 at 20:30 Glucose (Glutose) 15 gm Q15M PRN BUCCAL DECREASED GLUCOSE; Start 09/09/16 at 20 :30 Aspirin (Aspirin) 81 mg DAILY PO Last administered on 09/29/16 08:36; Admin Dose 81 MG; Start 09/12/16 at 09:00 Insulin Aspart (Novolog Insulin Pen) NOVOLOG *MODERATE* ALGORI... Q4 SC Last administered on 09/28/16 08:04; Admin Dose 2 UNIT; Start 09/13/16 at 13:00 Hydralazine HCl (Apresoline) 10 mg Q4H PRN IV SBP >160 Last administered on 11:37; Admin Dose 10 MG; Start 09/17/16 at 07:00 Docusate Sodium (Colace Liquid Cup) 100 mg Q12 PO Last administered on 08:36; Admin Dose 100 MG; Start 09/17/16 at 09:00 Metoprolol Tartrate (Lopressor) 50 mg BID PO Last administered on 09/29/16 08: 36; Admin Dose 50 MG; Start 09/19/16 at 21:00 Heparin Sodium (Porcine) (Heparin (5000 Units/0.5 ml)) 5,000 unit BID SC Last administered on 09/29/16 08:35; Admin Dose 5,000 UNIT; Start 09/25/16 at 11:00 Hydralazine HCl (Apresoline) 100 mg Q8 PO Last administered on 09/29/16 14:24 ; Admin Dose 100 MG; Start 09/25/16 at 14:00 Insulin Glargine (Lantus) 10 unit DAILY@08 SC Last administered on 09/29/16 08 :34; Admin Dose 10 UNIT; Start 09/26/16 at 16:00 Famotidine (Pepcid) 20 mg DAILY NGT Last administered on 09/29/16 08:36; Admin Dose 20 MG; Start 09/28/16 at 09:00 Amlodipine Besylate (Norvasc) 5 mg BID PO ; Start 09/29/16 at 21:00 EMILIANO HENDRICKS Sep 29, 2016 17:43
--- NOTE | 2016-09-29 20:06 | CONS ---
Date/Time of Note Date/Time of Note DATE: 09/29/16 TIME: 20:04 Assessment/Plan Assessment/Plan Chief Complaint/Hosp Course IMPRESSION: thrombocytopenia in pt with severe sepsis, exposed to multiple meds with pos thrombocytopenic effect, including VANCO, ZOSYN, HEPARIN,CEFAZOLIN- RESOLVED NO EVIDENCE OF DIC cont to monitor blood count closely HIPA- NEG PLATELET COUNT NORMALIZED Leukocytosis. REACTIVE MONITOR IMPROVING Anemia. C/W ACD MONITOR BLOOD COUNT CLOSELY TRANSFUSE NEEDED Severe Sepsis with septic shock 2/2 Ecoli UTI /Bacteremia Acute renal failure - 2/2 to ATN from sepsis Type II DM - Hyperglycemic on D5W Metabolic / Lactic acidosis 2/2 #1 Acute resp failure now ventilator dependent NSTEMI versus demand ischemia Positive troponin, assess significance, assess for true acute coronary syndrome. Metabolic acidosis respiratory failure, vent dependent incomplete database Thank you for allowing me to take part in the care of this patient. I will continue to follow along very closely with you. Further recommendations will be made as the patient progresses through her inpatient hospital clinical course. Problems: Consultation Date/Type/Reason Admit Date/Time Sep 09, 2016 at 19:47 Initial Consult Date 09/13/16 Type of Consultation: HEMEONC Referring Provider: EMILIANO HENDRICKS 24 HR Interval Summary Free Text/Dictation no acute overnight events. OVERALL IMPROVING Exam/Review of Systems Vital Signs Vitals Vital Signs Date Time Temp Pulse Resp B/P Pulse Ox O2 Delivery O2 Flow Rate FiO2 09/29/16 17:58 1.0 09/29/16 16:13 67 09/29/16 12:39 98.0 18 165/67 97 09/29/16 11:06 Nasal Cannula Intake and Output 09/28/16 09/28/16 09/29/16 15:00 23:00 07:00 Intake Total 700 ml 150 ml Output Total 2450 ml Balance -1750 ml 150 ml Exam Constitutional: alert, frail, oriented, No distress Psych: nl mood/affect Head: normocephalic Eyes: PERRL ENMT: No mucosa pink and moist (dry) Neck: non-tender Respiratory: diminished breath sounds, No crackles/rales Cardiovascular: regular rate and rhythm, No murmurs/extra sounds Gastrointestinal: bowel sounds, non-tender, other (large umbilical hernia), soft Extremities: edema Neurological: lethargic Results Result Diagram: 09/27/16 0745 09/29/16 0552 Results 24 hrs Laboratory Tests Test 09/28/16 21:12 09/29/16 05:36 09/29/16 05:52 09/29/16 07:51 Bedside Glucose 125 94 78 Anion Gap 12 Blood Urea Nitrogen 23 H Calcium Level 8.3 L Carbon Dioxide Level 35 H Chloride Level 101 Creatinine 1.13 H Glucose Level 81 Potassium Level 3.6 Sodium Level 144 Test 09/29/16 11:40 09/29/16 17:05 Bedside Glucose 105 92 Medications Medications Current Medications Ondansetron HCl (Zofran Inj) 4 mg Q6H PRN IV NAUSEA AND/OR VOMITING Last administered on 09/10/16 23:03; Admin Dose 4 MG; Start 09/09/16 at 20:00 Nitroglycerin (Nitroglycerin (Sl Tab) 0.4 Mg) 1 tab Q5M PRN SL CHEST PAIN; Start 09/09/16 at 20:00 Acetaminophen (Tylenol Liquid) 650 mg Q6H PRN PO PAIN LEVEL 1-3 OR FEVER Last administered on 09/26/16 18:37; Admin Dose 650 MG; Start 09/09/16 at 20:00 Morphine Sulfate (morphine) 2 mg Q4H PRN IV PAIN LEVEL 7-10 Last administered on 09/26/16 00:37; Admin Dose 2 MG; Start 09/09/16 at 20:00 Lorazepam (Ativan) 1 mg Q2H PRN IV ANXIETY Last administered on 09/22/16 16:46 ; Admin Dose 1 MG; Start 09/09/16 at 20:00 Glucose (Glutose) 15 gm Q15M PRN PO DECREASED GLUCOSE; Start 09/09/16 at 20:30 Glucose (Glutose) 22.5 gm Q15M PRN PO DECREASED GLUCOSE; Start 09/09/16 at 20: 30 Dextrose (D50w Syringe) 25 ml Q15M PRN IV DECREASED GLUCOSE Last administered on 09/25/16 17:40; Admin Dose 25 ML; Start 09/09/16 at 20:30 Dextrose (D50w Syringe) 50 ml Q15M PRN IV DECREASED GLUCOSE; Start 09/09/16 at 20:30 Glucagon (Glucagen) 1 mg Q15M PRN IM DECREASED GLUCOSE; Start 09/09/16 at 20:30 Glucose (Glutose) 15 gm Q15M PRN BUCCAL DECREASED GLUCOSE; Start 09/09/16 at 20 :30 Aspirin (Aspirin) 81 mg DAILY PO Last administered on 09/29/16 08:36; Admin Dose 81 MG; Start 09/12/16 at 09:00 Insulin Aspart (Novolog Insulin Pen) NOVOLOG *MODERATE* ALGORI... Q4 SC Last administered on 09/28/16 08:04; Admin Dose 2 UNIT; Start 09/13/16 at 13:00 Hydralazine HCl (Apresoline) 10 mg Q4H PRN IV SBP >160 Last administered on 11:37; Admin Dose 10 MG; Start 09/17/16 at 07:00 Docusate Sodium (Colace Liquid Cup) 100 mg Q12 PO Last administered on 08:36; Admin Dose 100 MG; Start 09/17/16 at 09:00 Metoprolol Tartrate (Lopressor) 50 mg BID PO Last administered on 09/29/16 08: 36; Admin Dose 50 MG; Start 09/19/16 at 21:00 Heparin Sodium (Porcine) (Heparin (5000 Units/0.5 ml)) 5,000 unit BID SC Last administered on 09/29/16 08:35; Admin Dose 5,000 UNIT; Start 09/25/16 at 11:00 Hydralazine HCl (Apresoline) 100 mg Q8 PO Last administered on 09/29/16 14:24 ; Admin Dose 100 MG; Start 09/25/16 at 14:00 Insulin Glargine (Lantus) 10 unit DAILY@08 SC Last administered on 09/29/16 08 :34; Admin Dose 10 UNIT; Start 09/26/16 at 16:00 Famotidine (Pepcid) 20 mg DAILY NGT Last administered on 09/29/16 08:36; Admin Dose 20 MG; Start 09/28/16 at 09:00 Amlodipine Besylate (Norvasc) 5 mg BID PO ; Start 09/29/16 at 21:00 JEFF FRANK MD Sep 29, 2016 20:06
[2016-09-30] VITALS (12 sets, daily range): BP systolic 145–181; BP diastolic 65–74; PULSE 56–69; RESP 0–20
[2016-09-30] MEDS: INSULIN ASPART [NOVOLOG] 3 ML PEN SC SCH ×6 (01:00→21:00)
[2016-09-30] MEDS: hydrALAzine 20 MG INJ IV PRN (04:00)
[2016-09-30 07:19] LABS: ADD SCAN DIFF NO
[2016-09-30 07:26] LABS: BASOPHIL # 0.1 10^3/ul (0.0-0.1); BASOPHILS % 1.2 % (0.0-2.0); EOSINOPHILS # 0.2 10^3/ul (0.0-0.5); EOSINOPHILS % 2.3 % (0.0-7.0); HEMATOCRIT 36.4 % (37.0-47.0); HEMOGLOBIN 11.7 g/dl (12.0-16.0); LYMPHOCYTES # 2.3 10^3/ul (0.8-2.9); LYMPHOCYTES % 27.8 % (15.0-51.0); MEAN CORPUSCULAR HEMOGLOBIN 29.3 pg (29.0-33.0); MEAN CORPUSCULAR HGB CONC 32.1 g/dl (32.0-37.0); MEAN PLATELET VOLUME 11.7 fl (7.4-10.4); MONOCYTE # 0.9 10^3/ul (0.3-0.9); NEUTROPHIL # 4.8 10^3/ul (1.6-7.5); NEUTROPHILS % 57.2 % (39.0-77.0); PLATELET COUNT 334 10^3/UL (140-415); RED CELL DISTRIBUTION WIDTH 15.6 % (11.5-14.5); WHITE BLOOD COUNT 8.3 10^3/ul (4.8-10.8)
[2016-09-30 07:39] LABS: POTASSIUM 3.7 mmol/L (3.5-5.1)
[2016-09-30 07:41] LABS: CREATININE 1.09 mg/dl (0.44-1.00)
[2016-09-30 07:42] LABS: CALCIUM 8.1 mg/dl (8.4-10.2)
[2016-09-30 07:43] LABS: MAGNESIUM 2.1 mg/dl (1.7-2.5)
[2016-09-30] MEDS: ASPIRIN 81 MG TAB PO SCH (08:22)
[2016-09-30] MEDS: DOCUSATE SODIUM 10 MG/ML (10ML CUP) PO SCH ×2 (08:22→21:44)
[2016-09-30] MEDS: METOPROLOL 50 MG TAB PO SCH ×2 (08:23→21:46)
[2016-09-30] MEDS: AMLODIPINE 5 MG TAB PO SCH ×2 (08:23→21:45)
[2016-09-30] MEDS: FAMOTIDINE 20 MG TAB NGT SCH (08:23)
[2016-09-30] MEDS: HEPARIN 5,000 UNIT/0.5 ML SYG SC SCH ×2 (08:24→21:47)
[2016-09-30] MEDS: INSULIN GLARGINE [LANtus] 3 ML PEN SC SCH (09:40)
--- NOTE | 2016-09-30 10:14 | PN ---
Date/Time of Note Date/Time of Note DATE: 09/30/16 TIME: 10:12 Assessment/Plan VTE Prophylaxis VTE Prophylaxis Intervention: heparin Lines/Catheters IV Catheter Type (from Nrsg): Central Line Central line still needed: Yes Urinary Cath still in place: No Assessment/Plan Chief Complaint/Hosp Course Assessment/Plan: 75 yo female with a past medical history of type II DM, chronic pain who complains of weakness and decreased urinary output for the last several days, found with septic shock. 1. s/p Septic shock - 2/2 Ecoli UTI /Bacteremia - much improved 2. Acute renal failure r/o CKD- 2/2 to ATN from sepsis - improved 3. Type II DM - controlled on SSI 4. Metabolic / Lactic acidosis 2/2 #1: resolved 5. Acute Hypercapnic and Hypoxemic Resp failure - s/p self extubation - on BiPAP 6. NSTEMI versus elevated trop - CV monitoring. ECHO = EF 45-50 by echo this admit. 7. Thrombocytopenia likely associated with sepsis vs meds vs mild DIC: HIT antibody negative/ s/p FFP and platelet transfusion - resolved 8. Severe Iron deficiency: + occult test stool. No signs of GI bleeding presently. S/p EGD with gastritis findings only. s/p pRBC transfusion/ and IV iron infusion 9. Large periumbilical hernia predisposing to recurrent UTIs PLAN: - d/c jan, plan for ARU eval today - Wean oxygen as tolerated - Continue abx per ID - Continue serial labs and monitoring - Will need prompt outpt mgt of her hernia once stable for surgical repair. Family aware - Closely monitor hgb and platelet count on heparin PROPHYLAXIS: Pepcid / SCDS / heparin Problems: Subjective 24 Hr Interval Summary Free Text/Dictation No acute events overnight. Exam/Review of Systems Vital Signs Vitals Vital Signs Date Time Temp Pulse Resp B/P Pulse Ox O2 Delivery O2 Flow Rate FiO2 09/30/16 08:43 65 09/30/16 07:50 97.9 18 160/68 96 09/30/16 07:38 1.0 09/29/16 23:55 Nasal Cannula Intake and Output 09/29/16 09/29/16 09/30/16 15:00 23:00 07:00 Intake Total 800 ml 400 ml Balance 800 ml 400 ml Exam Constitutional: alert, frail, oriented, No distress Psych: nl mood/affect Head: normocephalic Eyes: PERRL ENMT: No mucosa pink and moist (dry) Neck: non-tender Respiratory: diminished breath sounds, No crackles/rales Cardiovascular: regular rate and rhythm, No murmurs/extra sounds Gastrointestinal: bowel sounds, non-tender, other (large umbilical hernia), soft Extremities: edema Neurological: lethargic Results Result Diagram: 09/30/16 0657 09/30/16 0657 Results 24 hrs Laboratory Tests Test 09/29/16 11:40 09/29/16 17:05 09/29/16 20:15 09/29/16 20:47 Bedside Glucose 105 92 69 L 111 Test 09/30/16 01:06 09/30/16 04:53 09/30/16 06:57 09/30/16 07:26 Bedside Glucose 95 77 86 Anion Gap 11 Basophils # 0.1 Basophils % 1.2 Blood Urea Nitrogen 21 H Calcium Level 8.1 L Carbon Dioxide Level 36 H Chloride Level 98 Creatinine 1.09 H Eosinophils # 0.2 Eosinophils % 2.3 Glucose Level 91 Hematocrit 36.4 L Hemoglobin 11.7 L Lymphocytes # 2.3 Lymphocytes % 27.8 Magnesium Level 2.1 Mean Corpuscular Hemoglobin 29.3 Mean Corpuscular Hemoglobin Concent 32.1 Mean Corpuscular Volume 91.0 Mean Platelet Volume 11.7 H Monocytes # 0.9 Monocytes % 11.0 Neutrophils # 4.8 Neutrophils % 57.2 Nucleated Red Blood Cells # 0.0 Nucleated Red Blood Cells % 0.0 Platelet Count 334 Potassium Level 3.7 Red Blood Count 4.00 L Red Cell Distribution Width 15.6 H Sodium Level 141 White Blood Count 8.3 Medications Medications Current Medications Ondansetron HCl (Zofran Inj) 4 mg Q6H PRN IV NAUSEA AND/OR VOMITING Last administered on 09/10/16 23:03; Admin Dose 4 MG; Start 09/09/16 at 20:00 Nitroglycerin (Nitroglycerin (Sl Tab) 0.4 Mg) 1 tab Q5M PRN SL CHEST PAIN; Start 09/09/16 at 20:00 Acetaminophen (Tylenol Liquid) 650 mg Q6H PRN PO PAIN LEVEL 1-3 OR FEVER Last administered on 09/26/16 18:37; Admin Dose 650 MG; Start 09/09/16 at 20:00 Morphine Sulfate (morphine) 2 mg Q4H PRN IV PAIN LEVEL 7-10 Last administered on 09/26/16 00:37; Admin Dose 2 MG; Start 09/09/16 at 20:00 Lorazepam (Ativan) 1 mg Q2H PRN IV ANXIETY Last administered on 09/22/16 16:46 ; Admin Dose 1 MG; Start 09/09/16 at 20:00 Glucose (Glutose) 15 gm Q15M PRN PO DECREASED GLUCOSE; Start 09/09/16 at 20:30 Glucose (Glutose) 22.5 gm Q15M PRN PO DECREASED GLUCOSE; Start 09/09/16 at 20: 30 Dextrose (D50w Syringe) 25 ml Q15M PRN IV DECREASED GLUCOSE Last administered on 09/25/16 17:40; Admin Dose 25 ML; Start 09/09/16 at 20:30 Dextrose (D50w Syringe) 50 ml Q15M PRN IV DECREASED GLUCOSE; Start 09/09/16 at 20:30 Glucagon (Glucagen) 1 mg Q15M PRN IM DECREASED GLUCOSE; Start 09/09/16 at 20:30 Glucose (Glutose) 15 gm Q15M PRN BUCCAL DECREASED GLUCOSE Last administered on 09/29/16 20:27; Admin Dose 15 GM; Start 09/09/16 at 20:30 Aspirin (Aspirin) 81 mg DAILY PO Last administered on 09/30/16 08:22; Admin Dose 81 MG; Start 09/12/16 at 09:00 Insulin Aspart (Novolog Insulin Pen) NOVOLOG *MODERATE* ALGORI... Q4 SC Last administered on 09/28/16 08:04; Admin Dose 2 UNIT; Start 09/13/16 at 13:00 Hydralazine HCl (Apresoline) 10 mg Q4H PRN IV SBP >160 Last administered on 04:00; Admin Dose 10 MG; Start 09/17/16 at 07:00 Docusate Sodium (Colace Liquid Cup) 100 mg Q12 PO Last administered on 08:22; Admin Dose 100 MG; Start 09/17/16 at 09:00 Metoprolol Tartrate (Lopressor) 50 mg BID PO Last administered on 09/30/16 08: 23; Admin Dose 50 MG; Start 09/19/16 at 21:00 Heparin Sodium (Porcine) (Heparin (5000 Units/0.5 ml)) 5,000 unit BID SC Last administered on 09/30/16 08:24; Admin Dose 5,000 UNIT; Start 09/25/16 at 11:00 Hydralazine HCl (Apresoline) 100 mg Q8 PO Last administered on 09/30/16 05:25 ; Admin Dose 100 MG; Start 09/25/16 at 14:00 Insulin Glargine (Lantus) 10 unit DAILY@08 SC Last administered on 09/30/16 09 :40; Admin Dose 10 UNIT; Start 09/26/16 at 16:00 Famotidine (Pepcid) 20 mg DAILY NGT Last administered on 09/30/16 08:23; Admin Dose 20 MG; Start 09/28/16 at 09:00 Amlodipine Besylate (Norvasc) 5 mg BID PO Last administered on 09/30/16 08:23 ; Admin Dose 5 MG; Start 09/29/16 at 21:00 MARIO ALBERTO CLAUDIO Sep 30, 2016 10:13
--- NOTE | 2016-09-30 11:35 | CONS ---
Date/Time of Note Date/Time of Note DATE: 09/30/16 TIME: 11:35 Assessment/Plan Assessment/Plan Chief Complaint/Hosp Course IMPRESSION: thrombocytopenia in pt with severe sepsis, exposed to multiple meds with pos thrombocytopenic effect, including VANCO, ZOSYN, HEPARIN,CEFAZOLIN- RESOLVED NO EVIDENCE OF DIC cont to monitor blood count closely HIPA- NEG PLATELET COUNT NORMALIZED Leukocytosis. REACTIVE MONITOR IMPROVING Anemia. C/W ACD MONITOR BLOOD COUNT CLOSELY TRANSFUSE NEEDED Severe Sepsis with septic shock 2/2 Ecoli UTI /Bacteremia Acute renal failure - 2/2 to ATN from sepsis Type II DM - Hyperglycemic on D5W Metabolic / Lactic acidosis 2/2 #1 Acute resp failure now ventilator dependent NSTEMI versus demand ischemia Positive troponin, assess significance, assess for true acute coronary syndrome. Metabolic acidosis respiratory failure, vent dependent incomplete database Thank you for allowing me to take part in the care of this patient. I will continue to follow along very closely with you. Further recommendations will be made as the patient progresses through her inpatient hospital clinical course. Problems: Consultation Date/Type/Reason Admit Date/Time Sep 09, 2016 at 19:47 Initial Consult Date 09/13/16 Type of Consultation: HEMEON Referring Provider: EMILIANO HENDRICKS 24 HR Interval Summary Free Text/Dictation all noted no new complains count stable Exam/Review of Systems Vital Signs Vitals Vital Signs Date Time Temp Pulse Resp B/P Pulse Ox O2 Delivery O2 Flow Rate FiO2 09/30/16 08:43 65 09/30/16 08:00 Nasal Cannula 2.0 09/30/16 07:50 97.9 18 160/68 96 Intake and Output 09/29/16 09/29/16 09/30/16 15:00 23:00 07:00 Intake Total 800 ml 400 ml Balance 800 ml 400 ml Exam CONSTITUTIONAL: No fevers, chills. PULMONARY: No sob CARDIOVASCULAR: No chest pain/palpitations GASTROINTESTINAL: No nausea/vomiting. GENITOURINARY: No hematuria/dysuria. MUSCULOSKELETAL: No myagias/arthalgias. PSYCHIATRIC: The patient denies depression. NEUROLOGIC: No weakness Constitutional: alert, oriented Psych: no complaints Head: normocephalic ENMT: mucosa pink and moist Neck: jvd (8-9 cm water) Respiratory: clear to auscultation Cardiovascular: regular rate and rhythm Gastrointestinal: non-tender, soft Musculoskeletal: muscle tone (normal) Extremities: edema (none) Neurological: other (No focal deficits) Results Result Diagram: 09/30/16 0657 09/30/16 0657 Results 24 hrs Laboratory Tests Test 09/29/16 11:40 09/29/16 17:05 09/29/16 20:15 09/29/16 20:47 Bedside Glucose 105 92 69 L 111 Test 09/30/16 01:06 09/30/16 04:53 09/30/16 06:57 09/30/16 07:26 Bedside Glucose 95 77 86 Anion Gap 11 Basophils # 0.1 Basophils % 1.2 Blood Urea Nitrogen 21 H Calcium Level 8.1 L Carbon Dioxide Level 36 H Chloride Level 98 Creatinine 1.09 H Eosinophils # 0.2 Eosinophils % 2.3 Glucose Level 91 Hematocrit 36.4 L Hemoglobin 11.7 L Lymphocytes # 2.3 Lymphocytes % 27.8 Magnesium Level 2.1 Mean Corpuscular Hemoglobin 29.3 Mean Corpuscular Hemoglobin Concent 32.1 Mean Corpuscular Volume 91.0 Mean Platelet Volume 11.7 H Monocytes # 0.9 Monocytes % 11.0 Neutrophils # 4.8 Neutrophils % 57.2 Nucleated Red Blood Cells # 0.0 Nucleated Red Blood Cells % 0.0 Platelet Count 334 Potassium Level 3.7 Red Blood Count 4.00 L Red Cell Distribution Width 15.6 H Sodium Level 141 White Blood Count 8.3 Medications Medications Current Medications Ondansetron HCl (Zofran Inj) 4 mg Q6H PRN IV NAUSEA AND/OR VOMITING Last administered on 09/10/16 23:03; Admin Dose 4 MG; Start 09/09/16 at 20:00 Nitroglycerin (Nitroglycerin (Sl Tab) 0.4 Mg) 1 tab Q5M PRN SL CHEST PAIN; Start 09/09/16 at 20:00 Acetaminophen (Tylenol Liquid) 650 mg Q6H PRN PO PAIN LEVEL 1-3 OR FEVER Last administered on 09/26/16 18:37; Admin Dose 650 MG; Start 09/09/16 at 20:00 Morphine Sulfate (morphine) 2 mg Q4H PRN IV PAIN LEVEL 7-10 Last administered on 09/26/16 00:37; Admin Dose 2 MG; Start 09/09/16 at 20:00 Lorazepam (Ativan) 1 mg Q2H PRN IV ANXIETY Last administered on 09/22/16 16:46 ; Admin Dose 1 MG; Start 09/09/16 at 20:00 Glucose (Glutose) 15 gm Q15M PRN PO DECREASED GLUCOSE; Start 09/09/16 at 20:30 Glucose (Glutose) 22.5 gm Q15M PRN PO DECREASED GLUCOSE; Start 09/09/16 at 20: 30 Dextrose (D50w Syringe) 25 ml Q15M PRN IV DECREASED GLUCOSE Last administered on 09/25/16 17:40; Admin Dose 25 ML; Start 09/09/16 at 20:30 Dextrose (D50w Syringe) 50 ml Q15M PRN IV DECREASED GLUCOSE; Start 09/09/16 at 20:30 Glucagon (Glucagen) 1 mg Q15M PRN IM DECREASED GLUCOSE; Start 09/09/16 at 20:30 Glucose (Glutose) 15 gm Q15M PRN BUCCAL DECREASED GLUCOSE Last administered on 09/29/16 20:27; Admin Dose 15 GM; Start 09/09/16 at 20:30 Aspirin (Aspirin) 81 mg DAILY PO Last administered on 09/30/16 08:22; Admin Dose 81 MG; Start 09/12/16 at 09:00 Insulin Aspart (Novolog Insulin Pen) NOVOLOG *MODERATE* ALGORI... Q4 SC Last administered on 09/28/16 08:04; Admin Dose 2 UNIT; Start 09/13/16 at 13:00 Hydralazine HCl (Apresoline) 10 mg Q4H PRN IV SBP >160 Last administered on 04:00; Admin Dose 10 MG; Start 09/17/16 at 07:00 Docusate Sodium (Colace Liquid Cup) 100 mg Q12 PO Last administered on 08:22; Admin Dose 100 MG; Start 09/17/16 at 09:00 Metoprolol Tartrate (Lopressor) 50 mg BID PO Last administered on 09/30/16 08: 23; Admin Dose 50 MG; Start 09/19/16 at 21:00 Heparin Sodium (Porcine) (Heparin (5000 Units/0.5 ml)) 5,000 unit BID SC Last administered on 09/30/16 08:24; Admin Dose 5,000 UNIT; Start 09/25/16 at 11:00 Hydralazine HCl (Apresoline) 100 mg Q8 PO Last administered on 09/30/16 05:25 ; Admin Dose 100 MG; Start 09/25/16 at 14:00 Insulin Glargine (Lantus) 10 unit DAILY@08 SC Last administered on 09/30/16 09 :40; Admin Dose 10 UNIT; Start 09/26/16 at 16:00 Famotidine (Pepcid) 20 mg DAILY NGT Last administered on 09/30/16 08:23; Admin Dose 20 MG; Start 09/28/16 at 09:00 Amlodipine Besylate (Norvasc) 5 mg BID PO Last administered on 09/30/16 08:23 ; Admin Dose 5 MG; Start 09/29/16 at 21:00 JEFF FRANK MD Sep 30, 2016 11:35
--- NOTE | 2016-09-30 13:04 | CONS ---
Date/Time of Note Date/Time of Note DATE: 09/30/16 TIME: 13:02 Assessment/Plan Assessment/Plan Chief Complaint/Hosp Course SUBJECTIVE: No acute events. The patient is alert, s/o abdominal pain earlier , looks comfortable, no fevers INDWELLINGS: Alaniz catheter, right IJ triple-lumen catheter. PHYSICAL EXAMINATION: GENERAL: Fragile, elderly woman who is awake, in no distress. HEENT: Head atraumatic, normocephalic. Sclerae anicteric. Buccal mucosa dry. NECK: Supple. CHEST: Rise symmetrical. Breath sounds diminished to bases. HEART: S1, S2. ABDOMEN: Soft. Bowel tones present. EXTREMITIES: Without cyanosis, trace ble edema. ASSESSMENT: 1. Status post severe sepsis with shock. 2. Status post respiratory failure. 3. Status post Escherichia coli urinary tract infection with bacteremia. 4. Renal failure, improving. 5. Anemia. 6. S/p encephalopathy. PLAN: Stable off antibiotics. Continue present care, aspiration precautions. Follow recommendations of consultants and panculture p.r.n. yovanny pt/family Problems: Consultation Date/Type/Reason Admit Date/Time Sep 09, 2016 at 19:47 Initial Consult Date 09/13/16 Type of Consultation: ID Referring Provider: EMILIANO HENDRICKS Exam/Review of Systems Vital Signs Vitals Vital Signs Date Time Temp Pulse Resp B/P Pulse Ox O2 Delivery O2 Flow Rate FiO2 09/30/16 12:41 63 09/30/16 11:37 98.5 20 157/66 98 09/30/16 08:00 Nasal Cannula 2.0 Intake and Output 09/29/16 09/29/16 09/30/16 15:00 23:00 07:00 Intake Total 800 ml 400 ml Balance 800 ml 400 ml Results Result Diagram: 09/30/16 0657 09/30/16 0657 Results 24 hrs Laboratory Tests Test 09/29/16 17:05 09/29/16 20:15 09/29/16 20:47 09/30/16 01:06 Bedside Glucose 92 69 L 111 95 Test 09/30/16 04:53 09/30/16 06:57 09/30/16 07:26 09/30/16 11:52 Bedside Glucose 77 86 93 Anion Gap 11 Basophils # 0.1 Basophils % 1.2 Blood Urea Nitrogen 21 H Calcium Level 8.1 L Carbon Dioxide Level 36 H Chloride Level 98 Creatinine 1.09 H Eosinophils # 0.2 Eosinophils % 2.3 Glucose Level 91 Hematocrit 36.4 L Hemoglobin 11.7 L Lymphocytes # 2.3 Lymphocytes % 27.8 Magnesium Level 2.1 Mean Corpuscular Hemoglobin 29.3 Mean Corpuscular Hemoglobin Concent 32.1 Mean Corpuscular Volume 91.0 Mean Platelet Volume 11.7 H Monocytes # 0.9 Monocytes % 11.0 Neutrophils # 4.8 Neutrophils % 57.2 Nucleated Red Blood Cells # 0.0 Nucleated Red Blood Cells % 0.0 Platelet Count 334 Potassium Level 3.7 Red Blood Count 4.00 L Red Cell Distribution Width 15.6 H Sodium Level 141 White Blood Count 8.3 Medications Medications Current Medications Ondansetron HCl (Zofran Inj) 4 mg Q6H PRN IV NAUSEA AND/OR VOMITING Last administered on 09/10/16 23:03; Admin Dose 4 MG; Start 09/09/16 at 20:00 Nitroglycerin (Nitroglycerin (Sl Tab) 0.4 Mg) 1 tab Q5M PRN SL CHEST PAIN; Start 09/09/16 at 20:00 Acetaminophen (Tylenol Liquid) 650 mg Q6H PRN PO PAIN LEVEL 1-3 OR FEVER Last administered on 09/26/16 18:37; Admin Dose 650 MG; Start 09/09/16 at 20:00 Morphine Sulfate (morphine) 2 mg Q4H PRN IV PAIN LEVEL 7-10 Last administered on 09/26/16 00:37; Admin Dose 2 MG; Start 09/09/16 at 20:00 Lorazepam (Ativan) 1 mg Q2H PRN IV ANXIETY Last administered on 09/22/16 16:46 ; Admin Dose 1 MG; Start 09/09/16 at 20:00 Glucose (Glutose) 15 gm Q15M PRN PO DECREASED GLUCOSE; Start 09/09/16 at 20:30 Glucose (Glutose) 22.5 gm Q15M PRN PO DECREASED GLUCOSE; Start 09/09/16 at 20: 30 Dextrose (D50w Syringe) 25 ml Q15M PRN IV DECREASED GLUCOSE Last administered on 09/25/16 17:40; Admin Dose 25 ML; Start 09/09/16 at 20:30 Dextrose (D50w Syringe) 50 ml Q15M PRN IV DECREASED GLUCOSE; Start 09/09/16 at 20:30 Glucagon (Glucagen) 1 mg Q15M PRN IM DECREASED GLUCOSE; Start 09/09/16 at 20:30 Glucose (Glutose) 15 gm Q15M PRN BUCCAL DECREASED GLUCOSE Last administered on 09/29/16 20:27; Admin Dose 15 GM; Start 09/09/16 at 20:30 Aspirin (Aspirin) 81 mg DAILY PO Last administered on 09/30/16 08:22; Admin Dose 81 MG; Start 09/12/16 at 09:00 Insulin Aspart (Novolog Insulin Pen) NOVOLOG *MODERATE* ALGORI... Q4 SC Last administered on 09/28/16 08:04; Admin Dose 2 UNIT; Start 09/13/16 at 13:00 Hydralazine HCl (Apresoline) 10 mg Q4H PRN IV SBP >160 Last administered on 04:00; Admin Dose 10 MG; Start 09/17/16 at 07:00 Docusate Sodium (Colace Liquid Cup) 100 mg Q12 PO Last administered on 08:22; Admin Dose 100 MG; Start 09/17/16 at 09:00 Metoprolol Tartrate (Lopressor) 50 mg BID PO Last administered on 09/30/16 08: 23; Admin Dose 50 MG; Start 09/19/16 at 21:00 Heparin Sodium (Porcine) (Heparin (5000 Units/0.5 ml)) 5,000 unit BID SC Last administered on 09/30/16 08:24; Admin Dose 5,000 UNIT; Start 09/25/16 at 11:00 Hydralazine HCl (Apresoline) 100 mg Q8 PO Last administered on 09/30/16 05:25 ; Admin Dose 100 MG; Start 09/25/16 at 14:00 Insulin Glargine (Lantus) 10 unit DAILY@08 SC Last administered on 09/30/16 09 :40; Admin Dose 10 UNIT; Start 09/26/16 at 16:00 Famotidine (Pepcid) 20 mg DAILY NGT Last administered on 09/30/16 08:23; Admin Dose 20 MG; Start 09/28/16 at 09:00 Amlodipine Besylate (Norvasc) 5 mg BID PO Last administered on 09/30/16 08:23 ; Admin Dose 5 MG; Start 09/29/16 at 21:00 CHLOE MONROY NP Sep 30, 2016 13:04
--- NOTE | 2016-09-30 17:03 | CONS ---
Date/Time of Note Date/Time of Note DATE: 09/30/16 TIME: 17:01 Assessment/Plan Assessment/Plan Chief Complaint/Hosp Course IMPRESSION: 1. Positive troponin, assess significance, assess for true acute coronary syndrome.-now downtrending in setting ongoing renal failure 2. Hypotension, shock state. Rule out cardiac etiology-EF 45-50 by echo this admit-improved off of pressors 3. Abnormal electrocardiogram, assess for acute coronary syndrome. 4. Respiratory failure s/p extubation-improving off of BIPAP currently 5. Leukocytosis. 6. Anemia. 7. Thrombocytopenia-improved 8. Renal failure-ongoing/stable to slightly improved 9. Bacteremia with gram negative rods. 10.CHF-systolic and diastolic acute EF 45-50 by echo this admit REcc: -Tele -continue abx's and f/u ca data -Continue asa -Continue BB/hydralazine/CCB and follow BP closely -Follow volume status closely with intermittent spot dosing of lasix -Continue bronchodilators Problems: Consultation Date/Type/Reason Admit Date/Time Sep 09, 2016 at 19:47 Initial Consult Date 09/11/16 Type of Consultation: Cardiology Reason for Consultation positive troponin Referring Provider: EMILIANO HENDRICKS Exam/Review of Systems Vital Signs Vitals Vital Signs Date Time Temp Pulse Resp B/P Pulse Ox O2 Delivery O2 Flow Rate FiO2 09/30/16 16:09 65 09/30/16 16:06 97.6 20 152/68 96 09/30/16 08:00 Nasal Cannula 2.0 Intake and Output 09/29/16 09/29/16 09/30/16 15:00 23:00 07:00 Intake Total 800 ml 400 ml Balance 800 ml 400 ml Exam Review of Systems: CONSTITUTIONAL: No fevers, chills. PULMONARY: No sob CARDIOVASCULAR: No chest pain/palpitations GASTROINTESTINAL: No nausea/vomiting. GENITOURINARY: No hematuria/dysuria. MUSCULOSKELETAL: No myagias/arthalgias. PSYCHIATRIC: The patient denies depression. NEUROLOGIC: lethargic Constitutional: alert Psych: no complaints Head: normocephalic ENMT: mucosa pink and moist Neck: jvd (8 cm water), supple Cardiovascular: regular rate and rhythm Gastrointestinal: non-tender, soft Musculoskeletal: muscle tone (normal) Extremities: edema (none) Neurological: other (No focal deficits) Results Result Diagram: 09/30/16 0657 09/30/16 0657 Results 24 hrs Laboratory Tests Test 09/29/16 17:05 09/29/16 20:15 09/29/16 20:47 09/30/16 01:06 Bedside Glucose 92 69 L 111 95 Test 09/30/16 04:53 09/30/16 06:57 09/30/16 07:26 09/30/16 11:52 Bedside Glucose 77 86 93 Anion Gap 11 Basophils # 0.1 Basophils % 1.2 Blood Urea Nitrogen 21 H Calcium Level 8.1 L Carbon Dioxide Level 36 H Chloride Level 98 Creatinine 1.09 H Eosinophils # 0.2 Eosinophils % 2.3 Glucose Level 91 Hematocrit 36.4 L Hemoglobin 11.7 L Lymphocytes # 2.3 Lymphocytes % 27.8 Magnesium Level 2.1 Mean Corpuscular Hemoglobin 29.3 Mean Corpuscular Hemoglobin Concent 32.1 Mean Corpuscular Volume 91.0 Mean Platelet Volume 11.7 H Monocytes # 0.9 Monocytes % 11.0 Neutrophils # 4.8 Neutrophils % 57.2 Nucleated Red Blood Cells # 0.0 Nucleated Red Blood Cells % 0.0 Platelet Count 334 Potassium Level 3.7 Red Blood Count 4.00 L Red Cell Distribution Width 15.6 H Sodium Level 141 White Blood Count 8.3 Test 09/30/16 16:55 Bedside Glucose 82 Medications Medications Current Medications Ondansetron HCl (Zofran Inj) 4 mg Q6H PRN IV NAUSEA AND/OR VOMITING Last administered on 09/10/16 23:03; Admin Dose 4 MG; Start 09/09/16 at 20:00 Nitroglycerin (Nitroglycerin (Sl Tab) 0.4 Mg) 1 tab Q5M PRN SL CHEST PAIN; Start 09/09/16 at 20:00 Acetaminophen (Tylenol Liquid) 650 mg Q6H PRN PO PAIN LEVEL 1-3 OR FEVER Last administered on 09/26/16 18:37; Admin Dose 650 MG; Start 09/09/16 at 20:00 Morphine Sulfate (morphine) 2 mg Q4H PRN IV PAIN LEVEL 7-10 Last administered on 09/26/16 00:37; Admin Dose 2 MG; Start 09/09/16 at 20:00 Lorazepam (Ativan) 1 mg Q2H PRN IV ANXIETY Last administered on 09/22/16 16:46 ; Admin Dose 1 MG; Start 09/09/16 at 20:00 Glucose (Glutose) 15 gm Q15M PRN PO DECREASED GLUCOSE; Start 09/09/16 at 20:30 Glucose (Glutose) 22.5 gm Q15M PRN PO DECREASED GLUCOSE; Start 09/09/16 at 20: 30 Dextrose (D50w Syringe) 25 ml Q15M PRN IV DECREASED GLUCOSE Last administered on 09/25/16 17:40; Admin Dose 25 ML; Start 09/09/16 at 20:30 Dextrose (D50w Syringe) 50 ml Q15M PRN IV DECREASED GLUCOSE; Start 09/09/16 at 20:30 Glucagon (Glucagen) 1 mg Q15M PRN IM DECREASED GLUCOSE; Start 09/09/16 at 20:30 Glucose (Glutose) 15 gm Q15M PRN BUCCAL DECREASED GLUCOSE Last administered on 09/29/16 20:27; Admin Dose 15 GM; Start 09/09/16 at 20:30 Aspirin (Aspirin) 81 mg DAILY PO Last administered on 09/30/16 08:22; Admin Dose 81 MG; Start 09/12/16 at 09:00 Insulin Aspart (Novolog Insulin Pen) NOVOLOG *MODERATE* ALGORI... Q4 SC Last administered on 09/28/16 08:04; Admin Dose 2 UNIT; Start 09/13/16 at 13:00 Hydralazine HCl (Apresoline) 10 mg Q4H PRN IV SBP >160 Last administered on 04:00; Admin Dose 10 MG; Start 09/17/16 at 07:00 Docusate Sodium (Colace Liquid Cup) 100 mg Q12 PO Last administered on 08:22; Admin Dose 100 MG; Start 09/17/16 at 09:00 Metoprolol Tartrate (Lopressor) 50 mg BID PO Last administered on 09/30/16 08: 23; Admin Dose 50 MG; Start 09/19/16 at 21:00 Heparin Sodium (Porcine) (Heparin (5000 Units/0.5 ml)) 5,000 unit BID SC Last administered on 09/30/16 08:24; Admin Dose 5,000 UNIT; Start 09/25/16 at 11:00 Hydralazine HCl (Apresoline) 100 mg Q8 PO Last administered on 09/30/16 14:01 ; Admin Dose 100 MG; Start 09/25/16 at 14:00 Insulin Glargine (Lantus) 10 unit DAILY@08 SC Last administered on 09/30/16 09 :40; Admin Dose 10 UNIT; Start 09/26/16 at 16:00 Famotidine (Pepcid) 20 mg DAILY NGT Last administered on 09/30/16 08:23; Admin Dose 20 MG; Start 09/28/16 at 09:00 Amlodipine Besylate (Norvasc) 5 mg BID PO Last administered on 09/30/16 08:23 ; Admin Dose 5 MG; Start 09/29/16 at 21:00 ALLISON CONTRERAS Sep 30, 2016 17:03
--- NOTE | 2016-09-30 23:29 | PN ---
Date/Time of Note Date/Time of Note DATE: 09/30/16 TIME: 23:28 Assessment/Plan VTE Prophylaxis VTE Prophylaxis Intervention: other Lines/Catheters IV Catheter Type (from [facility]): Central Line Central line still needed: Yes Urinary Cath still in place: No Assessment/Plan Chief Complaint/Hosp Course IMPRESSION: 1. Patient has SHALOM BETTER 2. S/P ATN 3. S/P vdrf NOW ON BIPAP 4.. The patient has Escherichia coli bacteremia, E. coli urinary tract infection. 5 hypernatremia better 6 pleural effusion on lasix 7 hypernatremia po water BETTER PLAN CK BMP lytes stable Problems: Subjective 24 Hr Interval Summary Cardiovascular: no complaints Gastrointestinal: no complaints Genitourinary: no complaints Exam/Review of Systems Vital Signs Vitals Vital Signs Date Time Temp Pulse Resp B/P Pulse Ox O2 Delivery O2 Flow Rate FiO2 09/30/16 21:52 1.0 09/30/16 20:00 69 09/30/16 20:00 98.5 18 169/71 99 09/30/16 19:49 Nasal Cannula Intake and Output 09/29/16 09/29/16 09/30/16 15:00 23:00 07:00 Intake Total 800 ml 400 ml Balance 800 ml 400 ml Exam Neck: supple Respiratory: clear to auscultation Cardiovascular: regular rate and rhythm Gastrointestinal: soft Musculoskeletal: nl extremities to inspection Extremities: normal pulses Results Result Diagram: 09/30/16 0657 09/30/16 0657 Results 24 hrs Laboratory Tests Test 09/30/16 01:06 09/30/16 04:53 09/30/16 06:57 09/30/16 07:26 Bedside Glucose 95 77 86 Anion Gap 11 Basophils # 0.1 Basophils % 1.2 Blood Urea Nitrogen 21 H Calcium Level 8.1 L Carbon Dioxide Level 36 H Chloride Level 98 Creatinine 1.09 H Eosinophils # 0.2 Eosinophils % 2.3 Glucose Level 91 Hematocrit 36.4 L Hemoglobin 11.7 L Lymphocytes # 2.3 Lymphocytes % 27.8 Magnesium Level 2.1 Mean Corpuscular Hemoglobin 29.3 Mean Corpuscular Hemoglobin Concent 32.1 Mean Corpuscular Volume 91.0 Mean Platelet Volume 11.7 H Monocytes # 0.9 Monocytes % 11.0 Neutrophils # 4.8 Neutrophils % 57.2 Nucleated Red Blood Cells # 0.0 Nucleated Red Blood Cells % 0.0 Platelet Count 334 Potassium Level 3.7 Red Blood Count 4.00 L Red Cell Distribution Width 15.6 H Sodium Level 141 White Blood Count 8.3 Test 09/30/16 11:52 09/30/16 16:55 09/30/16 21:09 Bedside Glucose 93 82 87 Medications Medications Current Medications Ondansetron HCl (Zofran Inj) 4 mg Q6H PRN IV NAUSEA AND/OR VOMITING Last administered on 09/10/16 23:03; Admin Dose 4 MG; Start 09/09/16 at 20:00 Nitroglycerin (Nitroglycerin (Sl Tab) 0.4 Mg) 1 tab Q5M PRN SL CHEST PAIN; Start 09/09/16 at 20:00 Acetaminophen (Tylenol Liquid) 650 mg Q6H PRN PO PAIN LEVEL 1-3 OR FEVER Last administered on 09/26/16 18:37; Admin Dose 650 MG; Start 09/09/16 at 20:00 Morphine Sulfate (morphine) 2 mg Q4H PRN IV PAIN LEVEL 7-10 Last administered on 09/26/16 00:37; Admin Dose 2 MG; Start 09/09/16 at 20:00 Lorazepam (Ativan) 1 mg Q2H PRN IV ANXIETY Last administered on 09/22/16 16:46 ; Admin Dose 1 MG; Start 09/09/16 at 20:00 Glucose (Glutose) 15 gm Q15M PRN PO DECREASED GLUCOSE; Start 09/09/16 at 20:30 Glucose (Glutose) 22.5 gm Q15M PRN PO DECREASED GLUCOSE; Start 09/09/16 at 20: 30 Dextrose (D50w Syringe) 25 ml Q15M PRN IV DECREASED GLUCOSE Last administered on 09/25/16 17:40; Admin Dose 25 ML; Start 09/09/16 at 20:30 Dextrose (D50w Syringe) 50 ml Q15M PRN IV DECREASED GLUCOSE; Start 09/09/16 at 20:30 Glucagon (Glucagen) 1 mg Q15M PRN IM DECREASED GLUCOSE; Start 09/09/16 at 20:30 Glucose (Glutose) 15 gm Q15M PRN BUCCAL DECREASED GLUCOSE Last administered on 09/29/16 20:27; Admin Dose 15 GM; Start 09/09/16 at 20:30 Aspirin (Aspirin) 81 mg DAILY PO Last administered on 09/30/16 08:22; Admin Dose 81 MG; Start 09/12/16 at 09:00 Insulin Aspart (Novolog Insulin Pen) NOVOLOG *MODERATE* ALGORI... Q4 SC Last administered on 09/28/16 08:04; Admin Dose 2 UNIT; Start 09/13/16 at 13:00 Hydralazine HCl (Apresoline) 10 mg Q4H PRN IV SBP >160 Last administered on 04:00; Admin Dose 10 MG; Start 09/17/16 at 07:00 Docusate Sodium (Colace Liquid Cup) 100 mg Q12 PO Last administered on 21:44; Admin Dose 100 MG; Start 09/17/16 at 09:00 Metoprolol Tartrate (Lopressor) 50 mg BID PO Last administered on 09/30/16 21: 46; Admin Dose 50 MG; Start 09/19/16 at 21:00 Heparin Sodium (Porcine) (Heparin (5000 Units/0.5 ml)) 5,000 unit BID SC Last administered on 09/30/16 21:47; Admin Dose 5,000 UNIT; Start 09/25/16 at 11:00 Hydralazine HCl (Apresoline) 100 mg Q8 PO Last administered on 09/30/16 21:45 ; Admin Dose 100 MG; Start 09/25/16 at 14:00 Insulin Glargine (Lantus) 10 unit DAILY@08 SC Last administered on 09/30/16 09 :40; Admin Dose 10 UNIT; Start 09/26/16 at 16:00 Famotidine (Pepcid) 20 mg DAILY NGT Last administered on 09/30/16 08:23; Admin Dose 20 MG; Start 09/28/16 at 09:00 Amlodipine Besylate (Norvasc) 5 mg BID PO Last administered on 09/30/16 21:45 ; Admin Dose 5 MG; Start 09/29/16 at 21:00 QUITA SCHOFIELD MD Sep 30, 2016 23:29
[2016-10-01] VITALS (13 sets, daily range): BP systolic 140–162; BP diastolic 63–71; PULSE 56–67; RESP 18–20
[2016-10-01] MEDS: INSULIN ASPART [NOVOLOG] 3 ML PEN SC SCH ×6 (01:00→21:00)
[2016-10-01 07:45] LABS: ADD SCAN DIFF NO
[2016-10-01 07:59] LABS: BASOPHIL # 0.1 10^3/ul (0.0-0.1); BASOPHILS % 1.1 % (0.0-2.0); EOSINOPHILS # 0.2 10^3/ul (0.0-0.5); EOSINOPHILS % 2.4 % (0.0-7.0); HEMATOCRIT 37.8 % (37.0-47.0); HEMOGLOBIN 11.9 g/dl (12.0-16.0); LYMPHOCYTES # 2.2 10^3/ul (0.8-2.9); LYMPHOCYTES % 25.3 % (15.0-51.0); MEAN CORPUSCULAR HEMOGLOBIN 28.8 pg (29.0-33.0); MEAN CORPUSCULAR HGB CONC 31.5 g/dl (32.0-37.0); MEAN CORPUSCULAR VOLUME 91.5 fl (82.0-101.0); MEAN PLATELET VOLUME 12.3 fl (7.4-10.4); MONOCYTE # 0.9 10^3/ul (0.3-0.9); MONOCYTES % 10.4 % (0.0-11.0); NEUTROPHIL # 5.3 10^3/ul (1.6-7.5); NEUTROPHILS % 60.5 % (39.0-77.0); PLATELET COUNT 332 10^3/UL (140-415); RED BLOOD COUNT 4.13 10^6/ul (4.20-5.40); RED CELL DISTRIBUTION WIDTH 15.9 % (11.5-14.5); WHITE BLOOD COUNT 8.8 10^3/ul (4.8-10.8)
[2016-10-01 08:19] LABS: POTASSIUM 3.5 mmol/L (3.5-5.1)
[2016-10-01 08:22] LABS: CALCIUM 8.1 mg/dl (8.4-10.2); CREATININE 0.98 mg/dl (0.44-1.00)
[2016-10-01] MEDS: ASPIRIN 81 MG TAB PO SCH (08:22)
[2016-10-01] MEDS: AMLODIPINE 5 MG TAB PO SCH ×2 (08:22→21:29)
[2016-10-01] MEDS: DOCUSATE SODIUM 10 MG/ML (10ML CUP) PO SCH ×2 (08:22→21:26)
[2016-10-01] MEDS: FAMOTIDINE 20 MG TAB NGT SCH (08:22)
[2016-10-01] MEDS: METOPROLOL 50 MG TAB PO SCH ×2 (08:23→21:30)
[2016-10-01] MEDS: INSULIN GLARGINE [LANtus] 3 ML PEN SC SCH (08:24)
[2016-10-01] MEDS: HEPARIN 5,000 UNIT/0.5 ML SYG SC SCH ×2 (08:24→21:35)
--- NOTE | 2016-10-01 11:08 | CONS ---
Date/Time of Note Date/Time of Note DATE: 10/01/16 TIME: 11:06 Assessment/Plan Assessment/Plan Additional Assessment/Plan 1. Positive troponin, assess significance, assess for true acute coronary syndrome.-now downtrending in setting ongoing renal failure - NO INTERVENTION PLANNED NOW 2. Hypotension, shock state. Rule out cardiac etiology-EF 45-50 by echo this admit-improved off of pressors - BP better 3. Abnormal electrocardiogram, assess for acute coronary syndrome. 4. Respiratory failure s/p extubation-improving off of BIPAP currently - much better resp status 5. Leukocytosis- on anti-bx, con't Rx 6. Anemia. 7. Thrombocytopenia-improved 8. Renal failure-ongoing/stable to slightly improved 9. Bacteremia with gram negative rods - traetment per primary 10.CHF-systolic and diastolic acute EF 45-50 by echo this admit - chronic diast CHF Consultation Date/Type/Reason Admit Date/Time Sep 09, 2016 at 19:47 Initial Consult Date 09/11/16 Type of Consultation: Cardiology Referring Provider: EMILIANO HENDRICKS 24 HR Interval Summary Free Text/Dictation NO acute events. BP in good range - con't to adjust Rx as needed ROS: No fever, no chills, no nausea, no vomiting, no diarrhea/constipation No recent weight changes No chest pain, no PND, no orthopnea No dizziness, blurred vision No thirst, no heat or cold intolerance Exam/Review of Systems Vital Signs Vitals Vital Signs Date Time Temp Pulse Resp B/P Pulse Ox O2 Delivery O2 Flow Rate FiO2 10/01/16 08:37 63 10/01/16 07:43 97.9 20 148/69 97 10/01/16 07:35 Nasal Cannula 2.0 Intake and Output 09/30/16 09/30/16 10/01/16 15:00 23:00 07:00 Intake Total 960 ml Balance 960 ml Exam General: WN/WD/NAD, AOx 1-2 HEENT: Unicetric/atraumatic/EOMI (follow commands) NECK: JVD elevated, no thyromegaly Lymph: no lymphadenopathy HEART: regular with no S3, II/ systolic murmur at apex LUNGS: Coarse sounds ABD: soft, NT, ND, +BS : Intact Neuro: non focal SKIN: chronic changes EXT: trace edema Results Result Diagram: 10/01/16 0630 10/01/16 0630 Results 24 hrs Laboratory Tests Test 09/30/16 11:52 09/30/16 16:55 09/30/16 21:09 10/01/16 01:52 Bedside Glucose 93 82 87 66 L Test 10/01/16 02:38 10/01/16 05:34 10/01/16 06:30 10/01/16 07:24 Bedside Glucose 111 86 114 Anion Gap 14 Basophils # 0.1 Basophils % 1.1 Blood Urea Nitrogen 19 Calcium Level 8.1 L Carbon Dioxide Level 31 Chloride Level 99 Creatinine 0.98 Eosinophils # 0.2 Eosinophils % 2.4 Glucose Level 73 Hematocrit 37.8 Hemoglobin 11.9 L Lymphocytes # 2.2 Lymphocytes % 25.3 Mean Corpuscular Hemoglobin 28.8 L Mean Corpuscular Hemoglobin Concent 31.5 L Mean Corpuscular Volume 91.5 Mean Platelet Volume 12.3 H Monocytes # 0.9 Monocytes % 10.4 Neutrophils # 5.3 Neutrophils % 60.5 Nucleated Red Blood Cells # 0.0 Nucleated Red Blood Cells % 0.0 Platelet Count 332 Potassium Level 3.5 Red Blood Count 4.13 L Red Cell Distribution Width 15.9 H Sodium Level 140 White Blood Count 8.8 Medications Medications Current Medications Ondansetron HCl (Zofran Inj) 4 mg Q6H PRN IV NAUSEA AND/OR VOMITING Last administered on 09/10/16 23:03; Admin Dose 4 MG; Start 09/09/16 at 20:00 Nitroglycerin (Nitroglycerin (Sl Tab) 0.4 Mg) 1 tab Q5M PRN SL CHEST PAIN; Start 09/09/16 at 20:00 Acetaminophen (Tylenol Liquid) 650 mg Q6H PRN PO PAIN LEVEL 1-3 OR FEVER Last administered on 09/26/16 18:37; Admin Dose 650 MG; Start 09/09/16 at 20:00 Morphine Sulfate (morphine) 2 mg Q4H PRN IV PAIN LEVEL 7-10 Last administered on 09/26/16 00:37; Admin Dose 2 MG; Start 09/09/16 at 20:00 Lorazepam (Ativan) 1 mg Q2H PRN IV ANXIETY Last administered on 09/22/16 16:46 ; Admin Dose 1 MG; Start 09/09/16 at 20:00 Glucose (Glutose) 15 gm Q15M PRN PO DECREASED GLUCOSE; Start 09/09/16 at 20:30 Glucose (Glutose) 22.5 gm Q15M PRN PO DECREASED GLUCOSE; Start 09/09/16 at 20: 30 Dextrose (D50w Syringe) 25 ml Q15M PRN IV DECREASED GLUCOSE Last administered on 09/25/16 17:40; Admin Dose 25 ML; Start 09/09/16 at 20:30 Dextrose (D50w Syringe) 50 ml Q15M PRN IV DECREASED GLUCOSE; Start 09/09/16 at 20:30 Glucagon (Glucagen) 1 mg Q15M PRN IM DECREASED GLUCOSE; Start 09/09/16 at 20:30 Glucose (Glutose) 15 gm Q15M PRN BUCCAL DECREASED GLUCOSE Last administered on 09/29/16 20:27; Admin Dose 15 GM; Start 09/09/16 at 20:30 Aspirin (Aspirin) 81 mg DAILY PO Last administered on 10/01/16 08:22; Admin Dose 81 MG; Start 09/12/16 at 09:00 Insulin Aspart (Novolog Insulin Pen) NOVOLOG *MODERATE* ALGORI... Q4 SC Last administered on 09/28/16 08:04; Admin Dose 2 UNIT; Start 09/13/16 at 13:00 Hydralazine HCl (Apresoline) 10 mg Q4H PRN IV SBP >160 Last administered on 04:00; Admin Dose 10 MG; Start 09/17/16 at 07:00 Docusate Sodium (Colace Liquid Cup) 100 mg Q12 PO Last administered on 08:22; Admin Dose 100 MG; Start 09/17/16 at 09:00 Metoprolol Tartrate (Lopressor) 50 mg BID PO Last administered on 10/01/16 08: 23; Admin Dose 50 MG; Start 09/19/16 at 21:00 Heparin Sodium (Porcine) (Heparin (5000 Units/0.5 ml)) 5,000 unit BID SC Last administered on 10/01/16 08:24; Admin Dose 5,000 UNIT; Start 09/25/16 at 11:00 Hydralazine HCl (Apresoline) 100 mg Q8 PO Last administered on 10/01/16 05:35 ; Admin Dose 100 MG; Start 09/25/16 at 14:00 Insulin Glargine (Lantus) 10 unit DAILY@08 SC Last administered on 10/01/16 08 :24; Admin Dose 10 UNIT; Start 09/26/16 at 16:00 Famotidine (Pepcid) 20 mg DAILY NGT Last administered on 10/01/16 08:22; Admin Dose 20 MG; Start 09/28/16 at 09:00 Amlodipine Besylate (Norvasc) 5 mg BID PO Last administered on 10/01/16 08:22 ; Admin Dose 5 MG; Start 09/29/16 at 21:00 CHERI PATTEN MD Oct 01, 2016 11:08
--- NOTE | 2016-10-01 13:12 | PN ---
Date/Time of Note Date/Time of Note DATE: 10/01/16 TIME: 13:01 Assessment/Plan VTE Prophylaxis VTE Prophylaxis Intervention: heparin Lines/Catheters IV Catheter Type (from Nrsg): Central Line Central line still needed: Yes Urinary Cath still in place: No Assessment/Plan Assessment/Plan 1. s/p Septic shock - 2/2 Ecoli UTI /Bacteremia, finished and off of antibiotics 2. Acute renal failure r/o CKD- 2/2 to ATN from sepsis, resolved 3. Type II DM - controlled on SSI 4. Metabolic / Lactic acidosis 2/2 #1: resolved 5. Acute Hypercapnic and Hypoxemic Resp failure - s/p self extubation - on BiPAP 6. Elevated trop, follow up with cardiology 7. Thrombocytopenia, resolved 8. Iron deficiency: + occult test stool. No signs of GI bleeding presently. S/ p EGD with gastritis findings only. s/p pRBC transfusion/ and IV iron infusion 9. Large periumbilical hernia, outpatient surgery consult 10. DVT prophylaxis: heparin Subjective 24 Hr Interval Summary Free Text/Dictation calm, no distress, no fever. no pain Exam/Review of Systems Vital Signs Vitals Vital Signs Date Time Temp Pulse Resp B/P Pulse Ox O2 Delivery O2 Flow Rate FiO2 10/01/16 11:44 97.7 60 20 146/64 98 10/01/16 07:35 Nasal Cannula 2.0 Intake and Output 09/30/16 09/30/16 10/01/16 15:00 23:00 07:00 Intake Total 960 ml Balance 960 ml Exam Constitutional: alert, oriented, well developed Psych: nl mood/affect, no complaints Head: atraumatic, normocephalic Eyes: EOMI, PERRL, nl conjunctiva, nl lids ENMT: nl external ears & nose, nl lips & teeth, nl nasal mucosa & septum Neck: non-tender, supple Respiratory: clear to auscultation, normal air movement, No congested cough, No crackles/rales, No diminished breath sounds, No intercostal retraction, No labored breathing, No other, No respirations, No tactile fremitus, No wheezing Cardiovascular: nl pulses, regular rate and rhythm, No S3, No S4, No bruits, No diastolic murmur, No edema, No gallop, No irregular rhythm, No jugular venous distention (JVD), No murmurs/extra sounds, No other, No rub, No systolic murmur Gastrointestinal: nl liver, spleen, non-tender, other (umbilical hernia), soft , No ascites, No bowel sounds, No distended, No firm, No hepatomegaly, No mass , No rebound or guarding, No splenomegaly, No surgical scars, No tender Musculoskeletal: nl extremities to inspection Extremities: normal pulses, No calf tenderness, No clubbing, No cyanosis, No edema, No other, No palpable cord, No pitting pedal edema, No tenderness Neurological: [employer] II-XII intact, nl mental status, nl speech, nl strength Skin: nl turgor Lymph: nl lymph nodes Results Result Diagram: 10/01/16 0630 10/01/16 0630 Results 24 hrs Laboratory Tests Test 09/30/16 16:55 09/30/16 21:09 10/01/16 01:52 10/01/16 02:38 Bedside Glucose 82 87 66 L 111 Test 10/01/16 05:34 10/01/16 06:30 10/01/16 07:24 10/01/16 12:17 Bedside Glucose 86 114 86 Anion Gap 14 Basophils # 0.1 Basophils % 1.1 Blood Urea Nitrogen 19 Calcium Level 8.1 L Carbon Dioxide Level 31 Chloride Level 99 Creatinine 0.98 Eosinophils # 0.2 Eosinophils % 2.4 Glucose Level 73 Hematocrit 37.8 Hemoglobin 11.9 L Lymphocytes # 2.2 Lymphocytes % 25.3 Mean Corpuscular Hemoglobin 28.8 L Mean Corpuscular Hemoglobin Concent 31.5 L Mean Corpuscular Volume 91.5 Mean Platelet Volume 12.3 H Monocytes # 0.9 Monocytes % 10.4 Neutrophils # 5.3 Neutrophils % 60.5 Nucleated Red Blood Cells # 0.0 Nucleated Red Blood Cells % 0.0 Platelet Count 332 Potassium Level 3.5 Red Blood Count 4.13 L Red Cell Distribution Width 15.9 H Sodium Level 140 White Blood Count 8.8 Medications Medications Current Medications Ondansetron HCl (Zofran Inj) 4 mg Q6H PRN IV NAUSEA AND/OR VOMITING Last administered on 09/10/16t 23:03; Admin Dose 4 MG; Start 09/09/16 at 20:00 Nitroglycerin (Nitroglycerin (Sl Tab) 0.4 Mg) 1 tab Q5M PRN SL CHEST PAIN; Start 2/20/17 at 20:00 Acetaminophen (Tylenol Liquid) 650 mg Q6H PRN PO PAIN LEVEL 1-3 OR FEVER Last administered on 09/26/16 18:37; Admin Dose 650 MG; Start 09/09/16 at 20:00 Morphine Sulfate (morphine) 2 mg Q4H PRN IV PAIN LEVEL 7-10 Last administered on 09/26/16 00:37; Admin Dose 2 MG; Start 09/09/16 at 20:00 Lorazepam (Ativan) 1 mg Q2H PRN IV ANXIETY Last administered on 09/22/16 16:46 ; Admin Dose 1 MG; Start 09/09/16 at 20:00 Glucose (Glutose) 15 gm Q15M PRN PO DECREASED GLUCOSE; Start 09/09/16 at 20:30 Glucose (Glutose) 22.5 gm Q15M PRN PO DECREASED GLUCOSE; Start 09/09/16 at 20: 30 Dextrose (D50w Syringe) 25 ml Q15M PRN IV DECREASED GLUCOSE Last administered on 09/25/16 17:40; Admin Dose 25 ML; Start 09/09/16 at 20:30 Dextrose (D50w Syringe) 50 ml Q15M PRN IV DECREASED GLUCOSE; Start 09/09/16 at 20:30 Glucagon (Glucagen) 1 mg Q15M PRN IM DECREASED GLUCOSE; Start 09/09/16 at 20:30 Glucose (Glutose) 15 gm Q15M PRN BUCCAL DECREASED GLUCOSE Last administered on 09/29/16 20:27; Admin Dose 15 GM; Start 09/09/16 at 20:30 Aspirin (Aspirin) 81 mg DAILY PO Last administered on 10/01/16 08:22; Admin Dose 81 MG; Start 09/12/16 at 09:00 Insulin Aspart (Novolog Insulin Pen) NOVOLOG *MODERATE* ALGORI... Q4 SC Last administered on 09/28/16 08:04; Admin Dose 2 UNIT; Start 09/13/16 at 13:00 Hydralazine HCl (Apresoline) 10 mg Q4H PRN IV SBP >160 Last administered on 04:00; Admin Dose 10 MG; Start 09/17/16 at 07:00 Docusate Sodium (Colace Liquid Cup) 100 mg Q12 PO Last administered on 08:22; Admin Dose 100 MG; Start 09/17/16 at 09:00 Metoprolol Tartrate (Lopressor) 50 mg BID PO Last administered on 10/01/16 08: 23; Admin Dose 50 MG; Start 09/19/16 at 21:00 Heparin Sodium (Porcine) (Heparin (5000 Units/0.5 ml)) 5,000 unit BID SC Last administered on 10/01/16 08:24; Admin Dose 5,000 UNIT; Start 09/25/16 at 11:00 Hydralazine HCl (Apresoline) 100 mg Q8 PO Last administered on 10/01/16 05:35 ; Admin Dose 100 MG; Start 09/25/16 at 14:00 Insulin Glargine (Lantus) 10 unit DAILY@08 SC Last administered on 10/01/16 08 :24; Admin Dose 10 UNIT; Start 09/26/16 at 16:00 Famotidine (Pepcid) 20 mg DAILY NGT Last administered on 10/01/16 08:22; Admin Dose 20 MG; Start 09/28/16 at 09:00 Amlodipine Besylate (Norvasc) 5 mg BID PO Last administered on 10/01/16 08:22 ; Admin Dose 5 MG; Start 09/29/16 at 21:00 KRISTEN ROSADO MD Oct 01, 2016 13:11
--- NOTE | 2016-10-01 20:17 | CONS ---
Date/Time of Note Date/Time of Note DATE: 10/01/16 TIME: 20:17 Assessment/Plan Assessment/Plan Chief Complaint/Hosp Course IMPRESSION: 1. Patient has SHALOM BETTER 2. S/P ATN 3. S/P vdrf NOW ON BIPAP 4.. The patient has Escherichia coli bacteremia, E. coli urinary tract infection. 5 hypernatremia better 6 pleural effusion on lasix 7 hypernatremia po water BETTER PLAN CK BMP lytes stable Problems: Consultation Date/Type/Reason Admit Date/Time Sep 09, 2016 at 19:47 Initial Consult Date 09/11/16 Type of Consultation: renal Referring Provider: EMILIANO HENDRICKS 24 HR Interval Summary Constitutional: no complaints Exam/Review of Systems Vital Signs Vitals Vital Signs Date Time Temp Pulse Resp B/P Pulse Ox O2 Delivery O2 Flow Rate FiO2 10/01/16 17:01 67 10/01/16 15:52 98.3 20 140/63 97 10/01/16 10:05 Nasal Cannula 2.0 Intake and Output 09/30/16 09/30/16 10/01/16 15:00 23:00 07:00 Intake Total 960 ml Balance 960 ml Exam Neck: supple Respiratory: clear to auscultation Cardiovascular: regular rate and rhythm Gastrointestinal: soft Results Result Diagram: 10/01/16 0630 10/01/16 0630 Results 24 hrs Laboratory Tests Test 09/30/16 21:09 10/01/16 01:52 10/01/16 02:38 10/01/16 05:34 Bedside Glucose 87 66 L 111 86 Test 10/01/16 06:30 10/01/16 07:24 10/01/16 12:17 10/01/16 17:00 Anion Gap 14 Basophils # 0.1 Basophils % 1.1 Blood Urea Nitrogen 19 Calcium Level 8.1 L Carbon Dioxide Level 31 Chloride Level 99 Creatinine 0.98 Eosinophils # 0.2 Eosinophils % 2.4 Glucose Level 73 Hematocrit 37.8 Hemoglobin 11.9 L Lymphocytes # 2.2 Lymphocytes % 25.3 Mean Corpuscular Hemoglobin 28.8 L Mean Corpuscular Hemoglobin Concent 31.5 L Mean Corpuscular Volume 91.5 Mean Platelet Volume 12.3 H Monocytes # 0.9 Monocytes % 10.4 Neutrophils # 5.3 Neutrophils % 60.5 Nucleated Red Blood Cells # 0.0 Nucleated Red Blood Cells % 0.0 Platelet Count 332 Potassium Level 3.5 Red Blood Count 4.13 L Red Cell Distribution Width 15.9 H Sodium Level 140 White Blood Count 8.8 Bedside Glucose 114 86 85 Medications Medications Current Medications Ondansetron HCl (Zofran Inj) 4 mg Q6H PRN IV NAUSEA AND/OR VOMITING Last administered on 09/10/16 23:03; Admin Dose 4 MG; Start 09/09/16 at 20:00 Nitroglycerin (Nitroglycerin (Sl Tab) 0.4 Mg) 1 tab Q5M PRN SL CHEST PAIN; Start 09/09/16 at 20:00 Acetaminophen (Tylenol Liquid) 650 mg Q6H PRN PO PAIN LEVEL 1-3 OR FEVER Last administered on 09/26/16 18:37; Admin Dose 650 MG; Start 09/09/16 at 20:00 Morphine Sulfate (morphine) 2 mg Q4H PRN IV PAIN LEVEL 7-10 Last administered on 09/26/16 00:37; Admin Dose 2 MG; Start 09/09/16 at 20:00 Lorazepam (Ativan) 1 mg Q2H PRN IV ANXIETY Last administered on 09/22/16 16:46 ; Admin Dose 1 MG; Start 09/09/16 at 20:00 Glucose (Glutose) 15 gm Q15M PRN PO DECREASED GLUCOSE; Start 09/09/16 at 20:30 Glucose (Glutose) 22.5 gm Q15M PRN PO DECREASED GLUCOSE; Start 09/09/16 at 20: 30 Dextrose (D50w Syringe) 25 ml Q15M PRN IV DECREASED GLUCOSE Last administered on 09/25/16 17:40; Admin Dose 25 ML; Start 09/09/16 at 20:30 Dextrose (D50w Syringe) 50 ml Q15M PRN IV DECREASED GLUCOSE; Start 09/09/16 at 20:30 Glucagon (Glucagen) 1 mg Q15M PRN IM DECREASED GLUCOSE; Start 09/09/16 at 20:30 Glucose (Glutose) 15 gm Q15M PRN BUCCAL DECREASED GLUCOSE Last administered on 09/29/16 20:27; Admin Dose 15 GM; Start 09/09/16 at 20:30 Aspirin (Aspirin) 81 mg DAILY PO Last administered on 10/01/16 08:22; Admin Dose 81 MG; Start 09/12/16 at 09:00 Insulin Aspart (Novolog Insulin Pen) NOVOLOG *MODERATE* ALGORI... Q4 SC Last administered on 09/28/16 08:04; Admin Dose 2 UNIT; Start 09/13/16 at 13:00 Hydralazine HCl (Apresoline) 10 mg Q4H PRN IV SBP >160 Last administered on 04:00; Admin Dose 10 MG; Start 09/17/16 at 07:00 Docusate Sodium (Colace Liquid Cup) 100 mg Q12 PO Last administered on 08:22; Admin Dose 100 MG; Start 09/17/16 at 09:00 Metoprolol Tartrate (Lopressor) 50 mg BID PO Last administered on 10/01/16 08: 23; Admin Dose 50 MG; Start 09/19/16 at 21:00 Heparin Sodium (Porcine) (Heparin (5000 Units/0.5 ml)) 5,000 unit BID SC Last administered on 10/01/16 08:24; Admin Dose 5,000 UNIT; Start 09/25/16 at 11:00 Hydralazine HCl (Apresoline) 100 mg Q8 PO Last administered on 10/01/16 14:36 ; Admin Dose 100 MG; Start 09/25/16 at 14:00 Insulin Glargine (Lantus) 10 unit DAILY@08 SC Last administered on 10/01/16 08 :24; Admin Dose 10 UNIT; Start 09/26/16 at 16:00 Famotidine (Pepcid) 20 mg DAILY NGT Last administered on 10/01/16 08:22; Admin Dose 20 MG; Start 09/28/16 at 09:00 Amlodipine Besylate (Norvasc) 5 mg BID PO Last administered on 10/01/16 08:22 ; Admin Dose 5 MG; Start 09/29/16 at 21:00 QUITA SCHOFIELD MD Oct 01, 2016 20:17
--- NOTE | 2016-10-01 23:13 | CONS ---
Date/Time of Note Date/Time of Note DATE: 10/01/16 TIME: 23:12 Assessment/Plan Assessment/Plan Chief Complaint/Hosp Course IMPRESSION: thrombocytopenia in pt with severe sepsis, exposed to multiple meds with pos thrombocytopenic effect, including VANCO, ZOSYN, HEPARIN,CEFAZOLIN- RESOLVED NO EVIDENCE OF DIC cont to monitor blood count closely HIPA- NEG PLATELET COUNT NORMALIZED Leukocytosis. REACTIVE MONITOR IMPROVING Anemia. C/W ACD MONITOR BLOOD COUNT CLOSELY TRANSFUSE NEEDED Severe Sepsis with septic shock 2/2 Ecoli UTI /Bacteremia Acute renal failure - 2/2 to ATN from sepsis Type II DM - Hyperglycemic on D5W Metabolic / Lactic acidosis 2/2 #1 Acute resp failure now ventilator dependent NSTEMI versus demand ischemia Positive troponin, assess significance, assess for true acute coronary syndrome. Metabolic acidosis respiratory failure, vent dependent incomplete database Thank you for allowing me to take part in the care of this patient. I will continue to follow along very closely with you. Further recommendations will be made as the patient progresses through her inpatient hospital clinical course. Problems: Consultation Date/Type/Reason Admit Date/Time Sep 09, 2016 at 19:47 Initial Consult Date 09/13/16 Type of Consultation: hemeon Referring Provider: EMILIANO HENDRICKS 24 HR Interval Summary Free Text/Dictation all noted no new complains Exam/Review of Systems Vital Signs Vitals Vital Signs Date Time Temp Pulse Resp B/P Pulse Ox O2 Delivery O2 Flow Rate FiO2 10/01/16 21:02 2.0 10/01/16 20:40 63 10/01/16 20:25 Nasal Cannula 10/01/16 20:00 97.4 20 162/71 99 Intake and Output 09/30/16 09/30/16 10/01/16 15:00 23:00 07:00 Intake Total 960 ml Balance 960 ml Exam CONSTITUTIONAL: No fevers, chills. PULMONARY: No sob CARDIOVASCULAR: No chest pain/palpitations GASTROINTESTINAL: No nausea/vomiting. GENITOURINARY: No hematuria/dysuria. MUSCULOSKELETAL: No myagias/arthalgias. PSYCHIATRIC: The patient denies depression. NEUROLOGIC: No weakness Constitutional: alert, oriented Psych: no complaints Head: normocephalic ENMT: mucosa pink and moist Neck: jvd (8-9 cm water) Respiratory: clear to auscultation Cardiovascular: regular rate and rhythm Gastrointestinal: non-tender, soft Musculoskeletal: muscle tone (normal) Extremities: edema (none) Neurological: other (No focal deficits) Results Result Diagram: 10/01/16 0630 10/01/16 0630 Results 24 hrs Laboratory Tests Test 10/01/16 01:52 10/01/16 02:38 10/01/16 05:34 10/01/16 06:30 Bedside Glucose 66 L 111 86 Anion Gap 14 Basophils # 0.1 Basophils % 1.1 Blood Urea Nitrogen 19 Calcium Level 8.1 L Carbon Dioxide Level 31 Chloride Level 99 Creatinine 0.98 Eosinophils # 0.2 Eosinophils % 2.4 Glucose Level 73 Hematocrit 37.8 Hemoglobin 11.9 L Lymphocytes # 2.2 Lymphocytes % 25.3 Mean Corpuscular Hemoglobin 28.8 L Mean Corpuscular Hemoglobin Concent 31.5 L Mean Corpuscular Volume 91.5 Mean Platelet Volume 12.3 H Monocytes # 0.9 Monocytes % 10.4 Neutrophils # 5.3 Neutrophils % 60.5 Nucleated Red Blood Cells # 0.0 Nucleated Red Blood Cells % 0.0 Platelet Count 332 Potassium Level 3.5 Red Blood Count 4.13 L Red Cell Distribution Width 15.9 H Sodium Level 140 White Blood Count 8.8 Test 10/01/16 07:24 10/01/16 12:17 10/01/16 17:00 10/01/16 21:20 Bedside Glucose 114 86 85 74 Medications Medications Current Medications Ondansetron HCl (Zofran Inj) 4 mg Q6H PRN IV NAUSEA AND/OR VOMITING Last administered on 09/10/16 23:03; Admin Dose 4 MG; Start 09/09/16 at 20:00 Nitroglycerin (Nitroglycerin (Sl Tab) 0.4 Mg) 1 tab Q5M PRN SL CHEST PAIN; Start 09/09/16 at 20:00 Acetaminophen (Tylenol Liquid) 650 mg Q6H PRN PO PAIN LEVEL 1-3 OR FEVER Last administered on 09/26/16 18:37; Admin Dose 650 MG; Start 09/09/16 at 20:00 Morphine Sulfate (morphine) 2 mg Q4H PRN IV PAIN LEVEL 7-10 Last administered on 09/26/16 00:37; Admin Dose 2 MG; Start 09/09/16 at 20:00 Lorazepam (Ativan) 1 mg Q2H PRN IV ANXIETY Last administered on 09/22/16 16:46 ; Admin Dose 1 MG; Start 09/09/16 at 20:00 Glucose (Glutose) 15 gm Q15M PRN PO DECREASED GLUCOSE; Start 09/09/16 at 20:30 Glucose (Glutose) 22.5 gm Q15M PRN PO DECREASED GLUCOSE; Start 09/09/16 at 20: 30 Dextrose (D50w Syringe) 25 ml Q15M PRN IV DECREASED GLUCOSE Last administered on 09/25/16 17:40; Admin Dose 25 ML; Start 09/09/16 at 20:30 Dextrose (D50w Syringe) 50 ml Q15M PRN IV DECREASED GLUCOSE; Start 09/09/16 at 20:30 Glucagon (Glucagen) 1 mg Q15M PRN IM DECREASED GLUCOSE; Start 09/09/16 at 20:30 Glucose (Glutose) 15 gm Q15M PRN BUCCAL DECREASED GLUCOSE Last administered on 09/29/16 20:27; Admin Dose 15 GM; Start 09/09/16 at 20:30 Aspirin (Aspirin) 81 mg DAILY PO Last administered on 10/01/16 08:22; Admin Dose 81 MG; Start 09/12/16 at 09:00 Insulin Aspart (Novolog Insulin Pen) NOVOLOG *MODERATE* ALGORI... Q4 SC Last administered on 09/28/16 08:04; Admin Dose 2 UNIT; Start 09/13/16 at 13:00 Hydralazine HCl (Apresoline) 10 mg Q4H PRN IV SBP >160 Last administered on 04:00; Admin Dose 10 MG; Start 09/17/16 at 07:00 Docusate Sodium (Colace Liquid Cup) 100 mg Q12 PO Last administered on 21:26; Admin Dose 100 MG; Start 09/17/16 at 09:00 Metoprolol Tartrate (Lopressor) 50 mg BID PO Last administered on 10/01/16 21: 30; Admin Dose 50 MG; Start 09/19/16 at 21:00 Heparin Sodium (Porcine) (Heparin (5000 Units/0.5 ml)) 5,000 unit BID SC Last administered on 10/01/16 21:35; Admin Dose 5,000 UNIT; Start 09/25/16 at 11:00 Hydralazine HCl (Apresoline) 100 mg Q8 PO Last administered on 10/01/16 21:29 ; Admin Dose 100 MG; Start 09/25/16 at 14:00 Insulin Glargine (Lantus) 10 unit DAILY@08 SC Last administered on 10/01/16 08 :24; Admin Dose 10 UNIT; Start 09/26/16 at 16:00 Famotidine (Pepcid) 20 mg DAILY NGT Last administered on 10/01/16 08:22; Admin Dose 20 MG; Start 09/28/16 at 09:00 Amlodipine Besylate (Norvasc) 5 mg BID PO Last administered on 10/01/16 21:29 ; Admin Dose 5 MG; Start 09/29/16 at 21:00 JEFF FRANK MD Oct 01, 2016 23:12
[2016-10-02] MEDS: INSULIN ASPART [NOVOLOG] 3 ML PEN SC SCH ×5 (01:00→17:00)
[2016-10-02 01:45] VITALS: BP 158/70; PULSE 63
[2016-10-02 05:01] LABS: ADD SCAN DIFF NO
[2016-10-02 05:19] LABS: BASOPHIL # 0.1 10^3/ul (0.0-0.1); BASOPHILS % 0.8 % (0.0-2.0); EOSINOPHILS # 0.2 10^3/ul (0.0-0.5); EOSINOPHILS % 2.8 % (0.0-7.0); HEMATOCRIT 34.4 % (37.0-47.0); LYMPHOCYTES # 2.1 10^3/ul (0.8-2.9); LYMPHOCYTES % 28.1 % (15.0-51.0); MEAN CORPUSCULAR HEMOGLOBIN 29.1 pg (29.0-33.0); MEAN PLATELET VOLUME 12.5 fl (7.4-10.4); MONOCYTE # 0.9 10^3/ul (0.3-0.9); MONOCYTES % 11.6 % (0.0-11.0); NEUTROPHIL # 4.2 10^3/ul (1.6-7.5); NEUTROPHILS % 56.4 % (39.0-77.0); PLATELET COUNT 290 10^3/UL (140-415); RED BLOOD COUNT 3.78 10^6/ul (4.20-5.40); RED CELL DISTRIBUTION WIDTH 15.8 % (11.5-14.5); WHITE BLOOD COUNT 7.4 10^3/ul (4.8-10.8)
[2016-10-02 05:34] LABS: POTASSIUM 3.4 mmol/L (3.5-5.1)
[2016-10-02 05:37] LABS: CREATININE 0.93 mg/dl (0.44-1.00)
[2016-10-02 05:38] LABS: CALCIUM 8.1 mg/dl (8.4-10.2)
[2016-10-02 06:56] VITALS: BP 148/68; PULSE 82
[2016-10-02 07:50] VITALS: BP 155/70; RESP 18
[2016-10-02] MEDS: INSULIN GLARGINE [LANtus] 3 ML PEN SC SCH (09:26)
[2016-10-02] MEDS: HEPARIN 5,000 UNIT/0.5 ML SYG SC SCH ×2 (09:38→21:05)
[2016-10-02] MEDS: ASPIRIN 81 MG TAB PO SCH (09:40)
[2016-10-02] MEDS: METOPROLOL 50 MG TAB PO SCH ×2 (09:40→20:57)
[2016-10-02] MEDS: DOCUSATE SODIUM 10 MG/ML (10ML CUP) PO SCH ×2 (09:40→20:57)
[2016-10-02] MEDS: FAMOTIDINE 20 MG TAB NGT SCH (09:40)
[2016-10-02] MEDS: AMLODIPINE 5 MG TAB PO SCH ×2 (09:41→20:57)
--- NOTE | 2016-10-02 14:44 | PN ---
Date/Time of Note Date/Time of Note DATE: 10/02/16 TIME: 14:41 Assessment/Plan VTE Prophylaxis VTE Prophylaxis Intervention: heparin Lines/Catheters IV Catheter Type (from Nrsg): Central Line Central line still needed: Yes Urinary Cath still in place: No Assessment/Plan Assessment/Plan 1. s/p Septic shock - 2/2 Ecoli UTI /Bacteremia, finished and off of antibiotics 2. Acute renal failure r/o CKD- 2/2 to ATN from sepsis, resolved 3. Type II DM - controlled on SSI 4. Metabolic / Lactic acidosis 2/2 #1: resolved 5. Acute Hypercapnic and Hypoxemic Resp failure - s/p self extubation - on BiPAP 6. Elevated trop, follow up with cardiology 7. Thrombocytopenia, resolved 8. Iron deficiency: + occult test stool. No signs of GI bleeding presently. S/ p EGD with gastritis findings only. s/p pRBC transfusion/ and IV iron infusion 9. Large periumbilical hernia, outpatient surgery consult 10. DVT prophylaxis: heparin 11. D/C planning, acute rehab or home with PT Subjective 24 Hr Interval Summary Free Text/Dictation walks little with PT. refuses SNF. will try acute rehab Exam/Review of Systems Vital Signs Vitals Vital Signs Date Time Temp Pulse Resp B/P Pulse Ox O2 Delivery O2 Flow Rate FiO2 10/02/16 07:50 97.6 68 18 155/70 99 10/02/16 05:47 2.0 10/01/16 20:25 Nasal Cannula Intake and Output 10/01/16 10/01/16 10/02/16 15:00 23:00 07:00 Intake Total 600 ml 720 ml 200 ml Balance 600 ml 720 ml 200 ml Exam Constitutional: alert, oriented, well developed Psych: nl mood/affect, no complaints Head: atraumatic Eyes: EOMI, PERRL, nl conjunctiva, nl lids ENMT: nl external ears & nose, nl lips & teeth, nl nasal mucosa & septum Neck: non-tender, supple Respiratory: clear to auscultation, normal air movement, No congested cough, No crackles/rales, No diminished breath sounds, No intercostal retraction, No labored breathing, No other, No respirations, No tactile fremitus, No wheezing Cardiovascular: nl pulses, regular rate and rhythm, No S3, No S4, No bruits, No diastolic murmur, No edema, No gallop, No irregular rhythm, No jugular venous distention (JVD), No murmurs/extra sounds, No other, No rub, No systolic murmur Gastrointestinal: nl liver, spleen, non-tender, other (largge ventral hernia), soft, No ascites, No bowel sounds, No distended, No firm, No hepatomegaly, No mass , No rebound or guarding, No splenomegaly, No surgical scars, No tender Musculoskeletal: nl extremities to inspection Extremities: normal pulses, No calf tenderness, No clubbing, No cyanosis, No edema, No other, No palpable cord, No pitting pedal edema, No tenderness Neurological: PANTRY STEWARD/STEWARDESS II-XII intact, nl mental status, nl speech, nl strength Skin: nl turgor Lymph: nl lymph nodes Results Result Diagram: 10/02/16 0430 10/02/16 0430 Results 24 hrs Laboratory Tests Test 10/01/16 17:00 10/01/16 21:20 10/02/16 01:41 10/02/16 04:26 Bedside Glucose 85 74 109 77 Test 10/02/16 04:30 10/02/16 08:11 10/02/16 12:11 Anion Gap 11 Basophils # 0.1 Basophils % 0.8 Blood Urea Nitrogen 16 Calcium Level 8.1 L Carbon Dioxide Level 33 H Chloride Level 99 Creatinine 0.93 Eosinophils # 0.2 Eosinophils % 2.8 Glucose Level 74 Hematocrit 34.4 L Hemoglobin 11.0 L Lymphocytes # 2.1 Lymphocytes % 28.1 Mean Corpuscular Hemoglobin 29.1 Mean Corpuscular Hemoglobin Concent 32.0 Mean Corpuscular Volume 91.0 Mean Platelet Volume 12.5 H Monocytes # 0.9 Monocytes % 11.6 H Neutrophils # 4.2 Neutrophils % 56.4 Nucleated Red Blood Cells # 0.0 Nucleated Red Blood Cells % 0.0 Platelet Count 290 Potassium Level 3.4 L Red Blood Count 3.78 L Red Cell Distribution Width 15.8 H Sodium Level 140 White Blood Count 7.4 Bedside Glucose 90 98 Medications Medications Current Medications Ondansetron HCl (Zofran Inj) 4 mg Q6H PRN IV NAUSEA AND/OR VOMITING Last administered on 09/10/16t 23:03; Admin Dose 4 MG; Start 09/09/16 at 20:00 Nitroglycerin (Nitroglycerin (Sl Tab) 0.4 Mg) 1 tab Q5M PRN SL CHEST PAIN; Start 09/09/16 at 20:00 Acetaminophen (Tylenol Liquid) 650 mg Q6H PRN PO PAIN LEVEL 1-3 OR FEVER Last administered on 09/26/16 18:37; Admin Dose 650 MG; Start 09/09/16 at 20:00 Morphine Sulfate (morphine) 2 mg Q4H PRN IV PAIN LEVEL 7-10 Last administered on 09/26/16 00:37; Admin Dose 2 MG; Start 09/09/16 at 20:00 Lorazepam (Ativan) 1 mg Q2H PRN IV ANXIETY Last administered on 09/22/16 16:46 ; Admin Dose 1 MG; Start 09/09/16 at 20:00 Glucose (Glutose) 15 gm Q15M PRN PO DECREASED GLUCOSE; Start 09/09/16 at 20:30 Glucose (Glutose) 22.5 gm Q15M PRN PO DECREASED GLUCOSE; Start 09/09/16 at 20: 30 Dextrose (D50w Syringe) 25 ml Q15M PRN IV DECREASED GLUCOSE Last administered on 09/25/16 17:40; Admin Dose 25 ML; Start 09/09/16 at 20:30 Dextrose (D50w Syringe) 50 ml Q15M PRN IV DECREASED GLUCOSE; Start 09/09/16 at 20:30 Glucagon (Glucagen) 1 mg Q15M PRN IM DECREASED GLUCOSE; Start 09/09/16 at 20:30 Glucose (Glutose) 15 gm Q15M PRN BUCCAL DECREASED GLUCOSE Last administered on 09/29/16 20:27; Admin Dose 15 GM; Start 09/09/16 at 20:30 Aspirin (Aspirin) 81 mg DAILY PO Last administered on 10/02/16 09:40; Admin Dose 81 MG; Start 09/12/16 at 09:00 Insulin Aspart (Novolog Insulin Pen) NOVOLOG *MODERATE* ALGORI... Q4 SC Last administered on 09/28/16 08:04; Admin Dose 2 UNIT; Start 09/13/16 at 13:00 Hydralazine HCl (Apresoline) 10 mg Q4H PRN IV SBP >160 Last administered on 04:00; Admin Dose 10 MG; Start 09/17/16 at 07:00 Docusate Sodium (Colace Liquid Cup) 100 mg Q12 PO Last administered on 09:40; Admin Dose 100 MG; Start 09/17/16 at 09:00 Metoprolol Tartrate (Lopressor) 50 mg BID PO Last administered on 10/02/16 09: 40; Admin Dose 50 MG; Start 09/19/16 at 21:00 Heparin Sodium (Porcine) (Heparin (5000 Units/0.5 ml)) 5,000 unit BID SC Last administered on 10/02/16 09:38; Admin Dose 5,000 UNIT; Start 09/25/16 at 11:00 Hydralazine HCl (Apresoline) 100 mg Q8 PO Last administered on 10/02/16 05:40 ; Admin Dose 100 MG; Start 09/25/16 at 14:00 Insulin Glargine (Lantus) 10 unit DAILY@08 SC Last administered on 10/02/16 09 :26; Admin Dose 10 UNIT; Start 09/26/16 at 16:00 Famotidine (Pepcid) 20 mg DAILY NGT Last administered on 10/02/16 09:40; Admin Dose 20 MG; Start 09/28/16 at 09:00 Amlodipine Besylate (Norvasc) 5 mg BID PO Last administered on 10/02/16 09:41 ; Admin Dose 5 MG; Start 09/29/16 at 21:00 KRISTEN ROSADO MD Oct 02, 2016 14:44
--- NOTE | 2016-10-02 18:22 | CONS ---
Date/Time of Note Date/Time of Note DATE: 10/02/16 TIME: 18:19 Assessment/Plan Assessment/Plan Chief Complaint/Hosp Course IMPRESSION: 1. Positive troponin, assess significance, assess for true acute coronary syndrome.-now downtrending in setting ongoing renal failure 2. Hypotension, shock state. Rule out cardiac etiology-EF 45-50 by echo this admit-improved off of pressors 3. Abnormal electrocardiogram, assess for acute coronary syndrome. 4. Respiratory failure s/p extubation-improving off of BIPAP currently 5. Leukocytosis. 6. Anemia. 7. Thrombocytopenia-improved 8. Renal failure-ongoing/stable to slightly improved 9. Bacteremia with gram negative rods. 10.CHF-systolic and diastolic acute EF 45-50 by echo this admit REcc: -Tele -continue abx's and f/u ca data -Continue asa -Continue BB/hydralazine/CCB and start acei to improve BP -Follow volume status closely with intermittent spot dosing of lasix -Continue bronchodilators Problems: Consultation Date/Type/Reason Admit Date/Time Sep 09, 2016 at 19:47 Initial Consult Date 09/11/16 Type of Consultation: Cardiology Reason for Consultation positive troponin Referring Provider: EMILIANO HENDRICKS Exam/Review of Systems Vital Signs Vitals Vital Signs Date Time Temp Pulse Resp B/P Pulse Ox O2 Delivery O2 Flow Rate FiO2 10/02/16 08:00 Nasal Cannula 2.0 10/02/16 07:50 97.6 68 18 155/70 99 Intake and Output 10/01/16 10/01/16 10/02/16 15:00 23:00 07:00 Intake Total 600 ml 720 ml 200 ml Balance 600 ml 720 ml 200 ml Exam Review of Systems: CONSTITUTIONAL: No fevers, chills. PULMONARY: No sob CARDIOVASCULAR: No chest pain/palpitations GASTROINTESTINAL: No nausea/vomiting. GENITOURINARY: No hematuria/dysuria. MUSCULOSKELETAL: No myagias/arthalgias. PSYCHIATRIC: The patient denies depression. NEUROLOGIC: No weakness Constitutional: alert, oriented Psych: no complaints Head: normocephalic ENMT: mucosa pink and moist Neck: jvd, supple Respiratory: diminished breath sounds (at bvases/B) Cardiovascular: regular rate and rhythm Gastrointestinal: non-tender, soft Musculoskeletal: muscle tone (normal) Extremities: edema (none) Neurological: other (No focal deficits) Results Result Diagram: 10/02/16 0430 10/02/16 0430 Results 24 hrs Laboratory Tests Test 10/01/16 21:20 10/02/16 01:41 10/02/16 04:26 10/02/16 04:30 Bedside Glucose 74 109 77 Anion Gap 11 Basophils # 0.1 Basophils % 0.8 Blood Urea Nitrogen 16 Calcium Level 8.1 L Carbon Dioxide Level 33 H Chloride Level 99 Creatinine 0.93 Eosinophils # 0.2 Eosinophils % 2.8 Glucose Level 74 Hematocrit 34.4 L Hemoglobin 11.0 L Lymphocytes # 2.1 Lymphocytes % 28.1 Mean Corpuscular Hemoglobin 29.1 Mean Corpuscular Hemoglobin Concent 32.0 Mean Corpuscular Volume 91.0 Mean Platelet Volume 12.5 H Monocytes # 0.9 Monocytes % 11.6 H Neutrophils # 4.2 Neutrophils % 56.4 Nucleated Red Blood Cells # 0.0 Nucleated Red Blood Cells % 0.0 Platelet Count 290 Potassium Level 3.4 L Red Blood Count 3.78 L Red Cell Distribution Width 15.8 H Sodium Level 140 White Blood Count 7.4 Test 10/02/16 08:11 10/02/16 12:11 10/02/16 17:17 Bedside Glucose 90 98 120 Medications Medications Current Medications Ondansetron HCl (Zofran Inj) 4 mg Q6H PRN IV NAUSEA AND/OR VOMITING Last administered on 09/10/16 23:03; Admin Dose 4 MG; Start 09/09/16 at 20:00 Nitroglycerin (Nitroglycerin (Sl Tab) 0.4 Mg) 1 tab Q5M PRN SL CHEST PAIN; Start 09/09/16 at 20:00 Acetaminophen (Tylenol Liquid) 650 mg Q6H PRN PO PAIN LEVEL 1-3 OR FEVER Last administered on 09/26/16 18:37; Admin Dose 650 MG; Start 09/09/16 at 20:00 Morphine Sulfate (morphine) 2 mg Q4H PRN IV PAIN LEVEL 7-10 Last administered on 09/26/16 00:37; Admin Dose 2 MG; Start 09/09/16 at 20:00 Lorazepam (Ativan) 1 mg Q2H PRN IV ANXIETY Last administered on 09/22/16 16:46 ; Admin Dose 1 MG; Start 09/09/16 at 20:00 Glucose (Glutose) 15 gm Q15M PRN PO DECREASED GLUCOSE; Start 09/09/16 at 20:30 Glucose (Glutose) 22.5 gm Q15M PRN PO DECREASED GLUCOSE; Start 09/09/16 at 20: 30 Dextrose (D50w Syringe) 25 ml Q15M PRN IV DECREASED GLUCOSE Last administered on 09/25/16 17:40; Admin Dose 25 ML; Start 09/09/16 at 20:30 Dextrose (D50w Syringe) 50 ml Q15M PRN IV DECREASED GLUCOSE; Start 09/09/16 at 20:30 Glucagon (Glucagen) 1 mg Q15M PRN IM DECREASED GLUCOSE; Start 09/09/16 at 20:30 Glucose (Glutose) 15 gm Q15M PRN BUCCAL DECREASED GLUCOSE Last administered on 09/29/16 20:27; Admin Dose 15 GM; Start 09/09/16 at 20:30 Aspirin (Aspirin) 81 mg DAILY PO Last administered on 10/02/16 09:40; Admin Dose 81 MG; Start 09/12/16 at 09:00 Insulin Aspart (Novolog Insulin Pen) NOVOLOG *MODERATE* ALGORI... Q4 SC Last administered on 09/28/16 08:04; Admin Dose 2 UNIT; Start 09/13/16 at 13:00 Hydralazine HCl (Apresoline) 10 mg Q4H PRN IV SBP >160 Last administered on 04:00; Admin Dose 10 MG; Start 09/17/16 at 07:00 Docusate Sodium (Colace Liquid Cup) 100 mg Q12 PO Last administered on 09:40; Admin Dose 100 MG; Start 09/17/16 at 09:00 Metoprolol Tartrate (Lopressor) 50 mg BID PO Last administered on 10/02/16 09: 40; Admin Dose 50 MG; Start 09/19/16 at 21:00 Heparin Sodium (Porcine) (Heparin (5000 Units/0.5 ml)) 5,000 unit BID SC Last administered on 10/02/16 09:38; Admin Dose 5,000 UNIT; Start 09/25/16 at 11:00 Hydralazine HCl (Apresoline) 100 mg Q8 PO Last administered on 10/02/16 15:32 ; Admin Dose 100 MG; Start 09/25/16 at 14:00 Insulin Glargine (Lantus) 10 unit DAILY@08 SC Last administered on 10/02/16 09 :26; Admin Dose 10 UNIT; Start 09/26/16 at 16:00 Famotidine (Pepcid) 20 mg DAILY NGT Last administered on 10/02/16 09:40; Admin Dose 20 MG; Start 09/28/16 at 09:00 Amlodipine Besylate (Norvasc) 5 mg BID PO Last administered on 10/02/16 09:41 ; Admin Dose 5 MG; Start 09/29/16 at 21:00 ALLISON CONTRERAS Oct 02, 2016 18:22
--- NOTE | 2016-10-02 20:23 | CONS ---
Date/Time of Note Date/Time of Note DATE: 10/02/16 TIME: 20:22 Assessment/Plan Assessment/Plan Chief Complaint/Hosp Course IMPRESSION: 1. Patient has SHALOM BETTER 2. S/P ATN 3. S/P vdrf NOW ON BIPAP 4.. The patient has Escherichia coli bacteremia, E. coli urinary tract infection. 5 hypokalemia 6 pleural effusion on lasix 7 hypernatremia po water BETTER PLAN CK BMP lytes stable kcl Problems: Consultation Date/Type/Reason Admit Date/Time Sep 09, 2016 at 19:47 Initial Consult Date 09/11/16 Type of Consultation: renal Referring Provider: EMILIANO HENDRICKS 24 HR Interval Summary Constitutional: no complaints Exam/Review of Systems Vital Signs Vitals Vital Signs Date Time Temp Pulse Resp B/P Pulse Ox O2 Delivery O2 Flow Rate FiO2 10/02/16 08:00 Nasal Cannula 2.0 10/02/16 07:50 97.6 68 18 155/70 99 Intake and Output 10/01/16 10/01/16 10/02/16 15:00 23:00 07:00 Intake Total 600 ml 720 ml 200 ml Balance 600 ml 720 ml 200 ml Exam Respiratory: clear to auscultation Cardiovascular: regular rate and rhythm Gastrointestinal: soft Results Result Diagram: 10/02/16 0430 10/02/16 0430 Results 24 hrs Laboratory Tests Test 10/01/16 21:20 10/02/16 01:41 10/02/16 04:26 10/02/16 04:30 Bedside Glucose 74 109 77 Anion Gap 11 Basophils # 0.1 Basophils % 0.8 Blood Urea Nitrogen 16 Calcium Level 8.1 L Carbon Dioxide Level 33 H Chloride Level 99 Creatinine 0.93 Eosinophils # 0.2 Eosinophils % 2.8 Glucose Level 74 Hematocrit 34.4 L Hemoglobin 11.0 L Lymphocytes # 2.1 Lymphocytes % 28.1 Mean Corpuscular Hemoglobin 29.1 Mean Corpuscular Hemoglobin Concent 32.0 Mean Corpuscular Volume 91.0 Mean Platelet Volume 12.5 H Monocytes # 0.9 Monocytes % 11.6 H Neutrophils # 4.2 Neutrophils % 56.4 Nucleated Red Blood Cells # 0.0 Nucleated Red Blood Cells % 0.0 Platelet Count 290 Potassium Level 3.4 L Red Blood Count 3.78 L Red Cell Distribution Width 15.8 H Sodium Level 140 White Blood Count 7.4 Test 10/02/16 08:11 10/02/16 12:11 10/02/16 17:17 Bedside Glucose 90 98 120 Medications Medications Current Medications Ondansetron HCl (Zofran Inj) 4 mg Q6H PRN IV NAUSEA AND/OR VOMITING Last administered on 09/10/16 23:03; Admin Dose 4 MG; Start 09/09/16 at 20:00 Nitroglycerin (Nitroglycerin (Sl Tab) 0.4 Mg) 1 tab Q5M PRN SL CHEST PAIN; Start 09/09/16 at 20:00 Acetaminophen (Tylenol Liquid) 650 mg Q6H PRN PO PAIN LEVEL 1-3 OR FEVER Last administered on 09/26/16 18:37; Admin Dose 650 MG; Start 09/09/16 at 20:00 Morphine Sulfate (morphine) 2 mg Q4H PRN IV PAIN LEVEL 7-10 Last administered on 09/26/16 00:37; Admin Dose 2 MG; Start 09/09/16 at 20:00 Lorazepam (Ativan) 1 mg Q2H PRN IV ANXIETY Last administered on 09/22/16 16:46 ; Admin Dose 1 MG; Start 09/09/16 at 20:00 Glucose (Glutose) 15 gm Q15M PRN PO DECREASED GLUCOSE; Start 09/09/16 at 20:30 Glucose (Glutose) 22.5 gm Q15M PRN PO DECREASED GLUCOSE; Start 09/09/16 at 20: 30 Dextrose (D50w Syringe) 25 ml Q15M PRN IV DECREASED GLUCOSE Last administered on 09/25/16 17:40; Admin Dose 25 ML; Start 09/09/16 at 20:30 Dextrose (D50w Syringe) 50 ml Q15M PRN IV DECREASED GLUCOSE; Start 09/09/16 at 20:30 Glucagon (Glucagen) 1 mg Q15M PRN IM DECREASED GLUCOSE; Start 09/09/16 at 20:30 Glucose (Glutose) 15 gm Q15M PRN BUCCAL DECREASED GLUCOSE Last administered on 09/29/16 20:27; Admin Dose 15 GM; Start 09/09/16 at 20:30 Aspirin (Aspirin) 81 mg DAILY PO Last administered on 10/02/16 09:40; Admin Dose 81 MG; Start 09/12/16 at 09:00 Hydralazine HCl (Apresoline) 10 mg Q4H PRN IV SBP >160 Last administered on 04:00; Admin Dose 10 MG; Start 09/17/16 at 07:00 Docusate Sodium (Colace Liquid Cup) 100 mg Q12 PO Last administered on 09:40; Admin Dose 100 MG; Start 09/17/16 at 09:00 Metoprolol Tartrate (Lopressor) 50 mg BID PO Last administered on 10/02/16 09: 40; Admin Dose 50 MG; Start 09/19/16 at 21:00 Heparin Sodium (Porcine) (Heparin (5000 Units/0.5 ml)) 5,000 unit BID SC Last administered on 10/02/16 09:38; Admin Dose 5,000 UNIT; Start 09/25/16 at 11:00 Hydralazine HCl (Apresoline) 100 mg Q8 PO Last administered on 10/02/16 15:32 ; Admin Dose 100 MG; Start 09/25/16 at 14:00 Insulin Glargine (Lantus) 10 unit DAILY@08 SC Last administered on 10/02/16 09 :26; Admin Dose 10 UNIT; Start 09/26/16 at 16:00 Famotidine (Pepcid) 20 mg DAILY NGT Last administered on 10/02/16 09:40; Admin Dose 20 MG; Start 09/28/16 at 09:00 Amlodipine Besylate (Norvasc) 5 mg BID PO Last administered on 10/02/16 09:41 ; Admin Dose 5 MG; Start 09/29/16 at 21:00 Benazepril HCl (Lotensin) 10 mg DAILY PO ; Start 10/03/16 at 09:00 Diagnostic Test (Pha) (Accucheck) 1 ea 02 XX ; Start 10/03/16 at 02:00 QUITA SCHOFIELD MD Oct 02, 2016 20:23
[2016-10-02] MEDS ORDERED: POTASSIUM CHLORIDE (SR) 8 MEQ CAP PO ONE (20:30)
[2016-10-02] MEDS ORDERED: ACCUCHECK XX SCH (21:00)
[2016-10-02] MEDS ORDERED: INSULIN ASPART [NOVOLOG] 3 ML PEN SC SCH (21:00)
[2016-10-02] MEDS: Insulin NOVOLOG SS MODERATE Algorithm (SS with meals and bedtime) SC SCH (21:00)
[2016-10-02 21:18] VITALS: BP 170/74; RESP 18
[2016-10-02] MEDS ORDERED: POTASSIUM CHLORIDE (1.33 MEQ/ML PO SYG) PO SCH (21:30)
[2016-10-02 22:15] VITALS: BP 166/67; PULSE 66
--- NOTE | 2016-10-03 00:07 | CONS ---
Date/Time of Note Date/Time of Note DATE: 10/02/16 TIME: 21:06 Assessment/Plan Assessment/Plan Chief Complaint/Hosp Course IMPRESSION: thrombocytopenia in pt with severe sepsis, exposed to multiple meds with pos thrombocytopenic effect, including VANCO, ZOSYN, HEPARIN,CEFAZOLIN- RESOLVED NO EVIDENCE OF DIC cont to monitor blood count closely HIPA- NEG PLATELET COUNT NORMALIZED Leukocytosis. REACTIVE MONITOR IMPROVING Anemia. C/W ACD MONITOR BLOOD COUNT CLOSELY TRANSFUSE NEEDED Severe Sepsis with septic shock 2/2 Ecoli UTI /Bacteremia Acute renal failure - 2/2 to ATN from sepsis Type II DM - Hyperglycemic on D5W Metabolic / Lactic acidosis 2/2 #1 Acute resp failure now ventilator dependent NSTEMI versus demand ischemia Positive troponin, assess significance, assess for true acute coronary syndrome. Metabolic acidosis respiratory failure, vent dependent incomplete database Thank you for allowing me to take part in the care of this patient. I will continue to follow along very closely with you. Further recommendations will be made as the patient progresses through her inpatient hospital clinical course. Problems: Consultation Date/Type/Reason Admit Date/Time Sep 09, 2016 at 19:47 Initial Consult Date 09/13/16 Type of Consultation: hemeonc Referring Provider: EMILIANO HENDRICKS 24 HR Interval Summary Free Text/Dictation all noted no new events Exam/Review of Systems Vital Signs Vitals Vital Signs Date Time Temp Pulse Resp B/P Pulse Ox O2 Delivery O2 Flow Rate FiO2 10/02/16 21:18 98.4 67 18 170/74 95 10/02/16 08:00 Nasal Cannula 2.0 Intake and Output 10/02/16 10/02/16 10/03/16 15:00 23:00 07:00 Intake Total 400 ml Balance 400 ml Exam CONSTITUTIONAL: No fevers, chills. PULMONARY: No sob CARDIOVASCULAR: No chest pain/palpitations GASTROINTESTINAL: No nausea/vomiting. GENITOURINARY: No hematuria/dysuria. MUSCULOSKELETAL: No myagias/arthalgias. PSYCHIATRIC: The patient denies depression. NEUROLOGIC: No weakness Constitutional: alert, oriented Psych: no complaints Head: normocephalic ENMT: mucosa pink and moist Neck: jvd (8-9 cm water) Respiratory: clear to auscultation Cardiovascular: regular rate and rhythm Gastrointestinal: non-tender, soft Musculoskeletal: muscle tone (normal) Extremities: edema (none) Neurological: other (No focal deficits) Results Result Diagram: 10/02/16 0430 10/02/16 0430 Results 24 hrs Laboratory Tests Test 10/02/16 01:41 10/02/16 04:26 10/02/16 04:30 10/02/16 08:11 Bedside Glucose 109 77 90 Anion Gap 11 Basophils # 0.1 Basophils % 0.8 Blood Urea Nitrogen 16 Calcium Level 8.1 L Carbon Dioxide Level 33 H Chloride Level 99 Creatinine 0.93 Eosinophils # 0.2 Eosinophils % 2.8 Glucose Level 74 Hematocrit 34.4 L Hemoglobin 11.0 L Lymphocytes # 2.1 Lymphocytes % 28.1 Mean Corpuscular Hemoglobin 29.1 Mean Corpuscular Hemoglobin Concent 32.0 Mean Corpuscular Volume 91.0 Mean Platelet Volume 12.5 H Monocytes # 0.9 Monocytes % 11.6 H Neutrophils # 4.2 Neutrophils % 56.4 Nucleated Red Blood Cells # 0.0 Nucleated Red Blood Cells % 0.0 Platelet Count 290 Potassium Level 3.4 L Red Blood Count 3.78 L Red Cell Distribution Width 15.8 H Sodium Level 140 White Blood Count 7.4 Test 10/02/16 12:11 10/02/16 17:17 10/02/16 21:01 Bedside Glucose 98 120 105 Medications Medications Current Medications Ondansetron HCl (Zofran Inj) 4 mg Q6H PRN IV NAUSEA AND/OR VOMITING Last administered on 09/10/16 23:03; Admin Dose 4 MG; Start 09/09/16 at 20:00 Nitroglycerin (Nitroglycerin (Sl Tab) 0.4 Mg) 1 tab Q5M PRN SL CHEST PAIN; Start 09/09/16 at 20:00 Acetaminophen (Tylenol Liquid) 650 mg Q6H PRN PO PAIN LEVEL 1-3 OR FEVER Last administered on 09/26/16 18:37; Admin Dose 650 MG; Start 09/09/16 at 20:00 Morphine Sulfate (morphine) 2 mg Q4H PRN IV PAIN LEVEL 7-10 Last administered on 09/26/16 00:37; Admin Dose 2 MG; Start 09/09/16 at 20:00 Lorazepam (Ativan) 1 mg Q2H PRN IV ANXIETY Last administered on 09/22/16 16:46 ; Admin Dose 1 MG; Start 09/09/16 at 20:00 Glucose (Glutose) 15 gm Q15M PRN PO DECREASED GLUCOSE; Start 09/09/16 at 20:30 Glucose (Glutose) 22.5 gm Q15M PRN PO DECREASED GLUCOSE; Start 09/09/16 at 20: 30 Dextrose (D50w Syringe) 25 ml Q15M PRN IV DECREASED GLUCOSE Last administered on 09/25/16 17:40; Admin Dose 25 ML; Start 09/09/16 at 20:30 Dextrose (D50w Syringe) 50 ml Q15M PRN IV DECREASED GLUCOSE; Start 09/09/16 at 20:30 Glucagon (Glucagen) 1 mg Q15M PRN IM DECREASED GLUCOSE; Start 09/09/16 at 20:30 Glucose (Glutose) 15 gm Q15M PRN BUCCAL DECREASED GLUCOSE Last administered on 09/29/16 20:27; Admin Dose 15 GM; Start 09/09/16 at 20:30 Aspirin (Aspirin) 81 mg DAILY PO Last administered on 10/02/16 09:40; Admin Dose 81 MG; Start 09/12/16 at 09:00 Hydralazine HCl (Apresoline) 10 mg Q4H PRN IV SBP >160 Last administered on 04:00; Admin Dose 10 MG; Start 09/17/16 at 07:00 Docusate Sodium (Colace Liquid Cup) 100 mg Q12 PO Last administered on 20:57; Admin Dose 100 MG; Start 09/17/16 at 09:00 Metoprolol Tartrate (Lopressor) 50 mg BID PO Last administered on 10/02/16 20: 57; Admin Dose 50 MG; Start 09/19/16 at 21:00 Heparin Sodium (Porcine) (Heparin (5000 Units/0.5 ml)) 5,000 unit BID SC Last administered on 10/02/16 21:05; Admin Dose 5,000 UNIT; Start 09/25/16 at 11:00 Hydralazine HCl (Apresoline) 100 mg Q8 PO Last administered on 10/02/16 22:19 ; Admin Dose 100 MG; Start 09/25/16 at 14:00 Insulin Glargine (Lantus) 10 unit DAILY@08 SC Last administered on 3/15/17at 09 :26; Admin Dose 10 UNIT; Start 09/26/16 at 16:00 Famotidine (Pepcid) 20 mg DAILY NGT Last administered on 10/02/16 09:40; Admin Dose 20 MG; Start 09/28/16 at 09:00 Amlodipine Besylate (Norvasc) 5 mg BID PO Last administered on 10/02/16t 20:57 ; Admin Dose 5 MG; Start 09/29/16 at 21:00 Benazepril HCl (Lotensin) 10 mg DAILY PO ; Start 10/03/16 at 09:00 Diagnostic Test (Pha) (Accucheck) 1 ea 02 XX ; Start 10/03/16 at 02:00 JEFF FRANK MD Oct 03, 2016 00:07
[2016-10-03] MEDS: ONDANSETRON 4 MG INJ IV PRN (01:58)
[2016-10-03] MEDS ORDERED: ACCUCHECK AT 2AM (Patients on SS coverage) XX SCH (02:00)
[2016-10-03 02:01] VITALS: BP 158/70; PULSE 65
[2016-10-03 06:02] LABS: CREATININE 0.94 mg/dl (0.44-1.00)
[2016-10-03 06:03] LABS: CALCIUM 8.4 mg/dl (8.4-10.2)
[2016-10-03] MEDS: Insulin NOVOLOG SS MODERATE Algorithm (SS with meals and bedtime) SC SCH ×4 (08:00→20:13)
[2016-10-03 08:37] VITALS: BP 153/67; RESP 21
[2016-10-03] MEDS: INSULIN GLARGINE [LANtus] 3 ML PEN SC SCH (08:42)
[2016-10-03] MEDS: HEPARIN 5,000 UNIT/0.5 ML SYG SC SCH ×2 (08:43→20:14)
[2016-10-03] MEDS: FAMOTIDINE 20 MG TAB NGT SCH (08:44)
[2016-10-03] MEDS: DOCUSATE SODIUM 10 MG/ML (10ML CUP) PO SCH ×2 (08:44→20:10)
[2016-10-03] MEDS: ASPIRIN 81 MG TAB PO SCH (08:44)
[2016-10-03] MEDS: AMLODIPINE 5 MG TAB PO SCH ×2 (08:45→20:12)
[2016-10-03] MEDS: METOPROLOL 50 MG TAB PO SCH ×2 (08:45→20:11)
[2016-10-03] MEDS ORDERED: BENAZEPRIL 10 MG TAB PO SCH ×2 (09:00→21:00)
--- NOTE | 2016-10-03 17:10 | DS ---
Date/Time of Note Date/Time of Note DATE: 10/03/16 TIME: 17:01 Discharge Summary Admission/Discharge Info Admit Date/Time Sep 09, 2016 at 19:47 Discharge Date/Time Final Diagnosis 1. s/p Septic shock - 2/2 Ecoli UTI /Bacteremia, finished and off of antibiotics 2. Acute renal failure r/o CKD- 2/2 to ATN from sepsis, resolved 3. Type II DM - controlled on insulins 4. Metabolic / Lactic acidosis 2/2 #1: resolved 5. Acute Hypercapnic and Hypoxemic Resp failure - s/p self extubation 6. Elevated trop, follow up with cardiology 7. Thrombocytopenia, resolved 8. Iron deficiency: + occult test stool. No signs of GI bleeding presently. S/ p EGD with gastritis findings only. s/p pRBC transfusion/ and IV iron infusion 9. Large periumbilical hernia, outpatient surgery consult 10. Hypertension, controlled 11. DVT prophylaxis: heparin Patient Condition: Stable Hx of Present Illness 75 yo female with a past medical history of type II DM, chronic pain who complains of weakness and decreased urinary output for the last several days. She states that she has increasing fatigue. Associated with nausea and 4 episodes of NBNB vomitus. Her urine output has decreased dramatically and is not getting any better at this time. Denies any discharge, hematuria, or increased frequency. She complains of chills, and mild flank pain on the right in comparison to the left. Denies any chest pain, shortness of breath, recent travel, headaches, sick contacts, dizziness, or other constitutional symptoms. Hospital Course patient developed sepsis and septic shock, needed levophed, respiratory failure that she was intubated. She had acute renal failure, lactic acidosis. She was on aggressive treatment for sepsis with antibiotics, along with supportive treatment, symptoms and condition improved. She got extubated, off of levophed. Her renal failure resolved. Patient has a large ventral hernia. She will have outpatient surgery consultation for elective surgical repair. Follow-up Plan PCP one week Surgery consult in 4 weeks Pending Labs Laboratory Tests Test 10/02/16 17:17 10/02/16 21:01 10/03/16 04:30 10/03/16 07:47 Bedside Glucose 120mg/dL (70-220) 105mg/dL (70-220) 79mg/dL (70-220) Anion Gap 8 (8-16) Blood Urea Nitrogen 14mg/dl (7-20) Calcium Level 8.4mg/dl (8.4-10.2) Carbon Dioxide Level 33mmol/L (21-31) Chloride Level 102mmol/L (97-110) Creatinine 0.94mg/dl (0.44-1.00) Glucose Level 68mg/dl (70-220) Potassium Level 4.0mmol/L (3.5-5.1) Sodium Level 139mmol/L (135-144) Test 10/03/16 11:38 10/03/16 16:55 Bedside Glucose 101mg/dL (70-220) 87mg/dL (70-220) KRISTEN ROSADO MD Oct 03, 2016 17:10
--- NOTE | 2016-10-03 18:39 | CONS ---
Date/Time of Note Date/Time of Note DATE: 10/03/16 TIME: 18:37 Assessment/Plan Assessment/Plan Chief Complaint/Hosp Course IMPRESSION: 1. Positive troponin, assess significance, assess for true acute coronary syndrome.-now downtrending in setting ongoing renal failure 2. Hypotension, shock state. Rule out cardiac etiology-EF 45-50 by echo this admit-improved off of pressors 3. Abnormal electrocardiogram, assess for acute coronary syndrome. 4. Respiratory failure s/p extubation-improving off of BIPAP currently 5. Leukocytosis. 6. Anemia. 7. Thrombocytopenia-improved 8. Renal failure-ongoing/stable to slightly improved 9. Bacteremia with gram negative rods. 10.CHF-systolic and diastolic acute EF 45-50 by echo this admit REcc: -Tele -continue abx's and f/u ca data -Continue asa -Continue BB/hydralazine/CCB and increase acei to improve BP -Follow volume status closely with intermittent spot dosing of lasix -Continue bronchodilators Problems: Consultation Date/Type/Reason Admit Date/Time Sep 09, 2016 at 19:47 Initial Consult Date 09/11/16 Type of Consultation: Cardiology Reason for Consultation positivr troponin Referring Provider: EMILIANO HENDRICKS Exam/Review of Systems Vital Signs Vitals Vital Signs Date Time Temp Pulse Resp B/P Pulse Ox O2 Delivery O2 Flow Rate FiO2 10/03/16 08:37 98.0 67 21 153/67 95 10/03/16 08:00 Nasal Cannula 2.0 Intake and Output 10/02/16 10/02/16 10/03/16 15:00 23:00 07:00 Intake Total 400 ml 400 ml Balance 400 ml 400 ml Exam Review of Systems: CONSTITUTIONAL: No fevers, chills. PULMONARY: No sob CARDIOVASCULAR: No chest pain/palpitations GASTROINTESTINAL: No nausea/vomiting. GENITOURINARY: No hematuria/dysuria. MUSCULOSKELETAL: No myagias/arthalgias. PSYCHIATRIC: The patient denies depression. NEUROLOGIC: No weakness Constitutional: alert, oriented Psych: no complaints Head: normocephalic ENMT: mucosa pink and moist Neck: jvd (8-9 cm water) Respiratory: clear to auscultation Cardiovascular: regular rate and rhythm Gastrointestinal: non-tender, soft Musculoskeletal: muscle tone (normal) Extremities: edema (none) Neurological: other (No focal deficits) Results Result Diagram: 10/02/16 0430 10/03/16 0430 Results 24 hrs Laboratory Tests Test 10/02/16 21:01 10/03/16 04:30 10/03/16 07:47 10/03/16 11:38 Bedside Glucose 105 79 101 Anion Gap 8 Blood Urea Nitrogen 14 Calcium Level 8.4 Carbon Dioxide Level 33 H Chloride Level 102 Creatinine 0.94 Glucose Level 68 L Potassium Level 4.0 Sodium Level 139 Test 10/03/16 16:55 Bedside Glucose 87 Medications Medications Current Medications Ondansetron HCl (Zofran Inj) 4 mg Q6H PRN IV NAUSEA AND/OR VOMITING Last administered on 10/03/16 01:58; Admin Dose 4 MG; Start 09/09/16 at 20:00 Nitroglycerin (Nitroglycerin (Sl Tab) 0.4 Mg) 1 tab Q5M PRN SL CHEST PAIN; Start 09/09/16 at 20:00 Acetaminophen (Tylenol Liquid) 650 mg Q6H PRN PO PAIN LEVEL 1-3 OR FEVER Last administered on 09/26/16 18:37; Admin Dose 650 MG; Start 09/09/16 at 20:00 Morphine Sulfate (morphine) 2 mg Q4H PRN IV PAIN LEVEL 7-10 Last administered on 09/26/16 00:37; Admin Dose 2 MG; Start 09/09/16 at 20:00 Lorazepam (Ativan) 1 mg Q2H PRN IV ANXIETY Last administered on 09/22/16 16:46 ; Admin Dose 1 MG; Start 09/09/16 at 20:00 Glucose (Glutose) 15 gm Q15M PRN PO DECREASED GLUCOSE; Start 09/09/16 at 20:30 Glucose (Glutose) 22.5 gm Q15M PRN PO DECREASED GLUCOSE; Start 09/09/16 at 20: 30 Dextrose (D50w Syringe) 25 ml Q15M PRN IV DECREASED GLUCOSE Last administered on 09/25/16 17:40; Admin Dose 25 ML; Start 09/09/16 at 20:30 Dextrose (D50w Syringe) 50 ml Q15M PRN IV DECREASED GLUCOSE; Start 09/09/16 at 20:30 Glucagon (Glucagen) 1 mg Q15M PRN IM DECREASED GLUCOSE; Start 09/09/16 at 20:30 Glucose (Glutose) 15 gm Q15M PRN BUCCAL DECREASED GLUCOSE Last administered on 09/29/16 20:27; Admin Dose 15 GM; Start 09/09/16 at 20:30 Aspirin (Aspirin) 81 mg DAILY PO Last administered on 10/03/16 08:44; Admin Dose 81 MG; Start 09/12/16 at 09:00 Hydralazine HCl (Apresoline) 10 mg Q4H PRN IV SBP >160 Last administered on 04:00; Admin Dose 10 MG; Start 09/17/16 at 07:00 Docusate Sodium (Colace Liquid Cup) 100 mg Q12 PO Last administered on 20:57; Admin Dose 100 MG; Start 09/17/16 at 09:00 Metoprolol Tartrate (Lopressor) 50 mg BID PO Last administered on 10/03/16 08: 45; Admin Dose 50 MG; Start 09/19/16 at 21:00 Heparin Sodium (Porcine) (Heparin (5000 Units/0.5 ml)) 5,000 unit BID SC Last administered on 10/03/16 08:43; Admin Dose 5,000 UNIT; Start 09/25/16 at 11:00 Hydralazine HCl (Apresoline) 100 mg Q8 PO Last administered on 10/03/16 13:14 ; Admin Dose 100 MG; Start 09/25/16 at 14:00 Insulin Glargine (Lantus) 10 unit DAILY@08 SC Last administered on 10/03/16 08 :42; Admin Dose 10 UNIT; Start 09/26/16 at 16:00 Famotidine (Pepcid) 20 mg DAILY NGT Last administered on 10/03/16 08:44; Admin Dose 20 MG; Start 09/28/16 at 09:00 Amlodipine Besylate (Norvasc) 5 mg BID PO Last administered on 10/03/16 08:45 ; Admin Dose 5 MG; Start 09/29/16 at 21:00 Benazepril HCl (Lotensin) 10 mg DAILY PO Last administered on 10/03/16 08:45; Admin Dose 10 MG; Start 10/03/16 at 09:00 Diagnostic Test (Pha) (Accucheck) 1 ea 02 XX ; Start 10/03/16 at 02:00 ALLISON CONTRERAS Oct 03, 2016 18:38
--- NOTE | 2016-10-03 18:44 | CONS ---
Date/Time of Note Date/Time of Note DATE: 10/03/16 TIME: 18:43 Assessment/Plan Assessment/Plan Chief Complaint/Hosp Course IMPRESSION: 1. Patient has SHALOM BETTER 2. S/P ATN 3. S/P vdrf NOW ON BIPAP 4.. The patient has Escherichia coli bacteremia, E. coli urinary tract infection. 5 hypokalemia 6 pleural effusion on lasix 7 hypernatremia po water BETTER PLAN CK BMP Problems: Consultation Date/Type/Reason Admit Date/Time Sep 09, 2016 at 19:47 Initial Consult Date 09/11/16 Type of Consultation: renal Referring Provider: EMILIANO HENDRICKS 24 HR Interval Summary Constitutional: no complaints Exam/Review of Systems Vital Signs Vitals Vital Signs Date Time Temp Pulse Resp B/P Pulse Ox O2 Delivery O2 Flow Rate FiO2 10/03/16 08:37 98.0 67 21 153/67 95 10/03/16 08:00 Nasal Cannula 2.0 Intake and Output 10/02/16 10/02/16 10/03/16 15:00 23:00 07:00 Intake Total 400 ml 400 ml Balance 400 ml 400 ml Exam Respiratory: clear to auscultation Cardiovascular: regular rate and rhythm Gastrointestinal: soft Results Result Diagram: 10/02/16 0430 10/03/16 0430 Results 24 hrs Laboratory Tests Test 10/02/16 21:01 10/03/16 04:30 10/03/16 07:47 10/03/16 11:38 Bedside Glucose 105 79 101 Anion Gap 8 Blood Urea Nitrogen 14 Calcium Level 8.4 Carbon Dioxide Level 33 H Chloride Level 102 Creatinine 0.94 Glucose Level 68 L Potassium Level 4.0 Sodium Level 139 Test 10/03/16 16:55 Bedside Glucose 87 Medications Medications Current Medications Ondansetron HCl (Zofran Inj) 4 mg Q6H PRN IV NAUSEA AND/OR VOMITING Last administered on 10/03/16 01:58; Admin Dose 4 MG; Start 09/09/16 at 20:00 Nitroglycerin (Nitroglycerin (Sl Tab) 0.4 Mg) 1 tab Q5M PRN SL CHEST PAIN; Start 09/09/16 at 20:00 Acetaminophen (Tylenol Liquid) 650 mg Q6H PRN PO PAIN LEVEL 1-3 OR FEVER Last administered on 09/26/16 18:37; Admin Dose 650 MG; Start 09/09/16 at 20:00 Morphine Sulfate (morphine) 2 mg Q4H PRN IV PAIN LEVEL 7-10 Last administered on 09/26/16 00:37; Admin Dose 2 MG; Start 09/09/16 at 20:00 Lorazepam (Ativan) 1 mg Q2H PRN IV ANXIETY Last administered on 09/22/16 16:46 ; Admin Dose 1 MG; Start 09/09/16 at 20:00 Glucose (Glutose) 15 gm Q15M PRN PO DECREASED GLUCOSE; Start 09/09/16 at 20:30 Glucose (Glutose) 22.5 gm Q15M PRN PO DECREASED GLUCOSE; Start 09/09/16 at 20: 30 Dextrose (D50w Syringe) 25 ml Q15M PRN IV DECREASED GLUCOSE Last administered on 09/25/16 17:40; Admin Dose 25 ML; Start 09/09/16 at 20:30 Dextrose (D50w Syringe) 50 ml Q15M PRN IV DECREASED GLUCOSE; Start 09/09/16 at 20:30 Glucagon (Glucagen) 1 mg Q15M PRN IM DECREASED GLUCOSE; Start 09/09/16 at 20:30 Glucose (Glutose) 15 gm Q15M PRN BUCCAL DECREASED GLUCOSE Last administered on 09/29/16 20:27; Admin Dose 15 GM; Start 09/09/16 at 20:30 Aspirin (Aspirin) 81 mg DAILY PO Last administered on 10/03/16 08:44; Admin Dose 81 MG; Start 09/12/16 at 09:00 Hydralazine HCl (Apresoline) 10 mg Q4H PRN IV SBP >160 Last administered on 04:00; Admin Dose 10 MG; Start 09/17/16 at 07:00 Docusate Sodium (Colace Liquid Cup) 100 mg Q12 PO Last administered on 20:57; Admin Dose 100 MG; Start 09/17/16 at 09:00 Metoprolol Tartrate (Lopressor) 50 mg BID PO Last administered on 10/03/16 08: 45; Admin Dose 50 MG; Start 09/19/16 at 21:00 Heparin Sodium (Porcine) (Heparin (5000 Units/0.5 ml)) 5,000 unit BID SC Last administered on 10/03/16 08:43; Admin Dose 5,000 UNIT; Start 09/25/16 at 11:00 Hydralazine HCl (Apresoline) 100 mg Q8 PO Last administered on 10/03/16 13:14 ; Admin Dose 100 MG; Start 09/25/16 at 14:00 Insulin Glargine (Lantus) 10 unit DAILY@08 SC Last administered on 10/03/16 08 :42; Admin Dose 10 UNIT; Start 09/26/16 at 16:00 Famotidine (Pepcid) 20 mg DAILY NGT Last administered on 10/03/16 08:44; Admin Dose 20 MG; Start 09/28/16 at 09:00 Amlodipine Besylate (Norvasc) 5 mg BID PO Last administered on 10/03/16 08:45 ; Admin Dose 5 MG; Start 09/29/16 at 21:00 Diagnostic Test (Pha) (Accucheck) 1 ea 02 XX ; Start 10/03/16 at 02:00 Benazepril HCl (Lotensin) 10 mg BID PO ; Start 10/03/16 at 21:00; Status QUITA ROBLES MD Oct 03, 2016 18:44
[2016-10-03 20:00] VITALS: BP 153/67; PULSE 63; RESP 18
--- NOTE | 2016-10-03 21:09 | CONS ---
Date/Time of Note Date/Time of Note DATE: 10/03/16 TIME: 21:08 Assessment/Plan Assessment/Plan Chief Complaint/Hosp Course IMPRESSION: thrombocytopenia in pt with severe sepsis, exposed to multiple meds with pos thrombocytopenic effect, including VANCO, ZOSYN, HEPARIN,CEFAZOLIN- RESOLVED NO EVIDENCE OF DIC cont to monitor blood count closely HIPA- NEG PLATELET COUNT NORMALIZED Leukocytosis. REACTIVE MONITOR IMPROVING Anemia. C/W ACD MONITOR BLOOD COUNT CLOSELY TRANSFUSE NEEDED Severe Sepsis with septic shock 2/2 Ecoli UTI /Bacteremia Acute renal failure - 2/2 to ATN from sepsis Type II DM - Hyperglycemic on D5W Metabolic / Lactic acidosis 2/2 #1 Acute resp failure now ventilator dependent NSTEMI versus demand ischemia Positive troponin, assess significance, assess for true acute coronary syndrome. Metabolic acidosis respiratory failure, vent dependent incomplete database Thank you for allowing me to take part in the care of this patient. I will continue to follow along very closely with you. Further recommendations will be made as the patient progresses through her inpatient hospital clinical course. Problems: Consultation Date/Type/Reason Admit Date/Time Sep 09, 2016 at 19:47 Initial Consult Date 09/13/16 Type of Consultation: hemeon Referring Provider: EMILIANO HENDRICKS 24 HR Interval Summary Free Text/Dictation all noted count stable no bleeding Exam/Review of Systems Vital Signs Vitals Vital Signs Date Time Temp Pulse Resp B/P Pulse Ox O2 Delivery O2 Flow Rate FiO2 10/03/16 08:37 98.0 67 21 153/67 95 10/03/16 08:00 Nasal Cannula 2.0 Intake and Output 10/02/16 10/02/16 10/03/16 15:00 23:00 07:00 Intake Total 400 ml 400 ml Balance 400 ml 400 ml Exam CONSTITUTIONAL: No fevers, chills. PULMONARY: No sob CARDIOVASCULAR: No chest pain/palpitations GASTROINTESTINAL: No nausea/vomiting. GENITOURINARY: No hematuria/dysuria. MUSCULOSKELETAL: No myagias/arthalgias. PSYCHIATRIC: The patient denies depression. NEUROLOGIC: No weakness Constitutional: alert, oriented Psych: no complaints Head: normocephalic ENMT: mucosa pink and moist Neck: jvd (8-9 cm water) Respiratory: clear to auscultation Cardiovascular: regular rate and rhythm Gastrointestinal: non-tender, soft Musculoskeletal: muscle tone (normal) Extremities: edema (none) Neurological: other (No focal deficits) Results Result Diagram: 10/02/16 0430 10/03/16 0430 Results 24 hrs Laboratory Tests Test 10/03/16 04:30 10/03/16 07:47 10/03/16 11:38 10/03/16 16:55 Anion Gap 8 Blood Urea Nitrogen 14 Calcium Level 8.4 Carbon Dioxide Level 33 H Chloride Level 102 Creatinine 0.94 Glucose Level 68 L Potassium Level 4.0 Sodium Level 139 Bedside Glucose 79 101 87 Test 10/03/16 19:58 Bedside Glucose 87 Medications Medications Current Medications Ondansetron HCl (Zofran Inj) 4 mg Q6H PRN IV NAUSEA AND/OR VOMITING Last administered on 10/03/16 01:58; Admin Dose 4 MG; Start 09/09/16 at 20:00 Nitroglycerin (Nitroglycerin (Sl Tab) 0.4 Mg) 1 tab Q5M PRN SL CHEST PAIN; Start 09/09/16 at 20:00 Acetaminophen (Tylenol Liquid) 650 mg Q6H PRN PO PAIN LEVEL 1-3 OR FEVER Last administered on 09/26/16 18:37; Admin Dose 650 MG; Start 09/09/16 at 20:00 Morphine Sulfate (morphine) 2 mg Q4H PRN IV PAIN LEVEL 7-10 Last administered on 09/26/16 00:37; Admin Dose 2 MG; Start 09/09/16 at 20:00 Lorazepam (Ativan) 1 mg Q2H PRN IV ANXIETY Last administered on 09/22/16 16:46 ; Admin Dose 1 MG; Start 09/09/16 at 20:00 Glucose (Glutose) 15 gm Q15M PRN PO DECREASED GLUCOSE; Start 09/09/16 at 20:30 Glucose (Glutose) 22.5 gm Q15M PRN PO DECREASED GLUCOSE; Start 09/09/16 at 20: 30 Dextrose (D50w Syringe) 25 ml Q15M PRN IV DECREASED GLUCOSE Last administered on 09/25/16 17:40; Admin Dose 25 ML; Start 09/09/16 at 20:30 Dextrose (D50w Syringe) 50 ml Q15M PRN IV DECREASED GLUCOSE; Start 09/09/16 at 20:30 Glucagon (Glucagen) 1 mg Q15M PRN IM DECREASED GLUCOSE; Start 09/09/16 at 20:30 Glucose (Glutose) 15 gm Q15M PRN BUCCAL DECREASED GLUCOSE Last administered on 09/29/16 20:27; Admin Dose 15 GM; Start 09/09/16 at 20:30 Aspirin (Aspirin) 81 mg DAILY PO Last administered on 10/03/16 08:44; Admin Dose 81 MG; Start 09/12/16 at 09:00 Hydralazine HCl (Apresoline) 10 mg Q4H PRN IV SBP >160 Last administered on 04:00; Admin Dose 10 MG; Start 09/17/16 at 07:00 Docusate Sodium (Colace Liquid Cup) 100 mg Q12 PO Last administered on 20:10; Admin Dose 100 MG; Start 09/17/16 at 09:00 Metoprolol Tartrate (Lopressor) 50 mg BID PO Last administered on 10/03/16 20: 11; Admin Dose 50 MG; Start 09/19/16 at 21:00 Heparin Sodium (Porcine) (Heparin (5000 Units/0.5 ml)) 5,000 unit BID SC Last administered on 10/03/16 20:14; Admin Dose 5,000 UNIT; Start 09/25/16 at 11:00 Hydralazine HCl (Apresoline) 100 mg Q8 PO Last administered on 10/03/16 13:14 ; Admin Dose 100 MG; Start 09/25/16 at 14:00 Insulin Glargine (Lantus) 10 unit DAILY@08 SC Last administered on 10/03/16 08 :42; Admin Dose 10 UNIT; Start 09/26/16 at 16:00 Famotidine (Pepcid) 20 mg DAILY NGT Last administered on 10/03/16 08:44; Admin Dose 20 MG; Start 09/28/16 at 09:00 Amlodipine Besylate (Norvasc) 5 mg BID PO Last administered on 10/03/16 20:12 ; Admin Dose 5 MG; Start 09/29/16 at 21:00 Diagnostic Test (Pha) (Accucheck) 1 ea 02 XX ; Start 10/03/16 at 02:00 Benazepril HCl (Lotensin) 10 mg BID PO Last administered on 10/03/16 20:11; Admin Dose 10 MG; Start 10/03/16 at 21:00 JEFF FRANK MD Oct 03, 2016 21:09
== END 2016-10-03 21:54 | DRG 870 ==
LOC: E/R 16:08 → ICU 19:47 → MS4 09-26 18:08 → PP2 10-02 00:21
PROVIDERS: ADMIT Student in an Organized Health Care Education/Training Program; ATTEND Student in an Organized Health Care Education/Training Program
PROC: 05HM33Z Insertion of Infusion Device into Right Internal Jugular Vein, Percutaneous Approach (ICD-10-PCS; 2016-09-10)
PROC: 5A1955Z Respiratory Ventilation, Greater than 96 Consecutive Hours (ICD-10-PCS; principal; 2016-09-11)
PROC: 0DB68ZX Excision of Stomach, Via Natural or Artificial Opening Endoscopic, Diagnostic (ICD-10-PCS; 2016-09-18)
DX: A41.51 Sepsis due to Escherichia coli [E. coli] (principal); N17.0 Acute kidney failure with tubular necrosis; J96.01 Acute respiratory failure with hypoxia; J96.02 Acute respiratory failure with hypercapnia; G93.40 Encephalopathy, unspecified; R65.21 Severe sepsis with septic shock; E87.2 Acidosis; D69.6 Thrombocytopenia, unspecified; I50.41 Acute combined systolic (congestive) and diastolic (congestive) heart failure; N39.0 Urinary tract infection, site not specified; E87.0 Hyperosmolality and hypernatremia; I13.0 Hypertensive heart and chronic kidney disease with heart failure and stage 1 through stage 4 chronic kidney disease, or unspecified chronic kidney disease; L03.113 Cellulitis of right upper limb; N18.9 Chronic kidney disease, unspecified; R74.8 Abnormal levels of other serum enzymes; K42.9 Umbilical hernia without obstruction or gangrene; E11.22 Type 2 diabetes mellitus with diabetic chronic kidney disease; D50.9 Iron deficiency anemia, unspecified; E87.6 Hypokalemia; K29.70 Gastritis, unspecified, without bleeding; G89.29 Other chronic pain; Z79.4 Long term (current) use of insulin
CPT/HCPCS: 31500; 36415; 36430; 36600; 70450; 71010; 76775; 80048; 80053; 80061; 80069; 80076; 80202; 81001; 81003; 82270; 82306; 82378; 82550; 82553; 82570; 82728; 82746; 82803; 82962; 83036; 83540; 83605; 83615; 83735; 83970; 84100; 84155; 84300; 84443; 84484; 84560; 85025; 85045; 85049; 85362; 85378; 85384; 85610; 85651; 85670; 85730; 86022; 86644; 86704; 86709; 86803; 86850; 86900; 86901; 86920; 87040; 87081; 87086; 87340; 88305; 88312; 89190; 92526; 92610; 93005; 93306; 93971; 94002; 94003; 94640; 94660; 94664; 94770; 96365; 96368; 97110; 97116; 97162; 97530; J1940; J0360; J0610; J0690; J0696; J1200; J1630; J1644; J1815; J1953; J2060; J2250; J2270; J2405; J2543; J2916; J3010; J3370; J3475; J3480; J7030; J7040; J7050; J7070; P9016; P9035; P9047; P9059; P9612

== ENCOUNTER 2016-10-03 18:52 | Inpatient (IN) | payer OTHER ==
[~2016-10-03] VITALS: Ht 154.9 cm; Wt 60.1 kg
[2016-10-03 23:00] VITALS: BP 142/62; PULSE 62; RESP 16; Ht 154.9 cm; Wt 60.1 kg
[2016-10-04] MEDS ORDERED: hydrALAzine 20 MG INJ IV PRN (00:30)
[2016-10-04] MEDS ORDERED: LORAZEPAM 2 MG INJ IV PRN (00:30)
[2016-10-04] MEDS ORDERED: LACTULOSE 30ML CUP PO PRN (00:30)
[2016-10-04] MEDS ORDERED: GLUCOSE GEL 15 GRAM TUBE BUCCAL PRN (00:30)
[2016-10-04] MEDS ORDERED: DEXTROSE 50% 50 ML SYRINGE IV PRN ×2 (00:30)
[2016-10-04] MEDS ORDERED: BISACODYL 10 MG SUPP PR PRN (00:30)
[2016-10-04] MEDS ORDERED: GLUCAGON 1 MG INJ IM PRN (00:30)
[2016-10-04] MEDS ORDERED: morphine 2 MG INJ IV PRN (00:30)
[2016-10-04] MEDS ORDERED: GLUCOSE GEL 15 GRAM TUBE PO PRN ×2 (00:30)
[2016-10-04] MEDS ORDERED: NITROGLYCERIN (SL) 0.4 MG TAB SL PRN (00:30)
[2016-10-04 00:59] LABS: ADD UMIC YES; URINE BILIRUBIN (Dip) NEGATIVE (NEGATIVE); URINE BLOOD (Dip) NEGATIVE (NEGATIVE); URINE COLOR LT. YELLOW (YELLOW); URINE GLUCOSE (Dip) NEGATIVE (NEGATIVE); URINE KETONES (Dip) NEGATIVE (NEGATIVE); URINE LEUKOCYTE ESTERASE (Dip) 1+ (NEGATIVE); URINE NITRITE (Dip) NEGATIVE (NEGATIVE); URINE TOTAL PROTEIN (Dip) NEGATIVE (NEGATIVE); URINE UROBILINOGEN (Dip) 0.2 E.U./dL (0.1-1.0)
[2016-10-04] MEDS: LEVALBUTEROL (HFA) 15 GM INHALER INH SCH ×6 (01:15→21:41)
[2016-10-04 01:22] LABS: BACTERIA,URINE MODERATE; SQUAMOUS EPITHELIAL CELL,UR MODERATE; URINE RBCS 0-2 /HPF (0)
[2016-10-04] MEDS: LEVALBUTEROL (NEB) 1.25 MG/0.5 ML AMP INH SCH ×2 (02:00→08:00)
[2016-10-04] MEDS: Insulin NOVOLOG SS MODERATE Algorithm (SS with meals and bedtime) SC SCH ×4 (07:35→21:00)
[2016-10-04 07:42] LABS: ADD SCAN DIFF NO; BASOPHIL # 0.1 10^3/ul (0.0-0.1); EOSINOPHILS # 0.3 10^3/ul (0.0-0.5); EOSINOPHILS % 3.3 % (0.0-7.0); HEMATOCRIT 36.6 % (37.0-47.0); HEMOGLOBIN 11.6 g/dl (12.0-16.0); LYMPHOCYTES # 2.5 10^3/ul (0.8-2.9); MEAN CORPUSCULAR HEMOGLOBIN 28.6 pg (29.0-33.0); MEAN CORPUSCULAR HGB CONC 31.7 g/dl (32.0-37.0); MEAN CORPUSCULAR VOLUME 90.4 fl (82.0-101.0); MEAN PLATELET VOLUME 11.8 fl (7.4-10.4); MONOCYTE # 0.9 10^3/ul (0.3-0.9); MONOCYTES % 11.6 % (0.0-11.0); NEUTROPHIL # 4.1 10^3/ul (1.6-7.5); NEUTROPHILS % 51.8 % (39.0-77.0); PLATELET COUNT 312 10^3/UL (140-415); RED BLOOD COUNT 4.05 10^6/ul (4.20-5.40); RED CELL DISTRIBUTION WIDTH 15.8 % (11.5-14.5); WHITE BLOOD COUNT 7.9 10^3/ul (4.8-10.8)
[2016-10-04 08:00] VITALS: BP 130/60; PULSE 72; RESP 21
[2016-10-04 08:01] LABS: ALBUMIN 3.1 g/dl (3.3-4.9)
[2016-10-04 08:02] LABS: POTASSIUM 3.8 mmol/L (3.5-5.1)
[2016-10-04 08:04] LABS: ALBUMIN/GLOBULIN RATIO 0.86; BILIRUBIN,INDIRECT 0.3 mg/dl (0-1.1); BILIRUBIN,TOTAL 0.3 mg/dl (0.2-1.3); CREATININE 0.92 mg/dl (0.44-1.00); TOTAL PROTEIN 6.7 g/dl (6.1-8.1)
[2016-10-04 08:05] LABS: CALCIUM 8.5 mg/dl (8.4-10.2)
[2016-10-04] MEDS: ASPIRIN 81 MG TAB PO SCH (08:41)
[2016-10-04] MEDS: FAMOTIDINE 20 MG TAB PO SCH (08:41)
[2016-10-04] MEDS: BENAZEPRIL 10 MG TAB PO SCH ×2 (08:42→21:41)
[2016-10-04] MEDS: AMLODIPINE 5 MG TAB PO SCH ×2 (08:42→21:40)
[2016-10-04] MEDS: METOPROLOL 50 MG TAB PO SCH ×2 (08:42→21:41)
[2016-10-04] MEDS: HEPARIN 5,000 UNIT/0.5 ML SYG SC SCH ×2 (08:43→21:57)
[2016-10-04] MEDS: INSULIN GLARGINE [LANtus] 3 ML PEN SC SCH (08:44)
[2016-10-04] MEDS ORDERED: DOCUSATE SODIUM 10 MG/ML (10ML CUP) PO SCH (09:00)
[2016-10-04] MEDS: ONDANSETRON 4 MG INJ IV PRN (09:32)
[2016-10-04] MEDS: DOCUSATE SODIUM 100 MG CAP PO SCH ×2 (10:30→21:40)
[2016-10-04] MEDS ORDERED: LEVALBUTEROL (NEB) 1.25 MG/0.5 ML AMP INH PRN (10:30)
--- NOTE | 2016-10-04 12:35 | HP ---
DATE OF ADMISSION: 10/03/2016 REASON FOR ADMISSION: Generalized weakness, fatigue. HISTORY OF PRESENT ILLNESS: This is an unfortunate 75-year-old lady transferred from [facility] where she was originally admitted on 09/09/2016 with septic shock secondary to Escher ichia coli bacteremia, acute renal failure, hypercapnic and hypoxemic respiratory failure. She had a prolonged course in the intensive care unit where she eventually self-extubated. Family requested not for reintubation. Since that time she had extensive recovery on the telemetry unit requiring t reatment for anemia where endoscopy showed gastritis, in addition transfusion of packed red blood ce lls. Following stabilization, she has been transferred to acute rehab unit where she continues phys ical therapy, continues with current medications. PAST MEDICAL HISTORY: As above. MEDICATIONS: Per chart. ALLERGIES: NONE. SOCIAL HISTORY: Nonsmoker, no alcohol, no history of drug use. FAMILY HISTORY: Noncontributory. REVIEW OF SYSTEMS: A 12-point review of systems was negative other than that mentioned above. PHYSICAL EXAMINATION: GENERAL: Elderly-appearing lady, appears comfortable at rest, no acute distress. VITAL SIGNS: Currently afebrile, pulse is 72, blood pressure 130/60, O2 sat 96%, FIO2 of room air. NECK: Supple. No JVD or lymphadenopathy. CARDIAC: S1, S2, no added sounds or murmurs. LUNGS: Clear to auscultation bilaterally. ABDOMEN: Soft, nontender. No guarding or rebound. EXTREMITIES: No cyanosis, clubbing, or edema. NEUROLOGIC: Generalized weakness. LABORATORY DATA: White count 7.9, hemoglobin 11.6, platelets 312. BUN 13, creatinine 0.92. Most r ecent chest x-ray was within normal limits except for small bilateral pleural effusions. IMPRESSION AND PLAN: 1. Escherichia coli, septic shock. 2. Status post respiratory failure. 3. Persistent nausea and vomiting of unclear etiology, may require GI evaluation. 4. Renal insufficiency. 5. Aspiration risk. The patient to continue with physical therapy, pulmonary toilet, antibiotics as needed. DVT and GI prophylaxis. Possible GI evaluation. She may have peripheral neuropathy with gastroparesis which c ould be the cause of persistent nausea, vomiting. Dictated By: PEDRO YORK/ARLENE Conf#: [id number] [facility]#: [id number]
--- NOTE | 2016-10-04 13:00 | CONS ---
DATE OF ADMISSION: 10/03/2016 DATE OF CONSULTATION: 10/04/2016 TYPE OF CONSULTATION: Rehabilitation post-admission physician evaluation REHABILITATION IMPAIRMENT CATEGORY: Toxic metabolic encephalopathy. ACTIVE COMORBIDITIES: 1. Status post respiratory failure requiring intubation and eventual extubation. 2. Status post sepsis and septic shock. 3. Acute on chronic kidney disease. 4. Diabetes mellitus type 2. 5. Anemia. 6. Ventral hernia. 7. Hypertension. 8. Impairments in self-care, mobility and cognition. 9. Dysphagia. HISTORY OF PRESENT ILLNESS: The patient is a pleasant 75-year-old female with a history of multiple medical comorbidities, who was admitted with increasing weakness, decreased urinary output and note d to have septic shock. The patient's hospital course was also notable for respiratory failure requ iring intubation, acute renal failure, metabolic acidosis, dysphagia and anemia. The patient eventu ally self-extubated, and had gradual improvement in medical status. The patient has now been cleare d to transfer to the rehabilitation unit for comprehensive interdisciplinary rehab care. FUNCTIONAL HISTORY: Prior to recent events, she was independent in self-care tasks and mobility. C urrently, she requires maximal assist for self-care and mobility tasks. I have reviewed the preadmission screen and the patient's current functional status is consistent wi th the preadmission screen. SOCIAL HISTORY: The patient lives at home with family and hopes to return there upon discharge. PAST MEDICAL HISTORY: 1. Diabetes mellitus type 2. 2. Chronic kidney disease. 3. Hypertension. 4. Ventral hernia. 5. Chronic low back pain. CURRENT MEDICATIONS: 1. Norvasc 5 mg p.o. b.i.d. 2. Aspirin 81 mg p.o. daily. 3. Lotensin 10 mg p.o. b.i.d. 4. Insulin sliding scale. 5. Pepcid 20 mg p.o. daily. 6. Heparin 5000 units subcutaneous b.i.d. 7. Apresoline 100 mg p.o. q.8h. 8. Lantus 10 units subcutaneous daily. 9. Levalbuterol inhaler. 10. Ativan p.r.n. 11. Lopressor 50 mg p.o. b.i.d. ALLERGIES: THE PATIENT WITH NO KNOWN DRUG ALLERGIES. PHYSICAL EXAMINATION: VITAL SIGNS: The patient is currently afebrile with stable vital signs. HEENT: Extraocular motions are intact. Oropharynx clear. NECK: Supple. LUNGS: Clear anteriorly. CARDIAC: S1, S2. ABDOMEN: Soft, nontender, positive bowel sounds. NEUROLOGIC: She is awake and alert. She is oriented to person and hospital. She will follow simpl e 1-step commands. She demonstrates antigravity strength in bilateral upper extremity and lower ext remity. She does have impaired dynamic balance. PLAN: The patient has been admitted for comprehensive interdisciplinary acute rehab and is anticipa cris to tolerate 3 hours of daily therapy in divided doses for at least 5/7 days a week. The treatme nt plan will include: 1. Physical therapy to focus on bed mobility, transfers, and household ambulation with the goal of having patient reach standby assist level. 2. Occupational therapy to focus on hygiene, grooming, dressing, bathing, and toileting activities with the goal of having the patient reach standby assist level. 3. Rehabilitation nursing for carryover of therapeutic interventions, the goal of continent of mirta l and bladder, and the goal of patient and family education with regards to the aforementioned issue s. 4. Speech therapy for full cognitive evaluation and retraining in addition to dysphagia management with the goal of having the patient return to baseline cognition and meet nutritional needs by mouth . REHABILITATION BARRIER: Dysphagia. INTERVENTION FOR BARRIER: Speech therapy. ESTIMATED LENGTH OF STAY: 12 days. DISPOSITION GOAL: Home. I acknowledge that I performed a full physical examination on this patient within 24 hours of admiss ion to the rehabilitation unit. I believe the patient is a good candidate for comprehensive interdi sciplinary rehab care and is anticipated to make reasonable goals in a reasonable period of time as outlined above. Dictated By: STACEY RGAYSON/ARLENE Conf#: [id number] DID#: [id number]
--- NOTE | 2016-10-04 18:13 | CONS ---
Date/Time of Note Date/Time of Note DATE: 10/04/16 TIME: 18:12 Assessment/Plan Assessment/Plan Chief Complaint/Hosp Course s/p naomi s/p sepsis s/p atn plan genia mendoza will sign off Problems: Consultation Date/Type/Reason Admit Date/Time Oct 03, 2016 at 22:15 Initial Consult Date Type of Consultation: renal 24 HR Interval Summary Constitutional: improved Exam/Review of Systems Vital Signs Vitals Vital Signs Date Time Temp Pulse Resp B/P Pulse Ox O2 Delivery O2 Flow Rate FiO2 10/04/16 08:00 98.1 72 21 130/60 93 Room Air 10/04/16 03:25 21 Intake and Output 10/03/16 10/03/16 10/04/16 15:00 23:00 07:00 Intake Total 940 ml Output Total 350 ml Balance 590 ml Exam Respiratory: clear to auscultation Cardiovascular: regular rate and rhythm Results Result Diagram: 10/04/16 0656 10/04/16 0652 Results 24 hrs Laboratory Tests Test 10/04/16 00:25 10/04/16 06:52 10/04/16 06:56 10/04/16 07:51 Urine Bacteria MODERATE Urine Bilirubin NEGATIVE Urine Clarity CLEAR Urine Color LT. YELLOW Urine Glucose NEGATIVE Urine Hemoglobin NEGATIVE Urine Ketones NEGATIVE Urine Leukocyte Esterase 1+ H Urine Microscopic RBC 0-2 Urine Microscopic WBC 5-10 Urine Nitrite NEGATIVE Urine Specific Stark 1.010 Urine Squamous Epithelial Cells MODERATE Urine Total Protein NEGATIVE Urine Urobilinogen 0.2 E.U./dL Urine Yeast FEW Urine pH 7.5 Alanine Aminotransferase (ALT/SGPT) 23 Albumin 3.1 L Albumin/Globulin Ratio 0.86 Alkaline Phosphatase 96 Anion Gap 12 Aspartate Amino Transf (AST/SGOT) 28 Blood Urea Nitrogen 13 Calcium Level 8.5 Carbon Dioxide Level 31 Chloride Level 100 Creatinine 0.92 Direct Bilirubin 0.00 Globulin 3.60 H Glucose Level 77 Indirect Bilirubin 0.3 Potassium Level 3.8 Sodium Level 139 Total Bilirubin 0.3 Total Protein 6.7 Basophils # 0.1 Basophils % 1.0 Eosinophils # 0.3 Eosinophils % 3.3 Hematocrit 36.6 L Hemoglobin 11.6 L Lymphocytes # 2.5 Lymphocytes % 32.0 Mean Corpuscular Hemoglobin 28.6 L Mean Corpuscular Hemoglobin Concent 31.7 L Mean Corpuscular Volume 90.4 Mean Platelet Volume 11.8 H Monocytes # 0.9 Monocytes % 11.6 H Neutrophils # 4.1 Neutrophils % 51.8 Nucleated Red Blood Cells # 0.0 Nucleated Red Blood Cells % 0.0 Platelet Count 312 Red Blood Count 4.05 L Red Cell Distribution Width 15.8 H White Blood Count 7.9 Bedside Glucose 96 Test 10/04/16 12:20 10/04/16 17:14 Bedside Glucose 95 100 Medications Medications Current Medications Senna (Senokot) 1 tab HS PO ; Start 10/04/16 at 21:00 Bisacodyl (Dulcolax Supp) 10 mg DAILY PRN [place] CONSTIPATION; Start 10/04/16 at 00 :30 Lactulose (Enulose) 20 gm DAILY PRN PO CONSTIPATION; Start 10/04/16 at 00:30 Lorazepam (Ativan) 1 mg Q2H PRN IV AGITATION; Start 10/04/16 at 00:30 Metoprolol Tartrate (Lopressor) 50 mg BID PO Last administered on 10/04/16 08: 42; Admin Dose 50 MG; Start 10/04/16 at 09:00 Morphine Sulfate (morphine) 2 mg Q4H PRN IV PAIN; Start 10/04/16 at 00:30 Nitroglycerin (Nitroglycerin (Sl Tab) 0.4 Mg) 1 tab Q5M PRN SL CHEST PAIN; Start 10/04/16 at 00:30 Ondansetron HCl (Zofran Inj) 4 mg Q6H PRN IV NAUSEA AND/OR VOMITING Last administered on 10/04/16 09:32; Admin Dose 4 MG; Start 10/04/16 at 00:30 Hydralazine HCl (Apresoline) 10 mg Q4H PRN IV ELEVATED SYSTOLIC BP; Start 10/04 at 00:30 Insulin Glargine (Lantus) 10 unit DAILY@08 SC Last administered on 10/04/16 08 :44; Admin Dose 10 UNIT; Start 10/04/16 at 08:00 Diagnostic Test (Pha) (Accucheck) 1 ea 02 XX ; Start 10/05/16 at 02:00 Hydralazine HCl (Apresoline) 100 mg Q8 PO Last administered on 10/04/16 14:34 ; Admin Dose 100 MG; Start 10/04/16 at 06:00 Miscellaneous Information 1 ea NOTE XX ; Start 10/04/16 at 00:30 Glucose (Glutose) 15 gm Q15M PRN PO DECREASED GLUCOSE; Start 10/04/16 at 00:30 Glucose (Glutose) 22.5 gm Q15M PRN PO DECREASED GLUCOSE; Start 10/04/16 at 00: 30 Dextrose (D50w Syringe) 25 ml Q15M PRN IV DECREASED GLUCOSE; Start 10/04/16 at 00:30 Dextrose (D50w Syringe) 50 ml Q15M PRN IV DECREASED GLUCOSE; Start 10/04/16 at 00:30 Glucagon (Glucagen) 1 mg Q15M PRN IM DECREASED GLUCOSE; Start 10/04/16 at 00:30 Glucose (Glutose) 15 gm Q15M PRN BUCCAL DECREASED GLUCOSE; Start 10/04/16 at 00 :30 Famotidine (Pepcid) 20 mg DAILY PO Last administered on 10/04/16 08:41; Admin Dose 20 MG; Start 10/04/16 at 09:00 Heparin Sodium (Porcine) (Heparin (5000 Units/0.5 ml)) 5,000 unit BID SC Last administered on 10/04/16 08:43; Admin Dose 5,000 UNIT; Start 10/04/16 at 09:00 Acetaminophen (Tylenol Liquid) 650 mg Q6H PRN PO PAIN AND OR ELEVATED TEMP; Start 10/04/16 at 00:30 Amlodipine Besylate (Norvasc) 5 mg BID PO Last administered on 10/04/16 08:42 ; Admin Dose 5 MG; Start 10/04/16 at 09:00 Aspirin (Aspirin) 81 mg DAILY PO Last administered on 10/04/16 08:41; Admin Dose 81 MG; Start 10/04/16 at 09:00 Benazepril HCl (Lotensin) 10 mg BID PO Last administered on 10/04/16 08:42; Admin Dose 10 MG; Start 10/04/16 at 09:00 Docusate Sodium (Colace) 100 mg BID PO ; Start 10/04/16 at 10:30 QUITA SCHOFIELD MD Oct 04, 2016 18:13
--- NOTE | 2016-10-04 18:51 | CONS ---
DATE OF ADMISSION: 10/03/2016 DATE OF CONSULTATION: 10/04/2016 REASON FOR CONSULTATION: Positive troponin, cardiomyopathy. REQUESTING PHYSICIAN: Dr. Williamson from hospitalist service. HISTORY OF PRESENT ILLNESS: Ms. Brown is a 75-year-old female with history of diabetes mellitus, chronic pain syndrome who initially presented with generalized weakness, fever, chills and mild flan k pain. The patient initially on laboratory analysis found to have a positive troponin and had deve loped hypotension and therefore cardiology consult was requested to further evaluate the patient's significant positive troponin. The patient underwent a 2D echo revealing a mildly depressed EF of 4 5% to 50%. The patient is noted to have significant thrombocytopenia. The patient's hospital cours e once admitted, was notable for bacteremia treated with broad spectrum antibiotics, respiratory evon lure, improved, status post extubation and renal failure. At this time, the patient has made a sign ificant recovery and has been extubated, improved volume status. She is receiving ongoing antibioti c therapy for her bacteremia and had improvement in systolic blood pressures and improvement in ence phalopathy. Thus, the patient has now been transferred to rehabilitation department for ongoing iveth abilitation. PAST MEDICAL HISTORY: As above in HPI. MEDICATIONS CURRENTLY IN HOSPITAL: 1. Senna. 2. Xopenex. 3. Colace. 4. Lopressor 50 mg p.o. b.i.d. 5. Pepcid 20 mg daily. 6. Norvasc 5 mg p.o. b.i.d. 7. Aspirin 81 mg daily. 8. Benazepril 10 mg p.o. b.i.d. 9. Lantus. 10. Hydralazine 10 mg p.o. q.8. 11. Xopenex. 12. Dulcolax. 13. Morphine p.r.n. 14. Cephalexin p.r.n. 15. Hydralazine p.r.n. ALLERGIES: NO KNOWN DRUG ALLERGIES. SOCIAL HISTORY: No tobacco, ETOH or illicit drug use. FAMILY HISTORY: No history of sudden cardiac or early CAD. REVIEW OF SYSTEMS: As above in HPI. CONSTITUTIONAL: No fevers, chills. PULMONARY: No current shortness of breath. CARDIOVASCULAR: Cardiomyopathy. GASTROINTESTINAL: No vomiting. GENITOURINARY: No hematuria. MUSCULOSKELETAL: Degenerative joint disease. PSYCHIATRIC: No documented psych history. NEUROLOGIC: Encephalopathy, improving. PHYSICAL EXAMINATION: VITAL SIGNS: Temperature 98.2, blood pressure 130/60, pulse 72, respiratory rate 21, saturating 93% on room air. GENERAL: The patient is alert, awake, in no acute distress. NECK: JVP approximately 8 cm water. CHEST: Fair movement throughout, mild decreased breath sounds at bases bilaterally. HEART: Regular rate and rhythm. Normal S1, S2, I/ systolic murmur. ABDOMEN: Positive bowel sounds, soft. EXTREMITIES: No pitting edema, 1+ pulses bilaterally posterior tibial. LABORATORY DATA: As above in HPI with most recent from today, white cells 7.9, hemoglobin 11.6, janna telet count 312. Sodium 139, potassium 3.8, creatinine 0.92, BUN 13, AST 28, ALT 23. UA positive. IMAGING STUDIES: As above in HPI. No further imaging studies for my review at this time. ECG: No new ECG is for my review at this time. IMPRESSION: 1. Congestive heart failure, systolic and diastolic, acute on chronic. Last EF of 45% to 60% with improved volume status. 2. Hypertension with well controlled blood pressure. 3. Positive troponin trending negative at outside hospital. No chest pain. 4. Thrombocytopenia improved. 5. Renal failure. 6. Bacteremia, status post antibiotics course with ongoing antibiotics. 7. Urinary tract infection. RECOMMENDATIONS: 1. At this time, would maintain the patient on her current aspirin for treatment of positive tropon ins and supervision of further cardiovascular events. 2. Continue the patient's current beta [place] and aspirin and Norvasc for control of blood pressur e and heart rate as well as hydralazine. 3. Continue the patient's bronchodilators following respiratory status closely. 4. Continue to follow the patient's mental status closely. 5. Continue patient's insulin and follow blood sugars closely. 6. Physical therapy and occupational therapy. Thank you for allowing me to take part in the care of this patient. I will continue to follow very closely with you with further recommendations to be made as the patient progresses through her [facility] clinical course. Dictated By: ALLISON ALVA/ARLENE Conf#: [id number] DID#: [id number] CC: MARIO WILLIAMSON MD;*EndCC*
[2016-10-04 20:28] VITALS: BP 136/65; RESP 18
[2016-10-04] MEDS: SENNA TAB PO SCH (21:40)
--- NOTE | 2016-10-04 22:50 | CONS ---
Date/Time of Note Date/Time of Note DATE: 10/04/16 TIME: 22:50 Assessment/Plan Assessment/Plan Chief Complaint/Hosp Course thrombocytopenia in pt with severe sepsis, exposed to multiple meds with pos thrombocytopenic effect, including VANCO, ZOSYN, HEPARIN,CEFAZOLIN- RESOLVED NO EVIDENCE OF DIC cont to monitor blood count closely HIPA- NEG PLATELET COUNT NORMALIZED Leukocytosis. REACTIVE MONITOR IMPROVING Anemia. C/W ACD MONITOR BLOOD COUNT CLOSELY TRANSFUSE NEEDED Severe Sepsis with septic shock 2/2 Ecoli UTI /Bacteremia Acute renal failure - 2/2 to ATN from sepsis Type II DM - Hyperglycemic on D5W Metabolic / Lactic acidosis 2/2 #1 Acute resp failure now ventilator dependent NSTEMI versus demand ischemia Positive troponin, assess significance, assess for true acute coronary syndrome. Metabolic acidosis respiratory failure, vent dependent incomplete database Problems: Consultation Date/Type/Reason Admit Date/Time Oct 03, 2016 at 22:15 Date of Consultation: Oct 04, 2016 Type of Consultation: HEMEONC Reason for Consultation ANEMIA LEUKOCYTOSIS THROMBOCYTOPENIA Referring Provider: PEDRO SALINAS MD, [facility] Hx of Present Illness The patient is a pleasant 75-year-old female with a history of multiple medical comorbidities, who was admitted with increasing weakness, decreased urinary output and noted to have septic shock. The patient's hospital course was also notable for respiratory failure requiring intubation, acute renal failure, metabolic acidosis, dysphagia and anemia. The patient eventually self-extubated , and had gradual improvement in medical status. The patient has now been cleared to transfer to the rehabilitation unit for comprehensive interdisciplinary rehab care. FUNCTIONAL HISTORY: Prior to recent events, she was independent in self-care tasks and mobility. Currently, she requires maximal assist for self-care and mobility tasks. I have reviewed the preadmission screen and the patient's current functional status is consistent with the preadmission screen. SOCIAL HISTORY: The patient lives at home with family and hopes to return there upon discharge. PAST MEDICAL HISTORY: 1. Diabetes mellitus type 2. 2. Chronic kidney disease. 3. Hypertension. 4. Ventral hernia. 5. Chronic low back pain. CURRENT MEDICATIONS: 1. Norvasc 5 mg p.o. b.i.d. 2. Aspirin 81 mg p.o. daily. 3. Lotensin 10 mg p.o. b.i.d. 4. Insulin sliding scale. 5. Pepcid 20 mg p.o. daily. 6. Heparin 5000 units subcutaneous b.i.d. 7. Apresoline 100 mg p.o. q.8h. 8. Lantus 10 units subcutaneous daily. 9. Levalbuterol inhaler. 10. Ativan p.r.n. 11. Lopressor 50 mg p.o. b.i.d. ALLERGIES: THE PATIENT WITH NO KNOWN DRUG ALLERGIES. Constitutional: improved Past Surgical History Past Surgical Hx: no surgical history Social History Smoking Status: Former smoker Exam/Review of Systems Vital Signs Vitals Vital Signs Date Time Temp Pulse Resp B/P Pulse Ox O2 Delivery O2 Flow Rate FiO2 10/04/16 20:28 97.8 76 18 136/65 94 10/04/16 08:00 Room Air 10/04/16 03:25 21 Intake and Output 10/03/16 10/03/16 10/04/16 15:00 23:00 07:00 Intake Total 940 ml Output Total 350 ml Balance 590 ml Exam General: WN/WD/NAD, AOx 2-3 (Bengali) HEENT: Unicetric/atraumatic/EOMI (follow commands) NECK: JVD elevated, no thyromegaly Lymph: no lymphadenopathy HEART: regular with no S3, II/ systolic murmur at apex LUNGS: Coarse sounds ABD: soft, NT, ND, +BS : Intact Neuro: non focal SKIN: chronic changes EXT: trace edema Results Result Diagram: 10/04/16 0656 10/04/16 0652 Results 24 hrs Laboratory Tests Test 10/04/16 00:25 10/04/16 06:52 10/04/16 06:56 10/04/16 07:51 Urine Bacteria MODERATE Urine Bilirubin NEGATIVE Urine Clarity CLEAR Urine Color LT. YELLOW Urine Glucose NEGATIVE Urine Hemoglobin NEGATIVE Urine Ketones NEGATIVE Urine Leukocyte Esterase 1+ H Urine Microscopic RBC 0-2 Urine Microscopic WBC 5-10 Urine Nitrite NEGATIVE Urine Specific [place] 1.010 Urine Squamous Epithelial Cells MODERATE Urine Total Protein NEGATIVE Urine Urobilinogen 0.2 E.U./dL Urine Yeast FEW Urine pH 7.5 Alanine Aminotransferase (ALT/SGPT) 23 Albumin 3.1 L Albumin/Globulin Ratio 0.86 Alkaline Phosphatase 96 Anion Gap 12 Aspartate Amino Transf (AST/SGOT) 28 Blood Urea Nitrogen 13 Calcium Level 8.5 Carbon Dioxide Level 31 Chloride Level 100 Creatinine 0.92 Direct Bilirubin 0.00 Globulin 3.60 H Glucose Level 77 Indirect Bilirubin 0.3 Potassium Level 3.8 Sodium Level 139 Total Bilirubin 0.3 Total Protein 6.7 Basophils # 0.1 Basophils % 1.0 Eosinophils # 0.3 Eosinophils % 3.3 Hematocrit 36.6 L Hemoglobin 11.6 L Lymphocytes # 2.5 Lymphocytes % 32.0 Mean Corpuscular Hemoglobin 28.6 L Mean Corpuscular Hemoglobin Concent 31.7 L Mean Corpuscular Volume 90.4 Mean Platelet Volume 11.8 H Monocytes # 0.9 Monocytes % 11.6 H Neutrophils # 4.1 Neutrophils % 51.8 Nucleated Red Blood Cells # 0.0 Nucleated Red Blood Cells % 0.0 Platelet Count 312 Red Blood Count 4.05 L Red Cell Distribution Width 15.8 H White Blood Count 7.9 Bedside Glucose 96 Test 10/04/16 12:20 10/04/16 17:14 10/04/16 21:38 Bedside Glucose 95 100 101 Medications Medications Current Medications Senna (Senokot) 1 tab HS PO Last administered on 10/04/16 21:40; Admin Dose 1 TAB; Start 10/04/16 at 21:00 Bisacodyl (Dulcolax Supp) 10 mg DAILY PRN [place] CONSTIPATION; Start 10/04/16 at 00 :30 Lactulose (Enulose) 20 gm DAILY PRN PO CONSTIPATION; Start 10/04/16 at 00:30 Lorazepam (Ativan) 1 mg Q2H PRN IV AGITATION; Start 10/04/16 at 00:30 Metoprolol Tartrate (Lopressor) 50 mg BID PO Last administered on 10/04/16 21: 41; Admin Dose 50 MG; Start 10/04/16 at 09:00 Morphine Sulfate (morphine) 2 mg Q4H PRN IV PAIN; Start 10/04/16 at 00:30 Nitroglycerin (Nitroglycerin (Sl Tab) 0.4 Mg) 1 tab Q5M PRN SL CHEST PAIN; Start 10/04/16 at 00:30 Ondansetron HCl (Zofran Inj) 4 mg Q6H PRN IV NAUSEA AND/OR VOMITING Last administered on 10/04/16 09:32; Admin Dose 4 MG; Start 10/04/16 at 00:30 Hydralazine HCl (Apresoline) 10 mg Q4H PRN IV ELEVATED SYSTOLIC BP; Start 10/04 at 00:30 Insulin Glargine (Lantus) 10 unit DAILY@08 SC Last administered on 10/04/16 08 :44; Admin Dose 10 UNIT; Start 10/04/16 at 08:00 Diagnostic Test (Pha) (Accucheck) 1 ea 02 XX ; Start 10/05/16 at 02:00 Hydralazine HCl (Apresoline) 100 mg Q8 PO Last administered on 10/04/16 21:41 ; Admin Dose 100 MG; Start 10/04/16 at 06:00 Miscellaneous Information 1 ea NOTE XX ; Start 10/04/16 at 00:30 Glucose (Glutose) 15 gm Q15M PRN PO DECREASED GLUCOSE; Start 10/04/16 at 00:30 Glucose (Glutose) 22.5 gm Q15M PRN PO DECREASED GLUCOSE; Start 10/04/16 at 00: 30 Dextrose (D50w Syringe) 25 ml Q15M PRN IV DECREASED GLUCOSE; Start 10/04/16 at 00:30 Dextrose (D50w Syringe) 50 ml Q15M PRN IV DECREASED GLUCOSE; Start 10/04/16 at 00:30 Glucagon (Glucagen) 1 mg Q15M PRN IM DECREASED GLUCOSE; Start 10/04/16 at 00:30 Glucose (Glutose) 15 gm Q15M PRN BUCCAL DECREASED GLUCOSE; Start 10/04/16 at 00 :30 Famotidine (Pepcid) 20 mg DAILY PO Last administered on 10/04/16 08:41; Admin Dose 20 MG; Start 10/04/16 at 09:00 Heparin Sodium (Porcine) (Heparin (5000 Units/0.5 ml)) 5,000 unit BID SC Last administered on 10/04/16 21:57; Admin Dose 5,000 UNIT; Start 10/04/16 at 09:00 Acetaminophen (Tylenol Liquid) 650 mg Q6H PRN PO PAIN AND OR ELEVATED TEMP; Start 10/04/16 at 00:30 Amlodipine Besylate (Norvasc) 5 mg BID PO Last administered on 10/04/16 21:40 ; Admin Dose 5 MG; Start 10/04/16 at 09:00 Aspirin (Aspirin) 81 mg DAILY PO Last administered on 10/04/16 08:41; Admin Dose 81 MG; Start 10/04/16 at 09:00 Benazepril HCl (Lotensin) 10 mg BID PO Last administered on 10/04/16 21:41; Admin Dose 10 MG; Start 10/04/16 at 09:00 Docusate Sodium (Colace) 100 mg BID PO Last administered on 10/04/16 21:40; Admin Dose 100 MG; Start 10/04/16 at 10:30 JEFF FRANK MD Oct 04, 2016 22:50
[2016-10-05] MEDS: LEVALBUTEROL (HFA) 15 GM INHALER INH SCH ×6 (01:00→21:30)
[2016-10-05] MEDS: ACCUCHECK AT 2AM (Patients on SS coverage) XX SCH (02:00)
[2016-10-05] MEDS: Insulin NOVOLOG SS MODERATE Algorithm (SS with meals and bedtime) SC SCH ×4 (07:35→21:00)
[2016-10-05 08:00] VITALS: BP 147/62; PULSE 74; RESP 18
[2016-10-05] MEDS: FAMOTIDINE 20 MG TAB PO SCH (08:18)
[2016-10-05] MEDS: ASPIRIN 81 MG TAB PO SCH (08:18)
[2016-10-05] MEDS: DOCUSATE SODIUM 100 MG CAP PO SCH ×2 (08:19→21:30)
[2016-10-05] MEDS: METOPROLOL 50 MG TAB PO SCH ×2 (08:19→21:31)
[2016-10-05] MEDS: AMLODIPINE 5 MG TAB PO SCH ×2 (08:19→21:31)
[2016-10-05] MEDS: BENAZEPRIL 10 MG TAB PO SCH ×2 (08:19→21:31)
[2016-10-05] MEDS: HEPARIN 5,000 UNIT/0.5 ML SYG SC SCH ×2 (08:21→21:42)
[2016-10-05] MEDS: INSULIN GLARGINE [LANtus] 3 ML PEN SC SCH (08:21)
--- NOTE | 2016-10-05 08:26 | CONS ---
Date/Time of Note Date/Time of Note DATE: 10/05/16 TIME: 08:25 Consult Date/Type/Reason Admit Date/Time Oct 03, 2016 at 22:15 Initial Consult Date Type of Consultation: renal Subjective Pt comfortable Objective pulm-cta min assist transfer Vital Signs Date Time Temp Pulse Resp B/P Pulse Ox O2 Delivery O2 Flow Rate FiO2 10/04/16 20:28 97.8 76 18 136/65 94 10/04/16 08:00 Room Air 10/04/16 03:25 21 Intake and Output 10/04/16 10/04/16 10/05/16 15:00 23:00 07:00 Intake Total 300 ml 350 ml Balance 300 ml 350 ml Results/Medications Result Diagram: 10/04/16 0656 10/04/16 0652 Results 24 hrs Laboratory Tests Test 10/04/16 12:20 10/04/16 17:14 10/04/16 21:38 10/05/16 07:42 Bedside Glucose 95 100 101 90 Medications Current Medications Senna (Senokot) 1 tab HS PO Last administered on 10/04/16 21:40; Admin Dose 1 TAB; Start 10/04/16 at 21:00 Bisacodyl (Dulcolax Supp) 10 mg DAILY PRN [place] CONSTIPATION; Start 10/04/16 at 00 :30 Lactulose (Enulose) 20 gm DAILY PRN PO CONSTIPATION; Start 10/04/16 at 00:30 Lorazepam (Ativan) 1 mg Q2H PRN IV AGITATION; Start 10/04/16 at 00:30 Metoprolol Tartrate (Lopressor) 50 mg BID PO Last administered on 10/05/16 08: 19; Admin Dose 50 MG; Start 10/04/16 at 09:00 Morphine Sulfate (morphine) 2 mg Q4H PRN IV PAIN; Start 10/04/16 at 00:30 Nitroglycerin (Nitroglycerin (Sl Tab) 0.4 Mg) 1 tab Q5M PRN SL CHEST PAIN; Start 10/04/16 at 00:30 Ondansetron HCl (Zofran Inj) 4 mg Q6H PRN IV NAUSEA AND/OR VOMITING Last administered on 10/04/16 09:32; Admin Dose 4 MG; Start 10/04/16 at 00:30 Hydralazine HCl (Apresoline) 10 mg Q4H PRN IV ELEVATED SYSTOLIC BP; Start 10/04 at 00:30 Insulin Glargine (Lantus) 10 unit DAILY@08 SC Last administered on 10/05/16 08 :21; Admin Dose 10 UNIT; Start 10/04/16 at 08:00 Diagnostic Test (Pha) (Accucheck) 1 ea 02 XX ; Start 10/05/16 at 02:00 Hydralazine HCl (Apresoline) 100 mg Q8 PO Last administered on 10/05/16 06:51 ; Admin Dose 100 MG; Start 10/04/16 at 06:00 Miscellaneous Information 1 ea NOTE XX ; Start 10/04/16 at 00:30 Glucose (Glutose) 15 gm Q15M PRN PO DECREASED GLUCOSE; Start 10/04/16 at 00:30 Glucose (Glutose) 22.5 gm Q15M PRN PO DECREASED GLUCOSE; Start 10/04/16 at 00: 30 Dextrose (D50w Syringe) 25 ml Q15M PRN IV DECREASED GLUCOSE; Start 10/04/16 at 00:30 Dextrose (D50w Syringe) 50 ml Q15M PRN IV DECREASED GLUCOSE; Start 10/04/16 at 00:30 Glucagon (Glucagen) 1 mg Q15M PRN IM DECREASED GLUCOSE; Start 10/04/16 at 00:30 Glucose (Glutose) 15 gm Q15M PRN BUCCAL DECREASED GLUCOSE; Start 10/04/16 at 00 :30 Famotidine (Pepcid) 20 mg DAILY PO Last administered on 10/05/16 08:18; Admin Dose 20 MG; Start 10/04/16 at 09:00 Heparin Sodium (Porcine) (Heparin (5000 Units/0.5 ml)) 5,000 unit BID SC Last administered on 10/05/16 08:21; Admin Dose 5,000 UNIT; Start 10/04/16 at 09:00 Acetaminophen (Tylenol Liquid) 650 mg Q6H PRN PO PAIN AND OR ELEVATED TEMP; Start 10/04/16 at 00:30 Amlodipine Besylate (Norvasc) 5 mg BID PO Last administered on 10/04/16 21:40 ; Admin Dose 5 MG; Start 10/04/16 at 09:00 Aspirin (Aspirin) 81 mg DAILY PO Last administered on 10/05/16 08:18; Admin Dose 81 MG; Start 10/04/16 at 09:00 Benazepril HCl (Lotensin) 10 mg BID PO Last administered on 10/04/16 21:41; Admin Dose 10 MG; Start 10/04/16 at 09:00 Docusate Sodium (Colace) 100 mg BID PO Last administered on 10/04/16 21:40; Admin Dose 100 MG; Start 10/04/16 at 10:30 Assessment/Plan Additional Assessment/Plan Rehab- Toxic metabolic encephalopathy. progressing with rehab therapy. Needs encouragement pulm- stable Status post sepsis and septic shock. Acute on chronic kidney disease. Diabetes mellitus type 2. Anemia. Ventral hernia. Hypertension. Dysphagia- improving. STACEY GRAF MD Oct 05, 2016 08:25
[2016-10-05 08:27] VITALS: BP 127/69; PULSE 78; RESP 18
[2016-10-05 08:31] LABS: CHOL/HDL RATIO 3.3 RATIO
[2016-10-05 10:40] VITALS: BP 127/63; PULSE 58; RESP 18
[2016-10-05 13:22] VITALS: BP 130/60; PULSE 62; RESP 18
--- NOTE | 2016-10-05 13:35 | PN ---
DATE: 10/05/2016 PULMONARY FOLLOWUP NOTE SUBJECTIVE: The patient is stable this morning. No nausea or vomiting reported by staff. PHYSICAL EXAMINATION: VITAL SIGNS: Temperature 98, pulse is 58, blood pressure 127/63, O2 saturation 96% on room air. NECK: Supple. No JVD or lymphadenopathy. CARDIAC EXAM: S1, S2. No added sounds or murmurs. CHEST: Diminished air entry bilaterally. ABDOMEN: Soft, nontender. No guarding or rebound. EXTREMITIES: No cyanosis, clubbing or edema. NEUROLOGIC: Generalized weakness, but no focal deficits. LABORATORY: White count 7.9, hemoglobin 9.6, platelets within normal limits. Chemistry was within normal limits also. IMPRESSION AND PLAN: 1. Recent Escherichia coli sepsis. 2. History of respiratory failure. 3. Dysphagia. 4. Cardiomyopathy, with positive troponin. PLAN: 1. Continue pulmonary toilet. 2. Continue supplemental O2. 3. Continue cardiac recommendations for cardiomyopathy. 4. Continue physical therapy. 5. DVT and GI prophylaxis. Dictated By: PEDRO YORK/ARLENE Conf#: [id number] DID#: [id number]
--- NOTE | 2016-10-05 15:17 | CONS ---
Date/Time of Note Date/Time of Note DATE: 10/05/16 TIME: 15:16 Assessment/Plan Assessment/Plan Additional Assessment/Plan 1. Congestive heart failure, systolic and diastolic, acute on chronic. Last EF of 45% to 60% with improved volume status.- BETTER NOW. 2. Hypertension with well controlled blood pressure- stable, con't med rx 3. Positive troponin trending negative at outside hospital. No chest pain.- no intervention planned 4. Thrombocytopenia improved. 5. Renal failure- stable 6. Bacteremia, status post antibiotics course with ongoing antibiotics - on therpy as needed 7. Urinary tract infection. Consultation Date/Type/Reason Admit Date/Time Oct 03, 2016 at 22:15 Initial Consult Date Type of Consultation: renal 24 HR Interval Summary Free Text/Dictation No acute events - compliant with rehab - family at bedside - happy with care. ROS: No fever, no chills, no nausea, no vomiting, no diarrhea/constipation No recent weight changes No chest pain, no PND, no orthopnea No dizziness, blurred vision No thirst, no heat or cold intolerance Exam/Review of Systems Vital Signs Vitals Vital Signs Date Time Temp Pulse Resp B/P Pulse Ox O2 Delivery O2 Flow Rate FiO2 10/05/16 13:22 62 18 130/60 95 Room Air 10/05/16 08:00 98.6 10/04/16 03:25 21 Intake and Output 10/04/16 10/04/16 10/05/16 15:00 23:00 07:00 Intake Total 300 ml 350 ml Balance 300 ml 350 ml Exam General: WN/WD/NAD, AOx 2-3 ([place]ux[place]bourgish) HEENT: Unicetric/atraumatic/EOMI (follow commands) NECK: JVD elevated, no thyromegaly Lymph: no lymphadenopathy HEART: regular with no S3, II/ systolic murmur at apex LUNGS: Coarse sounds ABD: soft, NT, ND, +BS : Intact Neuro: non focal SKIN: chronic changes EXT: trace edema Results Result Diagram: 10/04/16 0656 10/04/16 0652 Results 24 hrs Laboratory Tests Test 10/04/16 17:14 10/04/16 21:38 10/05/16 06:14 10/05/16 07:42 Bedside Glucose 100 101 90 Cholesterol Level 129 Cholesterol/HDL Ratio 3.3 HDL Cholesterol 38 LDL Cholesterol, Calculated 58 Triglycerides Level 164 H Test 10/05/16 11:32 Bedside Glucose 106 Medications Medications Current Medications Senna (Senokot) 1 tab HS PO Last administered on 10/04/16 21:40; Admin Dose 1 TAB; Start 10/04/16 at 21:00 Bisacodyl (Dulcolax Supp) 10 mg DAILY PRN [place] CONSTIPATION; Start 10/04/16 at 00 :30 Lactulose (Enulose) 20 gm DAILY PRN PO CONSTIPATION; Start 10/04/16 at 00:30 Lorazepam (Ativan) 1 mg Q2H PRN IV AGITATION; Start 10/04/16 at 00:30 Metoprolol Tartrate (Lopressor) 50 mg BID PO Last administered on 10/05/16 08: 19; Admin Dose 50 MG; Start 10/04/16 at 09:00 Morphine Sulfate (morphine) 2 mg Q4H PRN IV PAIN; Start 10/04/16 at 00:30 Nitroglycerin (Nitroglycerin (Sl Tab) 0.4 Mg) 1 tab Q5M PRN SL CHEST PAIN; Start 10/04/16 at 00:30 Ondansetron HCl (Zofran Inj) 4 mg Q6H PRN IV NAUSEA AND/OR VOMITING Last administered on 10/04/16 09:32; Admin Dose 4 MG; Start 10/04/16 at 00:30 Hydralazine HCl (Apresoline) 10 mg Q4H PRN IV ELEVATED SYSTOLIC BP; Start 10/04 at 00:30 Insulin Glargine (Lantus) 10 unit DAILY@08 SC Last administered on 10/05/16 08 :21; Admin Dose 10 UNIT; Start 10/04/16 at 08:00 Diagnostic Test (Pha) (Accucheck) 1 ea 02 XX ; Start 10/05/16 at 02:00 Hydralazine HCl (Apresoline) 100 mg Q8 PO Last administered on 10/05/16 13:20 ; Admin Dose 100 MG; Start 10/04/16 at 06:00 Miscellaneous Information 1 ea NOTE XX ; Start 10/04/16 at 00:30 Glucose (Glutose) 15 gm Q15M PRN PO DECREASED GLUCOSE; Start 10/04/16 at 00:30 Glucose (Glutose) 22.5 gm Q15M PRN PO DECREASED GLUCOSE; Start 10/04/16 at 00: 30 Dextrose (D50w Syringe) 25 ml Q15M PRN IV DECREASED GLUCOSE; Start 10/04/16 at 00:30 Dextrose (D50w Syringe) 50 ml Q15M PRN IV DECREASED GLUCOSE; Start 10/04/16 at 00:30 Glucagon (Glucagen) 1 mg Q15M PRN IM DECREASED GLUCOSE; Start 10/04/16 at 00:30 Glucose (Glutose) 15 gm Q15M PRN BUCCAL DECREASED GLUCOSE; Start 10/04/16 at 00 :30 Famotidine (Pepcid) 20 mg DAILY PO Last administered on 10/05/16 08:18; Admin Dose 20 MG; Start 10/04/16 at 09:00 Heparin Sodium (Porcine) (Heparin (5000 Units/0.5 ml)) 5,000 unit BID SC Last administered on 10/05/16 08:21; Admin Dose 5,000 UNIT; Start 10/04/16 at 09:00 Acetaminophen (Tylenol Liquid) 650 mg Q6H PRN PO PAIN AND OR ELEVATED TEMP; Start 10/04/16 at 00:30 Amlodipine Besylate (Norvasc) 5 mg BID PO Last administered on 10/04/16 21:40 ; Admin Dose 5 MG; Start 10/04/16 at 09:00 Aspirin (Aspirin) 81 mg DAILY PO Last administered on 10/05/16 08:18; Admin Dose 81 MG; Start 10/04/16 at 09:00 Benazepril HCl (Lotensin) 10 mg BID PO Last administered on 10/04/16 21:41; Admin Dose 10 MG; Start 10/04/16 at 09:00 Docusate Sodium (Colace) 100 mg BID PO Last administered on 10/04/16 21:40; Admin Dose 100 MG; Start 10/04/16 at 10:30 CHERI PATTEN MD Oct 05, 2016 15:17
[2016-10-05 21:12] VITALS: BP 157/70; RESP 18
--- NOTE | 2016-10-05 21:29 | CONS ---
Date/Time of Note Date/Time of Note DATE: 10/05/16 TIME: 21:27 Assessment/Plan Assessment/Plan Chief Complaint/Hosp Course thrombocytopenia in pt with severe sepsis, exposed to multiple meds with pos thrombocytopenic effect, including VANCO, ZOSYN, HEPARIN,CEFAZOLIN- RESOLVED NO EVIDENCE OF DIC cont to monitor blood count closely HIPA- NEG PLATELET COUNT NORMALIZED Leukocytosis. REACTIVE MONITOR IMPROVED Anemia. C/W ACD MONITOR BLOOD COUNT CLOSELY TRANSFUSE NEEDED Severe Sepsis with septic shock 2/2 Ecoli UTI /Bacteremia Acute renal failure - 2/2 to ATN from sepsis Type II DM - Hyperglycemic on D5W Metabolic / Lactic acidosis 2/2 #1 Acute resp failure now ventilator dependent NSTEMI versus demand ischemia Positive troponin, assess significance, assess for true acute coronary syndrome. Metabolic acidosis respiratory failure, vent dependent incomplete database Problems: Consultation Date/Type/Reason Admit Date/Time Oct 03, 2016 at 22:15 Initial Consult Date Type of Consultation: hemeonc Reason for Consultation anemia Referring Provider: [facility] SALINAS MD, [facility] HR Interval Summary Free Text/Dictation The patient is stable No nausea or vomiting count stable no bleeding Exam/Review of Systems Vital Signs Vitals Vital Signs Date Time Temp Pulse Resp B/P Pulse Ox O2 Delivery O2 Flow Rate FiO2 10/05/16 13:22 62 18 130/60 95 Room Air 10/05/16 08:00 98.6 10/04/16 03:25 21 Intake and Output 10/04/16 10/04/16 10/05/16 15:00 23:00 07:00 Intake Total 300 ml 350 ml Balance 300 ml 350 ml Exam PHYSICAL EXAMINATION: NECK: Supple. No JVD or lymphadenopathy. CARDIAC EXAM: S1, S2. No added sounds or murmurs. CHEST: Diminished air entry bilaterally. ABDOMEN: Soft, nontender. No guarding or rebound. EXTREMITIES: No cyanosis, clubbing or edema. NEUROLOGIC: Generalized weakness, but no focal deficits. Results Result Diagram: 10/04/16 0656 10/04/16 0652 Results 24 hrs Laboratory Tests Test 10/04/16 21:38 10/05/16 06:14 10/05/16 07:42 10/05/16 11:32 Bedside Glucose 101 90 106 Cholesterol Level 129 Cholesterol/HDL Ratio 3.3 HDL Cholesterol 38 LDL Cholesterol, Calculated 58 Triglycerides Level 164 H Test 10/05/16 16:54 10/05/16 20:17 Bedside Glucose 87 118 Medications Medications Current Medications Senna (Senokot) 1 tab HS PO Last administered on 10/04/16 21:40; Admin Dose 1 TAB; Start 10/04/16 at 21:00 Bisacodyl (Dulcolax Supp) 10 mg DAILY PRN [place] CONSTIPATION; Start 10/04/16 at 00 :30 Lactulose (Enulose) 20 gm DAILY PRN PO CONSTIPATION; Start 10/04/16 at 00:30 Lorazepam (Ativan) 1 mg Q2H PRN IV AGITATION; Start 10/04/16 at 00:30 Metoprolol Tartrate (Lopressor) 50 mg BID PO Last administered on 10/05/16 08: 19; Admin Dose 50 MG; Start 10/04/16 at 09:00 Morphine Sulfate (morphine) 2 mg Q4H PRN IV PAIN; Start 10/04/16 at 00:30 Nitroglycerin (Nitroglycerin (Sl Tab) 0.4 Mg) 1 tab Q5M PRN SL CHEST PAIN; Start 10/04/16 at 00:30 Ondansetron HCl (Zofran Inj) 4 mg Q6H PRN IV NAUSEA AND/OR VOMITING Last administered on 10/04/16 09:32; Admin Dose 4 MG; Start 10/04/16 at 00:30 Hydralazine HCl (Apresoline) 10 mg Q4H PRN IV ELEVATED SYSTOLIC BP; Start 10/04 at 00:30 Insulin Glargine (Lantus) 10 unit DAILY@08 SC Last administered on 10/05/16 08 :21; Admin Dose 10 UNIT; Start 10/04/16 at 08:00 Diagnostic Test (Pha) (Accucheck) 1 ea 02 XX ; Start 10/05/16 at 02:00 Hydralazine HCl (Apresoline) 100 mg Q8 PO Last administered on 10/05/16 13:20 ; Admin Dose 100 MG; Start 10/04/16 at 06:00 Miscellaneous Information 1 ea NOTE XX ; Start 10/04/16 at 00:30 Glucose (Glutose) 15 gm Q15M PRN PO DECREASED GLUCOSE; Start 10/04/16 at 00:30 Glucose (Glutose) 22.5 gm Q15M PRN PO DECREASED GLUCOSE; Start 10/04/16 at 00: 30 Dextrose (D50w Syringe) 25 ml Q15M PRN IV DECREASED GLUCOSE; Start 10/04/16 at 00:30 Dextrose (D50w Syringe) 50 ml Q15M PRN IV DECREASED GLUCOSE; Start 10/04/16 at 00:30 Glucagon (Glucagen) 1 mg Q15M PRN IM DECREASED GLUCOSE; Start 10/04/16 at 00:30 Glucose (Glutose) 15 gm Q15M PRN BUCCAL DECREASED GLUCOSE; Start 10/04/16 at 00 :30 Famotidine (Pepcid) 20 mg DAILY PO Last administered on 10/05/16 08:18; Admin Dose 20 MG; Start 10/04/16 at 09:00 Heparin Sodium (Porcine) (Heparin (5000 Units/0.5 ml)) 5,000 unit BID SC Last administered on 10/05/16 08:21; Admin Dose 5,000 UNIT; Start 10/04/16 at 09:00 Acetaminophen (Tylenol Liquid) 650 mg Q6H PRN PO PAIN AND OR ELEVATED TEMP; Start 10/04/16 at 00:30 Amlodipine Besylate (Norvasc) 5 mg BID PO Last administered on 10/04/16 21:40 ; Admin Dose 5 MG; Start 10/04/16 at 09:00 Aspirin (Aspirin) 81 mg DAILY PO Last administered on 10/05/16 08:18; Admin Dose 81 MG; Start 10/04/16 at 09:00 Benazepril HCl (Lotensin) 10 mg BID PO Last administered on 10/04/16 21:41; Admin Dose 10 MG; Start 10/04/16 at 09:00 Docusate Sodium (Colace) 100 mg BID PO Last administered on 10/04/16 21:40; Admin Dose 100 MG; Start 10/04/16 at 10:30 JEFF FRANK MD Oct 05, 2016 21:29
[2016-10-05] MEDS: SENNA TAB PO SCH (21:30)
[2016-10-06] MEDS: ACETAMINOPHEN 650MG/20.3ML CUP PO PRN ×2 (01:07→09:17)
[2016-10-06] MEDS: LEVALBUTEROL (HFA) 15 GM INHALER INH SCH ×6 (01:07→21:21)
[2016-10-06] MEDS: ACCUCHECK AT 2AM (Patients on SS coverage) XX SCH (02:00)
[2016-10-06] MEDS: Insulin NOVOLOG SS MODERATE Algorithm (SS with meals and bedtime) SC SCH ×4 (07:35→21:00)
[2016-10-06 08:17] VITALS: BP 135/64; PULSE 73; RESP 20
[2016-10-06] MEDS: FAMOTIDINE 20 MG TAB PO SCH (08:57)
[2016-10-06] MEDS: AMLODIPINE 5 MG TAB PO SCH ×2 (08:57→21:26)
[2016-10-06] MEDS: ASPIRIN 81 MG TAB PO SCH (08:57)
[2016-10-06] MEDS: BENAZEPRIL 10 MG TAB PO SCH ×2 (08:57→21:26)
[2016-10-06] MEDS: DOCUSATE SODIUM 100 MG CAP PO SCH ×2 (08:57→21:21)
[2016-10-06] MEDS: METOPROLOL 50 MG TAB PO SCH ×2 (08:58→21:25)
[2016-10-06] MEDS: INSULIN GLARGINE [LANtus] 3 ML PEN SC SCH (09:06)
[2016-10-06] MEDS: HEPARIN 5,000 UNIT/0.5 ML SYG SC SCH ×2 (09:07→21:33)
--- NOTE | 2016-10-06 09:29 | CONS ---
Date/Time of Note Date/Time of Note DATE: 10/06/16 TIME: 09:28 Assessment/Plan Assessment/Plan Chief Complaint/Hosp Course thrombocytopenia in pt with severe sepsis, exposed to multiple meds with pos thrombocytopenic effect, including VANCO, ZOSYN, HEPARIN,CEFAZOLIN- RESOLVED NO EVIDENCE OF DIC cont to monitor blood count closely HIPA- NEG PLATELET COUNT NORMALIZED Leukocytosis. REACTIVE MONITOR IMPROVING Anemia. C/W ACD MONITOR BLOOD COUNT CLOSELY TRANSFUSE NEEDED Severe Sepsis with septic shock 2/2 Ecoli UTI /Bacteremia Acute renal failure - 2/2 to ATN from sepsis Type II DM - Hyperglycemic on D5W Metabolic / Lactic acidosis 2/2 #1 Acute resp failure now ventilator dependent NSTEMI versus demand ischemia Positive troponin, assess significance, assess for true acute coronary syndrome. Metabolic acidosis respiratory failure, vent dependent incomplete database Problems: Consultation Date/Type/Reason Admit Date/Time Oct 03, 2016 at 22:15 [facility] Referring Provider: PEDRO SALINAS MD, [facility] 24 HR Interval Summary Free Text/Dictation ALL NOTED NO NEW EVENTS COUNT REVIEWED Exam/Review of Systems Vital Signs Vitals Vital Signs Date Time Temp Pulse Resp B/P Pulse Ox O2 Delivery O2 Flow Rate FiO2 10/06/16 08:17 98.5 73 20 135/64 94 Room Air 10/04/16 03:25 21 Intake and Output 10/05/16 10/05/16 10/06/16 15:00 23:00 07:00 Intake Total 950 ml 500 ml Output Total 650 ml 880 ml Balance -650 ml 70 ml 500 ml Exam General: WN/WD/NAD, AOx 3 [place] HEENT: Unicetric/atraumatic/EOMI (follow commands) NECK: JVD elevated, no thyromegaly Lymph: no lymphadenopathy HEART: regular with no S3, II/ systolic murmur at apex LUNGS: Coarse sounds ABD: soft, NT, ND, +BS : Intact Neuro: non focal SKIN: chronic changes EXT: trace edema Results Result Diagram: 10/04/16 0656 10/04/16 0652 Results 24 hrs Laboratory Tests Test 10/05/16 11:32 10/05/16 16:54 10/05/16 20:17 10/06/16 07:43 Bedside Glucose 106 87 118 107 Medications Medications Current Medications Senna (Senokot) 1 tab HS PO Last administered on 10/05/16 21:30; Admin Dose 1 TAB; Start 10/04/16 at 21:00 Bisacodyl (Dulcolax Supp) 10 mg DAILY PRN [place] CONSTIPATION; Start 10/04/16 at 00 :30 Lactulose (Enulose) 20 gm DAILY PRN PO CONSTIPATION; Start 10/04/16 at 00:30 Lorazepam (Ativan) 1 mg Q2H PRN IV AGITATION; Start 10/04/16 at 00:30 Metoprolol Tartrate (Lopressor) 50 mg BID PO Last administered on 10/06/16 08: 58; Admin Dose 50 MG; Start 10/04/16 at 09:00 Morphine Sulfate (morphine) 2 mg Q4H PRN IV PAIN; Start 10/04/16 at 00:30 Nitroglycerin (Nitroglycerin (Sl Tab) 0.4 Mg) 1 tab Q5M PRN SL CHEST PAIN; Start 10/04/16 at 00:30 Ondansetron HCl (Zofran Inj) 4 mg Q6H PRN IV NAUSEA AND/OR VOMITING Last administered on 10/04/16 09:32; Admin Dose 4 MG; Start 10/04/16 at 00:30 Hydralazine HCl (Apresoline) 10 mg Q4H PRN IV ELEVATED SYSTOLIC BP; Start 10/04 at 00:30 Insulin Glargine (Lantus) 10 unit DAILY@08 SC Last administered on 10/06/16 09 :06; Admin Dose 10 UNIT; Start 10/04/16 at 08:00 Diagnostic Test (Pha) (Accucheck) 1 ea 02 XX ; Start 10/05/16 at 02:00 Hydralazine HCl (Apresoline) 100 mg Q8 PO Last administered on 10/06/16 06:04 ; Admin Dose 100 MG; Start 10/04/16 at 06:00 Miscellaneous Information 1 ea NOTE XX ; Start 10/04/16 at 00:30 Glucose (Glutose) 15 gm Q15M PRN PO DECREASED GLUCOSE; Start 10/04/16 at 00:30 Glucose (Glutose) 22.5 gm Q15M PRN PO DECREASED GLUCOSE; Start 10/04/16 at 00: 30 Dextrose (D50w Syringe) 25 ml Q15M PRN IV DECREASED GLUCOSE; Start 10/04/16 at 00:30 Dextrose (D50w Syringe) 50 ml Q15M PRN IV DECREASED GLUCOSE; Start 10/04/16 at 00:30 Glucagon (Glucagen) 1 mg Q15M PRN IM DECREASED GLUCOSE; Start 10/04/16 at 00:30 Glucose (Glutose) 15 gm Q15M PRN BUCCAL DECREASED GLUCOSE; Start 10/04/16 at 00 :30 Famotidine (Pepcid) 20 mg DAILY PO Last administered on 10/06/16 08:57; Admin Dose 20 MG; Start 10/04/16 at 09:00 Heparin Sodium (Porcine) (Heparin (5000 Units/0.5 ml)) 5,000 unit BID SC Last administered on 10/06/16 09:07; Admin Dose 5,000 UNIT; Start 10/04/16 at 09:00 Acetaminophen (Tylenol Liquid) 650 mg Q6H PRN PO PAIN AND OR ELEVATED TEMP Last administered on 10/06/16 09:17; Admin Dose 650 MG; Start 10/04/16 at 00:30 Amlodipine Besylate (Norvasc) 5 mg BID PO Last administered on 10/06/16 08:57 ; Admin Dose 5 MG; Start 10/04/16 at 09:00 Aspirin (Aspirin) 81 mg DAILY PO Last administered on 10/06/16 08:57; Admin Dose 81 MG; Start 10/04/16 at 09:00 Benazepril HCl (Lotensin) 10 mg BID PO Last administered on 10/06/16 08:57; Admin Dose 10 MG; Start 10/04/16 at 09:00 Docusate Sodium (Colace) 100 mg BID PO Last administered on 10/06/16 08:57; Admin Dose 100 MG; Start 10/04/16 at 10:30 JEFF FRANK MD Oct 06, 2016 09:28
--- NOTE | 2016-10-06 19:03 | CONS ---
Date/Time of Note Date/Time of Note DATE: 10/06/16 TIME: 19:02 Assessment/Plan Assessment/Plan Additional Assessment/Plan 1. Congestive heart failure, systolic and diastolic, acute on chronic. Last EF of 45% to 60% with improved volume status.- BETTER NOW. 2. Hypertension with well controlled blood pressure- stable, con't med rx - WELL RX 3. Positive troponin trending negative at outside hospital. No chest pain.- no intervention planned 4. Thrombocytopenia improved- BETTER 5. Renal failure- stable 6. Bacteremia, status post antibiotics course with ongoing antibiotics - on therpy as needed 7. Urinary tract infection. Consultation Date/Type/Reason Admit Date/Time Oct 03, 2016 at 22:15 [facility] Referring Provider: PEDRO SALINAS MD, [facility] 24 HR Interval Summary Free Text/Dictation NO acute change - pt stable - compliant with rehab. ROS: No fever, no chills, no nausea, no vomiting, no diarrhea/constipation No recent weight changes No chest pain, no PND, no orthopnea No dizziness, blurred vision No thirst, no heat or cold intolerance Exam/Review of Systems Vital Signs Vitals Vital Signs Date Time Temp Pulse Resp B/P Pulse Ox O2 Delivery O2 Flow Rate FiO2 10/06/16 08:17 98.5 73 20 135/64 94 Room Air 10/04/16 03:25 21 Intake and Output 10/05/16 10/05/16 10/06/16 15:00 23:00 07:00 Intake Total 950 ml 500 ml Output Total 650 ml 880 ml Balance -650 ml 70 ml 500 ml Exam General: WN/WD/NAD, AOx 3 [place] HEENT: Unicetric/atraumatic/EOMI (follow commands) NECK: JVD elevated, no thyromegaly Lymph: no lymphadenopathy HEART: regular with no S3, II/ systolic murmur at apex LUNGS: Coarse sounds ABD: soft, NT, ND, +BS : Intact Neuro: non focal SKIN: chronic changes EXT: trace edema Results Result Diagram: 10/04/16 0656 10/04/16 0652 Results 24 hrs Laboratory Tests Test 10/05/16 20:17 10/06/16 07:43 10/06/16 12:15 10/06/16 17:32 Bedside Glucose 118 107 92 94 Medications Medications Current Medications Senna (Senokot) 1 tab HS PO Last administered on 10/05/16 21:30; Admin Dose 1 TAB; Start 10/04/16 at 21:00 Bisacodyl (Dulcolax Supp) 10 mg DAILY PRN [place] CONSTIPATION; Start 10/04/16 at 00 :30 Lactulose (Enulose) 20 gm DAILY PRN PO CONSTIPATION; Start 10/04/16 at 00:30 Lorazepam (Ativan) 1 mg Q2H PRN IV AGITATION; Start 10/04/16 at 00:30 Metoprolol Tartrate (Lopressor) 50 mg BID PO Last administered on 10/06/16 08: 58; Admin Dose 50 MG; Start 10/04/16 at 09:00 Morphine Sulfate (morphine) 2 mg Q4H PRN IV PAIN; Start 10/04/16 at 00:30 Nitroglycerin (Nitroglycerin (Sl Tab) 0.4 Mg) 1 tab Q5M PRN SL CHEST PAIN; Start 10/04/16 at 00:30 Ondansetron HCl (Zofran Inj) 4 mg Q6H PRN IV NAUSEA AND/OR VOMITING Last administered on 10/04/16 09:32; Admin Dose 4 MG; Start 10/04/16 at 00:30 Hydralazine HCl (Apresoline) 10 mg Q4H PRN IV ELEVATED SYSTOLIC BP; Start 10/04 at 00:30 Insulin Glargine (Lantus) 10 unit DAILY@08 SC Last administered on 10/06/16 09 :06; Admin Dose 10 UNIT; Start 10/04/16 at 08:00 Diagnostic Test (Pha) (Accucheck) 1 ea 02 XX ; Start 10/05/16 at 02:00 Hydralazine HCl (Apresoline) 100 mg Q8 PO Last administered on 10/06/16 13:33 ; Admin Dose 100 MG; Start 10/04/16 at 06:00 Miscellaneous Information 1 ea NOTE XX ; Start 10/04/16 at 00:30 Glucose (Glutose) 15 gm Q15M PRN PO DECREASED GLUCOSE; Start 10/04/16 at 00:30 Glucose (Glutose) 22.5 gm Q15M PRN PO DECREASED GLUCOSE; Start 10/04/16 at 00: 30 Dextrose (D50w Syringe) 25 ml Q15M PRN IV DECREASED GLUCOSE; Start 10/04/16 at 00:30 Dextrose (D50w Syringe) 50 ml Q15M PRN IV DECREASED GLUCOSE; Start 10/04/16 at 00:30 Glucagon (Glucagen) 1 mg Q15M PRN IM DECREASED GLUCOSE; Start 10/04/16 at 00:30 Glucose (Glutose) 15 gm Q15M PRN BUCCAL DECREASED GLUCOSE; Start 10/04/16 at 00 :30 Famotidine (Pepcid) 20 mg DAILY PO Last administered on 10/06/16 08:57; Admin Dose 20 MG; Start 10/04/16 at 09:00 Heparin Sodium (Porcine) (Heparin (5000 Units/0.5 ml)) 5,000 unit BID SC Last administered on 10/06/16 09:07; Admin Dose 5,000 UNIT; Start 10/04/16 at 09:00 Acetaminophen (Tylenol Liquid) 650 mg Q6H PRN PO PAIN AND OR ELEVATED TEMP Last administered on 10/06/16 09:17; Admin Dose 650 MG; Start 10/04/16 at 00:30 Amlodipine Besylate (Norvasc) 5 mg BID PO Last administered on 10/06/16 08:57 ; Admin Dose 5 MG; Start 10/04/16 at 09:00 Aspirin (Aspirin) 81 mg DAILY PO Last administered on 10/06/16 08:57; Admin Dose 81 MG; Start 10/04/16 at 09:00 Benazepril HCl (Lotensin) 10 mg BID PO Last administered on 10/06/16 08:57; Admin Dose 10 MG; Start 10/04/16 at 09:00 Docusate Sodium (Colace) 100 mg BID PO Last administered on 10/06/16 08:57; Admin Dose 100 MG; Start 10/04/16 at 10:30 CHERI PATTEN MD Oct 06, 2016 19:03
[2016-10-06 19:46] VITALS: BP 149/70; RESP 18
[2016-10-06] MEDS: SENNA TAB PO SCH (21:21)
[2016-10-06 21:38] VITALS: BP 140/63; PULSE 74
[2016-10-07] MEDS: LEVALBUTEROL (HFA) 15 GM INHALER INH SCH ×6 (01:49→21:43)
[2016-10-07] MEDS: ACCUCHECK AT 2AM (Patients on SS coverage) XX SCH (02:00)
[2016-10-07 05:53] VITALS: BP 135/62; PULSE 66
[2016-10-07] MEDS: Insulin NOVOLOG SS MODERATE Algorithm (SS with meals and bedtime) SC SCH ×4 (07:23→21:00)
[2016-10-07 07:30] VITALS: BP 114/68; RESP 18
[2016-10-07] MEDS: ASPIRIN 81 MG TAB PO SCH (08:20)
[2016-10-07] MEDS: FAMOTIDINE 20 MG TAB PO SCH (08:20)
[2016-10-07] MEDS: METOPROLOL 50 MG TAB PO SCH ×2 (08:20→21:44)
[2016-10-07] MEDS: DOCUSATE SODIUM 100 MG CAP PO SCH ×2 (08:20→21:43)
[2016-10-07] MEDS: AMLODIPINE 5 MG TAB PO SCH ×2 (08:21→21:44)
[2016-10-07] MEDS: BENAZEPRIL 10 MG TAB PO SCH ×2 (08:21→21:44)
[2016-10-07] MEDS: INSULIN GLARGINE [LANtus] 3 ML PEN SC SCH (08:24)
[2016-10-07] MEDS: HEPARIN 5,000 UNIT/0.5 ML SYG SC SCH ×2 (08:25→21:45)
[2016-10-07 08:30] VITALS: BP 133/70; PULSE 78; RESP 18
--- NOTE | 2016-10-07 12:04 | CONS ---
Date/Time of Note Date/Time of Note DATE: 10/07/16 TIME: 12:03 Consult Date/Type/Reason Admit Date/Time Oct 03, 2016 at 22:15 Type of Consultation: [facility] Ordering Provider: PEDRO SALINAS MD, [facility] Objective Vital Signs Date Time Temp Pulse Resp B/P Pulse Ox O2 Delivery O2 Flow Rate FiO2 10/07/16 08:30 98.0 78 18 133/70 97 Room Air 10/04/16 03:25 21 Intake and Output 10/06/16 10/06/16 10/07/16 14:59 22:59 06:59 Intake Total 480 ml 1440 ml 800 ml Output Total 350 ml Balance 130 ml 1440 ml 800 ml INTERDISCIPLINARY TEAM CONFERENCE BOWEL- Cont BLADDER-Cont/incont SKIN- intact OT- DRESSING-min/mod BATHING-min/mod TOILETING-min/mod PT- BED MOBILITY-min/mod TRANSFERS-min/mod AMBULATION-min/mod 40 feet SPEECH- COGNITION-min DYPHAGIA-mech soft A/P- Interdisciplinary team conference held today. Please see interdisciplinary sheet. Working toward d.c. on 10/10 with post discharge follow up of physical therapy, occupational therapy. Results/Medications Result Diagram: 10/04/16 0656 10/04/16 0652 Results 24 hrs Laboratory Tests Test 10/06/16 12:15 10/06/16 17:32 10/06/16 20:48 10/07/16 02:20 Bedside Glucose 92 94 73 63 L Test 10/07/16 02:46 10/07/16 03:11 10/07/16 07:20 10/07/16 11:46 Bedside Glucose 102 116 108 107 Medications Current Medications Senna (Senokot) 1 tab HS PO Last administered on 10/06/16 21:21; Admin Dose 1 TAB; Start 10/04/16 at 21:00 Bisacodyl (Dulcolax Supp) 10 mg DAILY PRN [place] CONSTIPATION Last administered on 10/06/16 21:30; Admin Dose 10 MG; Start 10/04/16 at 00:30 Lactulose (Enulose) 20 gm DAILY PRN PO CONSTIPATION; Start 10/04/16 at 00:30 Lorazepam (Ativan) 1 mg Q2H PRN IV AGITATION; Start 10/04/16 at 00:30 Metoprolol Tartrate (Lopressor) 50 mg BID PO Last administered on 10/07/16 08: 20; Admin Dose 50 MG; Start 10/04/16 at 09:00 Morphine Sulfate (morphine) 2 mg Q4H PRN IV PAIN; Start 10/04/16 at 00:30 Nitroglycerin (Nitroglycerin (Sl Tab) 0.4 Mg) 1 tab Q5M PRN SL CHEST PAIN; Start 10/04/16 at 00:30 Ondansetron HCl (Zofran Inj) 4 mg Q6H PRN IV NAUSEA AND/OR VOMITING Last administered on 10/04/16 09:32; Admin Dose 4 MG; Start 10/04/16 at 00:30 Hydralazine HCl (Apresoline) 10 mg Q4H PRN IV ELEVATED SYSTOLIC BP; Start 10/04 at 00:30 Insulin Glargine (Lantus) 10 unit DAILY@08 SC Last administered on 10/07/16 08 :24; Admin Dose 10 UNIT; Start 10/04/16 at 08:00 Diagnostic Test (Pha) (Accucheck) 1 ea 02 XX ; Start 10/05/16 at 02:00 Hydralazine HCl (Apresoline) 100 mg Q8 PO Last administered on 10/07/16 05:49 ; Admin Dose 100 MG; Start 10/04/16 at 06:00 Miscellaneous Information 1 ea NOTE XX ; Start 10/04/16 at 00:30 Glucose (Glutose) 15 gm Q15M PRN PO DECREASED GLUCOSE; Start 10/04/16 at 00:30 Glucose (Glutose) 22.5 gm Q15M PRN PO DECREASED GLUCOSE; Start 10/04/16 at 00: 30 Dextrose (D50w Syringe) 25 ml Q15M PRN IV DECREASED GLUCOSE; Start 10/04/16 at 00:30 Dextrose (D50w Syringe) 50 ml Q15M PRN IV DECREASED GLUCOSE; Start 10/04/16 at 00:30 Glucagon (Glucagen) 1 mg Q15M PRN IM DECREASED GLUCOSE; Start 10/04/16 at 00:30 Glucose (Glutose) 15 gm Q15M PRN BUCCAL DECREASED GLUCOSE; Start 10/04/16 at 00 :30 Famotidine (Pepcid) 20 mg DAILY PO Last administered on 10/07/16 08:20; Admin Dose 20 MG; Start 10/04/16 at 09:00 Heparin Sodium (Porcine) (Heparin (5000 Units/0.5 ml)) 5,000 unit BID SC Last administered on 10/07/16 08:25; Admin Dose 5,000 UNIT; Start 10/04/16 at 09:00 Acetaminophen (Tylenol Liquid) 650 mg Q6H PRN PO PAIN AND OR ELEVATED TEMP Last administered on 10/06/16 09:17; Admin Dose 650 MG; Start 10/04/16 at 00:30 Amlodipine Besylate (Norvasc) 5 mg BID PO Last administered on 10/07/16 08:21 ; Admin Dose 5 MG; Start 10/04/16 at 09:00 Aspirin (Aspirin) 81 mg DAILY PO Last administered on 10/07/16 08:20; Admin Dose 81 MG; Start 10/04/16 at 09:00 Benazepril HCl (Lotensin) 10 mg BID PO Last administered on 10/07/16 08:21; Admin Dose 10 MG; Start 10/04/16 at 09:00 Docusate Sodium (Colace) 100 mg BID PO Last administered on 10/07/16 08:20; Admin Dose 100 MG; Start 10/04/16 at 10:30 STACEY GRAF MD Oct 07, 2016 12:04
[2016-10-07 13:53] VITALS: BP 138/61; PULSE 68; RESP 18
--- NOTE | 2016-10-07 16:51 | CONS ---
Date/Time of Note Date/Time of Note DATE: 10/07/16 TIME: 16:47 Assessment/Plan Assessment/Plan Chief Complaint/Hosp Course IMPRESSION: 1. Congestive heart failure, systolic and diastolic, acute on chronic. Last EF of 45% to 60% with improved volume status. 2. Hypertension with well controlled blood pressure. 3. Positive troponin trending negative at outside hospital. No chest pain. 4. Thrombocytopenia improved. 5. Renal failure. 6. Bacteremia, status post antibiotics 7. Urinary tract infection. Recc: -Continue BB/benazepril/norvasc -Continue asa/SQ heparin -Follow volume status closely -PT/OT Problems: Consultation Date/Type/Reason Admit Date/Time Oct 03, 2016 at 22:15 Initial Consult Date 10/04/16 Type of Consultation: Cardiology Reason for Consultation HTN/positive troponin Referring Provider: PEDRO SALINAS MD, [facility] Exam/Review of Systems Vital Signs Vitals Vital Signs Date Time Temp Pulse Resp B/P Pulse Ox O2 Delivery O2 Flow Rate FiO2 10/07/16 13:53 68 18 138/61 96 Room Air 10/07/16 08:30 98.0 10/04/16 03:25 21 Intake and Output 10/06/16 10/06/16 10/07/16 15:00 23:00 07:00 Intake Total 480 ml 1440 ml 800 ml Output Total 350 ml Balance 130 ml 1440 ml 800 ml Exam Review of Systems: CONSTITUTIONAL: No fevers, chills. PULMONARY: No sob CARDIOVASCULAR: No chest pain/palpitations GASTROINTESTINAL: No nausea/vomiting. GENITOURINARY: No hematuria/dysuria. MUSCULOSKELETAL: No myagias/arthalgias. PSYCHIATRIC: The patient denies depression. NEUROLOGIC: No weakness Constitutional: other (sleeping, easily arouasable) Head: normocephalic ENMT: mucosa pink and moist Neck: jvd (8 cm water), supple Respiratory: diminished breath sounds (at bases/B) Cardiovascular: regular rate and rhythm Gastrointestinal: non-tender, soft Musculoskeletal: muscle tone (normal) Extremities: edema (none) Neurological: other (No focal deficits) Results Result Diagram: 10/04/16 0656 10/04/16 0652 Results 24 hrs Laboratory Tests Test 10/06/16 17:32 10/06/16 20:48 10/07/16 02:20 10/07/16 02:46 Bedside Glucose 94 73 63 L 102 Test 10/07/16 03:11 10/07/16 07:20 10/07/16 11:46 Bedside Glucose 116 108 107 Medications Medications Current Medications Senna (Senokot) 1 tab HS PO Last administered on 10/06/16 21:21; Admin Dose 1 TAB; Start 10/04/16 at 21:00 Bisacodyl (Dulcolax Supp) 10 mg DAILY PRN [place] CONSTIPATION Last administered on 10/06/16 21:30; Admin Dose 10 MG; Start 10/04/16 at 00:30 Lactulose (Enulose) 20 gm DAILY PRN PO CONSTIPATION; Start 10/04/16 at 00:30 Lorazepam (Ativan) 1 mg Q2H PRN IV AGITATION; Start 10/04/16 at 00:30 Metoprolol Tartrate (Lopressor) 50 mg BID PO Last administered on 10/07/16 08: 20; Admin Dose 50 MG; Start 10/04/16 at 09:00 Morphine Sulfate (morphine) 2 mg Q4H PRN IV PAIN; Start 10/04/16 at 00:30 Nitroglycerin (Nitroglycerin (Sl Tab) 0.4 Mg) 1 tab Q5M PRN SL CHEST PAIN; Start 10/04/16 at 00:30 Ondansetron HCl (Zofran Inj) 4 mg Q6H PRN IV NAUSEA AND/OR VOMITING Last administered on 10/04/16 09:32; Admin Dose 4 MG; Start 10/04/16 at 00:30 Hydralazine HCl (Apresoline) 10 mg Q4H PRN IV ELEVATED SYSTOLIC BP; Start 10/04 at 00:30 Diagnostic Test (Pha) (Accucheck) 1 ea 02 XX ; Start 10/05/16 at 02:00 Hydralazine HCl (Apresoline) 100 mg Q8 PO Last administered on 10/07/16 13:52 ; Admin Dose 100 MG; Start 10/04/16 at 06:00 Miscellaneous Information 1 ea NOTE XX ; Start 10/04/16 at 00:30 Glucose (Glutose) 15 gm Q15M PRN PO DECREASED GLUCOSE; Start 10/04/16 at 00:30 Glucose (Glutose) 22.5 gm Q15M PRN PO DECREASED GLUCOSE; Start 10/04/16 at 00: 30 Dextrose (D50w Syringe) 25 ml Q15M PRN IV DECREASED GLUCOSE; Start 10/04/16 at 00:30 Dextrose (D50w Syringe) 50 ml Q15M PRN IV DECREASED GLUCOSE; Start 10/04/16 at 00:30 Glucagon (Glucagen) 1 mg Q15M PRN IM DECREASED GLUCOSE; Start 10/04/16 at 00:30 Glucose (Glutose) 15 gm Q15M PRN BUCCAL DECREASED GLUCOSE; Start 10/04/16 at 00 :30 Famotidine (Pepcid) 20 mg DAILY PO Last administered on 10/07/16 08:20; Admin Dose 20 MG; Start 10/04/16 at 09:00 Heparin Sodium (Porcine) (Heparin (5000 Units/0.5 ml)) 5,000 unit BID SC Last administered on 10/07/16 08:25; Admin Dose 5,000 UNIT; Start 10/04/16 at 09:00 Acetaminophen (Tylenol Liquid) 650 mg Q6H PRN PO PAIN AND OR ELEVATED TEMP Last administered on 10/06/16 09:17; Admin Dose 650 MG; Start 10/04/16 at 00:30 Amlodipine Besylate (Norvasc) 5 mg BID PO Last administered on 10/07/16 08:21 ; Admin Dose 5 MG; Start 10/04/16 at 09:00 Aspirin (Aspirin) 81 mg DAILY PO Last administered on 10/07/16 08:20; Admin Dose 81 MG; Start 10/04/16 at 09:00 Benazepril HCl (Lotensin) 10 mg BID PO Last administered on 10/07/16 08:21; Admin Dose 10 MG; Start 10/04/16 at 09:00 Docusate Sodium (Colace) 100 mg BID PO Last administered on 10/07/16 08:20; Admin Dose 100 MG; Start 10/04/16 at 10:30 Insulin Glargine (Lantus) 6 unit DAILY@08 SC ; Start 10/08/16 at 08:00 ALLISON CONTRERAS 20, 2017 16:51
--- NOTE | 2016-10-07 17:10 | CONS ---
Date/Time of Note Date/Time of Note DATE: 10/07/16 TIME: 17:08 Assessment/Plan Assessment/Plan Chief Complaint/Hosp Course thrombocytopenia in pt with severe sepsis, exposed to multiple meds with pos thrombocytopenic effect, including VANCO, ZOSYN, HEPARIN,CEFAZOLIN- RESOLVED NO EVIDENCE OF DIC cont to monitor blood count closely HIPA- NEG PLATELET COUNT NORMALIZED Leukocytosis. REACTIVE MONITOR IMPROVING Anemia. C/W ACD MONITOR BLOOD COUNT CLOSELY TRANSFUSE NEEDED Severe Sepsis with septic shock 2/2 Ecoli UTI /Bacteremia Acute renal failure - 2/2 to ATN from sepsis Type II DM - Hyperglycemic on D5W Metabolic / Lactic acidosis 2/2 #1 Acute resp failure now ventilator dependent NSTEMI versus demand ischemia Positive troponin, assess significance, assess for true acute coronary syndrome. Metabolic acidosis respiratory failure, vent dependent incomplete database Problems: Consultation Date/Type/Reason Admit Date/Time Oct 03, 2016 at 22:15 Type of Consultation: [facility] Reason for Consultation ALL NOTED NO NEW EVENTS Referring Provider: PED[facility] SALINAS MD, [facility] Exam/Review of Systems Vital Signs Vitals Vital Signs Date Time Temp Pulse Resp B/P Pulse Ox O2 Delivery O2 Flow Rate FiO2 10/07/16 13:53 68 18 138/61 96 Room Air 10/07/16 08:30 98.0 10/04/16 03:25 21 Intake and Output 10/06/16 10/06/16 10/07/16 15:00 23:00 07:00 Intake Total 480 ml 1440 ml 800 ml Output Total 350 ml Balance 130 ml 1440 ml 800 ml Exam General: WN/WD/NAD, AOx 3 [place] HEENT: Unicetric/atraumatic/EOMI (follow commands) NECK: JVD elevated, no thyromegaly Lymph: no lymphadenopathy HEART: regular with no S3, II/ systolic murmur at apex LUNGS: Coarse sounds ABD: soft, NT, ND, +BS : Intact Neuro: non focal SKIN: chronic changes EXT: trace edema Results Result Diagram: 10/04/16 0656 10/04/16 0652 Results 24 hrs Laboratory Tests Test 10/06/16 17:32 10/06/16 20:48 10/07/16 02:20 10/07/16 02:46 Bedside Glucose 94 73 63 L 102 Test 10/07/16 03:11 10/07/16 07:20 10/07/16 11:46 10/07/16 16:51 Bedside Glucose 116 108 107 174 Medications Medications Current Medications Senna (Senokot) 1 tab HS PO Last administered on 10/06/16 21:21; Admin Dose 1 TAB; Start 10/04/16 at 21:00 Bisacodyl (Dulcolax Supp) 10 mg DAILY PRN [place] CONSTIPATION Last administered on 10/06/16 21:30; Admin Dose 10 MG; Start 10/04/16 at 00:30 Lactulose (Enulose) 20 gm DAILY PRN PO CONSTIPATION; Start 10/04/16 at 00:30 Lorazepam (Ativan) 1 mg Q2H PRN IV AGITATION; Start 10/04/16 at 00:30 Metoprolol Tartrate (Lopressor) 50 mg BID PO Last administered on 10/07/16 08: 20; Admin Dose 50 MG; Start 10/04/16 at 09:00 Morphine Sulfate (morphine) 2 mg Q4H PRN IV PAIN; Start 10/04/16 at 00:30 Nitroglycerin (Nitroglycerin (Sl Tab) 0.4 Mg) 1 tab Q5M PRN SL CHEST PAIN; Start 10/04/16 at 00:30 Ondansetron HCl (Zofran Inj) 4 mg Q6H PRN IV NAUSEA AND/OR VOMITING Last administered on 10/04/16 09:32; Admin Dose 4 MG; Start 10/04/16 at 00:30 Hydralazine HCl (Apresoline) 10 mg Q4H PRN IV ELEVATED SYSTOLIC BP; Start 10/04 at 00:30 Diagnostic Test (Pha) (Accucheck) 1 ea 02 XX ; Start 10/05/16 at 02:00 Hydralazine HCl (Apresoline) 100 mg Q8 PO Last administered on 10/07/16 13:52 ; Admin Dose 100 MG; Start 10/04/16 at 06:00 Miscellaneous Information 1 ea NOTE XX ; Start 10/04/16 at 00:30 Glucose (Glutose) 15 gm Q15M PRN PO DECREASED GLUCOSE; Start 10/04/16 at 00:30 Glucose (Glutose) 22.5 gm Q15M PRN PO DECREASED GLUCOSE; Start 10/04/16 at 00: 30 Dextrose (D50w Syringe) 25 ml Q15M PRN IV DECREASED GLUCOSE; Start 10/04/16 at 00:30 Dextrose (D50w Syringe) 50 ml Q15M PRN IV DECREASED GLUCOSE; Start 10/04/16 at 00:30 Glucagon (Glucagen) 1 mg Q15M PRN IM DECREASED GLUCOSE; Start 10/04/16 at 00:30 Glucose (Glutose) 15 gm Q15M PRN BUCCAL DECREASED GLUCOSE; Start 10/04/16 at 00 :30 Famotidine (Pepcid) 20 mg DAILY PO Last administered on 10/07/16 08:20; Admin Dose 20 MG; Start 10/04/16 at 09:00 Heparin Sodium (Porcine) (Heparin (5000 Units/0.5 ml)) 5,000 unit BID SC Last administered on 10/07/16 08:25; Admin Dose 5,000 UNIT; Start 10/04/16 at 09:00 Acetaminophen (Tylenol Liquid) 650 mg Q6H PRN PO PAIN AND OR ELEVATED TEMP Last administered on 10/06/16 09:17; Admin Dose 650 MG; Start 10/04/16 at 00:30 Amlodipine Besylate (Norvasc) 5 mg BID PO Last administered on 10/07/16 08:21 ; Admin Dose 5 MG; Start 10/04/16 at 09:00 Aspirin (Aspirin) 81 mg DAILY PO Last administered on 10/07/16 08:20; Admin Dose 81 MG; Start 10/04/16 at 09:00 Benazepril HCl (Lotensin) 10 mg BID PO Last administered on 10/07/16 08:21; Admin Dose 10 MG; Start 10/04/16 at 09:00 Docusate Sodium (Colace) 100 mg BID PO Last administered on 10/07/16 08:20; Admin Dose 100 MG; Start 10/04/16 at 10:30 Insulin Glargine (Lantus) 6 unit DAILY@08 SC ; Start 10/08/16 at 08:00 JEFF FRANK MD Oct 07, 2016 17:10
[2016-10-07 20:20] VITALS: BP 154/67; RESP 19
[2016-10-07] MEDS: SENNA TAB PO SCH (21:43)
--- NOTE | 2016-10-07 23:29 | PN ---
DATE: 10/07/2016 SUBJECTIVE: Patient Larry is stable this morning. She was noted to have low blood sugar, but sh e remained asymptomatic. No new events overnight. OBJECTIVE: VITAL SIGNS: Temperature 98, pulse is 78, blood pressure 131/61, O2 saturation 91% on room air. NECK: Supple. No JVD or lymphadenopathy. CARDIAC: S1, S2. No added sounds or murmurs. CHEST: Diminished air entry bilaterally. ABDOMEN: Soft, nontender. No guarding or rebound. EXTREMITIES: No cyanosis, clubbing, edema. NEUROLOGIC: Generalized weakness. LABORATORY DATA: White count 7.6, hemoglobin 11.6, platelets 312. Chemistry is pending. IMPRESSION AND PLAN: 1. Congestive cardiac failure, improved. 2. Thrombocytopenia, stable. 3. History of Escherichia coli sepsis. 4. Deconditioning. PLAN: 1. Continue PT. 2. Continue speech therapy. 3. Continue pulmonary toilet. 4. Anticipate discharge planning soon. Dictated By: PEDRO SALINAS MD SV/ARLENE Conf#: [id number] DID#: [id number] CC: STACEY GRAF MD;*EndCC*
[2016-10-08] MEDS: LEVALBUTEROL (HFA) 15 GM INHALER INH SCH ×6 (01:09→20:40)
[2016-10-08] MEDS: ACCUCHECK AT 2AM (Patients on SS coverage) XX SCH (02:00)
[2016-10-08 07:00] VITALS: BP 153/69; RESP 18
[2016-10-08] MEDS: Insulin NOVOLOG SS MODERATE Algorithm (SS with meals and bedtime) SC SCH ×4 (07:35→20:45)
[2016-10-08] MEDS: INSULIN GLARGINE [LANtus] 3 ML PEN SC SCH (08:30)
[2016-10-08] MEDS: HEPARIN 5,000 UNIT/0.5 ML SYG SC SCH ×2 (08:31→20:52)
[2016-10-08] MEDS: ASPIRIN 81 MG TAB PO SCH (08:34)
[2016-10-08] MEDS: DOCUSATE SODIUM 100 MG CAP PO SCH ×2 (08:34→20:40)
[2016-10-08] MEDS: AMLODIPINE 5 MG TAB PO SCH ×2 (08:36→20:42)
[2016-10-08] MEDS: METOPROLOL 50 MG TAB PO SCH ×2 (08:36→20:44)
[2016-10-08] MEDS: FAMOTIDINE 20 MG TAB PO SCH (08:36)
[2016-10-08] MEDS: BENAZEPRIL 10 MG TAB PO SCH ×2 (08:36→20:45)
--- NOTE | 2016-10-08 10:00 | CONS ---
Date/Time of Note Date/Time of Note DATE: 10/08/16 TIME: 09:59 Assessment/Plan Assessment/Plan Additional Assessment/Plan 1. Congestive heart failure, systolic and diastolic, acute on chronic. Last EF of 45% to 60% with improved volume status.- BETTER NOW. 2. Hypertension with well controlled blood pressure- stable, con't med rx - WELL RX 3. Positive troponin trending negative at outside hospital. No chest pain.- no intervention planned - no CP noted 4. Thrombocytopenia improved- BETTER 5. Renal failure- stable 6. Bacteremia, status post antibiotics course with ongoing antibiotics - on therpy as needed 7. Urinary tract infection.- Rx with anti-bx Consultation Date/Type/Reason Admit Date/Time Oct 03, 2016 at 22:15 [facility] Referring Provider: PEDRO SALINAS MD, [facility] 24 HR Interval Summary Free Text/Dictation Doing well - much improved overall - compliant with rehab ROS: No fever, no chills, no nausea, no vomiting, no diarrhea/constipation No recent weight changes No chest pain, no PND, no orthopnea No dizziness, blurred vision No thirst, no heat or cold intolerance Exam/Review of Systems Vital Signs Vitals Vital Signs Date Time Temp Pulse Resp B/P Pulse Ox O2 Delivery O2 Flow Rate FiO2 10/07/16 20:20 98.8 76 19 154/67 96 10/07/16 13:53 Room Air Intake and Output 10/07/16 10/07/16 10/08/16 15:00 23:00 07:00 Intake Total 1110 ml 680 ml Output Total 740 ml Balance 370 ml 680 ml Exam General: WN/WD/NAD, AOx 2-3 Sinhala HEENT: Unicetric/atraumatic/EOMI ( follow commands) NECK: JVD elevated, no thyromegaly Lymph: no lymphadenopathy HEART: regular with no S3, II/ systolic murmur at apex LUNGS: Coarse sounds ABD: soft, NT, ND, +BS : Intact Neuro: non focal SKIN: chronic changes EXT: trace edema Results Result Diagram: 10/04/16 0656 10/04/16 0652 Results 24 hrs Laboratory Tests Test 10/07/16 11:46 10/07/16 16:51 10/07/16 20:56 10/08/16 07:53 Bedside Glucose 107 174 145 100 Medications Medications Current Medications Senna (Senokot) 1 tab HS PO Last administered on 10/07/16 21:43; Admin Dose 1 TAB; Start 10/04/16 at 21:00 Bisacodyl (Dulcolax Supp) 10 mg DAILY PRN [place] CONSTIPATION Last administered on 10/06/16 21:30; Admin Dose 10 MG; Start 10/04/16 at 00:30 Lactulose (Enulose) 20 gm DAILY PRN PO CONSTIPATION; Start 10/04/16 at 00:30 Lorazepam (Ativan) 1 mg Q2H PRN IV AGITATION; Start 10/04/16 at 00:30 Metoprolol Tartrate (Lopressor) 50 mg BID PO Last administered on 10/08/16 08: 36; Admin Dose 50 MG; Start 10/04/16 at 09:00 Morphine Sulfate (morphine) 2 mg Q4H PRN IV PAIN; Start 10/04/16 at 00:30 Nitroglycerin (Nitroglycerin (Sl Tab) 0.4 Mg) 1 tab Q5M PRN SL CHEST PAIN; Start 10/04/16 at 00:30 Ondansetron HCl (Zofran Inj) 4 mg Q6H PRN IV NAUSEA AND/OR VOMITING Last administered on 10/04/16 09:32; Admin Dose 4 MG; Start 10/04/16 at 00:30 Hydralazine HCl (Apresoline) 10 mg Q4H PRN IV ELEVATED SYSTOLIC BP; Start 10/04 at 00:30 Diagnostic Test (Pha) (Accucheck) 1 ea 02 XX ; Start 10/05/16 at 02:00 Hydralazine HCl (Apresoline) 100 mg Q8 PO Last administered on 10/08/16 06:09 ; Admin Dose 100 MG; Start 10/04/16 at 06:00 Miscellaneous Information 1 ea NOTE XX ; Start 10/04/16 at 00:30 Glucose (Glutose) 15 gm Q15M PRN PO DECREASED GLUCOSE; Start 10/04/16 at 00:30 Glucose (Glutose) 22.5 gm Q15M PRN PO DECREASED GLUCOSE; Start 10/04/16 at 00: 30 Dextrose (D50w Syringe) 25 ml Q15M PRN IV DECREASED GLUCOSE; Start 10/04/16 at 00:30 Dextrose (D50w Syringe) 50 ml Q15M PRN IV DECREASED GLUCOSE; Start 10/04/16 at 00:30 Glucagon (Glucagen) 1 mg Q15M PRN IM DECREASED GLUCOSE; Start 10/04/16 at 00:30 Glucose (Glutose) 15 gm Q15M PRN BUCCAL DECREASED GLUCOSE; Start 10/04/16 at 00 :30 Famotidine (Pepcid) 20 mg DAILY PO Last administered on 10/08/16 08:36; Admin Dose 20 MG; Start 10/04/16 at 09:00 Heparin Sodium (Porcine) (Heparin (5000 Units/0.5 ml)) 5,000 unit BID SC Last administered on 10/08/16 08:31; Admin Dose 5,000 UNIT; Start 10/04/16 at 09:00 Acetaminophen (Tylenol Liquid) 650 mg Q6H PRN PO PAIN AND OR ELEVATED TEMP Last administered on 10/06/16 09:17; Admin Dose 650 MG; Start 10/04/16 at 00:30 Amlodipine Besylate (Norvasc) 5 mg BID PO Last administered on 10/08/16 08:36 ; Admin Dose 5 MG; Start 10/04/16 at 09:00 Aspirin (Aspirin) 81 mg DAILY PO Last administered on 10/08/16 08:34; Admin Dose 81 MG; Start 10/04/16 at 09:00 Benazepril HCl (Lotensin) 10 mg BID PO Last administered on 10/08/16 08:36; Admin Dose 10 MG; Start 10/04/16 at 09:00 Docusate Sodium (Colace) 100 mg BID PO Last administered on 10/08/16 08:34; Admin Dose 100 MG; Start 10/04/16 at 10:30 Insulin Glargine (Lantus) 6 unit DAILY@08 SC Last administered on 10/08/16 08: 30; Admin Dose 6 UNIT; Start 10/08/16 at 08:00 CHERI PATTEN MD Oct 08, 2016 10:00
[2016-10-08] MEDS: ONDANSETRON 4 MG INJ IV PRN (10:13)
--- NOTE | 2016-10-08 12:25 | CONS ---
Date/Time of Note Date/Time of Note DATE: 10/08/16 TIME: 12:23 Consult Date/Type/Reason Admit Date/Time Oct 03, 2016 at 22:15 [facility] Ordering Provider: [facility]AS [facility], [facility] Subjective Doing well Objective pulm-cta abd-soft min ambulation Vital Signs Date Time Temp Pulse Resp B/P Pulse Ox O2 Delivery O2 Flow Rate FiO2 10/08/16 07:00 98.4 69 18 153/69 96 10/07/16 13:53 Room Air Intake and Output 10/07/16 10/07/16 10/08/16 15:00 23:00 07:00 Intake Total 1110 ml 680 ml Output Total 740 ml Balance 370 ml 680 ml Results/Medications Result Diagram: 10/04/16 0656 10/04/16 0652 Results 24 hrs Laboratory Tests Test 10/07/16 16:51 10/07/16 20:56 10/08/16 07:53 10/08/16 11:47 Bedside Glucose 174 145 100 189 Medications Current Medications Senna (Senokot) 1 tab HS PO Last administered on 10/07/16 21:43; Admin Dose 1 TAB; Start 10/04/16 at 21:00 Bisacodyl (Dulcolax Supp) 10 mg DAILY PRN [place] CONSTIPATION Last administered on 10/06/16 21:30; Admin Dose 10 MG; Start 10/04/16 at 00:30 Lactulose (Enulose) 20 gm DAILY PRN PO CONSTIPATION; Start 10/04/16 at 00:30 Lorazepam (Ativan) 1 mg Q2H PRN IV AGITATION; Start 10/04/16 at 00:30 Metoprolol Tartrate (Lopressor) 50 mg BID PO Last administered on 10/08/16 08: 36; Admin Dose 50 MG; Start 10/04/16 at 09:00 Morphine Sulfate (morphine) 2 mg Q4H PRN IV PAIN; Start 10/04/16 at 00:30 Nitroglycerin (Nitroglycerin (Sl Tab) 0.4 Mg) 1 tab Q5M PRN SL CHEST PAIN; Start 10/04/16 at 00:30 Ondansetron HCl (Zofran Inj) 4 mg Q6H PRN IV NAUSEA AND/OR VOMITING Last administered on 10/08/16 10:13; Admin Dose 4 MG; Start 10/04/16 at 00:30 Hydralazine HCl (Apresoline) 10 mg Q4H PRN IV ELEVATED SYSTOLIC BP; Start 10/04 at 00:30 Diagnostic Test (Pha) (Accucheck) 1 ea 02 XX ; Start 10/05/16 at 02:00 Hydralazine HCl (Apresoline) 100 mg Q8 PO Last administered on 10/08/16 06:09 ; Admin Dose 100 MG; Start 10/04/16 at 06:00 Miscellaneous Information 1 ea NOTE XX ; Start 10/04/16 at 00:30 Glucose (Glutose) 15 gm Q15M PRN PO DECREASED GLUCOSE; Start 10/04/16 at 00:30 Glucose (Glutose) 22.5 gm Q15M PRN PO DECREASED GLUCOSE; Start 10/04/16 at 00: 30 Dextrose (D50w Syringe) 25 ml Q15M PRN IV DECREASED GLUCOSE; Start 10/04/16 at 00:30 Dextrose (D50w Syringe) 50 ml Q15M PRN IV DECREASED GLUCOSE; Start 10/04/16 at 00:30 Glucagon (Glucagen) 1 mg Q15M PRN IM DECREASED GLUCOSE; Start 10/04/16 at 00:30 Glucose (Glutose) 15 gm Q15M PRN BUCCAL DECREASED GLUCOSE; Start 10/04/16 at 00 :30 Famotidine (Pepcid) 20 mg DAILY PO Last administered on 10/08/16 08:36; Admin Dose 20 MG; Start 10/04/16 at 09:00 Heparin Sodium (Porcine) (Heparin (5000 Units/0.5 ml)) 5,000 unit BID SC Last administered on 10/08/16 08:31; Admin Dose 5,000 UNIT; Start 10/04/16 at 09:00 Acetaminophen (Tylenol Liquid) 650 mg Q6H PRN PO PAIN AND OR ELEVATED TEMP Last administered on 10/06/16 09:17; Admin Dose 650 MG; Start 10/04/16 at 00:30 Amlodipine Besylate (Norvasc) 5 mg BID PO Last administered on 10/08/16 08:36 ; Admin Dose 5 MG; Start 10/04/16 at 09:00 Aspirin (Aspirin) 81 mg DAILY PO Last administered on 10/08/16 08:34; Admin Dose 81 MG; Start 10/04/16 at 09:00 Benazepril HCl (Lotensin) 10 mg BID PO Last administered on 10/08/16 08:36; Admin Dose 10 MG; Start 10/04/16 at 09:00 Docusate Sodium (Colace) 100 mg BID PO Last administered on 10/08/16 08:34; Admin Dose 100 MG; Start 10/04/16 at 10:30 Insulin Glargine (Lantus) 6 unit DAILY@08 SC Last administered on 10/08/16 08: 30; Admin Dose 6 UNIT; Start 10/08/16 at 08:00 Assessment/Plan Additional Assessment/Plan Rehab- Toxic metabolic encephalopathy. Overall steady progress. Family training in progress Status post respiratory failure requiring intubation and eventual extubation- pulm stable Status post sepsis and septic shock. Acute on chronic kidney disease. Diabetes mellitus type 2. Anemia. Ventral hernia. Hypertension. Dysphagia- improved. STACEY GRAF MD Oct 08, 2016 12:25
--- NOTE | 2016-10-08 14:56 | PN ---
DATE: 10/08/2016 SUBJECTIVE: Patient Larry is stable this morning. OBJECTIVE: VITAL SIGNS: Temperature 98, pulse 69, blood pressure 153/69, O2 saturation 96% on room air. NECK: Supple. No JVD or lymphadenopathy. CARDIAC: S1, S2, no added sounds or murmurs. CHEST: Diminished air entry bilaterally. ABDOMEN: Soft, nontender. No guarding or rebound. EXTREMITIES: No cyanosis, clubbing, edema. NEUROLOGIC: Generalized weakness. LABORATORY DATA: Stable at present. IMPRESSION AND PLAN: 1. Congestive cardiac failure, currently stable. 2. Thrombocytopenia, improved. 3. History of Escherichia coli sepsis. 4. Significant deconditioning. PLAN: 1. Continue cardiac recommendations regarding management of blood pressure. 2. Continue physical therapy. 3. Continue DVT and GI prophylaxis. Dictated By: PEDRO YORK/ARLENE Conf#: [id number] DID#: [id number]
--- NOTE | 2016-10-08 18:15 | RADRPT ---
Vent Rate: 54 bpm RR Interval: 0 msec UT Interval: 138 msec QRS Duration: 86 msec QT Interval: 450 msec QTC Interval: 426 msec P-R-T Etta: 68 - 65 - 39 degrees Sinus bradycardia Cannot rule out Anterior infarct , age undetermined Abnormal ECG Electronically Signed By: Krish Menchaca [id number]
[2016-10-08 20:04] VITALS: BP 147/67; RESP 20
[2016-10-08] MEDS: SENNA TAB PO SCH (20:41)
--- NOTE | 2016-10-08 22:23 | CONS ---
Date/Time of Note Date/Time of Note DATE: 10/08/16 TIME: 22:22 Assessment/Plan Assessment/Plan Chief Complaint/Hosp Course thrombocytopenia in pt with severe sepsis, exposed to multiple meds with pos thrombocytopenic effect, including VANCO, ZOSYN, HEPARIN,CEFAZOLIN- RESOLVED NO EVIDENCE OF DIC cont to monitor blood count closely HIPA- NEG PLATELET COUNT NORMALIZED Leukocytosis. REACTIVE MONITOR IMPROVING Anemia. C/W ACD MONITOR BLOOD COUNT CLOSELY TRANSFUSE NEEDED Severe Sepsis with septic shock 2/2 Ecoli UTI /Bacteremia Acute renal failure - 2/2 to ATN from sepsis Type II DM - Hyperglycemic on D5W Metabolic / Lactic acidosis 2/2 #1 Acute resp failure now ventilator dependent NSTEMI versus demand ischemia Positive troponin, assess significance, assess for true acute coronary syndrome. Metabolic acidosis respiratory failure, vent dependent incomplete database Problems: Consultation Date/Type/Reason Admit Date/Time Oct 03, 2016 at 22:15 [facility] Referring Provider: PEDRO SALINAS MD, [facility] 24 HR Interval Summary Free Text/Dictation stable no new events Exam/Review of Systems Vital Signs Vitals Vital Signs Date Time Temp Pulse Resp B/P Pulse Ox O2 Delivery O2 Flow Rate FiO2 10/08/16 20:04 98.8 73 20 147/67 98 10/07/16 13:53 Room Air Intake and Output 10/07/16 10/07/16 10/08/16 15:00 23:00 07:00 Intake Total 1110 ml 680 ml Output Total 740 ml Balance 370 ml 680 ml Exam NECK: Supple. No JVD or lymphadenopathy. CARDIAC: S1, S2, no added sounds or murmurs. CHEST: Diminished air entry bilaterally. ABDOMEN: Soft, nontender. No guarding or rebound. EXTREMITIES: No cyanosis, clubbing, edema. NEUROLOGIC: Generalized weakness. Results Result Diagram: 10/04/16 0656 10/04/16 0652 Results 24 hrs Laboratory Tests Test 10/08/16 07:53 10/08/16 11:47 10/08/16 17:17 10/08/16 20:36 Bedside Glucose 100 189 96 139 Medications Medications Current Medications Senna (Senokot) 1 tab HS PO Last administered on 10/08/16t 20:41; Admin Dose 1 TAB; Start 10/04/16 at 21:00 Bisacodyl (Dulcolax Supp) 10 mg DAILY PRN [place] CONSTIPATION Last administered on 10/06/16 21:30; Admin Dose 10 MG; Start 10/04/16 at 00:30 Lactulose (Enulose) 20 gm DAILY PRN PO CONSTIPATION; Start 10/04/16 at 00:30 Lorazepam (Ativan) 1 mg Q2H PRN IV AGITATION; Start 10/04/16 at 00:30 Metoprolol Tartrate (Lopressor) 50 mg BID PO Last administered on 10/08/16 20: 44; Admin Dose 50 MG; Start 10/04/16 at 09:00 Morphine Sulfate (morphine) 2 mg Q4H PRN IV PAIN; Start 10/04/16 at 00:30 Nitroglycerin (Nitroglycerin (Sl Tab) 0.4 Mg) 1 tab Q5M PRN SL CHEST PAIN; Start 10/04/16 at 00:30 Ondansetron HCl (Zofran Inj) 4 mg Q6H PRN IV NAUSEA AND/OR VOMITING Last administered on 10/08/16 10:13; Admin Dose 4 MG; Start 10/04/16 at 00:30 Hydralazine HCl (Apresoline) 10 mg Q4H PRN IV ELEVATED SYSTOLIC BP; Start 10/04 at 00:30 Diagnostic Test (Pha) (Accucheck) 1 ea 02 XX ; Start 10/05/16 at 02:00 Hydralazine HCl (Apresoline) 100 mg Q8 PO Last administered on 10/08/16 21:10 ; Admin Dose 100 MG; Start 10/04/16 at 06:00 Miscellaneous Information 1 ea NOTE XX ; Start 10/04/16 at 00:30 Glucose (Glutose) 15 gm Q15M PRN PO DECREASED GLUCOSE; Start 10/04/16 at 00:30 Glucose (Glutose) 22.5 gm Q15M PRN PO DECREASED GLUCOSE; Start 10/04/16 at 00: 30 Dextrose (D50w Syringe) 25 ml Q15M PRN IV DECREASED GLUCOSE; Start 10/04/16 at 00:30 Dextrose (D50w Syringe) 50 ml Q15M PRN IV DECREASED GLUCOSE; Start 10/04/16 at 00:30 Glucagon (Glucagen) 1 mg Q15M PRN IM DECREASED GLUCOSE; Start 10/04/16 at 00:30 Glucose (Glutose) 15 gm Q15M PRN BUCCAL DECREASED GLUCOSE; Start 10/04/16 at 00 :30 Famotidine (Pepcid) 20 mg DAILY PO Last administered on 10/08/16 08:36; Admin Dose 20 MG; Start 10/04/16 at 09:00 Heparin Sodium (Porcine) (Heparin (5000 Units/0.5 ml)) 5,000 unit BID SC Last administered on 10/08/16 20:52; Admin Dose 5,000 UNIT; Start 10/04/16 at 09:00 Acetaminophen (Tylenol Liquid) 650 mg Q6H PRN PO PAIN AND OR ELEVATED TEMP Last administered on 10/06/16 09:17; Admin Dose 650 MG; Start 10/04/16 at 00:30 Amlodipine Besylate (Norvasc) 5 mg BID PO Last administered on 10/08/16 20:42 ; Admin Dose 5 MG; Start 10/04/16 at 09:00 Aspirin (Aspirin) 81 mg DAILY PO Last administered on 10/08/16 08:34; Admin Dose 81 MG; Start 10/04/16 at 09:00 Benazepril HCl (Lotensin) 10 mg BID PO Last administered on 10/08/16 20:45; Admin Dose 10 MG; Start 10/04/16 at 09:00 Docusate Sodium (Colace) 100 mg BID PO Last administered on 10/08/16 20:40; Admin Dose 100 MG; Start 10/04/16 at 10:30 Insulin Glargine (Lantus) 6 unit DAILY@08 SC Last administered on 10/08/16 08: 30; Admin Dose 6 UNIT; Start 10/08/16 at 08:00 JEFF FRANK MD Oct 08, 2016 22:23
[2016-10-09] MEDS: LEVALBUTEROL (HFA) 15 GM INHALER INH SCH ×6 (02:09→21:32)
[2016-10-09] MEDS: ACCUCHECK AT 2AM (Patients on SS coverage) XX SCH (02:16)
[2016-10-09 07:30] VITALS: BP 142/64; RESP 18
[2016-10-09] MEDS: Insulin NOVOLOG SS MODERATE Algorithm (SS with meals and bedtime) SC SCH ×4 (07:35→21:00)
[2016-10-09] MEDS: INSULIN GLARGINE [LANtus] 3 ML PEN SC SCH (08:59)
[2016-10-09] MEDS: HEPARIN 5,000 UNIT/0.5 ML SYG SC SCH ×2 (09:01→21:10)
[2016-10-09] MEDS: DOCUSATE SODIUM 100 MG CAP PO SCH ×2 (09:01→21:00)
[2016-10-09] MEDS: FAMOTIDINE 20 MG TAB PO SCH (09:01)
[2016-10-09] MEDS: AMLODIPINE 5 MG TAB PO SCH ×2 (09:01→21:08)
[2016-10-09] MEDS: ASPIRIN 81 MG TAB PO SCH (09:01)
[2016-10-09] MEDS: BENAZEPRIL 10 MG TAB PO SCH ×2 (09:02→21:08)
[2016-10-09] MEDS: METOPROLOL 50 MG TAB PO SCH ×2 (09:02→21:07)
--- NOTE | 2016-10-09 11:49 | CONS ---
Date/Time of Note Date/Time of Note DATE: 10/09/16 TIME: 11:49 Assessment/Plan Assessment/Plan Chief Complaint/Hosp Course thrombocytopenia in pt with severe sepsis, exposed to multiple meds with pos thrombocytopenic effect, including VANCO, ZOSYN, HEPARIN,CEFAZOLIN- RESOLVED NO EVIDENCE OF DIC cont to monitor blood count closely HIPA- NEG PLATELET COUNT NORMALIZED Leukocytosis. REACTIVE MONITOR IMPROVING Anemia. C/W ACD MONITOR BLOOD COUNT CLOSELY TRANSFUSE NEEDED Severe Sepsis with septic shock 2/2 Ecoli UTI /Bacteremia Acute renal failure - 2/2 to ATN from sepsis Type II DM - Hyperglycemic on D5W Metabolic / Lactic acidosis 2/2 #1 Acute resp failure now ventilator dependent NSTEMI versus demand ischemia Positive troponin, assess significance, assess for true acute coronary syndrome. Metabolic acidosis respiratory failure, vent dependent incomplete database Problems: Consultation Date/Type/Reason Admit Date/Time Oct 03, 2016 at 22:15 [facility] Referring Provider: PEDRO SALINAS MD, [facility] 24 HR Interval Summary Free Text/Dictation NO NEW EVENTS STABLE Exam/Review of Systems Vital Signs Vitals Vital Signs Date Time Temp Pulse Resp B/P Pulse Ox O2 Delivery O2 Flow Rate FiO2 10/08/16 20:04 98.8 73 20 147/67 98 10/07/16 13:53 Room Air Intake and Output 10/08/16 10/08/16 10/09/16 15:00 23:00 07:00 Intake Total 720 ml 620 ml 200 ml Output Total 200 ml Balance 520 ml 620 ml 200 ml Exam NECK: Supple. No JVD or lymphadenopathy. CARDIAC: S1, S2, no added sounds or murmurs. CHEST: Diminished air entry bilaterally. ABDOMEN: Soft, nontender. No guarding or rebound. EXTREMITIES: No cyanosis, clubbing, edema. NEUROLOGIC: Generalized weakness. Results Results 24 hrs Laboratory Tests Test 10/08/16 17:17 10/08/16 20:36 10/09/16 07:33 Bedside Glucose 96 139 102 Medications Medications Current Medications Senna (Senokot) 1 tab HS PO Last administered on 10/08/16 20:41; Admin Dose 1 TAB; Start 10/04/16 at 21:00 Bisacodyl (Dulcolax Supp) 10 mg DAILY PRN [place]STIPATION Last administered on 10/06/16 21:30; Admin Dose 10 MG; Start 10/04/16 at 00:30 Lactulose (Enulose) 20 gm DAILY PRN PO CONSTIPATION; Start 10/04/16 at 00:30 Lorazepam (Ativan) 1 mg Q2H PRN IV AGITATION; Start 10/04/16 at 00:30 Metoprolol Tartrate (Lopressor) 50 mg BID PO Last administered on 10/09/16 09: 02; Admin Dose 50 MG; Start 10/04/16 at 09:00 Morphine Sulfate (morphine) 2 mg Q4H PRN IV PAIN; Start 10/04/16 at 00:30 Nitroglycerin (Nitroglycerin (Sl Tab) 0.4 Mg) 1 tab Q5M PRN SL CHEST PAIN; Start 10/04/16 at 00:30 Ondansetron HCl (Zofran Inj) 4 mg Q6H PRN IV NAUSEA AND/OR VOMITING Last administered on 10/08/16 10:13; Admin Dose 4 MG; Start 10/04/16 at 00:30 Hydralazine HCl (Apresoline) 10 mg Q4H PRN IV ELEVATED SYSTOLIC BP; Start 10/04 at 00:30 Diagnostic Test (Pha) (Accucheck) 1 ea 02 XX Last administered on 10/09/16 02: 16; Admin Dose 1 EA; Start 10/05/16 at 02:00 Hydralazine HCl (Apresoline) 100 mg Q8 PO Last administered on 10/09/16 06:11 ; Admin Dose 100 MG; Start 10/04/16 at 06:00 Miscellaneous Information 1 ea NOTE XX ; Start 10/04/16 at 00:30 Glucose (Glutose) 15 gm Q15M PRN PO DECREASED GLUCOSE; Start 10/04/16 at 00:30 Glucose (Glutose) 22.5 gm Q15M PRN PO DECREASED GLUCOSE; Start 10/04/16 at 00: 30 Dextrose (D50w Syringe) 25 ml Q15M PRN IV DECREASED GLUCOSE; Start 10/04/16 at 00:30 Dextrose (D50w Syringe) 50 ml Q15M PRN IV DECREASED GLUCOSE; Start 10/04/16 at 00:30 Glucagon (Glucagen) 1 mg Q15M PRN IM DECREASED GLUCOSE; Start 10/04/16 at 00:30 Glucose (Glutose) 15 gm Q15M PRN BUCCAL DECREASED GLUCOSE; Start 10/04/16 at 00 :30 Famotidine (Pepcid) 20 mg DAILY PO Last administered on 10/09/16 09:01; Admin Dose 20 MG; Start 10/04/16 at 09:00 Heparin Sodium (Porcine) (Heparin (5000 Units/0.5 ml)) 5,000 unit BID SC Last administered on 10/09/16 09:01; Admin Dose 5,000 UNIT; Start 10/04/16 at 09:00 Acetaminophen (Tylenol Liquid) 650 mg Q6H PRN PO PAIN AND OR ELEVATED TEMP Last administered on 10/06/16 09:17; Admin Dose 650 MG; Start 10/04/16 at 00:30 Amlodipine Besylate (Norvasc) 5 mg BID PO Last administered on 10/09/16 09:01 ; Admin Dose 5 MG; Start 10/04/16 at 09:00 Aspirin (Aspirin) 81 mg DAILY PO Last administered on 10/09/16 09:01; Admin Dose 81 MG; Start 10/04/16 at 09:00 Benazepril HCl (Lotensin) 10 mg BID PO Last administered on 10/09/16 09:02; Admin Dose 10 MG; Start 10/04/16 at 09:00 Docusate Sodium (Colace) 100 mg BID PO Last administered on 10/09/16 09:01; Admin Dose 100 MG; Start 10/04/16 at 10:30 Insulin Glargine (Lantus) 6 unit DAILY@08 SC Last administered on 10/09/16 08: 59; Admin Dose 6 UNIT; Start 10/08/16 at 08:00 JEFF FRANK MD Oct 09, 2016 11:49
--- NOTE | 2016-10-09 12:20 | CONS ---
Date/Time of Note Date/Time of Note DATE: 10/09/16 TIME: 12:20 Consult Date/Type/Reason Admit Date/Time Oct 03, 2016 at 22:15 [facility] Ordering Provider: PEDRO SALINAS MD, [facility] Objective Vital Signs Date Time Temp Pulse Resp B/P Pulse Ox O2 Delivery O2 Flow Rate FiO2 10/08/16 20:04 98.8 73 20 147/67 98 10/07/16 13:53 Room Air Intake and Output 10/08/16 10/08/16 10/09/16 14:59 22:59 06:59 Intake Total 720 ml 620 ml 200 ml Output Total 200 ml Balance 520 ml 620 ml 200 ml Results/Medications Results 24 hrs Laboratory Tests Test 10/08/16 17:17 10/08/16 20:36 10/09/16 07:33 10/09/16 11:56 Bedside Glucose 96 139 102 130 Medications Current Medications Senna (Senokot) 1 tab HS PO Last administered on 10/08/16 20:41; Admin Dose 1 TAB; Start 10/04/16 at 21:00 Bisacodyl (Dulcolax Supp) 10 mg DAILY PRN [place] CONSTIPATION Last administered on 10/06/16 21:30; Admin Dose 10 MG; Start 10/04/16 at 00:30 Lactulose (Enulose) 20 gm DAILY PRN PO CONSTIPATION; Start 10/04/16 at 00:30 Lorazepam (Ativan) 1 mg Q2H PRN IV AGITATION; Start 10/04/16 at 00:30 Metoprolol Tartrate (Lopressor) 50 mg BID PO Last administered on 10/09/16 09: 02; Admin Dose 50 MG; Start 10/04/16 at 09:00 Morphine Sulfate (morphine) 2 mg Q4H PRN IV PAIN; Start 10/04/16 at 00:30 Nitroglycerin (Nitroglycerin (Sl Tab) 0.4 Mg) 1 tab Q5M PRN SL CHEST PAIN; Start 10/04/16 at 00:30 Ondansetron HCl (Zofran Inj) 4 mg Q6H PRN IV NAUSEA AND/OR VOMITING Last administered on 10/08/16 10:13; Admin Dose 4 MG; Start 10/04/16 at 00:30 Hydralazine HCl (Apresoline) 10 mg Q4H PRN IV ELEVATED SYSTOLIC BP; Start 10/04 at 00:30 Diagnostic Test (Pha) (Accucheck) 1 ea 02 XX Last administered on 10/09/16 02: 16; Admin Dose 1 EA; Start 10/05/16 at 02:00 Hydralazine HCl (Apresoline) 100 mg Q8 PO Last administered on 10/09/16 06:11 ; Admin Dose 100 MG; Start 10/04/16 at 06:00 Miscellaneous Information 1 ea NOTE XX ; Start 10/04/16 at 00:30 Glucose (Glutose) 15 gm Q15M PRN PO DECREASED GLUCOSE; Start 10/04/16 at 00:30 Glucose (Glutose) 22.5 gm Q15M PRN PO DECREASED GLUCOSE; Start 10/04/16 at 00: 30 Dextrose (D50w Syringe) 25 ml Q15M PRN IV DECREASED GLUCOSE; Start 10/04/16 at 00:30 Dextrose (D50w Syringe) 50 ml Q15M PRN IV DECREASED GLUCOSE; Start 10/04/16 at 00:30 Glucagon (Glucagen) 1 mg Q15M PRN IM DECREASED GLUCOSE; Start 10/04/16 at 00:30 Glucose (Glutose) 15 gm Q15M PRN BUCCAL DECREASED GLUCOSE; Start 10/04/16 at 00 :30 Famotidine (Pepcid) 20 mg DAILY PO Last administered on 10/09/16 09:01; Admin Dose 20 MG; Start 10/04/16 at 09:00 Heparin Sodium (Porcine) (Heparin (5000 Units/0.5 ml)) 5,000 unit BID SC Last administered on 10/09/16 09:01; Admin Dose 5,000 UNIT; Start 10/04/16 at 09:00 Acetaminophen (Tylenol Liquid) 650 mg Q6H PRN PO PAIN AND OR ELEVATED TEMP Last administered on 10/06/16 09:17; Admin Dose 650 MG; Start 10/04/16 at 00:30 Amlodipine Besylate (Norvasc) 5 mg BID PO Last administered on 10/09/16 09:01 ; Admin Dose 5 MG; Start 10/04/16 at 09:00 Aspirin (Aspirin) 81 mg DAILY PO Last administered on 10/09/16 09:01; Admin Dose 81 MG; Start 10/04/16 at 09:00 Benazepril HCl (Lotensin) 10 mg BID PO Last administered on 10/09/16 09:02; Admin Dose 10 MG; Start 10/04/16 at 09:00 Docusate Sodium (Colace) 100 mg BID PO Last administered on 10/09/16 09:01; Admin Dose 100 MG; Start 10/04/16 at 10:30 Insulin Glargine (Lantus) 6 unit DAILY@08 SC Last administered on 10/09/16 08: 59; Admin Dose 6 UNIT; Start 10/08/16 at 08:00 STACEY GRAF MD Oct 09, 2016 12:20
--- NOTE | 2016-10-09 12:55 | PN ---
DATE: 10/09/2016 SUBJECTIVE: The patient Larry is stable this morning. . VITAL SIGNS: Temperature is 98, pulse is 77, blood pressure 142/64, O2 saturation 96% on room air. NECK: Supple, no JVD or lymphadenopathy. CARDIAC: S1, S2, no added sounds or murmurs. CHEST: Diminished air entry bilaterally. No rales or wheezes. ABDOMEN: Soft, nontender. No guarding or rebound. EXTREMITIES: No cyanosis, clubbing. NEUROLOGIC: Generalized weakness. LABORATORY DATA: CBC, chemistry pending. IMPRESSION AND PLAN: 1. Congestive cardiac failure, stable. 2. History of E.coli sepsis. 3. Thrombocytopenia. PLAN: 1. Continue hematology/oncology recommendations. 2. Continue current glycemic management. 3. Repeat baseline labs. 4. DVT and GI prophylaxis. Dictated By: PEDRO YORK/ARLENE Conf#: [id number] DID#: [id number]
--- NOTE | 2016-10-09 18:38 | CONS ---
Date/Time of Note Date/Time of Note DATE: 10/09/16 TIME: 18:37 Assessment/Plan Assessment/Plan Chief Complaint/Hosp Course IMPRESSION: 1. Congestive heart failure, systolic and diastolic, acute on chronic. Last EF of 45% to 60% with improved volume status. 2. Hypertension-Mildly elevated 3. Positive troponin trending negative at outside hospital. No chest pain. 4. Thrombocytopenia improved. 5. Renal failure. 6. Bacteremia, status post antibiotics 7. Urinary tract infection. Recc: -Continue BB/norvasc -Make slight increase in benazepril to improve SBP control -Continue asa/SQ heparin -Follow volume status closely -PT/OT Problems: Consultation Date/Type/Reason Admit Date/Time Oct 03, 2016 at 22:15 Initial Consult Date 10/04/16 Type of Consultation: Cardiology Reason for Consultation positive troponin/HTN Referring Provider: PEDRO SALINAS MD, [facility] Exam/Review of Systems Vital Signs Vitals Vital Signs Date Time Temp Pulse Resp B/P Pulse Ox O2 Delivery O2 Flow Rate FiO2 10/09/16 07:30 98.1 77 18 142/64 98 10/07/16 13:53 Room Air Intake and Output 10/08/16 10/08/16 10/09/16 15:00 23:00 07:00 Intake Total 720 ml 620 ml 200 ml Output Total 200 ml Balance 520 ml 620 ml 200 ml Exam Review of Systems: CONSTITUTIONAL: No fevers, chills. PULMONARY: No sob CARDIOVASCULAR: No chest pain/palpitations GASTROINTESTINAL: No nausea/vomiting. GENITOURINARY: No hematuria/dysuria. MUSCULOSKELETAL: No myagias/arthalgias. PSYCHIATRIC: The patient denies depression. NEUROLOGIC: No weakness Constitutional: alert Psych: no complaints Head: normocephalic ENMT: mucosa pink and moist Neck: jvd (8 cm water), supple Respiratory: diminished breath sounds (at bases/B) Cardiovascular: regular rate and rhythm Gastrointestinal: non-tender, soft Extremities: pitting pedal edema (none) Neurological: other (NO focal deficits) Results Results 24 hrs Laboratory Tests Test 10/08/16 20:36 10/09/16 07:33 10/09/16 11:56 10/09/16 17:46 Bedside Glucose 139 102 130 225 H Medications Medications Current Medications Senna (Senokot) 1 tab HS PO Last administered on 10/08/16 20:41; Admin Dose 1 TAB; Start 10/04/16 at 21:00 Bisacodyl (Dulcolax Supp) 10 mg DAILY PRN CO CONSTIPATION Last administered on 10/06/16 21:30; Admin Dose 10 MG; Start 10/04/16 at 00:30 Lactulose (Enulose) 20 gm DAILY PRN PO CONSTIPATION; Start 10/04/16 at 00:30 Lorazepam (Ativan) 1 mg Q2H PRN IV AGITATION; Start 10/04/16 at 00:30 Metoprolol Tartrate (Lopressor) 50 mg BID PO Last administered on 10/09/16 09: 02; Admin Dose 50 MG; Start 10/04/16 at 09:00 Morphine Sulfate (morphine) 2 mg Q4H PRN IV PAIN; Start 10/04/16 at 00:30 Nitroglycerin (Nitroglycerin (Sl Tab) 0.4 Mg) 1 tab Q5M PRN SL CHEST PAIN; Start 10/04/16 at 00:30 Ondansetron HCl (Zofran Inj) 4 mg Q6H PRN IV NAUSEA AND/OR VOMITING Last administered on 10/08/16 10:13; Admin Dose 4 MG; Start 10/04/16 at 00:30 Hydralazine HCl (Apresoline) 10 mg Q4H PRN IV ELEVATED SYSTOLIC BP; Start 10/04 at 00:30 Diagnostic Test (Pha) (Accucheck) 1 ea 02 XX Last administered on 10/09/16 02: 16; Admin Dose 1 EA; Start 10/05/16 at 02:00 Hydralazine HCl (Apresoline) 100 mg Q8 PO Last administered on 10/09/16 13:07 ; Admin Dose 100 MG; Start 10/04/16 at 06:00 Miscellaneous Information 1 ea NOTE XX ; Start 10/04/16 at 00:30 Glucose (Glutose) 15 gm Q15M PRN PO DECREASED GLUCOSE; Start 10/04/16 at 00:30 Glucose (Glutose) 22.5 gm Q15M PRN PO DECREASED GLUCOSE; Start 10/04/16 at 00: 30 Dextrose (D50w Syringe) 25 ml Q15M PRN IV DECREASED GLUCOSE; Start 10/04/16 at 00:30 Dextrose (D50w Syringe) 50 ml Q15M PRN IV DECREASED GLUCOSE; Start 10/04/16 at 00:30 Glucagon (Glucagen) 1 mg Q15M PRN IM DECREASED GLUCOSE; Start 10/04/16 at 00:30 Glucose (Glutose) 15 gm Q15M PRN BUCCAL DECREASED GLUCOSE; Start 10/04/16 at 00 :30 Famotidine (Pepcid) 20 mg DAILY PO Last administered on 10/09/16 09:01; Admin Dose 20 MG; Start 10/04/16 at 09:00 Heparin Sodium (Porcine) (Heparin (5000 Units/0.5 ml)) 5,000 unit BID SC Last administered on 10/09/16 09:01; Admin Dose 5,000 UNIT; Start 10/04/16 at 09:00 Acetaminophen (Tylenol Liquid) 650 mg Q6H PRN PO PAIN AND OR ELEVATED TEMP Last administered on 10/06/16 09:17; Admin Dose 650 MG; Start 10/04/16 at 00:30 Amlodipine Besylate (Norvasc) 5 mg BID PO Last administered on 10/09/16 09:01 ; Admin Dose 5 MG; Start 10/04/16 at 09:00 Aspirin (Aspirin) 81 mg DAILY PO Last administered on 10/09/16 09:01; Admin Dose 81 MG; Start 10/04/16 at 09:00 Benazepril HCl (Lotensin) 10 mg BID PO Last administered on 10/09/16 09:02; Admin Dose 10 MG; Start 10/04/16 at 09:00 Docusate Sodium (Colace) 100 mg BID PO Last administered on 10/09/16 09:01; Admin Dose 100 MG; Start 10/04/16 at 10:30 Insulin Glargine (Lantus) 6 unit DAILY@08 SC Last administered on 10/09/16 08: 59; Admin Dose 6 UNIT; Start 10/08/16 at 08:00 ALLISON CONTRERAS Oct 09, 2016 18:38
[2016-10-09 19:57] VITALS: BP 130/57; RESP 19
[2016-10-09] MEDS: SENNA TAB PO SCH (21:00)
[2016-10-10] MEDS: LEVALBUTEROL (HFA) 15 GM INHALER INH SCH ×4 (01:00→12:20)
[2016-10-10] MEDS: ACCUCHECK AT 2AM (Patients on SS coverage) XX SCH (02:00)
[2016-10-10 06:45] LABS: ADD SCAN DIFF NO
[2016-10-10 06:51] LABS: BASOPHIL # 0.1 10^3/ul (0.0-0.1); EOSINOPHILS # 0.2 10^3/ul (0.0-0.5); EOSINOPHILS % 2.3 % (0.0-7.0); HEMATOCRIT 36.4 % (37.0-47.0); HEMOGLOBIN 11.7 g/dl (12.0-16.0); LYMPHOCYTES # 2.3 10^3/ul (0.8-2.9); LYMPHOCYTES % 27.6 % (15.0-51.0); MEAN CORPUSCULAR HEMOGLOBIN 29.3 pg (29.0-33.0); MEAN CORPUSCULAR HGB CONC 32.1 g/dl (32.0-37.0); MEAN CORPUSCULAR VOLUME 91.2 fl (82.0-101.0); MEAN PLATELET VOLUME 11.1 fl (7.4-10.4); MONOCYTE # 0.9 10^3/ul (0.3-0.9); MONOCYTES % 10.6 % (0.0-11.0); NEUTROPHIL # 4.9 10^3/ul (1.6-7.5); NEUTROPHILS % 58.3 % (39.0-77.0); PLATELET COUNT 320 10^3/UL (140-415); RED BLOOD COUNT 3.99 10^6/ul (4.20-5.40); RED CELL DISTRIBUTION WIDTH 16.1 % (11.5-14.5); WHITE BLOOD COUNT 8.4 10^3/ul (4.8-10.8)
[2016-10-10 06:59] LABS: POTASSIUM 4.1 mmol/L (3.5-5.1)
[2016-10-10 07:01] LABS: CREATININE 0.91 mg/dl (0.44-1.00)
[2016-10-10 07:02] LABS: CALCIUM 8.8 mg/dl (8.4-10.2); MAGNESIUM 1.8 mg/dl (1.7-2.5); PHOSPHORUS 4.3 mg/dl (2.5-4.9)
[2016-10-10 07:30] VITALS: BP 122/60; RESP 18
[2016-10-10] MEDS: Insulin NOVOLOG SS MODERATE Algorithm (SS with meals and bedtime) SC SCH ×2 (07:35→12:19)
[2016-10-10] MEDS: FAMOTIDINE 20 MG TAB PO SCH (08:46)
[2016-10-10] MEDS: AMLODIPINE 5 MG TAB PO SCH (08:46)
[2016-10-10] MEDS: ASPIRIN 81 MG TAB PO SCH (08:46)
[2016-10-10] MEDS: DOCUSATE SODIUM 100 MG CAP PO SCH (08:46)
[2016-10-10] MEDS: METOPROLOL 50 MG TAB PO SCH (08:47)
[2016-10-10] MEDS: BENAZEPRIL 10 MG TAB PO SCH (08:47)
[2016-10-10] MEDS: HEPARIN 5,000 UNIT/0.5 ML SYG SC SCH (08:48)
[2016-10-10] MEDS: INSULIN GLARGINE [LANtus] 3 ML PEN SC SCH (08:48)
--- NOTE | 2016-10-10 11:33 | CONS ---
Date/Time of Note Date/Time of Note DATE: 10/10/16 TIME: 11:32 Consult Date/Type/Reason Admit Date/Time Oct 03, 2016 at 22:15 Initial Consult Date 10/04/16 Type of Consultation: internal medicine Ordering Provider: P[facility]RO SALINAS MD, [facility] Subjective The patient remained stable this morning no new events Objective Vital Signs Date Time Temp Pulse Resp B/P Pulse Ox O2 Delivery O2 Flow Rate FiO2 10/09/16 19:57 98.8 72 19 130/57 97 10/07/16 13:53 Room Air Intake and Output 10/09/16 10/09/16 10/10/16 15:00 23:00 07:00 Intake Total 700 ml 820 ml 300 ml Balance 700 ml 820 ml 300 ml Exam VITAL SIGNS: As above NECK: Supple, no JVD or lymphadenopathy. CARDIAC: S1, S2, no added sounds or murmurs. CHEST: Diminished air entry bilaterally. No rales or wheezes. ABDOMEN: Soft, nontender. No guarding or rebound. EXTREMITIES: No cyanosis, clubbing. NEUROLOGIC: Generalized weakness. Results/Medications Result Diagram: 10/10/16 0610/10/16604 Results 24 hrs Laboratory Tests Test 10/09/16 11:56 10/09/16 17:46 10/09/16 20:24 10/10/16 06:05 Bedside Glucose 130 225 H 136 White Blood Count 8.4 Red Blood Count 3.99 L Hemoglobin 11.7 L Hematocrit 36.4 L Mean Corpuscular Volume 91.2 Mean Corpuscular Hemoglobin 29.3 Mean Corpuscular Hemoglobin Concent 32.1 Red Cell Distribution Width 16.1 H Platelet Count 320 Mean Platelet Volume 11.1 H Neutrophils % 58.3 Lymphocytes % 27.6 Monocytes % 10.6 Eosinophils % 2.3 Basophils % 1.0 Nucleated Red Blood Cells % 0.0 Neutrophils # 4.9 Lymphocytes # 2.3 Monocytes # 0.9 Eosinophils # 0.2 Basophils # 0.1 Nucleated Red Blood Cells # 0.0 Sodium Level 140 Potassium Level 4.1 Chloride Level 102 Carbon Dioxide Level 29 Anion Gap 13 Blood Urea Nitrogen 13 Creatinine 0.91 Glucose Level 88 Calcium Level 8.8 Phosphorus Level 4.3 Magnesium Level 1.8 Test 10/10/16 07:44 Bedside Glucose 105 Medications Current Medications Senna (Senokot) 1 tab HS PO Last administered on 10/08/16 20:41; Admin Dose 1 TAB; Start 10/04/16 at 21:00 Bisacodyl (Dulcolax Supp) 10 mg DAILY PRN [place] CONSTIPATION Last administered on 10/06/16 21:30; Admin Dose 10 MG; Start 10/04/16 at 00:30 Lactulose (Enulose) 20 gm DAILY PRN PO CONSTIPATION; Start 10/04/16 at 00:30 Lorazepam (Ativan) 1 mg Q2H PRN IV AGITATION; Start 10/04/16 at 00:30 Metoprolol Tartrate (Lopressor) 50 mg BID PO Last administered on 10/10/16 08: 47; Admin Dose 50 MG; Start 10/04/16 at 09:00 Morphine Sulfate (morphine) 2 mg Q4H PRN IV PAIN; Start 10/04/16 at 00:30 Nitroglycerin (Nitroglycerin (Sl Tab) 0.4 Mg) 1 tab Q5M PRN SL CHEST PAIN; Start 10/04/16 at 00:30 Ondansetron HCl (Zofran Inj) 4 mg Q6H PRN IV NAUSEA AND/OR VOMITING Last administered on 10/08/16 10:13; Admin Dose 4 MG; Start 10/04/16 at 00:30 Hydralazine HCl (Apresoline) 10 mg Q4H PRN IV ELEVATED SYSTOLIC BP; Start 10/04 at 00:30 Diagnostic Test (Pha) (Accucheck) 1 ea 02 XX Last administered on 10/09/16 02: 16; Admin Dose 1 EA; Start 10/05/16 at 02:00 Hydralazine HCl (Apresoline) 100 mg Q8 PO Last administered on 10/10/16 05:29 ; Admin Dose 100 MG; Start 10/04/16 at 06:00 Miscellaneous Information 1 ea NOTE XX ; Start 10/04/16 at 00:30 Glucose (Glutose) 15 gm Q15M PRN PO DECREASED GLUCOSE; Start 10/04/16 at 00:30 Glucose (Glutose) 22.5 gm Q15M PRN PO DECREASED GLUCOSE; Start 10/04/16 at 00: 30 Dextrose (D50w Syringe) 25 ml Q15M PRN IV DECREASED GLUCOSE; Start 10/04/16 at 00:30 Dextrose (D50w Syringe) 50 ml Q15M PRN IV DECREASED GLUCOSE; Start 10/04/16 at 00:30 Glucagon (Glucagen) 1 mg Q15M PRN IM DECREASED GLUCOSE; Start 10/04/16 at 00:30 Glucose (Glutose) 15 gm Q15M PRN BUCCAL DECREASED GLUCOSE; Start 10/04/16 at 00 :30 Famotidine (Pepcid) 20 mg DAILY PO Last administered on 10/10/16 08:46; Admin Dose 20 MG; Start 10/04/16 at 09:00 Heparin Sodium (Porcine) (Heparin (5000 Units/0.5 ml)) 5,000 unit BID SC Last administered on 10/10/16 08:48; Admin Dose 5,000 UNIT; Start 10/04/16 at 09:00 Acetaminophen (Tylenol Liquid) 650 mg Q6H PRN PO PAIN AND OR ELEVATED TEMP Last administered on 10/06/16 09:17; Admin Dose 650 MG; Start 10/04/16 at 00:30 Amlodipine Besylate (Norvasc) 5 mg BID PO Last administered on 10/10/16 08:46 ; Admin Dose 5 MG; Start 10/04/16 at 09:00 Aspirin (Aspirin) 81 mg DAILY PO Last administered on 10/10/16 08:46; Admin Dose 81 MG; Start 10/04/16 at 09:00 Docusate Sodium (Colace) 100 mg BID PO Last administered on 10/10/16 08:46; Admin Dose 100 MG; Start 10/04/16 at 10:30 Insulin Glargine (Lantus) 6 unit DAILY@08 SC Last administered on 10/10/16 08: 48; Admin Dose 6 UNIT; Start 10/08/16 at 08:00 Benazepril HCl (Lotensin) 20 mg BID PO Last administered on 10/10/16 08:47; Admin Dose 20 MG; Start 10/09/16 at 21:00 Assessment/Plan Chief Complaint/Hosp Course LABORATORY DATA: CBC, chemistry pending. IMPRESSION AND PLAN: 1. Congestive cardiac failure, stable. 2. History of E.coli sepsis. 3. Thrombocytopenia. PLAN: 1. Continue hematology/oncology recommendations. 2. Continue current glycemic management. 3. Repeat baseline labs. 4. DVT and GI prophylaxis. Disposition discharge planning Problems: VADGAMA,PEDRO V. MD, [facility] Oct 10, 2016 11:33
[2016-10-10] MEDS: ACETAMINOPHEN 650MG/20.3ML CUP PO PRN (15:06)
--- NOTE | 2016-10-10 22:48 | CONS ---
Date/Time of Note Date/Time of Note DATE: 10/10/16 TIME: 22:46 Assessment/Plan Assessment/Plan Chief Complaint/Hosp Course thrombocytopenia in pt with severe sepsis, exposed to multiple meds with pos thrombocytopenic effect, including VANCO, ZOSYN, HEPARIN,CEFAZOLIN- RESOLVED NO EVIDENCE OF DIC cont to monitor blood count closely HIPA- NEG PLATELET COUNT NORMALIZED Leukocytosis. REACTIVE MONITOR IMPROVING Anemia. C/W ACD MONITOR BLOOD COUNT CLOSELY TRANSFUSE NEEDED Severe Sepsis with septic shock 2/2 Ecoli UTI /Bacteremia Acute renal failure - 2/2 to ATN from sepsis Type II DM - Hyperglycemic on D5W Metabolic / Lactic acidosis 2/2 #1 Acute resp failure now ventilator dependent NSTEMI versus demand ischemia Positive troponin, assess significance, assess for true acute coronary syndrome. Metabolic acidosis respiratory failure, vent dependent incomplete database OK TO DC Problems: Consultation Date/Type/Reason Admit Date/Time Oct 03, 2016 at 22:15 [facility] Referring Provider: PEDRO SALINAS MD, [facility] 24 HR Interval Summary Free Text/Dictation IMPROVING COUNT REVIEWED NO BLEEDING DC - PLAN IN PROCESS Exam/Review of Systems Vital Signs Vitals Vital Signs Date Time Temp Pulse Resp B/P Pulse Ox O2 Delivery O2 Flow Rate FiO2 10/10/16 07:30 98.3 81 18 122/60 95 10/07/16 13:53 Room Air Intake and Output 10/09/16 10/09/16 10/10/16 15:00 23:00 07:00 Intake Total 700 ml 820 ml 300 ml Balance 700 ml 820 ml 300 ml Exam Review of Systems: CONSTITUTIONAL: No fevers, chills. PULMONARY: No sob CARDIOVASCULAR: No chest pain/palpitations GASTROINTESTINAL: No nausea/vomiting. GENITOURINARY: No hematuria/dysuria. MUSCULOSKELETAL: No myagias/arthalgias. PSYCHIATRIC: The patient denies depression. NEUROLOGIC: No weakness Constitutional: alert Psych: no complaints Head: normocephalic ENMT: mucosa pink and moist Neck: jvd (8 cm water), supple Respiratory: diminished breath sounds (at bases/B) Cardiovascular: regular rate and rhythm Gastrointestinal: non-tender, soft Extremities: pitting pedal edema (none) Neurological: other (NO focal deficits) Results Result Diagram: 10/10/1660410/10/16 06 Results 24 hrs Laboratory Tests Test 10/10/16 06:05 10/10/16 07:44 10/10/16 12:10 White Blood Count 8.4 Red Blood Count 3.99 L Hemoglobin 11.7 L Hematocrit 36.4 L Mean Corpuscular Volume 91.2 Mean Corpuscular Hemoglobin 29.3 Mean Corpuscular Hemoglobin Concent 32.1 Red Cell Distribution Width 16.1 H Platelet Count 320 Mean Platelet Volume 11.1 H Neutrophils % 58.3 Lymphocytes % 27.6 Monocytes % 10.6 Eosinophils % 2.3 Basophils % 1.0 Nucleated Red Blood Cells % 0.0 Neutrophils # 4.9 Lymphocytes # 2.3 Monocytes # 0.9 Eosinophils # 0.2 Basophils # 0.1 Nucleated Red Blood Cells # 0.0 Sodium Level 140 Potassium Level 4.1 Chloride Level 102 Carbon Dioxide Level 29 Anion Gap 13 Blood Urea Nitrogen 13 Creatinine 0.91 Glucose Level 88 Calcium Level 8.8 Phosphorus Level 4.3 Magnesium Level 1.8 Bedside Glucose 105 163 JEFF FRANK MD Oct 10, 2016 22:47
== END 2016-10-10 15:40 | disposition home health service (06) | DRG 91 ==
LOC: VRC 22:15
PROVIDERS: ADMIT Physical Medicine & Rehabilitation; ATTEND Internal Medicine Pulmonary Disease
DX: G92 Toxic encephalopathy (principal); I50.43 Acute on chronic combined systolic (congestive) and diastolic (congestive) heart failure; D69.6 Thrombocytopenia, unspecified; N39.0 Urinary tract infection, site not specified; R78.81 Bacteremia; R13.10 Dysphagia, unspecified; I13.0 Hypertensive heart and chronic kidney disease with heart failure and stage 1 through stage 4 chronic kidney disease, or unspecified chronic kidney disease; E11.9 Type 2 diabetes mellitus without complications; D64.9 Anemia, unspecified; K43.9 Ventral hernia without obstruction or gangrene; Z79.82 Long term (current) use of aspirin; Z79.4 Long term (current) use of insulin; N18.9 Chronic kidney disease, unspecified
CPT/HCPCS: 80048; 80053; 80061; 81001; 81003; 82962; 83735; 84100; 85025; 87081; 87086; 92507; 92523; 92526; 92610; 93005; 97110; 97112; 97116; 97150; 97163; 97166; 97530; 97535; J1644; J1815; J2405